=== PATIENT | female | born 1965 | race Caucasian/White ===

== ENCOUNTER 2019-09-18 17:10 | Emergency (ER) | payer MEDICAID, SELFPAY ==
[2019-09-18 17:17] VITALS: BP 155/93; PULSE 94; RESP 18; TEMP 36.6; O2SAT 95; BMI 48.8
== END 2019-09-18 19:14 | disposition left against medical advice (07) ==
PROVIDERS: Emergency Provider Emergency Medicine
DX: Z53.21 Procedure and treatment not carried out due to patient leaving prior to being seen by health care provider (principal)
CPT/HCPCS: 99281

== ENCOUNTER 2019-09-19 15:19 | Emergency (ER) | payer MEDICAID, SELFPAY ==
[2019-09-19 15:40] VITALS: BP 142/92; PULSE 107; RESP 18; TEMP 36.7; O2SAT 97; BMI 48.8
[2019-09-19 16:46] VITALS: BP 146/106; PULSE 101; RESP 20; O2SAT 97
[2019-09-19 16:55] LABS: Add Urine Microscopic? NO
[2019-09-19 16:58] LABS: Bilirubin Urine Neg (NEGATIVE); Blood Urine Neg (Negative); Glucose Urine UA Norm (Normal); Ketones Urine Negative (Negative); Leukocyte Esterase Urine Negative (Negative); Nitrate Urine Negative (Negative); Protein Urine Neg (Negative); Specific Gravity, Urine 1.015 (1.005-1.030); Urine Appearance Clear (CLEAR); Urine Color Yellow (Yellow); Urobilinogen Urine Neg (Negative); pH Urine 7 (5-7)
--- NOTE | 2019-09-19 16:59 | CTR_ITS ---
PROCEDURE INFORMATION: Exam: CT Lumbar Spine Without Contrast Exam date and time: 09/19/2019 5:08 PM Age: 53 years old Clinical indication: Low back pain; Additional info: Back pain, radiates to right leg TECHNIQUE: Imaging protocol: Computed tomography images of the lumbar spine without contrast. Radiation optimization: All CT scans at this facility use at least one of these dose optimization techniques: automated exposure control; mA and/or kV adjustment per patient size (includes targeted exams where dose is matched to clinical indication); or iterative reconstruction. COMPARISON: CR Lumbar Spine 2-3 views* [id number] 06/02/2017 8:20 PM RADIATION DOSE METRICS: Total DLP (mGy-cm): 2918.69 FINDINGS: Vertebrae: No fracture is identified. L1-L2: No significant disc protrusion. No severe spinal canal stenosis. No significant neural foraminal narrowing. L2-L3: there is mild decreased height of the disc space and there are anterior osteophytes. There is no focal disc herniation or stenosis. L3-L4: There is moderate narrowing of the L3-L4 disc space with small anterior osteophytes. There is mild posterior bulging of the disc without focal herniation or stenosis. L4-L5: There is mild decreased height of the disc and vacuum disc phenomenon with diffuse posterior bulging of the disc without significant sagittal or foraminal stenosis. L5-S1: There is decreased height of the disc space with vacuum disc phenomenon and mild diffuse posterior bulging of the disc without focal herniation or significant stenosis. There are some degenerative changes in the facet joints bilaterally. Soft tissues: Paraspinous soft tissues are unremarkable. CT/CT lumbar spine wo con* [id number] IMPRESSION: Degenerative changes as described. Radiation Dose CTDIVOL = (mGy): DLP = 2918.69 (mGy-cm)
[2019-09-19 17:00] LABS: Basophils # 0.1 10^3/uL (0.0-0.1); Basophils % 0.5 %; Eosinophils # 0.4 10^3/uL (0.0-0.8); Eosinophils % 2.6 %; Hematocrit 44.3 % (37.0-47.0); Hemoglobin 13.8 g/dL (11.5-15.3); Lymphocytes # 4.5 10^3/uL (0.8-4.8); Lymphocytes % 29.4 %; Mean Corpuscular HGB Conc 31.2 g/dL (30.0-36.0); Mean Corpuscular Hemoglobin 28.9 pg (28.0-34.0); Mean Corpuscular Volume 92.7 fL (81-99); Mean Platelet Volume 10.2 fL (7.4-10.4); Monocytes # 1.3 10^3/uL (0.2-0.9); Monocytes % 8.3 %; Neutrophils # 9.03 10^3/uL (1.8-7.7); Neutrophils % 58.8 %; Nucleated Red Blood Cells % 0 %; Platelet Count 239 10^3/cmm (130-400); Red Blood Count 4.78 10^6/uL (4.1-5.3); Red Cell Distribution Width 13.6 % (12.1-15.1); White Blood Count 15.4 10^3/uL (4.0-10.0)
[2019-09-19 17:31] LABS: Alanine Aminotransferase 23 U/L (0-33); Albumin Level 3.9 g/dL (3.5-5.2); Alkaline Phosphatase 69 IU/L (35-105); Anion Gap 14.1 (5-19); Aspartate Amino Transferase 47 U/L (0-32); Blood Urea Nitrogen 10 mg/dL (6-20); C Reactive Protein 8.1 mg/L (0.0-4.9); Calcium 9.2 mg/dL (8.5-10.5); Carbon Dioxide 28 mmol/L (22-29); Chloride 102 mmol/L (98-107); Globulin 3.6 g/dL (1.3-4.6); Glomerular Filtration Rate 166.3 mL/min (90-130); Glucose 108 mg/dL (65-115); Osmolality Calculated 287 mOsm/kg (285-295); Potassium 4.1 mmol/L (3.5-5.1); Sodium 140 mmol/L (136-145); Total Bilirubin 0.2 mg/dL (0.15-1.2); Total Protein 7.5 g/dL (6.6-8.7)
[2019-09-19 18:20] VITALS: BP 144/82; PULSE 101; RESP 16; O2SAT 99
[2019-09-19 19:02] VITALS: RESP 18
[2019-09-19] MEDS: oxyCODONE-APAP 5-325 mg Tablet 2 TAB PO (19:02)
[2019-09-19 19:38] VITALS: BP 146/90; PULSE 94; RESP 18; O2SAT 97
[2019-09-19] MEDS: promethazine 25 mg Tablet PO (19:41)
--- NOTE | 2019-09-20 10:26 | DCPLANNER ---
channel sales manager had message to speak with patient about getting established with a primary care physician. channel sales manager spoke with patient, and she stated that she did want help in getting established with a primary care physician. channel sales manager called the [facility], spoke with Shara, gave clinic patients information. A follow up appointment was scheduled for Tuesday, September 26, 2019 at 2:[address] Garcia. channel sales manager called patient and informed patient of the scheduled appointment. Patient stated that she would attend the appointment.
--- NOTE | 2019-09-20 15:04 | W.ED.FEMALGU ---
HPI - Female Genitourinary General: Chief complaint: Urogenital-Female Stated complaint: BACK PAIN Time Seen by Provider: 09/19/19 16:38 History of Present Illness: HPI Narrative: This patient is a 53-year-old female presenting with back pain. She has a history of chronic back pain but it is been much worse recently since she has been moving. She denies any specific injury. The pain does go down her right leg at times. She has previously taken Percocet for her back pain but does not have any as she does not have a primary care physician here yet. No neurologic symptoms. No bladder or bowel incontinence. MD elicited complaint: back pain Pertinent past history: other (Morbid obesity) Onset (ago): day(s) (Several) Quality of pain: sharp Consistency: constant Associated symptoms: Deny abdominal pain Review of Systems GI: Denies: abdominal pain, diarrhea or constipation : Denies: difficulty voiding or dysuria Musc: Reports: back pain; Denies: extremity pain, extremity swelling or joint pain Neuro: Denies: numbness in extremities, weakness in extremities or difficulty walking [facility] PFSH: Social History (Updated 09/18/19 @ 17:24 by Radha Hernandez RN) Smoking and tobacco status: current every day smoker Alcohol intake: never Physical Exam Const: COMMON NORMALS: no acute distress, patient oriented x3, no limitations and alert GENERAL APPEARANCE: cooperative and comfortable HENMT: HEAD & SCALP: normal to inspection FACE & SINUS: normal facial exam Eye: GENERAL EYE: appearance normal, both eyes and all related structures Neck/C-Spine: COMMON NORMALS: supple, no meningeal signs and no JVD Chest: COMMONS NORMALS: normal inspection of the chest Resp: COMMON NORMALS: normal respiratory effort, No use of accessory muscles and clear to auscultation bilaterally AUSCULTATION: clear to auscultation bilaterally Cardio: COMMON NORMALS: no JVD, regular rate, regular rhythm and No murmurs present (Cardio) RATE: regular rate RHYTHM: regular rhythm GI: COMMON NORMALS: Normal to inspection, nondistended, normoactive bowel sounds present, Soft to palpation and non-tender INSPECTION: Yes normal to inspection AUSCULTATION: Yes normoactive bowel sounds PALPATION: Yes Soft to palpation Back/Pelvis: LUMBAR SPINE/LOWER BACK: Yes pain with ROM and Yes lumbar spinal tenderness Extremity: COMMON NORMALS: normal to inspection Neuro: COMMON NORMALS: patient oriented x3, moves all extremities, no focal motor deficits and no sensory deficits noted SENSORIUM/ORIENTATION: Yes alert MENINGEAL SIGNS: Yes no meningeal signs Psych: COMMON NORMALS: mental status grossly normal, cooperative and normal affect Skin: COMMON NORMALS: no rashes or lesions noted and turgor normal GENERAL SKIN EXAM: no rashes or lesions noted and turgor normal Course ED course: Did not show any acute findings but plenty of chronic reasons for pain. She was clearly uncomfortable and I did give her a very small prescription for Percocet and a case management referral to help her find a primary care physician. Disc problems in the past. Because the pain was radiating down her leg and showed no prior studies are to get a CT scan. Vital Signs: Vital signs: Vital Signs Temperature 98.0 F 09/19/19 15:40 Pulse Rate 94 09/19/19 19:38 Respiratory Rate 18 09/19/19 19:38 Blood Pressure 146/90 09/19/19 19:38 Pulse Oximetry 97 09/19/19 19:38 MDM - Female Lab Data: Labs: Lab Results 09/19/19 09/19/19 09/19/19 Range/Units 16:50 16:51 16:51 WBC 15.4 H (4.0-10.0) 10^3/ uL RBC 4.78 (4.1-5.3) 10^6/u L Hgb 13.8 (11.5-15.3) g/dL Hct 44.3 (37.0-47.0) % MCV 92.7 (81-99) fL MCH 28.9 (28.0-34.0) pg MCHC 31.2 (30.0-36.0) g/dL RDW 13.6 (12.1-15.1) % Plt Count 239 (130-400) 10^3/c mm MPV 10.2 (7.4-10.4) fL Neut % (Auto) 58.8 % Lymph % (Auto) 29.4 % Dolores % (Auto) 8.3 % Eos % (Auto) 2.6 % Baso % (Auto) 0.5 % Neut # (Auto) 9.03 H (1.8-7.7) 10^3/u L Lymph # (Auto) 4.5 (0.8-4.8) 10^3/u L Dolores # (Auto) 1.3 H (0.2-0.9) 10^3/u L Eos # (Auto) 0.4 (0.0-0.8) 10^3/u L Baso # (Auto) 0.1 (0.0-0.1) 10^3/u L Nucleated RBC % (a uto) 0 % Nucleated RBCs # 0.0 /100WBC Sodium 140 (136-145) mmol/L Potassium 4.1 (3.5-5.1) mmol/L Chloride 102 (98-107) mmol/L Carbon Dioxide 28 (22-29) mmol/L Anion Gap 14.1 (5-19) BUN 10 (6-20) mg/dL Creatinine 0.4 L (0.5-0.9) mg/dL GFR Calculation 166.3 H (90-130) mL/min Glucose 108 (65-115) mg/dL Calculated Osmolal ity 287 (285-295) mOsm/k g Calcium 9.2 (8.5-10.5) mg/dL Total Bilirubin 0.2 (0.15-1.2) mg/dL AST 47 H (0-32) U/L ALT 23 (0-33) U/L Alkaline Phosphata se 69 (35-105) IU/L C-Reactive Protein (0.0-4.9) mg/L Total Protein 7.5 (6.6-8.7) g/dL Albumin 3.9 (3.5-5.2) g/dL Globulin 3.6 (1.3-4.6) g/dL Urine Color Yellow (Yellow) Urine Appearance Clear (CLEAR) Urine pH 7 (5-7) Ur Specific Gravit y 1.015 (1.005-1.030) Urine Protein Neg (Negative) Urine Glucose (UA) Norm (Normal) Urine Ketones Negative (Negative) Urine Blood Neg (Negative) Urine Nitrate Negative (Negative) Urine Bilirubin Neg (NEGATIVE) Urine Urobilinogen Neg (Negative) mg/dL Ur Leukocyte Karly ase Negative (Negative) 09/19/19 Range/Units 16:51 WBC (4.0-10.0) 10^3/ uL RBC (4.1-5.3) 10^6/u L Hgb (11.5-15.3) g/dL Hct (37.0-47.0) % MCV (81-99) fL MCH (28.0-34.0) pg MCHC (30.0-36.0) g/dL RDW (12.1-15.1) % Plt Count (130-400) 10^3/c mm MPV (7.4-10.4) fL Neut % (Auto) % Lymph % (Auto) % Dolores % (Auto) % Eos % (Auto) % Baso % (Auto) % Neut # (Auto) (1.8-7.7) 10^3/u L Lymph # (Auto) (0.8-4.8) 10^3/u L Dolores # (Auto) (0.2-0.9) 10^3/u L Eos # (Auto) (0.0-0.8) 10^3/u L Baso # (Auto) (0.0-0.1) 10^3/u L Nucleated RBC % (a uto) % Nucleated RBCs # /100WBC Sodium (136-145) mmol/L Potassium (3.5-5.1) mmol/L Chloride (98-107) mmol/L Carbon Dioxide (22-29) mmol/L Anion Gap (5-19) BUN (6-20) mg/dL Creatinine (0.5-0.9) mg/dL GFR Calculation (90-130) mL/min Glucose (65-115) mg/dL Calculated Osmolal ity (285-295) mOsm/k g Calcium (8.5-10.5) mg/dL Total Bilirubin (0.15-1.2) mg/dL AST (0-32) U/L ALT (0-33) U/L Alkaline Phosphata se (35-105) IU/L C-Reactive Protein 8.1 H (0.0-4.9) mg/L Total Protein (6.6-8.7) g/dL Albumin (3.5-5.2) g/dL Globulin (1.3-4.6) g/dL Urine Color (Yellow) Urine Appearance (CLEAR) Urine pH (5-7) Ur Specific Gravit y (1.005-1.030) Urine Protein (Negative) Urine Glucose (UA) (Normal) Urine Ketones (Negative) Urine Blood (Negative) Urine Nitrate (Negative) Urine Bilirubin (NEGATIVE) Urine Urobilinogen (Negative) mg/dL Ur Leukocyte Karly ase (Negative) Discharge Plan Discharge Patient Disposition: Home Clinical Impression: Acute lumbar back pain Qualifiers: Back pain laterality: unspecified Sciatica presence: without sciatica Qualified Code(s): M54.5 - Low back pain Condition: Stable Prescriptions: New oxycodone-acetaminophen 10-325 mg tablet 1 tab PO Q6H PRN (Reason: pain) Qty: 10 RF: 0 No Action gabapentin 600 mg tablet 600 mg PO BID RF: 0 lamotrigine 200 mg tablet 200 mg PO DAILY RF: 0 tizanidine 4 mg tablet 4 mg PO TID PRN (Reason: Muscle Pain) RF: 0 ibuprofen 200 mg Capsule 400 mg PO DAILY PRN (Reason: Pain) RF: 0 clonidine HCl 0.2 mg tablet 0.2 mg PO TID RF: 0 oxycodone-acetaminophen 10-325 mg tablet 1 tab PO Q4H PRN (Reason: Pain) RF: 0 aspirin 81 mg Tablet,Chewable 81 mg PO DAILY RF: 0 quetiapine 150 mg tablet extended release 24 hr 150 mg PO DAILY RF: 0 Discharge Orders: Discharge Order (Routine); Ordered 09/19/19 Ordered By: Rhonda Drew Discharge Diet: Advance as tolerated Discharge Activity: Resume usual activity Patient Instructions: Back Pain (ED) Activity Restrictions/Additional Instructions: Continue light activity and stretching exercises. Use the oxycodone sparingly and only when absolutely needed. Otherwise he can use ibuprofen, regular Tylenol, topical Voltaren. I have asked her family service caseworker to help you find a new primary care physician. Discharge Date/Time: 09/19/19 19:44 Coding Level of Care Code ED Substation Operator Automatic for Abdirahman Hill
--- NOTE | 2019-11-13 08:24 | DCPLANNER ---
Patient had a follow up appointment scheduled for 10.03.19 at [facility] (formerly [facility]3] - patient did attend the appointment.
== END 2019-09-19 19:44 | disposition home or self-care (01) ==
PROVIDERS: Physician Assistant; Emergency Provider Emergency Medicine
DX: M54.5 Low back pain (principal); Z79.82 Long term (current) use of aspirin; F17.210 Nicotine dependence, cigarettes, uncomplicated
CPT/HCPCS: 12345; 36415; 72131; 80053; 81003; 85025; 86140; 99283; Q0169

== ENCOUNTER 2019-11-22 18:14 | Emergency (ER) | payer MEDICAID, SELFPAY ==
[2019-11-22 18:45] VITALS: BP 127/88; PULSE 105; RESP 22; TEMP 36.6; O2SAT 95; BMI 48.8
--- NOTE | 2019-11-22 20:16 | XR_ITS ---
WS: [id number] Portable AP upright chest, 11/22/2019 Clinical Data: Cough Comparison: Portable chest, 08/10/2015. Findings: No nodules, masses or effusions are seen. The heart is normal. The pulmonary vascularity is not increased. No pneumonia or pneumothorax is seen. XR/XR chest 1V portable [id number] Impression: Negative chest.
--- NOTE | 2019-11-22 20:38 | ECG_ITS ---
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 Measurements Intervals [place] Rate: 98 P: 55 NM: 160 QRS: -3 QRSD: 76 T: 53 QT: 364 QTc: 466 Interpretive Statements SINUS RHYTHM SEPTAL MYOCARDIAL INFARCTION [40+ ms Q WAVE IN V1/V2], PROBABLY OLD Compared to ECG 08/10/2015 15:52:45 Myocardial infarct finding now present Sinus tachycardia no longer present Electronically Signed On 11-23-2019 18:52:51 CDT by Jesse Linda M.D. [id number]
--- NOTE | 2019-11-22 22:06 | W.ED.SOB ---
HPI - SOB/Dyspnea General: Chief Complaint: Shortness of Breath/Dyspnea Stated Complaint: COUGH X 3 WEEKS Time Seen by Provider: 11/22/19 20:37 History of Present Illness: HPI Narrative: Patient is a 54-year-old female comes to the ED with fever, cough shortness of breath that started approximately 2 weeks ago. PMH of hypertension. She describes the cough is been productive with yellow phlegm. She also endorses having a sore throat and body aches. She says in the last 3 days she has had nausea and vomiting. She has had trouble keeping any food or fluids down. She also started having diarrhea today. Patient says approximately 4 weeks ago she was tested for COVID-19 at [facility] and it was negative. Patient is a tobacco smoker and says she smokes a half a pack a day for the past 30 years (36-nllu-uyam history). Associated symptoms: Reports fever(s), nausea and vomiting; Deny abdominal pain, chest pain, orthopnea or palpitations Review of Systems Const: Reports: fever(s) and body aches; Denies: chills or fatigue Eyes: Denies: change in vision or eye discomfort ENMT: Denies: throat pain, odynophagia, nasal discharge or nasal congestion Card: Denies: chest pain, palpitations, edema, swelling of feet/ankles, dyspnea on exertion or orthopnea Resp: Reports: dyspnea and productive cough; Denies: non-productive cough GI: Reports: nausea, vomiting and diarrhea; Denies: abdominal pain, constipation or hematochezia : Denies: flank pain, dysuria or hematuria Musc: Denies: neck pain, back pain or extremity swelling Skin/Breast: Denies: rash or new lesions Neuro: Denies: headache(s), numbness in extremities or weakness in extremities PFSH ED PFSH: Medical History History of bipolar disorder History of hypertension Surgical History History of cholecystectomy History of hysterectomy History of knee surgery History of tonsillectomy Family History Other Cancer Hypertension Social History Smoking and tobacco status: current every day smoker Alcohol intake: never History of recent travel: No Physical Exam Const: COMMON NORMALS: patient oriented x3 and alert GENERAL APPEARANCE: cooperative, comfortable and diaphoretic NUTRITIONAL APPEARANCE: obese morbidly obese HENMT: COMMON NORMALS: normocephalic HEAD & SCALP: normocephalic MOUTH: moist mucous membranes abnormal (mild dehydration) THROAT: posterior oropharynx normal and uvula midline Eye: COMMON NORMALS: Equal, round and reactive pupils present PUPIL: Yes Equal, round and reactive pupils present Neck/C-Spine: COMMON NORMALS: supple GENERAL: Yes normal visual inspection Resp: COMMON NORMALS: normal respiratory effort, No retractions and No use of accessory muscles EFFORT & INSPECTION: Yes able to speak in complete sentences AUSCULTATION: wheezes expiratory wheezes and upper bilaterally OTHER: Patient has some coarse lung sounds at the bases bilaterally. Cardio: COMMON NORMALS: regular rate, regular rhythm, S1 normal heart sound present, S2 normal heart sound present, No gallops present (Cardio), No clicks present (Cardio), No murmurs present (Cardio) and Peripheral pulses 2+ throughout RATE: regular rate RHYTHM: regular rhythm HEART SOUNDS: S1 normal heart sound present and S2 normal heart sound present PERIPHERAL PULSES: Peripheral pulses 2+ throughout GI: COMMON NORMALS: Normal to inspection, nondistended, normoactive bowel sounds present, Soft to palpation, non-tender and no masses PALPATION: Yes Soft to palpation : COMMON NORMALS: Yes no CVA tenderness BLADDER/KIDNEY EXAM: Yes no CVA tenderness Back/Pelvis: COMMON NORMALS: no CVA tenderness Extremity: COMMON NORMALS: normal to inspection Neuro: COMMON NORMALS: patient oriented x3 and moves all extremities SENSORIUM/ORIENTATION: Yes alert Skin: COMMON NORMALS: no rashes or lesions noted GENERAL SKIN EXAM: no rashes or lesions noted and dry skin Course Reevaluation(s): Reevaluation #1: I went in to reevaluate patient after she received albuterol breathing treatment. Wheezing improved upon auscultation of the lungs bilaterally. Time: 23:42 Vital Signs: Vital signs: Vital Signs Temperature 98.4 F 11/23/19 00:44 Pulse Rate 78 11/23/19 00:44 Respiratory Rate 20 H 11/23/19 00:44 Blood Pressure 148/90 10/09/20 00:44 Pulse Oximetry 94 10/09/20 00:44 MDM - SOB/Dyspnea MDM Narrative: Medical decision making narrative: Patient is a 54-year-old female who comes to the ED with cough, fever, body aches and shortness of breath. Patient says symptoms started approximately 2 weeks ago. Patient was tested for COVID-19 and was negative approximately 4 weeks ago. Patient has been smoking half a pack a day for the past 30 years. Vitals 148/90, pulse 78, respirations 20, temp 98.4, O2 sat 94% on room air. Physical exam was remarkable for some bilateral upper lung wheezing and some coarse lung sounds at the bases bilaterally. Patient was given an albuterol breathing treatment and wheezing and lungs improved. EKG showed normal sinus rhythm with no ST segment elevation or depression seen. Chest x-ray showed no acute findings. CBC, CMP were unremarkable. Lactic acid was 1.4, ferritin was 249 and fibrinogen was 347. COVID-19 testing was performed and sent out to [facility] and is pending. Patient was also given IV fluids and Solu-Medrol while here in the ED. Due to patient's presentation and labs she did not meet admission criteria. She was diagnosed with a viral syndrome and sent home with a prescription for an albuterol inhaler, prednisone, tessalon perles and zofran. She was told to self quarantine for the next 3 to 14 days pending COVID-19 results. She was told to call up to [facility] in the next 2 to 3 days to get COVID-19 results or [facility] would contact her with results. She was told to return to ED if she has any worsening symptoms or increased shortness of breath. Follow-up with PCP in 7 to 10 days for reevaluation. Drink plenty of fluids and stay hydrated. Take ibuprofen or Tylenol for any fevers. Patient understood and agreed with plan. Lab Data: Attestation: I reviewed the patient's lab results. Labs: Lab Results 11/22/19 11/22/19 11/22/19 Range/Units 22:30 22:30 22:30 WBC 8.5 (4.0-10.0) 10^3/ uL RBC 4.78 (4.1-5.3) 10^6/u L Hgb 13.6 (11.5-15.3) g/dL Hct 43.5 (37.0-47.0) % MCV 91.0 (81-99) fL MCH 28.5 (28.0-34.0) pg MCHC 31.3 (30.0-36.0) g/dL RDW 13.9 (12.1-15.1) % Plt Count 218 (130-400) 10^3/c mm MPV 9.9 (7.4-10.4) fL Neut % (Auto) 22.3 % Lymph % (Auto) 63.9 % Bennett % (Auto) 12.5 % Eos % (Auto) 0.4 % Baso % (Auto) 0.5 % Neut # (Auto) 1.90 (1.8-7.7) 10^3/u L Lymph # (Auto) 5.4 H (0.8-4.8) 10^3/u L Bennett # (Auto) 1.1 H (0.2-0.9) 10^3/u L Eos # (Auto) 0.0 (0.0-0.8) 10^3/u L Baso # (Auto) 0.0 (0.0-0.1) 10^3/u L Nucleated RBC % (a uto) 0 % Nucleated RBCs # 0.0 /100WBC Fibrinogen 347 (174-498) mg/dL Sodium 140 (136-145) mmol/L Potassium 3.7 (3.5-5.1) mmol/L Chloride 103 (98-107) mmol/L Carbon Dioxide 25 (22-29) mmol/L Anion Gap 15.7 (5-19) BUN 11 (6-20) mg/dL Creatinine 0.5 (0.5-0.9) mg/dL GFR Calculation 128.1 (90-130) mL/min Glucose 96 (65-115) mg/dL Calculated Osmolal ity 289 (285-295) mOsm/k g Lactic Acid (0.5-2.2) mmol/L Calcium 9.7 (8.5-10.5) mg/dL Ferritin 249 H (15-150) ng/mL Total Bilirubin 0.3 (0.15-1.2) mg/dL AST 70 H (0-32) U/L ALT 24 (0-33) U/L Alkaline Phosphata se 87 (35-105) IU/L C-Reactive Protein 2.6 (0.0-4.9) mg/L NT-Pro-B Natriuret Pep 88 (0-125) pg/mL Total Protein 8.2 (6.6-8.7) g/dL Albumin 3.9 (3.5-5.2) g/dL Globulin 4.3 (1.3-4.6) g/dL 11/22/19 Range/Units 22:30 WBC (4.0-10.0) 10^3/ uL RBC (4.1-5.3) 10^6/u L Hgb (11.5-15.3) g/dL Hct (37.0-47.0) % MCV (81-99) fL MCH (28.0-34.0) pg MCHC (30.0-36.0) g/dL RDW (12.1-15.1) % Plt Count (130-400) 10^3/c mm MPV (7.4-10.4) fL Neut % (Auto) % Lymph % (Auto) % Bennett % (Auto) % Eos % (Auto) % Baso % (Auto) % Neut # (Auto) (1.8-7.7) 10^3/u L Lymph # (Auto) (0.8-4.8) 10^3/u L Bennett # (Auto) (0.2-0.9) 10^3/u L Eos # (Auto) (0.0-0.8) 10^3/u L Baso # (Auto) (0.0-0.1) 10^3/u L Nucleated RBC % (a uto) % Nucleated RBCs # /100WBC Fibrinogen (174-498) mg/dL Sodium (136-145) mmol/L Potassium (3.5-5.1) mmol/L Chloride (98-107) mmol/L Carbon Dioxide (22-29) mmol/L Anion Gap (5-19) BUN (6-20) mg/dL Creatinine (0.5-0.9) mg/dL GFR Calculation (90-130) mL/min Glucose (65-115) mg/dL Calculated Osmolal ity (285-295) mOsm/k g Lactic Acid 1.4 (0.5-2.2) mmol/L Calcium (8.5-10.5) mg/dL Ferritin (15-150) ng/mL Total Bilirubin (0.15-1.2) mg/dL AST (0-32) U/L ALT (0-33) U/L Alkaline Phosphata se (35-105) IU/L C-Reactive Protein (0.0-4.9) mg/L NT-Pro-B Natriuret Pep (0-125) pg/mL Total Protein (6.6-8.7) g/dL Albumin (3.5-5.2) g/dL Globulin (1.3-4.6) g/dL Imaging Data^: CXR: Attestation: I personally reviewed and interpreted this imaging study as follows: My impression: No acute findings or infiltrates. EKG Data^: EKG 1: Attestation: I personally reviewed and interpreted this EKG as follows: EKG Interpretation Date: 11/22/19 Interpretation: Normal sinus rhythm, 98 bpm, no ST segment elevation or depression seen. Patient does have a Q wave and leads V1 and V2. Discharge Plan Discharge Patient Disposition: Home Clinical Impression: Viral syndrome Condition: Stable Prescriptions: New prednisone 20 mg tablet 20 mg PO TID 5 Days Qty: 15 RF: 0 albuterol sulfate 90 mcg/actuation aerosol powdr breath activated 2 inh INHALATION Q6H PRN (Reason: shortness of breath or wheezing) Qty: 1 RF: 0 Zofran 4 mg tablet 4 mg PO Q8H Qty: 20 RF: 0 Tessalon Perles 100 mg capsule 100 mg PO BID PRN (Reason: cough) Qty: 30 RF: 0 No Action gabapentin 800 mg tablet 800 mg PO TID Qty: 90 RF: 3 quetiapine 150 mg tablet extended release 24 hr 150 mg PO DAILY Qty: 30 RF: 2 clonidine HCl 0.2 mg tablet 0.2 mg PO TID Qty: 90 RF: 3 (DME) manual wheelchair See Rx Instructions .Route .MEDSUPPLY Qty: 1 RF: 0 ondansetron HCl [Zofran] 8 mg tablet 8 mg PO Q8H PRN (Reason: nausea and vomiting) Qty: 20 RF: 0 ibuprofen 800 mg tablet 800 mg PO TID PRN (Reason: pain) Qty: 90 RF: 1 tizanidine 4 mg tablet 4 mg PO TID PRN (Reason: Muscle Pain) Qty: 90 RF: 1 lamotrigine 200 mg tablet 200 mg PO DAILY RF: 0 oxycodone-acetaminophen 10-325 mg tablet 1 tab PO Q4H PRN (Reason: Pain) RF: 0 aspirin 81 mg Tablet,Chewable 81 mg PO DAILY RF: 0 oxycodone-acetaminophen 10-325 mg tablet 1 tab PO Q6H PRN (Reason: pain) Qty: 10 RF: 0 Discharge Orders: Discharge Order (Routine); Ordered 11/22/19 Ordered By: Sabino Gibbs Discharge Diet: Advance as tolerated Discharge Activity: Increase activity as tolerated Patient Instructions: Viral Syndrome (ED) Activity Restrictions/Additional Instructions: Follow-up with medical provider as directed in 3-5 days. COVID testing was performed and sent to lab and results will be back in 2 to 3 days. Self quarantine for the next 3 days or up to 12 days pending on COVID testing results. Contact [facility] in 2 to 3 days to get results or [facility] will contact you with results. Take prescribed Zofran for nausea, prednisone and albuterol inhaler for shortness of breath or wheezing. Take ibuprofen or Tylenol for fevers. Drink plenty of fluids and stay hydrated. Symptom management with [id number] cough and nasal decongestant meds. Return to the ER or your medical provider if condition worsens. Please read and understand discharge instructions. If any questions, please ask. Discharge Date/Time: 11/23/19 00:40 Coding Level of Care Code ED Core Filer for Abdirahman Fwdiana Exam Comprehensive
[2019-11-22 22:22] VITALS: BP 130/74; PULSE 88; RESP 20; O2SAT 95
[2019-11-22 22:40] LABS: Basophils % 0.5 %; Eosinophils % 0.4 %; Hematocrit 43.5 % (37.0-47.0); Hemoglobin 13.6 g/dL (11.5-15.3); Lymphocytes # 5.4 10^3/uL (0.8-4.8); Lymphocytes % 63.9 %; Mean Corpuscular HGB Conc 31.3 g/dL (30.0-36.0); Mean Corpuscular Hemoglobin 28.5 pg (28.0-34.0); Mean Platelet Volume 9.9 fL (7.4-10.4); Monocytes # 1.1 10^3/uL (0.2-0.9); Monocytes % 12.5 %; Neutrophils % 22.3 %; Nucleated Red Blood Cells % 0 %; Platelet Count 218 10^3/cmm (130-400); Red Blood Count 4.78 10^6/uL (4.1-5.3); Red Cell Distribution Width 13.9 % (12.1-15.1); White Blood Count 8.5 10^3/uL (4.0-10.0)
[2019-11-22 22:49] LABS: Fibrinogen 347 mg/dL (174-498)
[2019-11-22 22:53] LABS: Lactic Sepsis W/Reflex 1.4 mmol/L (0.5-2.2)
[2019-11-22 23:03] LABS: Alanine Aminotransferase 24 U/L (0-33); Albumin Level 3.9 g/dL (3.5-5.2); Alkaline Phosphatase 87 IU/L (35-105); Anion Gap 15.7 (5-19); Aspartate Amino Transferase 70 U/L (0-32); Blood Urea Nitrogen 11 mg/dL (6-20); C Reactive Protein 2.6 mg/L (0.0-4.9); Calcium 9.7 mg/dL (8.5-10.5); Carbon Dioxide 25 mmol/L (22-29); Chloride 103 mmol/L (98-107); Ferritin 249 ng/mL (15-150); Globulin 4.3 g/dL (1.3-4.6); Glomerular Filtration Rate 128.1 mL/min (90-130); Glucose 96 mg/dL (65-115); NT Pro B Type Natriuretic Pept 88 pg/mL (0-125); Osmolality Calculated 289 mOsm/kg (285-295); Potassium 3.7 mmol/L (3.5-5.1); Sodium 140 mmol/L (136-145); Total Bilirubin 0.3 mg/dL (0.15-1.2); Total Protein 8.2 g/dL (6.6-8.7)
[2019-11-22] MEDS: sodium chloride 0.9% 1,000 ML 999 ML IV (23:08)
[2019-11-22] MEDS: ondansetron 2 mg/ML SDV 2 mL 4 MG IVP (23:08)
[2019-11-22 23:13] VITALS: PULSE 98; RESP 18; O2SAT 94
[2019-11-22 23:14] VITALS: BP 153/75; PULSE 95; RESP 18; O2SAT 93
[2019-11-22 23:22] VITALS: PULSE 101
[2019-11-23] MEDS: HYDROcodone-acetaminophen 7.5-325 mg Tablet 1 TAB PO (00:03)
[2019-11-23 00:44] VITALS: BP 148/90; PULSE 78; RESP 20; TEMP 36.9; O2SAT 94
[2019-11-24 22:32] LABS: Quest SARS-CoV-2 RNA NOT DETECTED (NOT DETECTED)
--- NOTE | 2019-11-25 08:37 | PC.NURSE ---
Pt called and notified of negative COVID result.
== END 2019-11-23 00:40 | disposition home or self-care (01) ==
PROVIDERS: Emergency Medicine; Emergency Provider Physician Assistant
DX: B34.9 Viral infection, unspecified (principal); Z79.82 Long term (current) use of aspirin; I10 Essential (primary) hypertension; F17.210 Nicotine dependence, cigarettes, uncomplicated
CPT/HCPCS: 12345; 71045; 80053; 82728; 83605; 83880; 85025; 85384; 86140; 87635; 93005; 94640; 96361; 96374; 96375; 99283; 99284; J2405; J2930; J3535; J7030

== ENCOUNTER 2020-11-27 20:44 | Emergency (ER) | payer MEDICAID, SELFPAY ==
[2020-11-27 20:48] VITALS: BP 170/129; PULSE 111; RESP 18; TEMP 36.9; O2SAT 95; BMI 34.8
--- NOTE | 2020-11-27 20:49 | XRR_ITS ---
PROCEDURE INFORMATION: Exam: XR Right Knee Exam date and time: 11/27/2020 8:49 PM Age: 55 years old Clinical indication: Injury or trauma; Fall; Blunt trauma; Right; Prior surgery; Patient HX: Patient fell down stairs. C/O knee pain. TECHNIQUE: Imaging protocol: XR Right knee. Views: 3 views. Total images: 3 COMPARISON: CR Knee 3 views, RIGHT* [id number] 12/22/2014 6:06 PM FINDINGS: Bones/joints: No visible evidence of active or acute osseous pathology. Moderate primary osteoarthritis with medial joint space height loss and hypertrophic spurring with eburnation. Osteopenia/osteoporosis. Synovial osteochondromatosis. No radiographically visible joint effusion. Soft tissues: Soft tissue phleboliths. XR/XR knee RT 3V* [id number] IMPRESSION: Nonacute. Radiation Dose CTDIVOL = (mGy): DLP = (mGy-cm)
--- NOTE | 2020-11-27 20:49 | XRR_ITS ---
PROCEDURE INFORMATION: Exam: XR Right Shoulder Exam date and time: 11/27/2020 8:49 PM Age: 55 years old Clinical indication: Injury or trauma; Fall; Blunt trauma (contusions or hematomas); Right; Patient HX: Patient fell down stairs. C/O shoulder pain. ; Additional info: Fall injury TECHNIQUE: Imaging protocol: XR Right shoulder. Views: 2 or more views. Total images: 3 COMPARISON: CR Shoulder 2+ views RIGHT* [id number] 01/06/2016 1:38 PM FINDINGS: Bones/joints: No visible evidence of active or acute osseous pathology. Soft tissues: Unremarkable. XR/XR shoulder RT min 2V* [id number] IMPRESSION: Nonacute. Radiation Dose CTDIVOL = (mGy): DLP = (mGy-cm)
--- NOTE | 2020-11-27 20:49 | XRR_ITS ---
PROCEDURE INFORMATION: Exam: XR Right Ankle Exam date and time: 11/27/2020 8:49 PM Age: 55 years old Clinical indication: Injury or trauma; Fall; Blunt trauma; Ankle; Right TECHNIQUE: Imaging protocol: XR Right ankle. Views: 3 or more views. Total images: 3 COMPARISON: No relevant prior studies available. FINDINGS: Bones/joints: No visible evidence of active or acute osseous pathology. Soft tissues: Unremarkable. XR/XR ankle RT min 3V* [id number] IMPRESSION: Nonacute. Radiation Dose CTDIVOL = (mGy): DLP = (mGy-cm)
--- NOTE | 2020-11-27 20:55 | XRR_ITS ---
PROCEDURE INFORMATION: Exam: XR Lumbosacral Spine Exam date and time: 11/27/2020 8:55 PM Age: 55 years old Clinical indication: Injury or trauma; Blunt trauma (contusions or hematomas); Injury details: Fall down stairs; Prior surgery; Surgery type: Gb TECHNIQUE: Imaging protocol: XR of the lumbosacral spine. Views: 2 or 3 views. Total images: 3 COMPARISON: CT lumbar spine wo con* [id number] 09/19/2019 5:21 PM FINDINGS: Bones/joints: No visible acute osseous abnormality. Pedicles intact. Lumbariation of S1. No visible spondylolysis or spondylolisthesis. Degenerative disease with spondylosis deformans primarily L3 and L4. Degenerative disc disease of moderate severity L3/L4, L4/L5, and L5/S1. Facet arthrosis L5/S1. Mild scoliotic curvature. Soft tissues: Unremarkable. Intraperitoneal space: Status post cholecystectomy. XR/XR lumbar spine 2-3V* [id number] IMPRESSION: Nonacute. Radiation Dose CTDIVOL = (mGy): DLP = (mGy-cm)
--- NOTE | 2020-11-27 21:00 | PC.NURSE ---
Applied ice to right shoulder/ankle and knee
--- NOTE | 2020-11-27 22:06 | ED_ITS ---
HPI - Fall General: Chief Complaint: Fall Stated Complaint: R shoulder / R knee pain post fall Time Seen by Provider: 11/27/20 22:06 History of Present Illness: HPI Narrative: Patient comes in this evening as she was walking down the stairs slipped causing her to fall down onto her buttocks and then fall sideways breaking her wall. Patient reports pain in her right ankle and right shoulder. Patient has a history of shoulder injury. Patient appears well. Patient appears no acute distress. Review of Systems General: Reports: 10 or more systems reviewed and unremarkable except in HPI and below Musc: Reports: other (Fall injury, low back pain, right shoulder pain, right knee pain, right ank) PFS ED PFSH: Medical History (Updated 11/27/20 @ 22:18 by ANGELA Salmon) History of bipolar disorder History of hypertension Surgical History History of cholecystectomy History of hysterectomy History of knee surgery History of tonsillectomy Family History Other Cancer Hypertension Social History Smoking and tobacco status: current every day smoker Alcohol intake: never History of recent travel: No Physical Exam Const: COMMON NORMALS: no acute distress and patient oriented x3 GENERAL APPEARANCE: cooperative HENMT: COMMON NORMALS: normocephalic and Normal external nose present HEAD & SCALP: normal to inspection and normocephalic NOSE: Normal external nose present Eye: GENERAL EYE: appearance normal, both eyes and all related structures Neck/C-Spine: COMMON NORMALS: full ROM Lymph: LYMPHATIC: no lymphadenopathy noted Chest: COMMONS NORMALS: normal inspection of the chest Resp: COMMON NORMALS: normal respiratory effort EFFORT & INSPECTION: Yes able to speak in complete sentences Cardio: COMMON NORMALS: regular rate and regular rhythm RATE: regular rate RHYTHM: regular rhythm GI: COMMON NORMALS: non-tender Back/Pelvis: COMMON NORMALS: thoracic and lumbar spine normal to inspection Extremity: NARRATIVE EXTREMITY EXAM: Joint tenderness to the right ankle on the lateral side, no obvious swelling. No significant abnormality is noted to the right knee with mild tenderness to the lateral joint line. Tenderness is noted to the lateral right shoulder with guarded movement. Neuro: COMMON NORMALS: patient oriented x3 and moves all extremities Psych: COMMON NORMALS: mental status grossly normal and cooperative Skin: COMMON NORMALS: no rashes or lesions noted GENERAL SKIN EXAM: no rashes or lesions noted Course Vital Signs: Vital signs: Vital Signs Temperature 98.4 F 11/27/20 20:48 Pulse Rate 111 H 11/27/20 20:48 Respiratory Rate 18 11/27/20 20:48 Blood Pressure 170/129 11/27/20 20:48 Pulse Oximetry 95 11/27/20 20:48 MDM - Fall MDM Narrative: Medical decision making narrative: Patient came in for evaluation after a fall while walking down the stairs. The false happened when patient lost her footing on the third step from the bottom. Patient slipped and fell landing on her buttocks. Exam notes some tenderness to the right ankle on the lateral aspect. Patient also complained of some other tenderness to her right shoulder and right knee. Exam did not note any dislocation or significant deformity. Vital signs are normal. Differential diagnosis includes contusion, sprain, fracture. X-rays of the right ankle, right knee,, and right shoulder indicated no fractures but some obvious degenerative changes. Patient was given 1 hydrocodone in the ER along with Zofran for nausea. Patient was recommended to follow-up with primary care tomorrow for further prescriptions. Patient reported understanding and agreed to plan. Discharge Plan Discharge Patient Disposition: Home Clinical Impression: Fall (on) (from) other stairs and steps, initial encounter Ankle sprain Qualifiers: Encounter type: initial encounter Involved ligament of ankle: unspecified ligament Laterality: right Qualified Code(s): S93.401A - Sprain of unspecified ligament of right ankle, initial encounter Contusion of right shoulder Qualifiers: Encounter type: initial encounter Qualified Code(s): S40.011A - Contusion of right shoulder, initial encounter Condition: Stable Prescriptions: No Action gabapentin 800 mg tablet 800 mg PO TID Qty: 90 RF: 3 clonidine HCl 0.2 mg tablet 0.2 mg PO TID Qty: 90 RF: 3 (DME) manual wheelchair See Rx Instructions .Route .MEDSUPPLY Qty: 1 RF: 0 ondansetron HCl [Zofran] 8 mg tablet 8 mg PO Q8H PRN (Reason: nausea and vomiting) Qty: 20 RF: 0 ibuprofen 800 mg tablet 800 mg PO TID PRN (Reason: pain) Qty: 90 RF: 1 tizanidine 4 mg tablet 4 mg PO TID PRN (Reason: Muscle Pain) Qty: 90 RF: 1 quetiapine 150 mg tablet extended release 24 hr 150 mg PO DAILY Qty: 30 RF: 2 lamotrigine 200 mg tablet 200 mg PO DAILY RF: 0 oxycodone-acetaminophen 10-325 mg tablet 1 tab PO Q4H PRN (Reason: Pain) RF: 0 aspirin 81 mg Tablet,Chewable 81 mg PO DAILY RF: 0 oxycodone-acetaminophen 10-325 mg tablet 1 tab PO Q6H PRN (Reason: pain) Qty: 10 RF: 0 albuterol sulfate 90 mcg/actuation aerosol powdr breath activated 2 inh INHALATION Q6H PRN (Reason: shortness of breath or wheezing) Qty: 1 RF: 0 Zofran 4 mg tablet 4 mg PO Q8H Qty: 20 RF: 0 Tessalon Perles 100 mg capsule 100 mg PO BID PRN (Reason: cough) Qty: 30 RF: 0 Discharge Orders: Discharge ED (Routine); Ordered 11/27/20 Ordered By: Vinicio Foster Discharge Diet: Usual diet Discharge Activity: Increase activity as tolerated Patient Instructions: Ankle Sprain (ED), Opioid Safety Activity Restrictions/Additional Instructions: Use acetaminophen and ibuprofen to help control pain. Use oxycodone as prescribed for breakthrough pain. Follow-up with primary care/pain specialist for further medication for pain control. Use walker to assist with ambulation. Return to the ER for new concerns. Coding Level of Care Code ED Shuttle Hand for Abdirahman Fwd Exam Comprehensive
[2020-11-27] MEDS: ondansetron 4 MG Tablet PO (22:34)
[2020-11-27] MEDS: HYDROcodone-acetaminophen 5-325 mg Tablet 1 TAB PO (22:34)
== END 2020-11-27 22:51 | disposition home or self-care (01) ==
PROVIDERS: Emergency Provider Nurse Practitioner Family
DX: S93.401A Sprain of unspecified ligament of right ankle, initial encounter (principal); S40.011A Contusion of right shoulder, initial encounter; W10.8XXA Fall (on) (from) other stairs and steps, initial encounter; Z79.82 Long term (current) use of aspirin; I10 Essential (primary) hypertension; F17.210 Nicotine dependence, cigarettes, uncomplicated
CPT/HCPCS: 72100; 73030; 73562; 73610; 99283; Q0162

== ENCOUNTER 2021-06-11 09:01 | Emergency (ER) | payer MEDICAID, SELFPAY ==
[2021-06-11] VITALS (7 sets, daily range): BP systolic 146–167; BP diastolic 95–105; PULSE 86–90; RESP 16–18; TEMP 36.8; O2SAT 94–98; BMI 48.8
--- NOTE | 2021-06-11 11:08 | XRR_ITS ---
PROCEDURE INFORMATION: Exam: XR Right Elbow Exam date and time: 06/11/2021 11:35 AM Age: 55 years old Clinical indication: Injury or trauma; Fall; Blunt trauma (contusions or hematomas); Elbow; Right; Injury details: History--history--pt fell and now has pain in her RT shoulder, RT hip and lt knee. Pain is intense and all over the mentioned areas; Additional info: Eval for bleeding TECHNIQUE: Imaging protocol: XR Right elbow. Views: 1 or 2 views. COMPARISON: CR XR shoulder RT min 2V* [id number] 11/27/2020 9:04 PM FINDINGS: Bones/joints: Normal. Soft tissues: Normal. XR/XR elbow RT 2V [id number] IMPRESSION: No acute findings.
--- NOTE | 2021-06-11 11:08 | XRR_ITS ---
PROCEDURE INFORMATION: Exam: XR Left Knee Exam date and time: 06/11/2021 11:35 AM Age: 55 years old Clinical indication: Injury or trauma; Fall; Blunt trauma; Left; Injury details: History--history--pt fell and now has pain in her RT shoulder, RT hip and lt knee. Pain is intense and all over the mentioned areas; Additional info: Eval for pain TECHNIQUE: Imaging protocol: XR Left knee. Views: 1 or 2 views. COMPARISON: CR Knee 3 views, LEFT* [id number] 10/22/2014 5:21 PM FINDINGS: Bones/joints: No fracture or dislocation. There is mild tricompartmental degenerative changes, manifested by joint space narrowing and periarticular osteophytes, involving mainly the medial compartment. Trace joint effusion noted. Soft tissues: Normal. XR/XR knee LT 1-2V [id number] IMPRESSION: No acute injury.
--- NOTE | 2021-06-11 11:08 | XRR_ITS ---
PROCEDURE INFORMATION: Exam: XR Right Hip Exam date and time: 06/11/2021 11:35 AM Age: 55 years old Clinical indication: Injury or trauma; Fall; Blunt trauma (contusions or hematomas); Right; Injury details: History--history--pt fell and now has pain in her RT shoulder, RT hip and lt knee. Pain is intense and all over the mentioned areas; Additional info: Eval for pain TECHNIQUE: Imaging protocol: XR Right hip. Views: 1 view hip with pelvis when performed. COMPARISON: CR Hip 2-3v RIGHT wwo Pelv* [id number] 06/02/2017 8:20 PM FINDINGS: Bones/joints: No fracture or dislocation. There is mild degenerative changes of the right hip joint, manifested mainly by small periarticular osteophytes. Soft tissues: Unremarkable. XR/XR hip RT 2-3V wo/w pel* [id number] IMPRESSION: No acute injury.
--- NOTE | 2021-06-11 11:08 | XRR_ITS ---
PROCEDURE INFORMATION: Exam: XR Lumbosacral Spine Exam date and time: 06/11/2021 11:35 AM Age: 55 years old Clinical indication: Injury or trauma; Fall; Blunt trauma (contusions or hematomas); Injury details: History--history--pt fell and now has pain in her RT shoulder, RT hip and lt knee. Pain is intense and all over the mentioned areas; Additional info: Eval pain TECHNIQUE: Imaging protocol: XR of the lumbosacral spine. Views: 2 or 3 views. COMPARISON: CR XR lumbar spine 2-3V* [id number] 11/27/2020 9:04 PM FINDINGS: Bones/joints: Mild dextrocurvature of the lumbar spine is present. The normal lumbar lordosis is maintained, without listhesis. No fracture identified. Vertebral body heights are well preserved. There is multilevel degenerative changes, manifested by intervertebral disc space narrowing, endplate osteophytes and facet joint arthrosis. Soft tissues: Surgical clips project over the right hemiabdomen and pelvis bilaterally. XR/XR lumbar spine 2-3V* [id number] IMPRESSION: No acute injury.
[2021-06-11 11:23] LABS: Basophils # 0.1 10^3/uL (0.0-0.1); Basophils % 0.5 %; Eosinophils # 0.2 10^3/uL (0.0-0.8); Eosinophils % 1.1 %; Hematocrit 45.2 % (37.0-47.0); Hemoglobin 14.2 g/dL (11.5-15.3); Lymphocytes # 4.4 10^3/uL (0.8-4.8); Lymphocytes % 32.9 %; Mean Corpuscular HGB Conc 31.4 g/dL (30.0-36.0); Mean Corpuscular Hemoglobin 29.6 pg (28.0-34.0); Mean Corpuscular Volume 94.2 fl (81-99); Mean Platelet Volume 10.6 fL (7.4-10.4); Monocytes % 7.4 %; Neutrophils # 7.76 10^3/uL (1.8-7.7); Neutrophils % 57.7 %; Nucleated Red Blood Cells % 0 %; Platelet Count 240 10^3/cmm (130-400); White Blood Count 13.5 10^3/uL (4.0-10.0)
[2021-06-11] MEDS: acetaminophen 500 mg Tablet PO (11:28)
--- NOTE | 2021-06-11 11:41 | US_ITS ---
WS: [id number] TRANSVAGINAL PELVIC ULTRASOUND HISTORY: vaginal bleeding after fall COMPARISON: None available. Status post complete hysterectomy. The uterus and neither ovary identified. Consistent with a history of hysterectomy. No soft tissue masses or fluid. US/US transvaginal [id number] IMPRESSION: Negative pelvic ultrasound. Status post complete hysterectomy.
--- NOTE | 2021-06-11 11:43 | ED_ITS ---
HPI - General Adult General: Chief complaint: General Medical Stated complaint: Vaginal Bleeding, Fell and her hip and elbows Time Seen by Provider: 06/11/21 11:03 History of Present Illness: Patient is a 55-year-old female who presents the emergency room for evaluation of multiple areas of pain after 2 episodes of fall. Patient tells me that on Tuesday while walking down a flight of stairs, she fell. Patient complains of right hip elbow and lower back pain as well as and left knee pain. In addition, patient had another episode of fall on Tuesday while visiting her daughter. Patient denies any head injury. Patient denies any anticoagulation use, socially chest pain, shortness of palpitation or lightheadedness prior to the episode of fall. Patient tells me that since Tue, patient has had multiple vaginal bleeding as result of a fall. Patient denies any bruises or cuts or injury to the groin area. Patient is unclear what is the cause of this laceration. Patient denies any new vaginal discharge, or urinary complaints. Since her fall, patient has a difficulty ambulating due to significant pain. Patient does not take any medicine [id number] to relieve her pain. Onset: Tuesday/Tuesday Duration:twice Location:home Severity:moderate Associated symptoms: Deny chest pain, dyspnea, nausea, rash, palpitations or vomiting Review of Systems Const: Denies: fever(s) or chills Eyes: Denies: change in vision ENMT: Denies: mouth pain Card: Denies: chest pain or palpitations Resp: Denies: dyspnea or non-productive cough GI: Denies: abdominal pain, nausea, vomiting or diarrhea : Reports: other (+two episodes of vaginal bleeding after fall); Denies: dysuria Musc: Reports: extremity pain (+R hip/R elbow/R lower back, L knee) Skin/Breast: Denies: rash or new lesions Neuro: Denies: weakness in extremities Psych: Reports: other (Normal mood) Anish/Lymph: Denies: easy bruising PFS ED PFSH: Medical History (Updated 06/11/21 @ 13:25 by Caden Lin MD) History of bipolar disorder History of hypertension Surgical History History of cholecystectomy History of hysterectomy History of knee surgery History of tonsillectomy Family History Other Cancer Hypertension Social History Smoking and tobacco status: current every day smoker Alcohol intake: never History of recent travel: No Physical Exam Const: COMMON NORMALS: alert HENMT: COMMON NORMALS: atraumatic HEAD & SCALP: atraumatic MOUTH: moist mucous membranes not abnormal Eye: COMMON NORMALS: EOMs intact bilaterally and conjunctivae normal CONJUNCTIVA: Yes conjunctivae normal Neck/C-Spine: COMMON NORMALS: full ROM and supple Resp: COMMON NORMALS: normal respiratory effort and clear to auscultation bilaterally AUSCULTATION: clear to auscultation bilaterally Cardio: COMMON NORMALS: regular rate RATE: regular rate GI: COMMON NORMALS: Soft to palpation and non-tender PALPATION: Yes Soft to palpation Back/Pelvis: OTHER: +lumbar paraspinal tenderness to palpation Extremity: OTHER: + Decreased range of motion of the right hip due to pain. Intact range of motion of left knee right elbow. Neuro: SENSORIUM/ORIENTATION: Yes alert MOTOR EXAM: No Abnormal motor strength present and Other motor observations present (no focal motor deficits) Psych: COMMON NORMALS: speech normal SPEECH: Yes normal speech MOOD & AFFECT: Yes euthymic mood Course Vital Signs: Vital signs: Vital Signs Temperature 98.2 F 06/11/21 09:16 Pulse Rate 88 06/11/21 14:42 Respiratory Rate 16 06/11/21 13:16 Blood Pressure 167/99 06/11/21 14:42 Pulse Oximetry 94 06/11/21 14:42 MDM - General Adult Medical Decision Making 55-year-old female presented to the emergency room with complaints of right hip, right back, right elbow, left knee pain. Vision has decreased from range of motion of the right hip due to pain, and intact range of motion of the left knee and right elbow. There is mild paraspinal lumbar tenderness palpation. X-ray imaging negative today's negative for any acute findings. Patient received prednisone morphine and Dilaudid with moderate improvement in pain. Patient also complains of multivessel is a vaginal bleeding. Patient needs denies any vaginal bleeding. I have offered pelvic exam, however patient declined the exam today. However I explained to patient given her age, it is concerning to have vaginal bleeding. We did perform a transvaginal ultrasound today which showed focal findings at this time. I have given patient follow up with our welfare case worker to be seen by our outpatient primary care provider for ongoing pain. Patient aware of a call from our welfare case worker to schedule for appointment(s) and verbalizes understanding of the importance of following up. Rx percocet, menthol, prednisone PRN pain, maalox/pepcid for upset stomach Disposition: Discharge. Patient counseled regarding diagnostic impression, treatment plan. Patient given ED strict return precautions to return for continu ation, worsening, or development of new symptoms. Instructed to f/u w/ PCP regarding symptoms today. Patient verbalized understanding. Lab Data : 06/11/21 11:09 06/11/21 11:09 Radiology Impressions Elbow X-Ray 06/11/21 11:08 IMPRESSION: No acute findings. Hip/Pelvis X-Ray 06/11/21 11:08 IMPRESSION: No acute injury. Knee X-Ray 06/11/21 11:08 IMPRESSION: No acute injury. Lumbar Spine X-Ray 06/11/21 11:08 IMPRESSION: No acute injury. Transvaginal US 06/11/21 11:41 IMPRESSION: Negative pelvic ultrasound. Status post complete hysterectomy. Shoulder X-Ray 06/11/21 11:54 IMPRESSION: No acute findings. Laboratory Results WBC 13.5 10^3/uL (4.0-10.0) H 06/11/21 11:09 RBC 4.80 10^6/uL (4.1-5.3) 06/11/21 11:09 Hgb 14.2 g/dL (11.5-15.3) 06/11/21 11:09 Hct 45.2 % (37.0-47.0) 06/11/21 11:09 MCV 94.2 fl (81-99) 06/11/21 11:09 MCH 29.6 pg (28.0-34.0) 06/11/21 11:09 MCHC 31.4 g/dL (30.0-36.0) 06/11/21 11:09 RDW 13.0 % (12.1-15.1) 06/11/21 11:09 Plt Count 240 10^3/cmm (130-400) 06/11/21 11:09 MPV 10.6 fL (7.4-10.4) H 06/11/21 11:09 Neut % (Auto) 57.7 % 06/11/21 11:09 Lymph % (Auto) 32.9 % 06/11/21 11:09 [place] % (Auto) 7.4 % 06/11/21 11:09 Eos % (Auto) 1.1 % 06/11/21 11:09 Baso % (Auto) 0.5 % 06/11/21 11:09 Neut # (Auto) 7.76 10^3/uL (1.8-7.7) H 06/11/21 11:09 Lymph # (Auto) 4.4 10^3/uL (0.8-4.8) 06/11/21 11:09 [place] # (Auto) 1.0 10^3/uL (0.2-0.9) H 06/11/21 11:09 Eos # (Auto) 0.2 10^3/uL (0.0-0.8) 06/11/21 11:09 Baso # (Auto) 0.1 10^3/uL (0.0-0.1) 06/11/21 11:09 Nucleated RBC % (auto) 0 % 06/11/21 11:09 Nucleated RBCs # 0.0 /100WBC 06/11/21 11:09 Sodium 140 mmol/L (136-145) 06/11/21 11:09 Potassium 4.5 mmol/L (3.5-5.1) 06/11/21 11:09 Chloride 104 mmol/L (98-107) 06/11/21 11:09 Carbon Dioxide 25 mmol/L (22-29) 06/11/21 11:09 Anion Gap 15.5 (5-19) 06/11/21 11:09 BUN 8 mg/dL (6-20) 06/11/21 11:09 Creatinine 0.5 mg/dL (0.5-0.9) 06/11/21 11:09 GFR Calculation 127.6 mL/min (90-130) 06/11/21 11:09 Glucose 108 mg/dL (65-115) 06/11/21 11:09 Calculated Osmolality 289 mOsm/kg (285-295) 06/11/21 11:09 Calcium 8.8 mg/dL (8.5-10.5) 06/11/21 11:09 Imaging Data Other Imaging: Radiologist's impression: Phone [address] [address] XRay Report Signed Patient: Cyndi Baca Unit #: [id number] : 1965 Age/Sex: 55 / F ADM Date: 06/11/21 Loc: ER Room/Bed: Attending Dr: Ordering Provider/Ordering MD: Caden Lin MD Date of Service: 06/11/21 Procedure(s): XR shoulder RT min 2V* [id number] Accession Number(s): [id number] Report Number: [id number] PROCEDURE INFORMATION: Exam: XR Right Shoulder Exam date and time: 06/11/2021 11:59 AM Age: 55 years old Clinical indication: Injury or trauma; Fall; Blunt trauma (contusions or hematomas); Right; Injury details: History--history--pt fell and now has pain in her RT shoulder, RT hip and lt knee. Pain is intense and all over the mentioned areas TECHNIQUE: Imaging protocol: XR Right shoulder. Views: 2 or more views. COMPARISON: CR XR shoulder RT min 2V* [id number] 11/27/2020 9:04 PM FINDINGS: Bones/joints: Normal. Soft tissues: Normal. XR/XR shoulder RT min 2V* [id number] IMPRESSION: No acute findings. ? Dictated By: Kahlil Richards Signed By: Kahlil Richards Signed Date/Time: 06/11/21 1251 DD/ [address] [address] XRay Report Signed Patient: Cyndi Baca Unit #: [id number] : 1965 Age/Sex: 55 / F ADM Date: 06/11/21 Loc: ER Room/Bed: Attending Dr: Ordering Provider/Ordering MD: Caden Lin MD Date of Service: 06/11/21 Procedure(s): XR lumbar spine 2-3V* [id number] Accession Number(s): [id number] Report Number: [id number] PROCEDURE INFORMATION: Exam: XR Lumbosacral Spine Exam date and time: 06/11/2021 11:35 AM Age: 55 years old Clinical indication: Injury or trauma; Fall; Blunt trauma (contusions or hematomas); Injury details: History--history--pt fell and now has pain in her RT shoulder, RT hip and lt knee. Pain is intense and all over the mentioned areas; Additional info: Eval pain TECHNIQUE: Imaging protocol: XR of the lumbosacral spine. Views: 2 or 3 views. COMPARISON: CR XR lumbar spine 2-3V* [id number] 11/27/2020 9:04 PM FINDINGS: Bones/joints: Mild dextrocurvature of the lumbar spine is present. The normal lumbar lordosis is maintained, without listhesis. No fracture identified. Vertebral body heights are well preserved. There is multilevel degenerative changes, manifested by intervertebral disc space narrowing, endplate osteophytes and facet joint arthrosis. Soft tissues: Surgical clips project over the right hemiabdomen and pelvis bilaterally. XR/XR lumbar spine 2-3V* [id number] IMPRESSION: No acute injury. ? Dictated By: Kahlil Richards Signed By: Kahlil Richards Signed Date/Time: 06/11/21 1253 DD/ [address] [address] XRay Report Signed Patient: Cyndi Baca Unit #: [id number] : 1965 Age/Sex: 55 / F ADM Date: 06/11/21 Loc: ER Room/Bed: Attending Dr: Ordering Provider/Ordering MD: Caden Lin MD Date of Service: 06/11/21 Procedure(s): XR knee LT 1-2V 21337 Accession Number(s): [id number] Report Number: [id number] PROCEDURE INFORMATION: Exam: XR Left Knee Exam date and time: 06/11/2021 11:35 AM Age: 55 years old Clinical indication: Injury or trauma; Fall; Blunt trauma; Left; Injury details: History--history--pt fell and now has pain in her RT shoulder, RT hip and lt knee. Pain is intense and all over the mentioned areas; Additional info: Eval for pain TECHNIQUE: Imaging protocol: XR Left knee. Views: 1 or 2 views. COMPARISON: CR Knee 3 views, LEFT* [id number] 10/22/2014 5:21 PM FINDINGS: Bones/joints: No fracture or dislocation. There is mild tricompartmental degenerative changes, manifested by joint space narrowing and periarticular osteophytes, involving mainly the medial compartment. Trace joint effusion noted. Soft tissues: Normal. XR/XR knee LT 1-2V 64292 IMPRESSION: No acute injury. ? Dictated By: Kahlil Richards Signed By: Kahlil Richards Signed Date/Time: 06/11/211251 DD/ 1135 Launch[facility] [address] [place] [address] XRay Report Signed Patient: Cyndi Baca Unit #: [id number] : 1965 Age/Sex: 55 / F ADM Date: 06/11/21 Loc: ER Room/Bed: Attending Dr: Ordering Provider/Ordering MD: Caden Lin MD Date of Service: 06/11/21 Procedure(s): XR hip RT 2-3V wo/w pel* [id number] Accession Number(s): [id number] Report Number: [id number] PROCEDURE INFORMATION: Exam: XR Right Hip Exam date and time: 06/11/2021 11:35 AM Age: 55 years old Clinical indication: Injury or trauma; Fall; Blunt trauma (contusions or hematomas); Right; Injury details: History--history--pt fell and now has pain in her RT shoulder, RT hip and lt knee. Pain is intense and all over the mentioned areas; Additional info: Eval for pain TECHNIQUE: Imaging protocol: XR Right hip. Views: 1 view hip with pelvis when performed. COMPARISON: CR Hip 2-3v RIGHT wwo Pelv* [id number] 06/02/2017 8:20 PM FINDINGS: Bones/joints: No fracture or dislocation. There is mild degenerative changes of the right hip joint, manifested mainly by small periarticular osteophytes. Soft tissues: Unremarkable. XR/XR hip RT 2-3V wo/w pel* [id number] IMPRESSION: No acute injury. ? Dictated By: Kahlil Richards Signed By: Kahlil Richards Signed Date/Time: 06/11/21 1255 DD/ 1135 Cyndi Baca??55??F??1965 ? Allergy/Adv: ketorolac, lidocaine, Penicillins, Sulfa (Sulfonamide Antibiotics), tetracycline, tramadol (More??) Close Shoulder X-Ray (Signed) Kahlil Richards - 06/11/21 Lumbar Spine X-Ray (Signed) Kahlil Richards - 06/11/21 Knee X-Ray (Signed) Kahlil Richards - 06/11/21 Hip and Pelvis X-Ray (Signed) Kahlil Richards - 06/11/21 Elbow X-Ray (Signed) Kahlil Richards - 06/11/21 Lumbar Spine X-Ray (Signed) Tate Solorio - 11/27/20 Shoulder X-Ray (Signed) Tate Solorio - 11/27/20 Knee X-Ray (Signed) Tate Solorio - 11/27/20 Ankle X-Ray (Signed) Tate Solorio - 11/27/20 Chest X-Ray (Signed) Luana Godoy - 11/22/[address] (Signed) Cam Modi - 09/19/19 Launch?[facility] [address] [address] XRay Report Signed Patient: Cyndi Baca Unit #: [id number] : 1965 Age/Sex: 55 / F ADM Date: 06/11/21 Loc: ER Room/Bed: Attending Dr: Ordering Provider/Ordering MD: Caden Lin MD Date of Service: 06/11/21 Procedure(s): XR elbow RT 2V 39200 Accession Number(s): [id number] Report Number: [id number] PROCEDURE INFORMATION: Exam: XR Right Elbow Exam date and time: 06/11/2021 11:35 AM Age: 55 years old Clinical indication: Injury or trauma; Fall; Blunt trauma (contusions or hematomas); Elbow; Right; Injury details: History--history--pt fell and now has pain in her RT shoulder, RT hip and lt knee. Pain is intense and all over the mentioned areas; Additional info: Eval for bleeding TECHNIQUE: Imaging protocol: XR Right elbow. Views: 1 or 2 views. COMPARISON: CR XR shoulder RT min 2V* [id number] 11/27/2020 9:04 PM FINDINGS: Bones/joints: Normal. Soft tissues: Normal. XR/XR elbow RT 2V 19639 IMPRESSION: No acute findings. ? Dictated By: Kahlil Richards Signed By: Kahlil Richards Signed Date/Time: 06/11/21 1253 DD/ 1135 Discharge Plan Discharge Patient Disposition: Home Clinical Impression: Fall, Back pain, Hip pain, Knee pain Condition: Stable Prescriptions: New Percocet 5-325 mg tablet 1 tab PO Q8H PRN (Reason: pain) Qty: 9 0RF Pepcid 20 mg tablet 20 mg PO BID PRN (Reason: abdominal pain) 10 Days Qty: 20 0RF Maalox Advanced 1,000-60 mg tablet,chewable 1 tab PO TID PRN (Reason: abdominal pain) 7 Days Qty: 21 0RF Biofreeze (menthol) 5 % gel 1 ea topical BID PRN (Reason: pain) 10 Days Qty: 1 0RF prednisone 50 mg tablet 50 mg PO DAILY PRN (Reason: chronic pain) 5 Days Qty: 5 0RF No Action (DME) manual wheelchair See Rx Instructions .Route .MEDSUPPLY Qty: 1 0RF Rx Instructions: As directed aspirin 81 mg Tablet,Chewable 81 mg PO DAILY 0RF albuterol sulfate 90 mcg/actuation aerosol powdr breath activated 2 inh INHALATION Q6H PRN (Reason: shortness of breath or wheezing) Qty: 1 0RF Discharge Orders: Discharge ED (Routine); Ordered 06/11/21 Ordered By: Caden Lin Discharge Diet: Advance as tolerated Discharge Activity: Increase activity as tolerated Patient Instructions: Opioid Safety Activity Restrictions/Additional Instructions: Our welfare case worker will have you follow-up with a primary care provider in the next few days. You would be expected to have a phone call with our welfare case worker who will put you on the schedule. You can expect a call from us in the next 2-3 days. If you don't hear from us, call us back in the emergency room at [phone]. Take your pain medicine as instructed. Consider having repeat x-ray in 1 week if you are still having persistent pain as this can be occult fracture. Coding Level of Care Code ED Materials Branch Chief for [facility] Exam Comprehensive
[2021-06-11 11:49] LABS: Anion Gap 15.5 (5-19); Blood Urea Nitrogen 8 mg/dL (6-20); Calcium 8.8 mg/dL (8.5-10.5); Carbon Dioxide 25 mmol/L (22-29); Chloride 104 mmol/L (98-107); Glomerular Filtration Rate 127.6 mL/min (90-130); Glucose 108 mg/dL (65-115); Osmolality Calculated 289 mOsm/kg (285-295); Potassium 4.5 mmol/L (3.5-5.1); Sodium 140 mmol/L (136-145)
--- NOTE | 2021-06-11 11:53 | PC.NURSE ---
PT states she is allergic to lidocaine patch. PT states it makes her breakout everywhere.
--- NOTE | 2021-06-11 11:54 | XRR_ITS ---
PROCEDURE INFORMATION: Exam: XR Right Shoulder Exam date and time: 06/11/2021 11:59 AM Age: 55 years old Clinical indication: Injury or trauma; Fall; Blunt trauma (contusions or hematomas); Right; Injury details: History--history--pt fell and now has pain in her RT shoulder, RT hip and lt knee. Pain is intense and all over the mentioned areas TECHNIQUE: Imaging protocol: XR Right shoulder. Views: 2 or more views. COMPARISON: CR XR shoulder RT min 2V* [id number] 11/27/2020 9:04 PM FINDINGS: Bones/joints: Normal. Soft tissues: Normal. XR/XR shoulder RT min 2V* [id number] IMPRESSION: No acute findings.
[2021-06-11] MEDS: morphine 4 mg/mL SDV 1 mL IVP (12:18)
[2021-06-11] MEDS: predniSONE 20 mg Tablet 60 MG PO (12:18)
[2021-06-11] MEDS: HYDROmorphone 1 mg/mL INJ 1 mL 0.5 MG IVP (13:16)
[2021-06-11] MEDS: alum-mag-hydroxide-sime 30 mL UDC PO (13:33)
--- NOTE | 2021-06-22 15:17 | DCPLANNER ---
Addendum entered by Roselyn Allen 07/10/21 18:24: Patient had a follow up appointment scheduled with [facility] - patient did attend appointment. Original Note: Patient called case management assistant asking about a referral to be referred to a primary care physician. manager chinese spoke with patient, she stated that she did not care who she seen for a physician, that she did not have a preference. manager chinese called [facility], spoke with Radha, gave clinic patients information. A follow up appointment was scheduled for June at 11:[address] Casas at [facility]. manager chinese called patient and gave patient the appointment information.
== END 2021-06-11 14:44 | disposition home or self-care (01) ==
PROVIDERS: Family Medicine; Emergency Provider Emergency Medicine
DX: M25.551 Pain in right hip (principal); M25.521 Pain in right elbow; M25.562 Pain in left knee; M54.50 Low back pain, unspecified; N93.9 Abnormal uterine and vaginal bleeding, unspecified; F17.200 Nicotine dependence, unspecified, uncomplicated; Z90.710 Acquired absence of both cervix and uterus
CPT/HCPCS: 72100; 73030; 73070; 73502; 73560; 76830; 80048; 85025; 96374; 96375; 99284; J1170; J2270; J7512

== ENCOUNTER 2021-08-18 12:31 | Emergency (ER) | payer MEDICAID, SELFPAY ==
[2021-08-18 12:44] VITALS: PULSE 85; RESP 18; TEMP 36.9; O2SAT 95; BMI 41.8
--- NOTE | 2021-08-18 13:13 | XRR_ITS ---
PROCEDURE INFORMATION: Exam: XR Chest Exam date and time: 08/18/2021 1:20 PM Age: 55 years old Clinical indication: Cough with hemorrhage TECHNIQUE: Imaging protocol: Radiologic exam of the chest. Views: 1 view. COMPARISON: CR XR chest 1V portable [id number] 11/22/2019 10:12 PM FINDINGS: Lungs: Streaky opacities at the lung bases, likely secondary to atelectasis and/or scarring. No consolidation. Pleural spaces: Unremarkable. No pleural effusion. No pneumothorax. Heart/Mediastinum: Unremarkable. No cardiomegaly. Bones/joints: No acute osseous abnormality. Degenerative changes. XR/XR chest 1V portable [id number] IMPRESSION: No acute radiographic findings.
--- NOTE | 2021-08-18 13:14 | W.ED.URI ---
HPI - URI/Sore Throat General: Chief Complaint: Shortness of Breath/Dyspnea Stated Complaint: Coughing blood, trouble walking, abd bloated Time Seen by Provider: 08/18/21 12:55 Source: patient Mode of arrival: ambulatory Limitations: no limitations History of Present Illness: Patient is a 55-year-old female who presents to ED today with a complaint of a productive cough for the past 3 weeks. Patient states she initially thought it was secondary to allergies so was treating with [id number] allergy relief without much improvement. She states she has been trying Robitussin as well. Patient states over the past few days she has noticed a small amount of hemoptysis and hoarseness. She states she does have a history of COPD and states she uses an albuterol inhaler as needed. No difficulty swallowing/speaking. She has not been running fevers. She states she is having some pain to her right lower anterior ribs that is worse with coughing and deep inhalation. She is not having any chest pain. No lower extremity swellling/redness/calf pain. MD elicited complaint: cough and other (hoarseness, R rib pain) Onset (ago): week(s) Consistency: constant Exacerbating factors: other (coughing, deep inhalation) Associated symptoms: Reports chest pain (R rib pain); Deny abdominal pain, chills, diarrhea, ear or mastoid pain, fever(s), headache(s), nasal congestion, nausea, sinus pain or vomiting Treatments prior to arrival: cold medicine and other (allergy medication) Review of Systems Const: Denies: fever(s), chills, body aches, fatigue or malaise Eyes: Denies: change in vision ENMT: Reports: hoarseness; Denies: throat pain, odynophagia, ear or mastoid pain, nasal discharge, nasal congestion, post nasal drip or sinus pain Card: Reports: chest pain (R rib pain); Denies: palpitations, irregular heart rhythm, edema, swelling of feet/ankles, lightheadedness, syncope, pre-syncope, dyspnea on exertion or orthopnea Resp: Reports: productive cough, pain on inspiration, hemoptysis and chest congestion; Denies: dyspnea, wheezing or stridor GI: Denies: abdominal pain, nausea, vomiting or diarrhea : Denies: flank pain, dysuria or hematuria Musc: Denies: neck pain, back pain, extremity pain or joint pain Skin/Breast: Denies: rash Neuro: Denies: headache(s), numbness in extremities, weakness in extremities or sensory changes PFSH ED PFSH: Medical History (Updated 08/18/21 @ 15:31 by RHONDA Lange) History of bipolar disorder History of hypertension Surgical History History of cholecystectomy History of hysterectomy History of knee surgery History of tonsillectomy Family History Other Cancer Hypertension Social History Smoking and tobacco status: current every day smoker Alcohol intake: never History of recent travel: No Physical Exam Const: COMMON NORMALS: no acute distress, patient oriented x3, no limitations and alert GENERAL APPEARANCE: cooperative NUTRITIONAL APPEARANCE: obese morbidly obese ORIENTATION/CONSCIOUSNESS: Yes awake, Yes oriented to person, Yes oriented to place and Yes oriented to time HENMT: COMMON NORMALS: normocephalic and atraumatic HEAD & SCALP: normal to inspection, normocephalic and atraumatic FACE & SINUS: normal facial exam MOUTH: Normal oral and palatal mucosa present, lip normal and tongue normal THROAT: posterior oropharynx normal, tonsils normal and uvula midline Eye: GENERAL EYE: appearance normal, both eyes and all related structures Neck/C-Spine: COMMON NORMALS: full ROM, no lymphadenopathy and no meningeal signs GENERAL: No anterior neck swelling and No submandibular swelling Chest: COMMONS NORMALS: normal inspection of the chest OTHER: TTP R lower anterior ribs; no crepitus Resp: COMMON NORMALS: normal respiratory effort EFFORT & INSPECTION: No respiratory distress, No grunting, No stridor, Yes Actively coughing, No retractions and No uses accessory muscles AUSCULTATION: rhonchi and wheezes Cardio: COMMON NORMALS: regular rate and regular rhythm RATE: regular rate RHYTHM: regular rhythm GI: COMMON NORMALS: Normal to inspection, nondistended, normoactive bowel sounds present, Soft to palpation and non-tender PALPATION: Yes Soft to palpation OTHER: morbid obesity status limits exam : COMMON NORMALS: Yes no CVA tenderness BLADDER/KIDNEY EXAM: Yes no CVA tenderness Back/Pelvis: COMMON NORMALS: no CVA tenderness, thoracic and lumbar spine normal to inspection, no thoracic nor lumbar tenderness and thoraco-lumbar ROM normal Extremity: COMMON NORMALS: normal to inspection, no clubbing, cyanosis or edema and no calf tenderness GENERAL: Yes normal exam except as noted Neuro: DAVID COMA SCALE: document GCS findings [place] coma scale eye opening: Spontaneous [place] coma scale verbal response: Orientated [place] coma scale motor response: [place]bey commands David coma scale total score: 15 COMMON NORMALS: patient oriented x3, moves all extremities, no focal motor deficits and no sensory deficits noted SENSORIUM/ORIENTATION: Yes alert, Yes oriented to person, Yes oriented to place and Yes oriented to time MENINGEAL SIGNS: Yes no meningeal signs Skin: COMMON NORMALS: no rashes or lesions noted GENERAL SKIN EXAM: no rashes or lesions noted Course Vital Signs: Vital signs: Vital Signs Temperature 98.4 F 08/18/21 12:44 Pulse Rate 85 08/18/21 12:44 Respiratory Rate 18 08/18/21 12:44 Pulse Oximetry 95 08/18/21 12:44 MDM - URI/Sore Throat Medical Decision Making Patient states she does feel better after breathing treatment given here. CXR showing no acute abnormality. Blood work is overall unremarkable. Her vital signs are stable. I have no suspicion for PE as the cause of her hemoptysis. Her Wells score would be low probability. Most likely this is an exacerbation of her COPD. Will place her on abx/steroids and have her continue her inhaler. Recommend close follow-up with her primary care provider this week. Strict return to ED precautions verbally discussed with patient who voiced understanding. Lab Data : 08/18/21 14:25 08/18/21 14:25 Radiology Impressions Chest X-Ray 08/18/21 13:13 IMPRESSION: No acute radiographic findings. Laboratory Results WBC 12.2 10^3/uL (4.0-10.0) H 08/18/21 14:25 RBC 4.94 10^6/uL (4.1-5.3) 08/18/21 14:25 Hgb 14.3 g/dL (11.5-15.3) 08/18/21 14:25 Hct 44.1 % (37.0-47.0) 08/18/21 14:25 MCV 89.3 fl (81-99) 08/18/21 14:25 MCH 28.9 pg (28.0-34.0) 08/18/21 14:25 MCHC 32.4 g/dL (30.0-36.0) 08/18/21 14:25 RDW 13.1 % (12.1-15.1) 08/18/21 14:25 Plt Count 233 10^3/cmm (130-400) 08/18/21 14:25 MPV 10.6 fL (7.4-10.4) H 08/18/21 14:25 Neut % (Auto) 53.8 % 08/18/21 14:25 Lymph % (Auto) 36.2 % 08/18/21 14:25 [place] % (Auto) 7.5 % 08/18/21 14:25 Eos % (Auto) 1.6 % 08/18/21 14:25 Baso % (Auto) 0.5 % 08/18/21 14:25 Neut # (Auto) 6.56 10^3/uL (1.8-7.7) 08/18/21 14:25 Lymph # (Auto) 4.4 10^3/uL (0.8-4.8) 08/18/21 14:25 [place] # (Auto) 0.9 10^3/uL (0.2-0.9) 08/18/21 14:25 Eos # (Auto) 0.2 10^3/uL (0.0-0.8) 08/18/21 14:25 Baso # (Auto) 0.1 10^3/uL (0.0-0.1) 08/18/21 14:25 Nucleated RBC % (auto) 0 % 08/18/21 14:25 Nucleated RBCs # 0.0 /100WBC 08/18/21 14:25 Sodium 136 mmol/L (136-145) 08/18/21 14:25 Potassium 4.2 mmol/L (3.5-5.1) 08/18/21 14:25 Chloride 100 mmol/L (98-107) 08/18/21 14:25 Carbon Dioxide 25 mmol/L (22-29) 08/18/21 14:25 Anion Gap 15.2 (5-19) 08/18/21 14:25 BUN 8 mg/dL (6-20) 08/18/21 14:25 Creatinine 0.4 mg/dL (0.5-0.9) L 08/18/21 14:25 GFR Calculation 165.1 mL/min (90-130) H 08/18/21 14:25 Glucose 94 mg/dL (65-115) 08/18/21 14:25 Calculated Osmolality 280 mOsm/kg (285-295) L 08/18/21 14:25 Calcium 9.4 mg/dL (8.5-10.5) 08/18/21 14:25 Total Bilirubin 0.3 mg/dL (0.15-1.2) 08/18/21 14:25 AST 25 U/L (0-32) 08/18/21 14:25 ALT 13 U/L (0-33) 08/18/21 14:25 Alkaline Phosphatase 88 IU/L (35-105) 08/18/21 14:25 Total Protein 7.9 g/dL (6.6-8.7) 08/18/21 14:25 Albumin 4.3 g/dL (3.5-5.2) 08/18/21 14:25 Globulin 3.6 g/dL (1.3-4.6) 08/18/21 14:25 Procalcitonin 0.04 ng/mL (0-0.5) 08/18/21 14:25 Discharge Plan Discharge Patient Disposition: Home Clinical Impression: Acute exacerbation of chronic obstructive pulmonary disease Condition: Stable Prescriptions: New levofloxacin 750 mg tablet 750 mg PO DAILY 7 Days Qty: 7 0RF prednisone 10 mg tablet 60 mg PO DAILY 5 Days Qty: 30 0RF No Action (DME) manual wheelchair See Rx Instructions .Route .MEDSUPPLY Qty: 1 0RF Rx Instructions: As directed gabapentin 600 mg tablet 300 mg PO BID Qty: 15 2RF famotidine 20 mg tablet 20 mg PO BID Qty: 60 2RF aspirin 81 mg Tablet,Chewable 81 mg PO DAILY 0RF albuterol sulfate 90 mcg/actuation aerosol powdr breath activated 2 inh INHALATION Q6H PRN (Reason: shortness of breath or wheezing) Qty: 1 0RF Percocet 5-325 mg tablet 1 tab PO Q8H PRN (Reason: pain) Qty: 9 0RF Discharge Orders: Discharge ED (Routine); Ordered 08/18/21 Ordered By: Sophia Valdez Coding Level of Care Code ED Stockfeed Miller for Chg Fwd Exam Comprehensive
[2021-08-18 14:01] VITALS: PULSE 73; RESP 18; O2SAT 98
[2021-08-18] MEDS: ipratropium-albuterol 3 mL Neb INHALATION (14:01)
[2021-08-18 14:09] VITALS: PULSE 78
[2021-08-18 14:31] LABS: Basophils # 0.1 10^3/uL (0.0-0.1); Basophils % 0.5 %; Eosinophils # 0.2 10^3/uL (0.0-0.8); Eosinophils % 1.6 %; Hematocrit 44.1 % (37.0-47.0); Hemoglobin 14.3 g/dL (11.5-15.3); Lymphocytes # 4.4 10^3/uL (0.8-4.8); Lymphocytes % 36.2 %; Mean Corpuscular HGB Conc 32.4 g/dL (30.0-36.0); Mean Corpuscular Hemoglobin 28.9 pg (28.0-34.0); Mean Corpuscular Volume 89.3 fl (81-99); Mean Platelet Volume 10.6 fL (7.4-10.4); Monocytes # 0.9 10^3/uL (0.2-0.9); Monocytes % 7.5 %; Neutrophils # 6.56 10^3/uL (1.8-7.7); Neutrophils % 53.8 %; Nucleated Red Blood Cells % 0 %; Platelet Count 233 10^3/cmm (130-400); Red Blood Count 4.94 10^6/uL (4.1-5.3); Red Cell Distribution Width 13.1 % (12.1-15.1); White Blood Count 12.2 10^3/uL (4.0-10.0)
[2021-08-18 14:53] LABS: Alanine Aminotransferase 13 U/L (0-33); Albumin Level 4.3 g/dL (3.5-5.2); Alkaline Phosphatase 88 IU/L (35-105); Anion Gap 15.2 (5-19); Aspartate Amino Transferase 25 U/L (0-32); Blood Urea Nitrogen 8 mg/dL (6-20); Calcium 9.4 mg/dL (8.5-10.5); Carbon Dioxide 25 mmol/L (22-29); Chloride 100 mmol/L (98-107); Globulin 3.6 g/dL (1.3-4.6); Glomerular Filtration Rate 165.1 mL/min (90-130); Glucose 94 mg/dL (65-115); Osmolality Calculated 280 mOsm/kg (285-295); Potassium 4.2 mmol/L (3.5-5.1); Sodium 136 mmol/L (136-145); Total Bilirubin 0.3 mg/dL (0.15-1.2); Total Protein 7.9 g/dL (6.6-8.7)
[2021-08-18 15:00] LABS: Procalcitonin 0.04 ng/mL (0-0.5)
[2021-08-18] MEDS: acetaminophen 500 mg Tablet 1000 MG PO (15:29)
== END 2021-08-18 16:27 | disposition home or self-care (01) ==
PROVIDERS: Emergency Provider Physician Assistant
DX: J44.1 Chronic obstructive pulmonary disease with (acute) exacerbation (principal); F17.200 Nicotine dependence, unspecified, uncomplicated; R04.2 Hemoptysis; I10 Essential (primary) hypertension
CPT/HCPCS: 71045; 80053; 84145; 85025; 94640; 99283

== ENCOUNTER 2021-09-16 18:03 | Emergency (ER) | payer MEDICAID, SELFPAY ==
[2021-09-16 18:35] VITALS: PULSE 87; RESP 15; TEMP 36.6; O2SAT 96; BMI 27.8
[2021-09-16 19:44] LABS: Basophils # 0.1 10^3/uL (0.0-0.1); Basophils % 0.5 %; Eosinophils # 0.2 10^3/uL (0.0-0.8); Eosinophils % 1.5 %; Hematocrit 43.5 % (37.0-47.0); Hemoglobin 14.4 g/dL (11.5-15.3); Lymphocytes # 4.9 10^3/uL (0.8-4.8); Mean Corpuscular HGB Conc 33.1 g/dL (30.0-36.0); Mean Corpuscular Hemoglobin 29.4 pg (28.0-34.0); Mean Platelet Volume 10.9 fL (7.4-10.4); Monocytes # 1.3 10^3/uL (0.2-0.9); Monocytes % 8.9 %; Neutrophils # 8.33 10^3/uL (1.8-7.7); Neutrophils % 55.8 %; Nucleated Red Blood Cells % 0 %; Platelet Count 229 10^3/cmm (130-400); Red Blood Count 4.89 10^6/uL (4.1-5.3); Red Cell Distribution Width 13.2 % (12.1-15.1); White Blood Count 14.9 10^3/uL (4.0-10.0)
[2021-09-16 20:02] LABS: Alanine Aminotransferase 12 U/L (0-33); Albumin Level 4.1 g/dL (3.5-5.2); Alkaline Phosphatase 77 IU/L (35-105); Anion Gap 13.2 (5-19); Aspartate Amino Transferase 22 U/L (0-32); Blood Urea Nitrogen 11 mg/dL (6-20); Calcium 9.5 mg/dL (8.5-10.5); Carbon Dioxide 26 mmol/L (22-29); Chloride 102 mmol/L (98-107); Globulin 3.3 g/dL (1.3-4.6); Glomerular Filtration Rate 127.6 mL/min (90-130); Glucose 111 mg/dL (65-115); Lipase 30 U/L (13-60); Osmolality Calculated 284 mOsm/kg (285-295); Potassium 4.2 mmol/L (3.5-5.1); Sodium 137 mmol/L (136-145); Total Bilirubin 0.2 mg/dL (0.15-1.2); Total Protein 7.4 g/dL (6.6-8.7)
== END 2021-09-16 22:40 | disposition left against medical advice (07) ==
PROVIDERS: Emergency Medicine; Emergency Provider Family Medicine
DX: Z53.21 Procedure and treatment not carried out due to patient leaving prior to being seen by health care provider (principal)
CPT/HCPCS: 36415; 80053; 83690; 85025

== ENCOUNTER 2021-10-09 09:17 | Emergency (ER) | payer MEDICAID, SELFPAY ==
[2021-10-09 09:57] VITALS: BP 137/86; PULSE 97; RESP 18; TEMP 36.7; O2SAT 97; BMI 44.6
--- NOTE | 2021-10-09 10:02 | CT_ITS ---
WS: [id number] CT ABDOMEN PELVIS TECHNIQUE: Noncontrast CT of the abdomen and pelvis with coronal and sagittal reformatted images. CLINICAL INFORMATION: passing stone COMPARISON: CT 7 29,014 DLP: 1624.[address] scans at [facility] use at least one of these dose optimization techniques: automated e xposure control; mA and/or kV adjustment per patient size (includes targeted exams where dose is matc hed to clinical indication); or iterative reconstruction. FINDINGS: Bilateral adrenal adenomas largest on the RIGHT measuring 2.1 cm. Small LEFT adrenal adenom a measuring 1.0 cm. No hydronephrosis in RIGHT kidney. Suggestion of a tiny faint 2 mm calculus in th e distal RIGHT ureter just proximal to the UVJ. No ureterectasis. No hydronephrosis LEFT kidney. Normal LEFT ureter. No obstructing LEFT renal or ureteral calculi. Hepatomegaly. Noncontrast liver is otherwise normal. Prior cholecystectomy. Normal GE junction. Nonca lcified nodule RIGHT lower lobe measuring 6.3 mm increase in size compared to 2014. Recommend 12 sunitha h follow-up. Normal GE junction. Noncontrast spleen is normal. Normal noncontrast pancreas. Normal sigmoid colon. No evidence of high-grade small or large bowel obstruction.Fat-containing umbil ical hernia. Fat-containing LEFT periumbilical hernia. No herniated bowel. Prior postoperative changes hysterectomy. Cholecystectomy. CT/CT kidney stone [id number] IMPRESSION: 1. No hydronephrosis in RIGHT kidney. Suggestion of a tiny faint 2 mm calculus in the distal RIGHT ureter just proximal to the UVJ. No ureterectasis. 2. No obstructing LEFT renal or ureteral calculi. Tiny calcified nodule RIGHT lower lobe measuring 6.3 mm is slightly increased since 2014. Recommend 12 sunitha h follow-up. 3. Prior cholecystectomy and hysterectomy. 4. Fat-containing umbilical and periumbilical hernias. No herniated bowel.
--- NOTE | 2021-10-09 10:03 | ED_ITS ---
Documented by User: Leyla Mcdermott PA-C 10/09/21 12:52 HPI - Female Genitourinary General: Chief complaint: Urogenital-Female Stated complaint: Kidney pain Time Seen by Provider: 10/09/21 10:02 Source: patient Mode of arrival: ambulatory Limitations: no limitations History of Present Illness: 55-year-old female presents to the ER today for possible kidney stone. Patient reports she is currently being treated for walking pneumonia with Levaquin and steroids. Patient reports when they did the CT they also noted she had some kidney stones that seem to be passing. Patient reports 4 days ago she passed 2 stones however over the last 2 days she has been trying to pass a stone and the pain is continually worsening. She reports pain with urination. Reports blood in her urine. Patient reports constant pain however it does get worse at times. She reports nausea and vomiting. Patient reports still some difficulty breathing. Patient denies any history of kidney stones prior to this. She has not taken anything at home for pain at this time. Review of Systems General: Reports: 10 or more systems reviewed and unremarkable except in HPI and below PFSH ED PFSH: Medical History Community acquired pneumonia History of bipolar disorder History of hypertension Surgical History History of cholecystectomy History of hysterectomy History of knee surgery History of tonsillectomy Family History Other Cancer Hypertension Social History Smoking and tobacco status: never smoked Alcohol intake: never History of recent travel: No Female Reproductive History: Spontaneous abortions: No Physical Exam Const: COMMON NORMALS: patient oriented x3, no limitations and alert; apparent distress (moderate distress) and negative for average body habitus (obese) HENMT: COMMON NORMALS: normocephalic and atraumatic HEAD & SCALP: normocephalic and atraumatic Neck/C-Spine: COMMON NORMALS: full ROM and no lymphadenopathy Resp: COMMON NORMALS: normal respiratory effort EFFORT & INSPECTION: Yes able to speak in complete sentences AUSCULTATION: rhonchi right lower and wheezes right lower Cardio: COMMON NORMALS: regular rate, regular rhythm and No murmurs present (Cardio) RATE: regular rate RHYTHM: regular rhythm GI: COMMON NORMALS: Normal to inspection, nondistended, normoactive bowel sounds present and Soft to palpation; negative for non-tender (R flank tenderness) PALPATION: Yes Soft to palpation : COMMON NORMALS: Yes no CVA tenderness BLADDER/KIDNEY EXAM: Yes no CVA tenderness Back/Pelvis: COMMON NORMALS: no CVA tenderness Extremity: COMMON NORMALS: normal to inspection and full ROM Neuro: COMMON NORMALS: patient oriented x3 SENSORIUM/ORIENTATION: Yes alert Psych: COMMON NORMALS: mental status grossly normal, Normal thought process present and cooperative THOUGHT PROCESS: Normal thought process present Skin: COMMON NORMALS: no rashes or lesions noted and no wounds GENERAL SKIN EXAM: no rashes or lesions noted Course ED course: 55-year-old female presents to the ER today for possible kidney stone. Patient reports 4 days ago she passed 2 stones and then for the last 2 days she has had increasingly worse pain trying to pass another. She reports she is currently being treated for walking pneumonia with Levaquin and steroids. She still has some shortness of breath from that. Patient reports the flank pain on the right side is severe and radiating into her back. Patient reports nausea and vomiting associated. She has not been taking anything at home for symptoms. No history of kidney stones prior to this. We will get a CT scan to make sure there is not a stone too large to pass in addition to labs. We will treat patient with fluids and medication for pain and nausea. Reevaluation(s): Reevaluation #1: During evaluation I asked patient if she was allergic to ibuprofen or NSAIDs and she said no. Upon trying to give Toradol patient now claims allergy. Time: 11:10 Vital Signs: Vital signs: Vital Signs Temperature 98.0 F 10/09/21 09:57 Pulse Rate 80 10/09/21 12:56 Respiratory Rate 20 H 10/09/21 11:56 Blood Pressure 130/96 10/09/21 12:56 Pulse Oximetry 97 10/09/21 12:56 Oxygen Delivery Me thod 10/09/21 09:57 MDM - Female Medical Decision Making 55-year-old female presents to the ER today for possible kidney stone. Patient reports 4 days ago she passed 2 stones and then for the last 2 days she has had increasingly worse pain trying to pass another. She reports she is currently being treated for walking pneumonia with Levaquin and steroids. She still has some shortness of breath from that. Patient reports the flank pain on the right side is severe and radiating into her back. Patient reports nausea and vomiting associated. She has not been taking anything at home for symptoms. No history of kidney stones prior to this. We will get a CT scan to make sure there is not a stone too large to pass in addition to labs. We will treat patient with fluids and medication for pain and nausea. CT indicates a very small, faint calculus in the right distal ureter just proximal to the junction. This could possibly be causing patient's pain however her pain appears out of proportion to exam. Patient was very tearful. We did go ahead and give her 4 mg of morphine to help with the pain. The nausea did improve with Zofran. I discussed findings with patient. I would recommend she strain her urine for the next couple of days. I will send patient home with hydrocodone for couple of days for pain. She is already on tamsulosin. I am not convinced that the stone is causing all of her pain. Patient may have some low back pain also. Patient does have diagnosed pneumonia and is on antibiotics for that. Likely the white count is reflective of that. Patient is to follow-up with her PCP in 3 to 5 days. Return to the ER with any new or worsening symptoms. Patient verbalized understanding and was in agreement with the treatment plan. Lab Data : 10/09/21 10:22 10/09/21 10:22 Radiology Impressions Abdomen/Pelvis CT 10/09/21 10:02 IMPRESSION: 1. No hydronephrosis in RIGHT kidney. Suggestion of a tiny faint 2 mm calculus in the distal RIGHT ureter just proximal to the UVJ. No ureterectasis. 2. No obstructing LEFT renal or ureteral calculi. Tiny calcified nodule RIGHT lower lobe measuring 6.3 mm is slightly increased since 2013. Recommend 12 month follow-up. 3. Prior cholecystectomy and hysterectomy. 4. Fat-containing umbilical and periumbilical hernias. No herniated bowel. Laboratory Results WBC 12.6 10^3/uL (4.0-10.0) H 10/09/21 10:22 RBC 4.87 10^6/uL (4.1-5.3) 10/09/21 10:22 Hgb 14.4 g/dL (11.5-15.3) 10/09/21 10:22 Hct 45.7 % (37.0-47.0) 10/09/21 10:22 MCV 93.8 fl (81-99) 10/09/21 10:22 MCH 29.6 pg (28.0-34.0) 10/09/21 10:22 MCHC 31.5 g/dL (30.0-36.0) 10/09/21 10:22 RDW 13.5 % (12.1-15.1) 10/09/21 10:22 Plt Count 201 10^3/cmm (130-400) 10/09/21 10:22 MPV 10.4 fL (7.4-10.4) 10/09/21 10:22 Neut % (Auto) 57.1 % 10/09/21 10:22 Lymph % (Auto) 33.4 % 10/09/21 10:22 Toombs % (Auto) 7.3 % 10/09/21 10:22 Eos % (Auto) 1.4 % 10/09/21 10:22 Baso % (Auto) 0.6 % 10/09/21 10:22 Neut # (Auto) 7.17 10^3/uL (1.8-7.7) 10/09/21 10: Lymph # (Auto) 4.2 10^3/uL (0.8-4.8) 10/09/21 10:22 [place]bs # (Auto) 0.9 10^3/uL (0.2-0.9) 10/09/21 10:22 Eos # (Auto) 0.2 10^3/uL (0.0-0.8) 10/09/21 10:22 Baso # (Auto) 0.1 10^3/uL (0.0-0.1) 10/09/21 10:22 Nucleated RBC % (auto) 0 % 10/09/21 10:22 Nucleated RBCs # 0.0 /100WBC 10/09/21 10:22 Sodium 141 mmol/L (136-145) 10/09/21 10:22 Potassium 4.6 mmol/L (3.5-5.1) 10/09/21 10:22 Chloride 103 mmol/L (98-107) 10/09/21 10:22 Carbon Dioxide 27 mmol/L (22-29) 10/09/21 10:22 Anion Gap 15.6 (5-19) 10/09/21 10:22 BUN 8 mg/dL (6-20) 10/09/21 10:22 Creatinine 0.5 mg/dL (0.5-0.9) 10/09/21 10:22 GFR Calculation 127.6 mL/min (90-130) 10/09/21 10:22 Glucose 97 mg/dL (65-115) 10/09/21 10:22 Calculated Osmolality 290 mOsm/kg (285-295) 10/09/21 10:22 Calcium 9.7 mg/dL (8.5-10.5) 10/09/21 10:22 Total Bilirubin 0.3 mg/dL (0.15-1.2) 10/09/21 10:22 AST 15 U/L (0-32) 10/09/21 10: ALT 9 U/L (0-33) 10/09/21 10:22 Alkaline Phosphatase 79 U/L (35-105) 10/09/21 10:22 Total Protein 7.2 g/dL (6.6-8.7) 10/09/21 10:22 Albumin 3.9 g/dL (3.5-5.2) 10/09/21 10:22 Globulin 3.3 g/dL (1.3-4.6) 10/09/21 10:22 Urine Color Yellow (Yellow) 10/09/21 12:20 Urine Appearance Clear (CLEAR) 10/09/21 12:20 Urine pH 5 (5-7) 10/09/21 12:20 Ur Specific [place] 1.025 (1.005-1.030) 10/09/21 12:20 Urine Protein Neg (Negative) 10/09/21 12:20 Urine Glucose (UA) Norm (Normal) 10/09/21 12:20 Urine Ketones Negative (Negative) 10/09/21 12:20 Urine Blood Neg (Negative) 10/09/21 12:20 Urine Nitrate Negative (Negative) 10/09/21 12:20 Urine Bilirubin Neg (Negative) 10/09/21 12:20 Urine Urobilinogen Norm mg/dL (Negative) 10/09/21 12:20 Ur Leukocyte Esterase Negative (Negative) 10/09/21 12:20 Critical Care Time Critical Care Time: Critical Care Time: No Discharge Plan Discharge Patient Disposition: Home Clinical Impression: Urolithiasis Qualifiers: Urinary calculus location: ureter Qualified Code(s): N20.1 - Calculus of ureter Condition: Stable Prescriptions: New hydrocodone-acetaminophen 5-325 mg tablet 1 tab PO Q8H PRN (Reason: pain) Qty: 6 0RF No Action (DME) manual wheelchair See Rx Instructions .Route .MEDSUPPLY Qty: 1 0RF Rx Instructions: As directed gabapentin 600 mg tablet 300 mg PO BID Qty: 15 2RF famotidine 20 mg tablet 20 mg PO BID Qty: 60 2RF levofloxacin 750 mg tablet 750 mg PO DAILY Qty: 7 0RF ondansetron HCl 4 mg tablet 4 mg PO Q6H Qty: 30 0RF tamsulosin 0.4 mg capsule 0.4 mg PO DAILY Qty: 30 0RF aspirin 81 mg Tablet,Chewable 81 mg PO DAILY albuterol sulfate 90 mcg/actuation aerosol powdr breath activated 2 inh INHALATION Q6H PRN (Reason: shortness of breath or wheezing) Qty: 1 0RF Tylenol 325 mg Capsule 325 mg PO QID PRN (Reason: Pain) Discharge Orders: Discharge ED (Routine); Ordered 10/09/21 Ordered By: Leyla Mcdermott Referrals: Benson Deleon DO [Primary Care Provider] - Discharge Diet: Usual diet Discharge Activity: Increase activity as tolerated Patient Instructions: Opioid Safety Activity Restrictions/Additional Instructions: Continue to push fluids. Strain urine. Take hydrocodone as prescribed. If able to take ibuprofen, okay to do that for couple of days. Follow-up with PCP in 3 to 5 days. Return to the ER with new or worsening symptoms. Coding Level of Care Code ED General Dentist/Owner for Chg Fwd Exam Comprehensive Documented by User: Dheeraj Suarez DO 10/10/21 06:45 HPI - Female Genitourinary General: Chief complaint: Urogenital-Female Stated complaint: Kidney pain Time Seen by Provider: 10/09/21 10:02 PFSH ED PFSH: Medical History Community acquired pneumonia History of bipolar disorder History of hypertension Surgical History History of cholecystectomy History of hysterectomy History of knee surgery History of tonsillectomy Family History Other Cancer Hypertension Social History Smoking and tobacco status: never smoked Alcohol intake: never History of recent travel: No Course Vital Signs: Vital signs: Vital Signs Temperature 98.0 F 10/09/21 09:57 Pulse Rate 80 10/09/21 12:56 Respiratory Rate 20 H 10/09/21 11:56 Blood Pressure 130/96 10/09/21 12:56 Pulse Oximetry 97 10/09/21 12:56 Oxygen Delivery Me thod 10/09/21 09:57 MDM - Female Medical Decision Making 55-year-old female presents to the ER today for possible kidney stone. Patient reports 4 days ago she passed 2 stones and then for the last 2 days she has had increasingly worse pain trying to pass another. She reports she is currently being treated for walking pneumonia with Levaquin and steroids. She still has some shortness of breath from that. Patient reports the flank pain on the right side is severe and radiating into her back. Patient reports nausea and vomiting associated. She has not been taking anything at home for symptoms. No history of kidney stones prior to this. We will get a CT scan to make sure there is not a stone too large to pass in addition to labs. We will treat patient with fluids and medication for pain and nausea. CT indicates a very small, faint calculus in the right distal ureter just proximal to the junction. This could possibly be causing patient's pain however her pain appears out of proportion to exam. Patient was very tearful. We did go ahead and give her 4 mg of morphine to help with the pain. The nausea did improve with Zofran. I discussed [place] with patient. I would recommend she strain her urine for the next couple of days. I will send patient home with hydrocodone for couple of days for pain. She is already on tamsulosin. I am not convinced that the stone is causing all of her pain. Patient may have some low back pain also. Patient does have diagnosed pneumonia and is on antibiotics for that. Likely the white count is reflective of that. Patient is to follow-up with her PCP in 3 to 5 days. Return to the ER with any new or worsening symptoms. Patient verbalized understanding and was in agreement with the treatment plan. Chart reviewed and patient discussed with midlevel. Agree with assessment and plan. Medical Records I reviewed the patient's medical records. Lab Data : 10/09/21 10:22 10/09/21 10:22 Radiology Impressions Abdomen/Pelvis CT 10/09/21 10:02 IMPRESSION: 1. No hydronephrosis in RIGHT kidney. Suggestion of a tiny faint 2 mm calculus in the distal RIGHT ureter just proximal to the UVJ. No ureterectasis. 2. No obstructing LEFT renal or ureteral calculi. Tiny calcified nodule RIGHT lower lobe measuring 6.3 mm is slightly increased since 2013. Recommend 12 month follow-up. 3. Prior cholecystectomy and hysterectomy. 4. Fat-containing umbilical and periumbilical hernias. No herniated bowel. Laboratory Results WBC 12.6 10^3/uL (4.0-10.0) H 10/09/21 10:22 RBC 4.87 10^6/uL (4.1-5.3) 10/09/21 10:22 Hgb 14.4 g/dL (11.5-15.3) 10/09/21 10:22 Hct 45.7 % (37.0-47.0) 10/09/21 10:22 MCV 93.8 fl (81-99) 10/09/21 10:22 MCH 29.6 pg (28.0-34.0) 10/09/21 10:22 MCHC 31.5 g/dL (30.0-36.0) 10/09/21 10:22 RDW 13.5 % (12.1-15.1) 10/09/21 10:22 Plt Count 201 10^3/cmm (130-400) 10/09/21 10:22 MPV 10.4 fL (7.4-10.4) 10/09/21 10:22 Neut % (Auto) 57.1 % 10/09/21 10:22 Lymph % (Auto) 33.4 % 10/09/21 10:22 Toombs % (Auto) 7.3 % 10/09/21 10:22 Eos % (Auto) 1.4 % 10/09/21 10:22 Baso % (Auto) 0.6 % 10/09/21 10:22 Neut # (Auto) 7.17 10^3/uL (1.8-7.7) 10/09/21 10:22 Lymph # (Auto) 4.2 10^3/uL (0.8-4.8) 10/09/21 10:22 [place] # (Auto) 0.9 10^3/uL (0.2-0.9) 10/09/21 10:22 Eos # (Auto) 0.2 10^3/uL (0.0-0.8) 10/09/21 10:22 Baso # (Auto) 0.1 10^3/uL (0.0-0.1) 10/09/21 10:22 Nucleated RBC % (auto) 0 % 10/09/21 10:22 Nucleated RBCs # 0.0 /100WBC 10/09/21 10:22 Sodium 141 mmol/L (136-145) 10/09/21 10:22 Potassium 4.6 mmol/L (3.5-5.1) 10/09/21 10:22 Chloride 103 mmol/L (98-107) 10/09/21 10:22 Carbon Dioxide 27 mmol/L (22-29) 10/09/21 10:22 Anion Gap 15.6 (5-19) 10/09/21 10:22 BUN 8 mg/dL (6-20) 10/09/21 10:22 Creatinine 0.5 mg/dL (0.5-0.9) 10/09/21 10:22 GFR Calculation 127.6 mL/min (90-130) 10/09/21 10:22 Glucose 97 mg/dL (65-115) 10/09/21 10:22 Calculated Osmolality 290 mOsm/kg (285-295) 10/09/21 10:22 Calcium 9.7 mg/dL (8.5-10.5) 10/09/21 10:22 Total Bilirubin 0.3 mg/dL (0.15-1.2) 10/09/21 10:22 AST 15 U/L (0-32) 10/09/21 10:22 ALT 9 U/L (0-33) 10/09/21 10:22 Alkaline Phosphatase 79 U/L (35-105) 10/09/21 10:22 Total Protein 7.2 g/dL (6.6-8.7) 10/09/21 10:22 Albumin 3.9 g/dL (3.5-5.2) 10/09/21 10:22 Globulin 3.3 g/dL (1.3-4.6) 10/09/21 10:22 Urine Color Yellow (Yellow) 10/09/21 12:20 Urine Appearance Clear (CLEAR) 10/09/21 12:20 Urine pH 5 (5-7) 10/09/21 12:20 Ur Specific [place] 1.025 (1.005-1.030) 10/09/21 12:20 Urine Protein Neg (Negative) 10/09/21 12:20 Urine Glucose (UA) Norm (Normal) 10/09/21 12:20 Urine Ketones Negative (Negative) 10/09/21 12:20 Urine Blood Neg (Negative) 10/09/21 12:20 Urine Nitrate Negative (Negative) 10/09/21 12:20 Urine Bilirubin Neg (Negative) 10/09/21 12:20 Urine Urobilinogen Norm mg/dL (Negative) 10/09/21 12:20 Ur Leukocyte Esterase Negative (Negative) 10/09/21 12:20 Discharge Plan Discharge Patient Disposition: Home Clinical Impression: Urolithiasis Qualifiers: Urinary calculus location: ureter Qualified Code(s): N20.1 - Calculus of ureter Condition: Stable Prescriptions: New hydrocodone-acetaminophen 5-325 mg tablet 1 tab PO Q8H PRN (Reason: pain) Qty: 6 0RF No Action (DME) manual wheelchair See Rx Instructions .Route .MEDSUPPLY Qty: 1 0RF Rx Instructions: As directed gabapentin 600 mg tablet 300 mg PO BID Qty: 15 2RF famotidine 20 mg tablet 20 mg PO BID Qty: 60 2RF levofloxacin 750 mg tablet 750 mg PO DAILY Qty: 7 0RF ondansetron HCl 4 mg tablet 4 mg PO Q6H Qty: 30 0RF tamsulosin 0.4 mg capsule 0.4 mg PO DAILY Qty: 30 0RF aspirin 81 mg Tablet,Chewable 81 mg PO DAILY albuterol sulfate 90 mcg/actuation aerosol powdr breath activated 2 inh INHALATION Q6H PRN (Reason: shortness of breath or wheezing) Qty: 1 0RF Tylenol 325 mg Capsule 325 mg PO QID PRN (Reason: Pain) Discharge Orders: Discharge ED (Routine); Ordered 10/09/21 Ordered By: Leyla Mcdermott Referrals: Benson Deleon DO [Primary Care Provider] - Discharge Diet: Usual diet Discharge Activity: Increase activity as tolerated Patient Instructions: Opioid Safety Activity Restrictions/Additional Instructions: Continue to push fluids. Strain urine. Take hydrocodone as prescribed. If able to take ibuprofen, okay to do that for couple of days. Follow-up with PCP in 3 to 5 days. Return to the ER with new or worsening symptoms. Coding Level of Care Code ED General Dentist/Owner for [facility]dir[facility] Fwd Exam Comprehensive
[2021-10-09 10:28] LABS: Basophils # 0.1 10^3/uL (0.0-0.1); Basophils % 0.6 %; Eosinophils # 0.2 10^3/uL (0.0-0.8); Eosinophils % 1.4 %; Hematocrit 45.7 % (37.0-47.0); Hemoglobin 14.4 g/dL (11.5-15.3); Lymphocytes # 4.2 10^3/uL (0.8-4.8); Lymphocytes % 33.4 %; Mean Corpuscular HGB Conc 31.5 g/dL (30.0-36.0); Mean Corpuscular Hemoglobin 29.6 pg (28.0-34.0); Mean Corpuscular Volume 93.8 fl (81-99); Mean Platelet Volume 10.4 fL (7.4-10.4); Monocytes # 0.9 10^3/uL (0.2-0.9); Monocytes % 7.3 %; Neutrophils # 7.17 10^3/uL (1.8-7.7); Neutrophils % 57.1 %; Nucleated Red Blood Cells % 0 %; Platelet Count 201 10^3/cmm (130-400); Red Blood Count 4.87 10^6/uL (4.1-5.3); Red Cell Distribution Width 13.5 % (12.1-15.1); White Blood Count 12.6 10^3/uL (4.0-10.0)
[2021-10-09] MEDS: sodium chloride 0.9% 1,000 ML 999 ML IV (11:06)
[2021-10-09] MEDS: ondansetron 2 mg/ML SDV 2 mL 4 MG IVP (11:06)
[2021-10-09 11:31] LABS: Alanine Aminotransferase 9 U/L (0-33); Albumin Level 3.9 g/dL (3.5-5.2); Alkaline Phosphatase 79 U/L (35-105); Anion Gap 15.6 (5-19); Aspartate Amino Transferase 15 U/L (0-32); Blood Urea Nitrogen 8 mg/dL (6-20); Calcium 9.7 mg/dL (8.5-10.5); Carbon Dioxide 27 mmol/L (22-29); Chloride 103 mmol/L (98-107); Globulin 3.3 g/dL (1.3-4.6); Glomerular Filtration Rate 127.6 mL/min (90-130); Glucose 97 mg/dL (65-115); Osmolality Calculated 290 mOsm/kg (285-295); Potassium 4.6 mmol/L (3.5-5.1); Sodium 141 mmol/L (136-145); Total Bilirubin 0.3 mg/dL (0.15-1.2); Total Protein 7.2 g/dL (6.6-8.7)
[2021-10-09 11:56] VITALS: RESP 20; O2SAT 94
[2021-10-09] MEDS: morphine 4 mg/mL SDV 1 mL IVP (11:56)
[2021-10-09 12:32] LABS: Add Urine Microscopic? NO; Charge for UA Resulting for Rev
[2021-10-09 12:34] LABS: Protein Urine Neg (Negative); Specific Gravity, Urine 1.025 (1.005-1.030); Urine Appearance Clear (CLEAR); Urine Color Yellow (Yellow); pH Urine 5 (5-7)
[2021-10-09 12:35] LABS: Bilirubin Urine Neg (Negative); Blood Urine Neg (Negative); Glucose Urine UA Norm (Normal); Ketones Urine Negative (Negative); Leukocyte Esterase Urine Negative (Negative); Nitrate Urine Negative (Negative); Urobilinogen Urine Norm (Negative)
[2021-10-09 12:56] VITALS: BP 130/96; PULSE 80; O2SAT 97
--- NOTE | 2021-10-09 13:03 | PC.NURSE ---
PT GIVEN URINE STRAINER
== END 2021-10-09 13:03 | disposition home or self-care (01) ==
PROVIDERS: Emergency Provider Physician Assistant; PCP Family Medicine
DX: N20.1 Calculus of ureter (principal); Z79.82 Long term (current) use of aspirin; I10 Essential (primary) hypertension
CPT/HCPCS: 36415; 74176; 80053; 81003; 85025; 96374; 96375; 99285; J2270; J2405; J7030

== ENCOUNTER 2021-10-24 12:54 | Emergency (ER) | payer MEDICAID, SELFPAY ==
[2021-10-24 12:58] VITALS: BP 146/90; PULSE 87; RESP 20; TEMP 36.8; O2SAT 95; BMI 45.1
--- NOTE | 2021-10-24 13:18 | XRR_ITS ---
PROCEDURE INFORMATION: Exam: XR Chest Exam date and time: 10/24/2021 1:33 PM Age: 55 years old Clinical indication: Shortness of breath; Additional info: Dyspnea/cough TECHNIQUE: Imaging protocol: Radiologic exam of the chest. Views: 1 view. COMPARISON: CR XR chest 1V portable [id number] 08/18/2021 1:20 PM FINDINGS: Lungs: COPD and interstitial prominence. Pleural spaces: No pleural effusion. Heart/Mediastinum: Epicardial fat, without cardiomegaly. Bones/joints: Degenerative change. XR/XR chest 1V portable [id number] IMPRESSION: COPD and interstitial prominence.
[2021-10-24 13:23] VITALS: BP 125/82; PULSE 84; RESP 18; O2SAT 94
--- NOTE | 2021-10-24 13:33 | ED_ITS ---
HPI - Abdominal Pain General: Chief Complaint: Abdominal Pain Stated Complaint: SOB; pneumonia; kidney stone Time Seen by Provider: 10/24/21 13:17 Source: patient Mode of arrival: ambulatory History of Present Illness: 55-year-old female who presents to the emergency room complaining of shortness of breath she states she was seen for pneumonia last month still feels she has a pneumonia additionally states she is passing a kidney stone. Localizes pain to the right side of the abdomen MD elicited complaint: abdominal pain Onset (ago): day(s) Location: Other (Right side of the abdomen) Severity: moderate Quality: cramping Radiation: none Migration to: no migration Exacerbating factors: nothing Relieving factors: nothing Associated Symptoms: Reports bloating, GI cramping, nausea and poor appetite; Denies anorexia, belching, change in bowel habits, change in stool character, chills, coffee ground emesis, constipation, diarrhea, dyspepsia, dysuria, excessive flatus, fever(s), heartburn, hematochezia, hematuria, hematemesis, fecal incontinence, loose stools, melena, syncope and vomiting Review of Systems Const: Denies: fever(s), chills, fatigue or malaise ENMT: Denies: throat pain, ear or mastoid pain, nasal discharge or nasal congestion Card: Denies: syncope Resp: Denies: dyspnea, productive cough or non-productive cough GI: Reports: nausea, bloating and GI cramping; Denies: vomiting, hematemesis, coffee ground emesis, heartburn, diarrhea, constipation, belching, excessive flatus, fecal incontinence, change in bowel habits, change in stool character, hematochezia or melena : Denies: dysuria or hematuria Musc: Denies: neck pain or back pain Skin/Breast: Denies: rash or pruritus PFSH ED PFSH: Medical History Community acquired pneumonia History of bipolar disorder History of hypertension Surgical History History of cholecystectomy History of hysterectomy History of knee surgery History of tonsillectomy Family History Other Cancer Hypertension Social History Smoking and tobacco status: never smoked Alcohol intake: never History of recent travel: No Female Reproductive History: Spontaneous abortions: No Physical Exam Const: COMMON NORMALS: no acute distress GENERAL APPEARANCE: cooperative and comfortable ORIENTATION/CONSCIOUSNESS: Yes awake, Yes oriented to person, Yes oriented to place and Yes oriented to time HENMT: COMMON NORMALS: normocephalic and atraumatic HEAD & SCALP: normocephalic and atraumatic Resp: AUSCULTATION: rhonchi and wheezes Cardio: COMMON NORMALS: regular rate, regular rhythm and No murmurs present (Cardio) RATE: regular rate RHYTHM: regular rhythm GI: COMMON NORMALS: Soft to palpation and No hepatosplenomegaly present AUSCULTATION: Yes normoactive bowel sounds PALPATION: Yes Soft to palpation, No Tenderness to palpation present (GI), No Guarding due to palpation present (GI) and Yes No hepatosplenomegaly present : COMMON NORMALS: Yes no CVA tenderness BLADDER/KIDNEY EXAM: Yes no CVA tenderness Back/Pelvis: COMMON NORMALS: no CVA tenderness Extremity: COMMON NORMALS: normal to inspection, capillary refill normal, no clubbing, cyanosis or edema, no calf tenderness and no pedal edema Neuro: SENSORIUM/ORIENTATION: Yes oriented to person, Yes oriented to place and Yes oriented to time Skin: COMMON NORMALS: no rashes or lesions noted GENERAL SKIN EXAM: no rashes or lesions noted Course Vital Signs: Vital signs: Vital Signs Temperature 98.2 F 10/24/21 12:58 Pulse Rate 84 10/24/21 13:23 Respiratory Rate 18 10/24/21 14:06 Blood Pressure 125/82 10/24/21 13:23 Pulse Oximetry 94 10/24/21 13:23 Oxygen Delivery Me thod 10/24/21 13:23 MDM - Abdominal Pain Medical Decision Making On exam abdomen is relatively benign although she refers pain in the right side she is previous had a cholecystectomy CT is negative there is nothing in the urine is clear there is no sign of blood no sign of nephrolithiasis. No infiltrates or masses etc. on the chest x-ray there is some evidence of COPD. May be these the abdominal pain is from the abdominal wall from coughing working to breathe she is maintaining good sats now we will start her on a prednisone taper also started on Advair and albuterol. She is already been on a course of antibiotics. Follow-up with primary care doctor within the next week. If symptoms persist she may need EGD. Did ask her to start taking. Prilosec 40 mg daily Medical Records I reviewed the patient's medical records. Lab Data I reviewed the patient's lab results. : 10/24/21 13:56 10/24/21 13:56 Labs/Radiology: Radiology Impressions Chest X-Ray 10/24/21 13:18 IMPRESSION: COPD and interstitial prominence. Abdomen/Pelvis CT 10/24/21 13:36 IMPRESSION: 1. 4.9 cm left renal cyst, without urolithiasis or hydronephrosis. 2. Additional findings as described above. COMMENTS: 1. Consistent with the [employer]'s Incidental Findings Committee white paper (J Am Mary Radiol 2017): For any incidental adrenal lesion greater than or equal to 1 cm but less than or equal to 4 cm classified in this report as benign, likely benign, or containing fat (including classification as an adenoma or myelolipoma), no follow-up imaging is recommended per consensus recommendations based on imaging criteria. Further lab evaluation could be pursued if warranted based on clinical findings. 2. Consistent with the [employer]'s Incidental Findings Committee white paper (J Am Mary Radiol 2018): Any incidental renal lesion less than 1 cm or classified as too small to characterize, or any incidental cystic renal lesion characterized as simple-appearing, is likely benign. No follow-up imaging is recommended for these lesions per consensus recommendations based on imaging criteria. Laboratory Results WBC 12.1 10^3/uL (4.0-10.0) H 10/24/21 13:56 RBC 4.97 10^6/uL (4.1-5.3) 10/24/21 13:56 Hgb 14.9 g/dL (11.5-15.3) 10/24/21 13:56 Hct 46.2 % (37.0-47.0) 10/24/21 13:56 MCV 93.0 fl (81-99) 10/24/21 13:56 MCH 30.0 pg (28.0-34.0) 10/24/21 13:56 MCHC 32.3 g/dL (30.0-36.0) 10/24/21 13:56 RDW 13.3 % (12.1-15.1) 10/24/21 13:56 Plt Count 223 10^3/cmm (130-400) 10/24/21 13:56 MPV 10.9 fL (7.4-10.4) H 10/24/21 13:56 Neut % (Auto) 51.6 % 10/24/21 13:56 Lymph % (Auto) 37.5 % 10/24/21 13:56 [place] % (Auto) 9.0 % 10/24/21 13:56 Eos % (Auto) 1.1 % 10/24/21 13:56 Baso % (Auto) 0.5 % 10/24/21 13:56 Neut # (Auto) 6.25 10^3/uL (1.8-7.7) 10/24/21 13:56 Lymph # (Auto) 4.6 10^3/uL (0.8-4.8) 10/24/21 13:56 [place] # (Auto) 1.1 10^3/uL (0.2-0.9) H 10/24/21 13:56 Eos # (Auto) 0.1 10^3/uL (0.0-0.8) 10/24/21 13:56 Baso # (Auto) 0.1 10^3/uL (0.0-0.1) 10/24/21 13:56 Nucleated RBC % (auto) 0 % 10/24/21 13:56 Nucleated RBCs # 0.0 /100WBC 10/24/21 13:56 Sodium 140 mmol/L (136-145) 10/24/21 13:56 Potassium 4.3 mmol/L (3.5-5.1) 10/24/21 13:56 Chloride 104 mmol/L (98-107) 10/24/21 13:56 Carbon Dioxide 27 mmol/L (22-29) 10/24/21 13:56 Anion Gap 13.3 (5-19) 10/24/21 13:56 BUN 9 mg/dL (6-20) 10/24/21 13:56 Creatinine 0.5 mg/dL (0.5-0.9) 10/24/21 13:56 GFR Calculation 127.6 mL/min (90-130) 10/24/21 13:56 Glucose 87 mg/dL (65-115) 10/24/21 13:56 Calculated Osmolality 288 mOsm/kg (285-295) 10/24/21 13:56 Calcium 9.7 mg/dL (8.5-10.5) 10/24/21 13:56 Total Bilirubin 0.2 mg/dL (0.15-1.2) 10/24/21 13:56 AST 27 U/L (0-32) 10/24/21 13:56 ALT 12 U/L (0-33) 10/24/21 13:56 Alkaline Phosphatase 80 U/L (35-105) 10/24/21 13:56 Total Protein 7.7 g/dL (6.6-8.7) 10/24/21 13:56 Albumin 4.0 g/dL (3.5-5.2) 10/24/21 13:56 Globulin 3.7 g/dL (1.3-4.6) 10/24/21 13:56 Lipase 26 U/L (13-60) 10/24/21 13:56 Urine Color Yellow (Yellow) 10/24/21 13:56 Urine Appearance Clear (CLEAR) 10/24/21 13:56 Urine pH 5 (5-7) 10/24/21 13:56 Ur Specific [place] 1.025 (1.005-1.030) 10/24/21 13:56 Urine Protein Trace (Negative) 10/24/21 13:56 Urine Glucose (UA) Norm (Normal) 10/24/21 13:56 Urine Ketones Negative (Negative) 10/24/21 13:56 Urine Blood Neg (Negative) 10/24/21 13:56 Urine Nitrate Negative (Negative) 10/24/21 13:56 Urine Bilirubin 1+ (Negative) H 10/24/21 13:56 Urine Urobilinogen Norm mg/dL (Negative) 10/24/21 13:56 Ur Leukocyte Esterase Negative (Negative) 10/24/21 13:56 Urine RBC None /hpf (0-2) 10/24/21 13:56 Urine WBC None /hpf (0-5) 10/24/21 13:56 Ur Squamous Epith Cells 5-10 /hpf (0-5) H 10/24/21 13:56 Other Crystals 0-4 /hpf 10/24/21 13:56 Amorphous Sediment Not Reportable 10/24/21 13:56 Urine Bacteria 1+ /hpf (NONE) H 10/24/21 13:56 Urine Mucus 1+ /hpf 10/24/21 13:56 Discharge Plan Discharge Patient Disposition: Home Clinical Impression: Acute exacerbation of chronic obstructive pulmonary disease Condition: Stable Prescriptions: New prednisone 20 mg tablet 20 mg PO TID Qty: 15 0RF Rx Instructions: 1 p.o. 3 times daily x3 days, 1 p.o. twice daily x2 days, 1 p.o. daily x2 days albuterol sulfate 90 mcg/actuation HFA aerosol inhaler 2 inh INHALATION Q4H PRN (Reason: shortness of breath or wheezing) Qty: 18 0RF Advair Diskus 250-50 mcg/dose blister with device 1 inh inhalation BID Qty: 60 1RF No Action (DME) manual wheelchair See Rx Instructions .Route .MEDSUPPLY Qty: 1 0RF Rx Instructions: As directed promethazine 25 mg tablet 25 mg PO TID PRN (Reason: nausea and vomiting) Qty: 30 1RF hydrocodone-acetaminophen 5-325 mg tablet 1 tab PO Q8H PRN (Reason: pain) 7 Days Qty: 20 0RF gabapentin 600 mg tablet 300 mg PO BID Qty: 15 2RF famotidine 20 mg tablet 20 mg PO BID Qty: 60 2RF levofloxacin 750 mg tablet 750 mg PO DAILY Qty: 7 0RF ondansetron HCl 4 mg tablet 4 mg PO Q6H Qty: 30 0RF tamsulosin 0.4 mg capsule 0.4 mg PO DAILY Qty: 30 0RF aspirin 81 mg Tablet,Chewable 81 mg PO DAILY albuterol sulfate 90 mcg/actuation aerosol powdr breath activated 2 inh INHALATION Q6H PRN (Reason: shortness of breath or wheezing) Qty: 1 0RF Tylenol 325 mg Capsule 325 mg PO QID PRN (Reason: Pain) Discharge Orders: Discharge ED (Routine); Ordered 10/24/21 Ordered By: Dheeraj Suarez Referrals: Benson Deleon DO [Primary Care Provider] - Discharge Diet: Advance as tolerated Discharge Activity: Increase activity as tolerated Patient Instructions: Opioid Safety Activity Restrictions/Additional Instructions: Recheck with your primary care doctor within the next week. Coding Level of Care Code ED Electronics Instructor for Chg Fwd
--- NOTE | 2021-10-24 13:36 | CTR_ITS ---
PROCEDURE INFORMATION: Exam: CT Abdomen And Pelvis Without Contrast Exam date and time: 10/24/2021 1:52 PM Age: 55 years old Clinical indication: Abdominal pain; Flank; Right; Additional info: Flank pain TECHNIQUE: Imaging protocol: Computed tomography of the abdomen and pelvis without contrast. Radiation optimization: All CT scans at this facility use at least one of these dose optimization techniques: automated exposure control; mA and/or kV adjustment per patient size (includes targeted exams where dose is matched to clinical indication); or iterative reconstruction. COMPARISON: None RADIATION DOSE METRICS: Total DLP (mGy-cm): 1662.25 FINDINGS: Detailed evaluation of the abdominal and pelvic viscera is somewhat limited in the absence of intravenous contrast. Lungs: 5 mm right lower lobe nodule.For patients at low risk (minimal or absent history of smoking and of other known risk factors), no routine follow-up is indicated. For patients at high risk (history of smoking or of other known risk factors), consider optional CT Chest at 12 months. (Reference: [place]). Liver: Fatty infiltration of the liver. Gallbladder and bile ducts: Status post cholecystectomy. Pancreas: No pancreatic mass or ductal dilatation. Spleen: No splenomegaly. Adrenal glands: Bilateral adrenal nodularity including a dominant 2.5 cm nodular hypodense right adrenal lesion suggestive of an adenoma. Kidneys and ureters: 4.9 cm left renal cyst. No urolithiasis or hydronephrosis. Stomach and bowel: Mild small bowel dilatation without a transition zone. Appendix: No acute appendicitis. Intraperitoneal space: No significant free fluid. Vasculature: Normal caliber of the abdominal aorta. Vascular calcification. Lymph nodes: Subcentimeter lymph nodes. Urinary bladder: Nondistended bladder. Reproductive: Status post hysterectomy. Bones/joints: Schmorl's nodes and vertebral endplate irregularity. Degenerative change, disc bulging, and vacuum discs. Soft tissues: Large fat containing umbilical hernia. Injection granuloma. CT/CT kidney stone [id number] IMPRESSION: 1. 4.9 cm left renal cyst, without urolithiasis or hydronephrosis. 2. Additional findings as described above. COMMENTS: 1. Consistent with the [employer]'s Incidental Findings Committee white paper (J Am Mary Radiol 2017): For any incidental adrenal lesion greater than or equal to 1 cm but less than or equal to 4 cm classified in this report as benign, likely benign, or containing fat (including classification as an adenoma or myelolipoma), no follow-up imaging is recommended per consensus recommendations based on imaging criteria. Further lab evaluation could be pursued if warranted based on clinical findings. 2. Consistent with the [employer]'s Incidental Findings Committee white paper (J Am Mary Radiol 2018): Any incidental renal lesion less than 1 cm or classified as too small to characterize, or any incidental cystic renal lesion characterized as simple-appearing, is likely benign. No follow-up imaging is recommended for these lesions per consensus recommendations based on imaging criteria.
[2021-10-24 14:02] LABS: Basophils # 0.1 10^3/uL (0.0-0.1); Basophils % 0.5 %; Eosinophils # 0.1 10^3/uL (0.0-0.8); Eosinophils % 1.1 %; Hematocrit 46.2 % (37.0-47.0); Hemoglobin 14.9 g/dL (11.5-15.3); Lymphocytes # 4.6 10^3/uL (0.8-4.8); Lymphocytes % 37.5 %; Mean Corpuscular HGB Conc 32.3 g/dL (30.0-36.0); Mean Platelet Volume 10.9 fL (7.4-10.4); Monocytes # 1.1 10^3/uL (0.2-0.9); Neutrophils # 6.25 10^3/uL (1.8-7.7); Neutrophils % 51.6 %; Nucleated Red Blood Cells % 0 %; Platelet Count 223 10^3/cmm (130-400); Red Blood Count 4.97 10^6/uL (4.1-5.3); Red Cell Distribution Width 13.3 % (12.1-15.1); White Blood Count 12.1 10^3/uL (4.0-10.0)
[2021-10-24 14:06] VITALS: RESP 18
[2021-10-24] MEDS: promethazine 25 mg/mL SDV 1 mL IM (14:06)
[2021-10-24] MEDS: sodium chloride 0.9% 1,000 ML 999 ML IV (14:06)
[2021-10-24] MEDS: morphine 4 mg/mL SDV 1 mL IVP (14:06)
[2021-10-24 14:10] LABS: Bilirubin Urine 1+ (Negative); Blood Urine Neg (Negative); Glucose Urine UA Norm (Normal); Ketones Urine Negative (Negative); Leukocyte Esterase Urine Negative (Negative); Nitrate Urine Negative (Negative); Protein Urine Trace (Negative); Specific Gravity, Urine 1.025 (1.005-1.030); Urine Appearance Clear (CLEAR); Urine Color Yellow (Yellow); Urobilinogen Urine Norm (Negative); pH Urine 5 (5-7)
[2021-10-24 14:11] LABS: Add Urine Microscopic? YES
[2021-10-24 14:14] LABS: Alanine Aminotransferase 12 U/L (0-33); Alkaline Phosphatase 80 U/L (35-105); Aspartate Amino Transferase 27 U/L (0-32); Bacteria Urine 1+ /hpf; Blood Urea Nitrogen 9 mg/dL (6-20); Calcium 9.7 mg/dL (8.5-10.5); Carbon Dioxide 27 mmol/L (22-29); Chloride 104 mmol/L (98-107); Globulin 3.7 g/dL (1.3-4.6); Glomerular Filtration Rate 127.6 mL/min (90-130); Glucose 87 mg/dL (65-115); Lipase 26 U/L (13-60); Mucus Urine 1+ /hpf; Osmolality Calculated 288 mOsm/kg (285-295); Sodium 140 mmol/L (136-145); Total Bilirubin 0.2 mg/dL (0.15-1.2); Total Protein 7.7 g/dL (6.6-8.7)
[2021-10-24 14:15] LABS: Add Urine Culture? No; Other Crystals Urine 0-4 /hpf
[2021-10-24 14:59] LABS: Anion Gap 13.3 (5-19); Potassium 4.3 mmol/L (3.5-5.1)
[2021-10-24 15:14] VITALS: BP 138/93; PULSE 92; RESP 18; O2SAT 97
== END 2021-10-24 15:15 | disposition home or self-care (01) ==
PROVIDERS: Emergency Provider Family Medicine; PCP Family Medicine
DX: J44.1 Chronic obstructive pulmonary disease with (acute) exacerbation (principal); Z79.82 Long term (current) use of aspirin; I10 Essential (primary) hypertension
CPT/HCPCS: 71045; 74176; 80053; 81001; 83690; 85025; 96372; 96374; 99285; J2270; J2550; J7030

== ENCOUNTER 2021-11-22 10:01 | Emergency (ER) | payer MEDICAID, SELFPAY ==
[2021-11-22 10:13] VITALS: BP 155/93; PULSE 99; RESP 22; TEMP 36.9; O2SAT 96; BMI 41.8
--- NOTE | 2021-11-22 10:22 | CTR_ITS ---
PROCEDURE INFORMATION: Exam: CT Abdomen And Pelvis With Contrast Exam date and time: 11/22/2021 10:41 AM Age: 56 years old Clinical indication: Right lower quadrant abdominal pain with blood in stool. TECHNIQUE: Imaging protocol: Computed tomography of the abdomen and pelvis with contrast. Radiation optimization: All CT scans at this facility use at least one of these dose optimization techniques: automated exposure control; mA and/or kV adjustment per patient size (includes targeted exams where dose is matched to clinical indication); or iterative reconstruction. Contrast material: OMNI 350; Contrast volume: 100 ml; Contrast route: INTRAVENOUS (IV); COMPARISON: CT kidney stone [id number] 10/24/2021 1:52 PM RADIATION DOSE METRICS: Total DLP (mGy-cm): 1413.03 FINDINGS: Lungs: Solid pulmonary nodule in the right lower lobe that measures 5.4 mm. No pericardial effusion. No hiatal hernia. Liver: The liver is enlarged measuring 22.6 cm. Gallbladder and bile ducts: The gallbladder has been removed. Pancreas: The pancreas is unremarkable. Spleen: The spleen is unremarkable. Adrenal glands: Benign adrenal adenomas are identified bilaterally. The largest is situated on the right and measures 2.5 cm. Kidneys and ureters: A simple left renal cyst measures 5.1 cm. No hydronephrosis. Stomach and bowel: The stomach and small bowel are unremarkable. The colon is unremarkable. Appendix: The appendix is unremarkable. Intraperitoneal space: No free intraperitoneal air is seen. Vasculature: No abdominal aortic aneurysm. Lymph nodes: No retroperitoneal lymphadenopathy. Urinary bladder: The bladder wall is mildly thickened. Correlate with urinalysis to assess for cystitis. Reproductive: Status post hysterectomy. 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 No acute fracture is identified. Soft tissues: Small to moderate fat containing incisional hernias are noted in the infraumbilical region. Small fat containing umbilical hernia. CT/CT abdomen pelvis w con* [id number] IMPRESSION: 1. The bladder wall is mildly thickened. Correlate with urinalysis to assess for cystitis. 2. Small to moderate fat containing incisional hernias are noted in the infraumbilical region. 3. Solid pulmonary nodule measuring 5.4 mm. As per [employer]ischner Society 2017 guidelines for follow-up and management of pulmonary nodules: For patients at low risk (minimal or absent history of smoking and of other known risk factors), no routine follow-up. For patient at high risk (history of smoking or of other known risk factors), recommend optional CT at 12 months. 4. Hepatomegaly. COMMENTS: Consistent with the [employer]'s Incidental Findings Committee white paper (J Am Mary Radiol 2018): Any incidental renal lesion less than 1 cm or classified as too small to characterize, or any incidental cystic renal lesion characterized as simple-appearing, is likely benign. No follow-up imaging is recommended for these lesions per consensus recommendations based on imaging criteria.
--- NOTE | 2021-11-22 10:27 | W.ED.GENADLT ---
HPI - General Adult General: Chief complaint: General Medical Stated complaint: urinary pain Time Seen by Provider: 11/22/21 10:21 History of Present Illness: Patient is a 56-year-old female with a history of morbid obesity, renal colic, COPD, bipolar disorder, hypertension who presents emergency room for concerns of right-sided flank pain for the last 3 to 4 days. Patient tells me that she has had a history of renal colic and this feels like a. For the last 3 to 4 days, patient has had right-sided flank and back pain. Patient is chronically on tamsulosin hydrocortisone for her kidney stones. Patient has noted new onset of pain since 2 to 4 days ago. Patient denies any dysuria, hematuria or polyuria. Patient also reports hematochezia intermittently in the last 3 to 4 days. Patient has not or noted any hematochezia with stool output earlier today. Patient tells me that the stool appears greenish. Patient denies melena or anticoagulation use. Patient denies any excessive NSAIDs or aspirin use recently. Patient denies any tenesmus or dialrrhia Onset:3-4 days ago Duration:3-4 days Location:home Severity:moderate Associated symptoms: Deny chest pain, dyspnea, nausea, rash, palpitations or vomiting Review of Systems Const: Denies: fever(s) or chills Eyes: Denies: change in vision ENMT: Denies: mouth pain Card: Denies: chest pain or palpitations Resp: Denies: dyspnea or non-productive cough GI: Reports: abdominal pain (+R sided abd pain) and other (+hematochezia/intermittent bright blood per stool); Denies: nausea, vomiting or diarrhea : Denies: dysuria Musc: Denies: extremity pain Skin/Breast: Denies: rash or new lesions Neuro: Denies: weakness in extremities Psych: Reports: other (Normal mood) Anish/Lymph: Denies: easy bruising PFSH ED PFSH: Medical History Community acquired pneumonia History of bipolar disorder History of hypertension Surgical History History of cholecystectomy History of hysterectomy History of knee surgery History of tonsillectomy Family History Other Cancer Hypertension Social History Smoking and tobacco status: current every day smoker Alcohol intake: never History of recent travel: No Female Reproductive History: Spontaneous abortions: No Physical Exam Const: COMMON NORMALS: alert HENMT: COMMON NORMALS: atraumatic HEAD & SCALP: atraumatic MOUTH: moist mucous membranes not abnormal Eye: COMMON NORMALS: EOMs intact bilaterally and conjunctivae normal CONJUNCTIVA: Yes conjunctivae normal Neck/C-Spine: COMMON NORMALS: full ROM and supple Resp: COMMON NORMALS: normal respiratory effort and clear to auscultation bilaterally AUSCULTATION: clear to auscultation bilaterally Cardio: COMMON NORMALS: regular rate RATE: regular rate GI: COMMON NORMALS: Soft to palpation PALPATION: Yes Soft to palpation OTHER: +Moderate R flank ttp. NO guarding rebound, guarding, rigidity. +Moderate R CVA tenderness to percussion. Neg Diaz/Neg McBurney's point tenderness, no suprabupic tenderness to palpation. RECTAL: hemoocult positive stool, no gross melena, skin tags visualized on external exam, no hemorrhoid or fissure Extremity: COMMON NORMALS: full ROM Neuro: SENSORIUM/ORIENTATION: Yes alert MOTOR EXAM: No Abnormal motor strength present and Other motor observations present (no focal motor deficits) Psych: COMMON NORMALS: speech normal SPEECH: Yes normal speech MOOD & AFFECT: Yes euthymic mood Course Vital Signs: Vital signs: Vital Signs Temperature 98.5 F 11/22/21 10:13 Pulse Rate 89 11/22/21 15:15 Respiratory Rate 15 11/22/21 15:15 Blood Pressure 142/89 11/22/21 15:15 Pulse Oximetry 95 11/22/21 15:15 Oxygen Delivery Me thod 11/22/21 15:15 MDM - General Adult Medical Decision Making Patient is a 56-year-old female with a history of morbid obesity, renal colic, COPD, bipolar disorder, hypertension who presents emergency room for concerns of right-sided flank pain for the last 3 to 4 days. On exam, patient has mild right flank tenderness palpation. Patient has no signs of kidney stone. There is no signs of pyelonephritis on CT scan. Given findings of cystitis and right-sided flank pain, we will cover empirically with antibiotics today. Incidental findings of lung nodule discussed extensively with patient. Patient received a copy of the CT report with the documented findings. Patient is instructed to follow up urgently with specialists. Rx tylenol PRN abd pain, maalox/pepcid PRN dyspepsia, and zofran PRN nausea/vomiting, ciprofloxcin BID for UTI and early pyelonephritis Disposition: Discharge. Patient counseled regarding diagnostic impression, treatment plan. Patient given ED strict return precautions to return for continuation, worsening, or development of new symptoms. Instructed to f/u w/ PCP regarding symptoms today. Patient verbalized understanding. Lab Data : 11/22/21 11:05 11/22/21 11:05 Radiology Impressions Abdomen/Pelvis CT 11/22/21 10:22 IMPRESSION: 1. The bladder wall is mildly thickened. Correlate with urinalysis to assess for cystitis. 2. Small to moderate fat containing incisional hernias are noted in the infraumbilical region. 3. Solid pulmonary nodule measuring 5.4 mm. As per Fleischner Society 2017 guidelines for follow-up and management of pulmonary nodules: For patients at low risk (minimal or absent history of smoking and of other known risk factors), no routine follow-up. For patient at high risk (history of smoking or of other known risk factors), recommend optional CT at 12 months. 4. Hepatomegaly. COMMENTS: Consistent with the [employer]'s Incidental Findings Committee white paper (J Am Mary Radiol 2018): Any incidental renal lesion less than 1 cm or classified as too small to characterize, or any incidental cystic renal lesion characterized as simple-appearing, is likely benign. No follow-up imaging is recommended for these lesions per consensus recommendations based on imaging criteria. Laboratory Results WBC 10.6 10^3/uL (4.0-10.0) H 11/22/21 11:05 RBC 4.59 10^6/uL (4.1-5.3) 11/22/21 11:05 Hgb 13.6 g/dL (11.5-15.3) 11/22/21 11:05 Hct 44.7 % (37.0-47.0) 11/22/21 11:05 MCV 97.4 fl (81-99) 11/22/21 11:05 MCH 29.6 pg (28.0-34.0) 11/22/21 11:05 MCHC 30.4 g/dL (30.0-36.0) 11/22/21 11:05 RDW 13.1 % (12.1-15.1) 11/22/21 11:05 Plt Count 213 10^3/cmm (130-400) 11/22/21 11:05 MPV 10.2 fL (7.4-10.4) 11/22/21 11:05 Neut % (Auto) 49.8 % 11/22/21 11:05 Lymph % (Auto) 37.3 % 11/22/21 11:05 [place] % (Auto) 10.0 % 11/22/21 11:05 Eos % (Auto) 2.0 % 11/22/21 11:05 Baso % (Auto) 0.5 % 11/22/21 11:05 Neut # (Auto) 5.31 10^3/uL (1.8-7.7) 11/22/21 11:05 Lymph # (Auto) 4.0 10^3/uL (0.8-4.8) 11/22/21 11:05 [place] # (Auto) 1.1 10^3/uL (0.2-0.9) H 11/22/21 11:05 Eos # (Auto) 0.2 10^3/uL (0.0-0.8) 11/22/21 11:05 Baso # (Auto) 0.1 10^3/uL (0.0-0.1) 11/22/21 11:05 Nucleated RBC % (auto) 0 % 11/22/21 11:05 Nucleated RBCs # 0.0 /100WBC 11/22/21 11:05 Sodium 141 mmol/L (136-145) 11/22/21 11:05 Potassium 4.6 mmol/L (3.5-5.1) 11/22/21 11:05 Chloride 103 mmol/L (98-107) 11/22/21 11:05 Carbon Dioxide 31 mmol/L (22-29) H 11/22/21 11:05 Anion Gap 11.6 (5-19) 11/22/21 11:05 BUN 8 mg/dL (6-20) 11/22/21 11:05 Creatinine 0.4 mg/dL (0.5-0.9) L 11/22/21 11:05 GFR Calculation 164.5 mL/min (90-130) H 11/22/21 11:05 Glucose 100 mg/dL (65-115) 11/22/21 11:05 Calculated Osmolality 290 mOsm/kg (285-295) 11/22/21 11:05 Calcium 9.4 mg/dL (8.5-10.5) 11/22/21 11:05 Total Bilirubin 0.2 mg/dL (0.15-1.2) 11/22/21 11:05 AST 19 U/L (0-32) 11/22/21 11:05 ALT 11 U/L (0-33) 11/22/21 11:05 Alkaline Phosphatase 74 U/L (35-105) 11/22/21 11:05 Total Protein 7.1 g/dL (6.6-8.7) 11/22/21 11:05 Albumin 3.7 g/dL (3.5-5.2) 11/22/21 11:05 Globulin 3.4 g/dL (1.3-4.6) 11/22/21 11:05 Lipase 30 U/L (13-60) 11/22/21 11:05 Urine Color Yellow (Yellow) 11/22/21 11:05 Urine Appearance Clear (CLEAR) 11/22/21 11:05 Urine pH 5 (5-7) 11/22/21 11:05 Ur Specific [place] 1.010 (1.005-1.030) 11/22/21 11:05 Urine Protein Trace (Negative) 11/22/21 11:05 Urine Glucose (UA) Norm (Normal) 11/22/21 11:05 Urine Ketones 1+ (Negative) H 11/22/21 11:05 Urine Blood Neg (Negative) 11/22/21 11:05 Urine Nitrate Negative (Negative) 11/22/21 11:05 Urine Bilirubin Neg (Negative) 11/22/21 11:05 Urine Urobilinogen Norm mg/dL (Negative) 11/22/21 11:05 Ur Leukocyte Esterase Trace (Negative) H 11/22/21 11:05 Urine RBC None /hpf (0-2) 11/22/21 11:05 Urine WBC 0-4 /hpf (0-5) H 11/22/21 11:05 Ur Squamous Epith Cells 10-15 /hpf (0-5) H 11/22/21 11:05 Amorphous Sediment Not Reportable 11/22/21 11:05 Urine Bacteria 1+ /hpf (NONE) H 11/22/21 11:05 Imaging Data Other Imaging: [facility] [address] [place] [address] CT Scan Report Signed Patient: Cyndi Baca Unit #: [id number] : 1965 Age/Sex: 56 / F ADM Date: 11/22/21 Loc: ER Room/Bed: Attending Dr: Ordering Provider/Ordering MD: Caden Lin MD Date of Service: 11/22/21 Procedure(s): CT abdomen pelvis w con* [id number] Accession Number(s): [id number] Report Number: [id number] PROCEDURE INFORMATION: Exam: CT Abdomen And Pelvis With Contrast Exam date and time: 11/22/2021 10:41 AM Age: 56 years old Clinical indication: Right lower quadrant abdominal pain with blood in stool. TECHNIQUE: Imaging protocol: Computed tomography of the abdomen and pelvis with contrast. Radiation optimization: All CT scans at this facility use at least one of these dose optimization techniques: automated exposure control; mA and/or kV adjustment per patient size (includes targeted exams where dose is matched to clinical indication); or iterative reconstruction. Contrast material: OMNI 350; Contrast volume: 100 ml; Contrast route: INTRAVENOUS (IV);? COMPARISON: CT kidney stone [id number] 10/24/2021 1:52 PM RADIATION DOSE METRICS: Total DLP (mGy-cm): 1413.03 FINDINGS: Lungs: Solid pulmonary nodule in the right lower lobe that measures 5.4 mm. No pericardial effusion. No hiatal hernia. Liver: The liver is enlarged measuring 22.6 cm. Gallbladder and bile ducts: The gallbladder has been removed. Pancreas: The pancreas is unremarkable. Spleen: The spleen is unremarkable. Adrenal glands: Benign adrenal adenomas are identified bilaterally. The largest is situated on the right and measures 2.5 cm. Kidneys and ureters: A simple left renal cyst measures 5.1 cm. No hydronephrosis. Stomach and bowel: The stomach and small bowel are unremarkable. The colon is unremarkable. Appendix: The appendix is unremarkable. Intraperitoneal space: No free intraperitoneal air is seen. Vasculature: No abdominal aortic aneurysm. Lymph nodes: No retroperitoneal lymphadenopathy. Urinary bladder: The bladder wall is mildly thickened. Correlate with urinalysis to assess for cystitis. Reproductive: Status post hysterectomy. 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 No acute fracture is identified. Soft tissues: Small to moderate fat containing incisional hernias are noted in the infraumbilical region. Small fat containing umbilical hernia. CT/CT abdomen pelvis w con* [id number] IMPRESSION: 1. The bladder wall is mildly thickened. Correlate with urinalysis to assess for cystitis. 2. Small to moderate fat containing incisional hernias are noted in the infraumbilical region. 3. Solid pulmonary nodule measuring 5.4 mm. As per Fleischner Society 2017 guidelines for follow-up and management of pulmonary nodules: For patients at low risk (minimal or absent history of smoking and of other known risk factors), no routine follow-up. For patient at high risk (history of smoking or of other known risk factors), recommend optional CT at 12 months. 4. Hepatomegaly. ? COMMENTS: Consistent with the [employer]'s Incidental Findings Committee white paper (J Am Mary Radiol 2018): Any incidental renal lesion less than 1 cm or classified as too small to characterize, or any incidental cystic renal lesion characterized as simple-appearing, is likely benign. No follow-up imaging is recommended for these lesions per consensus recommendations based on imaging criteria. ? Dictated By: Vinicio Toledo Signed By: Vinicio Toledo Signed Date/Time: 11/22/21 1124 DD/ 1041 Discharge Plan Discharge Patient Disposition: Home Clinical Impression: UTI (urinary tract infection), Flank pain Condition: Stable Prescriptions: New famotidine [Pepcid] 20 mg tablet 20 mg PO BID PRN (Reason: abdominal pain) 10 Days Qty: 20 0RF Maalox Advanced 1,000-60 mg tablet,chewable 1 tab PO TID PRN (Reason: abdominal pain) 7 Days Qty: 21 0RF ciprofloxacin HCl 500 mg tablet 500 mg PO BID 7 Days Qty: 14 0RF No Action (DME) manual wheelchair See Rx Instructions .Route .MEDSUPPLY Qty: 1 0RF Rx Instructions: As directed gabapentin 600 mg tablet 300 mg PO BID Qty: 30 2RF hydrocodone-acetaminophen 5-325 mg tablet 1 tab PO Q8H PRN (Reason: pain) 7 Days Qty: 20 0RF aspirin 81 mg Tablet,Chewable 81 mg PO DAILY albuterol sulfate 90 mcg/actuation HFA aerosol inhaler 2 inh INHALATION Q4H PRN (Reason: shortness of breath or wheezing) Qty: 18 0RF fluticasone propion-salmeterol [Advair Diskus] 250-50 mcg/dose blister with device 1 inh inhalation BID Qty: 60 1RF ondansetron HCl 4 mg tablet 4 mg PO Q6H PRN (Reason: Nausea And Vomiting) amitriptyline 25 mg tablet 25 mg PO BEDTIME tamsulosin 0.4 mg capsule 0.4 mg PO DAILY Zithromax Z-Bao 250 mg tablet See Rx Instructions .ROUTE .COMPLEX Qty: 6 0RF Rx Instructions: For 250 mg dose pack: take 500 mg today (day 1), then 250 mg for 4 days (days 2-5) prednisone 50 mg tablet 50 mg PO DAILY 7 Days Qty: 7 0RF acetaminophen [Tylenol] 325 mg Capsule 325 mg PO QID PRN (Reason: Pain) Discharge Orders: Discharge ED (Routine); Ordered 11/22/21 Ordered By: Caden Lin Referrals: Benson Deleon DO [Primary Care Provider] - Discharge Diet: Advance as tolerated Discharge Activity: Increase activity as tolerated Patient Instructions: Dysuria (ED) Activity Restrictions/Additional Instructions: Come back if you have any new or concerning issues. Please come back if you have any worsening abdominal pain, fever or chills, nausea or vomiting, diarrhea, blood in the stool, inability hold down liquid or solids, or any new concerning complaints. Please take your antibiotics as instructed. Watch out for signs of skin changes/redness, mouth redeness or swelling, nausea/vomiting, diarrhea, blood in the urine or any new or concering complaints. Coding Level of Care Code ED Plastic Surgery Nurse for Abdirahman Fwdiana Exam Comprehensive
[2021-11-22] MEDS: iohexol 350 mg/mL 100 mL Btl IV (10:55)
[2021-11-22] MEDS: sodium chloride 0.9% 1,000 ML 999 ML IV (11:15)
[2021-11-22 11:19] LABS: Basophils # 0.1 10^3/uL (0.0-0.1); Basophils % 0.5 %; Eosinophils # 0.2 10^3/uL (0.0-0.8); Hematocrit 44.7 % (37.0-47.0); Hemoglobin 13.6 g/dL (11.5-15.3); Lymphocytes % 37.3 %; Mean Corpuscular HGB Conc 30.4 g/dL (30.0-36.0); Mean Corpuscular Hemoglobin 29.6 pg (28.0-34.0); Mean Corpuscular Volume 97.4 fl (81-99); Mean Platelet Volume 10.2 fL (7.4-10.4); Monocytes # 1.1 10^3/uL (0.2-0.9); Neutrophils # 5.31 10^3/uL (1.8-7.7); Neutrophils % 49.8 %; Nucleated Red Blood Cells % 0 %; Platelet Count 213 10^3/cmm (130-400); Red Blood Count 4.59 10^6/uL (4.1-5.3); Red Cell Distribution Width 13.1 % (12.1-15.1); White Blood Count 10.6 10^3/uL (4.0-10.0)
[2021-11-22 11:25] LABS: Add Urine Microscopic? YES; Bilirubin Urine Neg (Negative); Blood Urine Neg (Negative); Glucose Urine UA Norm (Normal); Ketones Urine 1+ (Negative); Leukocyte Esterase Urine Trace (Negative); Nitrate Urine Negative (Negative); Protein Urine Trace (Negative); Urine Appearance Clear (CLEAR); Urine Color Yellow (Yellow); Urobilinogen Urine Norm (Negative); pH Urine 5 (5-7)
[2021-11-22 11:33] VITALS: RESP 17; O2SAT 95
[2021-11-22] MEDS: morphine 4 mg/mL SDV 1 mL IVP (11:33)
[2021-11-22 11:34] LABS: Add Urine Culture? No; Bacteria Urine 1+ /hpf; WBC Urine 0-4 /hpf (0-5)
[2021-11-22 11:41] LABS: Alanine Aminotransferase 11 U/L (0-33); Albumin Level 3.7 g/dL (3.5-5.2); Alkaline Phosphatase 74 U/L (35-105); Anion Gap 11.6 (5-19); Aspartate Amino Transferase 19 U/L (0-32); Blood Urea Nitrogen 8 mg/dL (6-20); Calcium 9.4 mg/dL (8.5-10.5); Carbon Dioxide 31 mmol/L (22-29); Chloride 103 mmol/L (98-107); Globulin 3.4 g/dL (1.3-4.6); Glomerular Filtration Rate 164.5 mL/min (90-130); Glucose 100 mg/dL (65-115); Lipase 30 U/L (13-60); Osmolality Calculated 290 mOsm/kg (285-295); Potassium 4.6 mmol/L (3.5-5.1); Sodium 141 mmol/L (136-145); Total Bilirubin 0.2 mg/dL (0.15-1.2); Total Protein 7.1 g/dL (6.6-8.7)
[2021-11-22] MEDS: ondansetron 2 mg/ML SDV 2 mL 4 MG IVP (11:48)
[2021-11-22 13:11] VITALS: RESP 16; O2SAT 95
[2021-11-22] MEDS: HYDROmorphone 1 mg/mL INJ 1 mL 0.5 MG IVP (13:11)
[2021-11-22] MEDS: ciprofloxacin 500 mg Tablet PO (13:11)
[2021-11-22 15:15] VITALS: BP 142/89; PULSE 89; RESP 15; O2SAT 95
[2021-11-22] MEDS: metoclopramide 5 mg/mL SDV 2 mL IVP (15:15)
== END 2021-11-22 15:17 | disposition home or self-care (01) ==
PROVIDERS: Emergency Provider Emergency Medicine; PCP Family Medicine
DX: N39.0 Urinary tract infection, site not specified (principal); Z79.82 Long term (current) use of aspirin; F17.210 Nicotine dependence, cigarettes, uncomplicated; I10 Essential (primary) hypertension
CPT/HCPCS: 74177; 80053; 81001; 83690; 85025; 96361; 96374; 96375; 99285; J1170; J2270; J2405; J2765; J7030; Q9967

== ENCOUNTER 2021-11-27 09:58 | Emergency (ER) | payer MEDICAID, SELFPAY ==
[2021-11-27 10:06] VITALS: BP 135/73; PULSE 106; RESP 18; TEMP 36.9; O2SAT 98; BMI 44.6
[2021-11-27 10:22] VITALS: BP 133/57; PULSE 103; O2SAT 93
[2021-11-27 10:39] LABS: Basophils # 0.1 10^3/uL (0.0-0.1); Basophils % 0.6 %; Eosinophils # 0.2 10^3/uL (0.0-0.8); Eosinophils % 1.8 %; Hematocrit 47.5 % (37.0-47.0); Hemoglobin 15.3 g/dL (11.5-15.3); Lymphocytes # 4.2 10^3/uL (0.8-4.8); Lymphocytes % 34.6 %; Mean Corpuscular HGB Conc 32.2 g/dL (30.0-36.0); Mean Corpuscular Hemoglobin 30.1 pg (28.0-34.0); Mean Corpuscular Volume 93.3 fl (81-99); Mean Platelet Volume 10.5 fL (7.4-10.4); Monocytes # 1.1 10^3/uL (0.2-0.9); Monocytes % 8.8 %; Neutrophils # 6.53 10^3/uL (1.8-7.7); Neutrophils % 53.5 %; Nucleated Red Blood Cells % 0 %; Platelet Count 225 10^3/cmm (130-400); Red Blood Count 5.09 10^6/uL (4.1-5.3); Red Cell Distribution Width 13.1 % (12.1-15.1); White Blood Count 12.2 10^3/uL (4.0-10.0)
--- NOTE | 2021-11-27 10:41 | CT_ITS ---
WS: [id number] CT ABDOMEN AND PELVIS WITH CONTRAST HISTORY: Abdominal Pain, Diffuse TECHNIQUE: Imaging performed of the abdomen and pelvis with IV contrast. Single phase imaging of the abdomen. Coronal and sagittal reformats are submitted. All CT scans at [facility] use at [address] one of these dose optimization techniques: automated exposure control; mA and/or kV adjustment per patient size (includes targeted exams where dose is matched to clinical indication); or iterative re construction. IV CONTRAST: Omnipaque 350; 100 mL IV. Oral contrast: No DLP: 1380.23 mGy.cm COMPARISON: 11/22/2021 Lower thorax: Noncalcified 5 mm nodule at the RIGHT lung base. Heart is normal size. No hiatal hernia . Liver/biliary system: Normal size with no intrahepatic dilatation. Gallbladder: Status post cholecystectomy. Pancreas: Normal size pancreas and pancreatic duct. No adjacent inflammation. Spleen: Normal size spleen. No mass or infarct. Adrenal glands: Bilateral adrenal nodules. The largest on the RIGHT measures 2.2 x 1.4 cm. Noted to b e adenoma on a prior noncontrast study from 2013. Very tiny nodule in the LEFT adrenal gland measures 1.3 x 0.8 cm. Right kidney: Normal. Left kidney: Normal size kidney. Cyst in the upper pole renal pelvis. Cyst measures 5.2 x 4.9 cm. Sli ght mass effect upon the calyces of the upper pole with no high-grade obstruction. Aorta: Normal. Lymphadenopathy: None. Free fluid: None. GI tract: Nondistended stomach. No small bowel obstruction. There is mild distention of the terminal ileum which was not present on the prior examination. No adjacent inflammation. The appendix is jaime l. Abdominal wall: Several ventral abdominal wall hernias containing fat only. Beginning at the level o f the umbilicus and inferior to the umbilical region there are fat-containing hernias. Pelvis: Prior hysterectomy. Minimally distended urinary bladder. No free fluid or adenopathy. Bones: Mild narrowing of the hip joints and subchondral cysts. CT/CT abdomen pelvis w con* [id number] IMPRESSION: 1. No acute abdominal or pelvic abnormalities. 2. There is new very mild soft tissue distention of the terminal ileum. Will p robably resolve with peristalsis. No adjacent inflammation. No evidence for red endicitis. 3. Umbilical and infraumbilical abdominal wall fat-containing hernias. 4. Stable bilateral adrenal nodules. 5. Prior cholecystectomy and hysterectomy. 6. LEFT parapelvic cyst.
--- NOTE | 2021-11-27 10:43 | W.ED.ABDPA2 ---
HPI - Abdominal Pain General: Chief Complaint: Abdominal Pain Stated Complaint: ABD Pain Time Seen by Provider: 11/27/21 10:01 History of Present Illness: 56-year-old female presenting today with abdominal pain. Patient notes acute on chronic abdominal pain. Patient notes she has diffuse abdominal pain today. Notes abdominal swelling. Was seen in this ED recently for the same. And was started on ciprofloxacin for suspected UTI. Notes that she has a history of known kidney stones for which she sees her primary care doctor. Patient is currently on hydrocodone for pain control. She notes this appears to not be improving her pain symptoms. Review of Systems General: Reports: 10 or more systems reviewed and unremarkable except in HPI and below PFSH ED PFSH: Medical History Community acquired pneumonia History of bipolar disorder History of hypertension Surgical History History of cholecystectomy History of hysterectomy History of knee surgery History of tonsillectomy Family History Other Cancer Hypertension Social History Smoking and tobacco status: current every day smoker Alcohol intake: never History of recent travel: No Female Reproductive History: Spontaneous abortions: No Physical Exam Const: COMMON NORMALS: no acute distress, patient oriented x3 and alert GENERAL APPEARANCE: cooperative ORIENTATION/CONSCIOUSNESS: Yes awake, Yes oriented to person, Yes oriented to place and Yes oriented to time HENMT: COMMON NORMALS: normocephalic, atraumatic, external ears normal, Normal external nose present and moist oral mucous membranes HEAD & SCALP: normal to inspection, normocephalic and atraumatic NOSE: Normal external nose present GENERAL EAR: hearing grossly impaired EXTERNAL EAR: Yes external ears normal Eye: COMMON NORMALS: Equal, round and reactive pupils present, EOMs intact bilaterally, conjunctivae normal and no scleral icterus GENERAL EYE: appearance normal, both eyes and all related structures EYELID: eyelids normal CONJUNCTIVA: Yes conjunctivae normal SCLERA: sclerae normal PUPIL: Yes Equal, round and reactive pupils present Neck/C-Spine: COMMON NORMALS: full ROM, supple and no JVD GENERAL: Yes normal visual inspection Lymph: LYMPHATIC: no lymphadenopathy noted and no lymphedema noted Chest: COMMONS NORMALS: normal inspection of the chest Resp: COMMON NORMALS: normal respiratory effort, No retractions and No use of accessory muscles Cardio: COMMON NORMALS: no JVD, regular rate and regular rhythm RATE: regular rate RHYTHM: regular rhythm GI: COMMON NORMALS: Normal to inspection, nondistended, normoactive bowel sounds present : COMMON NORMALS: Yes no CVA tenderness BLADDER/KIDNEY EXAM: Yes no CVA tenderness Back/Pelvis: COMMON NORMALS: no CVA tenderness and thoracic and lumbar spine normal to inspection Extremity: COMMON NORMALS: normal to inspection, full ROM and capillary refill normal GENERAL: Yes normal exam except as noted Neuro: COMMON NORMALS: patient oriented x3, CN's II-XII intact bilaterally, moves all extremities, no focal motor deficits, no sensory deficits noted and gait normal SENSORIUM/ORIENTATION: Yes alert, Yes oriented to person, Yes oriented to place and Yes oriented to time Psych: COMMON NORMALS: mental status grossly normal, Normal thought process present, cooperative and normal affect THOUGHT PROCESS: Normal thought process present Skin: COMMON NORMALS: no rashes or lesions noted and no wounds GENERAL SKIN EXAM: no rashes or lesions noted Course Vital Signs: Vital signs: Vital Signs Temperature 98.5 F 11/27/21 10:06 Pulse Rate 103 H 11/27/21 10:22 Respiratory Rate 18 11/27/21 10:56 Blood Pressure 133/57 11/27/21 10:22 Pulse Oximetry 93 11/27/21 10:56 Oxygen Delivery Me thod 11/27/21 10:22 Oxygen Flow Rate 2 11/27/21 10:22 MDM - Abdominal Pain Medical Decision Making 56-year-old female presenting today with acute on chronic lower abdominal pain. CBC with slight leukocytosis. CMP is unremarkable. CT abdomen pelvis without acute abnormality. Patient on ciprofloxacin for prior UTI. No evidence of nephrolithiasis at this time. Recommended routine follow-up with her softball umpire, general surgeon, and urologist for which she is already referred. Patient was given strict return precautions and recommended routine outpatient follow-up. Lab Data : 11/27/21 10:26 11/27/21 10:26 Labs/Radiology: Radiology Impressions Abdomen/Pelvis CT 11/27/21 10:41 IMPRESSION: 1. No acute abdominal or pelvic abnormalities. 2. There is new very mild soft tissue distention of the terminal ileum. Will probably resolve with peristalsis. No adjacent inflammation. No evidence for appendicitis. 3. Umbilical and infraumbilical abdominal wall fat-containing hernias. 4. Stable bilateral adrenal nodules. 5. Prior cholecystectomy and hysterectomy. 6. LEFT parapelvic cyst. Laboratory Results WBC 12.2 10^3/uL (4.0-10.0) H 11/27/21 10: RBC 5.09 10^6/uL (4.1-5.3) 11/27/21 10: Hgb 15.3 g/dL (11.5-15.3) 11/27/21 10: Hct 47.5 % (37.0-47.0) H 11/27/21 10: MCV 93.3 fl (81-99) 11/27/21 10: MCH 30.1 pg (28.0-34.0) 11/27/21 10: MCHC 32.2 g/dL (30.0-36.0) 11/27/21 10: RDW 13.1 % (12.1-15.1) 11/27/21 10: Plt Count 225 10^3/cmm (130-400) 11/27/21 10: MPV 10.5 fL (7.4-10.4) H 11/27/21 10: Neut % (Auto) 53.5 % 11/27/21 10: Lymph % (Auto) 34.6 % 11/27/21 10: [place] % (Auto) 8.8 % 11/27/21 10: Eos % (Auto) 1.8 % 11/27/21 10:26 Baso % (Auto) 0.6 % 11/27/21 10: Neut # (Auto) 6.53 10^3/uL (1.8-7.7) 11/27/21 10: Lymph # (Auto) 4.2 10^3/uL (0.8-4.8) 11/27/21 10: [place] # (Auto) 1.1 10^3/uL (0.2-0.9) H 11/27/21 10: Eos # (Auto) 0.2 10^3/uL (0.0-0.8) 11/27/21 10:26 Baso # (Auto) 0.1 10^3/uL (0.0-0.1) 11/27/21 10: Nucleated RBC % (auto) 0 % 11/27/21 10: Nucleated RBCs # 0.0 /100WBC 11/27/21 10:26 Sodium 137 mmol/L (136-145) 11/27/21 10:26 Potassium 4.8 mmol/L (3.5-5.1) 11/27/21 10:26 Chloride 98 mmol/L (98-107) 11/27/21 10:26 Carbon Dioxide 26 mmol/L (22-29) 11/27/21 10:26 Anion Gap 17.8 (5-19) 11/27/21 10: BUN 11 mg/dL (6-20) 11/27/21 10:26 Creatinine 0.5 mg/dL (0.5-0.9) 11/27/21 10: GFR Calculation 127.2 mL/min (90-130) 11/27/21 10:26 Glucose 122 mg/dL (65-115) H 11/27/21 10:26 Calculated Osmolality 285 mOsm/kg (285-295) 11/27/21 10: Lactate 2.1 mmol/L (0.5-2.2) 11/27/21 10: Calcium 10.0 mg/dL (8.5-10.5) 11/27/21 10: Total Bilirubin 0.2 mg/dL (0.15-1.2) 11/27/21 10:26 AST 23 U/L (0-32) 11/27/21 10:26 ALT 14 U/L (0-33) 11/27/21 10:26 Alkaline Phosphatase 83 U/L (35-105) 11/27/21 10: Total Protein 7.8 g/dL (6.6-8.7) 11/27/21 10: Albumin 4.1 g/dL (3.5-5.2) 11/27/21 10: Globulin 3.7 g/dL (1.3-4.6) 11/27/21 10:26 Lipase 27 U/L (13-60) 11/27/21 10:26 Discharge Plan Discharge Patient Disposition: Home Clinical Impression: Abdominal pain Condition: Stable Prescriptions: No Action (DME) manual wheelchair See Rx Instructions .Route .MEDSUPPLY Qty: 1 0RF Rx Instructions: As directed gabapentin 600 mg tablet 300 mg PO BID Qty: 30 2RF hydrocodone-acetaminophen 5-325 mg tablet 1 tab PO Q8H PRN (Reason: pain) 7 Days Qty: 20 0RF aspirin 81 mg Tablet,Chewable 81 mg PO DAILY albuterol sulfate 90 mcg/actuation HFA aerosol inhaler 2 inh INHALATION Q4H PRN (Reason: shortness of breath or wheezing) Qty: 18 0RF fluticasone propion-salmeterol [Advair Diskus] 250-50 mcg/dose blister with device 1 inh inhalation BID Qty: 60 1RF famotidine [Pepcid] 20 mg tablet 20 mg PO BID PRN (Reason: abdominal pain) 10 Days Qty: 20 0RF Maalox Advanced 1,000-60 mg tablet,chewable 1 tab PO TID PRN (Reason: abdominal pain) 7 Days Qty: 21 0RF ciprofloxacin HCl 500 mg tablet 500 mg PO BID 7 Days Qty: 14 0RF ondansetron HCl 4 mg tablet 4 mg PO Q6H PRN (Reason: Nausea And Vomiting) amitriptyline 25 mg tablet 25 mg PO BEDTIME tamsulosin 0.4 mg capsule 0.4 mg PO DAILY acetaminophen [Tylenol] 325 mg Capsule 325 mg PO QID PRN (Reason: Pain) Discharge Orders: Discharge ED (Routine); Ordered 11/27/21 Ordered By: Saurav Malave Referrals: Benson Deleon DO [Primary Care Provider] - Patient Instructions: Abdominal Pain (ED), Opioid Safety, Pain Management Coding Level of Care Code ED Collections Manager for Chg Fwd Exam Comprehensive
[2021-11-27 10:54] LABS: Chloride 98 mmol/L (98-107); Potassium 4.8 mmol/L (3.5-5.1); Sodium 137 mmol/L (136-145)
[2021-11-27] MEDS: haloperidol inj 5 mg/mL INJ 1 mL 2 MG IVP (10:54)
[2021-11-27 10:56] VITALS: RESP 18; O2SAT 93
[2021-11-27] MEDS: oxyCODONE 5 mg IR Tab/Cap PO (10:56)
[2021-11-27 10:59] LABS: Lactate (Lactic Acid level) 2.1 mmol/L (0.5-2.2)
[2021-11-27 11:12] LABS: Alanine Aminotransferase 14 U/L (0-33); Albumin Level 4.1 g/dL (3.5-5.2); Alkaline Phosphatase 83 U/L (35-105); Anion Gap 17.8 (5-19); Aspartate Amino Transferase 23 U/L (0-32); Blood Urea Nitrogen 11 mg/dL (6-20); Carbon Dioxide 26 mmol/L (22-29); Globulin 3.7 g/dL (1.3-4.6); Glomerular Filtration Rate 127.2 mL/min (90-130); Glucose 122 mg/dL (65-115); Lipase 27 U/L (13-60); Osmolality Calculated 285 mOsm/kg (285-295); Total Bilirubin 0.2 mg/dL (0.15-1.2); Total Protein 7.8 g/dL (6.6-8.7)
[2021-11-27] MEDS: iohexol 350 mg/mL 100 mL Btl IV (11:12)
[2021-11-27] MEDS: acetaminophen 325 mg Tablet 975 MG PO (11:52)
[2021-11-27] MEDS: alum-mag-hydroxide-sime 30 mL UDC PO (12:06)
--- NOTE | 2021-11-27 12:48 | XR_ITS ---
WS: [id number] Portable AP upright chest, 11/27/2021 Clinical Data: SOB Comparison: Portable chest, 10/24/2021. Findings: No nodules, masses or effusions are seen. The heart is normal. The pulmonary vascularity is not increased. No pneumonia or pneumothorax is seen. The aortic arch and descending thoracic aorta s how mild tortuosity. The diaphragms are flattened. XR/XR chest 1V portable [id number] Impression: Atherosclerosis and hyperinflation.
[2021-11-27 13:00] VITALS: O2SAT 87
[2021-11-27] MEDS: predniSONE 20 mg Tablet 60 MG PO (14:12)
[2021-11-27 14:13] VITALS: BP 147/91; O2SAT 98
--- NOTE | 2021-12-11 10:44 | PC.SOCIAL ---
[employer] completed for Oxygen. Pre-Cert number assigned: [id number] Faxed to HOME.
== END 2021-11-27 16:38 | disposition home or self-care (01) ==
PROVIDERS: Emergency Provider Emergency Medicine; PCP Family Medicine
DX: R10.9 Unspecified abdominal pain (principal); Z79.82 Long term (current) use of aspirin; I10 Essential (primary) hypertension; F17.210 Nicotine dependence, cigarettes, uncomplicated
CPT/HCPCS: 71045; 74177; 80053; 83605; 83690; 85025; 99285; J1630; J7512; Q9967

== ENCOUNTER → 2021-12-01 10:23 | Outpatient (BNVA) | payer MEDICAID, SELFPAY | PROVIDERS: PCP Family Medicine; Visit Provider Surgery | DX: K92.1 Melena (principal); K62.89 Other specified diseases of anus and rectum; Z80.0 Family history of malignant neoplasm of digestive organs; K59.00 Constipation, unspecified | CPT/HCPCS: 99203 ==

== ENCOUNTER 2021-12-07 07:40 | Outpatient (CLI) | payer MEDICAID, SELFPAY | END 2021-12-07 07:41 | disposition home or self-care (01) | LOC: RAD 07:41 | PROVIDERS: PCP Family Medicine; Visit Provider Nurse Practitioner Family | DX: N20.0 Calculus of kidney (principal); N30.90 Cystitis, unspecified without hematuria | CPT/HCPCS: 81003; 87086; 99203 ==

== ENCOUNTER 2021-12-09 05:55 | Day surgery (SDC) | payer MEDICAID, SELFPAY ==
[2021-12-07 08:10] VITALS: BMI 31.4
[2021-12-09 06:14] VITALS: BP 160/84; PULSE 85; RESP 18; TEMP 36.1; O2SAT 98
[2021-12-09] MEDS: sodium chloride 0.9% 1,000 ML 30 ML IV (06:27)
--- NOTE | 2021-12-09 07:28 | W.PM.OPSUD ---
Surgery/Procedure H&P Update DATE OF PROCEDURE: December 09, 2021 DATE H&P PERFORMED: 12/01/21 PLANNED PROCEDURE: Operation Date: 12/09/21 07:30 Proposed Procedures p Colonoscopy 06620,K92.1,K62.89,Z80.0,K59(Not Applicable) - Harry Roa DO
--- NOTE | 2021-12-09 07:38 | ANES.PREANE2 ---
Pre-Anesthetic Assessment Height/Weight: Height 1.8 m Weight 102.058 kg Temp Pulse Resp BP Pulse Ox O2 Del Method O2 Flow Rate 97.0 F L 85 18 160/84 98 3 12/09/21 06:14 12/09/21 06:14 12/09/21 06:14 12/09/21 06:14 12/09/21 06:14 12/09/21 06:14 12/09/21 06:14 Operation Date: 12/09/21 07:30 Proposed Procedures p Colonoscopy [id number],K92.1,K62.89,Z80.0,K59(Not Applicable) - Harry Roa DO Familial anesthetic complications: NONE Was Beta Bo taken within 24 hours: N/A Was Clonidine taken within 24 hours: N/A Last intake: Intake Last Liquid Date 12/08/21 Last Liquid Time 23:00 Last Solid Date 12/07/21 Social Tobacco and No alcohol VAPE Exam alert, oriented x 3, clear to auscultation bilaterally and regular rate & rhythm Airway Submandibular: within normal limits Cervical ROM: within normal limits Mallampati: Class III Dentition: false History/ROS No significant history except as noted and No significant complaints Pulmonary Chronic Obstructive Pulmonary Disease SOB W/ ACTIVITY CV/HEM Hypertension None reported Hepatic None reported GI Gastroesophageal Reflux Disease Metabolic None reported Musc/skel None reported Neuropsych None reported Anesthetic Plan ASA status: 3 Anesthesia: Anesthesia Evaluation Risk of > 500 ml blood loss (7ml/kg in children): No Medications/Allergies Home Medications Medication Instructions Recorded Confirmed Last Taken Type aspirin 81 mg chewable tablet 81 mg PO DAILY 09/19/19 12/09/21 12/07/21 History manual wheelchair #1 ea 10/03/19 12/07/21 Unknown Rx albuterol sulfate 90 mcg/actuation 2 inh inhalation Q4H PRN shortness 10/24/21 12/09/21 12/07/21 Rx aerosol inhaler of breath or wheezing #18 grams fluticasone 250 mcg-salmeterol 50 1 inh inhalation BID #60 ea 10/24/21 12/09/21 12/08/21 Rx mcg/dose blistr powdr for inhalation (Advair Diskus) gabapentin 600 mg tablet 300 mg PO BID #30 tabs 10/29/21 12/09/21 12/08/21 Rx hydrocodone 5 mg-acetaminophen 325 1 tab PO Q8H PRN pain 7 days #20 11/26/21 12/09/21 12/06/21 Rx mg tablet tabs azithromycin 250 mg tablet See Rx Instructions PO .COMPLEX #6 11/27/21 12/09/21 12/07/21 Rx (Zithromax Z-Bao) tabs ondansetron HCl 4 mg tablet 4 mg PO Q6H PRN Nausea And Vomiting 11/27/21 12/09/21 12/08/21 History tamsulosin 0.4 mg capsule 0.4 mg PO DAILY 11/27/21 12/09/21 12/07/21 History hydrocortisone 2.5 % topical cream 1 applic PA QID itching 20 days 12/01/21 12/09/21 Unknown Rx with perineal applicator #30 grams (Anusol-HC) ciprofloxacin HCl 500 mg tablet 500 mg PO BID #28 tabs 12/07/21 12/09/21 12/07/21 Rx amitriptyline 25 mg tablet 25 mg PO BEDTIME #90 tabs 12/09/21 12/08/21 Rx Allergies Allergy/AdvReac Type Severity Reaction Status Date / Time ketorolac [From Toradol] Allergy ALGY-Anaphy Verified 12/07/21 08:39 laxis lidocaine Allergy ALGY-Hives Verified 12/07/21 08:39 Penicillins Allergy ALGY-Anaphy Verified 12/07/21 08:39 laxis Sulfa (Sulfonamide Allergy ALGY-Anaphy Verified 12/07/21 08:39 Antibiotics) laxis tetracycline Allergy ALGY-Anaphy Verified 12/07/21 08:39 laxis tramadol [From Ultram] Allergy ALGY-Difficulty Verified 12/07/21 08:39 Breathing Current Medications Generic Name Dose Route Start Last Admin Trade Name Freq PRN Reason Stop Dose Admin Sodium Chloride 1,000 mls @ 30 mls/hr 12/09/21 06:15 12/09/21 06:27 Sodium Chloride 0.9% IV 12/10/21 06:14 30 mls/hr .Q24H CINTHYA Administration PFSH Anesthesia Medical History Community acquired pneumonia Family history of rectal cancer History of bipolar disorder History of hypertension Surgical History History of cholecystectomy History of hysterectomy History of knee surgery History of tonsillectomy Family History Mother , at age 78 COVID-19 Brother , at age 58 Cancer Colon Father , at age 45 Car occupant injured in traffic accident Other Hypertension Social History Smoking and tobacco status: current every day smoker e-cigarettes E-Cigarette Details: vaporizer device Alcohol intake: never Adopted: No Lives independently: Yes Household members: spouse Marital status: Number of grandchildren: 2 Current occupational status: disabled History of recent travel: No Female Reproductive History Spontaneous abortions: No Data Anesthesia Cardiac Studies: No Data to Display
[2021-12-09 08:04] VITALS: BP 148/120; PULSE 114; RESP 20; TEMP 36.8; O2SAT 93
[2021-12-09 08:20] VITALS: BP 149/80; PULSE 97; RESP 18; O2SAT 95
--- NOTE | 2021-12-09 17:48 | ANE.PACU2 ---
Inpatient post-anesthesia follow up: Airway intact: Yes Vital signs: Temperature 98.2 F Pulse Rate 97 Respiratory Rate 18 Blood Pressure 149/80 Pulse Oximetry 95 Oxygen Delivery Me thod Nasal Cannula Oxygen Flow Rate 3 Fraction of Inspir ed Oxygen Hydration adequate: Yes Nausea and vomiting: No Pain level: 1 Mental status: Baseline
== END 2021-12-09 08:30 | disposition home or self-care (01) ==
PROVIDERS: PCP Family Medicine; Visit Provider Surgery
PROC: 0DJD8ZZ Inspection of Lower Intestinal Tract, Via Natural or Artificial Opening Endoscopic (ICD-10-PCS; CPT 45378; principal; 2021-12-09 07:30)
DX: K92.1 Melena (principal); K62.89 Other specified diseases of anus and rectum; Z80.0 Family history of malignant neoplasm of digestive organs; K59.00 Constipation, unspecified; K64.8 Other hemorrhoids; K64.4 Residual hemorrhoidal skin tags; J44.9 Chronic obstructive pulmonary disease, unspecified; K21.9 Gastro-esophageal reflux disease without esophagitis; Z79.82 Long term (current) use of aspirin; I10 Essential (primary) hypertension; Z99.81 Dependence on supplemental oxygen
CPT/HCPCS: 45378; J2704; J7030

== ENCOUNTER 2021-12-10 17:59 | Emergency (ER) | payer MEDICAID, SELFPAY ==
[2021-12-10 18:17] VITALS: BP 150/123; PULSE 128; RESP 20; TEMP 37.1; O2SAT 96; BMI 44.6
--- NOTE | 2021-12-10 18:27 | CTR_ITS ---
PROCEDURE INFORMATION: Exam: CT Abdomen And Pelvis Without Contrast Exam date and time: 12/10/2021 7:19 PM Age: 56 years old Clinical indication: Pain; Other: Flank; Prior surgery; Surgery date: 6+ months; Surgery type: Hyst, c section, gall bladder; Additional info: Flank/abd pain TECHNIQUE: Imaging protocol: Computed tomography of the abdomen and pelvis without contrast. Radiation optimization: All CT scans at this facility use at least one of these dose optimization techniques: automated exposure control; mA and/or kV adjustment per patient size (includes targeted exams where dose is matched to clinical indication); or iterative reconstruction. COMPARISON: 1. CT abdomen pelvis w con* [id number] 11/27/2021 11:[address] kidney stone [id number] 10/09/2021 10:[address] Abdomen/Pelvis wo I 12/29/2012 6:59 PM RADIATION DOSE METRICS: Total DLP (mGy-cm): 2099.23 FINDINGS: Limitations: The absence of intravenous contrast lessens the sensitivity of this study for solid organ abnormalities. Lungs: There is a 7 mm sized noncalcified pulmonary nodule at the right lung base not significantly changed from 10/09/2021. This was present on CT scan 12/29/2012 also and allowing for technical differences is not significantly changed. No further follow-up is necessary. Liver: There is no focal abnormality within the liver. There is mild enlargement of the liver. Liver is 23 cm in height. Gallbladder and bile ducts: There has been a cholecystectomy. Pancreas: The pancreas is normal. Spleen: The spleen is normal. Adrenal glands: There is a 17 x 26 mm right adrenal nodule with density measurements below 10 consistent with benign adrenal adenoma not significantly changed from 10/09/2021. Smaller left adrenal adenoma also unchanged. Kidneys and ureters: 5 cm peripelvic cyst left kidney not significantly changed. The right kidney is normal. There is no evidence of hydronephrosis. There is no evidence of renal or ureteral calcifications. Stomach and bowel: There is no evidence of colitis/diverticulitis. There is no evidence of intestinal obstruction. Appendix: A normal appendix is identified. Intraperitoneal space: There is hypogastric ventral hernia containing only fat. There is no evidence of free intraperitoneal fluid. Vasculature: The aorta is normal. Lymph nodes: There is no evidence of lymphadenopathy. Urinary bladder: Unremarkable as visualized. Reproductive: There has been a hysterectomy. Bones/joints: The lumbar spine demonstrates moderate degenerative changes at multiple levels. Soft tissues: Unremarkable. CT/CT abdomen pelvis wo con [id number] IMPRESSION: 1. No acute findings in the abdomen or pelvis. 2. Chronic findings not significantly changed from previous.
[2021-12-10 18:40] LABS: Basophils # 0.1 10^3/uL (0.0-0.1); Basophils % 0.4 %; Eosinophils % 0.1 %; Hematocrit 47.1 % (37.0-47.0); Lymphocytes # 2.2 10^3/uL (0.8-4.8); Lymphocytes % 15.7 %; Mean Corpuscular HGB Conc 31.8 g/dL (30.0-36.0); Mean Corpuscular Hemoglobin 29.8 pg (28.0-34.0); Mean Corpuscular Volume 93.6 fl (81-99); Mean Platelet Volume 11.2 fL (7.4-10.4); Monocytes # 0.5 10^3/uL (0.2-0.9); Monocytes % 3.6 %; Neutrophils # 10.92 10^3/uL (1.8-7.7); Nucleated Red Blood Cells % 0 %; Platelet Count 290 10^3/cmm (130-400); Red Blood Count 5.03 10^6/uL (4.1-5.3); Red Cell Distribution Width 12.9 % (12.1-15.1); White Blood Count 14.2 10^3/uL (4.0-10.0)
--- NOTE | 2021-12-10 18:42 | ED_ITS ---
HPI - Back Pain/Injury General: Chief Complaint: Back Pain/Injury Stated Complaint: back pain Time Seen by Provider: 12/10/21 18:26 Source: patient and EMS Mode of arrival: EMS Limitations: no limitations History of Present Illness: 56-year-old female states she had a colonoscopy yesterday. States she has had some nausea and abdominal pain states she stood up today and had severe back pain. States in her right lower back states her pain is an 8 out of 10 she states its much worse with movement improved with rest she denies any diarrhea she denies any fevers. Associated symptoms: Reports abdominal pain, nausea and vomiting; Deny chills, dysuria or fever(s) Review of Systems Const: Denies: fever(s), chills, body aches or change in appetite Eyes: Denies: blurry vision or eye discomfort ENMT: Denies: throat pain or dental pain Card: Denies: chest pain Resp: Denies: dyspnea GI: Reports: abdominal pain, nausea and vomiting : Denies: dysuria Musc: Reports: back pain Skin/Breast: Denies: rash Neuro: Denies: headache(s) Psych: Denies: depression Anish/Lymph: Denies: easy bruising All/Imm: Denies: urticaria PFSH ED PFSH: Medical History Community acquired pneumonia Family history of rectal cancer History of bipolar disorder History of hypertension Surgical History History of cholecystectomy History of hysterectomy History of knee surgery History of tonsillectomy Family History Mother , at age 78 COVID-19 Brother , at age 58 Cancer Colon Father , at age 45 Car occupant injured in traffic accident Other Hypertension Social History Smoking and tobacco status: current every day smoker e-cigarettes E-Cigarette Details: vaporizer device Alcohol intake: never Adopted: No Lives independently: Yes Household members: spouse Marital status: Number of grandchildren: 2 Current occupational status: disabled History of recent travel: No Female Reproductive History: Spontaneous abortions: No Physical Exam Const: COMMON NORMALS: no acute distress, patient oriented x3 and healthy appearing HENMT: COMMON NORMALS: normocephalic and atraumatic HEAD & SCALP: normocephalic and atraumatic Eye: COMMON NORMALS: Equal, round and reactive pupils present and EOMs intact bilaterally PUPIL: Yes Equal, round and reactive pupils present Neck/C-Spine: COMMON NORMALS: full ROM and supple Chest: COMMONS NORMALS: normal inspection of the chest and normal palpation of entire chest wall Resp: COMMON NORMALS: normal respiratory effort, No retractions, No use of accessory muscles and clear to auscultation bilaterally AUSCULTATION: clear to auscultation bilaterally Cardio: COMMON NORMALS: regular rate, regular rhythm and No murmurs present (Cardio) RATE: regular rate RHYTHM: regular rhythm GI: COMMON NORMALS: Normal to inspection, nondistended, normoactive bowel sounds present, Soft to palpation, non-tender and no masses PALPATION: Yes Soft to palpation Back/Pelvis: OTHER: Tenderness along right lower back no saddle anesthesia Extremity: COMMON NORMALS: normal to inspection and full ROM Neuro: COMMON NORMALS: patient oriented x3, moves all extremities and no focal motor deficits Psych: COMMON NORMALS: mental status grossly normal, Normal thought process present and cooperative THOUGHT PROCESS: Normal thought process present Skin: COMMON NORMALS: no rashes or lesions noted and no wounds GENERAL SKIN EXAM: no rashes or lesions noted Course Vital Signs: Vital signs: Vital Signs Temperature 98.7 F 12/10/21 18:17 Pulse Rate 106 H 12/10/21 20:30 Respiratory Rate 18 12/10/21 20:30 Blood Pressure 136/62 12/10/21 20:30 Pulse Oximetry 93 12/10/21 20:30 Oxygen Delivery Me thod 12/10/21 20:30 Oxygen Flow Rate 3 12/10/21 20:30 MDM - Back Pain/Injury Medical Decision Making Patient presents here with back pain is likely muscular in origin CT scan blood work here is all normal she feels improved we will place her on pain meds and muscle relaxants she is to follow-up with PCP and return if worsening. She has no signs of cord compression. Labs : 12/10/21 17:49 12/10/21 17:49 Radiology Impressions Abdomen/Pelvis CT 12/10/21 18:27 IMPRESSION: 1. No acute findings in the abdomen or pelvis. 2. Chronic findings not significantly changed from previous. Laboratory Results WBC 14.2 10^3/uL (4.0-10.0) H 12/10/21 17:49 RBC 5.03 10^6/uL (4.1-5.3) 12/10/21 17:49 Hgb 15.0 g/dL (11.5-15.3) 12/10/21 17:49 Hct 47.1 % (37.0-47.0) H 12/10/21 17:49 MCV 93.6 fl (81-99) 12/10/21 17:49 MCH 29.8 pg (28.0-34.0) 12/10/21 17:49 MCHC 31.8 g/dL (30.0-36.0) 12/10/21 17:49 RDW 12.9 % (12.1-15.1) 12/10/21 17:49 Plt Count 290 10^3/cmm (130-400) 12/10/21 17:49 MPV 11.2 fL (7.4-10.4) H 12/10/21 17:49 Neut % (Auto) 77.0 % 12/10/21 17:49 Lymph % (Auto) 15.7 % 12/10/21 17:49 [place] % (Auto) 3.6 % 12/10/21 17:49 Eos % (Auto) 0.1 % 12/10/21 17:49 Baso % (Auto) 0.4 % 12/10/21 17:49 Neut # (Auto) 10.92 10^3/uL (1.8-7.7) H 12/10/21 17:49 Lymph # (Auto) 2.2 10^3/uL (0.8-4.8) 12/10/21 17:49 [place] # (Auto) 0.5 10^3/uL (0.2-0.9) 12/10/21 17:49 Eos # (Auto) 0.0 10^3/uL (0.0-0.8) 12/10/21 17:49 Baso # (Auto) 0.1 10^3/uL (0.0-0.1) 12/10/21 17:49 Nucleated RBC % (auto) 0 % 12/10/21 17:49 Nucleated RBCs # 0.0 /100WBC 12/10/21 17:49 Sodium 139 mmol/L (136-145) 12/10/21 17:49 Potassium 4.4 mmol/L (3.5-5.1) 12/10/21 17:49 Chloride 100 mmol/L (98-107) 12/10/21 17:49 Carbon Dioxide 25 mmol/L (22-29) 12/10/21 17:49 Anion Gap 18.4 (5-19) 12/10/21 17:49 BUN 14 mg/dL (6-20) 12/10/21 17:49 Creatinine 0.5 mg/dL (0.5-0.9) 12/10/21 17:49 GFR Calculation 127.2 mL/min (90-130) 12/10/21 17:49 Glucose 267 mg/dL (65-115) H 12/10/21 17:49 Calculated Osmolality 298 mOsm/kg (285-295) H 12/10/21 17:49 Calcium 10.6 mg/dL (8.5-10.5) H 12/10/21 17:49 Total Bilirubin 0.2 mg/dL (0.15-1.2) 12/10/21 17:49 AST 21 U/L (0-32) 12/10/21 17:49 ALT 14 U/L (0-33) 12/10/21 17:49 Alkaline Phosphatase 87 U/L (35-105) 12/10/21 17:49 Total Protein 8.4 g/dL (6.6-8.7) 12/10/21 17:49 Albumin 4.3 g/dL (3.5-5.2) 12/10/21 17:49 Globulin 4.1 g/dL (1.3-4.6) 12/10/21 17:49 Lipase 37 U/L (13-60) 12/10/21 17:49 Urine Color Yellow (Yellow) 12/10/21 19:38 Urine Appearance Clear (CLEAR) 12/10/21 19:38 Urine pH 5 (5-7) 12/10/21 19:38 Ur Specific [place] 1.030 (1.005-1.030) 12/10/21 19:38 Urine Protein 1+ (Negative) H 12/10/21 19:38 Urine Glucose (UA) 2+ (Normal) H 12/10/21 19:38 Urine Ketones 1+ (Negative) H 12/10/21 19:38 Urine Blood Trace (Negative) H 12/10/21 19:38 Urine Nitrate Negative (Negative) 12/10/21 19:38 Urine Bilirubin Neg (Negative) 12/10/21 19:38 Urine Urobilinogen Norm mg/dL (Negative) 12/10/21 19:38 Ur Leukocyte Esterase Negative (Negative) 12/10/21 19:38 Urine RBC 0-4 /hpf (0-2) H 12/10/21 19:38 Urine WBC None /hpf (0-5) 12/10/21 19:38 Ur Squamous Epith Cells 0-4 /hpf (0-5) H 12/10/21 19:38 Amorphous Sediment Not Reportable 12/10/21 19:38 Urine Bacteria None /hpf (NONE) 12/10/21 19:38 Urine Mucus 1+ /hpf 12/10/21 19:38 Discharge Plan Discharge Patient Disposition: Home Clinical Impression: Low back pain Condition: Stable Prescriptions: New hydrocodone-acetaminophen 5-325 mg tablet 1 tab PO Q6H PRN (Reason: pain) Qty: 14 0RF methocarbamol 750 mg tablet 750 mg PO Q6H PRN (Reason: spasms) Qty: 20 0RF No Action (DME) manual wheelchair See Rx Instructions .Route .MEDSUPPLY Qty: 1 0RF Rx Instructions: As directed hydrocortisone [Anusol-HC] 2.5 % cream with perineal applicator 1 applic GA QID 20 Days Qty: 30 1RF gabapentin 600 mg tablet 300 mg PO BID Qty: 30 2RF amitriptyline 25 mg tablet 25 mg PO BEDTIME Qty: 90 1RF ondansetron HCl 4 mg tablet 4 mg PO Q6H PRN (Reason: Nausea And Vomiting) Qty: 10 0RF aspirin 81 mg Tablet,Chewable 81 mg PO DAILY albuterol sulfate 90 mcg/actuation HFA aerosol inhaler 2 inh INHALATION Q4H PRN (Reason: shortness of breath or wheezing) Qty: 18 0RF fluticasone propion-salmeterol [Advair Diskus] 250-50 mcg/dose blister with device 1 inh inhalation BID Qty: 60 1RF hydrocortisone [Anusol-HC] 2.5 % cream with perineal applicator 1 applic GA QID 10 Days Qty: 30 0RF Rx Instructions: May repeat for second 10 days if no resolution Discharge Orders: Discharge ED (Routine); Ordered 12/10/21 Ordered By: Karen Oviedo Referrals: Benson Deleon, [Primary Care Provider] - 1-3 days Discharge Diet: Advance as tolerated Discharge Activity: Resume usual activity Patient Instructions: Acute Low Back Pain (ED), Opioid Safety Coding Level of Care Code ED Manager Recruitment for Chg Fwd Exam Comprehensive
[2021-12-10] MEDS: diphenhydrAMINE 50 mg/mL SDV 1mL IVP (18:50)
[2021-12-10] MEDS: HYDROmorphone 1 mg/mL INJ 1 mL IVP (18:50)
[2021-12-10] MEDS: metoclopramide 5 mg/mL SDV 2 mL 10 MG IVP (18:50)
[2021-12-10 18:51] LABS: Alanine Aminotransferase 14 U/L (0-33); Albumin Level 4.3 g/dL (3.5-5.2); Alkaline Phosphatase 87 U/L (35-105); Anion Gap 18.4 (5-19); Aspartate Amino Transferase 21 U/L (0-32); Blood Urea Nitrogen 14 mg/dL (6-20); Calcium 10.6 mg/dL (8.5-10.5); Carbon Dioxide 25 mmol/L (22-29); Chloride 100 mmol/L (98-107); Globulin 4.1 g/dL (1.3-4.6); Glomerular Filtration Rate 127.2 mL/min (90-130); Glucose 267 mg/dL (65-115); Lipase 37 U/L (13-60); Osmolality Calculated 298 mOsm/kg (285-295); Potassium 4.4 mmol/L (3.5-5.1); Sodium 139 mmol/L (136-145); Total Bilirubin 0.2 mg/dL (0.15-1.2); Total Protein 8.4 g/dL (6.6-8.7)
[2021-12-10 19:50] VITALS: BP 171/131; PULSE 106; RESP 20; O2SAT 98
[2021-12-10 20:00] VITALS: BP 177/127; PULSE 72; RESP 18; O2SAT 97
[2021-12-10 20:30] VITALS: BP 136/62; PULSE 106; RESP 18; O2SAT 93
[2021-12-10] MEDS: haloperidol inj 5 mg/mL INJ 1 mL IVP (20:31)
[2021-12-10 20:49] LABS: Glucose Urine UA 2+ (Normal); Ketones Urine 1+ (Negative); Protein Urine 1+ (Negative); Urine Appearance Clear (CLEAR); Urine Color Yellow (Yellow); pH Urine 5 (5-7)
[2021-12-10 20:50] LABS: Add Urine Microscopic? YES; Bilirubin Urine Neg (Negative); Blood Urine Trace (Negative); Leukocyte Esterase Urine Negative (Negative); Nitrate Urine Negative (Negative); Urobilinogen Urine Norm (Negative)
[2021-12-10 20:51] LABS: RBC Urine 0-4 /hpf (0-2); Squamous Epithelial Cell Urine 0-4 /hpf (0-5)
[2021-12-10 20:52] LABS: Add Urine Culture? No; Mucus Urine 1+ /hpf
[2021-12-10] MEDS: dexamethasone 10 mg/mL INJ IVP (20:59)
[2021-12-10 21:15] VITALS: BP 116/67; PULSE 95; RESP 20; O2SAT 96
== END 2021-12-10 21:17 | disposition home or self-care (01) ==
PROVIDERS: Emergency Provider Emergency Medicine; PCP Family Medicine
DX: M54.50 Low back pain, unspecified (principal); Z79.82 Long term (current) use of aspirin; F17.290 Nicotine dependence, other tobacco product, uncomplicated; I10 Essential (primary) hypertension
CPT/HCPCS: 74176; 80053; 81001; 83690; 85025; 96374; 96375; 99285; J1100; J1170; J1200; J1630; J2765

== ENCOUNTER 2021-12-23 09:13 | Emergency (ER) | payer MEDICAID, SELFPAY ==
[2021-12-23] VITALS (8 sets, daily range): BP systolic 115–188; BP diastolic 79–119; PULSE 81–94; RESP 20–22; TEMP 36.7; O2SAT 96–99; BMI 48.8
[2021-12-23 09:50] LABS: Basophils # 0.1 10^3/uL (0.0-0.1); Basophils % 0.4 %; Eosinophils # 0.2 10^3/uL (0.0-0.8); Eosinophils % 1.6 %; Hematocrit 43.1 % (37.0-47.0); Hemoglobin 13.7 g/dL (11.5-15.3); Lymphocytes # 3.3 10^3/uL (0.8-4.8); Lymphocytes % 27.5 %; Mean Corpuscular HGB Conc 31.8 g/dL (30.0-36.0); Mean Corpuscular Hemoglobin 29.8 pg (28.0-34.0); Mean Corpuscular Volume 93.7 fl (81-99); Mean Platelet Volume 10.4 fL (7.4-10.4); Neutrophils # 7.44 10^3/uL (1.8-7.7); Neutrophils % 61.9 %; Nucleated Red Blood Cells % 0 %; Platelet Count 191 10^3/cmm (130-400); Red Cell Distribution Width 12.9 % (12.1-15.1)
[2021-12-23 10:07] LABS: Alanine Aminotransferase 11 U/L (0-33); Albumin Level 3.6 g/dL (3.5-5.2); Alkaline Phosphatase 70 U/L (35-105); Anion Gap 15.3 (5-19); Aspartate Amino Transferase 21 U/L (0-32); Blood Urea Nitrogen 12 mg/dL (6-20); Calcium 9.1 mg/dL (8.5-10.5); Carbon Dioxide 24 mmol/L (22-29); Chloride 103 mmol/L (98-107); Globulin 3.1 g/dL (1.3-4.6); Glomerular Filtration Rate 164.5 mL/min (90-130); Glucose 178 mg/dL (65-115); Lipase 30 U/L (13-60); Osmolality Calculated 290 mOsm/kg (285-295); Potassium 4.3 mmol/L (3.5-5.1); Sodium 138 mmol/L (136-145); Total Bilirubin 0.2 mg/dL (0.15-1.2); Total Protein 6.7 g/dL (6.6-8.7)
--- NOTE | 2021-12-23 11:35 | CT_ITS ---
WS: [id number] CT ABDOMEN AND PELVIS WITH CONTRAST HISTORY: RLQ abdominal pain, n/v TECHNIQUE: Imaging performed of the abdomen and pelvis with IV contrast. Single phase imaging of the abdomen. Coronal and sagittal reformats are submitted. All CT scans at [facility] use at [address] one of these dose optimization techniques: automated exposure control; mA and/or kV adjustment per patient size (includes targeted exams where dose is matched to clinical indication); or iterative re construction. IV CONTRAST: Omnipaque 350; on 100 mL IV. Oral contrast: No DLP: 1996.83 mGy.cm COMPARISON: 12/10/2021 Lower thorax: Lung bases are clear. Heart is normal size. Small hiatal hernia. Liver/biliary system: Mild hepatomegaly. No bile duct dilatation. Gallbladder: Prior cholecystectomy. Pancreas: Normal size pancreas and pancreatic duct. No adjacent inflammation. Spleen: Normal size spleen. No mass or infarct. Adrenal glands: RIGHT adrenal well-circumscribed mass measures 2.2 cm. Noted to be an adenoma on prio r noncontrast examinations. Right kidney: Normal. Left kidney: 5.0 x 5.1 cm cyst LEFT kidney is parapelvic. Similar to prior studies with no obstructio n. Aorta: Mild atherosclerosis with no aneurysm. Lymphadenopathy: None. Free fluid: None. GI tract: Normal appearance of the nondistended stomach. No small bowel obstruction. Normal appendix. No diverticulosis. Abdominal wall: Umbilical hernias at the level of the umbilicus contains fat. Pelvis: Well-distended urinary bladder. Prior hysterectomy. Bones: Degenerative disc disease. No osteoblastic or osteolytic bone disease. Subchondral cysts in th e RIGHT femoral head. CT/CT abdomen pelvis w con* [id number] IMPRESSION: 1. Normal appendix. 2. No acute abdominal or pelvic abnormalities. 3. Fat-containing umbilical hernias. 4. Stable LEFT parapelvic cyst and RIGHT adrenal adenoma. 5. Prior cholecystectomy and hysterectomy.
--- NOTE | 2021-12-23 11:40 | ED_ITS ---
Documented by User: RHONDA Walker 12/24/21 06:09 HPI - Abdominal Pain General: Chief Complaint: Abdominal Pain Stated Complaint: N/V abd pain Time Seen by Provider: 12/23/21 11:08 History of Present Illness: SymptomPatient is a 56-year-old female comes to the ED with abdominal pain nausea and vomiting. Past surgical history of cholecystectomy, hysterectomy and . Patient is currently on 3 L of oxygen at home. Symptoms started yesterday. She states that the abdominal pain is located in right lower quadrant of her abdomen. Pain radiates to right lower back as well. She rates the pain currently a 9 out of 10 and says it gets worse after she eats. She endorses having nausea and vomiting as well. She has chronic diarrhea and states that that has not changed at all since onset of symptoms. She had a fever of 101 last night and took some Tylenol. Endorses having difficulty urinating. Associated Symptoms: Reports nausea and vomiting; Denies chills, constipation, diarrhea, dysuria, fever(s), hematochezia and hematuria Review of Systems Const: Denies: fever(s), chills or fatigue Eyes: Denies: change in vision or eye discomfort ENMT: Denies: throat pain, odynophagia, nasal discharge or nasal congestion Card: Denies: chest pain, palpitations, edema, swelling of feet/ankles, dyspnea on exertion or orthopnea Resp: Denies: dyspnea, productive cough or non-productive cough GI: Reports: abdominal pain, nausea and vomiting; Denies: diarrhea, constipation or hematochezia : Reports: difficulty voiding; Denies: flank pain, dysuria or hematuria Musc: Denies: neck pain, back pain or extremity swelling Skin/Breast: Denies: rash or new lesions Neuro: Denies: headache(s), numbness in extremities or weakness in extremities PFSH ED PFSH: Medical History Community acquired pneumonia Family history of rectal cancer History of bipolar disorder History of hypertension Surgical History History of cholecystectomy History of hysterectomy History of knee surgery History of tonsillectomy Family History Mother , at age 78 COVID-19 Brother , at age 58 Cancer Colon Father , at age 45 Car occupant injured in traffic accident Other Hypertension Social History Smoking and tobacco status: current every day smoker cigarettes Packs smoked per day: 3 Years cigarettes smoked: 30 [ Other cigarette details: Currently smoking 0.5 ppd and vaping.] and e-cigarettes E-Cigarette Details: vaporizer device Quit status (tobacco): considering quitting Alcohol intake: never Adopted: No Lives independently: Yes Household members: spouse Marital status: Number of grandchildren: 2 Current occupational status: disabled History of recent travel: No Female Reproductive History: Spontaneous abortions: No Physical Exam Const: COMMON NORMALS: patient oriented x3 and alert GENERAL APPEARANCE: cooperative NUTRITIONAL APPEARANCE: obese HENMT: COMMON NORMALS: normocephalic HEAD & SCALP: normocephalic MOUTH: Normal oral and palatal mucosa present THROAT: posterior oropharynx normal and uvula midline Neck/C-Spine: COMMON NORMALS: supple GENERAL: Yes normal visual inspection Resp: COMMON NORMALS: normal respiratory effort, No retractions, No use of accessory muscles and clear to auscultation bilaterally AUSCULTATION: clear to auscultation bilaterally Cardio: COMMON NORMALS: regular rate, regular rhythm, S1 normal heart sound present, S2 normal heart sound present, No gallops present (Cardio), No clicks present (Cardio), No murmurs present (Cardio) and Peripheral pulses 2+ throughout RATE: regular rate RHYTHM: regular rhythm HEART SOUNDS: S1 normal heart sound present and S2 normal heart sound present PERIPHERAL PULSES: Peripheral pulses 2+ throughout GI: COMMON NORMALS: Normal to inspection, nondistended, normoactive bowel sounds present, Soft to palpation and no masses INSPECTION: Yes central obesity PALPATION: Yes Soft to palpation and Yes Tenderness to palpation present (GI) Details: RLQ : COMMON NORMALS: Yes no CVA tenderness BLADDER/KIDNEY EXAM: Yes no CVA tenderness Back/Pelvis: COMMON NORMALS: no CVA tenderness Extremity: COMMON NORMALS: normal to inspection Neuro: COMMON NORMALS: patient oriented x3 SENSORIUM/ORIENTATION: Yes alert GAIT: Yes Normal gait present Skin: GENERAL SKIN EXAM: dry skin Course Vital Signs: Vital signs: Vital Signs Temperature 98.1 F 12/23/21 10:35 Pulse Rate 81 12/23/21 17:01 Respiratory Rate 22 H 12/23/21 12:48 Blood Pressure 115/89 12/23/21 17:01 Pulse Oximetry 98 12/23/21 17:01 Oxygen Delivery Me thod 12/23/21 16:00 Oxygen Flow Rate 3 12/23/21 16:00 MDM - Abdominal Pain Medical Decision Making Patient is a 56-year-old female comes to the ED with abdominal pain. She has pain in the right lower quadrant of her abdomen. Vitals are stable patient is on 3 L of oxygen at home and on 3 L of oxygen here in the ED. She has some right lower quadrant abdominal tenderness but rest of exam is benign. White blood cell count of 12 and the rest of CBC, CMP, lipase and UA were unremarkable. CT of abdomen pelvis showed no acute findings but did note fat containing umbilical hernias. I placed an order with case management for patient referred to general surgery for evaluation of umbilical hernias. Patient's symptoms were controlled with IV fluids, pain meds and Zofran. Patient was diagnosed with abdominal brain and umbilical hernias and was discharged home with a prescription for something for nausea and a couple hydrocodone for pain. Told to follow-up with her PCP within the next week for reevaluation. Return to ED precautions given. Patient understood and agreed with plan. Lab Data I reviewed the patient's lab results. : 12/23/21 09:43 12/23/21 09:43 Labs/Radiology: Radiology Impressions Abdomen/Pelvis CT 12/23/21 11:35 IMPRESSION: 1. Normal appendix. 2. No acute abdominal or pelvic abnormalities. 3. Fat-containing umbilical hernias. 4. Stable LEFT parapelvic cyst and RIGHT adrenal adenoma. 5. Prior cholecystectomy and hysterectomy. Laboratory Results WBC 12.0 10^3/uL (4.0-10.0) H 12/23/21 09:43 RBC 4.60 10^6/uL (4.1-5.3) 12/23/21 09:43 Hgb 13.7 g/dL (11.5-15.3) 12/23/21 09:43 Hct 43.1 % (37.0-47.0) 12/23/21 09:43 MCV 93.7 fl (81-99) 12/23/21 09:43 MCH 29.8 pg (28.0-34.0) 12/23/21 09:43 MCHC 31.8 g/dL (30.0-36.0) 12/23/21 09:43 RDW 12.9 % (12.1-15.1) 12/23/21 09:43 Plt Count 191 10^3/cmm (130-400) 12/23/21 09:43 MPV 10.4 fL (7.4-10.4) 12/23/21 09:43 Neut % (Auto) 61.9 % 12/23/21 09:43 Lymph % (Auto) 27.5 % 12/23/21 09:43 [place] % (Auto) 8.0 % 12/23/21 09:43 Eos % (Auto) 1.6 % 12/23/21 09:43 Baso % (Auto) 0.4 % 12/23/21 09:43 Neut # (Auto) 7.44 10^3/uL (1.8-7.7) 12/23/21 09:43 Lymph # (Auto) 3.3 10^3/uL (0.8-4.8) 12/23/21 09:43 [place] # (Auto) 1.0 10^3/uL (0.2-0.9) H 12/23/21 09:43 Eos # (Auto) 0.2 10^3/uL (0.0-0.8) 12/23/21 09:43 Baso # (Auto) 0.1 10^3/uL (0.0-0.1) 12/23/21 09:43 Nucleated RBC % (auto) 0 % 12/23/21 09:43 Nucleated RBCs # 0.0 /100WBC 12/23/21 09:43 Sodium 138 mmol/L (136-145) 12/23/21 09:43 Potassium 4.3 mmol/L (3.5-5.1) 12/23/21 09:43 Chloride 103 mmol/L (98-107) 12/23/21 09:43 Carbon Dioxide 24 mmol/L (22-29) 12/23/21 09:43 Anion Gap 15.3 (5-19) 12/23/21 09:43 BUN 12 mg/dL (6-20) 12/23/21 09:43 Creatinine 0.4 mg/dL (0.5-0.9) L 12/23/21 09:43 GFR Calculation 164.5 mL/min (90-130) H 12/23/21 09:43 Glucose 178 mg/dL (65-115) H 12/23/21 09:43 Calculated Osmolality 290 mOsm/kg (285-295) 12/23/21 09:43 Calcium 9.1 mg/dL (8.5-10.5) 12/23/21 09:43 Total Bilirubin 0.2 mg/dL (0.15-1.2) 12/23/21 09:43 AST 21 U/L (0-32) 12/23/21 09:43 ALT 11 U/L (0-33) 12/23/21 09:43 Alkaline Phosphatase 70 U/L (35-105) 12/23/21 09:43 Total Protein 6.7 g/dL (6.6-8.7) 12/23/21 09:43 Albumin 3.6 g/dL (3.5-5.2) 12/23/21 09:43 Globulin 3.1 g/dL (1.3-4.6) 12/23/21 09:43 Lipase 30 U/L (13-60) 12/23/21 09:43 Urine Color Yellow (Yellow) 12/23/21 16:04 Urine Appearance Clear (CLEAR) 12/23/21 16:04 Urine pH 5 (5-7) 12/23/21 16:04 Ur Specific [place] 1.015 (1.005-1.030) 12/23/21 16:04 Urine Protein Neg (Negative) 12/23/21 16:04 Urine Glucose (UA) Norm (Normal) 12/23/21 16:04 Urine Ketones Negative (Negative) 12/23/21 16:04 Urine Blood Neg (Negative) 12/23/21 16:04 Urine Nitrate Negative (Negative) 12/23/21 16:04 Urine Bilirubin Neg (Negative) 12/23/21 16:04 Urine Urobilinogen Norm mg/dL (Negative) 12/23/21 16:04 Ur Leukocyte Esterase Negative (Negative) 12/23/21 16:04 Discharge Plan Discharge Patient Disposition: Home Clinical Impression: Abdominal pain Qualifiers: Abdominal location: right lower quadrant Qualified Code(s): R10.31 - Right lower quadrant pain Hernia, umbilical Qualifiers: Obstruction and gangrene presence: without obstruction or gangrene Qualified Code(s): K42.9 - Umbilical hernia without obstruction or gangrene Condition: Stable Prescriptions: New ondansetron 4 mg tablet,disintegrating 4 mg PO Q8H PRN (Reason: nausea and vomiting) Qty: 15 0RF No Action (DME) manual wheelchair See Rx Instructions .Route .MEDSUPPLY Qty: 1 0RF Rx Instructions: As directed gabapentin 600 mg tablet 300 mg PO BID Qty: 30 2RF amitriptyline 25 mg tablet 25 mg PO BEDTIME Qty: 90 1RF aspirin 81 mg Tablet,Chewable 81 mg PO DAILY albuterol sulfate 90 mcg/actuation HFA aerosol inhaler 2 inh INHALATION Q4H PRN (Reason: shortness of breath or wheezing) Qty: 18 0RF fluticasone propion-salmeterol [Advair Diskus] 250-50 mcg/dose blister with device 1 inh inhalation BID Qty: 60 1RF Imodium A-D 2 mg Capsule 2 mg PO Q4H PRN (Reason: Diarrhea) ibuprofen 200 mg Tablet 400 mg PO Q6H PRN (Reason: Pain) methocarbamol 750 mg tablet 750 mg PO Q6H PRN (Reason: spasms) Qty: 20 0RF Discharge Orders: Discharge ED (Routine); Ordered 12/23/21 Ordered By: Sabino Gibbs Referrals: Benson Deleon DO [Primary Care Provider] - Discharge Diet: Advance as tolerated and Clear Liquid Discharge Activity: Increase activity as tolerated Patient Instructions: Abdominal Pain (ED) Activity Restrictions/Additional Instructions: Follow-up with medical provider as directed. Case management should be counting in the next several days to set up an appointment with general surgery for follow-up on umbilical hernias. Take medications as prescribed. Return to the ER or your medical provider if condition worsens. Please read and understand discharge instructions. Thank you for choosing [facility] for your healthcare needs today. Vinod hoffman realize this is an emergency room and that we are providing you with a medical screening exam and this may not be complete and all inclusive of all the testing and or work up that you may need to determine your ailment or severity of your illness. It is very important that you follow up as instructed or that you return to the Emergency Department should you have concerns or if your condition changes or worsens in any way. Coding Level of Care Code ED Industrial Manufacturing Technician for Chg Fwd Exam Comprehensive Documented by User: Dheeraj Suarez DO 12/25/21 15:22 HPI - Abdominal Pain General: Chief Complaint: Abdominal Pain Stated Complaint: N/V abd pain Time Seen by Provider: 12/23/21 11:08 [facility] ED PFSH: Medical History Community acquired pneumonia Family history of rectal cancer History of bipolar disorder History of hypertension Surgical History History of cholecystectomy History of hysterectomy History of knee surgery History of tonsillectomy Family History Mother , at age 78 COVID-19 Brother , at age 58 Cancer Colon Father , at age 45 Car occupant injured in traffic accident Other Hypertension Social History Smoking and tobacco status: current every day smoker cigarettes Packs smoked per day: 3 Years cigarettes smoked: 30 [ Other cigarette details: Currently smoking 0.5 ppd and vaping.] and e-cigarettes E-Cigarette Details: vaporizer device Quit status (tobacco): considering quitting Alcohol intake: never Adopted: No Lives independently: Yes Household members: spouse Marital status: Number of grandchildren: 2 Current occupational status: disabled History of recent travel: No Course Vital Signs: Vital signs: Vital Signs Temperature 98.1 F 12/23/21 10:35 Pulse Rate 81 12/23/21 17:01 Respiratory Rate 22 H 12/23/21 12:48 Blood Pressure 115/89 12/23/21 17:01 Pulse Oximetry 98 12/23/21 17:01 Oxygen Delivery Me thod 11/09/22 16:00 Oxygen Flow Rate 3 12/23/21 16:00 MDM - Abdominal Pain Medical Decision Making Patient is a 56-year-old female comes to the ED with abdominal pain. She has pain in the right lower quadrant of her abdomen. Vitals are stable patient is on 3 L of oxygen at home and on 3 L of oxygen here in the ED. She has some ri ght lower quadrant abdominal tenderness but rest of exam is benign. White blood cell count of 12 and the rest of CBC, CMP, lipase and UA were unremarkable. CT of abdomen pelvis showed no acute findings but did note fat containing umbilical hernias. I placed an order with case management for patient referred to general surgery for evaluation of umbilical hernias. Patient's symptoms were controlled with IV fluids, pain meds and Zofran. Patient was diagnosed with abdominal brain and umbilical hernias and was discharged home with a prescription for something for nausea and a couple hydrocodone for pain. Told to follow-up with her PCP within the next week for reevaluation. Return to ED precautions given. Patient understood and agreed with plan. Chart reviewed and patient discussed with midlevel. Agree with assessment and plan. Lab Data : 12/23/21 09:43 12/23/21 09:43 Labs/Radiology: Radiology Impressions Abdomen/Pelvis CT 12/23/21 11:35 IMPRESSION: 1. Normal appendix. 2. No acute abdominal or pelvic abnormalities. 3. Fat-containing umbilical hernias. 4. Stable LEFT parapelvic cyst and RIGHT adrenal adenoma. 5. Prior cholecystectomy and hysterectomy. Laboratory Results WBC 12.0 10^3/uL (4.0-10.0) H 12/23/21 09:43 RBC 4.60 10^6/uL (4.1-5.3) 12/23/21 09:43 Hgb 13.7 g/dL (11.5-15.3) 12/23/21 09:43 Hct 43.1 % (37.0-47.0) 12/23/21 09:43 MCV 93.7 fl (81-99) 12/23/21 09:43 MCH 29.8 pg (28.0-34.0) 12/23/21 09:43 MCHC 31.8 g/dL (30.0-36.0) 12/23/21 09:43 RDW 12.9 % (12.1-15.1) 12/23/21 09:43 Plt Count 191 10^3/cmm (130-400) 12/23/21 09:43 MPV 10.4 fL (7.4-10.4) 12/23/21 09:43 Neut % (Auto) 61.9 % 12/23/21 09:43 Lymph % (Auto) 27.5 % 12/23/21 09:43 [place] % (Auto) 8.0 % 12/23/21 09:43 Eos % (Auto) 1.6 % 12/23/21 09:43 Baso % (Auto) 0.4 % 12/23/21 09:43 Neut # (Auto) 7.44 10^3/uL (1.8-7.7) 12/23/21 09:43 Lymph # (Auto) 3.3 10^3/uL (0.8-4.8) 12/23/21 09:43 [place] # (Auto) 1.0 10^3/uL (0.2-0.9) H 12/23/21 09:43 Eos # (Auto) 0.2 10^3/uL (0.0-0.8) 12/23/21 09:43 Baso # (Auto) 0.1 10^3/uL (0.0-0.1) 12/23/21 09:43 Nucleated RBC % (auto) 0 % 12/23/21 09:43 Nucleated RBCs # 0.0 /100WBC 12/23/21 09:43 Sodium 138 mmol/L (136-145) 12/23/21 09:43 Potassium 4.3 mmol/L (3.5-5.1) 12/23/21 09:43 Chloride 103 mmol/L (98-107) 12/23/21 09:43 Carbon Dioxide 24 mmol/L (22-29) 12/23/21 09:43 Anion Gap 15.3 (5-19) 12/23/21 09:43 BUN 12 mg/dL (6-20) 12/23/21 09:43 Creatinine 0.4 mg/dL (0.5-0.9) L 12/23/21 09:43 GFR Calculation 164.5 mL/min (90-130) H 12/23/21 09:43 Glucose 178 mg/dL (65-115) H 12/23/21 09:43 Calculated Osmolality 290 mOsm/kg (285-295) 12/23/21 09:43 Calcium 9.1 mg/dL (8.5-10.5) 12/23/21 09:43 Total Bilirubin 0.2 mg/dL (0.15-1.2) 12/23/21 09:43 AST 21 U/L (0-32) 12/23/21 09:43 ALT 11 U/L (0-33) 12/23/21 09:43 Alkaline Phosphatase 70 U/L (35-105) 12/23/21 09:43 Total Protein 6.7 g/dL (6.6-8.7) 12/23/21 09:43 Albumin 3.6 g/dL (3.5-5.2) 12/23/21 09:43 Globulin 3.1 g/dL (1.3-4.6) 12/23/21 09:43 Lipase 30 U/L (13-60) 12/23/21 09:43 Urine Color Yellow (Yellow) 12/23/21 16:04 Urine Appearance Clear (CLEAR) 12/23/21 16:04 Urine pH 5 (5-7) 12/23/21 16:04 Ur Specific [place] 1.015 (1.005-1.030) 12/23/21 16:04 Urine Protein Neg (Negative) 12/23/21 16:04 Urine Glucose (UA) Norm (Normal) 12/23/21 16:04 Urine Ketones Negative (Negative) 12/23/21 16:04 Urine Blood Neg (Negative) 12/23/21 16:04 Urine Nitrate Negative (Negative) 12/23/21 16:04 Urine Bilirubin Neg (Negative) 12/23/21 16:04 Urine Urobilinogen Norm mg/dL (Negative) 12/23/21 16:04 Ur Leukocyte Esterase Negative (Negative) 12/23/21 16:04 Discharge Plan Discharge Patient Disposition: Home Clinical Impression: Abdominal pain Qualifiers: Abdominal location: right lower quadrant Qualified Code(s): R10.31 - Right lower quadrant pain Hernia, umbilical Qualifiers: Obstruction and gangrene presence: without obstruction or gangrene Qualified Code(s): K42.9 - Umbilical hernia without obstruction or gangrene Condition: Stable Prescriptions: New ondansetron 4 mg tablet,disintegrating 4 mg PO Q8H PRN (Reason: nausea and vomiting) Qty: 15 0RF No Action (DME) manual wheelchair See Rx Instructions .Route .MEDSUPPLY Qty: 1 0RF Rx Instructions: As directed gabapentin 600 mg tablet 300 mg PO BID Qty: 30 2RF amitriptyline 25 mg tablet 25 mg PO BEDTIME Qty: 90 1RF aspirin 81 mg Tablet,Chewable 81 mg PO DAILY albuterol sulfate 90 mcg/actuation HFA aerosol inhaler 2 inh INHALATION Q4H PRN (Reason: shortness of breath or wheezing) Qty: 18 0RF fluticasone propion-salmeterol [Advair Diskus] 250-50 mcg/dose blister with device 1 inh inhalation BID Qty: 60 1RF Imodium A-D 2 mg Capsule 2 mg PO Q4H PRN (Reason: Diarrhea) ibuprofen 200 mg Tablet 400 mg PO Q6H PRN (Reason: Pain) methocarbamol 750 mg tablet 750 mg PO Q6H PRN (Reason: spasms) Qty: 20 0RF Discharge Orders: Discharge ED (Routine); Ordered 12/23/21 Ordered By: Sabino Gibbs Referrals: Benson Deleon, [Primary Care Provider] - Discharge Diet: Advance as tolerated and Clear Liquid Discharge Activity: Increase activity as tolerated Patient Instructions: Abdominal Pain (ED) Activity Restrictions/Additional Instructions: Follow-up with medical provider as directed. Case management should be counting in the next several days to set up an appointment with general surgery for follow-up on umbilical hernias. Take medications as prescribed. Return to the ER or your medical provider if condition worsens. Please read and understand discharge instructions. Thank you for choosing [facility] for your healthcare needs today. Please realize this is an emergency room and that we are providing you with a medical screening exam and this may not be complete and all inclusive of all the testing and or work up that you may need to determine your ailment or severity of your illness. It is very important that you follow up as instructed or that you return to the Emergency Department should you have concerns or if your condition changes or worsens in any way. Coding Level of Care Code ED Industrial Manufacturing Technician for Abdirahman Hlil Exam Comprehensive
[2021-12-23] MEDS: morphine 4 mg/mL SDV 1 mL IVP ×2 (12:48→16:05)
[2021-12-23] MEDS: sodium chloride 0.9% 500 ML 999 ML IV (12:49)
[2021-12-23] MEDS: ondansetron 2 mg/ML SDV 2 mL 4 MG IVP (12:49)
[2021-12-23] MEDS: iohexol 350 mg/mL 500 mL Btl (per mL) IV (13:07)
[2021-12-23 16:20] LABS: Add Urine Microscopic? NO; Charge for UA Resulting for Rev
[2021-12-23 16:25] LABS: Specific Gravity, Urine 1.015 (1.005-1.030); Urine Appearance Clear (CLEAR); Urine Color Yellow (Yellow); pH Urine 5 (5-7)
[2021-12-23 16:26] LABS: Bilirubin Urine Neg (Negative); Blood Urine Neg (Negative); Glucose Urine UA Norm (Normal); Ketones Urine Negative (Negative); Leukocyte Esterase Urine Negative (Negative); Nitrate Urine Negative (Negative); Protein Urine Neg (Negative); Urobilinogen Urine Norm (Negative)
--- NOTE | 2021-12-24 11:13 | DCPLANNER ---
Addendum entered by Roselyn Allen 01/26/22 13:33: Patient had a follow up appointment scheduled with general surgery - patient did attend appointment Addendum entered by Roselyn Allen 01/05/22 13:48: Patient has a follow up appointment scheduled for Wednesday, January 12, 2022 at 2:[address] Roa at [facility]. Clinic will call patient with appointment information. Original Note: manager business continuity had message to schedule a follow up appointment for patient with general surgery. manager business continuity sent patients information to the front office staff at general surgery. Patients information will be printed and reviewed. Clinic will call patient with appointment information.
== END 2021-12-23 16:55 | disposition home or self-care (01) ==
PROVIDERS: Emergency Provider Physician Assistant; PCP Family Medicine
DX: K42.9 Umbilical hernia without obstruction or gangrene; F17.210 Nicotine dependence, cigarettes, uncomplicated; Z99.81 Dependence on supplemental oxygen
CPT/HCPCS: 36415; 74177; 80053; 81003; 83690; 85025; 96361; 96374; 96375; 96376; 99285; J2270; J2405; J7040; Q9967

== ENCOUNTER → 2021-12-24 09:31 | Outpatient (BNVA) | payer MEDICAID, SELFPAY | PROVIDERS: PCP Family Medicine; Visit Provider Internal Medicine Pulmonary Disease | DX: J44.9 Chronic obstructive pulmonary disease, unspecified (principal); G47.33 Obstructive sleep apnea (adult) (pediatric); G89.29 Other chronic pain; R91.1 Solitary pulmonary nodule; M54.50 Low back pain, unspecified; F17.210 Nicotine dependence, cigarettes, uncomplicated; F17.290 Nicotine dependence, other tobacco product, uncomplicated; Z99.81 Dependence on supplemental oxygen; E66.3 Overweight; Z68.42 Body mass index [BMI] 45.0-49.9, adult; R06.2 Wheezing | CPT/HCPCS: 99214 ==

== ENCOUNTER → 2022-01-12 14:18 | Outpatient (BNVA) | payer MEDICAID, SELFPAY | PROVIDERS: PCP Family Medicine; Visit Provider Surgery | DX: K42.9 Umbilical hernia without obstruction or gangrene (principal); K43.2 Incisional hernia without obstruction or gangrene | CPT/HCPCS: 99213 ==

== ENCOUNTER 2022-01-14 13:40 | Outpatient (CLI) | payer MEDICAID, SELFPAY ==
--- NOTE | 2022-01-14 16:00 | CT_ITS ---
WS: [id number] CT ABDOMEN PELVIS TECHNIQUE: Contrast-enhanced CT of the abdomen and pelvis with coronal and sagittal reformatted image s. CLINICAL INFORMATION: Adrenal nodules COMPARISON: None. DLP: 1714.[address] scans at [facility] use at least one of these dose optimization techniques: automated e xposure control; mA and/or kV adjustment per patient size (includes targeted exams where dose is matc hed to clinical indication); or iterative reconstruction. FINDINGS: Diffuse infiltration liver. Prior cholecystectomy. Prior hysterectomy. Normal portal vein and splenic vein. RIGHT adrenal adenoma. LEFT renal cyst measuring 4.5 x 5.2 CCM. Normal GE junction. Normal spl een. Lung bases are well aerated. Normal pancreas. Normal caliber abdominal aorta. Celiac and SMA are patent. LEFT adrenal gland is normal. No hydronephrosis in either kidney. Normal caliber abdominal aorta. Normal sigmoid colon. No evidence of high-grade small or subtle obst ruction. Tiny Fat-containing umbilical hernia. Additional periumbilical infraumbilical fat-containing hernia with abdominal wall defect measuring 3.5 cm. No herniated bowel. No abdominal or pelvic lymphadenopathy. No inguinal lymphadenopathy. Disc space narrowing L3-L5. CT/CT abdomen pelvis w con* [id number] IMPRESSION: 1. Diffuse fatty infiltration liver. 2. Prior cholecystectomy and hysterectomy. 3. Stable RIGHT adrenal adenoma measuring 2.5 CM. 4. LEFT renal cyst measuring 4.5 x 5.2CM. 5. No hydronephrosis in either kidney. 6. Tiny fat-containing umbilical hernia. 7. LEFT periumbilical and infraumbilical fat-containing hernia with a hernia m outh measuring 3.4 CM. No herniated bowel. 8. No other remarkable findings.
== END 2022-01-14 13:41 | disposition home or self-care (01) ==
LOC: RAD 13:41
PROVIDERS: PCP Family Medicine; Visit Provider Family Medicine
DX: E27.8 Other specified disorders of adrenal gland (principal); K76.0 Fatty (change of) liver, not elsewhere classified; Z90.49 Acquired absence of other specified parts of digestive tract; Z90.710 Acquired absence of both cervix and uterus; D35.01 Benign neoplasm of right adrenal gland; N28.1 Cyst of kidney, acquired; K42.9 Umbilical hernia without obstruction or gangrene
CPT/HCPCS: 74177; Q9967

== ENCOUNTER → 2022-01-18 10:05 | Outpatient (BNVA) | payer MEDICAID, SELFPAY | PROVIDERS: PCP Family Medicine; Visit Provider Urology | DX: N30.20 Other chronic cystitis without hematuria (principal); Z87.442 Personal history of urinary calculi | CPT/HCPCS: 51798; 99213 ==

== ENCOUNTER 2022-02-01 10:09 | Day surgery (SDC) | payer MEDICAID, SELFPAY ==
[2022-02-01] VITALS (16 sets, daily range): BP systolic 96–140; BP diastolic 57–94; PULSE 73–105; RESP 16–20; TEMP 36.3–36.8; O2SAT 92–100
[2022-02-01] MEDS: sodium chloride 0.9% 1,000 ML 30 ML IV (10:50)
[2022-02-01] MEDS: ipratropium-albuterol 3 mL Neb INHALATION (11:06)
--- NOTE | 2022-02-01 11:09 | ANES.PREANE2 ---
Pre-Anesthetic Assessment Height/Weight: Height 1.8 m Weight 136.078 kg Temp Pulse Resp BP Pulse Ox O2 Del Method 97.5 F L 101 H 18 122/83 97 02/01/22 10:25 02/01/22 10:25 02/01/22 10:25 02/01/22 10:25 02/01/22 10:25 02/01/22 10:33 Preop Diagnosis: Ventral hernias Operation Date: 02/01/22 12:40 Proposed Procedures p 51775 lap repair ventral hernia with mesh K43.2,K42.9(Not Applicable) - Harry Roa DO Familial anesthetic complications: none Was Beta Bo taken within 24 hours: N/A Was Clonidine taken within 24 hours: N/A Last intake: Intake Last Liquid Date 01/31/22 Last Liquid Time 23:00 Last Solid Date 01/31/22 Last Solid Time 23:00 Social Tobacco and No alcohol Exam alert, oriented x 3 and regular rate & rhythm Airway Submandibular: within normal limits Cervical ROM: within normal limits Mallampati: Class II Dentition: false Pulmonary Chronic Obstructive Pulmonary Disease (home O2 3L) and Sleep Apnea CV/HEM Hypertension GI Gastroesophageal Reflux Disease Metabolic Morbid Obesity Anesthetic Plan ASA status: 3 Anesthesia: General Medications/Allergies Home Medications Medication Instructions Recorded Confirmed Last Taken Type aspirin 81 mg chewable tablet 81 mg PO DAILY 09/19/19 01/29/22 01/29/22 History manual wheelchair #1 ea 10/03/19 01/18/22 Unknown Rx fluticasone 250 mcg-salmeterol 50 1 inh inhalation BID #60 ea 10/24/21 01/29/22 01/31/22 Rx mcg/dose blistr powdr for inhalation (Advair Diskus) amitriptyline 25 mg tablet 25 mg PO BEDTIME #90 tabs 12/09/21 01/29/22 01/31/22 Rx loperamide 2 mg capsule (Imodium 2 mg PO Q4H PRN Diarrhea 12/23/21 01/29/22 01/27/22 History A-D) ondansetron 4 mg disintegrating 4 mg PO Q8H PRN nausea and 12/23/21 01/29/22 01/26/22 Rx tablet vomiting #15 tabs ipratropium 0.5 mg-albuterol 3 mg 3 ml inhalation Q6H PRN shortness 11/14/22 12/16/22 12/15/22 Rx (2.5 mg base)/3 mL nebulization of breath or wheezing #180 mL soln albuterol sulfate 90 mcg/actuation 2 inh inhalation Q6H PRN shortness 12/29/21 01/29/22 01/31/22 Rx aerosol inhaler of breath or wheezing #18 grams gabapentin 600 mg tablet See Rx Instructions .Route 01/26/22 01/29/22 01/31/22 Rx .COMPLEX #30 tabs famotidine 20 mg tablet 20 mg PO BID 01/29/22 01/29/22 01/31/22 History Allergies Allergy/AdvReac Type Severity Reaction Status Date / Time ketorolac [From Toradol] Allergy Severe ALGY-Anaphy Verified 01/29/22 13:36 laxis Penicillins Allergy Severe ALGY-Anaphy Verified 01/29/22 13:36 laxis Sulfa (Sulfonamide Allergy Severe ALGY-Anaphy Verified 01/29/22 13:36 Antibiotics) laxis tetracycline Allergy Severe ALGY-Anaphy Verified 01/29/22 13:36 laxis lidocaine Allergy ALGY-Hives Verified 01/29/22 13:36 tramadol [From Ultram] Allergy ALGY-Difficulty Verified 01/29/22 13:36 Breathing Current Medications Generic Name Dose Route Start Last Admin Trade Name Freq PRN Reason Stop Dose Admin Sodium Chloride 1,000 mls @ 30 mls/hr 02/01/22 10:30 02/01/22 10:50 Sodium Chloride 0.9% IV 02/02/22 10:29 30 mls/hr .Q24H CINTHYA Administration PFSH Anesthesia Medical History (Updated 01/18/22 @ 10:53 by Hector Pearce MD) delivery delivered Chronic cystitis Community acquired pneumonia Family history of rectal cancer History of bipolar disorder History of hypertension Surgical History History of cholecystectomy History of hysterectomy History of knee surgery History of tonsillectomy Family History Mother , at age 78 COVID-19 Brother , at age 58 Cancer Colon Father , at age 45 Car occupant injured in traffic accident Other Hypertension Social History Smoking and tobacco status: current every day smoker cigarettes Packs smoked per day: 3 Years cigarettes smoked: 30 [ Other cigarette details: Currently smoking 0.5 ppd and vaping.] and e-cigarettes E-Cigarette Details: vaporizer device Quit status (tobacco): considering quitting Alcohol intake: never Adopted: No Lives independently: Yes Household members: spouse Marital status: Number of grandchildren: 2 Current occupational status: disabled History of recent travel: No Female Reproductive History Spontaneous abortions: No Data Anesthesia Cardiac Studies: No Data to Display
--- NOTE | 2022-02-01 14:39 | W.PM.OPSUD ---
Surgery/Procedure H&P Update DATE OF PROCEDURE: February 01, 2022 DATE H&P PERFORMED: 01/12/22 PREOP DIAGNOSIS: Ventral hernias PLANNED PROCEDURE: Operation Date: 02/01/22 12:40 Proposed Procedures p 40343 lap repair ventral hernia with mesh K43.2,K42.9(Not Applicable) - Harry Roa DO
--- NOTE | 2022-02-01 15:49 | PM.OP ---
Operative Report Date of procedure: February 01, 2022 Pre-op diagnosis: Preop Diagnosis incisional hernia Post-op diagnosis: same Procedure done: Laparoscopic repair of incisional hernia with mesh Implants: 6 inch round ventralight mesh Specimens removed/disposition: None Surgeon: Dr. Harry Roa DO Anesthesia: General Estimated blood loss (mL): 5 Complications: None apparent Brief History: This is a very pleasant 56-year-old female with an incisional hernia. Laparoscopic repair was indicated. The risks and benefits were explained and documented. Procedure: Patient was wheeled into the operative room and placed on the OR table in a supine position. Abdomen was inspected prepped and draped in usual sterile fashion. Time-out was performed and all present were in agreement. A 15 blade scalp was used to make a 5 millimeter incision left upper quadrant. A Veress needle was placed into the incision and intra-abdominal insufflation was brought to 15 millimeters of mercury. A 12 millimeter trocar was placed into the left lower quadrant. The energy but device was then used to cut out the hernia sac. A 6 inch ventralight mesh was placed into the abdomen and brought up through the umbilicus using an the Alexis-Shaniqua. The mesh was then tacked in place in a double crown fashion. The skeleton of the mesh was removed via the left lower quadrant. The hernia sac was then removed from the abdomen via the left lower quadrant and was not sent. The left lower quadrant port site was closed with an 0 Vicryl suture in a Alexis-Shaniqua in a [id number]-fttco fashion. Incisions were closed with 4 O Vicryl in a subcuticular interrupted fashion. Skin glue was applied. Patient tolerated the procedure well.
[2022-02-01] MEDS: HYDROmorphone 1 mg/mL INJ 1 mL 0.5 MG IVP (16:18)
[2022-02-01] MEDS: HYDROcodone-acetaminophen 7.5-325 mg Tablet 1 TAB PO (17:00)
--- NOTE | 2022-02-01 17:10 | ANE.PACU2 ---
Inpatient post-anesthesia follow up: Airway intact: Yes Vital signs: Temperature 98 F Pulse Rate 105 Respiratory Rate 16 Blood Pressure 129/57 Pulse Oximetry 95 Oxygen Delivery Me thod Nasal Cannula Oxygen Flow Rate 3 Fraction of Inspir ed Oxygen 3.0 Hydration adequate: Yes Nausea and vomiting: No Pain level: 5 Mental status: Baseline Additional Comments: Difficult pain control.
[2022-02-01] MEDS: ondansetron 2 mg/ML SDV 2 mL 4 MG IVP (17:31)
== END 2022-02-01 17:40 | disposition home or self-care (01) ==
PROVIDERS: PCP Family Medicine; Visit Provider Surgery
PROC: 0WQF4ZZ Repair Abdominal Wall, Percutaneous Endoscopic Approach (ICD-10-PCS; CPT 49654; principal; 2022-02-01 12:30)
DX: K43.2 Incisional hernia without obstruction or gangrene (principal); J44.9 Chronic obstructive pulmonary disease, unspecified; Z99.81 Dependence on supplemental oxygen; G47.30 Sleep apnea, unspecified; I10 Essential (primary) hypertension; K21.9 Gastro-esophageal reflux disease without esophagitis; E66.01 Morbid (severe) obesity due to excess calories; Z68.41 Body mass index [BMI] 40.0-44.9, adult; Z79.82 Long term (current) use of aspirin; F17.210 Nicotine dependence, cigarettes, uncomplicated
CPT/HCPCS: 49654; 94640; J0131; J0330; J1100; J1170; J2250; J2370; J2405; J2704; J2710; J3010; J3370; J3490; J7030; J7040

== ENCOUNTER 2022-02-12 11:22 | Emergency (ER) | payer MEDICAID, SELFPAY ==
[2022-02-12 11:35] VITALS: BP 103/82; PULSE 105; RESP 20; TEMP 36.7; O2SAT 97
--- NOTE | 2022-02-12 11:51 | ED_ITS ---
HPI - Abdominal Pain General: Chief Complaint: Abdominal Pain Stated Complaint: post op pain in abd, fever Time Seen by Provider: 02/12/22 11:38 Source: patient Mode of arrival: ambulatory History of Present Illness: 56-year-old female presents emergency room complaining of abdominal pain and fever. Patient underwent a laparoscopic incisional hernia repair on 1218 at [facility]. Patient states 2 days ago she was leaning over to pick something up felt a popping tearing sensation in her abdomen and started having significant discomfort. She also states that she has been having increasing abdominal pain her last bowel movement was yesterday morning. She has bloating and discomfort. She reports a temperature at home of up to 101. She has some moderate dysuria as well. She relates being chronically on oxygen however on arrival here on room air she is at 96%. She denies any recent upper respiratory symptoms, no recent worsening of her COPD. MD elicited complaint: abdominal pain Onset (ago): minute(s) Pain Consistency: constant Location: Periumbilical (Left incisional hernia) Severity: severe Quality: sharp Exacerbating factors: nothing Relieving factors: nothing Associated Symptoms: Reports bloating, GI cramping, nausea and poor appetite; Denies anorexia, belching, change in bowel habits, change in stool character, chills, coffee ground emesis, constipation, diarrhea, dyspepsia, dysuria, excessive flatus, fever(s), heartburn, hematochezia, hematuria, hematemesis, fecal incontinence, loose stools, melena and vomiting Review of Systems Const: Denies: fever(s) or chills ENMT: Denies: throat pain, ear or mastoid pain, nasal discharge or nasal congestion Card: Denies: chest pain, edema, dyspnea on exertion or orthopnea Resp: Denies: dyspnea, productive cough or non-productive cough GI: Reports: abdominal pain, nausea, bloating and GI cramping; Denies: vomiting, hematemesis, coffee ground emesis, heartburn, diarrhea, constipation, belching, excessive flatus, fecal incontinence, change in bowel habits, change in stool character, hematochezia or melena : Denies: dysuria or hematuria Skin/Breast: Denies: rash or pruritus PFS ED PFSH: Medical History delivery delivered Chronic cystitis Community acquired pneumonia Family history of rectal cancer History of bipolar disorder History of hypertension Surgical History History of cholecystectomy History of hysterectomy History of knee surgery History of tonsillectomy Family History Mother , at age 78 COVID-19 Brother , at age 58 Cancer Colon Father , at age 45 Car occupant injured in traffic accident Other Hypertension Social History Smoking and tobacco status: current every day smoker cigarettes Packs smoked per day: 3 Years cigarettes smoked: 30 [ Other cigarette details: Currently smoking 0.5 ppd and vaping.] and e-cigarettes E-Cigarette Details: vaporizer device Quit status (tobacco): considering quitting Alcohol intake: never Adopted: No Lives independently: Yes Household members: spouse Marital status: Number of grandchildren: 2 Current occupational status: disabled History of recent travel: No Female Reproductive History: Spontaneous abortions: No Physical Exam Const: GENERAL APPEARANCE: cooperative ORIENTATION/CONSCIOUSNESS: Yes awake, Yes oriented to person, Yes oriented to place and Yes oriented to time HENMT: COMMON NORMALS: normocephalic, atraumatic and hearing grossly normal bilaterally HEAD & SCALP: normocephalic and atraumatic Resp: COMMON NORMALS: normal respiratory effort, No retractions, No use of accessory muscles and clear to auscultation bilaterally AUSCULTATION: clear to auscultation bilaterally Cardio: COMMON NORMALS: regular rhythm and No murmurs present (Cardio) RATE: tachycardic RHYTHM: regular rhythm GI: COMMON NORMALS: No hepatosplenomegaly present AUSCULTATION: Yes normoactive bowel sounds PALPATION: Yes Tenderness to palpation present (GI) (In the left of the midline there is a palpably swollen area 6 to 8 inches r), No Guarding due to palpation present (GI) and Yes No hepatosplenomegaly present Extremity: COMMON NORMALS: normal to inspection, capillary refill normal, no clubbing, cyanosis or edema, no calf tenderness and no pedal edema Neuro: SENSORIUM/ORIENTATION: Yes oriented to person, Yes oriented to place and Yes oriented to time Skin: COMMON NORMALS: no rashes or lesions noted GENERAL SKIN EXAM: no rashes or lesions noted Course Vital Signs: Vital signs: Vital Signs Temperature 98.1 F 02/12/22 11:35 Pulse Rate 81 02/12/22 12:41 Respiratory Rate 18 02/12/22 12:41 Blood Pressure 112/66 02/12/22 12:41 Pulse Oximetry 93 02/12/22 12:41 Oxygen Delivery Me thod 02/12/22 12:41 MDM - Abdominal Pain Medical Decision Making CT abdomen shows a seroma possible hematoma but no recurrence of the hernia. Discussed Dr. Roa will follow up with patient in the office continues to improve his postop instructions and follow-up schedule. Medical Records I reviewed the patient's medical records. Lab Data I reviewed the patient's lab results. 02/12/22 11:40 02/12/22 11:40 Labs/Radiology: Radiology Impressions Abdomen/Pelvis CT 02/12/22 12:04 IMPRESSION: 1. Fluid collection measuring 5.9 x 3.5 cm in the area of recent hernia repair. No evidence of herniated bowel. 2. Fluid collection likely represents postoperative hematoma/seroma. Recommend correlation. 3. No other changes compared to previous. Laboratory Results WBC 12.9 10^3/uL (4.0-10.0) H 02/12/22 11:40 RBC 4.75 10^6/uL (4.1-5.3) 02/12/22 11:40 Hgb 13.9 g/dL (11.5-15.3) 02/12/22 11:40 Hct 43.8 % (37.0-47.0) 02/12/22 11:40 MCV 92.2 fl (81-99) 02/12/22 11:40 MCH 29.3 pg (28.0-34.0) 02/12/22 11:40 MCHC 31.7 g/dL (30.0-36.0) 02/12/22 11:40 RDW 12.7 % (12.1-15.1) 02/12/22 11:40 Plt Count 305 10^3/cmm (130-400) 02/12/22 11:40 MPV 10.0 fL (7.4-10.4) 02/12/22 11:40 Neut % (Auto) 60.6 % 02/12/22 11:40 Lymph % (Auto) 29.6 % 02/12/22 11:40 [place] % (Auto) 6.8 % 02/12/22 11:40 Eos % (Auto) 1.7 % 02/12/22 11:40 Baso % (Auto) 0.5 % 02/12/22 11:40 Neut # (Auto) 7.78 10^3/uL (1.8-7.7) H 02/12/22 11:40 Lymph # (Auto) 3.8 10^3/uL (0.8-4.8) 02/12/22 11:40 [place] # (Auto) 0.9 10^3/uL (0.2-0.9) 02/12/22 11:40 Eos # (Auto) 0.2 10^3/uL (0.0-0.8) 02/12/22 11:40 Baso # (Auto) 0.1 10^3/uL (0.0-0.1) 02/12/22 11:40 Nucleated RBC % (auto) 0 % 02/12/22 11:40 Nucleated RBCs # 0.0 /100WBC 02/12/22 11:40 Sodium 137 mmol/L (136-145) 02/12/22 11:40 Potassium 3.7 mmol/L (3.5-5.1) 02/12/22 11:40 Chloride 99 mmol/L (98-107) 02/12/22 11:40 Carbon Dioxide 27 mmol/L (22-29) 02/12/22 11:40 Anion Gap 14.7 (5-19) 02/12/22 11:40 BUN 12 mg/dL (6-20) 02/12/22 11:40 Creatinine 0.5 mg/dL (0.5-0.9) 02/12/22 11:40 GFR Calculation 127.2 mL/min (90-130) 02/12/22 11:40 Glucose 125 mg/dL (65-115) H 02/12/22 11:40 Calculated Osmolality 285 mOsm/kg (285-295) 02/12/22 11:40 Lactic Acid 1.7 mmol/L (0.5-2.2) 02/12/22 11:40 Calcium 9.4 mg/dL (8.5-10.5) 02/12/22 11:40 Total Bilirubin 0.3 mg/dL (0.15-1.2) 02/12/22 11:40 AST 24 U/L (0-32) 02/12/22 11:40 ALT 11 U/L (0-33) 02/12/22 11:40 Alkaline Phosphatase 78 U/L (35-105) 02/12/22 11:40 Total Protein 7.6 g/dL (6.6-8.7) 02/12/22 11:40 Albumin 4.0 g/dL (3.5-5.2) 02/12/22 11:40 Globulin 3.6 g/dL (1.3-4.6) 02/12/22 11:40 Discharge Plan Discharge Patient Disposition: Home Clinical Impression: Incisional hernia, Seroma after procedure Condition: Stable Prescriptions: New hydrocodone-acetaminophen 5-325 mg tablet 1 tab PO Q6H PRN (Reason: pain) Qty: 15 0RF No Action (DME) manual wheelchair See Rx Instructions .Route .MEDSUPPLY Qty: 1 0RF Rx Instructions: As directed amitriptyline 25 mg tablet 25 mg PO BEDTIME Qty: 90 1RF ipratropium-albuterol 0.5 mg-3 mg(2.5 mg base)/3 mL solution for nebulization 3 ml inhalation Q6H PRN (Reason: shortness of breath or wheezing) Qty: 180 3RF albuterol sulfate 90 mcg/actuation HFA aerosol inhaler 2 inh INHALATION Q6H PRN (Reason: shortness of breath or wheezing) Qty: 18 3RF ondansetron 4 mg tablet,disintegrating 4 mg PO Q8H PRN (Reason: nausea and vomiting) Qty: 15 0RF ciprofloxacin HCl 500 mg tablet 500 mg PO BID Qty: 60 6RF aspirin 81 mg Tablet,Chewable 81 mg PO DAILY fluticasone propion-salmeterol [Advair Diskus] 250-50 mcg/dose blister with device 1 inh inhalation BID Qty: 60 1RF loperamide [Imodium A-D] 2 mg Capsule 2 mg PO Q4H PRN (Reason: Diarrhea) famotidine 20 mg Tablet 20 mg PO BID hydrocodone-acetaminophen 7.5-325 mg tablet 1 tab PO Q6H PRN (Reason: pain) Qty: 20 0RF gabapentin 600 mg tablet 300 mg PO BID Discharge Orders: Discharge ED (Routine); Ordered 02/12/22 Ordered By: Dheeraj Suarez Referrals: Benson Deleon, [Primary Care Provider] - Discharge Diet: Usual diet Discharge Activity: Limit activity as instructed Patient Instructions: Opioid Safety, Pain Management Activity Restrictions/Additional Instructions: You were seen today for incisional pain. The CT shows a seroma which is not unusual after a procedure like this. Recommend follow Dr. Roa's postop instructions strictly especially the lifting restriction of 5 pounds. For reference a half a gallon of milk is approximately 5 pounds. You can use the prescribed pain medications as needed. Follow-up with Dr. Roa in his office as previously instructed. Coding Level of Care Code ED Apprentice Instrument Technician for [place] Fwd Exam Detailed
[2022-02-12] MEDS: sodium chloride 0.9% 1,000 ML 999 ML IV (11:56)
[2022-02-12] MEDS: ondansetron 2 mg/ML SDV 2 mL 4 MG IVP (11:57)
[2022-02-12 11:58] VITALS: RESP 18; O2SAT 92
[2022-02-12] MEDS: morphine 4 mg/mL SDV 1 mL IVP (11:58)
[2022-02-12 11:59] LABS: Basophils # 0.1 10^3/uL (0.0-0.1); Basophils % 0.5 %; Eosinophils # 0.2 10^3/uL (0.0-0.8); Eosinophils % 1.7 %; Hematocrit 43.8 % (37.0-47.0); Hemoglobin 13.9 g/dL (11.5-15.3); Lymphocytes # 3.8 10^3/uL (0.8-4.8); Lymphocytes % 29.6 %; Mean Corpuscular HGB Conc 31.7 g/dL (30.0-36.0); Mean Corpuscular Hemoglobin 29.3 pg (28.0-34.0); Mean Corpuscular Volume 92.2 fl (81-99); Monocytes # 0.9 10^3/uL (0.2-0.9); Monocytes % 6.8 %; Neutrophils # 7.78 10^3/uL (1.8-7.7); Neutrophils % 60.6 %; Nucleated Red Blood Cells % 0 %; Platelet Count 305 10^3/cmm (130-400); Red Blood Count 4.75 10^6/uL (4.1-5.3); Red Cell Distribution Width 12.7 % (12.1-15.1); White Blood Count 12.9 10^3/uL (4.0-10.0)
--- NOTE | 2022-02-12 12:04 | CT_ITS ---
WS: [id number] CT ABDOMEN PELVIS TECHNIQUE: Noncontrast CT of the abdomen and pelvis with coronal and sagittal reformatted images. CLINICAL INFORMATION: Abdominal pain COMPARISON: CT January 14, 2022 DLP: 1377.[address] scans at [facility] use at least one of these dose optimization techniques: automated e xposure control; mA and/or kV adjustment per patient size (includes targeted exams where dose is matc hed to clinical indication); or iterative reconstruction. FINDINGS:Recent postoperative changes umbilical hernia repair with fluid collection in the hernia bed . Fluid collection measures 5.9 x 3.5 CM. This could represent postoperative seroma, hematoma, or inf ection. Recommend correlation for cellulitis. Mild induration in the subcutaneous soft tissues anteri or abdominal wall from recent surgery. No evidence of herniated bowel Diffuse fatty infiltration liver. Hepatomegaly. Prior cholecystectomy and hysterectomy. Stable RIGHT adrenal adenoma measuring 2.5 cm. Stable LEFT renal cyst measuring 4.5 cm. Noncalcified nodule RIGHT lower lobe measuring 6 mm is stable compared to January 14, 2022. Normal GE junction. Normal noncont rast spleen. LEFT adrenal gland is normal. Noncontrast pancreas appears normal. Normal caliber abdom inal aorta. No evidence of high-grade small or large bowel obstruction. No free fluid in the abdomen or pelvis. N ormal lumbar spine. . CT/CT abdomen pelvis wo con [id number] IMPRESSION: 1. Fluid collection measuring 5.9 x 3.5 cm in the area of recent hernia repair . No evidence of herniated bowel. 2. Fluid collection likely represents postoperative hematoma/seroma. Recommend correlation. 3. No other changes compared to previous.
[2022-02-12 12:10] LABS: Lactic Sepsis W/Reflex 1.7 mmol/L (0.5-2.2)
[2022-02-12 12:11] LABS: Alanine Aminotransferase 11 U/L (0-33); Alkaline Phosphatase 78 U/L (35-105); Anion Gap 14.7 (5-19); Aspartate Amino Transferase 24 U/L (0-32); Blood Urea Nitrogen 12 mg/dL (6-20); Calcium 9.4 mg/dL (8.5-10.5); Carbon Dioxide 27 mmol/L (22-29); Chloride 99 mmol/L (98-107); Globulin 3.6 g/dL (1.3-4.6); Glomerular Filtration Rate 127.2 mL/min (90-130); Glucose 125 mg/dL (65-115); Osmolality Calculated 285 mOsm/kg (285-295); Potassium 3.7 mmol/L (3.5-5.1); Sodium 137 mmol/L (136-145); Total Bilirubin 0.3 mg/dL (0.15-1.2); Total Protein 7.6 g/dL (6.6-8.7)
[2022-02-12 12:41] VITALS: BP 112/66; PULSE 81; RESP 18; O2SAT 93
[2022-02-12] MEDS: HYDROcodone-acetaminophen 5-325 mg Tablet 2 TAB PO (13:47)
== END 2022-02-12 13:59 | disposition home or self-care (01) ==
PROVIDERS: Emergency Provider Family Medicine; PCP Family Medicine
DX: K43.2 Incisional hernia without obstruction or gangrene (principal); M96.842 Postprocedural seroma of a musculoskeletal structure following a musculoskeletal system procedure; Z79.82 Long term (current) use of aspirin; F17.210 Nicotine dependence, cigarettes, uncomplicated; I10 Essential (primary) hypertension
CPT/HCPCS: 74176; 80053; 83605; 85025; 96361; 96374; 96375; 99285; J2270; J2405; J7030

== ENCOUNTER → 2022-02-25 13:12 | Outpatient (BNVA) | payer MEDICAID, SELFPAY | PROVIDERS: PCP Family Medicine; Visit Provider Surgery | DX: Z98.890 Other specified postprocedural states (principal); Z87.19 Personal history of other diseases of the digestive system | CPT/HCPCS: 99024 ==

== ENCOUNTER 2022-05-15 15:28 | Emergency (ER) | payer MEDICAID, SELFPAY ==
[2022-05-15 15:40] VITALS: BP 134/84; PULSE 103; RESP 18; TEMP 36.5; O2SAT 96
--- NOTE | 2022-05-15 15:43 | W.ED.FALL ---
HPI - Fall General: Chief Complaint: Fall Stated Complaint: shoulder/back pain post fall two day ago Time Seen by Provider: 05/15/22 15:41 History of Present Illness: Ms. Baca is a 56-year-old lady with complex past medical history including chronic back pain, history of bilateral shoulder pain, frequent falls presenting to the emergency department for fall with shoulder and knee pain. She reports fall occurred 2 days ago. She thought her family member was going to fall so she stepped suddenly towards them and stumbled falling forward on her knees and then catching herself with her hands. She reports immediately having pain and since that time has had continued pain despite Advil at home. Moderate in intensity and worse with palpation and range of motion. No new numbness or tingling. No head strike or loss of consciousness. No other specific changes in health, exacerbating, or alleviating factors identified. Onset (ago): day(s) Fall from: standing Loss of consciousness: None Prolonged down time: no Context: tripped/slipped Severity: moderate Quality: sharp and aching Associated symptoms-after fall: Reports no associated symptoms Review of Systems General: Reports: 10 or more systems reviewed and unremarkable except in HPI and below PFSH ED PFSH: Medical History delivery delivered Chronic cystitis Community acquired pneumonia Family history of rectal cancer History of bipolar disorder History of hypertension Surgical History History of cholecystectomy History of hysterectomy History of incisional hernia repair History of knee surgery History of tonsillectomy Family History Mother , at age 78 COVID-19 Brother , at age 58 Cancer Colon Father , at age 45 Car occupant injured in traffic accident Other Hypertension Social History Smoking and tobacco status: current every day smoker cigarettes Packs smoked per day: 3 Years cigarettes smoked: 30 [ Other cigarette details: Currently smoking 0.5 ppd and vaping.] and e-cigarettes E-Cigarette Details: vaporizer device Quit status (tobacco): considering quitting Alcohol intake: never Adopted: No Lives independently: Yes Household members: spouse Marital status: Number of grandchildren: 2 Current occupational status: disabled Female Reproductive History: Spontaneous abortions: No Physical Exam Const: COMMON NORMALS: alert GENERAL APPEARANCE: cooperative and well developed HENMT: COMMON NORMALS: normocephalic and atraumatic HEAD & SCALP: normocephalic and atraumatic Eye: COMMON NORMALS: conjunctivae normal CONJUNCTIVA: Yes conjunctivae normal SCLERA: sclerae normal Neck/C-Spine: COMMON NORMALS: full ROM and supple GENERAL: Yes trachea midline CERVICAL SPINE: No pain with cervical ROM and No Cervical spine tenderness Resp: COMMON NORMALS: normal respiratory effort EFFORT & INSPECTION: Yes able to speak in complete sentences Cardio: COMMON NORMALS: regular rate and regular rhythm RATE: regular rate RHYTHM: regular rhythm GI: COMMON NORMALS: Soft to palpation PALPATION: Yes Soft to palpation and No Tenderness to palpation present (GI) PERCUSSION: normal to percussion Back/Pelvis: OTHER: Mid thoracic and lumbar region tenderness to palpation, reports this is chronic. Extremity: NARRATIVE EXTREMITY EXAM: Bilateral shoulder structures generally tender to palpation, no obvious deformity. Distal CMS intact. Left knee anterior and lateral tenderness to palpation without deformity. CMS intact extensor mechanism intact. GENERAL: Yes normal exam except as noted and No edema Neuro: COMMON NORMALS: moves all extremities SENSORIUM/ORIENTATION: Yes alert and No Orientation impaired Psych: COMMON NORMALS: mental status grossly normal and Normal thought process present THOUGHT PROCESS: Normal thought process present Course Vital Signs: Vital signs: Vital Signs Temperature 97.7 F 05/15/22 15:40 Pulse Rate 101 H 05/15/22 17:59 Respiratory Rate 17 05/15/22 17:59 Blood Pressure 142/72 05/15/22 17:59 Pulse Oximetry 93 05/15/22 17:59 Oxygen Delivery Me thod Room Air 05/15/22 17:59 MDM - Fall Medical Decision Making 56-year-old lady presenting with continued pain after a fall. Exam as above. Given reported clinical history and physical exam findings there is no indication for laboratory studies at this time. X-rays demonstrate osteoarthritis, no definitive acute fracture. On thoracic spine x-ray there is a questionable abnormality which warrants CT imaging. CT with no thoracic spine fracture identified. Thyroid abnormality and incidental findings discussed with patient. Patient treated with antiemetic, muscle laxer, analgesia and feels improved. Most likely etiology of patient's symptoms is musculoskeletal in nature. This can appropriately be followed up in outpatient setting. The results of ED evaluation were discussed with the patient including prescriptions and/or symptomatic cares (if applicable) including appropriate and responsible use, followup plan, and return precautions. The patient verbalized understanding and felt safe for discharge. Medical Records I reviewed the patient's medical records. Lab Data I reviewed the patient's lab results. Radiology Impressions Knee X-Ray 05/15/22 15:56 IMPRESSION: 1. No fracture is identified. 2. Osteoarthritis Shoulder X-Ray 05/15/22 15:56 IMPRESSION: No acute findings. Thoracic Spine X-Ray 05/15/22 15:56 IMPRESSION: 1. Question of left paraspinous bulge which could indicate occult fracture. Clinical correlation follow-up suggested. 2. Moderate degenerative changes throughout the thoracic spine. Thoracic Spine CT 05/15/22 17:02 IMPRESSION: 1. Degenerative changes in the thoracic spine. 2. No thoracic spine fracture is identified. 3. Enlarged right lobe of thyroid 4. Old granulomatous disease 5. Ectasia of the ascending thoracic aorta. Discharge Plan Discharge Patient Disposition: Home Clinical Impression: Fall, Acute pain of left knee, Acute pain of both shoulders, Multiple contusions, Degenerative disc disease Condition: Stable Prescriptions: New oxycodone 5 mg tablet 5 mg PO Q4H PRN (Reason: pain) Qty: 10 0RF methocarbamol 750 mg tablet 750 mg PO Q8H PRN (Reason: muscle pain) Qty: 10 0RF No Action (DME) manual wheelchair See Rx Instructions .Route .MEDSUPPLY Qty: 1 0RF Rx Instructions: As directed hydrocodone-acetaminophen 7.5-325 mg tablet 1 tab PO Q6H PRN (Reason: pain) 5 Days Qty: 20 0RF gabapentin 600 mg tablet 600 mg PO BID Qty: 60 5RF escitalopram oxalate [Lexapro] 10 mg tablet 10 mg PO DAILY Qty: 30 5RF albuterol sulfate 90 mcg/actuation HFA aerosol inhaler 2 inh INHALATION Q6H PRN (Reason: shortness of breath or wheezing) Qty: 18 3RF ondansetron 4 mg tablet,disintegrating 4 mg PO Q8H PRN (Reason: nausea and vomiting) Qty: 15 0RF ciprofloxacin HCl 500 mg tablet 500 mg PO BID Qty: 60 6RF ipratropium-albuterol 0.5 mg-3 mg(2.5 mg base)/3 mL solution for nebulization 3 ml inhalation Q6H PRN (Reason: shortness of breath or wheezing) Qty: 180 3RF famotidine 20 mg tablet See Rx Instructions .ROUTE .COMPLEX Qty: 60 1RF Dose Instruction: TAKE 1 TABLET BY MOUTH TWICE A DAY Rx Instructions: TAKE 1 TABLET BY MOUTH TWICE A DAY amitriptyline 50 mg tablet 50 mg PO BEDTIME Qty: 90 1RF aspirin 81 mg Tablet,Chewable 81 mg PO DAILY fluticasone propion-salmeterol [Advair Diskus] 250-50 mcg/dose blister with device 1 inh inhalation BID Qty: 60 1RF loperamide [Imodium A-D] 2 mg Capsule 2 mg PO Q4H PRN (Reason: Diarrhea) methocarbamol 750 mg tablet 750 mg PO TID PRN (Reason: muscle spasms and pain) Qty: 20 0RF ondansetron 4 mg tablet,disintegrating 4 mg PO Q8H PRN (Reason: nausea and vomiting) Qty: 20 0RF Discharge Orders: Discharge ED (Routine); Ordered 05/15/22 Ordered By: Daniel Gonzalez Referrals: Benson Deleon DO [Primary Care Provider] - Discharge Diet: Usual diet Discharge Activity: Increase activity as tolerated Patient Instructions: Knee Pain (ED), P.R.I.C.E. Treatment (ED), Degenerative Disc Disease (ED), Shoulder Pain (ED), Opioid Safety Activity Restrictions/Additional Instructions: Thank you for visiting the emergency department. You were seen and evaluated for fall with continued pain. No acute bony fracture was identified. As discussed you do have degenerative changes in your spine. I believe that the most likely cause of your symptoms is related to soft tissue injury/contusions and this should improve in the next few days. You may use [id number] medications such as acetaminophen and ibuprofen for pain however please do not exceed the daily recommended dosage as listed on the packaging and please keep in mind that many namebrand medications contain the same active ingredients. Please avoid these medications if previously instructed to do so by another physician due to other underlying medical condition. I will prescribe oxycodone for pain that is not controlled with other measures. Use this cautiously as it is an opioid. Do not combine it with other sedating medications or substances. Do not operate machinery or drive while taking this medication. Please have somebody watch you closely for signs of oversedation. Please follow-up with your primary care provider. Incidentally on imaging you were found to have an enlarged right lobe of the thyroid. Please follow-up with your primary care provider regarding this. You may require ultrasound in the outpatient setting for further evaluation. Return to the emergency department for anything that you are concerned about and feel needs emergency department evaluation. Coding Level of Care Code ED Management Scientist for [facility]
--- NOTE | 2022-05-15 15:56 | XRR_ITS ---
PROCEDURE INFORMATION: Exam: XR Right Shoulder Exam date and time: 05/15/2022 4:07 PM Age: 56 years old Clinical indication: Injury or trauma; Fall; Blunt trauma (contusions or hematomas); Shoulder; Bilateral; Additional info: Fall, shoulder pain TECHNIQUE: Imaging protocol: Radiologic exam of the right shoulder. Views: 2 or more views. COMPARISON: CR (CHEST, ) 10/24/2021 1:33 PM FINDINGS: Bones/joints: Normal. Soft tissues: Normal. XR/XR shoulder RT min 2V* [id number] IMPRESSION: No acute findings.
--- NOTE | 2022-05-15 15:56 | XRR_ITS ---
PROCEDURE INFORMATION: Exam: XR Left Shoulder Exam date and time: 05/15/2022 4:07 PM Age: 56 years old Clinical indication: Injury or trauma; Fall; Blunt trauma (contusions or hematomas); Shoulder; Bilateral; Additional info: Fall, shoulder pain TECHNIQUE: Imaging protocol: Radiologic exam of the left shoulder. Views: 2 or more views. COMPARISON: CR (CHEST, ) 10/24/2021 1:33 PM FINDINGS: Bones/joints: Normal. Soft tissues: Normal. XR/XR shoulder LT min 2V* [id number] IMPRESSION: No acute findings.
--- NOTE | 2022-05-15 15:56 | XRR_ITS ---
PROCEDURE INFORMATION: Exam: XR Left Knee Exam date and time: 05/15/2022 4:07 PM Age: 56 years old Clinical indication: Injury or trauma; Fall; Blunt trauma; Knee; Left; Additional info: Fall, anterior lateral knee pain TECHNIQUE: Imaging protocol: Radiologic exam of the left knee. Views: 3 views. COMPARISON: No relevant prior studies available. FINDINGS: Bones/joints: There are osteoarthritic changes of the left knee with joint space narrowing more medially than laterally and spurring from the joint margins. There is also spurring from the upper lower poles of the patella. No fracture is identified. Soft tissues: Normal. XR/XR knee LT 3V* [id number] IMPRESSION: 1. No fracture is identified. 2. Osteoarthritis
--- NOTE | 2022-05-15 15:56 | XRR_ITS ---
PROCEDURE INFORMATION: Exam: XR Thoracic Spine Exam date and time: 05/15/2022 4:07 PM Age: 56 years old Clinical indication: Injury or trauma; Fall; Blunt trauma (contusions or hematomas); Additional info: Fall, back pain TECHNIQUE: Imaging protocol: Radiologic exam of the thoracic spine. Views: 3 views. COMPARISON: CR (CHEST, ) 10/24/2021 1:33 PM FINDINGS: Bones/joints: There are moderate degenerative changes in the thoracic spine with bridging anterior osteophytes at multiple levels. No fracture is identified. There is however some bulging of the paraspinous stripe on the left near the T8 level in 1 could not exclude some paraspinous hemorrhage. Correlation with clinical findings suggested. If this corresponds with the site of pain further evaluation such as with CT scan recommended. Soft tissues: See Bones/joints finding. XR/XR thoracic spine 3V* [id number] IMPRESSION: 1. Question of left paraspinous bulge which could indicate occult fracture. Clinical correlation follow-up suggested. 2. Moderate degenerative changes throughout the thoracic spine.
[2022-05-15 16:01] VITALS: RESP 16
[2022-05-15] MEDS: oxyCODONE 5 mg IR Tab/Cap PO (16:01)
[2022-05-15] MEDS: acetaminophen 500 mg Tablet 1000 MG PO (16:01)
[2022-05-15] MEDS: ondansetron 4 MG Tablet PO (16:47)
--- NOTE | 2022-05-15 17:02 | CTR_ITS ---
PROCEDURE INFORMATION: Exam: CT Thoracic Spine Without Contrast Exam date and time: 05/15/2022 5:11 PM Age: 56 years old Clinical indication: Injury or trauma; Fall; Blunt trauma (contusions or hematomas); Additional info: Fall, back pain, abnormal xray TECHNIQUE: Imaging protocol: Computed tomography of the thoracic spine without contrast. Radiation optimization: All CT scans at this facility use at least one of these dose optimization techniques: automated exposure control; mA and/or kV adjustment per patient size (includes targeted exams where dose is matched to clinical indication); or iterative reconstruction. REPORTING DATA: Count of CT and Cardiac NM exams in prior 12 months: This patient has received 8 known CTs and 0 known cardiac nuclear medicine studies in the 12 months prior to the current study. COMPARISON: CR (CHEST, ) 05/15/2022 4:07 PM RADIATION DOSE METRICS: Total DLP (mGy-cm): 1661.21 FINDINGS: Bones/joints: There are degenerative changes throughout the thoracic spine with prominent bridging anterolateral osteophytes at multiple levels. No fracture is identified. There is no paraspinous hematoma. Soft tissues: The soft tissue bulge along the left side of the spine described on prior plain radiographs is likely due to a prominent jun azygous vein. Vasculature: Descending thoracic aorta is unremarkable. There may be some ectasia of the ascending thoracic aorta. Lymph nodes: Normal-sized mediastinal lymph nodes are noted. There are calcified right hilar and subcarinal lymph nodes in keeping with old granulomatous disease. Thyroid: Right lobe of the thyroid is enlarged with intrathoracic extension. There is no discrete thyroid mass identified. Consider further evaluation with non urgent thyroid ultrasound. CT/CT thoracic spin wo con* [id number] IMPRESSION: 1. Degenerative changes in the thoracic spine. 2. No thoracic spine fracture is identified. 3. Enlarged right lobe of thyroid 4. Old granulomatous disease 5. Ectasia of the ascending thoracic aorta.
[2022-05-15 17:30] VITALS: RESP 15
[2022-05-15] MEDS: morphine 4 mg/mL SDV 1 mL IM (17:30)
[2022-05-15 17:59] VITALS: BP 142/72; PULSE 101; RESP 17; O2SAT 93
[2022-05-15] MEDS: orphenadrine 30 mg/mL Inj 2 mL 60 MG IM (18:08)
== END 2022-05-15 18:21 | disposition home or self-care (01) ==
PROVIDERS: Emergency Provider Emergency Medicine; PCP Family Medicine
DX: M25.512 Pain in left shoulder (principal); M25.511 Pain in right shoulder; M25.562 Pain in left knee; Z79.82 Long term (current) use of aspirin; M51.34 Other intervertebral disc degeneration, thoracic region; T14.8XXA Other injury of unspecified body region, initial encounter; F17.210 Nicotine dependence, cigarettes, uncomplicated; I10 Essential (primary) hypertension; W19.XXXA Unspecified fall, initial encounter
CPT/HCPCS: 72072; 72128; 73030; 73562; 96372; 99285; J2270; J2360; Q0162

== ENCOUNTER 2022-05-26 16:20 | Emergency (ER) | payer MEDICAID, SELFPAY ==
[2022-05-26 16:47] VITALS: BP 141/52; PULSE 61; RESP 16; TEMP 36.8; O2SAT 96; BMI 48.8
--- NOTE | 2022-05-26 17:32 | XRR_ITS ---
PROCEDURE INFORMATION: Exam: XR Right Shoulder Exam date and time: 05/26/2022 5:38 PM Age: 56 years old Clinical indication: Injury or trauma; Fall; Additional info: Fall with shoulder pain TECHNIQUE: Imaging protocol: Radiologic exam of the right shoulder. Views: 2 or more views. COMPARISON: CR (CHEST, ) 05/15/2022 4:07 PM FINDINGS: Bones/joints: No fracture or dislocation is seen about the right shoulder. No abnormal widening or separation of the AC joint. Mild hypertrophic bony change about the greater tuberosity, unchanged from prior exam. No abnormal soft tissue calcification is seen about the shoulder joint. Soft tissues: See Bones/joints finding. XR/XR shoulder RT min 2V* [id number] IMPRESSION: No fracture or dislocation.
--- NOTE | 2022-05-26 17:32 | XRR_ITS ---
PROCEDURE INFORMATION: Exam: XR Left Knee Exam date and time: 05/26/2022 5:44 PM Age: 56 years old Clinical indication: Pain; Knee; Left; Additional info: Fall with knee pain TECHNIQUE: Imaging protocol: Radiologic exam of the left knee. Views: 3 views. COMPARISON: CR (LOW EXM, ) 05/15/2022 4:07 PM FINDINGS: Bones/joints: No fracture or dislocation is seen. Degenerative change noted, with moderate joint space narrowing of the medial femoral compartment and mild hypertrophic bony changes about the left knee. No significant suprapatellar fullness or effusion. Soft tissues: No abnormal soft tissue calcification is seen. Other findings: No significant change with prior exam. XR/XR knee LT 3V* [id number] IMPRESSION: 1. No fracture is seen. 2. Degenerative change or osteoarthritis, particularly medial femoral compartment.
--- NOTE | 2022-05-26 17:32 | XRR_ITS ---
PROCEDURE INFORMATION: Exam: XR Left Shoulder Exam date and time: 05/26/2022 5:42 PM Age: 56 years old Clinical indication: Injury or trauma; Fall; Additional info: Fall with shoulder pain TECHNIQUE: Imaging protocol: Radiologic exam of the left shoulder. Views: 2 or more views. COMPARISON: CR (CHEST, ) 05/15/2022 4:07 PM FINDINGS: Bones/joints: No fracture or dislocation is seen about the left shoulder. No abnormal widening or separation of the AC joint. Osseous structures show no acute abnormality. No abnormal soft tissue calcification is seen about the shoulder joint. Soft tissues: See Bones/joints finding. Other findings: No significant change with prior exam. XR/XR shoulder LT min 2V* [id number] IMPRESSION: No fracture or dislocation.
--- NOTE | 2022-05-26 17:50 | ED_ITS ---
HPI - Fall General: Chief Complaint: Fall Stated Complaint: fall, bilateral shoulder and left knee pain Time Seen by Provider: 05/26/22 17:16 History of Present Illness: Patient is a 56-year-old female who comes to the ED with left knee and bilateral shoulder pain. Patient had fall 3 days ago. Denies any head trauma or loss of consciousness. Patient says she tripped and fell forward and caught herself with her arms extended out. Her left knee did hit the ground as well. She is having 10 out of 10 bilateral shoulder pain and left knee pain. Any weightbearing on left leg causes worsening pain and any movement of bilateral arms causes worsening shoulder pain. Denies any other injuries. Associated symptoms-after fall: Denies abdominal pain, chest pain, headache(s), hematuria or neck pain Review of Systems Const: Denies: fever(s), chills or fatigue Eyes: Denies: change in vision or eye discomfort ENMT: Denies: throat pain, odynophagia, nasal discharge or nasal congestion Card: Denies: chest pain, palpitations, edema, swelling of feet/ankles, dyspnea on exertion or orthopnea Resp: Denies: dyspnea, productive cough or non-productive cough GI: Denies: abdominal pain, nausea, vomiting, diarrhea, constipation or hematochezia : Denies: flank pain, dysuria or hematuria Musc: Reports: extremity pain (Bilateral shoulder pain and left knee pain) and limited range of motion (Bilateral shoulders and left knee); Denies: neck pain, back pain or extremity swelling Skin/Breast: Denies: rash or new lesions Neuro: Denies: headache(s), numbness in extremities or weakness in extremities [facility] ED PFSH: Medical History delivery delivered Chronic cystitis Community acquired pneumonia Family history of rectal cancer History of bipolar disorder History of hypertension Surgical History History of cholecystectomy History of hysterectomy History of incisional hernia repair History of knee surgery History of tonsillectomy Family History Mother , at age 78 COVID-19 Brother , at age 58 Cancer Colon Father , at age 45 Car occupant injured in traffic accident Other Hypertension Social History Smoking and tobacco status: current every day smoker cigarettes Packs smoked per day: 3 Years cigarettes smoked: 30 [ Other cigarette details: Currently smoking 0.5 ppd and vaping.] and e-cigarettes E-Cigarette Details: vaporizer device Quit status (tobacco): considering quitting Alcohol intake: never Adopted: No Lives independently: Yes Household members: spouse Marital status: Number of grandchildren: 2 Current occupational status: disabled Female Reproductive History: Spontaneous abortions: No Physical Exam Const: COMMON NORMALS: patient oriented x3 HENMT: COMMON NORMALS: normocephalic HEAD & SCALP: normocephalic MOUTH: Normal oral and palatal mucosa present THROAT: posterior oropharynx normal and uvula midline Neck/C-Spine: COMMON NORMALS: supple GENERAL: Yes normal visual inspection Resp: COMMON NORMALS: normal respiratory effort, No retractions, No use of accessory muscles and clear to auscultation bilaterally AUSCULTATION: clear to auscultation bilaterally Cardio: COMMON NORMALS: regular rate, regular rhythm, S1 normal heart sound present, S2 normal heart sound present, No gallops present (Cardio), No clicks present (Cardio), No murmurs present (Cardio) and Peripheral pulses 2+ throughout RATE: regular rate RHYTHM: regular rhythm HEART SOUNDS: S1 normal heart sound present and S2 normal heart sound present PERIPHERAL PULSES: Peripheral pulses 2+ throughout GI: COMMON NORMALS: Normal to inspection, nondistended, normoactive bowel sounds present, Soft to palpation, non-tender and no masses PALPATION: Yes Soft to palpation : COMMON NORMALS: Yes no CVA tenderness BLADDER/KIDNEY EXAM: Yes no CVA tenderness Back/Pelvis: COMMON NORMALS: no CVA tenderness Extremity: COMMON NORMALS: normal to inspection and full ROM Neuro: COMMON NORMALS: patient oriented x3 GAIT: Yes Normal gait present Skin: GENERAL SKIN EXAM: dry skin Course Vital Signs: Vital signs: Vital Signs Temperature 98.2 F 05/26/22 16:47 Pulse Rate 61 05/26/22 16:47 Respiratory Rate 16 05/26/22 16:47 Blood Pressure 141/52 05/26/22 16:47 Pulse Oximetry 96 05/26/22 16:47 Oxygen Delivery Me thod Room Air 05/26/22 16:47 MDM - Fall Medical Decision Making Patient is a 56-year-old female who comes to the ED with left knee and bilateral shoulder pain. Patient had fall 3 days ago. Denies any head trauma or loss of consciousness. Patient says she tripped and fell forward and caught herself with her arms extended out. Her left knee did hit the ground as well. She is having 10 out of 10 bilateral shoulder pain and left knee pain. Any weightbearing on left leg causes worsening pain and any movement of bilateral arms causes worsening shoulder pain. Denies any other injuries. Vital stable. Exam of patient is benign. X-ray of right and left shoulder show no acute fractures or findings. Left knee x-ray showed no acute fractures. Patient was diagnosed with fall with no significant injury and was stable for discharge home. Sent home with a prescription for a muscle relaxer and nausea med. Told to follow-up with PCP in the next week for reevaluation. Return to ED precautions given. Patient understood and agreed with plan. Lab Data Radiology Impressions Knee X-Ray 05/26/22 17:32 IMPRESSION: 1. No fracture is seen. 2. Degenerative change or osteoarthritis, particularly medial femoral compartment. Shoulder X-Ray 05/26/22 17:32 IMPRESSION: No fracture or dislocation. Discharge Plan Discharge Patient Disposition: Home Clinical Impression: Fall with no significant injury Qualifiers: Encounter type: initial encounter Qualified Code(s): W19.XXXA - Unspecified fall, initial encounter Condition: Stable Prescriptions: New methocarbamol 750 mg tablet 750 mg PO TID PRN (Reason: muscle spasms and pain) Qty: 20 0RF ondansetron 4 mg tablet,disintegrating 4 mg PO Q8H PRN (Reason: nausea and vomiting) Qty: 20 0RF No Action (DME) manual wheelchair See Rx Instructions .Route .MEDSUPPLY Qty: 1 0RF Rx Instructions: As directed hydrocodone-acetaminophen 7.5-325 mg tablet 1 tab PO Q6H PRN (Reason: pain) 5 Days Qty: 20 0RF gabapentin 600 mg tablet 600 mg PO BID Qty: 60 5RF escitalopram oxalate [Lexapro] 10 mg tablet 10 mg PO DAILY Qty: 30 5RF albuterol sulfate 90 mcg/actuation HFA aerosol inhaler 2 inh INHALATION Q6H PRN (Reason: shortness of breath or wheezing) Qty: 18 3RF ondansetron 4 mg tablet,disintegrating 4 mg PO Q8H PRN (Reason: nausea and vomiting) Qty: 15 0RF ciprofloxacin HCl 500 mg tablet 500 mg PO BID Qty: 60 6RF ipratropium-albuterol 0.5 mg-3 mg(2.5 mg base)/3 mL solution for nebulization 3 ml inhalation Q6H PRN (Reason: shortness of breath or wheezing) Qty: 180 3RF famotidine 20 mg tablet See Rx Instructions .ROUTE .COMPLEX Qty: 60 1RF Dose Instruction: TAKE 1 TABLET BY MOUTH TWICE A DAY Rx Instructions: TAKE 1 TABLET BY MOUTH TWICE A DAY amitriptyline 50 mg tablet 50 mg PO BEDTIME Qty: 90 1RF aspirin 81 mg Tablet,Chewable 81 mg PO DAILY fluticasone propion-salmeterol [Advair Diskus] 250-50 mcg/dose blister with device 1 inh inhalation BID Qty: 60 1RF loperamide [Imodium A-D] 2 mg Capsule 2 mg PO Q4H PRN (Reason: Diarrhea) oxycodone 5 mg tablet 5 mg PO Q4H PRN (Reason: pain) Qty: 10 0RF methocarbamol 750 mg tablet 750 mg PO Q8H PRN (Reason: muscle pain) Qty: 10 0RF Discharge Orders: Discharge ED (Routine); Ordered 05/26/22 Ordered By: Sabino Gibbs Referrals: Benson Deleon DO [Primary Care Provider] - Discharge Diet: Regular Discharge Activity: Increase activity as tolerated Activity Restrictions/Additional Instructions: Follow-up with medical provider as directed in the next 7 to 10 days for reevaluation. Continue taking all home medications as previously prescribed. return to the ER or your medical provider if condition worsens. Please read and understand discharge instructions. Thank you for choosing [facility] for your healthcare needs today. Please realize this is an emergency room and that we are providing you with a medical screening exam and this may not be complete and all inclusive of all the testing and or work up that you may need to determine your ailment or severity of your illness. It is very important that you follow up as instructed or that you return to the Emergency Department should you have concerns or if your condition changes or worsens in any way. Coding Level of Care Code ED Industrial Design Engineer for Abdirahman Hill
[2022-05-26] MEDS: HYDROcodone-acetaminophen 7.5-325 mg Tablet 1 TAB PO (17:54)
== END 2022-05-26 19:03 | disposition home or self-care (01) ==
PROVIDERS: Emergency Provider Physician Assistant; PCP Family Medicine
DX: M25.562 Pain in left knee (principal); M25.511 Pain in right shoulder; M25.512 Pain in left shoulder; Z79.82 Long term (current) use of aspirin; F17.210 Nicotine dependence, cigarettes, uncomplicated; F17.290 Nicotine dependence, other tobacco product, uncomplicated; I10 Essential (primary) hypertension
CPT/HCPCS: 73030; 73562; 99284

== ENCOUNTER 2022-06-13 15:59 | Emergency (ER) | payer MEDICAID, SELFPAY ==
--- NOTE | 2022-06-13 16:00 | W.ED.CHESTPA ---
HPI - Chest Pain General: Chief Complaint: Chest Pain Stated Complaint: chest pain/leftside pain Time Seen by Provider: 06/13/22 16:00 Source: patient Mode of arrival: ambulatory History of Present Illness: 56-year-old morbidly obese female presents emergency room for left shoulder and neck pain. Began a week ago when she fell she is exquisitely tender with palpation across the left shoulder and with movement. It is difficult to even do an EKG on her or examine her due to the discomfort. Patient states the pain has been progressively worsening she has not been evaluated since it happened she did not strike her head did not lose consciousness she has no known history of coronary artery disease or diabetes she is a smoker and has COPD. No diaphoresis or nausea or shortness of breath associated with the pain. MD complaint: chest pain Onset (ago): week(s) (1) Timing of current episode: constant Onset: other (After a fall 1 week ago) Pain location: left chest (Left shoulder) Pain radiation: neck Severity: severe Quality: sharp Relieving factors: rest Exacerbating factors: inspiration, palpation and movement (Of the arm or neck) Context: trauma/injury (Fall 1 week ago) Associated symptoms: Deny abdominal pain, diaphoresis, dyspnea, fever(s), leg edema, nausea, palpitations, sense of impending doom, syncope or vomiting Treatment prior to arrival: none Review of Systems Const: Denies: fever(s), chills, fatigue, malaise or diaphoresis ENMT: Denies: throat pain, ear or mastoid pain, nasal discharge or nasal congestion Card: Denies: chest pain, palpitations, irregular heart rhythm, edema or syncope Resp: Denies: dyspnea GI: Denies: abdominal pain, nausea or vomiting : Denies: flank pain, difficulty voiding, dysuria, urinary frequency or urinary urgency Musc: Reports: neck pain and extremity pain (Left shoulder) Skin/Breast: Denies: rash or pruritus PFSH ED PFSH: Medical History delivery delivered Chronic cystitis Community acquired pneumonia Family history of rectal cancer History of bipolar disorder History of hypertension Surgical History History of cholecystectomy History of hysterectomy History of incisional hernia repair History of knee surgery History of tonsillectomy Family History Mother , at age 78 COVID-19 Brother , at age 58 Cancer Colon Father , at age 45 Car occupant injured in traffic accident Other Hypertension Social History Smoking and tobacco status: current every day smoker cigarettes Packs smoked per day: 3 Years cigarettes smoked: 30 [ Other cigarette details: Currently smoking 0.5 ppd and vaping.] and e-cigarettes E-Cigarette Details: vaporizer device Quit status (tobacco): considering quitting Alcohol intake: never Substance/Drug Use: current Substance/Drug use frequency: few times a week Adopted: No Lives independently: Yes Household members: spouse Marital status: Number of grandchildren: 2 Current occupational status: disabled Female Reproductive History: Spontaneous abortions: No Physical Exam Const: GENERAL APPEARANCE: cooperative and comfortable ORIENTATION/CONSCIOUSNESS: Yes awake, Yes oriented to person, Yes oriented to place and Yes oriented to time HENMT: COMMON NORMALS: normocephalic, atraumatic and hearing grossly normal bilaterally HEAD & SCALP: normocephalic and atraumatic Resp: COMMON NORMALS: normal respiratory effort, No retractions, No use of accessory muscles and clear to auscultation bilaterally AUSCULTATION: clear to auscultation bilaterally Cardio: COMMON NORMALS: regular rhythm and No murmurs present (Cardio) RATE: tachycardic RHYTHM: regular rhythm GI: COMMON NORMALS: Soft to palpation and No hepatosplenomegaly present AUSCULTATION: Yes normoactive bowel sounds PALPATION: Yes Soft to palpation, No Tenderness to palpation present (GI), No Guarding due to palpation present (GI) and Yes No hepatosplenomegaly present Extremity: COMMON NORMALS: normal to inspection, capillary refill normal, no clubbing, cyanosis or edema, no calf tenderness and no pedal edema OTHER: Pain reproducible with palpation of the left shoulder and upper left upper chest. No crepitus no deformity Neuro: SENSORIUM/ORIENTATION: Yes oriented to person, Yes oriented to place and Yes oriented to time Skin: COMMON NORMALS: no rashes or lesions noted GENERAL SKIN EXAM: no rashes or lesions noted Course Vital Signs: Vital signs: Vital Signs Temperature 98.4 F 06/13/22 16:02 Pulse Rate 114 H 06/13/22 17:00 Respiratory Rate 18 06/13/22 17:00 Blood Pressure 141/107 06/13/22 17:25 Pulse Oximetry 95 06/13/22 17:00 Oxygen Delivery Me thod Room Air 06/13/22 16:02 MDM - Chest Pain Medical Decision Making EKG troponin negative. Pain very reproducible with palpation and movement in the shoulder. X-ray negative chest x-ray negative. No fractures history not suggestive of acute coronary syndrome. She has been having this for 1 week EKG and labs are normal. Suspect this is from soft tissue injury possible traumatic rotator cuff tear. We will set her up for an MRI and referral to orthopedics Medical Records I reviewed the patient's medical records. Lab Data I reviewed the patient's lab results. 06/13/22 16:27 06/13/22 16:27 Radiology Impressions Chest X-Ray 06/13/22 16:02 IMPRESSION: Minimal linear atelectasis the left lung base. Shoulder X-Ray 06/13/22 16:06 IMPRESSION: No acute radiographic abnormality of the shoulder. Laboratory Results WBC 11.1 10^3/uL (4.0-10.0) H 06/13/22 16:27 RBC 4.91 10^6/uL (4.1-5.3) 06/13/22 16:27 Hgb 14.2 g/dL (11.5-15.3) 06/13/22 16:27 Hct 45.2 % (37.0-47.0) 06/13/22 16:27 MCV 92.1 fl (81-99) 06/13/22 16:27 MCH 28.9 pg (28.0-34.0) 06/13/22 16:27 MCHC 31.4 g/dL (30.0-36.0) 06/13/22 16:27 RDW 13.2 % (12.1-15.1) 06/13/22 16:27 Plt Count 222 10^3/cmm (130-400) 06/13/22 16:27 MPV 10.4 fL (7.4-10.4) 06/13/22 16:27 Neut % (Auto) 53.6 % 06/13/22 16:27 Lymph % (Auto) 35.4 % 06/13/22 16:27 Miller % (Auto) 8.5 % 06/13/22 16:27 Eos % (Auto) 1.7 % 06/13/22 16:27 Baso % (Auto) 0.4 % 06/13/22 16:27 Neut # (Auto) 5.97 10^3/uL (1.8-7.7) 06/13/22 16:27 Lymph # (Auto) 3.9 10^3/uL (0.8-4.8) 06/13/22 16:27 Miller # (Auto) 1.0 10^3/uL (0.2-0.9) H 06/13/22 16:27 Eos # (Auto) 0.2 10^3/uL (0.0-0.8) 06/13/22 16:27 Baso # (Auto) 0.1 10^3/uL (0.0-0.1) 06/13/22 16:27 Nucleated RBC % (auto) 0 % 06/13/22 16:27 Nucleated RBCs # 0.0 /100WBC 06/13/22 16:27 Sodium 138 mmol/L (136-145) 06/13/22 16:27 Potassium 4.7 mmol/L (3.5-5.1) 06/13/22 16:27 Chloride 101 mmol/L (98-107) 06/13/22 16:27 Carbon Dioxide 26 mmol/L (22-29) 06/13/22 16:27 Anion Gap 15.7 (5-19) 06/13/22 16:27 BUN 12 mg/dL (6-20) 06/13/22 16:27 Creatinine 0.5 mg/dL (0.5-0.9) 06/13/22 16:27 GFR Calculation 127.2 mL/min (90-130) 06/13/22 16:27 Glucose 252 mg/dL (65-115) H 06/13/22 16:27 Calculated Osmolality 294 mOsm/kg (285-295) 06/13/22 16:27 Calcium 9.0 mg/dL (8.5-10.5) 06/13/22 16:27 Total Bilirubin 0.2 mg/dL (0.15-1.2) 06/13/22 16:27 AST 43 U/L (0-32) H 06/13/22 16:27 ALT 17 U/L (0-33) 06/13/22 16:27 Alkaline Phosphatase 80 U/L (35-105) 06/13/22 16:27 Troponin T Baseline 10 ng/L (0-10) 06/13/22 16:27 Total Protein 7.1 g/dL (6.6-8.7) 06/13/22 16:27 Albumin 4.1 g/dL (3.5-5.2) 06/13/22 16:27 Globulin 3.0 g/dL (1.3-4.6) 06/13/22 16:27 Discharge Plan Discharge Patient Disposition: Home Clinical Impression: Acute shoulder pain Condition: Stable Prescriptions: New diclofenac sodium 75 mg tablet,delayed release (DR/EC) 75 mg PO Q12H PRN (Reason: pain) Qty: 20 0RF No Action (DME) manual wheelchair See Rx Instructions .Route .MEDSUPPLY Qty: 1 0RF Rx Instructions: As directed hydrocodone-acetaminophen 7.5-325 mg tablet 1 tab PO Q6H PRN (Reason: pain) 5 Days Qty: 20 0RF gabapentin 600 mg tablet 600 mg PO BID Qty: 60 5RF escitalopram oxalate [Lexapro] 10 mg tablet 10 mg PO DAILY Qty: 30 5RF albuterol sulfate 90 mcg/actuation HFA aerosol inhaler 2 inh INHALATION Q6H PRN (Reason: shortness of breath or wheezing) Qty: 18 3RF ondansetron 4 mg tablet,disintegrating 4 mg PO Q8H PRN (Reason: nausea and vomiting) Qty: 15 0RF ciprofloxacin HCl 500 mg tablet 500 mg PO BID Qty: 60 6RF ipratropium-albuterol 0.5 mg-3 mg(2.5 mg base)/3 mL solution for nebulization 3 ml inhalation Q6H PRN (Reason: shortness of breath or wheezing) Qty: 180 3RF famotidine 20 mg tablet See Rx Instructions .ROUTE .COMPLEX Qty: 60 1RF Dose Instruction: TAKE 1 TABLET BY MOUTH TWICE A DAY Rx Instructions: TAKE 1 TABLET BY MOUTH TWICE A DAY amitriptyline 50 mg tablet 50 mg PO BEDTIME Qty: 90 1RF aspirin 81 mg Tablet,Chewable 81 mg PO DAILY fluticasone propion-salmeterol [Advair Diskus] 250-50 mcg/dose blister with device 1 inh inhalation BID Qty: 60 1RF loperamide [Imodium A-D] 2 mg Capsule 2 mg PO Q4H PRN (Reason: Diarrhea) methocarbamol 750 mg tablet 750 mg PO TID PRN (Reason: muscle spasms and pain) Qty: 20 0RF ondansetron 4 mg tablet,disintegrating 4 mg PO Q8H PRN (Reason: nausea and vomiting) Qty: 20 0RF oxycodone 5 mg tablet 5 mg PO Q4H PRN (Reason: pain) Qty: 10 0RF methocarbamol 750 mg tablet 750 mg PO Q8H PRN (Reason: muscle pain) Qty: 10 0RF Discharge Orders: Discharge ED (Routine); Ordered 06/13/22 Ordered By: Dheeraj Suarez Referrals: eBnson Deleon DO [Primary Care Provider] - Discharge Diet: Usual diet Discharge Activity: Increase activity as tolerated Patient Instructions: Opioid Safety, Pain Management Activity Restrictions/Additional Instructions: You are seen today for left shoulder pain x-rays EKG and laboratory tests were unremarkable suspect you may have a soft tissue injury to your shoulder recommend using the sling we will set you up for an outpatient MRI and referral to orthopedics Coding Level of Care Code ED Stem Processing Machine Operator for Abdirahman Hill
[2022-06-13 16:02] VITALS: BP 160/123; PULSE 112; RESP 17; TEMP 36.9; O2SAT 98; BMI 48.8
--- NOTE | 2022-06-13 16:02 | XRR_ITS ---
PROCEDURE INFORMATION: Exam: XR Chest Exam date and time: 06/13/2022 4:09 PM Age: 56 years old Clinical indication: Pain; Chest pressure; Prior surgery; Surgery type: Gb; Additional info: Dyspnea/cough TECHNIQUE: Imaging protocol: Radiologic exam of the chest. Views: 1 view. COMPARISON: CR (CHEST, ) 10/24/2021 1:33 PM FINDINGS: Lungs: There is minimal linear atelectasis at the left lung base. The lungs are otherwise clear. Pleural spaces: No pleural effusion. No pneumothorax detected. Heart/Mediastinum: No cardiomegaly. Bones/joints: Unremarkable. XR/XR chest 1V portable [id number] IMPRESSION: Minimal linear atelectasis the left lung base.
--- NOTE | 2022-06-13 16:06 | ECG_ITS ---
[facility] Test Date: 2022-06-13 Pat Name: Cyndi Baca Department: Room: Gender: Female Leasing Associate: : 1965 Requested By: Dheeraj Ortiz Order Number: [id number] Ramila MD: Мария Encinas M.D. Measurements Intervals Mcleod Rate: 108 P: 58 AK: 160 QRS: -2 QRSD: 93 T: 80 QT: 326 QTc: 437 Interpretive Statements SINUS TACHYCARDIA POSSIBLE RIGHT VENTRICULAR CONDUCTION DELAY [RSR (QR) IN V1/V2] NONSPECIFIC T-WAVE ABNORMALITY ABNORMAL RHYTHM ECG INTERPRETATION BASED ON A DEFAULT AGE OF 40 YEARS Compared to ECG 11/22/2019 22:39:46 T-wave abnormality now present Sinus rhythm no longer present Myocardial infarct finding no longer present Electronically Signed On 06-13-2022 22:32:42 CDT by Мария Encinas M.D. [id number] f
--- NOTE | 2022-06-13 16:06 | XRR_ITS ---
PROCEDURE INFORMATION: Exam: XR Left Shoulder Exam date and time: 06/13/2022 4:10 PM Age: 56 years old Clinical indication: Injury or trauma; Fall; Blunt trauma (contusions or hematomas); Shoulder; Left; Additional info: Pain TECHNIQUE: Imaging protocol: Radiologic exam of the left shoulder. Views: 2 or more views. COMPARISON: CR (CHEST, ) 05/26/2022 5:42 PM FINDINGS: Bones/joints: No dislocation is seen. The acromioclavicular and glenohumeral joints are normally aligned. There are mild degenerative changes at the acromioclavicular joint. No fracture is visualized. No destructive osseous lesions are seen. There are no findings of calcific tendinitis. Soft tissues: Normal. XR/XR shoulder LT min 2V* [id number] IMPRESSION: No acute radiographic abnormality of the shoulder.
[2022-06-13 16:23] VITALS: RESP 18; O2SAT 98
[2022-06-13] MEDS: morphine 4 mg/mL SDV 1 mL IVP (16:23)
[2022-06-13] MEDS: aspirin 81 mg Chew Tablet 324 MG PO (16:23)
[2022-06-13 16:26] VITALS: O2SAT 97
[2022-06-13 16:30] VITALS: PULSE 120; RESP 20; O2SAT 97
[2022-06-13 16:35] LABS: Basophils # 0.1 10^3/uL (0.0-0.1); Basophils % 0.4 %; Eosinophils # 0.2 10^3/uL (0.0-0.8); Eosinophils % 1.7 %; Hematocrit 45.2 % (37.0-47.0); Hemoglobin 14.2 g/dL (11.5-15.3); Lymphocytes # 3.9 10^3/uL (0.8-4.8); Lymphocytes % 35.4 %; Mean Corpuscular HGB Conc 31.4 g/dL (30.0-36.0); Mean Corpuscular Hemoglobin 28.9 pg (28.0-34.0); Mean Corpuscular Volume 92.1 fl (81-99); Mean Platelet Volume 10.4 fL (7.4-10.4); Monocytes % 8.5 %; Neutrophils # 5.97 10^3/uL (1.8-7.7); Neutrophils % 53.6 %; Nucleated Red Blood Cells % 0 %; Platelet Count 222 10^3/cmm (130-400); Red Blood Count 4.91 10^6/uL (4.1-5.3); Red Cell Distribution Width 13.2 % (12.1-15.1); White Blood Count 11.1 10^3/uL (4.0-10.0)
--- NOTE | 2022-06-13 16:42 | PC.NURSE ---
Pt hooked up to continuous bedside cardiac monitoring.
[2022-06-13 16:56] LABS: Troponin(5th) Baseline 10 ng/L (0-10)
[2022-06-13 16:57] LABS: Alanine Aminotransferase 17 U/L (0-33); Albumin Level 4.1 g/dL (3.5-5.2); Alkaline Phosphatase 80 U/L (35-105); Aspartate Amino Transferase 43 U/L (0-32); Blood Urea Nitrogen 12 mg/dL (6-20); Carbon Dioxide 26 mmol/L (22-29); Chloride 101 mmol/L (98-107); Glomerular Filtration Rate 127.2 mL/min (90-130); Glucose 252 mg/dL (65-115); Osmolality Calculated 294 mOsm/kg (285-295); Sodium 138 mmol/L (136-145); Total Bilirubin 0.2 mg/dL (0.15-1.2); Total Protein 7.1 g/dL (6.6-8.7)
[2022-06-13 17:00] VITALS: BP 180/111; PULSE 114; RESP 18; O2SAT 95
[2022-06-13 17:02] LABS: Anion Gap 15.7 (5-19); Potassium 4.7 mmol/L (3.5-5.1)
[2022-06-13] MEDS: promethazine 25 mg/mL SDV 1 mL IM (17:19)
[2022-06-13 17:25] VITALS: BP 141/107
--- NOTE | 2022-06-15 10:14 | DCPLANNER ---
Addendum entered by Roselyn Allen 07/04/22 08:14: This appointment was rescheduled to a later date. Addendum entered by Roselyn Allen 06/16/22 10:04: Patient has an outpatient MRI scheduled for Saturday, July 02, 2022 at 3:15. Original Note: manager discovery had message to schedule an outpatient MRI for patient. manager discovery faxed signed order to centralized scheduling, who will call patient with appointment information.
== END 2022-06-13 17:37 | disposition home or self-care (01) ==
PROVIDERS: Emergency Provider Family Medicine; PCP Family Medicine
DX: M25.512 Pain in left shoulder (principal); F17.210 Nicotine dependence, cigarettes, uncomplicated; F17.290 Nicotine dependence, other tobacco product, uncomplicated; I10 Essential (primary) hypertension; Z79.82 Long term (current) use of aspirin
CPT/HCPCS: 71045; 73030; 80053; 84484; 85025; 93005; 96372; 96374; 99285; J2270; J2550

== ENCOUNTER 2022-06-29 13:19 | Emergency (ER) | payer MEDICAID, SELFPAY ==
[2022-06-29 13:42] VITALS: BP 138/93; PULSE 99; RESP 18; TEMP 36.7; O2SAT 97
--- NOTE | 2022-06-29 13:42 | ECG_ITS ---
[facility] Test Date: 2022-06-29 Pat Name: Cyndi Baca Department: Room: Gender: Female Origination Specialist: : 1965 Requested By: Dheeraj Ortiz Order Number: [id number] Ramila MD: Jesse Linda M.D. Measurements Intervals Martin Rate: 102 P: 152 DE: 144 QRS: -19 QRSD: 85 T: 150 QT: 324 QTc: 422 Interpretive Statements ECTOPIC ATRIAL TACHYCARDIA WITH OCCASIONAL VENTRICULAR PREMATURE COMPLEXES LOW QRS VOLTAGE IN PRECORDIAL LEADS [QRS DEFLECTION < 1.0 mV IN CHEST LEADS] SEPTAL MYOCARDIAL INFARCTION , PROBABLY OLD [40+ ms Q WAVE IN V1/V2] PROBABLE LATERAL MYOCARDIAL INFARCTION , OF INDETERMINATE AGE [35 ms Q WAVE IN I/aVL/V5/V6] Compared to ECG 06/13/2022 16:06:57 Ventricular premature complex(es) now present Low QRS voltage now present Myocardial infarct finding now present Sinus tachycardia no longer present T-wave abnormality no longer present Electronically Signed On 06-29-2022 16:53:04 CDT by Jesse Linda M.D. [id number]
[2022-06-29 14:15] VITALS: BP 141/82; PULSE 108; RESP 20; O2SAT 96
--- NOTE | 2022-06-29 14:19 | ED_ITS ---
HPI - Chest Pain General: Chief Complaint: Chest Pain Stated Complaint: Chest Pain, Left side pain Time Seen by Provider: 06/29/22 14:14 History of Present Illness: Patient presents to the ER with left-sided shoulder pain that radiates into her chest down her arm and up into her neck. Patient has been seen in this ER several times for this within the past couple weeks. Patient has had x-rays of her chest and bilateral shoulders done. Patient reports no new trauma. During the last ER visit patient had an appointment set up for an MRI and appointment to follow-up with the orthopedic surgeon. Per patient they are both next week. MD complaint: other (Left shoulder pain) Pertinent past history: other Onset (ago): week(s) (Started approximately 2 weeks ago worse today) Timing of current episode: constant Prior episodes: Yes Pain location: other (Left shoulder) Pain radiation: other (Down arm into chest and up into her neck) Severity: moderate Quality: aching Relieving factors: nothing Exacerbating factors: movement Associated symptoms: Reports no associated symptoms; Deny abdominal pain, dyspnea, fever(s), nausea, palpitations or vomiting Treatment prior to arrival: none Review of Systems General: Reports: 10 or more systems reviewed and unremarkable except in HPI and below Const: Denies: fever(s) or chills Eyes: Denies: change in vision or photophobia ENMT: Denies: throat pain or odynophagia Card: Denies: chest pain, palpitations or irregular heart rhythm Resp: Denies: dyspnea, productive cough or non-productive cough GI: Denies: abdominal pain, nausea or vomiting : Denies: flank pain, difficulty voiding or dysuria Musc: Reports: joint pain; Denies: neck pain or back pain Skin/Breast: Denies: rash or pruritus Neuro: Denies: headache(s), numbness in extremities or weakness in extremities PFSH ED PFSH: Medical History delivery delivered Chronic cystitis Community acquired pneumonia Family history of rectal cancer History of bipolar disorder History of hypertension Surgical History History of cholecystectomy History of hysterectomy History of incisional hernia repair History of knee surgery History of tonsillectomy Family History Mother , at age 78 COVID-19 Brother , at age 58 Cancer Colon Father , at age 45 Car occupant injured in traffic accident Other Hypertension Social History Smoking and tobacco status: current every day smoker cigarettes Packs smoked per day: 3 Years cigarettes smoked: 30 [ Other cigarette details: Currently smoking 0.5 ppd and vaping.] and e-cigarettes E-Cigarette Details: vaporizer device Quit status (tobacco): considering quitting Alcohol intake: never Substance/Drug Use: current Substance/Drug use frequency: few times a week Adopted: No Lives independently: Yes Household members: spouse Marital status: Number of grandchildren: 2 Current occupational status: disabled Female Reproductive History: Spontaneous abortions: No Physical Exam Const: COMMON NORMALS: no acute distress, average body habitus, patient oriented x3, no limitations, healthy appearing, alert and well nourished HENMT: COMMON NORMALS: normocephalic, atraumatic, hearing grossly normal bilaterally, external ears normal, Normal external nose present and moist oral mucous membranes HEAD & SCALP: normocephalic and atraumatic NOSE: Normal external nose present EXTERNAL EAR: Yes external ears normal Eye: COMMON NORMALS: Equal, round and reactive pupils present, EOMs intact bilaterally, conjunctivae normal and no scleral icterus CONJUNCTIVA: Yes conjunctivae normal PUPIL: Yes Equal, round and reactive pupils present Neck/C-Spine: COMMON NORMALS: full ROM, no lymphadenopathy, supple, no meningeal signs, no JVD and Thyroid normal THYROID: Thyroid normal Chest: COMMONS NORMALS: normal inspection of the chest and normal palpation of entire chest wall Resp: COMMON NORMALS: normal respiratory effort, No retractions, No use of accessory muscles and clear to auscultation bilaterally AUSCULTATION: clear to auscultation bilaterally Cardio: COMMON NORMALS: no JVD, regular rate, regular rhythm, S1 normal heart sound present, S2 normal heart sound present, No gallops present (Cardio), No clicks present (Cardio) and No murmurs present (Cardio) RATE: regular rate RHYTHM: regular rhythm HEART SOUNDS: S1 normal heart sound present and S2 normal heart sound present GI: COMMON NORMALS: Normal to inspection, nondistended, normoactive bowel sounds present, Soft to palpation, non-tender, No hepatosplenomegaly present and no masses PALPATION: Yes Soft to palpation and Yes No hepatosplenomegaly present Extremity: NARRATIVE EXTREMITY EXAM: Pain with any movement and palpation over the left shoulder joint region. Neuro: COMMON NORMALS: patient oriented x3 SENSORIUM/ORIENTATION: Yes alert MENINGEAL SIGNS: Yes no meningeal signs Course Vital Signs: Vital signs: Vital Signs Temperature 98.0 F 06/29/22 13:42 Pulse Rate 108 H 06/29/22 15:37 Respiratory Rate 18 06/29/22 15:35 Blood Pressure 153/104 06/29/22 15:37 Pulse Oximetry 95 06/29/22 15:37 Oxygen Delivery Me thod Room Air 06/29/22 15:37 MDM - Chest Pain Medical Decision Making Patient presents ER with complaints of left shoulder pain. Records from several previous ER visits were reviewed including x-rays. Patient already has an MRI next week as well as a orthopedic consult arranged. Patient was given multiple doses of IV pain medicine which helped her pain. Patient be discharged home to continue her current regimen of pain control. Patient should keep her MRI and orthopedic appointments already scheduled. Differential Diagnosis Unlikely acute massive pulmonary embolism, acute respiratory failure, acute myocardial infarction, cardiac arrest or sudden cardiac Medical Records I reviewed the patient's medical records. Lab Data I reviewed the patient's lab results. Discharge Plan Discharge Patient Disposition: Home Clinical Impression: Bilateral shoulder pain Qualifiers: Chronicity: acute Qualified Code(s): M25.511 - Pain in right shoulder Condition: Stable Prescriptions: New hydrocodone-acetaminophen 5-325 mg tablet 1 tab PO Q8H PRN (Reason: pain) Qty: 10 0RF No Action (DME) manual wheelchair See Rx Instructions .Route .MEDSUPPLY Qty: 1 0RF Rx Instructions: As directed gabapentin 600 mg tablet 600 mg PO BID Qty: 60 5RF albuterol sulfate 90 mcg/actuation HFA aerosol inhaler 2 inh INHALATION Q6H PRN (Reason: shortness of breath or wheezing) Qty: 18 3RF ipratropium-albuterol 0.5 mg-3 mg(2.5 mg base)/3 mL solution for nebulization 3 ml inhalation Q6H PRN (Reason: shortness of breath or wheezing) Qty: 180 3RF amitriptyline 50 mg tablet 50 mg PO BEDTIME Qty: 90 1RF aspirin 81 mg Tablet,Chewable 81 mg PO QAM fluticasone propion-salmeterol [Advair Diskus] 250-50 mcg/dose blister with device 1 inh inhalation BID Qty: 60 1RF loperamide [Imodium A-D] 2 mg Capsule 2 mg PO Q4H PRN (Reason: Diarrhea) famotidine 20 mg tablet 20 mg PO BID Lexapro 10 mg tablet 10 mg PO BEDTIME Discharge Orders: Discharge ED (Routine); Ordered 06/29/22 Ordered By: Stephen Mcgowan Referrals: Benson Deleon DO [Primary Care Provider] - 1 week Patient Instructions: Shoulder Pain (ED), Opioid Safety, Pain Management Activity Restrictions/Additional Instructions: Please keep your appointments for the MRI and orthopedic surgeon that are already scheduled. Coding Level of Care Code ED International Trade Compliance Manager for Abdirahman Hill
[2022-06-29] MEDS: promethazine 25 mg/mL SDV 1 mL IM (14:28)
[2022-06-29] MEDS: morphine 4 mg/mL SDV 1 mL IM ×2 (14:28→15:35)
[2022-06-29 15:35] VITALS: RESP 18
[2022-06-29 15:37] VITALS: BP 153/104; PULSE 108; O2SAT 95
== END 2022-06-29 16:49 | disposition home or self-care (01) ==
PROVIDERS: Emergency Provider Emergency Medicine; PCP Family Medicine
DX: M25.511 Pain in right shoulder (principal); Z79.82 Long term (current) use of aspirin; I10 Essential (primary) hypertension; F17.210 Nicotine dependence, cigarettes, uncomplicated; F17.290 Nicotine dependence, other tobacco product, uncomplicated
CPT/HCPCS: 93005; 96372; 99284; J2270; J2550

== ENCOUNTER 2022-07-24 17:23 | Emergency (ER) | payer MEDICAID, SELFPAY ==
[2022-07-24] VITALS (8 sets, daily range): BP systolic 105–188; BP diastolic 72–125; PULSE 94–104; RESP 16–22; TEMP 36.6–36.7; O2SAT 90–99
[2022-07-24] MEDS: cyclobenzaprine 10 mg Tablet 5 MG PO (17:57)
[2022-07-24] MEDS: ondansetron 2 mg/ML SDV 2 mL 4 MG IM (17:57)
[2022-07-24] MEDS: morphine 4 mg/mL SDV 1 mL IM (17:58)
--- NOTE | 2022-07-24 18:12 | ED_ITS ---
HPI - Dizziness General: Chief Complaint: Dizziness Stated Complaint: Lower back pain, shouler pain Time Seen by Provider: 07/24/22 17:40 History of Present Illness: HPI Narrative: Patient presents to the ER status post fall. Patient slipped and tried to catch herself and jerking her left shoulder very badly and hurting her back. Patient had pain in these areas previously but not to this extent. Patient gets dizzy and nauseous when she gets up secondary to the pain. Exacerbating factors: movement/ambulation Relieving factors: nothing Associated symptoms: Reports no associated symptoms and nausea Associated neuro symptoms: Reports no associated symptoms Review of Systems General: Reports: 10 or more systems reviewed and unremarkable except in HPI and below GI: Reports: nausea PFSH ED PFSH: Medical History delivery delivered Chronic cystitis Community acquired pneumonia Family history of rectal cancer History of bipolar disorder History of hypertension Surgical History History of cholecystectomy History of hysterectomy History of incisional hernia repair History of knee surgery History of tonsillectomy Family History Mother , at age 78 COVID-19 Brother , at age 58 Cancer Colon Father , at age 45 Car occupant injured in traffic accident Other Hypertension Social History Smoking and tobacco status: current every day smoker cigarettes Packs smoked per day: 3 Years cigarettes smoked: 30 [ Other cigarette details: Currently smoking 0.5 ppd and vaping.] and e-cigarettes E-Cigarette Details: vaporizer device Quit status (tobacco): considering quitting Alcohol intake: never Substance/Drug Use: current Substance/Drug use frequency: few times a week Adopted: No Lives independently: Yes Household members: spouse Marital status: Number of grandchildren: 2 Current occupational status: disabled Female Reproductive History: Spontaneous abortions: No Physical Exam Const: COMMON NORMALS: no acute distress, average body habitus, patient oriented x3, no limitations, healthy appearing, alert and well nourished HENMT: COMMON NORMALS: normocephalic, atraumatic, hearing grossly normal bilaterally, external ears normal, Normal external nose present and moist oral mucous membranes HEAD & SCALP: normocephalic and atraumatic NOSE: Normal external nose present EXTERNAL EAR: Yes external ears normal Eye: COMMON NORMALS: Equal, round and reactive pupils present, EOMs intact bilaterally, conjunctivae normal and no scleral icterus CONJUNCTIVA: Yes conjunctivae normal PUPIL: Yes Equal, round and reactive pupils present Neck/C-Spine: COMMON NORMALS: full ROM, no lymphadenopathy, supple, no meningeal signs, no JVD and Thyroid normal THYROID: Thyroid normal Lymph: LYMPHATIC: no lymphadenopathy noted and no lymphedema noted Chest: COMMONS NORMALS: normal inspection of the chest and normal palpation of entire chest wall Resp: COMMON NORMALS: normal respiratory effort, No retractions, No use of accessory muscles and clear to auscultation bilaterally AUSCULTATION: clear to auscultation bilaterally Cardio: COMMON NORMALS: no JVD, regular rhythm, S1 normal heart sound present, S2 normal heart sound present, No gallops present (Cardio), No clicks present (Cardio), No murmurs present (Cardio) and No rub (Cardio) RHYTHM: regular rhythm HEART SOUNDS: S1 normal heart sound present and S2 normal heart sound present GI: COMMON NORMALS: Normal to inspection, nondistended, normoactive bowel sounds present, Soft to palpation, non-tender, No hepatosplenomegaly present and no masses PALPATION: Yes Soft to palpation and Yes No hepatosplenomegaly present Neuro: COMMON NORMALS: patient oriented x3 SENSORIUM/ORIENTATION: Yes alert MENINGEAL SIGNS: Yes no meningeal signs Course Vital Signs: Vital signs: Vital Signs Temperature 98 F 07/24/22 18:04 Pulse Rate 95 07/24/22 21:05 Respiratory Rate 16 07/24/22 21:05 Blood Pressure 107/85 07/24/22 21:05 Pulse Oximetry 99 07/24/22 21:05 Oxygen Delivery Me thod Nasal Cannula 07/24/22 20:04 MDM - Dizziness Medical Decision Making Patient fell and tried to catch herself and injured her left shoulder and her low back. These areas were x-rayed with no acute findings. Patient was given IM IV and p.o. pain medicine and was found sleeping in her bed. Patient be discharged on p.o. pain medicine and told to follow-up with her primary care practitioner within the next week for further evaluation and treatment. Differential Diagnosis Unlikely adverse reaction to drug, benign paroxysmal positional vertigo, orthostatic hypotension, vertebral basilar insufficiency, cerebrovascular accident, acute vestibular neuronitis or transient cerebral ischemia Medical Records I reviewed the patient's medical records. Lab Data I reviewed the patient's lab results. Radiology Impressions Lumbar Spine X-Ray 07/24/22 19:06 IMPRESSION: No acute findings. Shoulder X-Ray 07/24/22 19:06 IMPRESSION: No acute findings. Discharge Plan Discharge Patient Disposition: Home Clinical Impression: Acute pain of left shoulder Fall Qualifiers: Encounter type: initial encounter Qualified Code(s): W19.XXXA - Unspecified fall, initial encounter Low back pain Qualifiers: Chronicity: acute Back pain laterality: bilateral Sciatica presence: without sciatica Qualified Code(s): M54.50 - Low back pain, unspecified Condition: Stable Prescriptions: New oxycodone 5 mg tablet 5 mg PO Q8H PRN (Reason: pain) Qty: 10 0RF ondansetron HCl 4 mg tablet 4 mg PO Q8H PRN (Reason: nausea and vomiting) Qty: 10 0RF No Action (DME) manual wheelchair See Rx Instructions .Route .MEDSUPPLY Qty: 1 0RF Rx Instructions: As directed clindamycin HCl 300 mg capsule 600 mg PO Q8H 7 Days Qty: 42 0RF prednisone 20 mg tablet 60 mg PO DAILY 5 Days Qty: 15 0RF mupirocin 2 % ointment 1 applic topical BID Qty: 22 0RF gabapentin 600 mg tablet 600 mg PO BID Qty: 60 5RF albuterol sulfate 90 mcg/actuation HFA aerosol inhaler 2 inh INHALATION Q6H PRN (Reason: shortness of breath or wheezing) Qty: 18 3RF ipratropium-albuterol 0.5 mg-3 mg(2.5 mg base)/3 mL solution for nebulization 3 ml inhalation Q6H PRN (Reason: shortness of breath or wheezing) Qty: 180 3RF amitriptyline 50 mg tablet 50 mg PO BEDTIME Qty: 90 1RF aspirin 81 mg Tablet,Chewable 81 mg PO QAM fluticasone propion-salmeterol [Advair Diskus] 250-50 mcg/dose blister with device 1 inh inhalation BID Qty: 60 1RF loperamide [Imodium A-D] 2 mg Capsule 2 mg PO Q4H PRN (Reason: Diarrhea) famotidine 20 mg tablet 20 mg PO BID Lexapro 10 mg tablet 10 mg PO BEDTIME hydrocodone-acetaminophen 5-325 mg tablet 1 tab PO Q8H PRN (Reason: pain) Qty: 10 0RF Discharge Orders: Discharge ED (Routine); Ordered 07/24/22 Ordered By: Stephen Mcgowan Referrals: Benson Deleon DO [Primary Care Provider] - 1 week Patient Instructions: Opioid Safety, Pain Management Activity Restrictions/Additional Instructions: Please follow-up with your family practice doc within the next 1 week for further evaluation and treatment. Coding Level of Care Code ED Math Instructor for Abdirahman Hill
[2022-07-24] MEDS: metoclopramide 5 mg/mL SDV 2 mL 10 MG IVP (18:39)
[2022-07-24] MEDS: morphine 4 mg/mL SDV 1 mL IVP (18:39)
--- NOTE | 2022-07-24 19:06 | XRR_ITS ---
PROCEDURE INFORMATION: Exam: XR Left Shoulder Exam date and time: 07/24/2022 7:21 PM Age: 56 years old Clinical indication: Injury or trauma; Fall; Blunt trauma (contusions or hematomas); Shoulder; Left; Additional info: Fall pain TECHNIQUE: Imaging protocol: Radiologic exam of the left shoulder. Views: 2 or more views. COMPARISON: CR (CHEST, ) 06/13/2022 4:10 PM FINDINGS: Bones/joints: Normal. Soft tissues: Normal. XR/XR shoulder LT min 2V* [id number] IMPRESSION: No acute findings.
--- NOTE | 2022-07-24 19:06 | XRR_ITS ---
PROCEDURE INFORMATION: Exam: XR Lumbosacral Spine Exam date and time: 07/24/2022 7:21 PM Age: 56 years old Clinical indication: Injury or trauma; Fall; Other: Lower back pain; Patient HX: PT body habitus made for a difficult ap, best images obtained with equipment kvp limitations; Additional info: Fall pain TECHNIQUE: Imaging protocol: Radiologic exam of the lumbosacral spine. Views: 2 or 3 views. COMPARISON: CT lumbar spine wo con* [id number] 09/19/2019 5:21 PM FINDINGS: Bones/joints: Multilevel degenerative disc change. No acute bony findings. Bony detail partially obscured on frontal projection . Soft tissues: Unremarkable. XR/XR lumbar spine 2-3V* [id number] IMPRESSION: No acute findings.
[2022-07-24] MEDS: oxyCODONE-APAP 5-325 mg Tablet 1 TAB PO (20:04)
== END 2022-07-24 21:15 | disposition home or self-care (01) ==
PROVIDERS: Emergency Provider Emergency Medicine; PCP Family Medicine
DX: M54.50 Low back pain, unspecified (principal); M25.512 Pain in left shoulder; Z79.82 Long term (current) use of aspirin; F17.210 Nicotine dependence, cigarettes, uncomplicated; I10 Essential (primary) hypertension; W01.0XXA Fall on same level from slipping, tripping and stumbling without subsequent striking against object, initial encounter
CPT/HCPCS: 72100; 73030; 96372; 96374; 96375; 99284; J2270; J2405; J2765

== ENCOUNTER 2022-07-29 08:37 | Emergency (ER) | payer MEDICAID, SELFPAY ==
[2022-07-29] VITALS (10 sets, daily range): BP systolic 126–156; BP diastolic 61–99; PULSE 80–90; RESP 18; TEMP 37.1; O2SAT 90–100; BMI 47.5
--- NOTE | 2022-07-29 09:04 | W.ED.BACK ---
HPI - Back Pain/Injury General: Chief Complaint: Back Pain/Injury Stated Complaint: low back pain Time Seen by Provider: 07/29/22 08:38 Source: patient Mode of arrival: ambulatory History of Present Illness: 56-year-old female presents to the emergency room complaining of back pain she was here several days ago similar complaint was discharged home with oxycodone. She states that approximately 4 to 5 days ago she slipped and caught herself on a car and twisted and began having left-sided mid back pain she did not strike her head she did not actually fall to the ground there is no other injuries she is not having difficulty with bowel or bladder no dysuria urgency or frequency. She has a chronic baseline cough which remains unchanged nonproductive. No hematuria she has not had any urinary retention or fecal incontinence MD elicited complaint: back pain Pertinent past history: prior back pain Severity: moderate Similar Symptoms Previously: Yes Location: lumbar spine Radiation: none Exacerbating factors: movement and walking Relieving factors: supine Context: turning/twisting Associated symptoms: Deny abdominal pain, arthralgias, chills, change in bowel habits, difficulty walking, dysuria, fatigue, fecal incontinence, fever(s), hematuria, myalgias, nausea, numbness, syncope, tingling/numbness/burning, urinary frequency, urinary urgency, vomiting or weakness Work related injury: No Review of Systems Const: Denies: fever(s), chills or fatigue Card: Denies: syncope GI: Denies: abdominal pain, nausea, vomiting, fecal incontinence or change in bowel habits : Denies: dysuria, urinary urgency or hematuria Neuro: Denies: difficulty walking PFSH ED PFSH: Medical History delivery delivered Chronic cystitis Community acquired pneumonia Family history of rectal cancer History of bipolar disorder History of hypertension Surgical History History of cholecystectomy History of hysterectomy History of incisional hernia repair History of knee surgery History of tonsillectomy Family History Mother , at age 78 COVID-19 Brother , at age 58 Cancer Colon Father , at age 45 Car occupant injured in traffic accident Other Hypertension Social History Smoking and tobacco status: current every day smoker cigarettes Packs smoked per day: 3 Years cigarettes smoked: 30 [ Other cigarette details: Currently smoking 0.5 ppd and vaping.] and e-cigarettes E-Cigarette Details: vaporizer device Quit status (tobacco): considering quitting Alcohol intake: never Substance/Drug Use: current Substance/Drug use frequency: few times a week Adopted: No Lives independently: Yes Household members: spouse Marital status: Number of grandchildren: 2 Current occupational status: disabled Female Reproductive History: Spontaneous abortions: No Physical Exam Const: GENERAL APPEARANCE: cooperative ORIENTATION/CONSCIOUSNESS: Yes awake, Yes oriented to person, Yes oriented to place and Yes oriented to time HENMT: COMMON NORMALS: normocephalic, atraumatic and hearing grossly normal bilaterally HEAD & SCALP: normocephalic and atraumatic Resp: COMMON NORMALS: normal respiratory effort, No retractions, No use of accessory muscles and clear to auscultation bilaterally AUSCULTATION: clear to auscultation bilaterally Cardio: COMMON NORMALS: regular rate, regular rhythm and No murmurs present (Cardio) RATE: regular rate RHYTHM: regular rhythm GI: COMMON NORMALS: Soft to palpation and No hepatosplenomegaly present AUSCULTATION: Yes normoactive bowel sounds PALPATION: Yes Soft to palpation, No Tenderness to palpation present (GI), No Guarding due to palpation present (GI) and Yes No hepatosplenomegaly present Extremity: COMMON NORMALS: normal to inspection, capillary refill normal, no clubbing, cyanosis or edema, no calf tenderness and no pedal edema Neuro: SENSORIUM/ORIENTATION: Yes oriented to person, Yes oriented to place and Yes oriented to time Skin: COMMON NORMALS: no rashes or lesions noted GENERAL SKIN EXAM: no rashes or lesions noted Course Vital Signs: Vital signs: Vital Signs Temperature 98.8 F 07/29/22 08:44 Pulse Rate 80 07/29/22 15:17 Respiratory Rate 18 07/29/22 15:17 Blood Pressure 142/70 07/29/22 15:17 Pulse Oximetry 94 07/29/22 15:17 Oxygen Delivery Me thod Room Air 07/29/22 09:00 MDM - Back Pain/Injury Medical Decision Making Initially patient complaining of pain after she had a twisting like injury she had problems with her back past the previously been seen at the pain clinic. She did not show any improvement complaining more abdominal discomfort despite medications she was concerned she may have something intra-abdominal. We did do more expanded work-up including a CBC CMP and UA all of which was relatively unremarkable CT of the abdomen pelvis is negative. She is now able to walk although she still has some pain. We will discharge her home with tizanidine prednisone taper diclofenac hydrocodone. We discussed possible admission she was concerned about how she will care for herself. Discussed that she may need to go to intermediate for a while to rehab if she is having that much difficulty also discussed possibility of pain clinic she does not want to do either of these things. We will discharge her home with medication as above and have her follow-up with her primary care doctor. Medical Records I reviewed the patient's medical records. Labs I reviewed the patient's lab results. 07/29/22 12:41 07/29/22 12:41 Radiology Impressions Abdomen/Pelvis CT 07/29/22 12:25 IMPRESSION: 1. No acute abdominal or pelvic abnormalities are identified. 2. Prior cholecystectomy and hysterectomy. 3. Severe hepatic steatosis. 4. Stable LEFT renal cyst. 5. No lumbar spine fracture. Laboratory Results WBC 10.1 10^3/uL (4.0-10.0) H 07/29/22 12:41 RBC 4.87 10^6/uL (4.1-5.3) 07/29/22 12:41 Hgb 14.1 g/dL (11.5-15.3) 07/29/22 12:41 Hct 45.3 % (37.0-47.0) 07/29/22 12:41 MCV 93.0 fl (81-99) 07/29/22 12:41 MCH 29.0 pg (28.0-34.0) 07/29/22 12:41 MCHC 31.1 g/dL (30.0-36.0) 07/29/22 12:41 RDW 13.2 % (12.1-15.1) 07/29/22 12:41 Plt Count 202 10^3/cmm (130-400) 07/29/22 12:41 MPV 10.4 fL (7.4-10.4) 07/29/22 12:41 Neut % (Auto) 83.6 % 07/29/22 12:41 Lymph % (Auto) 13.4 % 07/29/22 12:41 [place] % (Auto) 1.7 % 07/29/22 12:41 Eos % (Auto) 0.3 % 07/29/22 12:41 Baso % (Auto) 0.4 % 07/29/22 12:41 Neut # (Auto) 8.44 10^3/uL (1.8-7.7) H 07/29/22 12:41 Lymph # (Auto) 1.4 10^3/uL (0.8-4.8) 07/29/22 12:41 [place] # (Auto) 0.2 10^3/uL (0.2-0.9) 07/29/22 12:41 Eos # (Auto) 0.0 10^3/uL (0.0-0.8) 07/29/22 12:41 Baso # (Auto) 0.0 10^3/uL (0.0-0.1) 07/29/22 12:41 Nucleated RBC % (auto) 0 % 07/29/22 12:41 Nucleated RBCs # 0.0 /100WBC 07/29/22 12:41 Sodium 134 mmol/L (136-145) L 07/29/22 12:41 Potassium 4.9 mmol/L (3.5-5.1) 07/29/22 12:41 Chloride 98 mmol/L (98-107) 07/29/22 12:41 Carbon Dioxide 28 mmol/L (22-29) 07/29/22 12:41 Anion Gap 12.9 (5-19) 07/29/22 12:41 BUN 9 mg/dL (6-20) 07/29/22 12:41 Creatinine 0.4 mg/dL (0.5-0.9) L 07/29/22 12:41 GFR Calculation 164.5 mL/min (90-130) H 07/29/22 12:41 Glucose 173 mg/dL (65-115) H 07/29/22 12:41 Calculated Osmolality 281 mOsm/kg (285-295) L 07/29/22 12:41 Calcium 9.5 mg/dL (8.5-10.5) 07/29/22 12:41 Total Bilirubin 0.3 mg/dL (0.15-1.2) 07/29/22 12:41 AST 31 U/L (0-32) 07/29/22 12:41 ALT 14 U/L (0-33) 07/29/22 12:41 Alkaline Phosphatase 86 U/L (35-105) 07/29/22 12:41 Total Protein 7.7 g/dL (6.6-8.7) 07/29/22 12:41 Albumin 4.0 g/dL (3.5-5.2) 07/29/22 12:41 Globulin 3.7 g/dL (1.3-4.6) 07/29/22 12:41 Urine Color Yellow (Yellow) 07/29/22 13:45 Urine Appearance Clear (CLEAR) 07/29/22 13:45 Urine pH 6 (5-7) 07/29/22 13:45 Ur Specific [place] 1.015 (1.005-1.030) 07/29/22 13:45 Urine Protein Neg (Negative) 07/29/22 13:45 Urine Glucose (UA) Norm (Normal) 07/29/22 13:45 Urine Ketones Negative (Negative) 07/29/22 13:45 Urine Blood Neg (Negative) 07/29/22 13:45 Urine Nitrate Negative (Negative) 07/29/22 13:45 Urine Bilirubin Neg (Negative) 07/29/22 13:45 Urine Urobilinogen Norm mg/dL (Negative) 07/29/22 13:45 Ur Leukocyte Esterase Negative (Negative) 07/29/22 13:45 Discharge Plan Discharge Patient Disposition: Home Clinical Impression: Musculoskeletal back pain Condition: Stable Prescriptions: New tizanidine 4 mg tablet 4 mg PO Q6H PRN (Reason: muscle spasticity) Qty: 20 0RF Rx Instructions: do not exceed 3 doses per 24 hrs hydrocodone-acetaminophen 5-325 mg tablet 1 tab PO Q6H PRN (Reason: pain) Qty: 15 0RF prednisone 20 mg tablet 20 mg PO TID Qty: 15 0RF Rx Instructions: 1 p.o. 3 times daily x3 days, 1 p.o. twice daily x2 days, 1 p.o. daily x2 days diclofenac sodium 75 mg tablet,delayed release (DR/EC) 75 mg PO Q12H PRN (Reason: pain) Qty: 20 0RF No Action (DME) manual wheelchair See Rx Instructions .Route .MEDSUPPLY Qty: 1 0RF Rx Instructions: As directed albuterol sulfate 90 mcg/actuation HFA aerosol inhaler 2 inh INHALATION Q6H PRN (Reason: shortness of breath or wheezing) Qty: 18 3RF ipratropium-albuterol 0.5 mg-3 mg(2.5 mg base)/3 mL solution for nebulization 3 ml inhalation Q6H PRN (Reason: shortness of breath or wheezing) Qty: 180 3RF amitriptyline 50 mg tablet 50 mg PO BEDTIME Qty: 90 1RF aspirin 81 mg Tablet,Chewable 81 mg PO QAM fluticasone propion-salmeterol [Advair Diskus] 250-50 mcg/dose blister with device 1 inh inhalation BID Qty: 60 1RF famotidine 20 mg tablet 20 mg PO BID escitalopram oxalate [Lexapro] 10 mg tablet 10 mg PO BEDTIME ondansetron HCl 4 mg tablet 4 mg PO Q8H PRN (Reason: nausea and vomiting) Qty: 10 0RF gabapentin 600 mg tablet 600 mg PO TID Discharge Orders: Discharge ED (Routine); Ordered 07/29/22 Ordered By: Dheeraj Suarez Referrals: Benson Deleon DO [Primary Care Provider] - Patient Instructions: Opioid Safety, Pain Management Coding Level of Care Code ED High Speed Operator for Abdirahman Hill
[2022-07-29] MEDS: morphine 4 mg/mL SDV 1 mL IVP ×3 (09:30→12:12)
[2022-07-29] MEDS: dexamethasone 10 mg/mL INJ IVP (09:30)
[2022-07-29] MEDS: promethazine 25 mg/mL SDV 1 mL IM (09:31)
[2022-07-29] MEDS: tizanidine 4 mg Tablet PO (12:12)
--- NOTE | 2022-07-29 12:25 | CT_ITS ---
WS: [id number] CT ABDOMEN AND PELVIS NONCONTRAST HISTORY: back pain/abd pain TECHNIQUE: Imaging performed through the abdomen and pelvis. Coronal and sagittal reformats are submi tted. All CT scans at [facility] use at least one of these dose optimization techniques: auto mated exposure control; mA and/or kV adjustment per patient size (includes targeted exams where dose is matched to clinical indication); or iterative reconstruction. DLP: 1377.33 mGy.cm COMPARISON: 02/12/2022 Lower thorax: Noncalcified 3 mm nodular the RIGHT lung base is stable over multiple prior exams. Hear t size is normal. Very small hiatal hernia. Liver: Mildly enlarged liver with severe hepatic steatosis. Gallbladder: Prior cholecystectomy. Pancreas: Normal size and attenuation. Normal pancreatic duct. No pancreatitis or mass. Spleen: Normal. Adrenal glands: Stable RIGHT adrenal adenoma measures 2.2 cm. Normal LEFT adrenal gland. Right kidney: Normal size kidney with no mass or hydronephrosis. Left kidney: Normal size kidney. There is a large parapelvic cyst which is reidentified. No obstructi on of the kidney. Aorta: Normal abdominal aorta, no aneurysm or atherosclerosis. No free fluid, intraperitoneal air or significant lymphadenopathy. GI tract: Normal noncontrast imaging of the stomach, small bowel and colon. No obstruction or wall th ickening. Normal appendix. Abdominal wall: Negative. No hernia. Pelvis: Prior hysterectomy. No free fluid or adenopathy. No fluid or hernia. Osseous structures: Mild degenerative disc disease. No lumbar spine fracture identified. CT/CT abdomen pelvis wo con [id number] IMPRESSION: 1. No acute abdominal or pelvic abnormalities are identified. 2. Prior cholecystectomy and hysterectomy. 3. Severe hepatic steatosis. 4. Stable LEFT renal cyst. 5. No lumbar spine fracture.
[2022-07-29 13:04] LABS: Basophils % 0.4 %; Eosinophils % 0.3 %; Hematocrit 45.3 % (37.0-47.0); Hemoglobin 14.1 g/dL (11.5-15.3); Lymphocytes # 1.4 10^3/uL (0.8-4.8); Lymphocytes % 13.4 %; Mean Corpuscular HGB Conc 31.1 g/dL (30.0-36.0); Mean Platelet Volume 10.4 fL (7.4-10.4); Monocytes # 0.2 10^3/uL (0.2-0.9); Monocytes % 1.7 %; Neutrophils # 8.44 10^3/uL (1.8-7.7); Neutrophils % 83.6 %; Nucleated Red Blood Cells % 0 %; Platelet Count 202 10^3/cmm (130-400); Red Blood Count 4.87 10^6/uL (4.1-5.3); Red Cell Distribution Width 13.2 % (12.1-15.1); White Blood Count 10.1 10^3/uL (4.0-10.0)
[2022-07-29 13:23] LABS: Alanine Aminotransferase 14 U/L (0-33); Alkaline Phosphatase 86 U/L (35-105); Anion Gap 12.9 (5-19); Aspartate Amino Transferase 31 U/L (0-32); Blood Urea Nitrogen 9 mg/dL (6-20); Calcium 9.5 mg/dL (8.5-10.5); Carbon Dioxide 28 mmol/L (22-29); Chloride 98 mmol/L (98-107); Globulin 3.7 g/dL (1.3-4.6); Glomerular Filtration Rate 164.5 mL/min (90-130); Glucose 173 mg/dL (65-115); Osmolality Calculated 281 mOsm/kg (285-295); Potassium 4.9 mmol/L (3.5-5.1); Sodium 134 mmol/L (136-145); Total Bilirubin 0.3 mg/dL (0.15-1.2); Total Protein 7.7 g/dL (6.6-8.7)
[2022-07-29 14:24] LABS: Add Urine Microscopic? NO; Charge for UA Resulting for Rev
[2022-07-29 14:26] LABS: Bilirubin Urine Neg (Negative); Blood Urine Neg (Negative); Glucose Urine UA Norm (Normal); Ketones Urine Negative (Negative); Leukocyte Esterase Urine Negative (Negative); Nitrate Urine Negative (Negative); Protein Urine Neg (Negative); Specific Gravity, Urine 1.015 (1.005-1.030); Urine Appearance Clear (CLEAR); Urine Color Yellow (Yellow); Urobilinogen Urine Norm (Negative); pH Urine 6 (5-7)
== END 2022-07-29 15:18 | disposition home or self-care (01) ==
PROVIDERS: Emergency Provider Family Medicine; PCP Family Medicine
DX: M54.50 Low back pain, unspecified (principal)
CPT/HCPCS: 36415; 74176; 80053; 81003; 85025; 96372; 96374; 96375; 96376; 99285; J1100; J2270; J2550

== ENCOUNTER → 2022-10-01 08:22 | Outpatient (BNVA) | payer MEDICAID, SELFPAY | PROVIDERS: Visit Provider Family Medicine | DX: G47.33 Obstructive sleep apnea (adult) (pediatric); J44.9 Chronic obstructive pulmonary disease, unspecified; F32.1 Major depressive disorder, single episode, moderate; G47.00 Insomnia, unspecified; R73.09 Other abnormal glucose; G89.29 Other chronic pain; R91.1 Solitary pulmonary nodule; F17.200 Nicotine dependence, unspecified, uncomplicated; K21.9 Gastro-esophageal reflux disease without esophagitis; Z86.59 Personal history of other mental and behavioral disorders; Z71.6 Tobacco abuse counseling; M19.90 Unspecified osteoarthritis, unspecified site | CPT/HCPCS: 80053; 80061; 83036; 84439; 84443 ==

== ENCOUNTER 2022-11-09 09:00 | Outpatient (CLI) | payer MEDICAID, SELFPAY | END 2022-11-09 09:01 | disposition home or self-care (01) | LOC: SLEEP 11-11 09:18 | PROVIDERS: Visit Provider Family Medicine | DX: G47.33 Obstructive sleep apnea (adult) (pediatric) (principal) | CPT/HCPCS: G0399 ==

== ENCOUNTER 2022-11-17 08:26 | Outpatient (CLI) | payer MEDICAID, SELFPAY ==
--- NOTE | 2022-11-17 08:49 | CT_ITS ---
WS: [id number] LDCT LUNG CANCER SCREENING TECHNIQUE: Noncontrast CT of the chest with coronal and sagittal reformatted images. CLINICAL INFORMATION: pulmonary nodule, lung CA screening COMPARISON: None. DLP: 311.59 mGy.cm DIvol: Mean CTDIvol: 9.20 (mGy) All CT scans at [facility] use at least one of these dose optimization techniques: automat ed exposure control; mA and/or kV adjustment per patient size (includes targeted exams where dose is matched to clinical indication); or iterative reconstruction. FINDINGS: 6 x 8 mm noncalcified nodule RIGHT lower lobe laterally. Subsegmental atelectasis in the li ngula and LEFT lower lobe. Subpleural opacity or fibrosis RIGHT upper lobe anterior medially measurin g 10 mm. 2.2 cm RIGHT adrenal adenoma. LEFT adrenal gland is normal. Enlarged RIGHT thyroid lobe. Normal GE ju nction. Trace pericardial fluid. Normal caliber thoracic aorta. Aortic calcification. No mediastinal or hilar lymphadenopathy. No axillary lymphadenopathy. Mild thoracic kyphosis. Hypertrophic changes t horacic spine. IMPRESSION: Enlarged RIGHT thyroid lobe. This can be further evaluated with ultrasound. 6 x 8 mm noncalcified nodule RIGHT lower lobe. Recommend 6-month follow-up LDCT. CT/CT lung screening [id number] LUNG-RADS: 3S-Probably Benign with Significant Findings FOLLOW UP: 6 Month LDCT
== END 2022-11-17 08:27 | disposition home or self-care (01) ==
PROVIDERS: PCP Family Medicine; Visit Provider Family Medicine
DX: Z12.2 Encounter for screening for malignant neoplasm of respiratory organs (principal); F17.219 Nicotine dependence, cigarettes, with unspecified nicotine-induced disorders; J44.9 Chronic obstructive pulmonary disease, unspecified; R91.1 Solitary pulmonary nodule
CPT/HCPCS: 71271; 80053; 80061; 83036; 84439; 84443

== ENCOUNTER → 2022-12-06 11:49 | Outpatient (BNVA) | payer MEDICAID, SELFPAY | PROVIDERS: PCP Family Medicine; Visit Provider Family Medicine | DX: G89.29 Other chronic pain (principal); R11.0 Nausea; R52 Pain, unspecified | CPT/HCPCS: 73110 ==

== ENCOUNTER 2022-12-16 16:23 | Emergency (ER) | payer MEDICAID, SELFPAY ==
[2022-12-16 16:31] VITALS: BP 150/113; PULSE 92; O2SAT 93; BMI 34.8
--- NOTE | 2022-12-16 16:46 | XRR_ITS ---
PROCEDURE INFORMATION: Exam: XR Bilateral Hips Exam date and time: 12/16/2022 5:33 PM Age: 57 years old Clinical indication: Injury or trauma; Fall; Additional info: Fall, pain TECHNIQUE: Imaging protocol: Radiologic exam of the bilateral hips. Views: 2 views of hips with pelvis when performed. COMPARISON: CT abdomen pelvis wo con [id number] 07/29/2022 1:20 PM FINDINGS: Bones/joints: Unremarkable. No acute fracture. Soft tissues: Unremarkable. XR/XR hip BI 3-4V wo/w pel [id number] IMPRESSION: No acute findings.
--- NOTE | 2022-12-16 16:46 | W.ED.EXTPRO ---
HPI - Extremity Problem General: Chief complaint: Extremity Injury, Upper Stated complaint: fall wrist pain Time Seen by Provider: 12/16/22 16:28 History of Present Illness: 57-year-old female presents to the emergency department with complaints of right hip pain, upper back pain and bilateral shoulder pain. She states she was sitting in a metal and cannabis folding chair when the chair broke and she fell onto the ground. She states she also fell backwards hitting her back and shoulder on a tree that was behind her. States that she had a previous left wrist injury and has a splint in place from that presentation. She does not complain of any additional pain to the left wrist. She does appear to be very upset and is currently crying. She denies loss of consciousness. She states her pain is a 10 out of 10 and describes it as all over pain. Review of Systems General: Reports: 10 or more systems reviewed and unremarkable except in HPI and below Musc: Reports: back pain, extremity pain and joint pain PFS ED PFSH: Medical History delivery delivered Chronic cystitis Community acquired pneumonia Constipation Hematochezia History of bipolar disorder History of hypertension History of stroke Insomnia Pulmonary nodules Rheumatoid arthritis Surgical History History of cholecystectomy History of hysterectomy History of incisional hernia repair History of knee surgery History of tonsillectomy Family History Mother , at age 78 COVID-19 Brother , at age 58 Cancer Colon Father , at age 45 Car occupant injured in traffic accident Cancer Colon Family/Other Cancer Paternal-lung Other Chronic kidney disease (CKD) Dementia Diabetes Hyperlipidemia Hypertension Lung disease Stroke Denies family history of CAD (coronary artery disease) Clotting disorder Psychiatric illness Anesthesia complication Bleeding disorder Social History Smoking and tobacco/nicotine status: current every day tobacco/nicotine user cigarettes Packs smoked per day: 1 Years cigarettes smoked: 30 [ Other cigarette details: Currently smoking 0.5 ppd and vaping.] Quit status (tobacco/nicotine): considering quitting Alcohol intake: never Substance/Drug Use: former Adopted: No Lives independently: Yes Household members: spouse Marital status: Number of grandchildren: 2 Current occupational status: disabled Special sherine needs: No Agree to transfusion: Yes Female Reproductive History: Spontaneous abortions: No Physical Exam Const: COMMON NORMALS: no acute distress, patient oriented x3 and alert HENMT: COMMON NORMALS: normocephalic, atraumatic, Normal external nose present and moist oral mucous membranes HEAD & SCALP: normocephalic and atraumatic NOSE: Normal external nose present Eye: COMMON NORMALS: Equal, round and reactive pupils present and EOMs intact bilaterally PUPIL: Yes Equal, round and reactive pupils present Neck/C-Spine: COMMON NORMALS: full ROM, supple and no meningeal signs Chest: COMMONS NORMALS: normal inspection of the chest and normal palpation of entire chest wall Resp: COMMON NORMALS: normal respiratory effort and clear to auscultation bilaterally AUSCULTATION: clear to auscultation bilaterally Cardio: COMMON NORMALS: regular rate, regular rhythm, S1 normal heart sound present, S2 normal heart sound present and Peripheral pulses 2+ throughout RATE: regular rate RHYTHM: regular rhythm HEART SOUNDS: S1 normal heart sound present and S2 normal heart sound present PERIPHERAL PULSES: Peripheral pulses 2+ throughout GI: COMMON NORMALS: Normal to inspection, nondistended, normoactive bowel sounds present, Soft to palpation and non-tender PALPATION: Yes Soft to palpation : COMMON NORMALS: Yes no CVA tenderness BLADDER/KIDNEY EXAM: Yes no CVA tenderness Back/Pelvis: COMMON NORMALS: no CVA tenderness, thoracic and lumbar spine normal to inspection, no thoracic nor lumbar tenderness and thoraco-lumbar ROM normal Extremity: COMMON NORMALS: normal to inspection, full ROM and capillary refill normal RIGHT UPPER EXTREMITY: Yes shoulder joint Right shoulder: Yes Right shoulder joint inspection exam (Normal inspection,), Yes palpation, Yes Right shoulder joint ROM exam (Full range of motion without limitations), Yes Right shoulder joint neurovascular exam (Neurovascular intact) and Yes Right shoulder joint other findings (Musculoskeletal tenderness noted) LEFT UPPER EXTREMITY: Yes upper arm Left upper arm: Yes inspection (Normal findings), Yes palpation (Musculoskeletal tenderness noted.) and Yes neurovascular exam (Intact) Neuro: GLADYS COMA SCALE: document GCS findings [place] coma scale eye opening: Spontaneous Gladys coma scale verbal response: Orientated Gladys coma scale motor response: Obey commands Gladys coma scale total score: 15 COMMON NORMALS: patient oriented x3, moves all extremities and no focal motor deficits SENSORIUM/ORIENTATION: Yes alert MENINGEAL SIGNS: Yes no meningeal signs Psych: COMMON NORMALS: mental status grossly normal, Normal thought process present and cooperative THOUGHT PROCESS: Normal thought process present Skin: COMMON NORMALS: no rashes or lesions noted and turgor normal GENERAL SKIN EXAM: no rashes or lesions noted and turgor normal Course Vital Signs: Vital signs: Vital Signs Pulse Rate 92 12/16/22 16:31 Blood Pressure 150/113 12/16/22 16:31 Pulse Oximetry 93 12/16/22 16:31 Oxygen Delivery Me thod Nasal Cannula 12/16/22 16:31 Oxygen Flow Rate 3 12/16/22 16:31 MDM - Extremity (Nontraumatic) Medical Decision Making Physical exam completed and documented, patient's generalized stated complaints appear to be significantly out of proportion to physical exam findings. Lab Data Radiology Impressions Hip/Pelvis X-Ray 12/16/22 16:46 IMPRESSION: No acute findings. Lumbar Spine X-Ray 12/16/22 16:47 IMPRESSION: 1. No acute fracture or listhesis. 2. Multilevel moderate degenerative disc disease throughout the lumbar spine. Thoracic Spine X-Ray 12/16/22 16:47 IMPRESSION: No acute fracture or listhesis of the thoracic or upper lumbar spine. All radiology interpretation(s) finalized by discharge Discharge Plan Discharge Patient Disposition: Home Clinical Impression: Fall, Back pain Condition: Stable Prescriptions: No Action (DME) manual wheelchair See Rx Instructions .Route .MEDSUPPLY Qty: 1 0RF Rx Instructions: As directed (DME) TENS unit and equipment See Rx Instructions .Route .MEDSUPPLY Qty: 1 0RF Rx Instructions: As directed (DME) electric motorized wheelchair See Rx Instructions .Route .MEDSUPPLY Qty: 1 0RF Rx Instructions: As directed atorvastatin [Lipitor] 40 mg tablet 40 mg PO DAILY Qty: 90 1RF metformin 500 mg tablet 500 mg PO BID Qty: 60 3RF quetiapine 100 mg tablet 100 mg PO .qhs Qty: 90 1RF escitalopram oxalate [Lexapro] 20 mg tablet 20 mg PO DAILY Qty: 90 2RF promethazine 25 mg tablet 25 mg PO TID PRN (Reason: nausea and vomiting) Qty: 30 1RF hydrocodone-acetaminophen 7.5-325 mg tablet 1 tab PO BID PRN (Reason: pain) 30 Days Qty: 60 0RF (DME) Left wrist brace See Rx Instructions .Route .MEDSUPPLY Qty: 1 0RF Rx Instructions: As directed meloxicam 15 mg tablet 15 mg PO DAILY Qty: 30 2RF ipratropium-albuterol 0.5 mg-3 mg(2.5 mg base)/3 mL solution for nebulization 3 ml inhalation Q6H PRN (Reason: shortness of breath or wheezing) Qty: 180 5RF (DME) wheelchair See Rx Instructions .Route .MEDSUPPLY Qty: 1 0RF Rx Instructions: As directed (DME) CPAP 6-16cm setting See Rx Instructions .ROUTE .MEDSUPPLY Qty: 1 0RF Rx Instructions: As directed (DME) CPAP mask, tubing, supplies See Rx Instructions .ROUTE .MEDSUPPLY Qty: 1 1RF Rx Instructions: As directed gabapentin 600 mg tablet 600 mg PO TID Qty: 180 1RF famotidine 20 mg tablet See Rx Instructions .ROUTE .COMPLEX Qty: 60 1RF Dose Instruction: TAKE 1 TABLET BY MOUTH TWICE A DAY Rx Instructions: TAKE 1 TABLET BY MOUTH TWICE A DAY tizanidine 4 mg tablet See Rx Instructions .ROUTE .COMPLEX Qty: 60 0RF Dose Instruction: TAKE 1 TABLET BY MOUTH EVERY 8 HOURS NEEDED FOR MUSCLE SPASTICITY Rx Instructions: TAKE 1 TABLET BY MOUTH EVERY 8 HOURS NEEDED FOR MUSCLE SPASTICITY aspirin 81 mg Tablet,Chewable 81 mg PO QAM fluticasone propion-salmeterol [Advair Diskus] 250-50 mcg/dose blister with device 1 inh inhalation BID Qty: 60 3RF Discharge Orders: Discharge ED (Routine); Ordered 12/16/22 Ordered By: Sav Acuna Referrals: Robbie Burrell MD [Primary Care Provider] - Discharge Diet: Advance as tolerated Discharge Activity: Resume usual activity Patient Instructions: Opioid Safety, Pain Management Coding Level of Care Code ED Green Lumber Grader for Abdirahman Hill
--- NOTE | 2022-12-16 16:47 | XRR_ITS ---
PROCEDURE INFORMATION: Exam: XR Thoracic Spine Exam date and time: 12/16/2022 5:33 PM Age: 57 years old Clinical indication: Injury or trauma; Fall TECHNIQUE: Imaging protocol: Radiologic exam of the thoracic spine. Views: 3 views. COMPARISON: CT lung screening [id number] 11/17/2022 8:55 AM FINDINGS: Bones/joints: No acute fracture or listhesis of the thoracic or upper lumbar spine. Multilevel degenerative disc disease throughout the thoracic and upper lumbar spine. Soft tissues: Unremarkable. XR/XR thoracic spine 3V* [id number] IMPRESSION: No acute fracture or listhesis of the thoracic or upper lumbar spine.
--- NOTE | 2022-12-16 16:47 | XRR_ITS ---
PROCEDURE INFORMATION: Exam: XR Lumbosacral Spine Exam date and time: 12/16/2022 5:33 PM Age: 57 years old Clinical indication: Injury or trauma; Fall TECHNIQUE: Imaging protocol: Radiologic exam of the lumbosacral spine. Views: 2 or 3 views. COMPARISON: CT lumbar spine wo con* [id number] 09/19/2019 5:21 PM FINDINGS: Bones/joints: Moderate degenerative disc T12-L1, L2-L3, L3-L4, L4-L5 and L5-S1. No acute fracture or listhesis. Soft tissues: Unremarkable. XR/XR lumbar spine 2-3V* [id number] IMPRESSION: 1. No acute fracture or listhesis. 2. Multilevel moderate degenerative disc disease throughout the lumbar spine.
[2022-12-16] MEDS: cetirizine 10 mg Tablet PO (17:21)
== END 2022-12-16 20:40 | disposition home or self-care (01) ==
PROVIDERS: Emergency Provider Internal Medicine; PCP Family Medicine
DX: M54.6 Pain in thoracic spine (principal); M51.36 Other intervertebral disc degeneration, lumbar region; Z79.82 Long term (current) use of aspirin; Z79.84 Long term (current) use of oral hypoglycemic drugs; F17.210 Nicotine dependence, cigarettes, uncomplicated; I10 Essential (primary) hypertension; Z86.73 Personal history of transient ischemic attack (TIA), and cerebral infarction without residual deficits
CPT/HCPCS: 72072; 72100; 73522; 99284

== ENCOUNTER 2023-01-01 13:14 | Inpatient (IN) | payer MEDICAID, SELFPAY ==
[2023-01-01] VITALS (13 sets, daily range): BP systolic 114–168; BP diastolic 68–103; PULSE 67–92; RESP 17–25; TEMP 36.5–36.9; O2SAT 91–96; BMI 46.1
--- NOTE | 2023-01-01 13:15 | ECG_ITS ---
[facility] Test Date: 2023-01-01 Pat Name: Cyndi Baca Department: Room: Gender: Female Silhouette Artist: : 1965 Requested By: Dheeraj Ortiz Order Number: [id number] Ramila MD: Мария Encinas M.D. Measurements Intervals [place] Rate: 90 P: 28 SC: 162 QRS: -16 QRSD: 89 T: 60 QT: 368 QTc: 451 Interpretive Statements SINUS RHYTHM WITH OCCASIONAL VENTRICULAR PREMATURE COMPLEXES POSSIBLE LEFT VENTRICULAR HYPERTROPHY [VOLTAGE CRITERIA PLUS LAE OR QRS WIDENING] POSSIBLE SEPTAL MYOCARDIAL INFARCTION , PROBABLY OLD [30 ms Q WAVE IN V1/V2] Compared to ECG 06/29/2022 13:48:21 No significant changes Electronically Signed On 01-01-2023 15:40:59 MAGNETIC RESONANCE TECHNOLOGIST by Маиря Encinas M.D. [email or web address]
--- NOTE | 2023-01-01 13:15 | XRR_ITS ---
PROCEDURE INFORMATION: Exam: XR Chest Exam date and time: 01/01/2023 1:26 PM Age: 57 years old Clinical indication: Cough and dyspnea; Additional info: Dyspnea/cough TECHNIQUE: Imaging protocol: Radiologic exam of the chest. Views: 1 view. COMPARISON: CT lung screening [id number] 11/17/2022 8:55 AM FINDINGS: Lungs: Bibasilar atelectasis. No focal consolidation. Pleural spaces: No pleural effusion. No pneumothorax. Heart/Mediastinum: No cardiomegaly. Bones/joints: No acute findings. XR/XR chest 1V portable [id number] IMPRESSION: No acute findings.
[2023-01-01] MEDS: ipratropium-albuterol 3 mL Neb INHALATION ×2 (13:35→21:07)
[2023-01-01 13:43] LABS: ABG PCO2 55.8 mmHg (35-45); ABG PH Result 7.36 (7.35-7.45); Alveolar-Arterial Oxygen Gradi 4.6 mmHg (5-10); Arterial Blood Gas Hematocrit 40.7 % (37-47); Base Excess ABG 4.9 mmol/L (-2.0-2.0); Blood Gas Allen Test Pos; Blood Gas Operator Identificat CAK; Blood Gas Sample Site Radial, left; Blood Gas Sample Type Arterial; Carboxyhemoglobin 6.6 %THgb (0.4-20.1); HCO3 ABG 31.8 mmol/L (22-26); HGB O2 Sat 78.8 % (95-100); Ionized Calcium Level - ABG 1.2 mmol/L (1.1-1.4); Methemoglobin 0.4 % (0.4-1.5); Oxygen Device ROOM AIR; Oxygen Saturation ABG 84.7; PO2 ABG 47.5 mmHg (80.0-100.0); PO2 FiO2 Ratio Arterial Blood 0; Total Hemoglobin 13.3 g/dL (12-16)
[2023-01-01] MEDS: dexamethasone 10 mg/mL INJ IM (14:05)
[2023-01-01 14:25] LABS: Influenza A by IFA negative (Negative); Influenza B by IFA negative (Negative)
[2023-01-01] MEDS: acetaminophen 500 mg Tablet 1000 MG PO (14:51)
--- NOTE | 2023-01-01 15:07 | ED_ITS ---
HPI - SOB/Dyspnea General: Chief Complaint: Shortness of Breath/Dyspnea Stated Complaint: RESP DISTRESS Time Seen by Provider: 01/01/23 13:15 Source: patient Mode of arrival: ambulatory History of Present Illness: HPI Narrative: 49-year-old female who presents to the emergency room complaining of increasing shortness of breath headache nausea and vomiting that started about 3 days ago. She also complaining of abdominal discomfort and shortness of breath normally she does not wear oxygen during the day only at night for the last couple days she has been wearing it during the day as well. She is satting in the low 90s on 3 L by nasal cannula. She last used a nebulizer this morning about 8 AM. D enies diarrhea. She does have some rib pain from chronic coughing. MD elicited complaint: shortness of breath and cough Pertinent past history: COPD Onset (ago): day(s) (3) Timing: constant Exacerbating factors: exertion and coughing Relieving factors: oxygen, rest and bronchodilators Known history of: COPD Associated symptoms: Reports abdominal pain, chest congestion and cough; Deny chest pain, diaphoresis, dizziness, extremity pain, fever(s), hemoptysis, lightheadedness, myalgias, nausea, orthopnea, palpitations, paresthesias, polydipsia, polyuria, rash, sense of impending doom, syncope or vomiting Treatment prior to arrival: oxygen and bronchodilator Review of Systems Const: Reports: fatigue and malaise; Denies: fever(s), chills or diaphoresis Card: Denies: chest pain, palpitations, lightheadedness, syncope or orthopnea Resp: Reports: dyspnea, non-productive cough, wheezing and chest congestion; Denies: hemoptysis GI: Reports: abdominal pain; Denies: nausea or vomiting : Denies: dysuria, urinary frequency or urinary urgency Musc: Denies: extremity pain Skin/Breast: Denies: rash Neuro: Denies: dizziness Endo: Denies: polyuria or polydipsia [facility] ED PFSH: Medical History delivery delivered Chronic cystitis Community acquired pneumonia Constipation Hematochezia History of bipolar disorder History of hypertension History of stroke Insomnia Pulmonary nodules Rheumatoid arthritis Surgical History History of cholecystectomy History of hysterectomy History of incisional hernia repair History of knee surgery History of tonsillectomy Family History Mother , at age 78 COVID-19 Brother , at age 58 Cancer Colon Father , at age 45 Car occupant injured in traffic accident Cancer Colon Family/Other Cancer Paternal-lung Other Chronic kidney disease (CKD) Dementia Diabetes Hyperlipidemia Hypertension Lung disease Stroke Denies family history of CAD (coronary artery disease) Clotting disorder Psychiatric illness Anesthesia complication Bleeding disorder Social History Smoking and tobacco/nicotine status: current every day tobacco/nicotine user cigarettes Packs smoked per day: 1 Years cigarettes smoked: 30 [ Other cigarette details: Currently smoking 0.5 ppd and vaping.] Quit status (tobacco/nicotine): considering quitting Alcohol intake: never Substance/Drug Use: former Adopted: No Lives independently: Yes Household members: spouse Marital status: Number of grandchildren: 2 Current occupational status: disabled Special sherine needs: No Agree to transfusion: Yes Female Reproductive History: Spontaneous abortions: No Physical Exam Const: GENERAL APPEARANCE: cooperative and comfortable ORIENTATION/CONSCIOUSNESS: Yes awake, Yes oriented to person, Yes oriented to place and Yes oriented to time HENMT: COMMON NORMALS: normocephalic, atraumatic and hearing grossly normal bilaterally HEAD & SCALP: normocephalic and atraumatic Resp: COMMON NORMALS: normal respiratory effort, No retractions and No use of accessory muscles AUSCULTATION: rhonchi and wheezes Cardio: COMMON NORMALS: regular rate, regular rhythm and No murmurs present (Cardio) RATE: regular rate RHYTHM: regular rhythm GI: COMMON NORMALS: Soft to palpation and No hepatosplenomegaly present AUSCULTATION: Yes normoactive bowel sounds PALPATION: Yes Soft to palpation, No Tenderness to palpation present (GI), No Guarding due to palpation present (GI) and Yes No hepatosplenomegaly present Extremity: COMMON NORMALS: normal to inspection, capillary refill normal, no clubbing, cyanosis or edema, no calf tenderness and no pedal edema Neuro: SENSORIUM/ORIENTATION: Yes oriented to person, Yes oriented to place and Yes oriented to time Skin: COMMON NORMALS: no rashes or lesions noted GENERAL SKIN EXAM: no rashes or lesions noted Course Vital Signs: Vital signs: Vital Signs Temperature 97.6 F 01/04/23 10:34 Pulse Rate 81 01/04/23 10:34 Respiratory Rate 18 01/04/23 10:34 Blood Pressure 161/96 01/04/23 10:34 Pulse Oximetry 98 01/04/23 10:34 Oxygen Delivery Me thod Nasal Cannula 01/04/23 08:19 Oxygen Flow Rate 3 01/04/23 08:19 MDM - SOB/Dyspnea Medical Decision Making Admit for acute on chronic respiratory failure secondary to COVID and exacerbation COPD. Discussed with hospitalist start steroids remdesivir orders written Medical Records I reviewed the patient's medical records. Lab Data I reviewed the patient's lab results. 01/04/23 06:21 01/04/23 06:21 Labs/Radiology: Radiology Impressions Chest X-Ray 01/01/23 13:15 IMPRESSION: No acute findings. Chest CTA 01/02/23 10:25 IMPRESSION: No evidence of central pulmonary embolism. Diffuse ground-glass opacities which may reflect any combination of perfusional variation, edema or infectious/inflammatory process depending on clinical correlation. No dense focal consolidation. Unchanged 8 mm right lower lobe pulmonary nodule. 4 cm diameter of the main pulmonary trunk suggestive of pulmonary hypertension. Laboratory Results WBC 8.99 10^3/uL (3.29-11.43) 01/01/23 13:01 RBC 4.52 10^6/uL (3.85-5.65) 01/01/23 13:01 Hgb 13.40 g/dL (11.27-16.99) 01/01/23 13:01 Hct 43.2 % (36-47) 01/01/23 13:01 MCV 95.6 fl (85-98) 01/01/23 13:01 MCH 29.6 pg (27-33) 01/01/23 13:01 MCHC 31.0 g/dL (30-55) 01/01/23 13:01 RDW 13.8 % (12.1-15.1) 01/01/23 13:01 Plt Count 174 10^3/cmm (157-399) 01/01/23 13:01 MPV 12.2 fL (7.4-10.4) H 01/01/23 13:01 Neut % (Auto) 49.0 % 01/01/23 13:01 Lymph % (Auto) 40.6 % 01/01/23 13:01 [place] % (Auto) 7.9 % 01/01/23 13:01 Eos % (Auto) 1.9 % 01/01/23 13:01 Baso % (Auto) 0.3 % 01/01/23 13:01 Neut # (Auto) 4.40 10^3/uL (1.8-7.7) 01/01/23 13:01 Lymph # (Auto) 3.7 10^3/uL (0.8-4.8) 01/01/23 13:01 [place] # (Auto) 0.7 10^3/uL (0.2-0.9) 01/01/23 13:01 Eos # (Auto) 0.2 10^3/uL (0.0-0.8) 01/01/23 13:01 Baso # (Auto) 0.0 10^3/uL (0.0-0.1) 01/01/23 13:01 Nucleated RBC % (auto) 0 % 01/01/23 13:01 Nucleated RBCs # 0.0 /100WBC 01/01/23 13:01 Specimen Type Arterial 01/01/23 13:32 Sample Site Radial, left 01/01/23 13:32 ABG pH 7.36 (7.35-7.45) 01/01/23 13:32 ABG pCO2 55.8 mmHg (35-45) H 01/01/23 13:32 ABG pO2 47.5 mmHg (80.0-100.0) L 01/01/23 13:32 ABG PO2/FiO2 Ratio 0 01/01/23 13:32 ABG HCO3 31.8 mmol/L (22-26) H 01/01/23 13:32 ABG O2 Saturation 84.7 01/01/23 13:32 ABG Base Excess 4.9 mmol/L (-2.0-2.0) H 01/01/23 13:32 Cameron Test Pos 01/01/23 13:32 A-a O2 Gradient 4.6 mmHg (5-10) L 01/01/23 13:32 Hematocrit 40.7 % (37-47) 01/01/23 13:32 Hgb O2 Saturation 78.8 % (95-100) L 01/01/23 13:32 Carboxyhemoglobin 6.6 %THgb (0.4-20.1) 01/01/23 13:32 Methemoglobin 0.4 % (0.4-1.5) 01/01/23 13:32 Total Hemoglobin 13.3 g/dL (12-16) 01/01/23 13:32 Sodium 141.0 mmol/L (131-143) 01/01/23 13:32 Potassium 4.0 mmol/L (3.5-5.0) 01/01/23 13:32 Glucose 241.0 mg/dL (70-115) H 01/01/23 13:32 Ionized Calcium 1.2 mmol/L (1.1-1.4) 01/01/23 13:32 O2 Delivery Device Room air 01/01/23 13:32 FiO2 21.0 % 01/01/23 13:32 Rougher Operator ID Cak 01/01/23 13:32 Sodium 141 mmol/L (136-145) 01/01/23 13:01 Potassium 4.3 mmol/L (3.5-5.1) 01/01/23 13:01 Chloride 101 mmol/L (98-107) 01/01/23 13:01 Carbon Dioxide 30 mmol/L (22-29) H 01/01/23 13:01 Anion Gap 14.3 (5-19) 01/01/23 13:01 BUN 9 mg/dL (6-20) 01/01/23 13:01 Creatinine 0.5 mg/dL (0.5-0.9) 01/01/23 13:01 GFR Calculation 126.7 mL/min (90-130) 01/01/23 13:01 Glucose 239 mg/dL (65-115) H 01/01/23 13:01 Calculated Osmolality 298 mOsm/kg (285-295) H 01/01/23 13:01 Calcium 9.5 mg/dL (8.5-10.5) 01/01/23 13:01 Total Bilirubin 0.3 mg/dL (0.15-1.2) 01/01/23 13:01 AST 36 U/L (0-32) H 01/01/23 13:01 ALT 21 U/L (0-33) 01/01/23 13:01 Alkaline Phosphatase 78 U/L (35-105) 01/01/23 13:01 NT-Pro-B Natriuret Pep 1000 pg/mL (0-125) H 01/01/23 13:01 Total Protein 7.3 g/dL (6.6-8.7) 01/01/23 13:01 Albumin 3.8 g/dL (3.5-5.2) 01/01/23 13:01 Globulin 3.5 g/dL (1.3-4.6) 01/01/23 13:01 Procalcitonin 0.03 ng/mL (0-0.5) 01/01/23 13:01 Coronavirus 229E (PCR) Not detected (NOT DETECT) 01/01/23 14:03 Influenza Type A Ag negative (Negative) 01/01/23 14:03 Influenza Type B Ag negative (Negative) 01/01/23 14:03 SARS-CoV-2 (PCR) Detected (NOT DETECT) A 01/01/23 14:03 All radiology interpretation(s) finalized by discharge Discharge Plan Discharge Patient Disposition: Admitted As Inpatient Admit Provider: Jaspreet Morris Clinical Impression: COVID-19, Acute exacerbation of chronic obstructive airways disease, Chronic respiratory failure with hypoxia Condition: Stable Discharge Diet: Cardiac Discharge Activity: Resume usual activity and Oxygen as instructed Coding Level of Care Code ED Material Handling Technician for Abdirahman Hill
[2023-01-01 15:20] LABS: Basophils % 0.3 %; Eosinophils # 0.2 10^3/uL (0.0-0.8); Eosinophils % 1.9 %; Hematocrit 43.2 % (36-47); Lymphocytes # 3.7 10^3/uL (0.8-4.8); Lymphocytes % 40.6 %; Mean Corpuscular Hemoglobin 29.6 pg (27-33); Mean Corpuscular Volume 95.6 fl (85-98); Mean Platelet Volume 12.2 fL (7.4-10.4); Monocytes # 0.7 10^3/uL (0.2-0.9); Monocytes % 7.9 %; Nucleated Red Blood Cells % 0 %; Platelet Count 174 10^3/cmm (157-399); Red Blood Count 4.52 10^6/uL (3.85-5.65); Red Cell Distribution Width 13.8 % (12.1-15.1); White Blood Count 8.99 10^3/uL (3.29-11.43)
[2023-01-01 15:31] LABS: Alanine Aminotransferase 21 U/L (0-33); Albumin Level 3.8 g/dL (3.5-5.2); Alkaline Phosphatase 78 U/L (35-105); Aspartate Amino Transferase 36 U/L (0-32); Blood Urea Nitrogen 9 mg/dL (6-20); Calcium 9.5 mg/dL (8.5-10.5); Carbon Dioxide 30 mmol/L (22-29); Chloride 101 mmol/L (98-107); Globulin 3.5 g/dL (1.3-4.6); Glomerular Filtration Rate 126.7 mL/min (90-130); Glucose 239 mg/dL (65-115); Osmolality Calculated 298 mOsm/kg (285-295); Sodium 141 mmol/L (136-145); Total Bilirubin 0.3 mg/dL (0.15-1.2); Total Protein 7.3 g/dL (6.6-8.7)
[2023-01-01 15:32] LABS: Anion Gap 14.3 (5-19); Potassium 4.3 mmol/L (3.5-5.1)
--- NOTE | 2023-01-01 15:39 | PC.PHAR ---
pt states she takes care of her own medications-pt states the amitriptyline 50mg hs was dced ext shows last filled 11/21/22 30d/s-pt states she is now on quetiapine 100mg hs ext shows last filled 12/16/22 5d/s ext also shows 50mg hs filled 12/07/22 30d/s pt states only takes 100mg hs-pt states she ran out of her promethazine 25mg tid prn 2 days ago pt states she would like a refill ext shows last filled 12/06/22 10d/s-
[2023-01-01 15:50] LABS: Adenovirus Not Detected (NOT DETECT); Chlamydia Pneumoniae Not Detected (NOT DETECT); Coronavirus 229E,HKU1,NL63,OC4 Not Detected (NOT DETECT); Human Metapneumovirus Not Detected (NOT DETECT); Human Rhinovirus/Enterovirus Not Detected (NOT DETECT); Influenza A Not Detected (NOT DETECT); Influenza A H1 Not Detected (NOT DETECT); Influenza A H1-2009 Not Detected (NOT DETECT); Influenza A H3 Not Detected (NOT DETECT); Influenza B Not Detected (NOT DETECT); Mycoplasma Pneumoniae Not Detected (NOT DETECT); Parainfluenza Virus Type 1 Not Detected (NOT DETECT); Parainfluenza Virus Type 2 Not Detected (NOT DETECT); Parainfluenza Virus Type 3 Not Detected (NOT DETECT); Parainfluenza Virus Type 4 Not Detected (NOT DETECT); Respiratory Syncytial Virus A Not Detected (NOT DETECT); Respiratory Syncytial Virus B Not Detected (NOT DETECT)
[2023-01-01 15:51] LABS: SARS-COV-2 Detected (NOT DETECT)
--- NOTE | 2023-01-01 16:19 | PM.HP ---
Providers/Chief Complaint Primary Care Provider: Robbie Burrell MD Chief Complaint: RESP DISTRESS History of Present Illness Cyndi Baca is a 57 year old female who came from home with shortness of breath, patient symptoms started 3 days ago, she has noticed fever, diarrhea, wheezing, she has not noticed any chest pain, she was diagnosed with COVID-19, requiring 3 to 4 L of oxygen Patient is stating that at baseline she requires 3 to 4 L at home as well, She is finishing wheezing and shortness of breath on minimal conversation Review of Systems Const: Denies: fever(s) Eyes: Denies: change in vision ENMT: Denies: throat pain Card: Reports: swelling of feet/ankles Resp: Reports: dyspnea GI: Denies: abdominal pain : Denies: flank pain Musc: Reports: back pain Skin/Breast: Denies: rash Psych: Reports: anxiety Medications/Allergies Home Medications Medication Instructions Recorded Confirmed Last Taken Type aspirin 81 mg chewable tablet 81 mg PO QAM 09/19/19 01/01/23 01/01/23 07:00 History manual wheelchair #1 ea 10/03/19 01/01/23 Unknown Rx TENS unit and equipment #1 ea 10/01/22 01/01/23 Unknown Rx electric motorized wheelchair #1 ea 10/01/22 01/01/23 Unknown Rx fluticasone 250 mcg-salmeterol 50 1 inh inhalation BID #60 ea 10/01/22 01/01/23 01/01/23 Rx mcg/dose blistr powdr for inhalation (Advair Diskus) metformin 500 mg tablet 500 mg PO BID #60 tabs 10/13/22 01/01/23 01/01/23 07:00 Rx wheelchair #1 ea 10/14/22 01/01/23 Unknown Rx CPAP 6-16cm setting #1 ea 11/23/22 01/01/23 Unknown Rx CPAP mask, tubing, supplies #1 ea 11/23/22 01/01/23 Unknown Rx Left wrist brace #1 ea 12/06/22 01/01/23 Unknown Rx hydrocodone 7.5 mg-acetaminophen 1 tab PO BID PRN pain 30 days #60 12/06/22 01/01/23 01/01/23 Rx 325 mg tablet tabs promethazine 25 mg tablet 25 mg PO TID PRN nausea and 12/06/22 01/01/23 2 Days Ago Rx vomiting #30 tabs ~12/30/22 pt wants refills gabapentin 600 mg tablet 600 mg PO TID #180 tabs 12/07/22 01/01/23 01/01/23 07:00 Rx ipratropium 0.5 mg-albuterol 3 mg 3 ml inhalation Q6H PRN shortness 12/17/22 01/01/23 Unknown Rx (2.5 mg base)/3 mL nebulization of breath or wheezing #180 mL soln atorvastatin 40 mg tablet (Lipitor) 40 mg PO BEDTIME 01/01/23 01/01/23 12/31/22 History escitalopram oxalate 20 mg tablet 20 mg PO QAM 01/01/23 01/01/23 01/01/23 History (Lexapro) famotidine 20 mg tablet 20 mg PO BID 01/01/23 01/01/23 01/01/23 07:00 History meloxicam 15 mg tablet 15 mg PO QAM 01/01/23 01/01/23 01/01/23 History quetiapine 100 mg tablet 100 mg PO BEDTIME 01/01/23 01/01/23 12/31/22 History tizanidine 4 mg tablet 4 mg PO Q8H PRN Muscle Spasticity 01/01/23 01/01/23 Unknown History Allergies Allergy/AdvReac Type Severity Reaction Status Date / Time ketorolac [From Toradol] Allergy Severe ALGY-Anaphy Verified 01/01/23 15:33 laxis Penicillins Allergy Severe ALGY-Anaphy Verified 01/01/23 15:33 laxis Sulfa (Sulfonamide Allergy Severe ALGY-Anaphy Verified 01/01/23 15:33 Antibiotics) laxis tetracycline Allergy Severe ALGY-Anaphy Verified 01/01/23 15:33 laxis lidocaine Allergy ALGY-Hives Verified 01/01/23 15:33 tramadol [From Ultram] Allergy ALGY-Difficulty Verified 01/01/23 15:33 Breathing PFSH Acute PFSH: Medical History delivery delivered Chronic cystitis Community acquired pneumonia Constipation Hematochezia History of bipolar disorder History of hypertension History of stroke Insomnia Pulmonary nodules Rheumatoid arthritis Surgical History History of cholecystectomy History of hysterectomy History of incisional hernia repair History of knee surgery History of tonsillectomy Family History Mother , at age 78 COVID-19 Brother , at age 58 Cancer Colon Father , at age 45 Car occupant injured in traffic accident Cancer Colon Family/Other Cancer Paternal-lung Other Chronic kidney disease (CKD) Dementia Diabetes Hyperlipidemia Hypertension Lung disease Stroke Denies family history of CAD (coronary artery disease) Clotting disorder Psychiatric illness Anesthesia complication Bleeding disorder Social History Smoking and tobacco/nicotine status: current every day tobacco/nicotine user cigarettes Packs smoked per day: 1 Years cigarettes smoked: 30 [ Other cigarette details: Currently smoking 0.5 ppd and vaping.] Quit status (tobacco/nicotine): considering quitting Alcohol intake: never Substance/Drug Use: former Adopted: No Lives independently: Yes Household members: spouse Marital status: Number of grandchildren: 2 Current occupational status: disabled Special sherine needs: No Agree to transfusion: Yes Female Reproductive History: Spontaneous abortions: No Vitals/I&O/Wt Last Vital Signs Temp 97.7 F 01/01/23 13:18 Pulse 76 01/01/23 15:48 Resp 18 01/01/23 14:48 BP 143/86 01/01/23 15:48 Pulse Ox 95 01/01/23 15:48 O2 Del Method Nasal Cannula 01/01/23 15:48 O2 Flow Rate 3 01/01/23 15:48 Weight last 48 hrs Weight 158.757 kg Physical Exam Narrative: Morbidly obese Currently on 4 L GCS 15 Anxious. S1, S2 No active chest pain Pleasant and cooperative Nonfocal neuro exam Data 01/02/23 03:26 01/02/23 03:26 A&P Assessment and plan (1) Nausea: (2) COVID-19: (3) Chronic respiratory failure with hypoxia: (4) Muscle spasm: (5) Tobacco use disorder, severe, dependence: (6) Type 2 diabetes mellitus: (7) Neuropathic pain, leg, bilateral: (8) Tobacco abuse counseling: (9) GERD without esophagitis: (10) COPD (chronic obstructive pulmonary disease): (11) IVELISSE (obstructive sleep apnea): Plan COVID-19 pneumonia Acute on chronic hypoxia Currently on 4 L At baseline uses 3 L Check D-dimer Patient is requiring gabapentin and anxiolytics No active chest pain Admit to MedSurg Start remdesivir and Decadron Goals of care discussed patient is DNR/DNI Lives with her family Osteoarthritis with neuropathy Type II diabetic Attestations Medical Necessity Statement*: anticipating more than 2 midnight Coding Level of Care Code Acute Code for Chg Fwd Diagnoses Nausea R11.0 COVID-19 U07.1 Chronic respiratory failure with hypoxia J96.11 Muscle spasm M62.838 Tobacco use disorder, severe, dependence F17.200 Type 2 diabetes mellitus E11.9 Neuropathic pain, leg, bilateral G57.93 Tobacco abuse counseling Z71.6 GERD without esophagitis K21.9 COPD (chronic obstructive pulmonary disease) J44.9 IVELISSE (obstructive sleep apnea) G47.33
[2023-01-01 16:35] LABS: NT Pro B Type Natriuretic Pept 1000 pg/mL (0-125); Procalcitonin 0.03 ng/mL (0-0.5)
[2023-01-01 18:54] LABS: D Dimer 0.66 ug/mLFEU (0-0.59)
[2023-01-01] MEDS: ascorbic acid 500 mg Tablet 1000 MG PO (19:19)
[2023-01-01] MEDS: heparin 5,000 unit/mL INJ 1 mL 5000 UNIT SUBCUT (19:19)
[2023-01-01] MEDS: dexamethasone 4 mg/mL INJ 6 MG IVP (19:25)
[2023-01-01] MEDS: remdesivir 200 MG in sodium chloride 0.9% (100 ml) 100 ML 100 MG IV (19:25)
[2023-01-01] MEDS: sodium chloride 0.9% 1,000 ML 100 ML IV (19:26)
[2023-01-01] MEDS: benzonatate 100 mg Capsule 200 MG PO (21:02)
[2023-01-01] MEDS: HYDROcodone-acetaminophen 7.5-325 mg Tablet 1 TAB PO (21:03)
[2023-01-01] MEDS: budesonide 0.5 mg/2 mL Neb INHALATION (21:07)
[2023-01-01 23:34] LABS: Urine Appearance Clear (CLEAR); Urine Color Colorless (Yellow); pH Urine 8 (5-7)
[2023-01-01 23:35] LABS: Add Urine Culture? No; Add Urine Microscopic? YES; Bilirubin Urine Neg (Negative); Blood Urine Neg (Negative); Glucose Urine UA 4+ (Normal); Ketones Urine 1+ (Negative); Leukocyte Esterase Urine Negative (Negative); Nitrate Urine Negative (Negative); Protein Urine Trace (Negative); RBC Urine RARE /hpf (0-2); Squamous Epithelial Cell Urine 0-4 /hpf (0-5); Urobilinogen Urine Neg (Negative)
[2023-01-02] VITALS (14 sets, daily range): BP systolic 131–183; BP diastolic 60–108; PULSE 76–108; RESP 18–22; TEMP 36.6–36.9; O2SAT 93–98
[2023-01-02 04:13] LABS: Basophils % 0.3 %; Hematocrit 42.5 % (36-47); Lymphocytes # 1.5 10^3/uL (0.8-4.8); Lymphocytes % 16.5 %; Mean Corpuscular HGB Conc 30.1 g/dL (30-55); Mean Corpuscular Hemoglobin 28.8 pg (27-33); Mean Corpuscular Volume 95.7 fl (85-98); Mean Platelet Volume 11.7 fL (7.4-10.4); Monocytes # 0.2 10^3/uL (0.2-0.9); Monocytes % 2.5 %; Neutrophils # 6.96 10^3/uL (1.8-7.7); Neutrophils % 79.2 %; Nucleated Red Blood Cells % 0 %; Platelet Count 170 10^3/cmm (157-399); Red Blood Count 4.44 10^6/uL (3.85-5.65); Red Cell Distribution Width 13.4 % (12.1-15.1); White Blood Count 8.79 10^3/uL (3.29-11.43)
[2023-01-02 04:30] LABS: Creatine Phosphokinase 78 U/L (26-192)
[2023-01-02] MEDS: HYDROcodone-acetaminophen 7.5-325 mg Tablet 1 TAB PO ×3 (04:34→23:00)
[2023-01-02] MEDS: benzonatate 100 mg Capsule 200 MG PO ×3 (04:35→20:51)
[2023-01-02] MEDS: heparin 5,000 unit/mL INJ 1 mL 5000 UNIT SUBCUT ×2 (04:36→16:53)
[2023-01-02 04:37] LABS: Alanine Aminotransferase 19 U/L (0-33); Albumin Level 3.7 g/dL (3.5-5.2); Alkaline Phosphatase 74 U/L (35-105); Anion Gap 18.6 (5-19); Aspartate Amino Transferase 28 U/L (0-32); Blood Urea Nitrogen 10 mg/dL (6-20); Carbon Dioxide 23 mmol/L (22-29); Chloride 99 mmol/L (98-107); Globulin 3.1 g/dL (1.3-4.6); Glomerular Filtration Rate 126.7 mL/min (90-130); Glucose 408 mg/dL (65-115); Magnesium 1.7 mg/dL (1.7-2.3); Osmolality Calculated 298 mOsm/kg (285-295); Potassium 4.6 mmol/L (3.5-5.1); Sodium 136 mmol/L (136-145); Total Bilirubin 0.2 mg/dL (0.15-1.2); Total Protein 6.8 g/dL (6.6-8.7)
[2023-01-02] MEDS: sodium chloride 0.9% 1,000 ML 100 ML IV (04:38)
[2023-01-02] MEDS: ipratropium-albuterol 3 mL Neb INHALATION ×4 (07:53→21:43)
[2023-01-02] MEDS: budesonide 0.5 mg/2 mL Neb INHALATION ×2 (07:53→21:43)
[2023-01-02] MEDS: pantoprazole DR 40 mg Tablet PO (08:30)
[2023-01-02] MEDS: ascorbic acid 500 mg Tablet 1000 MG PO ×2 (08:31→18:05)
--- NOTE | 2023-01-02 10:22 | P.PN_ITS ---
Subjective Subjective: We will request CT chest Wheezing has not improved significantly We will resume gabapentin and Seroquel Patient did really endorse her DNR/DNI status again Vitals/I&O/Wt Last Vital Signs Temp 98.5 F 01/02/23 07:31 Pulse 76 01/02/23 07:54 Resp 18 01/02/23 07:54 BP 148/60 01/02/23 07:31 Pulse Ox 95 01/02/23 07:54 O2 Del Method Nasal Cannula 01/02/23 07:54 O2 Flow Rate 4 01/02/23 07:54 01/01/23 01/02/23 01/02/23 22:59 06:59 14:59 Intake Total 340 / 340 1400 / 1740 360 / 360 Output Total 1000 / 1000 1550 / 2550 600 / 600 Balance -660 / -660 -150 / -810 -240 / -240 Weight last 48 hrs Weight 158.757 kg Weight 158.757 kg Physical Exam Narrative: Active wheezing Currently on 4 L Nonproductive cough Distended abdomen Morbid obesity Anxious. GCS 15 Nonfocal neuro exam Sinus rhythm Data 01/02/23 03:26 01/02/23 03:26 A&P Assessment and plan (1) Chronic respiratory failure with hypoxia: (2) COVID-19: (3) Tobacco use disorder, severe, dependence: (4) Dyslipidemia: (5) Type 2 diabetes mellitus: (6) Neuropathic pain, leg, bilateral: (7) Osteoarthritis: (8) Tobacco abuse counseling: (9) Moderate major depression: (10) Pulmonary nodule: (11) COPD (chronic obstructive pulmonary disease): Plan COVID-19 related hypoxia Currently requiring 4 L Requested CTA chest to rule out PE Continue gabapentin and Seroquel for her neuropathic pain related to diabetes Continue remdesivir and Decadron Added insulin sliding scale Change diet to consistent carb DNR/DNI Attestations Medical Necessity Statement*: Continue medical management Coding Level of Care Code 84050 Moderate MDM includes number and complexity of problems actively addressed during encounter, amount and/or complexity of data reviewed/ordered and described risk of complication, morbidity or mortality of management as doc umented Diagnoses Chronic respiratory failure with hypoxia J96.11 COVID-19 U07.1 Tobacco use disorder, severe, dependence F17.200 Dyslipidemia E78.5 Type 2 diabetes mellitus E11.9 Neuropathic pain, leg, bilateral G57.93 Osteoarthritis M19.90 Tobacco abuse counseling Z71.6 Moderate major depression F32.1 Pulmonary nodule R91.1 COPD (chronic obstructive pulmonary disease) J44.9
--- NOTE | 2023-01-02 10:25 | CTR_ITS ---
PROCEDURE INFORMATION: Exam: CTA Chest With Contrast Exam date and time: 01/02/2023 1:50 PM Age: 57 years old Clinical indication: Hyperventilation; Additional info: Hypoxia TECHNIQUE: Imaging protocol: Computed tomographic angiography of the chest with contrast. Exam focused on the arteries. 3D rendering (Not supervised by radiologist): MIP and/or 3D reconstructed images were created by the technologist. Radiation optimization: All CT scans at this facility use at least one of these dose optimization techniques: automated exposure control; mA and/or kV adjustment per patient size (includes targeted exams where dose is matched to clinical indication); or iterative reconstruction. Contrast material: OMNI 350; Contrast volume: 100 ml; Contrast route: INTRAVENOUS (IV); REPORTING DATA: Count of CT and Cardiac NM exams in prior 12 months: This patient has received 5 known CTs and 0 known cardiac nuclear medicine studies in the 12 months prior to the current study. COMPARISON: CT lung screening [id number] 11/17/2022 8:55 AM RADIATION DOSE METRICS: Total DLP (mGy-cm): 556.75 FINDINGS: Pulmonary arteries: Suboptimal contrast opacification of the pulmonary arteries, no central or proximal segmental filling defect. 4 cm diameter main pulmonary artery. Aorta: No aortic aneurysm or dissection. Lungs: Unchanged 8 mm right lower lobe nodule on series 7 image 306. Background ground-glass opacities throughout the lungs. Pleural spaces: No pneumothorax. No pleural effusion. Heart: Coronary calcifications. No pericardial effusion. Lymph nodes: No enlarged lymph nodes. Bones/joints: No acute findings. Soft tissues: Unchanged right adrenal adenoma. CT/CT angio chest PE protcl [id number] IMPRESSION: No evidence of central pulmonary embolism. Diffuse ground-glass opacities which may reflect any combination of perfusional variation, edema or infectious/inflammatory process depending on clinical correlation. No dense focal consolidation. Unchanged 8 mm right lower lobe pulmonary nodule. 4 cm diameter of the main pulmonary trunk suggestive of pulmonary hypertension.
[2023-01-02 11:43] LABS: Glucose Point of Care 380 mg/dL (70-110)
[2023-01-02] MEDS: insulin lispro 100 unit/1 mL SUBCUT ×2 (12:03→18:05)
--- NOTE | 2023-01-02 14:09 | ECG_ITS ---
[facility] Test Date: 2023-01-02 Pat Name: Cyndi Baca Department: Room: 261 Gender: Female Forestry Biology Specialist: : 1965 Requested By: Jaspreet Morris Order Number: [id number] Ramial MD: Мария Encinas M.D. Measurements Intervals [place] Rate: 84 P: 41 [place]: 171 QRS: -13 QRSD: 94 T: 18 QT: 354 QTc: 421 Interpretive Statements SINUS RHYTHM WITH FREQUENT VENTRICULAR PREMATURE COMPLEXES ABNORMAL RHYTHM ECG Compared to ECG 01/01/2023 13:42:16 Myocardial infarct finding no longer present Electronically Signed On 01-02-2023 22:08:16 MOTOR INSTALLER by Мария Encinas M.D. [email or web address]
[2023-01-02] MEDS: gabapentin 300 mg Capsule 600 MG PO ×2 (16:53→20:51)
[2023-01-02] MEDS: dexamethasone 4 mg/mL INJ 6 MG IVP (16:54)
[2023-01-02 17:49] LABS: Glucose Point of Care 222 mg/dL (70-110)
[2023-01-02] MEDS: remdesivir 100 MG in sodium chloride 0.9% (100 ml) 100 ML IV (18:05)
[2023-01-02] MEDS: quetiapine 100 mg Tablet PO (20:51)
[2023-01-02 21:19] LABS: Glucose Point of Care 322 mg/dL (70-110)
[2023-01-03] VITALS (16 sets, daily range): BP systolic 113–174; BP diastolic 62–91; PULSE 67–89; RESP 15–22; TEMP 36.4–36.9; O2SAT 92–97
[2023-01-03] MEDS: ipratropium-albuterol 3 mL Neb INHALATION ×5 (02:59→20:58)
[2023-01-03] MEDS: heparin 5,000 unit/mL INJ 1 mL 5000 UNIT SUBCUT ×2 (04:08→15:07)
[2023-01-03] MEDS: benzonatate 100 mg Capsule 200 MG PO ×3 (04:08→20:27)
[2023-01-03] MEDS: aspirin 81 mg Chew Tablet PO (06:07)
[2023-01-03] MEDS: escitalopram 10 mg Tablet 20 MG PO (06:07)
[2023-01-03 06:49] LABS: Glucose Point of Care 276 mg/dL (70-110)
[2023-01-03] MEDS: insulin lispro 100 unit/1 mL SUBCUT ×3 (07:28→17:09)
[2023-01-03 08:12] LABS: Basophils % 0.1 %; Hematocrit 42.1 % (36-47); Lymphocytes # 2.7 10^3/uL (0.8-4.8); Lymphocytes % 19.4 %; Mean Corpuscular HGB Conc 30.6 g/dL (30-55); Mean Corpuscular Hemoglobin 29.2 pg (27-33); Mean Corpuscular Volume 95.2 fl (85-98); Mean Platelet Volume 11.4 fL (7.4-10.4); Monocytes # 0.8 10^3/uL (0.2-0.9); Monocytes % 5.7 %; Neutrophils # 10.15 10^3/uL (1.8-7.7); Neutrophils % 74.1 %; Nucleated Red Blood Cells % 0 %; Platelet Count 172 10^3/cmm (157-399); Red Blood Count 4.42 10^6/uL (3.85-5.65); Red Cell Distribution Width 13.5 % (12.1-15.1); White Blood Count 13.69 10^3/uL (3.29-11.43)
[2023-01-03] MEDS: ascorbic acid 500 mg Tablet 1000 MG PO ×2 (08:14→16:55)
[2023-01-03] MEDS: gabapentin 300 mg Capsule 600 MG PO ×3 (08:14→20:27)
[2023-01-03] MEDS: pantoprazole DR 40 mg Tablet PO (08:14)
[2023-01-03 08:32] LABS: Anion Gap 15.5 (5-19); Blood Urea Nitrogen 12 mg/dL (6-20); Calcium 9.3 mg/dL (8.5-10.5); Carbon Dioxide 27 mmol/L (22-29); Chloride 100 mmol/L (98-107); Glomerular Filtration Rate 126.7 mL/min (90-130); Glucose 277 mg/dL (65-115); Osmolality Calculated 296 mOsm/kg (285-295); Potassium 4.5 mmol/L (3.5-5.1); Sodium 138 mmol/L (136-145)
[2023-01-03] MEDS: HYDROcodone-acetaminophen 7.5-325 mg Tablet 1 TAB PO ×2 (10:29→22:14)
[2023-01-03 11:36] LABS: Glucose Point of Care 226 mg/dL (70-110)
--- NOTE | 2023-01-03 15:39 | P.PN_ITS ---
Subjective Subjective: Seen this morning. Patient lying in bed on baseline oxygen. She states she feels bad and has low back pain which she also says is chronic. She says she has been coughing so much that her ribs are hurting at this point. She has chest pain every time she takes a deep breath on her left side. She is requesting her pain medication to be reinstated as per her home regimen and says she takes hydrocodone 7.5 every 4 hours. Vitals/I&O/Wt Last Vital Signs Temp 97.6 F 01/03/23 11:35 Pulse 79 01/03/23 13:56 Resp 20 H 01/03/23 11:39 BP 136/82 01/03/23 11:35 Pulse Ox 96 01/03/23 11:39 O2 Del Method Nasal Cannula 01/03/23 11:39 O2 Flow Rate 3 01/03/23 11:39 01/03/23 01/03/23 01/03/23 06:59 14:59 22:59 Intake Total 720 / 3260 600 / 600 Output Total 2300 / 4950 500 / 500 Balance -1580 / -1690 100 / 100 Weight last 48 hrs Weight 158.757 kg Physical Exam Narrative: Bilateral rhonchi present, on 3 L nasal cannula Nonproductive cough Distended abdomen Morbid obesity Anxious. GCS 15 Nonfocal neuro exam Sinus rhythm Data 01/03/23 07:39 01/03/23 07:39 Micro: Microbiology 01/01/23 23:00 Bacterial Antigens - Final Urine,Clean Catch A&P Assessment and plan (1) Chronic respiratory failure with hypoxia: (2) COVID-19: (3) Tobacco use disorder, severe, dependence: (4) Dyslipidemia: (5) Type 2 diabetes mellitus: (6) Neuropathic pain, leg, bilateral: (7) Osteoarthritis: (8) Tobacco abuse counseling: (9) Moderate major depression: (10) Pulmonary nodule: (11) COPD (chronic obstructive pulmonary disease): Plan COVID-19 related hypoxia Currently requiring 3 L which is her baseline oxygen requirement. CTA chest ruled out PE Continue gabapentin and Seroquel for her neuropathic pain related to diabetes DuoNeb every 6 hours as needed Tessalon Perles for cough Chronic back pain Hydrocodone 7.5 every 8 hours as needed. Continue remdesivir and Decadron Added insulin sliding scale Change diet to consistent carb DNR/DNI Plan to discharge patient home tomorrow. Discussed this with her and she is on board with the plan. Attestations Medical Necessity Statement*: DC in a.m. Patient will require IV steroids in the hospital today. Diagnoses Chronic respiratory failure with hypoxia J96.11 COVID-19 U07.1 Tobacco use disorder, severe, dependence F17.200 Dyslipidemia E78.5 Type 2 diabetes mellitus E11.9 Neuropathic pain, leg, bilateral G57.93 Osteoarthritis M19.90 Tobacco abuse counseling Z71.6 Moderate major depression F32.1 Pulmonary nodule R91.1 COPD (chronic obstructive pulmonary disease) J44.9
[2023-01-03] MEDS: remdesivir 100 MG in sodium chloride 0.9% (100 ml) 100 ML IV (16:55)
[2023-01-03] MEDS: dexamethasone 4 mg/mL INJ 6 MG IVP (16:55)
[2023-01-03 17:37] LABS: Glucose Point of Care 258 mg/dL (70-110)
[2023-01-03] MEDS: quetiapine 100 mg Tablet PO (20:27)
[2023-01-03] MEDS: budesonide 0.5 mg/2 mL Neb INHALATION (20:58)
[2023-01-03 21:26] LABS: Glucose Point of Care 347 mg/dL (70-110)
[2023-01-04] MEDS: benzonatate 100 mg Capsule 200 MG PO (03:54)
[2023-01-04] MEDS: heparin 5,000 unit/mL INJ 1 mL 5000 UNIT SUBCUT (03:54)
[2023-01-04 04:00] VITALS: BP 142/77; PULSE 61; RESP 18; TEMP 36.6; O2SAT 93
[2023-01-04] MEDS: ondansetron 2 mg/ML SDV 2 mL 4 MG IVP (04:03)
[2023-01-04] MEDS: acetaminophen 325 mg Tablet 650 MG PO (04:03)
[2023-01-04 06:00] VITALS: PULSE 70
[2023-01-04] MEDS: escitalopram 10 mg Tablet 20 MG PO (06:23)
[2023-01-04] MEDS: aspirin 81 mg Chew Tablet PO (06:23)
[2023-01-04] MEDS: HYDROcodone-acetaminophen 7.5-325 mg Tablet 1 TAB PO (06:28)
[2023-01-04 06:37] LABS: Basophils % 0.1 %; Lymphocytes # 2.1 10^3/uL (0.8-4.8); Lymphocytes % 15.8 %; Mean Corpuscular HGB Conc 31.4 g/dL (30-55); Mean Corpuscular Hemoglobin 29.5 pg (27-33); Mean Corpuscular Volume 93.9 fl (85-98); Mean Platelet Volume 10.8 fL (7.4-10.4); Monocytes # 0.9 10^3/uL (0.2-0.9); Monocytes % 6.3 %; Neutrophils # 10.33 10^3/uL (1.8-7.7); Neutrophils % 76.8 %; Nucleated Red Blood Cells % 0 %; Platelet Count 192 10^3/cmm (157-399); Red Blood Count 4.58 10^6/uL (3.85-5.65); Red Cell Distribution Width 13.6 % (12.1-15.1); White Blood Count 13.45 10^3/uL (3.29-11.43)
[2023-01-04 06:57] LABS: Anion Gap 14.3 (5-19); Blood Urea Nitrogen 19 mg/dL (6-20); Calcium 8.8 mg/dL (8.5-10.5); Carbon Dioxide 28 mmol/L (22-29); Chloride 97 mmol/L (98-107); Glomerular Filtration Rate 126.7 mL/min (90-130); Glucose 354 mg/dL (65-115); Magnesium 1.9 mg/dL (1.7-2.3); Osmolality Calculated 296 mOsm/kg (285-295); Potassium 4.3 mmol/L (3.5-5.1); Sodium 135 mmol/L (136-145)
[2023-01-04 07:03] LABS: Glucose Point of Care 318 mg/dL (70-110)
[2023-01-04] MEDS: insulin lispro 100 unit/1 mL SUBCUT (07:26)
[2023-01-04] MEDS: pantoprazole DR 40 mg Tablet PO (07:27)
[2023-01-04] MEDS: ascorbic acid 500 mg Tablet 1000 MG PO (07:27)
[2023-01-04] MEDS: gabapentin 300 mg Capsule 600 MG PO (07:27)
[2023-01-04 07:52] VITALS: BP 161/96; PULSE 94; RESP 17; TEMP 36.4; O2SAT 92
[2023-01-04] MEDS: budesonide 0.5 mg/2 mL Neb INHALATION (08:10)
[2023-01-04] MEDS: ipratropium-albuterol 3 mL Neb INHALATION (08:10)
[2023-01-04 08:11] VITALS: PULSE 83; RESP 18; O2SAT 98
[2023-01-04 08:19] VITALS: PULSE 81; RESP 18; O2SAT 98
--- NOTE | 2023-01-04 09:04 | P.DS_ITS ---
Discharge Providers Date of Admission: 01/01/23 16:09 Date of Discharge: January 04, 2023 Attending Provider at Admission: Jaspreet Morris MD Attending Provider at Discharge: Susanne Zhang MD Primary Care Provider: Robbie Burrell MD Diagnoses at Discharge Discharge Diagnosis (1) Chronic respiratory failure with hypoxia: Status: Acute (2) COVID-19: Status: Acute (3) Tobacco use disorder, severe, dependence: Status: Acute (4) Dyslipidemia: Status: Acute (5) Type 2 diabetes mellitus: Status: Acute (6) Neuropathic pain, leg, bilateral: Status: Acute (7) Osteoarthritis: Status: Acute (8) Tobacco abuse counseling: Status: Acute (9) Moderate major depression: Status: Acute (10) Pulmonary nodule: Status: Acute (11) COPD (chronic obstructive pulmonary disease): Status: Acute Reason for Visit Reason for Visit: RESP DISTRESS Hospital Course Hospital Course 57-year-old admitted for shortness of breath secondary to COVID-19. She is at her baseline oxygen 3 to 4 L. Patient placed on remdesivir and Decadron. She was discharged home in stable condition once she started feeling better. She remained on baseline oxygen throughout hospital stay. CTA to rule out PE. Sent home on levofloxacin, Tessalon Perles. Physical Exam Narrative: Bilateral rhonchi present, on 3 L nasal cannula Nonproductive cough Abdomen soft Morbid obesity Nonfocal neuro exam Sinus rhythm Discharge Data Studies Completed and Pending Completed Studies During Hospitalization Category Date Time Status CTA PE [CT angio chest PE protcl [id number]] Routine Cat Scan 01/02/23 10:25 Completed XR chest 1V portable [id number] Stat Exams 01/01/23 13:15 Completed Pending at discharge Category Date Time Status Sputum Culture Routine Lab 01/03/23 17:15 Received Radiology Impressions Chest X-Ray 01/01/23 13:15 IMPRESSION: No acute findings. Chest CTA 01/02/23 10:25 IMPRESSION: No evidence of central pulmonary embolism. Diffuse ground-glass opacities which may reflect any combination of perfusional variation, edema or infectious/inflammatory process depending on clinical correlation. No dense focal consolidation. Unchanged 8 mm right lower lobe pulmonary nodule. 4 cm diameter of the main pulmonary trunk suggestive of pulmonary hypertension. Laboratory Results WBC 13.45 10^3/uL (3.29-11.43) H 01/04/23 06:21 RBC 4.58 10^6/uL (3.85-5.65) 01/04/23 06:21 Hgb 13.50 g/dL (11.27-16.99) 01/04/23 06:21 Hct 43.0 % (36-47) 01/04/23 06:21 MCV 93.9 fl (85-98) 01/04/23 06:21 MCH 29.5 pg (27-33) 01/04/23 06: MCHC 31.4 g/dL (30-55) 01/04/23 06:21 RDW 13.6 % (12.1-15.1) 01/04/23 06:21 Plt Count 192 10^3/cmm (157-399) 01/04/23 06:21 MPV 10.8 fL (7.4-10.4) H 01/04/23 06:21 Neut % (Auto) 76.8 % 01/04/23 06:21 Lymph % (Auto) 15.8 % 01/04/23 06:21 [place] % (Auto) 6.3 % 01/04/23 06:21 Eos % (Auto) 0.0 % 01/04/23 06:21 Baso % (Auto) 0.1 % 01/04/23 06: Neut # (Auto) 10.33 10^3/uL (1.8-7.7) H 01/04/23 06:21 Lymph # (Auto) 2.1 10^3/uL (0.8-4.8) 01/04/23 06:21 [place] # (Auto) 0.9 10^3/uL (0.2-0.9) 01/04/23 06:21 Eos # (Auto) 0.0 10^3/uL (0.0-0.8) 01/04/23 06:21 Baso # (Auto) 0.0 10^3/uL (0.0-0.1) 01/04/23 06:21 Nucleated RBC % (auto) 0 % 01/04/23 06:21 Nucleated RBCs # 0.0 /100WBC 01/04/23 06:21 D-Dimer 0.66 ug/mLFEU (0-0.59) H 01/01/23 18:28 Specimen Type Arterial 01/01/23 13:32 Sample Site Radial, left 01/01/23 13:32 ABG pH 7.36 (7.35-7.45) 01/01/23 13:32 ABG pCO2 55.8 mmHg (35-45) H 01/01/23 13:32 ABG pO2 47.5 mmHg (80.0-100.0) L 01/01/23 13:32 ABG PO2/FiO2 Ratio 0 01/01/23 13:32 ABG HCO3 31.8 mmol/L (22-26) H 01/01/23 13:32 ABG O2 Saturation 84.7 01/01/23 13:32 ABG Base Excess 4.9 mmol/L (-2.0-2.0) H 01/01/23 13:32 [place] Test Pos 01/01/23 13:32 A-a O2 Gradient 4.6 mmHg (5-10) L 01/01/23 13:32 Hematocrit 40.7 % (37-47) 01/01/23 13:32 Hgb O2 Saturation 78.8 % (95-100) L 01/01/23 13:32 Carboxyhemoglobin 6.6 %THgb (0.4-20.1) 01/01/23 13:32 Methemoglobin 0.4 % (0.4-1.5) 01/01/23 13:32 Total Hemoglobin 13.3 g/dL (12-16) 01/01/23 13:32 Sodium 141.0 mmol/L (131-143) 01/01/23 13:32 Potassium 4.0 mmol/L (3.5-5.0) 01/01/23 13:32 Glucose 241.0 mg/dL (70-115) H 01/01/23 13:32 Ionized Calcium 1.2 mmol/L (1.1-1.4) 01/01/23 13:32 O2 Delivery Device Room air 01/01/23 13:32 FiO2 21.0 % 01/01/23 13:32 Travel Registered Nurse Oncology ID Cak 01/01/23 13:32 Sodium 135 mmol/L (136-145) L 01/04/23 06:21 Potassium 4.3 mmol/L (3.5-5.1) 01/04/23 06:21 Chloride 97 mmol/L (98-107) L 01/04/23 06:21 Carbon Dioxide 28 mmol/L (22-29) 01/04/23 06:21 Anion Gap 14.3 (5-19) 01/04/23 06:21 BUN 19 mg/dL (6-20) 01/04/23 06:21 Creatinine 0.5 mg/dL (0.5-0.9) 01/04/23 06:21 GFR Calculation 126.7 mL/min (90-130) 01/04/23 06:21 Glucose 354 mg/dL (65-115) H 01/04/23 06:21 POC Glucose 318 mg/dL (70-110) H 01/04/23 06:40 Calculated Osmolality 296 mOsm/kg (285-295) H 01/04/23 06:21 Calcium 8.8 mg/dL (8.5-10.5) 01/04/23 06:21 Magnesium 1.9 mg/dL (1.7-2.3) 01/04/23 06:21 Total Bilirubin 0.2 mg/dL (0.15-1.2) 01/02/23 03:26 AST 28 U/L (0-32) 01/02/23 03:26 ALT 19 U/L (0-33) 01/02/23 03:26 Alkaline Phosphatase 74 U/L (35-105) 01/02/23 03:26 Creatine Kinase 78 U/L (26-192) 01/02/23 03:26 NT-Pro-B Natriuret Pep 1000 pg/mL (0-125) H 01/01/23 13:01 Total Protein 6.8 g/dL (6.6-8.7) 01/02/23 03:26 Albumin 3.7 g/dL (3.5-5.2) 01/02/23 03:26 Globulin 3.1 g/dL (1.3-4.6) 01/02/23 03:26 Procalcitonin 0.03 ng/mL (0-0.5) 01/01/23 13:01 Urine Color Colorless (Yellow) 01/01/23 23:00 Urine Appearance Clear (CLEAR) 01/01/23 23:00 Urine pH 8 (5-7) H 01/01/23 23:00 Ur Specific [place] 1.010 (1.005-1.030) 01/01/23 23:00 Urine Protein Trace (Negative) 01/01/23 23:00 Urine Glucose (UA) 4+ (Normal) H 01/01/23 23:00 Urine Ketones 1+ (Negative) H 01/01/23 23:00 Urine Blood Neg (Negative) 01/01/23 23:00 Urine Nitrate Negative (Negative) 01/01/23 23:00 Urine Bilirubin Neg (Negative) 01/01/23 23:00 Urine Urobilinogen Neg mg/dL (Negative) 01/01/23 23:00 Ur Leukocyte Esterase Negative (Negative) 01/01/23 23:00 Urine RBC Rare /hpf (0-2) 01/01/23 23:00 Urine WBC None /hpf (0-5) 01/01/23 23:00 Ur Squamous Epith Cells 0-4 /hpf (0-5) H 01/01/23 23:00 Amorphous Sediment Not Reportable 01/01/23 23:00 Urine Bacteria None /hpf (NONE) 01/01/23 23:00 Coronavirus 229E (PCR) Not detected (NOT DETECT) 01/01/23 14:03 Influenza Type A Ag negative (Negative) 01/01/23 14:03 Influenza Type B Ag negative (Negative) 01/01/23 14:03 SARS-CoV-2 (PCR) Detected (NOT DETECT) A 01/01/23 14:03 Vitals Last Vital Signs Temp 97.6 F 01/04/23 07:52 Pulse 81 01/04/23 08:19 Resp 18 01/04/23 08:19 BP 161/96 01/04/23 07:52 Pulse Ox 98 01/04/23 08:19 O2 Del Method Nasal Cannula 01/04/23 08:19 O2 Flow Rate 3 01/04/23 08:19 Discharge Plan Discharge Patient Disposition: Home Condition: Stable Prescriptions: New benzonatate 100 mg Capsule 200 mg PO Q8H 5 Days Qty: 14 0RF levofloxacin 750 mg tablet 750 mg PO DAILY 5 Days Qty: 5 0RF (DME) Blood Glucose Monitoring Kit See Rx Instructions .Route Qty: 1 0RF Rx Instructions: As directed (DME) lancets Misc See Rx Instructions .Route Qty: 100 0RF Rx Instructions: As directed (DME) Blood Glucose Test Strip See Rx Instructions .Route Qty: 50 0RF Rx Instructions: As directed Continued (DME) manual wheelchair See Rx Instructions .Route .MEDSUPPLY Qty: 1 0RF Rx Instructions: As directed (DME) TENS unit and equipment See Rx Instructions .Route .MEDSUPPLY Qty: 1 0RF Rx Instructions: As directed (DME) electric motorized wheelchair See Rx Instructions .Route .MEDSUPPLY Qty: 1 0RF Rx Instructions: As directed promethazine 25 mg tablet 25 mg PO TID PRN (Reason: nausea and vomiting) Qty: 30 1RF hydrocodone-acetaminophen 7.5-325 mg tablet 1 tab PO BID PRN (Reason: pain) 30 Days Qty: 60 0RF (DME) Left wrist brace See Rx Instructions .Route .MEDSUPPLY Qty: 1 0RF Rx Instructions: As directed (DME) wheelchair See Rx Instructions .Route .MEDSUPPLY Qty: 1 0RF Rx Instructions: As directed (DME) CPAP 6-16cm setting See Rx Instructions .ROUTE .MEDSUPPLY Qty: 1 0RF Rx Instructions: As directed (DME) CPAP mask, tubing, supplies See Rx Instructions .ROUTE .MEDSUPPLY Qty: 1 1RF Rx Instructions: As directed gabapentin 600 mg tablet 600 mg PO TID Qty: 180 1RF ipratropium-albuterol 0.5 mg-3 mg(2.5 mg base)/3 mL solution for nebulization 3 ml inhalation Q6H PRN (Reason: shortness of breath or wheezing) Qty: 180 5RF aspirin 81 mg Tablet,Chewable 81 mg PO QAM fluticasone propion-salmeterol [Advair Diskus] 250-50 mcg/dose blister with device 1 inh inhalation BID Qty: 60 3RF Lipitor 40 mg tablet 40 mg PO BEDTIME tizanidine 4 mg tablet 4 mg PO Q8H PRN (Reason: Muscle Spasticity) meloxicam 15 mg tablet 15 mg PO QAM quetiapine 100 mg tablet 100 mg PO BEDTIME famotidine 20 mg tablet 20 mg PO BID Lexapro 20 mg tablet 20 mg PO QAM Changed metformin 500 mg tablet 1,000 mg PO BID Qty: 60 3RF Discharge Orders: Discharge Order (Routine); Ordered 01/04/23 Ordered By: Susanne Zhang Referrals: Robbie Burrell MD [Primary Care Provider] - 01/10/23 2:00 pm Discharge Diet: Cardiac Discharge Activity: Resume usual activity and Oxygen as instructed Patient Instructions: COPD, Benzonatate (By mouth), Prednisone (By mouth), Levofloxacin (By mouth), COVID-19 (Coronavirus Disease 2019) (GEN), COPD Stoplight, Opioid Safety Discharge Attestations Time Spent in Discharge Care*: greater than 30 min Quality Metrics Clinical Quality Measures [ No reported AMI, CVA or VTE this stay] Coding Level of Care Code Acute Code for Chg Fwd Diagnoses Chronic respiratory failure with hypoxia J96.11 COVID-19 U07.1 Tobacco use disorder, severe, dependence F17.200 Dyslipidemia E78.5 Type 2 diabetes mellitus E11.9 Neuropathic pain, leg, bilateral G57.93 Osteoarthritis M19.90 Tobacco abuse counseling Z71.6 Moderate major depression F32.1 Pulmonary nodule R91.1 COPD (chronic obstructive pulmonary disease) J44.9
[2023-01-04 10:34] VITALS: BP 161/96; PULSE 81; RESP 18; TEMP 36.4; O2SAT 98
--- NOTE | 2023-01-04 10:36 | PC.NURSE ---
Discharge instructions provided to patient. Dr. Zhang also at bedside. Pt. states that she does not have a glucometer at home. Dr. Zhang states that she will call RX in to [facility] for glucometer and related supplies. Pt daughter bringing O2 tank for transport home. Pt has no questions or concerns at this time regarding discharge.
== END 2023-01-04 11:07 | disposition home or self-care (01) | DRG 177 ==
LOC: ER 15:36 → MEDSURG 17:05
PROVIDERS: Admitting Provider Internal Medicine; Emergency Provider Family Medicine; PCP Family Medicine; Visit Provider Internal Medicine
DX: U07.1 COVID-19 (principal); J12.82 Pneumonia due to coronavirus disease 2019; J96.21 Acute and chronic respiratory failure with hypoxia; F33.1 Major depressive disorder, recurrent, moderate; Z68.42 Body mass index [BMI] 45.0-49.9, adult; J44.1 Chronic obstructive pulmonary disease with (acute) exacerbation; F17.210 Nicotine dependence, cigarettes, uncomplicated; R05.3 Chronic cough; I10 Essential (primary) hypertension; Z86.73 Personal history of transient ischemic attack (TIA), and cerebral infarction without residual deficits; G47.00 Insomnia, unspecified; M06.9 Rheumatoid arthritis, unspecified; M62.838 Other muscle spasm; E11.40 Type 2 diabetes mellitus with diabetic neuropathy, unspecified; K21.9 Gastro-esophageal reflux disease without esophagitis; G47.33 Obstructive sleep apnea (adult) (pediatric); M19.90 Unspecified osteoarthritis, unspecified site; Z66 Do not resuscitate; R91.1 Solitary pulmonary nodule; G89.29 Other chronic pain; E66.01 Morbid (severe) obesity due to excess calories; M54.50 Low back pain, unspecified; Z87.01 Personal history of pneumonia (recurrent)
CPT/HCPCS: 36415; 36416; 36600; 71045; 71275; 80048; 80051; 80053; 81001; 82330; 82550; 82805; 82962; 83735; 83880; 84145; 85025; 85378; 86403; 87070; 87635; 87804; 93005; 94640; 94664; 94762; 96372; 99285; J0248; J1100; J1644; J1815; J2405; J7030; J7626

== ENCOUNTER 2023-01-09 18:07 | Emergency (ER) | payer MEDICAID, SELFPAY ==
[2023-01-09 18:10] VITALS: BP 131/91; PULSE 71; RESP 18; TEMP 37.1; O2SAT 99; BMI 47.5
[2023-01-09 18:17] LABS: Glucose Point of Care 334 mg/dL (70-110)
--- NOTE | 2023-01-09 18:17 | XRR_ITS ---
PROCEDURE INFORMATION: Exam: XR Chest Exam date and time: 01/09/2023 6:22 PM Age: 57 years old Clinical indication: Shortness of breath; Patient HX: SOB; Copd; Recent covid; Hyperglycemia; Smoker TECHNIQUE: Imaging protocol: Radiologic exam of the chest. Views: 1 view. COMPARISON: CT angio chest PE protcl [id number] 01/02/2023 1:50 PM FINDINGS: Lungs: Suggestion of hazy opacities in the peripheral right lung, however evaluation is somewhat limited due to patient habitus. No focal consolidation. Pleural spaces: No large pleural effusion. No pneumothorax. Heart/Mediastinum: Unremarkable cardiomediastinal silhouette. Bones/joints: No acute abnormality. XR/XR chest 1V portable [id number] IMPRESSION: Suggestion of hazy opacities in the peripheral right lung, however evaluation is somewhat limited due to patient habitus.
--- NOTE | 2023-01-09 18:19 | ED_ITS ---
HPI - COVID General: Chief Complaint: COVID symptoms Stated Complaint: HYPERGLYCEMIA Time Seen by Provider: 01/09/23 18:12 Source: patient and EMS Mode of arrival: EMS Limitations: no limitations History of Present Illness: 57-year-old female with history of diabetes she was diagnosed with COVID last w the [place] [place] been admitted for COVID she is on 4 to 5 L oxygen at home she been on steroids states her blood sugars been running high here is 330 she is on metformin. States she also has allover pain from her COVID she is in no respiratory distress she has had a cough. COVID 19 common symptoms: positive non-productive cough and body aches; negative fever(s), chills, dyspnea, headache(s), throat pain, nausea, vomiting or diarrhea COVID 19 other sytmptoms: negative chest pain COVID Results: SARS-CoV-2 RNA (RT-PCR) Not detected (NOT DETECTED) 11/23/19 0 0:15 SARS-CoV-2 (PCR) Detected (NOT DETECT) A 01/01/23 14:03 Coronavirus Type 229E (PCR) Not detected (NOT DETECT) 01/01/23 14:03 Review of Systems Const: Reports: body aches; Denies: fever(s), chills or change in appetite ENMT: Denies: throat pain or dental pain Card: Denies: chest pain Resp: Reports: non-productive cough; Denies: dyspnea GI: Denies: abdominal pain, nausea, vomiting or diarrhea : Denies: dysuria Musc: Denies: neck pain or back pain Skin/Breast: Denies: rash Neuro: Denies: headache(s) PFSH ED PFSH: Medical History delivery delivered Chronic cystitis Community acquired pneumonia Constipation Hematochezia History of bipolar disorder History of hypertension History of stroke Insomnia Pulmonary nodules Rheumatoid arthritis Surgical History History of cholecystectomy History of hysterectomy History of incisional hernia repair History of knee surgery History of tonsillectomy Family History Mother , at age 78 COVID-19 Brother , at age 58 Cancer Colon Father , at age 45 Car occupant injured in traffic accident Cancer Colon Family/Other Cancer Paternal-lung Other Chronic kidney disease (CKD) Dementia Diabetes Hyperlipidemia Hypertension Lung disease Stroke Denies family history of CAD (coronary artery disease) Clotting disorder Psychiatric illness Anesthesia complication Bleeding disorder Social History Smoking and tobacco/nicotine status: current every day tobacco/nicotine user cigarettes Packs smoked per day: 1 Years cigarettes smoked: 30 [ Other cigarette details: Currently smoking 0.5 ppd and vaping.] Quit status (tobacco/nicotine): considering quitting Alcohol intake: never Substance/Drug Use: former Adopted: No Lives independently: Yes Household members: spouse Marital status: Number of grandchildren: 2 Current occupational status: disabled Special sherine needs: No Agree to transfusion: Yes Female Reproductive History: Spontaneous abortions: No Physical Exam Const: COMMON NORMALS: no acute distress, patient oriented x3 and healthy appearing HENMT: COMMON NORMALS: normocephalic and atraumatic HEAD & SCALP: nor mocephalic and atraumatic Eye: COMMON NORMALS: Equal, round and reactive pupils present and EOMs intact bilaterally PUPIL: Yes Equal, round and reactive pupils present Neck/C-Spine: COMMON NORMALS: full ROM and supple Chest: COMMONS NORMALS: normal inspection of the chest and normal palpation of entire chest wall Resp: COMMON NORMALS: normal respiratory effort, No retractions, No use of accessory muscles and clear to auscultation bilaterally AUSCULTATION: clear to auscultation bilaterally Cardio: COMMON NORMALS: regular rate, regular rhythm and No murmurs present (Cardio) RATE: regular rate RHYTHM: regular rhythm GI: COMMON NORMALS: Normal to inspection, nondistended, normoactive bowel sounds present, Soft to palpation, non-tender and no masses PALPATION: Yes Soft to palpation Extremity: COMMON NORMALS: normal to inspection and full ROM Neuro: COMMON NORMALS: patient oriented x3, moves all extremities and no focal motor deficits Psych: COMMON NORMALS: mental status grossly normal, Normal thought process present and cooperative THOUGHT PROCESS: Normal thought process present Skin: COMMON NORMALS: no rashes or lesions noted and no wounds GENERAL SKIN EXAM: no rashes or lesions noted Course Vital Signs: Vital signs: Vital Signs Temperature 98.7 F 01/09/23 18:10 Pulse Rate 71 01/09/23 18:10 Respiratory Rate 18 01/09/23 18:36 Blood Pressure 131/91 01/09/23 18:10 Pulse Oximetry 97 01/09/23 18:36 Oxygen Delivery Me thod Nasal Cannula 01/09/23 18:22 Oxygen Flow Rate 4 01/09/23 18:22 MDM - COVID Medical Decision Making Patient presents here with hyperglycemia likely from her steroids sugar here is improved she is at her baseline oxygen and well-appearing here she stable for discharge follow-up with PCP return if worsening. Medical Records I reviewed the patient's medical records. Lab Data I reviewed the patient's lab results. 01/09/23 17:54 01/09/23 17:54 Radiology Impressions Chest X-Ray 01/09/23 18:17 IMPRESSION: Suggestion of hazy opacities in the peripheral right lung, however evaluation is somewhat limited due to patient habitus. Laboratory Results WBC 12.97 10^3/uL (3.29-11.43) H 01/09/23 17:54 RBC 4.94 10^6/uL (3.85-5.65) 01/09/23 17:54 Hgb 14.40 g/dL (11.27-16.99) 01/09/23 17:54 Hct 45.7 % (36-47) 01/09/23 17:54 MCV 92.5 fl (85-98) 01/09/23 17:54 MCH 29.1 pg (27-33) 01/09/23 17:54 MCHC 31.5 g/dL (30-55) 01/09/23 17:54 RDW 13.4 % (12.1-15.1) 01/09/23 17:54 Plt Count 243 10^3/cmm (157-399) 01/09/23 17:54 MPV 10.8 fL (7.4-10.4) H 01/09/23 17:54 Neut % (Auto) 74.6 % 01/09/23 17:54 Lymph % (Auto) 17.3 % 01/09/23 17:54 [place] % (Auto) 6.8 % 01/09/23 17:54 Eos % (Auto) 0.2 % 01/09/23 17:54 Baso % (Auto) 0.3 % 01/09/23 17:54 Neut # (Auto) 9.69 10^3/uL (1.8-7.7) H 01/09/23 17:54 Lymph # (Auto) 2.2 10^3/uL (0.8-4.8) 01/09/23 17:54 [place] # (Auto) 0.9 10^3/uL (0.2-0.9) 01/09/23 17:54 Eos # (Auto) 0.0 10^3/uL (0.0-0.8) 01/09/23 17:54 Baso # (Auto) 0.0 10^3/uL (0.0-0.1) 01/09/23 17:54 Nucleated RBC % (auto) 0 % 01/09/23 17:54 Nucleated RBCs # 0.0 /100WBC 01/09/23 17:54 Sodium 133 mmol/L (136-145) L 01/09/23 17:54 Potassium 4.7 mmol/L (3.5-5.1) 01/09/23 17:54 Chloride 93 mmol/L (98-107) L 01/09/23 17:54 Carbon Dioxide 28 mmol/L (22-29) 01/09/23 17:54 Anion Gap 16.7 (5-19) 01/09/23 17:54 BUN 15 mg/dL (6-20) 01/09/23 17:54 Creatinine 0.6 mg/dL (0.5-0.9) 01/09/23 17:54 GFR Calculation 102.7 mL/min (90-130) 01/09/23 17:54 Glucose 379 mg/dL (65-115) H 01/09/23 17:54 POC Glucose 291 mg/dL (70-110) H 01/09/23 19:05 Calculated Osmolality 292 mOsm/kg (285-295) 01/09/23 17:54 Calcium 9.7 mg/dL (8.5-10.5) 01/09/23 17:54 Total Bilirubin 0.5 mg/dL (0.15-1.2) 01/09/23 17:54 AST 52 U/L (0-32) H 01/09/23 17:54 ALT 22 U/L (0-33) 01/09/23 17:54 Alkaline Phosphatase 79 U/L (35-105) 01/09/23 17:54 Total Protein 7.8 g/dL (6.6-8.7) 01/09/23 17:54 Albumin 4.0 g/dL (3.5-5.2) 01/09/23 17:54 Globulin 3.8 g/dL (1.3-4.6) 01/09/23 17:54 SARS-CoV-2 RNA (RT-PCR) Not detected (NOT DETECTED) 11/23/19 0 0:15 SARS-CoV-2 (PCR) Detected (NOT DETECT) A 01/01/23 14:03 Coronavirus Type 229E (PCR) Not detected (NOT DETECT) 01/01/23 14:03 All radiology interpretation(s) finalized by discharge Discharge Plan Discharge Patient Disposition: Home Clinical Impression: COVID-19, Hyperglycemia Condition: Stable Prescriptions: New hydrocodone-acetaminophen 5-325 mg tablet 1 tab PO Q6H PRN (Reason: pain) Qty: 8 0RF Continued promethazine 25 mg tablet 25 mg PO TID PRN (Reason: nausea and vomiting) Qty: 30 1RF No Action (DME) manual wheelchair See Rx Instructions .Route .MEDSUPPLY Qty: 1 0RF Rx Instructions: As directed (DME) TENS unit and equipment See Rx Instructions .Route .MEDSUPPLY Qty: 1 0RF Rx Instructions: As directed (DME) electric motorized wheelchair See Rx Instructions .Route .MEDSUPPLY Qty: 1 0RF Rx Instructions: As directed hydrocodone-acetaminophen 7.5-325 mg tablet 1 tab PO BID PRN (Reason: pain) 30 Days Qty: 60 0RF (DME) Left wrist brace See Rx Instructions .Route .MEDSUPPLY Qty: 1 0RF Rx Instructions: As directed (DME) wheelchair See Rx Instructions .Route .MEDSUPPLY Qty: 1 0RF Rx Instructions: As directed (DME) CPAP 6-16cm setting See Rx Instructions .ROUTE .MEDSUPPLY Qty: 1 0RF Rx Instructions: As directed (DME) CPAP mask, tubing, supplies See Rx Instructions .ROUTE .MEDSUPPLY Qty: 1 1RF Rx Instructions: As directed gabapentin 600 mg tablet 600 mg PO TID Qty: 180 1RF ipratropium-albuterol 0.5 mg-3 mg(2.5 mg base)/3 mL solution for nebulization 3 ml inhalation Q6H PRN (Reason: shortness of breath or wheezing) Qty: 180 5RF aspirin 81 mg Tablet,Chewable 81 mg PO QAM fluticasone propion-salmeterol [Advair Diskus] 250-50 mcg/dose blister with device 1 inh inhalation BID Qty: 60 3RF Lipitor 40 mg tablet 40 mg PO BEDTIME tizanidine 4 mg tablet 4 mg PO Q8H PRN (Reason: Muscle Spasticity) meloxicam 15 mg tablet 15 mg PO QAM quetiapine 100 mg tablet 100 mg PO BEDTIME famotidine 20 mg tablet 20 mg PO BID Lexapro 20 mg tablet 20 mg PO QAM (DME) Blood Glucose Monitoring Kit See Rx Instructions .Route Qty: 1 0RF Rx Instructions: As directed (DME) lancets Misc See Rx Instructions .Route Qty: 100 0RF Rx Instructions: As directed (DME) Blood Glucose Test Strip See Rx Instructions .Route Qty: 50 0RF Rx Instructions: As directed metformin 500 mg tablet 1,000 mg PO BID Qty: 60 3RF Discharge Orders: Discharge ED (Routine); Ordered 01/09/23 Ordered By: Karen Oviedo Referrals: Robbie Burrell MD [Primary Care Provider] - 1-3 days Discharge Diet: Advance as tolerated Discharge Activity: Resume usual activity Patient Instructions: Diabetic Hyperglycemia (ED) Coding Level of Care Code ED [facility] [employer] for [facility] [place]
[2023-01-09 18:22] VITALS: O2SAT 98
[2023-01-09] MEDS: insulin regular-human 100 units/1 mL 5 UNIT IVP (18:31)
[2023-01-09 18:32] LABS: Basophils % 0.3 %; Eosinophils % 0.2 %; Hematocrit 45.7 % (36-47); Lymphocytes # 2.2 10^3/uL (0.8-4.8); Lymphocytes % 17.3 %; Mean Corpuscular HGB Conc 31.5 g/dL (30-55); Mean Corpuscular Hemoglobin 29.1 pg (27-33); Mean Corpuscular Volume 92.5 fl (85-98); Mean Platelet Volume 10.8 fL (7.4-10.4); Monocytes # 0.9 10^3/uL (0.2-0.9); Monocytes % 6.8 %; Neutrophils # 9.69 10^3/uL (1.8-7.7); Neutrophils % 74.6 %; Nucleated Red Blood Cells % 0 %; Platelet Count 243 10^3/cmm (157-399); Red Blood Count 4.94 10^6/uL (3.85-5.65); Red Cell Distribution Width 13.4 % (12.1-15.1); White Blood Count 12.97 10^3/uL (3.29-11.43)
[2023-01-09 18:36] VITALS: RESP 18; O2SAT 97
[2023-01-09] MEDS: morphine 4 mg/mL SDV 1 mL IVP (18:36)
[2023-01-09] MEDS: ondansetron 2 mg/ML SDV 2 mL 4 MG IVP (18:37)
[2023-01-09 18:41] LABS: Alanine Aminotransferase 22 U/L (0-33); Alkaline Phosphatase 79 U/L (35-105); Anion Gap 16.7 (5-19); Aspartate Amino Transferase 52 U/L (0-32); Blood Urea Nitrogen 15 mg/dL (6-20); Calcium 9.7 mg/dL (8.5-10.5); Carbon Dioxide 28 mmol/L (22-29); Chloride 93 mmol/L (98-107); Globulin 3.8 g/dL (1.3-4.6); Glomerular Filtration Rate 102.7 mL/min (90-130); Glucose 379 mg/dL (65-115); Osmolality Calculated 292 mOsm/kg (285-295); Potassium 4.7 mmol/L (3.5-5.1); Sodium 133 mmol/L (136-145); Total Bilirubin 0.5 mg/dL (0.15-1.2); Total Protein 7.8 g/dL (6.6-8.7)
[2023-01-09 19:09] LABS: Glucose Point of Care 291 mg/dL (70-110)
[2023-01-09] MEDS: HYDROcodone-acetaminophen 10-325 mg Tablet 1 TAB PO (19:32)
[2023-01-09 19:44] VITALS: BP 121/83; PULSE 80; RESP 22; O2SAT 95
== END 2023-01-09 19:46 | disposition home or self-care (01) ==
PROVIDERS: Emergency Provider Emergency Medicine; PCP Family Medicine
DX: R73.9 Hyperglycemia, unspecified (principal); U07.1 COVID-19; Z79.82 Long term (current) use of aspirin; Z79.84 Long term (current) use of oral hypoglycemic drugs; F17.210 Nicotine dependence, cigarettes, uncomplicated; I10 Essential (primary) hypertension; Z86.73 Personal history of transient ischemic attack (TIA), and cerebral infarction without residual deficits
CPT/HCPCS: 36416; 71045; 80053; 82962; 85025; 96374; 96375; 99284; J1815; J2270; J2405

== ENCOUNTER → 2023-01-12 08:34 | Outpatient (BNVA) | payer MEDICAID, SELFPAY | PROVIDERS: PCP Family Medicine; Visit Provider Internal Medicine Pulmonary Disease | DX: Z09 Encounter for follow-up examination after completed treatment for conditions other than malignant neoplasm (principal); R91.1 Solitary pulmonary nodule; J43.2 Centrilobular emphysema; J96.12 Chronic respiratory failure with hypercapnia; G89.29 Other chronic pain; G47.33 Obstructive sleep apnea (adult) (pediatric); F17.210 Nicotine dependence, cigarettes, uncomplicated; Z99.81 Dependence on supplemental oxygen; Z99.89 Dependence on other enabling machines and devices; Z86.16 Personal history of COVID-19; M54.50 Low back pain, unspecified | CPT/HCPCS: 99214 ==

== ENCOUNTER → 2023-01-24 15:48 | Outpatient (BNVA) | payer MEDICAID, SELFPAY | PROVIDERS: PCP Family Medicine; Visit Provider Family Medicine | DX: G89.29 Other chronic pain (principal); E11.69 Type 2 diabetes mellitus with other specified complication | CPT/HCPCS: 83036 ==

== ENCOUNTER 2023-02-03 10:21 | Outpatient (CLI) | payer MEDICAID, SELFPAY ==
[2023-02-03 10:44] VITALS: PULSE 82; RESP 18; O2SAT 94
[2023-02-03 10:49] VITALS: PULSE 75
[2023-02-03] MEDS: albuterol 2.5 mg/3 mL Neb INHALATION (11:15)
== END 2023-02-03 10:22 | disposition home or self-care (01) ==
LOC: RT 10:23
PROVIDERS: PCP Family Medicine; Visit Provider Internal Medicine Pulmonary Disease
DX: J44.9 Chronic obstructive pulmonary disease, unspecified (principal)
CPT/HCPCS: 94060; 94726; 94729; J7613

== ENCOUNTER 2023-02-05 15:29 | Emergency (ER) | payer MEDICAID, SELFPAY ==
[2023-02-05 15:39] VITALS: BP 156/92; PULSE 76; RESP 18; TEMP 36.7; O2SAT 97
--- NOTE | 2023-02-05 15:42 | XRR_ITS ---
PROCEDURE INFORMATION: Exam: XR Left Hip Exam date and time: 02/05/2023 5:19 PM Age: 57 years old Clinical indication: Hip pain; Left hip TECHNIQUE: Imaging protocol: Radiologic exam of the left hip. Views: 2 or 3 views hip with pelvis when performed. COMPARISON: CR XR hip BI 3-4V wo/w pel [id number] 12/16/2022 5:33 PM FINDINGS: Bones/joints: There are small marginal osteophytes across the left hip joint. Soft tissues: Unremarkable. XR/XR hip LT 2-3V wo/w pel* [id number] IMPRESSION: Small marginal osteophytes are present across the left hip joint consistent with primary osteoarthritic change.
--- NOTE | 2023-02-05 15:49 | W.ED.EXTPRO ---
HPI - Extremity Problem General: Chief complaint: Extremity Injury, Lower Stated complaint: HIP PAIN Time Seen by Provider: 02/05/23 15:37 History of Present Illness: Patient presents to the ER with complaints of left hip/leg pain. Patient states she stepped off a curb the wrong way about a week ago and had left hip pain she was taking Tylenol ibuprofen and somewhat managing it up until last several days it just kept getting worse. Patient said the pain is now radiating down into her groin and down to her thigh. Patient is able to stand on it as she rotated to get onto the stretcher. Review of Systems General: Reports: 10 or more systems reviewed and unremarkable except in HPI and below PFSH ED PFSH: Medical History Pulmonary nodules Rheumatoid arthritis History of stroke Chronic cystitis delivery delivered Constipation Hematochezia Insomnia Community acquired pneumonia History of bipolar disorder History of hypertension Surgical History History of incisional hernia repair History of hysterectomy History of cholecystectomy History of tonsillectomy History of knee surgery Family History Mother , at age 78 COVID-19 Brother , at age 58 Cancer Colon Father , at age 45 Car occupant injured in traffic accident Cancer Colon Family/Other Cancer Paternal-lung Other Chronic kidney disease (CKD) Dementia Diabetes Hyperlipidemia Hypertension Lung disease Stroke Denies family history of CAD (coronary artery disease) Clotting disorder Psychiatric illness Anesthesia complication Bleeding disorder Social History Smoking and tobacco/nicotine status: current every day tobacco/nicotine user cigarettes Packs smoked per day: 1 Years cigarettes smoked: 30 [ Other cigarette details: Currently smoking 6-7/day] Quit status (tobacco/nicotine): considering quitting Alcohol intake: never Substance/Drug Use: former Adopted: No Lives independently: Yes Household members: spouse Marital status: Number of grandchildren: 2 Current occupational status: disabled Special sherine needs: No Agree to transfusion: Yes Female Reproductive History: Spontaneous abortions: No Physical Exam Const: COMMON NORMALS: no acute distress, average body habitus, patient oriented x3, no limitations, healthy appearing, alert and well nourished HENMT: COMMON NORMALS: normocephalic, atraumatic, hearing grossly normal bilaterally, external ears normal, Normal external nose present, moist oral mucous membranes and oropharynx normal HEAD & SCALP: normocephalic and atraumatic NOSE: Normal external nose present EXTERNAL EAR: Yes external ears normal Eye: COMMON NORMALS: Equal, round and reactive pupils present, EOMs intact bilaterally, conjunctivae normal and no scleral icterus CONJUNCTIVA: Yes conjunctivae normal PUPIL: Yes Equal, round and reactive pupils present Neck/C-Spine: COMMON NORMALS: no JVD Chest: COMMONS NORMALS: normal inspection of the chest and normal palpation of entire chest wall Resp: COMMON NORMALS: normal respiratory effort, No retractions, No use of accessory muscles and clear to auscultation bilaterally AUSCULTATION: clear to auscultation bilaterally Cardio: COMMON NORMALS: no JVD, regular rate, regular rhythm, S1 normal heart sound present, S2 normal heart sound present, No gallops present (Cardio), No clicks present (Cardio), No murmurs present (Cardio) and No rub (Cardio) RATE: regular rate RHYTHM: regular rhythm HEART SOUNDS: S1 normal heart sound present and S2 normal heart sound present GI: COMMON NORMALS: Normal to inspection, nondistended, normoactive bowel sounds present, Soft to palpation, non-tender, No hepatosplenomegaly present and no masses PALPATION: Yes Soft to palpation and Yes No hepatosplenomegaly present Extremity: NARRATIVE EXTREMITY EXAM: Painful to palpate over left hip region. No obvious crepitus or deformity noted. Neuro: COMMON NORMALS: patient oriented x3 SENSORIUM/ORIENTATION: Yes alert Course Vital Signs: Vital signs: Vital Signs Temperature 98.1 F 02/05/23 15:39 Pulse Rate 78 02/05/23 18:00 Respiratory Rate 18 02/05/23 18:00 Blood Pressure 148/75 02/05/23 18:00 Pulse Oximetry 94 02/05/23 18:00 Oxygen Delivery Me thod Nasal Cannula 02/05/23 18:00 Oxygen Flow Rate 4 02/05/23 18:00 MDM - Extremity (Nontraumatic) Medical Decision Making Patient had a hip x-ray that was read off as negative for acute changes but did show osteoarthritic changes. Patient was given total of 8 mg morphine, 4 mg Zofran, 60 mg of Norflex, patient's pain did improve. Patient will be discharged on prednisone and Norflex. Patient to follow-up with her PCP within the next 7 days for further evaluation and treatment. Patient can continue to take any hydrocodone that she has at home. Differential Diagnosis Unlikely herpes zoster, gout, cellulitis, superficial thrombophlebitis, deep venous thrombosis of upper extremity, lower extremity edema or deep vein thrombosis of lower extremity Medical Records I reviewed the patient's medical records. Lab Data I reviewed the patient's lab results. Radiology Impressions Hip/Pelvis X-Ray 02/05/23 15:42 IMPRESSION: Small marginal osteophytes are present across the left hip joint consistent with primary osteoarthritic change. All radiology interpretation(s) finalized by discharge Discharge Plan Discharge Patient Disposition: Home Clinical Impression: Acute pain of left hip, Arthritis of left hip Condition: Stable Prescriptions: No Action (DME) manual wheelchair See Rx Instructions .Route .MEDSUPPLY Qty: 1 0RF Rx Instructions: As directed (DME) TENS unit and equipment See Rx Instructions .Route .MEDSUPPLY Qty: 1 0RF Rx Instructions: As directed (DME) electric motorized wheelchair See Rx Instructions .Route .MEDSUPPLY Qty: 1 0RF Rx Instructions: As directed albuterol sulfate 90 mcg/actuation HFA aerosol inhaler 2 puff inhalation Q6H PRN nicotine (polacrilex) 4 mg gum 4 mg buccal Q2H Qty: 110 6RF nicotine 21-14-7 mg/24 hr patch, TD daily, sequential See Rx Instructions transdermal .COMPLEX Qty: 56 0RF Rx Instructions: apply 1-21 mg NICOTINE PATCH daily for 28 days; follow with 1-14 mg PATCH daily for 14 days, then 1-7mg PATCH daily for 14 days transdermal tiotropium bromide [Spiriva with HandiHaler] 18 mcg capsule, w/inhalation device 1 cap inhalation DAILY Qty: 60 6RF Rx Instructions: puncture 1 cap using device; one dose = 2 inhalations (DME) Left wrist brace See Rx Instructions .Route .MEDSUPPLY Qty: 1 0RF Rx Instructions: As directed glipizide 10 mg tablet 10 mg PO DAILY Qty: 30 0RF (DME) lancets Misc See Rx Instructions .Route Qty: 100 0RF Rx Instructions: As directed (DME) Blood Glucose Test Strip See Rx Instructions .Route Qty: 50 5RF Rx Instructions: As directed (DME) wheelchair See Rx Instructions .Route .MEDSUPPLY Qty: 1 0RF Rx Instructions: As directed (DME) CPAP 6-16cm setting See Rx Instructions .ROUTE .MEDSUPPLY Qty: 1 0RF Rx Instructions: As directed (DME) CPAP mask, tubing, supplies See Rx Instructions .ROUTE .MEDSUPPLY Qty: 1 1RF Rx Instructions: As directed gabapentin 600 mg tablet 600 mg PO TID Qty: 180 1RF ipratropium-albuterol 0.5 mg-3 mg(2.5 mg base)/3 mL solution for nebulization 3 ml inhalation Q6H PRN (Reason: shortness of breath or wheezing) Qty: 180 5RF tizanidine 4 mg tablet See Rx Instructions .ROUTE .COMPLEX Qty: 60 0RF Dose Instruction: TAKE 1 TABLET BY MOUTH EVERY 8 HOURS NEEDED FOR MUSCLE SPASTICITY Rx Instructions: TAKE 1 TABLET BY MOUTH EVERY 8 HOURS NEEDED FOR MUSCLE SPASTICITY fluticasone propion-salmeterol [Advair Diskus] 250-50 mcg/dose blister with device See Rx Instructions .ROUTE .COMPLEX Qty: 60 3RF Dose Instruction: TAKE 1 PUFF BY MOUTH TWICE A DAY Rx Instructions: TAKE 1 PUFF BY MOUTH TWICE A DAY hydrocodone-acetaminophen 5-325 mg tablet 2 tab PO Q8H PRN (Reason: pain) 30 Days Qty: 180 0RF promethazine 25 mg tablet 25 mg PO TID PRN (Reason: nausea and vomiting) Qty: 30 1RF aspirin 81 mg Tablet,Chewable 81 mg PO QAM Lipitor 40 mg tablet 40 mg PO BEDTIME meloxicam 15 mg tablet 15 mg PO QAM quetiapine 100 mg tablet 100 mg PO BEDTIME famotidine 20 mg tablet 20 mg PO BID Lexapro 20 mg tablet 20 mg PO QAM (DME) Blood Glucose Monitoring Kit See Rx Instructions .Route Qty: 1 0RF Rx Instructions: As directed metformin 500 mg tablet 1,000 mg PO BID Qty: 60 3RF Discharge Orders: Discharge ED (Routine); Ordered 02/05/23 Ordered By: Stephen Mcgowan Referrals: Robbie Burrell MD [Primary Care Provider] - 1 week Patient Instructions: Arthralgia (ED), Hip Pain (ED) Activity Restrictions/Additional Instructions: Please take all your medicine as directed. Please follow-up with your family practice physician within next 7 days for further evaluation and treatment. Coding Level of Care Code ED Enamel Buffer for Abdirahman Hill
[2023-02-05] MEDS: ondansetron 2 mg/ML SDV 2 mL 4 MG IVP (16:05)
[2023-02-05] MEDS: morphine 4 mg/mL SDV 1 mL IVP ×2 (16:07→17:59)
[2023-02-05] MEDS: orphenadrine 30 mg/mL Inj 2 mL 60 MG IVP (16:44)
[2023-02-05 16:52] VITALS: BP 157/99; PULSE 89; O2SAT 94
[2023-02-05 17:59] VITALS: RESP 18; O2SAT 94
[2023-02-05 18:00] VITALS: BP 148/75; PULSE 78; RESP 18; O2SAT 94
== END 2023-02-05 19:31 | disposition home or self-care (01) ==
PROVIDERS: Emergency Provider Emergency Medicine; PCP Family Medicine
DX: M13.852 Other specified arthritis, left hip (principal); Z79.82 Long term (current) use of aspirin; Z79.84 Long term (current) use of oral hypoglycemic drugs; F17.210 Nicotine dependence, cigarettes, uncomplicated; Z86.73 Personal history of transient ischemic attack (TIA), and cerebral infarction without residual deficits; I10 Essential (primary) hypertension
CPT/HCPCS: 73502; 96374; 96375; 96376; 99284; J2270; J2360; J2405

== ENCOUNTER 2023-04-05 09:35 | Outpatient (CLI) | payer MEDICAID, SELFPAY ==
--- NOTE | 2023-04-05 10:00 | CT_ITS ---
WS: [id number] CT chest wo con [id number] HISTORY: follow up on lung nodule TECHNIQUE: Axial imaging performed through the thorax. Coronal and sagittal reformats are submitted. All CT scans at [facility] use at least one of these dose optimization techniques: automated exposure control; mA and/or kV adjustment per patient size (includes targeted exams where dose is mat ched to clinical indication); or iterative reconstruction. CONTRAST: Omnipaque 350; 100 mL IV. DLP: 768.20 mGy.cm COMPARISON: 01/02/2023, 11/17/2022, 11/22/2021 Lungs and central airway: Mild hazy attenuation of both lungs is probably due to poor inspiration. Re identified is the 4 x 5 mm noncalcified nodule in the RIGHT lower lobe stable since 11/17/2022 and 11/22/2021. No new mass or nodule. Pleura: Normal. No pleural effusion. Heart and pericardium: Normal size heart with no pericardial effusion. Mediastinum and fausto: No mediastinal or hilar adenopathy. There are small mediastinal and hilar lymph nodes but not enlarged. Vessels: Pulmonary artery is enlarged to 4.0 cm. Minimal atherosclerosis aorta. Chest wall and lower neck: Enlarged RIGHT thyroid extends substernal. Probably representing a goiter. Similar to prior studies. Upper abdomen: Hepatic steatosis. Prior cholecystectomy. Reidentified is the 2.2 cm RIGHT adrenal mas s. This nodule is most consistent with an adenoma. There is a smaller 1.3 cm LEFT adrenal adenoma. Th kristy adenomas have been previously described on prior studies. Reidentified is a central LEFT parapelv ic cyst which was also seen on 07/29/2022. Osseous structures: No destructive process. IMPRESSION: 1. Stable RIGHT lower lobe pulmonary nodule measuring 4 x 5 mm. This nodule is stable since 2. Nodule was also identified on a prior study from 07/14/2013 but has slightly increased in size sinc e then. No new mass or nodule. Return to annual lung screening CT evaluation. 2. RIGHT thyroid goiter. 3. Stable bilateral adrenal masses. 4. Pulmonary hypertension. 5. Prior cholecystectomy.
== END 2023-04-05 09:36 | disposition home or self-care (01) ==
LOC: RAD 09:35
PROVIDERS: PCP Family Medicine; Visit Provider Internal Medicine Pulmonary Disease
DX: R91.1 Solitary pulmonary nodule (principal)
CPT/HCPCS: 71250

== ENCOUNTER → 2023-04-21 09:59 | Outpatient (BNVA) | payer MEDICAID, SELFPAY | PROVIDERS: PCP Family Medicine; Visit Provider Family Medicine | DX: E04.9 Nontoxic goiter, unspecified | CPT/HCPCS: 80053; 83036; 84439; 84443 ==

== ENCOUNTER 2023-05-27 14:45 | Outpatient (CLI) | payer MEDICAID, SELFPAY ==
--- NOTE | 2023-05-27 15:15 | MR_ITS ---
WS: [id number] MRI OF THE PELVIS WITHOUT GADOLINIUM ENHANCEMENT. INDICATION: Pain low back and LEFT hip TECHNIQUE: Coronal T1, coronal STIR, axial T1, axial T2, and sagittal T2. FINDINGS: Normal bone marrow signal in the bony pelvis and sacrum. No sacral insufficiency fractures. Edema within the LEFT femoral head with associated edema in the adjacent LEFT acetabulum. Suggestion of serpiginous susceptibility artifact in the LEFT femoral head suspicious for avascular necrosis. S mall impaction fracture cannot be excluded due to limited visualization. Small LEFT joint effusion. Moderate to advanced joint arthritis RIGHT hip with a small amount of edema in the RIGHT femoral head . This may be due to avascular necrosis or degenerative change. No other acute findings. IMPRESSION: Exam is somewhat limited due to body habitus and large [id number] for bony pelvis. 1. T2 signal abnormality in the LEFT femoral head suspicious for avascular necrosis. Small impactio n fracture or contusion not excluded. Infection is less likely. Associated edema in the adjacent acet abulum. Recommend further evaluation with either dedicated LEFT hip MRI or LEFT hip CT for better res olution. 2. Small amount of edema in the RIGHT femoral head either due to a small amount of avascular necrosi s or degenerative change. 3. Normal bone marrow signal in the sacrum. No insufficiency fractures. 4. No other acute findings.
--- NOTE | 2023-05-27 16:00 | MR_ITS ---
WS: [id number] MRI LUMBAR SPINE NONCONTRAST TECHNIQUE: Sagittal T1, T2 and STIR imaging. Axial T1 and T2 imaging. CLINICAL INFORMATION: lower back pain COMPARISON: None. FINDINGS: Mild lumbar curve. No acute compression. No high-grade central canal stenosis. L1-L2: Normal. L2-L3: Mild disc bulging with slight narrowing of the LEFT subarticular recess. Mild facet arthropath y. Foramen are patent. L3-L4: Mild disc bulging with narrowing of the LEFT subarticular recess and impingement of traversing LEFT L4 nerve root. Mild central canal stenosis. Moderate facet arthropathy. Moderate LEFT foraminal narrowing with slight impingement on the exiting LEFT L3 nerve root. RIGHT foramen is patent. L4-L5: Mild annular bulging with narrowing of the subarticular recess bilaterally RIGHT greater than LEFT. Mild RIGHT foraminal narrowing. LEFT foramen is patent. Moderate facet arthropathy. L5-S1: Mild annular bulging with slight impingement on the S1 nerve roots bilaterally. Mild RIGHT for aminal narrowing. LEFT foramen is patent. Mild facet arthropathy. Visualized pelvic bony structures: Normal. Paravertebral soft tissues: Normal. Partially visualized LEFT renal cyst measuring 4.6 cm IMPRESSION: 1. Mild lumbar curve. No acute compression. No high-grade central canal stenosis. 2. Annular bulging L3-4 with slight impingement on the traversing LEFT L4 nerve root with mild centr al canal stenosis. Moderate LEFT foraminal narrowing with impingement on the exiting L3 nerve root. 3. Mild narrowing of the LEFT L2-3 subarticular recess. 4. Mild annular bulging L4-5 with impingement on the RIGHT subarticular recess and traversing RIGHT L5 nerve root. Mild RIGHT L4-5 foraminal narrowing. 5. Shallow central protrusion C5-C6 in the cervical spine gate cutter imaging. This could further evaluate d with cervical spine MRI.
== END 2023-05-27 14:46 | disposition home or self-care (01) ==
LOC: RAD 14:46
PROVIDERS: PCP Family Medicine; Visit Provider Family Medicine
DX: M54.50 Low back pain, unspecified (principal); M25.552 Pain in left hip; G57.93 Unspecified mononeuropathy of bilateral lower limbs; M51.36 Other intervertebral disc degeneration, lumbar region; M48.061 Spinal stenosis, lumbar region without neurogenic claudication; M50.222 Other cervical disc displacement at C5-C6 level
CPT/HCPCS: 72148; 72195

== ENCOUNTER 2023-06-05 17:35 | Emergency (ER) | payer MEDICAID, SELFPAY ==
[2023-06-05 17:43] VITALS: BP 133/85; PULSE 110; TEMP 36.8; O2SAT 95; BMI 48.8
--- NOTE | 2023-06-05 17:45 | XRR_ITS ---
PROCEDURE INFORMATION: Exam: XR Left Hip Exam date and time: 06/05/2023 6:15 PM Age: 57 years old Clinical indication: Left hip; Patient HX: Chronic lt hip pain; PT states she felt a pop while going from sitting to standing position this am; Recent MR for comparison TECHNIQUE: Imaging protocol: Radiologic exam of the left hip. Views: 2 or 3 views hip with pelvis when performed. COMPARISON: MR pelvis wo con* [id number] 05/27/2023 3:51 PM FINDINGS: Bones/joints: Moderate-severe osteoarthritis of the left hip. Signal abnormality within the anterior column of the left acetabulum/superior pubic ramus compatible with a nondisplaced insufficiency fracture. No displaced fracture. Moderate-severe osteoarthritis of the right hip as well. Soft tissues: No gross soft tissue abnormality. XR/XR hip LT 2-3V wo/w pel* [id number] IMPRESSION: 1. Moderate-severe osteoarthritis of the left hip. No evidence of displaced fracture. 2. Suspected nondisplaced insufficiency fracture of the anterior column of the acetabulum/superior pubic ramus. Consider dedicated MRI of the left hip.
--- NOTE | 2023-06-05 17:54 | ED_ITS ---
HPI - Extremity Problem General: Chief complaint: Extremity Injury, Lower Stated complaint: LEFT HIP PAIN Time Seen by Provider: 06/05/23 17:40 History of Present Illness: 57-year-old female with history of diabe hao, obesity, chronic pain syndrome on Cuthbert's, bipolar disorder and hypertension who presents the emergency room by ambulance with left hip pain. She says she had a fall few weeks back and just recently had a CT scan that showed a hip fracture . However she is not sc heduled to see a surgeon for some time now. Says today she was standing up and had a sudden worsening of pain in her hip. She took several hydrocodone at home and this has not helped. Review of Systems Narrative: Constitutional symptoms: Negative except as documented in HPI. Skin symptoms: Negative except as documented in HPI. Eye symptoms: Negative except as documented in HPI. ENMT symptoms: Negative except as documented in HPI. Respiratory symptoms: Negative except as documented in HPI. Cardiovascular symptoms: Negative except as documented in HPI. Gastrointestinal symptoms: Negative except as documented in HPI. Genitourinary symptoms: Negative except as documented in HPI. Musculoskeletal symptoms: Negative except as documented in HPI. Neurologic symptoms: Negative except as documented in HPI. Psychiatric symptoms: Negative except as documented in HPI. Endocrine symptoms: Negative except as documented in HPI. [facility] ED PFSH: Medical History Pulmonary nodules Rheumatoid arthritis History of stroke Chronic cystitis delivery delivered Constipation Hematochezia Insomnia Community acquired pneumonia History of bipolar disorder History of hypertension Surgical History History of incisional hernia repair History of hysterectomy History of cholecystectomy History of tonsillectomy History of knee surgery Family History Mother , at age 78 COVID-19 Brother , at age 58 Cancer Colon Father , at age 45 Car occupant injured in traffic accident Cancer Colon Family/Other Cancer Paternal-lung Other Chronic kidney disease (CKD) Dementia Diabetes Hyperlipidemia Hypertension Lung disease Stroke Denies family history of CAD (coronary artery disease) Clotting disorder Psychiatric illness Anesthesia complication Bleeding disorder Social History (Updated 04/21/23 @ 09:08 by Corie Aguirre MA) Smoking and tobacco/nicotine status: current every day tobacco/nicotine user cigarettes Packs smoked per day: 0.5 Years cigarettes smoked: 30 [ Other cigarette details: Currently smoking 6-7/day] Quit status (tobacco/nicotine): considering quitting Alcohol intake: never Substance/Drug Use: former Adopted: No Lives independently: Yes Household members: spouse Marital status: Number of grandchildren: 2 Current occupational status: disabled Special sherine needs: No Agree to transfusion: Yes Female Reproductive History: Spontaneous abortions: No Physical Exam Narrative: EXAM NARRATIVE: General: Alert, patient is screaming out in pain with movement. Skin: Warm, dry. Head: Normocephalic, atraumatic. Neck: Supple, trachea midline. Eye: Extraocular movements are intact. Ears, nose, mouth and throat: mucosa moist. Cardiovascular: Regular, Normal peripheral perfusion. Respiratory: Lungs are clear to auscultation, respirations are non-labored, breath sounds are equal, Symmetrical chest wall expansion. Gastrointestinal: Soft, Nontender, Non distended, Normal bowel sounds. Musculoskeletal: N no obvious shortening or rotation of the left leg. She does have considerable pain with any movement. Neurovascularly intact. Neurological: Alert and oriented, No focal neurological deficit observed. Psychiatric: Cooperative, appropriate mood & affect. Course Vital Signs: Vital signs: Vital Signs Temperature 98.3 F 06/05/23 17:43 Pulse Rate 110 H 06/05/23 17:43 Respiratory Rate 18 06/05/23 18:02 Blood Pressure 133/85 06/05/23 17:43 Pulse Oximetry 98 06/05/23 18:02 Oxygen Delivery Me thod Nasal Cannula 06/05/23 17:43 Oxygen Flow Rate 5 06/05/23 17:43 MDM - Extremity (Nontraumatic) Medical Decision Making Medical decision making: Differential diagnosis including but not limited to and based on the above HPI, review of systems and physical exam: MRI was a bit inconclusive. There was some concern for avascular necrosis. Starting workup with just a basic x-ray. Orders placed to evaluate differential diagnosis based on the above differential, HPI and physical exam X-ray of the left hip and pelvis: Did not see any changes from previous x-ray of the hip. There are some degenerative changes. No new fractures. I reviewed the patient's medical record. Reviewed previous films. Reexamination: Lab Data Laboratory Results POC Glucose 147 mg/dL (70-110) H 06/05/23 17:54 XR interpretation done by ED provider, pending radiology final review Other Data Assessment and plan: Hip pain Chronic pain syndrome -Patient received a total of 3 mg of Dilaudid and 60 mg of Norflex. We discussed that with the amount of pain medication she is on at home achieving pain-free situation with acute pain may be nearly impossible. Patient was recently started on extended release morphine and takes 10 mg of hydrocodone several times a day. She is also on gabapentin Flexeril lorazepam and meloxicam at home - Discharged home - Discussed plan with patient. Answered any questions. - Evaluation and treatment of this problem were appropriate in the emergency setting. Discharge Plan Discharge Patient Disposition: Home Clinical Impression: Avascular necrosis, Hip pain, Chronic pain syndrome Condition: Stable Prescriptions: No Action (DME) manual wheelchair See Rx Instructions .Route .MEDSUPPLY Qty: 1 0RF Rx Instructions: As directed (DME) TENS unit and equipment See Rx Instructions .Route .MEDSUPPLY Qty: 1 0RF Rx Instructions: As directed tiotropium bromide [Spiriva with HandiHaler] 18 mcg capsule, w/inhalation device 1 cap inhalation DAILY Qty: 60 6RF Rx Instructions: puncture 1 cap using device; one dose = 2 inhalations (DME) Left wrist brace See Rx Instructions .Route .MEDSUPPLY Qty: 1 0RF Rx Instructions: As directed (DME) lancets Misc See Rx Instructions .Route Qty: 100 0RF Rx Instructions: As directed (DME) lancets Misc See Rx Instructions .MEDSUPPLY Qty: 200 12RF Rx Instructions: Use as directed to prick skin for blood sugar checks alcohol swabs Pads, Medicated 1 pad topical DIRECTED Qty: 200 12RF Rx Instructions: Use as directed to clean skin prior to finger stick or medication injection (DME) motorized electric scooter See Rx Instructions .Route .MEDSUPPLY Qty: 1 0RF Rx Instructions: As directed (DME) Blood Glucose Test Strip See Rx Instructions .MEDSUPPLY Qty: 200 12RF Rx Instructions: Use as directed with glucometer to check blood sugar (DME) lancets Misc See Rx Instructions .MEDSUPPLY Qty: 200 12RF Rx Instructions: Use as directed to prick skin for blood sugar checks alcohol swabs Pads, Medicated 1 pad topical DIRECTED Qty: 200 12RF Rx Instructions: Use as directed to clean skin prior to finger stick or medication injection naloxone [Narcan] 4 mg/actuation spray,non-aerosol 4 mg intranasal Q2M PRN (Reason: opioid overdose) Qty: 2 0RF Rx Instructions: spray 1 dose into ONE nostril; alternate nostrils w each dose glipizide 10 mg tablet See Rx Instructions .ROUTE .COMPLEX Qty: 90 0RF Dose Instruction: TAKE 1 TABLET BY MOUTH EVERY DAY Rx Instructions: TAKE 1 TABLET BY MOUTH EVERY DAY tizanidine 4 mg tablet 4 mg PO BID PRN (Reason: muscle spasticity) Qty: 60 1RF albuterol sulfate 90 mcg/actuation HFA aerosol inhaler 2 puff inhalation Q6H PRN (Reason: shortness of breath or wheezing) Qty: 8.5 3RF Lipitor 40 mg tablet 40 mg PO BEDTIME Qty: 90 1RF Lexapro 20 mg tablet 20 mg PO QAM Qty: 90 1RF (DME) Dexcom G6 Sensor Device See Rx Instructions .Route Qty: 3 2RF Rx Instructions: As directed (DME) Dexcom G6 Shearing Machine Tender Misc See Rx Instructions .Route Qty: 1 0RF Rx Instructions: As directed quetiapine 150 mg tablet 150 mg PO BEDTIME Qty: 30 1RF Rx Instructions: BRAND ONLY (DME) Dexcom G7 Sensor Device See Rx Instructions .Route Qty: 2 3RF Rx Instructions: As directed (DME) Dexcom G7 Shearing Machine Tender Misc See Rx Instructions .Route Qty: 1 3RF Rx Instructions: As directed (DME) wheelchair See Rx Instructions .Route .MEDSUPPLY Qty: 1 0RF Rx Instructions: As directed (DME) CPAP 6-16cm setting See Rx Instructions .ROUTE .MEDSUPPLY Qty: 1 0RF Rx Instructions: As directed (DME) CPAP mask, tubing, supplies See Rx Instructions .ROUTE .MEDSUPPLY Qty: 1 1RF Rx Instructions: As directed ipratropium-albuterol 0.5 mg-3 mg(2.5 mg base)/3 mL solution for nebulization 3 ml inhalation Q6H PRN (Reason: shortness of breath or wheezing) Qty: 180 5RF fluticasone propion-salmeterol [Advair Diskus] 250-50 mcg/dose blister with device See Rx Instructions .ROUTE .COMPLEX Qty: 60 3RF Dose Instruction: TAKE 1 PUFF BY MOUTH TWICE A DAY Rx Instructions: TAKE 1 PUFF BY MOUTH TWICE A DAY (DME) Blood Glucose Test Strip See Rx Instructions .MEDSUPPLY Qty: 200 12RF Rx Instructions: Use as directed with glucometer to check blood sugar (DME) pen needle, diabetic [Pen Needle] 30 gauge x 5/16 needle See Rx Instructions .MEDSUPPLY Qty: 100 12RF Rx Instructions: Use as directed for insulin administration insulin glargine [Lantus Solostar U-100 Insulin] 100 unit/mL (3 mL) insulin pen 20 unit SUBCUT QAM Qty: 15 2RF famotidine 20 mg tablet See Rx Instructions .ROUTE .COMPLEX Qty: 60 1RF Dose Instruction: TAKE 1 TABLET BY MOUTH TWICE A DAY Rx Instructions: TAKE 1 TABLET BY MOUTH TWICE A DAY lorazepam [Ativan] 0.5 mg tablet 0.5 mg PO ONCE Qty: 1 0RF Rx Instructions: take [address] scan gabapentin 600 mg tablet See Rx Instructions .ROUTE .COMPLEX Qty: 90 0RF Dose Instruction: TAKE 1 TABLET BY MOUTH THREE TIMES DAILY Rx Instructions: TAKE 1 TABLET BY MOUTH THREE TIMES DAILY duloxetine 30 mg capsule,delayed release(DR/EC) 30 mg PO DAILY Qty: 30 0RF promethazine 25 mg tablet See Rx Instructions .ROUTE .COMPLEX Qty: 30 0RF Dose Instruction: TAKE 1 TABLET BY MOUTH THREE TIMES DAILY NEEDED FOR NAUSEA AND VOMITING Rx Instructions: TAKE 1 TABLET BY MOUTH THREE TIMES DAILY NEEDED FOR NAUSEA AND VOMITING (DME) Dexcom G6 Transmitter Device See Rx Instructions .Route Qty: 1 0RF Rx Instructions: As directed hydrocodone-acetaminophen 5-325 mg tablet 2 tab PO BID PRN (Reason: pain) 30 Days Qty: 120 0RF Rx Instructions: do not refill until refill date morphine [MS Contin] 30 mg tablet extended release 30 mg PO Q12H 30 Days Qty: 60 0RF Rx Instructions: do not fill before fill date metformin 500 mg tablet 1,000 mg PO BID Qty: 120 3RF cyclobenzaprine 5 mg tablet 10 mg PO BID PRN (Reason: muscle spasm) Qty: 60 0RF aspirin 81 mg Tablet,Chewable 81 mg PO QAM meloxicam 15 mg tablet 15 mg PO QAM Discharge Orders: Discharge ED (Routine); Ordered 04/21/24 Ordered By: Milagros Medley Referrals: Robbie Burrell MD [Primary Care Provider] - (You have been screened and evaluated and felt safe for discharge. Health conditions do change or evolve sometimes and as such it is important that you follow up with your Primary Doctor to be re checked, 3-5 days is a general good time frame for follow up. You are always welcome to return to the ED for re assessment if your symptoms are worsening or you have new concerns) Discharge Diet: Usual diet Discharge Activity: Wheelchair as instructed Patient Instructions: Hip Pain (ED), Opioid Safety, Pain Management Coding Level of Care Code ED Window Covering Sales Consultant for Abdirahman Hill
[2023-06-05 17:57] LABS: Glucose Point of Care 147 mg/dL (70-110)
[2023-06-05] MEDS: ondansetron 2 mg/ML SDV 2 mL 4 MG IVP (18:01)
[2023-06-05 18:02] VITALS: RESP 18; O2SAT 98
[2023-06-05] MEDS: HYDROmorphone 1 mg/mL INJ 1 mL IVP (18:02)
[2023-06-05] MEDS: HYDROmorphone 1 mg/mL INJ 1 mL 2 MG IVP (18:51)
[2023-06-05] MEDS: orphenadrine 30 mg/mL Inj 2 mL 60 MG IVP (18:53)
[2023-06-05 18:54] VITALS: BP 113/73; PULSE 102; RESP 16; O2SAT 97
--- NOTE | 2023-06-05 19:20 | CTR_ITS ---
PROCEDURE INFORMATION: Exam: CT Pelvis Without Contrast; Skeletal Exam date and time: 06/05/2023 7:32 PM Age: 57 years old Clinical indication: Prior surgery; Surgery date: 6+ months; Surgery type: Hernia repair. Hysterectomy; Patient HX: Severe left hip pain. Concern for left acetabular/superior ramus fracrure on plain films. Mri of pelvis performed on 05/27/2023. ; Additional info: Hip pain, concern for fracture of the left hip and also acet TECHNIQUE: Imaging protocol: Computed tomography of the pelvis without contrast. Exam focused on the skeleton. Radiation optimization: All CT scans at this facility use at least one of these dose optimization techniques: automated exposure control; mA and/or kV adjustment per patient size (includes targeted exams where dose is matched to clinical indication); or iterative reconstruction. COMPARISON: MR pelvis wo con* [id number] 05/27/2023 3:51 PM RADIATION DOSE METRICS: Total DLP (mGy-cm): 1921.54 FINDINGS: Bones/joints: Severe osteoarthritis of the left hip with subchondral cystic changes and marginal osteophytes. There is a 9 mm intra-articular body in the medial joint recess. Small joint effusion. There is linear signal abnormality noted on prior MRI of the pelvis from 05/27/2023 raising the question of a nondisplaced insufficiency fracture (images 20-21 of series 601 and 501). Consider dedicated MRI of the left hip for further detail. Severe osteoarthritis of the right hip as well with subchondral cystic change and marginal osteophytes. Sacrum and coccyx are intact. Moderate-severe spondylosis of the lower lumbar spine. Soft tissues: Pelvic musculature is grossly intact. No fluid collection or hematoma. Status post hysterectomy. CT/CT pelvis wo con [id number] IMPRESSION: 1. Severe osteoarthritis of the left hip without CT evidence of fracture or subluxation. There is an intra-articular body and small joint effusion. 2. MRI findings suspicious for nondisplaced insufficiency fracture of the anterior column of the acetabulum/superior pubic ramus on the left. Consider dedicated MRI of the left hip.
[2023-06-05] MEDS: sodium chloride 0.9% 1,000 ML 999 ML IV (20:16)
[2023-06-05] MEDS: diphenhydrAMINE 50 mg/mL SDV 1mL 25 MG IVP (20:36)
[2023-06-05 20:39] VITALS: BP 109/79; PULSE 112; RESP 16; O2SAT 90
[2023-06-05 20:49] VITALS: BP 109/79; PULSE 112; RESP 16; TEMP 36.8; O2SAT 90
== END 2023-06-05 20:50 | disposition home or self-care (01) ==
PROVIDERS: Emergency Provider Emergency Medicine; PCP Family Medicine
DX: M87.852 Other osteonecrosis, left femur (principal); G89.4 Chronic pain syndrome; Z79.82 Long term (current) use of aspirin; Z79.4 Long term (current) use of insulin; Z79.84 Long term (current) use of oral hypoglycemic drugs; F17.210 Nicotine dependence, cigarettes, uncomplicated; Z86.73 Personal history of transient ischemic attack (TIA), and cerebral infarction without residual deficits; I10 Essential (primary) hypertension
CPT/HCPCS: 36416; 72192; 73502; 82962; 96361; 96374; 96375; 96376; 99285; J1171; J1200; J2360; J2405; J7030

== ENCOUNTER → 2023-07-21 13:46 | Outpatient (BNVA) | payer MEDICAID, SELFPAY | PROVIDERS: PCP Family Medicine; Referring Provider Family Medicine; Visit Provider Student in an Organized Health Care Education/Training Program | DX: M16.12 Unilateral primary osteoarthritis, left hip | CPT/HCPCS: 99204 ==

== ENCOUNTER → 2023-07-29 11:09 | Outpatient (BNVA) | payer MEDICAID, SELFPAY | PROVIDERS: PCP Family Medicine; Visit Provider Family Medicine | DX: G57.93 Unspecified mononeuropathy of bilateral lower limbs (principal); E11.69 Type 2 diabetes mellitus with other specified complication; M25.559 Pain in unspecified hip; G89.29 Other chronic pain; J43.2 Centrilobular emphysema; Z86.59 Personal history of other mental and behavioral disorders; F51.01 Primary insomnia; F32.1 Major depressive disorder, single episode, moderate; G47.33 Obstructive sleep apnea (adult) (pediatric); F17.200 Nicotine dependence, unspecified, uncomplicated; Z68.42 Body mass index [BMI] 45.0-49.9, adult; R10.31 Right lower quadrant pain | CPT/HCPCS: 80053; 83036 ==

== ENCOUNTER → 2023-09-22 11:34 | Outpatient (BNVA) | payer MEDICAID, SELFPAY | PROVIDERS: PCP Family Medicine; Visit Provider Family Medicine | DX: R39.9 Unspecified symptoms and signs involving the genitourinary system (principal) | CPT/HCPCS: 81000 ==

== ENCOUNTER 2023-09-29 12:51 | Emergency (ER) | payer MEDICAID, SELFPAY ==
[2023-09-29 12:53] VITALS: BP 105/73; PULSE 91; TEMP 36.8; O2SAT 94
--- NOTE | 2023-09-29 13:12 | CT_ITS ---
WS: [id number] CT ABDOMEN PELVIS TECHNIQUE: Contrast-enhanced CT of the abdomen and pelvis with coronal and sagittal reformatted image s. CLINICAL INFORMATION: abd pain COMPARISON: CT 2022 DLP: 1388.[address] scans at [facility] use at least one of these dose optimization techniques: automated e xposure control; mA and/or kV adjustment per patient size (includes targeted exams where dose is matc hed to clinical indication); or iterative reconstruction. FINDINGS: Prior cholecystectomy. Prior hysterectomy. Diffuse fatty infiltration of the liver. Hepatomegaly. Sma ll esophageal hiatal hernia. Normal portal vein and splenic vein. Normal pancreatic parenchymal enhan cement. No hydronephrosis in either kidney. LEFT renal cyst measuring 5.4 cm. Tiny LEFT renal cortica l cyst. Stable RIGHT greater than LEFT adrenal adenomas. Normal caliber abdominal aorta. Celiac and S MA are patent. A few sigmoid diverticuli. No evidence of acute diverticulitis. Normal appendix. Tiny fat-containing umbilical hernia. Disc space narrowing lower lumbar spine. Moderate to advanced degenerative arthriti s both hips with subchondral cystic change. CT/CT abdomen pelvis w con* [id number] IMPRESSION: 1. No acute findings in the abdomen or pelvis. 2. Stable bilateral RIGHT greater than LEFT adrenal adenomas. 3. Hepatomegaly with diffuse fatty infiltration of the liver. 4. Prior cholecystectomy 5. Prior hysterectomy. 6. Stable 5.4 cm LEFT renal cyst
--- NOTE | 2023-09-29 13:13 | W.ED.ABDPA2 ---
HPI - Abdominal Pain General: Chief Complaint: Abdominal Pain Stated Complaint: kidney stone Time Seen by Provider: 09/29/23 12:59 Source: patient and EMS Mode of arrival: EMS Limitations: no limitations History of Present Illness: 57-year-old female states she has been having right flank pain she is also been having some left lower abdominal pain that has been going on for 2 days states pains been very sharp in nature she had a history of kidney stones states she also having pain in her hip that could be causing her pain she is post to have a hip replacement. She denies any fevers had some nausea denies any vomiting Associated Symptoms: Reports nausea; Denies chills, diarrhea, dysuria, fever(s) and vomiting Related Data Previous Rx's Medication Instructions Recorded manual wheelchair #1 ea 10/03/19 TENS unit and equipment #1 ea 10/01/22 wheelchair #1 ea 10/14/22 CPAP 6-16cm setting #1 ea 11/23/22 CPAP mask, tubing, supplies #1 ea 11/23/22 Left wrist brace #1 ea 12/06/22 lancets #100 ea 01/24/23 lancets #200 ea 02/21/23 motorized electric scooter #1 ea 02/21/23 blood sugar diagnostic (Blood #200 ea 03/04/23 Glucose Test strips) alcohol swabs 1 pad topical DIRECTED #200 ea 03/16/23 blood sugar diagnostic (Blood #200 ea 03/16/23 Glucose Test strips) lancets #200 ea 03/16/23 naloxone 4 mg/actuation nasal 4 mg intranasal Q2M PRN opioid 03/16/23 spray (Narcan) overdose #2 ea pen needle, diabetic 30 gauge x #100 ea 03/17/23 5/16 (Pen Needle) lorazepam 0.5 mg tablet (Ativan) 0.5 mg PO ONCE anxiety #1 tab 04/04/23 hydrocodone 5 mg-acetaminophen 325 2 tab PO BID PRN pain 30 days #120 05/30/23 mg tablet tabs morphine 30 mg tablet,extended 30 mg PO Q12H pain 30 days #60 tabs 06/01/23 release (MS Contin) blood-glucose meter,continuous #1 ea 07/29/23 (Dexcom G7 Hydraulic Oil Tool Operator) blood-glucose sensor (Dexcom G7 #2 ea 07/29/23 Sensor device) dexcom G7 transmitter #1 ea 07/29/23 albuterol sulfate 90 mcg/actuation 2 puff inhalation Q6H PRN 08/17/23 aerosol inhaler shortness of breath or wheezing #8.5 grams alcohol swabs 1 pad topical DIRECTED #200 ea 08/17/23 aspirin 81 mg chewable tablet 81 mg PO QAM #60 tabs 08/17/23 atorvastatin 40 mg tablet (Lipitor) 40 mg PO BEDTIME #90 tabs 08/17/23 duloxetine 30 mg capsule,delayed 30 mg PO DAILY #30 caps 08/17/23 release escitalopram oxalate 20 mg tablet 20 mg PO QAM #90 tabs 08/17/23 (Lexapro) famotidine 20 mg tablet See Rx Instructions .Route 08/17/23 .COMPLEX #60 tabs fluticasone 250 mcg-salmeterol 50 See Rx Instructions .Route 08/17/23 mcg/dose blistr powdr for .COMPLEX #60 ea inhalation (Advair Diskus) gabapentin 600 mg tablet See Rx Instructions .Route 08/17/23 .COMPLEX #90 tabs glipizide 10 mg tablet See Rx Instructions .Route 08/17/23 .COMPLEX #90 tabs insulin glargine 100 unit/mL (3 10 unit (0.1 mL) SUBCUT QAM #15 mL 08/17/23 mL) subcutaneous pen (Lantus Solostar U-100 Insulin) ipratropium 0.5 mg-albuterol 3 mg 3 ml inhalation Q6H PRN shortness 08/17/23 (2.5 mg base)/3 mL nebulization of breath or wheezing #180 mL soln meloxicam 15 mg tablet 15 mg PO QAM #60 tabs 08/17/23 metformin 500 mg tablet 1,000 mg (2 x 500 mg) PO BID #60 08/17/23 tabs quetiapine 150 mg tablet 150 mg PO BEDTIME #30 tabs 08/17/23 tiotropium bromide 18 mcg capsule 1 cap inhalation DAILY #60 08/17/23 with inhalation device (Spiriva inhalations with HandiHaler) hydrocodone 5 mg-acetaminophen 325 1 tab PO Q6H PRN pain 5 days #20 08/22/23 mg tablet tabs baclofen 15 mg tablet 15 mg PO BID #60 tabs 08/30/23 promethazine 25 mg tablet See Rx Instructions .Route 09/21/23 .COMPLEX #30 tabs hydrocodone 5 mg-acetaminophen 325 1 tab PO Q6H PRN pain #14 tabs 09/29/23 mg tablet Allergies Allergy/AdvReac Type Severity Reaction Status Date / Time ketorolac [From Toradol] Allergy Severe ALGY-Anaphy Verified 09/29/23 13:03 laxis Penicillins Allergy Severe ALGY-Anaphy Verified 09/29/23 13:03 laxis Sulfa (Sulfonamide Allergy Severe ALGY-Anaphy Verified 09/29/23 13:03 Antibiotics) laxis tetracycline Allergy Severe ALGY-Anaphy Verified 09/29/23 13:03 laxis lidocaine Allergy ALGY-Hives Verified 09/29/23 13:03 tramadol [From Ultram] Allergy ALGY-Difficulty Verified 09/29/23 13:03 Breathing Review of Systems Const: Denies: fever(s), chills, body aches or change in appetite ENMT: Denies: throat pain or dental pain Card: Denies: chest pain Resp: Denies: dyspnea GI: Reports: abdominal pain and nausea; Denies: vomiting or diarrhea : Denies: dysuria Musc: Denies: neck pain or back pain Skin/Breast: Denies: rash Neuro: Denies: headache(s) PFSH ED PFSH: Medical History Pulmonary nodules Rheumatoid arthritis History of stroke Chronic cystitis delivery delivered Constipation Hematochezia Insomnia Community acquired pneumonia History of bipolar disorder History of hypertension Surgical History History of incisional hernia repair History of hysterectomy History of cholecystectomy History of tonsillectomy History of knee surgery Family History Mother , at age 78 COVID-19 Brother , at age 58 Cancer Colon Father , at age 45 Car occupant injured in traffic accident Cancer Colon Family/Other Cancer Paternal-lung Other Chronic kidney disease (CKD) Dementia Diabetes Hyperlipidemia Hypertension Lung disease Stroke Denies family history of CAD (coronary artery disease) Clotting disorder Psychiatric illness Anesthesia complication Bleeding disorder Social History Smoking and tobacco/nicotine status: current every day tobacco/nicotine user cigarettes Packs smoked per day: 0.5 Years cigarettes smoked: 30 [ Other cigarette details: Currently smoking 6-7/day] Quit status (tobacco/nicotine): considering quitting Alcohol intake: never Substance/Drug Use: former Adopted: No Lives independently: Yes Household members: spouse Marital status: Number of grandchildren: 2 Current occupational status: disabled Special sherine needs: No Agree to transfusion: Yes Female Reproductive History: Spontaneous abortions: No Physical Exam Const: COMMON NORMALS: no acute distress, patient oriented x3 and healthy appearing HENMT: COMMON NORMALS: normocephalic and atraumatic HEAD & SCALP: normocephalic and atraumatic Neck/C-Spine: COMMON NORMALS: full ROM and supple Chest: COMMONS NORMALS: normal inspection of the chest Resp: COMMON NORMALS: normal respiratory effort Cardio: COMMON NORMALS: regular rate, regular rhythm and No murmurs present (Cardio) RATE: regular rate RHYTHM: regular rhythm GI: COMMON NORMALS: Normal to inspection, nondistended, normoactive bowel sounds present, Soft to palpation and no masses PALPATION: Yes Soft to palpation and Yes Tenderness to palpation present (GI) Details: LLQ Extremity: COMMON NORMALS: normal to inspection and full ROM Neuro: COMMON NORMALS: patient oriented x3, moves all extremities and no focal motor deficits Psych: COMMON NORMALS: mental status grossly normal, Normal thought process present and cooperative THOUGHT PROCESS: Normal thought process present Skin: COMMON NORMALS: no rashes or lesions noted and no wounds GENERAL SKIN EXAM: no rashes or lesions noted Course Vital Signs: Vital signs: Vital Signs Temperature 98.3 F 09/29/23 12:53 Pulse Rate 104 H 09/29/23 16:00 Respiratory Rate 19 H 09/29/23 15:31 Blood Pressure 114/74 09/29/23 16:00 Pulse Oximetry 91 09/29/23 16:00 Oxygen Delivery Me thod Room Air 09/29/23 15:30 MDM - Abdominal Pain Medical Decision Making Patient presents here with abdominal pain imaging blood work here is normal no signs of acute surgical abdomen her pain has improved here we will place her on pain meds we will get her follow-up she is to return if worsening she understands agrees to plan Medical Records I reviewed the patient's medical records. Lab Data I reviewed the patient's lab results. 09/29/23 13:14 09/29/23 13:14 Labs/Radiology: Radiology Impressions Abdomen/Pelvis CT 09/29/23 13:12 IMPRESSION: 1. No acute findings in the abdomen or pelvis. 2. Stable bilateral RIGHT greater than LEFT adrenal adenomas. 3. Hepatomegaly with diffuse fatty infiltration of the liver. 4. Prior cholecystectomy 5. Prior hysterectomy. 6. Stable 5.4 cm LEFT renal cyst Laboratory Results WBC 13.62 10^3/uL (3.29-11.43) H 09/29/23 13:14 RBC 4.49 10^6/uL (3.85-5.65) 09/29/23 13:14 Hgb 13.30 g/dL (11.27-16.99) 09/29/23 13:14 Hct 42.1 % (36-47) 09/29/23 13:14 MCV 93.8 fl (85-98) 09/29/23 13:14 MCH 29.6 pg (27-33) 09/29/23 13:14 MCHC 31.6 g/dL (30-55) 09/29/23 13:14 RDW 14.2 % (12.1-15.1) 09/29/23 13:14 Plt Count 202 10^3/cmm (157-399) 09/29/23 13:14 MPV 10.3 fL (7.4-10.4) 09/29/23 13:14 Neut % (Auto) 58.2 % 09/29/23 13:14 Lymph % (Auto) 32.3 % 09/29/23 13:14 [place] % (Auto) 7.3 % 09/29/23 13:14 Eos % (Auto) 1.4 % 09/29/23 13:14 Baso % (Auto) 0.4 % 09/29/23 13:14 Neut # (Auto) 7.92 10^3/uL (1.8-7.7) H 09/29/23 13:14 Lymph # (Auto) 4.4 10^3/uL (0.8-4.8) 09/29/23 13:14 [place] # (Auto) 1.0 10^3/uL (0.2-0.9) H 09/29/23 13:14 Eos # (Auto) 0.2 10^3/uL (0.0-0.8) 09/29/23 13:14 Baso # (Auto) 0.1 10^3/uL (0.0-0.1) 09/29/23 13:14 Nucleated RBC % (auto) 0 % 09/29/23 13:14 Nucleated RBCs # 0.0 /100WBC 09/29/23 13:14 Sodium 138 mmol/L (136-145) 09/29/23 13:14 Potassium 4.3 mmol/L (3.5-5.1) 09/29/23 13:14 Chloride 101 mmol/L (98-107) 09/29/23 13:14 Carbon Dioxide 23 mmol/L (22-29) 09/29/23 13:14 Anion Gap 18.3 (5-19) 09/29/23 13:14 BUN 12 mg/dL (6-20) 09/29/23 13:14 Creatinine 0.5 mg/dL (0.5-0.9) 09/29/23 13:14 GFR Calculation 126.7 mL/min (90-130) 09/29/23 13:14 Glucose 137 mg/dL (65-115) H 09/29/23 13:14 Calculated Osmolality 288 mOsm/kg (285-295) 09/29/23 13:14 Calcium 9.6 mg/dL (8.5-10.5) 09/29/23 13:14 Total Bilirubin 0.3 mg/dL (0.15-1.2) 09/29/23 13:14 AST 43 U/L (0-32) H 09/29/23 13:14 ALT 13 U/L (0-33) 09/29/23 13:14 Alkaline Phosphatase 75 U/L (35-105) 09/29/23 13:14 Total Protein 7.4 g/dL (6.6-8.7) 09/29/23 13:14 Albumin 4.0 g/dL (3.5-5.2) 09/29/23 13:14 Globulin 3.4 g/dL (1.3-4.6) 09/29/23 13:14 Lipase 26 U/L (13-60) 09/29/23 13:14 Urine Color Yellow (Yellow) 09/29/23 14:33 Urine Appearance Clear (CLEAR) 09/29/23 14:33 Urine pH 5.0 (5-7) 09/29/23 14:33 Ur Specific [place] 1.031 (1.005-1.030) H 09/29/23 14:33 Urine Protein Trace (Negative) A 09/29/23 14:33 Urine Glucose (UA) Negative (Normal) 09/29/23 14:33 Urine Ketones Negative (Negative) 09/29/23 14:33 Urine Blood Negative (Negative) 09/29/23 14:33 Urine Nitrate Negative (Negative) 09/29/23 14:33 Urine Bilirubin Negative (Negative) 09/29/23 14:33 Urine Urobilinogen 1.0 mg/dL (Negative) 09/29/23 14:33 Ur Leukocyte Esterase Negative (Negative) 09/29/23 14:33 Urine RBC 0-2 /hpf (0-2) 09/29/23 14:33 Urine WBC 0-5 /hpf (0-5) 09/29/23 14:33 Ur Squamous Epith Cells 0-5 /hpf (0-5) 09/29/23 14:33 Amorphous Sediment Not Reportable 09/29/23 14:33 Urine Bacteria None seen /hpf (NONE) 09/29/23 14:33 Hyaline Casts 0.40 /lpf 09/29/23 14:33 All radiology interpretation(s) finalized by discharge Discharge Plan Discharge Patient Disposition: Home Clinical Impression: Abdominal pain Condition: Stable Prescriptions: New hydrocodone-acetaminophen 5-325 mg tablet 1 tab PO Q6H PRN (Reason: pain) Qty: 14 0RF No Action (DME) manual wheelchair See Rx Instructions .Route .MEDSUPPLY Qty: 1 0RF Rx Instructions: As directed (DME) TENS unit and equipment See Rx Instructions .Route .MEDSUPPLY Qty: 1 0RF Rx Instructions: As directed (DME) Left wrist brace See Rx Instructions .Route .MEDSUPPLY Qty: 1 0RF Rx Instructions: As directed (DME) lancets Misc See Rx Instructions .Route Qty: 100 0RF Rx Instructions: As directed (DME) lancets Misc See Rx Instructions .MEDSUPPLY Qty: 200 12RF Rx Instructions: Use as directed to prick skin for blood sugar checks (DME) motorized electric scooter See Rx Instructions .Route .MEDSUPPLY Qty: 1 0RF Rx Instructions: As directed (DME) Blood Glucose Test Strip See Rx Instructions .MEDSUPPLY Qty: 200 12RF Rx Instructions: Use as directed with glucometer to check blood sugar (DME) lancets Misc See Rx Instructions .MEDSUPPLY Qty: 200 12RF Rx Instructions: Use as directed to prick skin for blood sugar checks alcohol swabs Pads, Medicated 1 pad topical DIRECTED Qty: 200 12RF Rx Instructions: Use as directed to clean skin prior to finger stick or medication injection naloxone [Narcan] 4 mg/actuation spray,non-aerosol 4 mg intranasal Q2M PRN (Reason: opioid overdose) Qty: 2 0RF Rx Instructions: spray 1 dose into ONE nostril; alternate nostrils w each dose (DME) Dexcom G7 Sensor Device See Rx Instructions .Route Qty: 2 3RF Rx Instructions: As directed (DME) Dexcom G7 Hydraulic Oil Tool Operator Misc See Rx Instructions .Route Qty: 1 3RF Rx Instructions: As directed (DME) dexcom G7 transmitter See Rx Instructions .Route .MEDSUPPLY Qty: 1 2RF Rx Instructions: As directed (DME) wheelchair See Rx Instructions .Route .MEDSUPPLY Qty: 1 0RF Rx Instructions: As directed (DME) CPAP 6-16cm setting See Rx Instructions .ROUTE .MEDSUPPLY Qty: 1 0RF Rx Instructions: As directed (DME) CPAP mask, tubing, supplies See Rx Instructions .ROUTE .MEDSUPPLY Qty: 1 1RF Rx Instructions: As directed (DME) Blood Glucose Test Strip See Rx Instructions .MEDSUPPLY Qty: 200 12RF Rx Instructions: Use as directed with glucometer to check blood sugar (DME) pen needle, diabetic [Pen Needle] 30 gauge x 5/16 needle See Rx Instructions .MEDSUPPLY Qty: 100 12RF Rx Instructions: Use as directed for insulin administration lorazepam [Ativan] 0.5 mg tablet 0.5 mg PO ONCE Qty: 1 0RF Rx Instructions: take [address] scan hydrocodone-acetaminophen 5-325 mg tablet 2 tab PO BID PRN (Reason: pain) 30 Days Qty: 120 0RF Rx Instructions: do not refill until refill date morphine [MS Contin] 30 mg tablet extended release 30 mg PO Q12H 30 Days Qty: 60 0RF Rx Instructions: do not fill before fill date albuterol sulfate 90 mcg/actuation HFA aerosol inhaler 2 puff inhalation Q6H PRN (Reason: shortness of breath or wheezing) Qty: 8.5 3RF alcohol swabs Pads, Medicated 1 pad topical DIRECTED Qty: 200 12RF Rx Instructions: Use as directed to clean skin prior to finger stick or medication injection aspirin 81 mg tablet,chewable 81 mg PO QAM Qty: 60 0RF Lipitor 40 mg tablet 40 mg PO BEDTIME Qty: 90 1RF duloxetine 30 mg capsule,delayed release(DR/EC) 30 mg PO DAILY Qty: 30 0RF escitalopram oxalate [Lexapro] 20 mg tablet 20 mg PO QAM Qty: 90 1RF famotidine 20 mg tablet See Rx Instructions .ROUTE .COMPLEX Qty: 60 1RF Dose Instruction: TAKE 1 TABLET BY MOUTH TWICE A DAY Rx Instructions: TAKE 1 TABLET BY MOUTH TWICE A DAY fluticasone propion-salmeterol [Advair Diskus] 250-50 mcg/dose blister with device See Rx Instructions .ROUTE .COMPLEX Qty: 60 3RF Dose Instruction: TAKE 1 PUFF BY MOUTH TWICE A DAY Rx Instructions: TAKE 1 PUFF BY MOUTH TWICE A DAY gabapentin 600 mg tablet See Rx Instructions .ROUTE .COMPLEX Qty: 90 0RF Dose Instruction: TAKE 1 TABLET BY MOUTH THREE TIMES DAILY Rx Instructions: TAKE 1 TABLET BY MOUTH THREE TIMES DAILY glipizide 10 mg tablet See Rx Instructions .ROUTE .COMPLEX Qty: 90 0RF Dose Instruction: TAKE 1 TABLET BY MOUTH EVERY DAY Rx Instructions: TAKE 1 TABLET BY MOUTH EVERY DAY insulin glargine [Lantus Solostar U-100 Insulin] 100 unit/mL (3 mL) insulin pen 10 unit SUBCUT QAM Qty: 15 2RF ipratropium-albuterol 0.5 mg-3 mg(2.5 mg base)/3 mL solution for nebulization 3 ml inhalation Q6H PRN (Reason: shortness of breath or wheezing) Qty: 180 5RF meloxicam 15 mg tablet 15 mg PO QAM Qty: 60 0RF metformin 500 mg tablet 1,000 mg PO BID Qty: 60 0RF quetiapine 150 mg tablet 150 mg PO BEDTIME Qty: 30 1RF Rx Instructions: BRAND ONLY tiotropium bromide [Spiriva with HandiHaler] 18 mcg capsule, w/inhalation device 1 cap inhalation DAILY Qty: 60 6RF Rx Instructions: puncture 1 cap using device; one dose = 2 inhalations hydrocodone-acetaminophen 5-325 mg tablet 1 tab PO Q6H PRN (Reason: pain) 5 Days Qty: 20 0RF baclofen 15 mg tablet 15 mg PO BID Qty: 60 2RF promethazine 25 mg tablet See Rx Instructions .ROUTE .COMPLEX Qty: 30 0RF Dose Instruction: TAKE 1 TABLET BY MOUTH THREE TIMES DAILY NEEDED FOR NAUSEA AND VOMITING Rx Instructions: TAKE 1 TABLET BY MOUTH THREE TIMES DAILY NEEDED FOR NAUSEA AND VOMITING Discharge Orders: Discharge ED (Routine); Ordered 09/29/23 Ordered By: Karen Oviedo Referrals: Robbie Burrell MD [Primary Care Provider] - 4-7 days Discharge Diet: Advance as tolerated Discharge Activity: Resume usual activity Patient Instructions: Abdominal Pain (ED), Opioid Safety Coding Level of Care Code ED [employer] for Abdirahman [facility]
[2023-09-29 13:18] LABS: Basophils # 0.1 10^3/uL (0.0-0.1); Basophils % 0.4 %; Eosinophils # 0.2 10^3/uL (0.0-0.8); Eosinophils % 1.4 %; Hematocrit 42.1 % (36-47); Lymphocytes # 4.4 10^3/uL (0.8-4.8); Lymphocytes % 32.3 %; Mean Corpuscular HGB Conc 31.6 g/dL (30-55); Mean Corpuscular Hemoglobin 29.6 pg (27-33); Mean Corpuscular Volume 93.8 fl (85-98); Mean Platelet Volume 10.3 fL (7.4-10.4); Monocytes % 7.3 %; Neutrophils # 7.92 10^3/uL (1.8-7.7); Neutrophils % 58.2 %; Nucleated Red Blood Cells % 0 %; Platelet Count 202 10^3/cmm (157-399); Red Blood Count 4.49 10^6/uL (3.85-5.65); Red Cell Distribution Width 14.2 % (12.1-15.1); White Blood Count 13.62 10^3/uL (3.29-11.43)
[2023-09-29] MEDS: sodium chloride 0.9% 1,000 ML 999 ML IV (13:34)
[2023-09-29 13:38] VITALS: RESP 22
[2023-09-29 13:38] LABS: Alanine Aminotransferase 13 U/L (0-33); Alkaline Phosphatase 75 U/L (35-105); Anion Gap 18.3 (5-19); Aspartate Amino Transferase 43 U/L (0-32); Blood Urea Nitrogen 12 mg/dL (6-20); Calcium 9.6 mg/dL (8.5-10.5); Carbon Dioxide 23 mmol/L (22-29); Chloride 101 mmol/L (98-107); Creatinine Clr Calc Pharmacy 209.9743; Globulin 3.4 g/dL (1.3-4.6); Glomerular Filtration Rate 126.7 mL/min (90-130); Glucose 137 mg/dL (65-115); Lipase 26 U/L (13-60); Osmolality Calculated 288 mOsm/kg (285-295); Potassium 4.3 mmol/L (3.5-5.1); Sodium 138 mmol/L (136-145); Total Bilirubin 0.3 mg/dL (0.15-1.2); Total Protein 7.4 g/dL (6.6-8.7)
[2023-09-29] MEDS: HYDROmorphone 1 mg/mL INJ 1 mL IVP (13:38)
[2023-09-29] MEDS: ondansetron 2 mg/ML SDV 2 mL 4 MG IVP (13:39)
[2023-09-29] MEDS: iohexol 350 mg/mL 500 mL Btl (per mL) IV (13:47)
[2023-09-29 14:38] LABS: Charge for UA Resulting for Rev
[2023-09-29 14:41] LABS: Bilirubin Urine Negative (Negative); Blood Urine Negative (Negative); Glucose Urine UA Negative (Normal); Ketones Urine Negative (Negative); Leukocyte Esterase Urine Negative (Negative); Nitrate Urine Negative (Negative); Protein Urine Trace (Negative); Urine Appearance Clear (CLEAR); Urine Color Yellow (Yellow)
[2023-09-29 14:44] LABS: Bacteria Urine None Seen /hpf; RBC Urine 0-2 /hpf (0-2); Squamous Epithelial Cell Urine 0-5 /hpf (0-5); WBC Urine 0-5 /hpf (0-5)
[2023-09-29] MEDS: HYDROcodone-acetaminophen 7.5-325 mg Tablet 1 TAB PO (14:46)
[2023-09-29 14:54] LABS: Specific Gravity, Urine 1.031 (1.005-1.030)
[2023-09-29 15:30] VITALS: BP 107/72; PULSE 89; O2SAT 93
[2023-09-29 15:31] VITALS: RESP 19
[2023-09-29] MEDS: promethazine 25 mg/mL SDV 1 mL IM (15:31)
[2023-09-29] MEDS: HYDROmorphone 1 mg/mL INJ 1 mL 0.5 MG IVP (15:31)
[2023-09-29 16:00] VITALS: BP 114/74; PULSE 104; O2SAT 91
== END 2023-09-29 16:11 | disposition home or self-care (01) ==
PROVIDERS: Emergency Provider Emergency Medicine; PCP Family Medicine
DX: R10.32 Left lower quadrant pain (principal); Z79.82 Long term (current) use of aspirin; Z79.4 Long term (current) use of insulin; Z79.84 Long term (current) use of oral hypoglycemic drugs; F17.210 Nicotine dependence, cigarettes, uncomplicated; Z86.73 Personal history of transient ischemic attack (TIA), and cerebral infarction without residual deficits; I10 Essential (primary) hypertension
CPT/HCPCS: 74177; 80053; 81003; 81015; 83690; 85025; 96372; 96374; 96375; 96376; 99285; J1170; J2405; J2550; J7030; Q9967

== ENCOUNTER 2023-09-30 11:00 | Outpatient (CLI) | payer MEDICAID, SELFPAY ==
--- NOTE | 2023-09-30 11:00 | MR_ITS ---
WS: [id number] MRI LEFT HIP WITHOUT CONTRAST. COMPARISON: 05/27/2023, CT 09/29/2023 Multiplanar, multisequence imaging is performed without contrast. Quality this examination is compromised by body habitus. Moderate narrowing of the LEFT hip joint. There is near bone upon bone. Loss of the normal cartilage covering the femoral head and the acetabulum. There is marrow edema in the femoral head and the aceta bulum. No obvious progression since the prior study from 05/27/2023. There is probably less edema in t he femoral head. No joint effusion. Subchondral cyst in the superior RIGHT femoral head extends to the articular surface. Cyst is slightl y increased in size since the prior study now measuring 10 x 11 mm. There is no joint effusion. No si gnificant marrow edema otherwise in the femoral head. No labral tears are identified but the labrum is poorly visualized. No joint effusions. No soft tissu e abnormalities. MR/MR hip LT wo con* [id number] IMPRESSION: 1. Quality of this examination is compromised by body habitus. 2. Advanced degenerative joint disease involving the LEFT hip with bone upon b one. There is marrow edema in the femoral head and the adjacent acetabulum. The extent of edema in the femoral head has improved since 05/27/2023. Osteonecrosi s is probably present also. With the edema on both sides of the joint space fav or the marrow edema is probably related to degenerative arthropathy. 3. Slight increase in size of the subchondral cyst RIGHT femoral head. 4. No joint effusions.
== END 2023-09-30 11:27 | disposition home or self-care (01) ==
PROVIDERS: PCP Family Medicine; Visit Provider Student in an Organized Health Care Education/Training Program
DX: M87.052 Idiopathic aseptic necrosis of left femur (principal); M16.12 Unilateral primary osteoarthritis, left hip; M85.651 Other cyst of bone, right thigh
CPT/HCPCS: 73721

== ENCOUNTER 2023-10-31 17:34 | Inpatient (IN) | payer MEDICAID, SELFPAY ==
[2023-10-31] VITALS (10 sets, daily range): BP systolic 112–128; BP diastolic 47–91; PULSE 68–97; RESP 16–20; TEMP 37.2; O2SAT 91–95; BMI 47.5; BMI 49.5
--- NOTE | 2023-10-31 17:40 | ECG_ITS ---
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 Measurements Intervals [place] Rate: 92 P: 64 ID: [id number] QRS: 36 QRSD: 94 T: 101 QT: 382 QTc: 473 Interpretive Statements SINUS RHYTHM WITH OCCASIONAL SUPRAVENTRICULAR PREMATURE COMPLEXES POSSIBLE RIGHT VENTRICULAR CONDUCTION DELAY [RSR (QR) IN V1/V2] SEPTAL MYOCARDIAL INFARCTION , PROBABLY OLD [40+ ms Q WAVE IN V1/V2] Compared to ECG 01/02/2023 14:09:26 Myocardial infarct finding now present Ventricular premature complex(es) no longer present Electronically Signed On 11-01-2023 7:59:12 CDT by Jesse Linda M.D. [email or web address]
--- NOTE | 2023-10-31 17:44 | XRR_ITS ---
PROCEDURE INFORMATION: Exam: XR Chest Exam date and time: 10/31/2023 5:51 PM Age: 57 years old Clinical indication: Shortness of breath; Additional info: Sob/diffuse wheezing on exam TECHNIQUE: Imaging protocol: Radiologic exam of the chest. Views: 1 view. COMPARISON: CT chest [facility] [id number] 04/05/2023 9:45 AM FINDINGS: Lungs: Both lungs demonstrate diffuse interstitial coarsening which is felt to be chronic. No lung mass or infiltrate. Pleural spaces: Unremarkable. No pleural effusion. No pneumothorax. Heart/Mediastinum: Unremarkable. No cardiomegaly. Bones/joints: Unremarkable. XR/XR chest 1V portable [id number] IMPRESSION: No acute findings.
--- NOTE | 2023-10-31 17:53 | ED_ITS ---
HPI - SOB/Dyspnea 2 General: Chief Complaint: Shortness of Breath/Dyspnea Stated Complaint: sob Time Seen by Provider: 10/31/23 17:39 Source: patient Mode of arrival: EMS Limitations: no limitations History of Present Illness: HPI Narrative: Patient is a 57-year-old female presenting to the emergency department by ambulance due to shortness of breath of the past week. Patient has history of COPD, uses 4 L of oxygen at home as needed, also has inhaler and uses nebulized breathing treatments. She has not gotten relief from any of these remedies at home, states that she was exposed to sick grandson who had viral flu a week ago. Also states she has had a cough this entire time, and initially it was productive and streaked with blood, however has been dry the past few days. She is noting some left rib pain from coughing, also notes she is not able to keep down meds from the coughing. She is denying any chest pain, abdominal pain, or any other symptoms. However she does note that she is set to have her left hip replaced, and this has also been aggravated. MD elicited complaint: shortness of breath Pertinent past history: COPD Onset (ago): week(s) Context: other (Sick contact exposure) Timing: constant and progressively worsening Severity: severe Relieving factors: nothing Known history of: COPD Associated symptoms: Deny abdominal pain, chest pain, fever(s), lightheadedness, nausea, palpitations or vomiting Treatment prior to arrival: oxygen and bronchodilator Related Data Previous Rx's Medication Instructions Recorded manual wheelchair #1 ea 10/03/19 TENS unit and equipment #1 ea 10/01/22 wheelchair #1 ea 10/14/22 CPAP 6-16cm setting #1 ea 11/23/22 CPAP mask, tubing, supplies #1 ea 11/23/22 Left wrist brace #1 ea 12/06/22 lancets #100 ea 01/24/23 lancets #200 ea 02/21/23 motorized electric scooter #1 ea 02/21/23 blood sugar diagnostic (Blood #200 ea 03/04/23 Glucose Test strips) alcohol swabs 1 pad topical DIRECTED #200 ea 03/16/23 blood sugar diagnostic (Blood #200 ea 03/16/23 Glucose Test strips) lancets #200 ea 03/16/23 naloxone 4 mg/actuation nasal 4 mg intranasal Q2M PRN opioid 03/16/23 spray (Narcan) overdose #2 ea pen needle, diabetic 30 gauge x #100 ea 03/17/23 5/16 (Pen Needle) lorazepam 0.5 mg tablet (Ativan) 0.5 mg PO ONCE anxiety #1 tab 04/04/23 hydrocodone 5 mg-acetaminophen 325 2 tab PO BID PRN pain 30 days #120 05/30/23 mg tablet tabs morphine 30 mg tablet,extended 30 mg PO Q12H pain 30 days #60 tabs 06/01/23 release (MS Contin) blood-glucose meter,continuous #1 ea 07/29/23 (Dexcom G7 Java Designer) dexcom G7 transmitter #1 ea 07/29/23 albuterol sulfate 90 mcg/actuation 2 puff inhalation Q6H PRN 08/17/23 aerosol inhaler shortness of breath or wheezing #8.5 grams alcohol swabs 1 pad topical DIRECTED #200 ea 08/17/23 aspirin 81 mg chewable tablet 81 mg PO QAM #60 tabs 08/17/23 atorvastatin 40 mg tablet (Lipitor) 40 mg PO BEDTIME #90 tabs 08/17/23 escitalopram oxalate 20 mg tablet 20 mg PO QAM #90 tabs 08/17/23 (Lexapro) famotidine 20 mg tablet See Rx Instructions .Route 08/17/23 .COMPLEX #60 tabs fluticasone 250 mcg-salmeterol 50 See Rx Instructions .Route 08/17/23 mcg/dose blistr powdr for .COMPLEX #60 ea inhalation (Advair Diskus) glipizide 10 mg tablet See Rx Instructions .Route 08/17/23 .COMPLEX #90 tabs insulin glargine 100 unit/mL (3 10 unit (0.1 mL) SUBCUT QAM #15 mL 08/17/23 mL) subcutaneous pen (Lantus Solostar U-100 Insulin) ipratropium 0.5 mg-albuterol 3 mg 3 ml inhalation Q6H PRN shortness 08/17/23 (2.5 mg base)/3 mL nebulization of breath or wheezing #180 mL soln tiotropium bromide 18 mcg capsule 1 cap inhalation DAILY #60 08/17/23 with inhalation device (Spiriva inhalations with HandiHaler) hydrocodone 5 mg-acetaminophen 325 1 tab PO Q6H PRN pain 5 days #20 08/22/23 mg tablet tabs baclofen 15 mg tablet 15 mg PO BID #60 tabs 08/30/23 hydrocodone 5 mg-acetaminophen 325 1 tab PO Q6H PRN pain #14 tabs 09/29/23 mg tablet gabapentin 600 mg tablet See Rx Instructions .Route 10/18/23 .COMPLEX #90 tabs promethazine 25 mg tablet See Rx Instructions .Route 10/18/23 .COMPLEX #30 tabs Seroquel XR 150 mg tablet,extended See Rx Instructions .Route 10/25/23 release (quetiapine) .COMPLEX #30 tabs duloxetine 30 mg capsule,delayed See Rx Instructions .Route 10/25/23 release .COMPLEX #30 ea meloxicam 15 mg tablet See Rx Instructions .Route 10/25/23 .COMPLEX #60 tabs metformin 500 mg tablet 1,000 mg (2 x 500 mg) PO BID #180 10/28/23 tabs blood-glucose sensor (Dexcom G7 #2 ea 10/31/23 Sensor device) Allergies Allergy/AdvReac Type Severity Reaction Status Date / Time ketorolac [From Toradol] Allergy Severe ALGY-Anaphy Verified 10/31/23 17:46 laxis Penicillins Allergy Severe ALGY-Anaphy Verified 10/31/23 17:46 laxis Sulfa (Sulfonamide Allergy Severe ALGY-Anaphy Verified 10/31/23 17:46 Antibiotics) laxis tetracycline Allergy Severe ALGY-Anaphy Verified 10/31/23 17:46 laxis lidocaine Allergy ALGY-Hives Verified 10/31/23 17:46 tramadol [From Ultram] Allergy ALGY-Difficulty Verified 10/31/23 17:46 Breathing Review of Systems 2 General: Reports: 10 or more systems reviewed and unremarkable except in HPI and below Const: Denies: fever(s), chills or fatigue Eyes: Denies: change in vision ENMT: Denies: throat pain, ear or mastoid pain or nasal discharge Card: Denies: chest pain, palpitations, swelling of feet/ankles or lightheadedness Resp: Reports: dyspnea, non-productive cough (Initially was productive), wheezing and pain on inspiration GI: Denies: abdominal pain, nausea, vomiting, diarrhea or constipation : Denies: flank pain, difficulty voiding, dysuria or urinary frequency Musc: Reports: other (Left rib pain); Denies: neck pain, back pain or joint pain Skin/Breast: Denies: rash Neuro: Denies: headache(s), numbness in extremities or weakness in extremities PFSH ED 2 PFSH: Medical History Pulmonary nodules Rheumatoid arthritis History of stroke Chronic cystitis delivery delivered Constipation Hematochezia Insomnia Community acquired pneumonia History of bipolar disorder History of hypertension Surgical History History of incisional hernia repair History of hysterectomy History of cholecystectomy History of tonsillectomy History of knee surgery Family History Mother , at age 78 COVID-19 Brother , at age 58 Cancer Colon Father , at age 45 Car occupant injured in traffic accident Cancer Colon Family/Other Cancer Paternal-lung Other Chronic kidney disease (CKD) Dementia Diabetes Hyperlipidemia Hypertension Lung disease Stroke Denies family history of CAD (coronary artery disease) Clotting disorder Psychiatric illness Anesthesia complication Bleeding disorder Social History Smoking and tobacco/nicotine status: current every day tobacco/nicotine user cigarettes Packs smoked per day: 0.5 Years cigarettes smoked: 30 [ Other cigarette details: Currently smoking 6-7/day] Quit status (tobacco/nicotine): considering quitting Alcohol intake: never Substance/Drug Use: former Adopted: No Lives independently: Yes Household members: spouse Marital status: Number of grandchildren: 2 Current occupational status: disabled Special sherine needs: No Agree to transfusion: Yes Female Reproductive History: Spontaneous abortions: No Physical Exam 2 Const: COMMON NORMALS: patient oriented x3 and alert GENERAL APPEARANCE: in distress and anxious NUTRITIONAL APPEARANCE: obese morbidly obese OTHER: Patient very tearful and anxious on examination, lying on her right side HENMT: COMMON NORMALS: normocephalic, atraumatic, moist oral mucous membranes and oropharynx normal HEAD & SCALP: normocephalic and atraumatic Eye: COMMON NORMALS: Equal, round and reactive pupils present, EOMs intact bilaterally and conjunctivae normal CONJUNCTIVA: Yes conjunctivae normal P UPIL: Yes Equal, round and reactive pupils present Neck/C-Spine: COMMON NORMALS: full ROM and no meningeal signs Chest: COMMONS NORMALS: normal inspection of the chest OTHER: Reproducible moderate to severe tenderness to palpation of the left lateral chest wall Resp: COMMON NORMALS: No retractions EFFORT & INSPECTION: Yes tachypneic (Mild) AUSCULTATION: wheezes (Diffuse expiratory wheezing) Cardio: COMMON NORMALS: regular rate and regular rhythm RATE: regular rate RHYTHM: regular rhythm OTHER: Cardiac auscultation somewhat limited due to patient's body habitus and body position GI: COMMON NORMALS: Soft to palpation and non-tender INSPECTION: Yes central obesity (Large abdomen) PALPATION: Yes Soft to palpation Extremity: COMMON NORMALS: normal to inspection, full ROM and capillary refill normal NARRATIVE EXTREMITY EXAM: No appreciable lower extremity edema Neuro: COMMON NORMALS: patient oriented x3, moves all extremities, no focal motor deficits and no sensory deficits noted SENSORIUM/ORIENTATION: Yes alert MENINGEAL SIGNS: Yes no meningeal signs Psych: COMMON NORMALS: mental status grossly normal Skin: COMMON NORMALS: no rashes or lesions noted GENERAL SKIN EXAM: no rashes or lesions noted Course 2 Vital Signs: Vital signs: Vital Signs Temperature 99.0 F 10/31/23 17:36 Pulse Rate 68 10/31/23 23:13 Respiratory Rate 16 10/31/23 23:47 Blood Pressure 128/91 10/31/23 23:13 Pulse Oximetry 94 10/31/23 23:48 Oxygen Delivery Me thod Nasal Cannula 10/31/23 23:48 Oxygen Flow Rate 3 10/31/23 23:48 MDM - SOB/Dyspnea Medical Decision Making Patient presented by ambulance for shortness of breath the past week, also associated with cough and some left rib pain from coughing. History of COPD, she uses 4 to 5 L of oxygen at home as needed, though has been requiring this 24/ since her shortness of breath is worsened. States she has been in quite a bit of pain as she is set for a left hip replacement, has been able to keep down her medications due to the frequent coughing. She was noted to be 90 to 92% initially on arrival to the emergency department, did have some diffuse wheezing throughout. She was given DuoNeb and IV Solu-Medrol, and although she does note her breathing felt more comfortable, she has not been noted to drop into the upper 80s on room air. All of her labs unremarkable including BMP, CBC, and CMP. Chest x-ray unremarkable. CT chest abdomen pelvis obtained that she then began complaining of abdominal pain, and this was negative. Urinalysis negative. Spoke with Dr. Nguyen who kindly agrees to admit the patient to [facility] for further pulse oximetry monitoring, as I do believe she is having a COPD exacerbation. Also discussed this case in the emergency department with Dr. Mcgowan who agrees with plan for admission. Patient was informed of this plan and agrees, all of the questions and concerns addressed. Lab Data 10/31/23 17:24 10/31/23 17:24 Labs/Radiology: Radiology Impressions Chest X-Ray 10/31/23 17:44 IMPRESSION: No acute findings. Chest/Abdomen/Pelvis CT 10/31/23 19:56 IMPRESSION: 1. No acute findings. 2. Chronic atelectasis of uncertain etiology 3. Stable right lung nodule 4. For patients at low risk (minimal or absent history of smoking and of other known risk factors), no routine follow-up is indicated. For patients at high risk (history of smoking or of other known risk factors), consider IMPRESSION: 1. No acute findings. 2. Stable right adrenal adenoma 3. A benign renal cyst or cysts have been detected. No further follow-up imaging is required. COMMENTS: Consistent with the [employer]'s Incidental Findings Committee white paper (J Am Mary Radiol 2018): Any incidental renal lesion less than 1 cm or classified as too small to characterize, or any incidental cystic renal lesion characterized as simple-appearing, is likely benign. No follow-up imaging is recommended for these lesions per consensus recommendations based on imaging criteria. Laboratory Results WBC 15.17 10^3/uL (3.29-11.43) H 10/31/23 17:24 RBC 4.70 10^6/uL (3.85-5.65) 10/31/23 17:24 Hgb 13.70 g/dL (11.27-16.99) 10/31/23 17:24 Hct 43.3 % (36-47) 10/31/23 17:24 MCV 92.1 fl (85-98) 10/31/23 17:24 MCH 29.1 pg (27-33) 10/31/23 17:24 MCHC 31.6 g/dL (30-55) 10/31/23 17:24 RDW 14.0 % (12.1-15.1) 10/31/23 17:24 Plt Count 278 10^3/cmm (157-399) 10/31/23 17:24 MPV 10.4 fL (7.4-10.4) 10/31/23 17:24 Neut % (Auto) 59.0 % 10/31/23 17:24 Lymph % (Auto) 31.3 % 10/31/23 17:24 [place] % (Auto) 6.6 % 10/31/23 17:24 Eos % (Auto) 1.8 % 10/31/23 17:24 Baso % (Auto) 0.5 % 10/31/23 17:24 Neut # (Auto) 8.96 10^3/uL (1.8-7.7) H 10/31/23 17:24 Lymph # (Auto) 4.8 10^3/uL (0.8-4.8) 10/31/23 17:24 [place] # (Auto) 1.0 10^3/uL (0.2-0.9) H 10/31/23 17:24 Eos # (Auto) 0.3 10^3/uL (0.0-0.8) 10/31/23 17:24 Baso # (Auto) 0.1 10^3/uL (0.0-0.1) 10/31/23 17:24 Nucleated RBC % (auto) 0 % 10/31/23 17:24 Nucleated RBCs # 0.0 /100WBC 10/31/23 17:24 Specimen Type Arterial 10/31/23 17:55 Sample Site Radial, left 10/31/23 17:55 ABG pH 7.41 (7.35-7.45) 10/31/23 17:55 ABG pCO2 42.2 mmHg (35-45) 10/31/23 17:55 ABG pO2 63.6 mmHg (80.0-100.0) L 10/31/23 17:55 ABG PO2/FiO2 Ratio 302 10/31/23 17:55 ABG HCO3 26.9 mmol/L (22-26) H 10/31/23 17:55 ABG O2 Saturation 93.7 10/31/23 17:55 ABG Base Excess 2.0 mmol/L (-2.0-2.0) 10/31/23 17:55 Cameron Test Pos 10/31/23 17:55 A-a O2 Gradient 4.4 mmHg (5-10) L 10/31/23 17:55 Hematocrit 41.1 % (37-47) 10/31/23 17:55 Hgb O2 Saturation 86.3 % (95-100) L 10/31/23 17:55 Carboxyhemoglobin 6.6 %THgb (0.4-20.1) 10/31/23 17:55 Methemoglobin 1.3 % (0.4-1.5) 10/31/23 17:55 Total Hemoglobin 13.4 g/dL (12-16) 10/31/23 17:55 Sodium 145.0 mmol/L (131-143) H 10/31/23 17:55 Potassium 3.6 mmol/L (3.5-5.0) 10/31/23 17:55 Glucose 118.0 mg/dL (70-115) H 10/31/23 17:55 Ionized Calcium 1.3 mmol/L (1.1-1.4) 10/31/23 17:55 O2 Delivery Device Room air 10/31/23 17:55 FiO2 21.0 % 10/31/23 17:55 Home Health Assistant ID Broma 10/31/23 17:55 Sodium 144 mmol/L (136-145) 10/31/23 17:24 Potassium 3.7 mmol/L (3.5-5.1) 10/31/23 17:24 Chloride 106 mmol/L (98-107) 10/31/23 17:24 Carbon Dioxide 25 mmol/L (22-29) 10/31/23 17:24 Anion Gap 16.7 (5-19) 10/31/23 17:24 BUN 13 mg/dL (6-20) 10/31/23 17:24 Creatinine 0.4 mg/dL (0.5-0.9) L 10/31/23 17:24 GFR Calculation 163.9 mL/min (90-130) H 10/31/23 17:24 Glucose 144 mg/dL (65-115) H 10/31/23 17:24 Calculated Osmolality 301 mOsm/kg (285-295) H 10/31/23 17:24 Lactic Acid 2.5 mmol/L (0.5-2.2) H 10/31/23 22:15 Calcium 9.5 mg/dL (8.5-10.5) 10/31/23 17:24 Total Bilirubin 0.3 mg/dL (0.15-1.2) 10/31/23 17:24 AST 64 U/L (0-32) H 10/31/23 17:24 ALT 17 U/L (0-33) 10/31/23 17:24 Alkaline Phosphatase 79 U/L (35-105) 10/31/23 17:24 Troponin T Baseline < 6 ng/L (0-10) 10/31/23 22:15 NT-Pro-B Natriuret Pep 330 pg/mL (0-125) H 10/31/23 17:24 Total Protein 7.8 g/dL (6.6-8.7) 10/31/23 17:24 Albumin 4.1 g/dL (3.5-5.2) 10/31/23 17:24 Globulin 3.7 g/dL (1.3-4.6) 10/31/23 17:24 Triglycerides 98 mg/dL (0-150) 10/31/23 22:15 Cholesterol 153 mg/dL (0-200) 10/31/23 22:15 LDL Cholesterol, Calc 95 mg/dL (50-129) 10/31/23 22:15 HDL Cholesterol 38 mg/dL (60-100) L 10/31/23 22:15 LDL/HDL Ratio 2.50 RATIO (0.00-3.22) 10/31/23 22:15 Cholesterol/HDL Ratio 4.03 mg/dL (0.0-4.40) 10/31/23 22:15 Procalcitonin 0.07 ng/mL (0-0.5) 10/31/23 22:15 TSH 0.31 uIU/mL (0.27-4.20) 10/31/23 22:15 Urine Color Yellow (Yellow) 10/31/23 20:49 Urine Appearance Clear (CLEAR) 10/31/23 20:49 Urine pH 5 (5-7) 10/31/23 20:49 Ur Specific [place] 1.020 (1.005-1.030) 10/31/23 20:49 Urine Protein 2+ (Negative) H 10/31/23 20:49 Urine Glucose (UA) Norm (Normal) 10/31/23 20:49 Urine Ketones Negative (Negative) 10/31/23 20:49 Urine Blood Neg (Negative) 10/31/23 20:49 Urine Nitrate Negative (Negative) 10/31/23 20:49 Urine Bilirubin Neg (Negative) 10/31/23 20:49 Urine Urobilinogen Neg mg/dL (Negative) 10/31/23 20:49 Ur Leukocyte Esterase Negative (Negative) 10/31/23 20:49 Urine RBC 0-4 /hpf (0-2) H 10/31/23 20:49 Urine WBC None /hpf (0-5) 10/31/23 20:49 Ur Squamous Epith Cells 5-10 /hpf (0-5) H 10/31/23 20:49 Amorphous Sediment Not Reportable 10/31/23 20:49 Urine Bacteria Trace /hpf (NONE) 10/31/23 20:49 Urine Mucus 1+ /hpf 10/31/23 20:49 Influenza Type A Ag negative (Negative) 10/31/23 17:59 Influenza Type B Ag negative (Negative) 10/31/23 17:59 SARS-CoV-2 Ag (Rapid) negative (Negative) 10/31/23 17:59 All radiology interpretation(s) finalized by discharge Discharge Plan Discharge Patient Disposition: Admitted As Inpatient Admit Provider: Bandar Nguyen Clinical Impression: COPD exacerbation Condition: Stable Coding Level of Care Code ED Art Sales Consultant for Abdirahman Hill
[2023-10-31] MEDS: ipratropium-albuterol 3 mL Neb INHALATION (17:55)
[2023-10-31] MEDS: methylPREDNISolone sod succ 125 mg/2 mL INJ IVP (17:58)
[2023-10-31 18:01] LABS: ABG PCO2 42.2 mmHg (35-45); ABG PH Result 7.41 (7.35-7.45); Alveolar-Arterial Oxygen Gradi 4.4 mmHg (5-10); Arterial Blood Gas Hematocrit 41.1 % (37-47); Blood Gas Allen Test Pos; Blood Gas Sample Site Radial, left; Blood Gas Sample Type Arterial; Carboxyhemoglobin 6.6 %THgb (0.4-20.1); HCO3 ABG 26.9 mmol/L (22-26); HGB O2 Sat 86.3 % (95-100); Ionized Calcium Level - ABG 1.3 mmol/L (1.1-1.4); Methemoglobin 1.3 % (0.4-1.5); Oxygen Saturation ABG 93.7; PO2 ABG 63.6 mmHg (80.0-100.0); Potassium Level - ABG 3.6 mmol/L (3.5-5.0); Total Hemoglobin 13.4 g/dL (12-16)
[2023-10-31 18:02] LABS: Blood Gas Operator Identificat BROMA; Oxygen Device ROOM AIR; PO2 FiO2 Ratio Arterial Blood 302
[2023-10-31 18:05] LABS: Basophils # 0.1 10^3/uL (0.0-0.1); Basophils % 0.5 %; Eosinophils # 0.3 10^3/uL (0.0-0.8); Eosinophils % 1.8 %; Hematocrit 43.3 % (36-47); Lymphocytes # 4.8 10^3/uL (0.8-4.8); Lymphocytes % 31.3 %; Mean Corpuscular HGB Conc 31.6 g/dL (30-55); Mean Corpuscular Hemoglobin 29.1 pg (27-33); Mean Corpuscular Volume 92.1 fl (85-98); Mean Platelet Volume 10.4 fL (7.4-10.4); Monocytes % 6.6 %; Neutrophils # 8.96 10^3/uL (1.8-7.7); Nucleated Red Blood Cells % 0 %; Platelet Count 278 10^3/cmm (157-399); White Blood Count 15.17 10^3/uL (3.29-11.43)
[2023-10-31 18:30] LABS: Alanine Aminotransferase 17 U/L (0-33); Albumin Level 4.1 g/dL (3.5-5.2); Alkaline Phosphatase 79 U/L (35-105); Anion Gap 16.7 (5-19); Aspartate Amino Transferase 64 U/L (0-32); Blood Urea Nitrogen 13 mg/dL (6-20); Calcium 9.5 mg/dL (8.5-10.5); Carbon Dioxide 25 mmol/L (22-29); Chloride 106 mmol/L (98-107); Creatinine Clr Calc Pharmacy 259.8329; Globulin 3.7 g/dL (1.3-4.6); Glomerular Filtration Rate 163.9 mL/min (90-130); Glucose 144 mg/dL (65-115); NT Pro B Type Natriuretic Pept 330 pg/mL (0-125); Osmolality Calculated 301 mOsm/kg (285-295); Potassium 3.7 mmol/L (3.5-5.1); Sodium 144 mmol/L (136-145); Total Bilirubin 0.3 mg/dL (0.15-1.2); Total Protein 7.8 g/dL (6.6-8.7)
[2023-10-31 18:36] LABS: Influenza A by IFA negative (Negative); Influenza B by IFA negative (Negative)
[2023-10-31 18:37] LABS: SARS Covid-2 Antigen negative (Negative)
[2023-10-31] MEDS: ondansetron 2 mg/ML SDV 2 mL 4 MG IVP ×2 (18:46→23:47)
[2023-10-31] MEDS: HYDROcodone-acetaminophen 5-325 mg Tablet 1 TAB PO (19:05)
--- NOTE | 2023-10-31 19:56 | CTR_ITS ---
PROCEDURE INFORMATION: Exam: CT Chest With Contrast; Diagnostic Exam date and time: 10/31/2023 8:11 PM Age: 57 years old Clinical indication: Abdominal pain; Acute; Chest pressure; Additional info: Sob/abd pain TECHNIQUE: Imaging protocol: Diagnostic computed tomography of the chest with contrast. Radiation optimization: All CT scans at this facility use at least one of these dose optimization techniques: automated exposure control; mA and/or kV adjustment per patient size (includes targeted exams where dose is matched to clinical indication); or iterative reconstruction. Contrast material: OMNI 350; Contrast volume: 100 ml; Contrast route: INTRAVENOUS (IV); COMPARISON: CT chest wo con [id number] 04/05/2023 9:45 AM RADIATION DOSE METRICS: Total DLP (mGy-cm): 1980 FINDINGS: Lungs: There is linear atelectasis involving the medial aspect of the right apical lung field. Focal atelectasis also involves the right middle lobe. 7 mm rounded nodule lies in the right lower lobe. I see no other nodule or infiltrate. Pleural spaces: Unremarkable. No pneumothorax. No pleural effusion. Heart: Unremarkable. No cardiomegaly. No pericardial effusion. Lymph nodes: Unremarkable. No enlarged lymph nodes. Vasculature: Unremarkable. No aortic aneurysm. Bones/joints: Unremarkable. No acute fracture. Soft tissues: Unremarkable. optional CT Chest at 12 months. (Reference: Tenzin) REFERENCES: Tenzin Quarles et al. Guidelines for Management of Incidental Pulmonary Nodules Detected on CT Images: From the Fleischner Society 2017. Radiology. 2017;284(1):228-243. PROCEDURE INFORMATION: Exam: CT Abdomen And Pelvis With Contrast Exam date and time: 10/31/2023 8:11 PM Age: 57 years old Clinical indication: Abdominal pain; Acute; Chest pressure; Additional info: Sob/abd pain TECHNIQUE: Imaging protocol: Computed tomography of the abdomen and pelvis with contrast. Radiation optimization: All CT scans at this facility use at least one of these dose optimization techniques: automated exposure control; mA and/or kV adjustment per patient size (includes targeted exams where dose is matched to clinical indication); or iterative reconstruction. Contrast material: OMNI 350; Contrast volume: 100 ml; Contrast route: INTRAVENOUS (IV); COMPARISON: CT abdomen pelvis w con* [id number] 09/29/2023 1:44 PM RADIATION DOSE METRICS: Total DLP (mGy-cm): 1979 FINDINGS: Lungs: Lung bases are clear. No pleural effusion. Liver: Normal. No mass. Gallbladder and biliary ducts: The gallbladder has been resected. Pancreas: Normal. No ductal dilation. Spleen: Normal. No splenomegaly. Adrenal glands: There is a 2.7 cm right adrenal adenoma. Kidneys and ureters: A 5.7 cm cyst involves the left kidney. Stomach and bowel: Unremarkable. No obstruction. No mucosal thickening. Appendix: No evidence of appendicitis. Intraperitoneal space: Unremarkable. No free air. No significant fluid collection. Vasculature: Unremarkable. No abdominal aortic aneurysm. Lymph nodes: Unremarkable. No enlarged lymph nodes. Urinary bladder: Unremarkable as visualized. Reproductive: Unremarkable as visualized. Bones/joints: Unremarkable. No acute fracture. Soft tissues: Unremarkable. CT/CT chest abdpel w/*[id number] IMPRESSION: 1. No acute findings. 2. Chronic atelectasis of uncertain etiology 3. Stable right lung nodule 4. For patients at low risk (minimal or absent history of smoking and of other known risk factors), no routine follow-up is indicated. For patients at high risk (history of smoking or of other known risk factors), consider IMPRESSION: 1. No acute findings. 2. Stable right adrenal adenoma 3. A benign renal cyst or cysts have been detected. No further follow-up imaging is required. COMMENTS: Consistent with the [employer]'s Incidental Findings Committee white paper (J Am Mary Radiol 2018): Any incidental renal lesion less than 1 cm or classified as too small to characterize, or any incidental cystic renal lesion characterized as simple-appearing, is likely benign. No follow-up imaging is recommended for these lesions per consensus recommendations based on imaging criteria.
[2023-10-31] MEDS: morphine 4 mg/mL SDV 1 mL IVP (20:08)
[2023-10-31] MEDS: promethazine 25 mg/mL SDV 1 mL IM (20:08)
[2023-10-31] MEDS: acetaminophen 500 mg Tablet 1000 MG PO (20:10)
[2023-10-31] MEDS: iohexol 350 mg/mL 500 mL Btl (per mL) IV (20:14)
[2023-10-31 21:17] LABS: Add Urine Microscopic? YES; Bacteria Urine TRACE /hpf; Bilirubin Urine Neg (Negative); Blood Urine Neg (Negative); Glucose Urine UA Norm (Normal); Ketones Urine Negative (Negative); Leukocyte Esterase Urine Negative (Negative); Nitrate Urine Negative (Negative); Protein Urine 2+ (Negative); Urine Appearance Clear (CLEAR); Urine Color Yellow (Yellow); Urobilinogen Urine Neg (Negative); pH Urine 5 (5-7)
[2023-10-31 21:18] LABS: Add Urine Culture? No; Mucus Urine 1+ /hpf; RBC Urine 0-4 /hpf (0-2)
[2023-10-31] MEDS: orphenadrine 30 mg/mL Inj 2 mL 60 MG IM (21:36)
--- NOTE | 2023-10-31 22:09 | P.HP_ITS ---
Providers/Chief Complaint 2 Primary Care Provider: Robbie Burrell MD Chief Complaint: sob History of Present Illness This is a 57-year-old male, with a past medical history of COPD, history of obstructive sleep apnea on CPAP, type 2 diabetes mellitus, hypertension, hyperlipidemia, chronic pain, who presents to [facility] for complaints of shortness of breath progressively worsening over the last 2 weeks, nonproductive cough, no fevers, chills, no cough. Patient reports progressive shortness of breath over the last 2 weeks, progressing to shortness of breath with rest, no chest pain, no palpitations, and has a nonproductive cough, no fevers, no chills, no lightheadedness, no dizzines Review of Systems 2 Const: Denies: fever(s) or chills Card: Denies: chest pain Resp: Reports: dyspnea and non-productive cough Medications/Allergies Home Medications Medication Instructions Recorded Confirmed Last Taken Type manual wheelchair #1 ea 10/03/19 09/22/23 Unknown Rx TENS unit and equipment #1 ea 10/01/22 09/22/23 Unknown Rx wheelchair #1 ea 10/14/22 09/22/23 Unknown Rx CPAP 6-16cm setting #1 ea 11/23/22 09/22/23 Unknown Rx CPAP mask, tubing, supplies #1 ea 11/23/22 09/22/23 Unknown Rx Left wrist brace #1 ea 12/06/22 09/22/23 Unknown Rx lancets #100 ea 01/24/23 09/22/23 Unknown Rx lancets #200 ea 02/21/23 09/22/23 Unknown Rx motorized electric scooter #1 ea 02/21/23 09/22/23 Unknown Rx blood sugar diagnostic (Blood #200 ea 03/04/23 09/22/23 Unknown Rx Glucose Test strips) alcohol swabs 1 pad topical DIRECTED #200 ea 03/16/23 09/22/23 Unknown Rx blood sugar diagnostic (Blood #200 ea 03/16/23 09/22/23 Unknown Rx Glucose Test strips) lancets #200 ea 03/16/23 09/22/23 Unknown Rx naloxone 4 mg/actuation nasal 4 mg intranasal Q2M PRN opioid 03/16/23 09/22/23 Unknown Rx spray (Narcan) overdose #2 ea pen needle, diabetic 30 gauge x #100 ea 03/17/23 09/22/23 Unknown Rx 5/16 (Pen Needle) lorazepam 0.5 mg tablet (Ativan) 0.5 mg PO ONCE anxiety #1 tab 04/04/23 09/22/23 Unknown Rx hydrocodone 5 mg-acetaminophen 325 2 tab PO BID PRN pain 30 days #120 05/30/23 09/22/23 Unknown Rx mg tablet tabs morphine 30 mg tablet,extended 30 mg PO Q12H pain 30 days #60 tabs 06/01/23 09/22/23 Unknown Rx release (MS Contin) blood-glucose meter,continuous #1 ea 07/29/23 09/22/23 Unknown Rx (Dexcom G7 Senior Nuclear Medicine Technologist) dexcom G7 transmitter #1 ea 07/29/23 09/22/23 Unknown Rx albuterol sulfate 90 mcg/actuation 2 puff inhalation Q6H PRN 08/17/23 09/22/23 Unknown Rx aerosol inhaler shortness of breath or wheezing #8.5 grams alcohol swabs 1 pad topical DIRECTED #200 ea 08/17/23 09/22/23 Unknown Rx aspirin 81 mg chewable tablet 81 mg PO QAM #60 tabs 08/17/23 09/22/23 Unknown Rx atorvastatin 40 mg tablet (Lipitor) 40 mg PO BEDTIME #90 tabs 08/17/23 09/22/23 Unknown Rx escitalopram oxalate 20 mg tablet 20 mg PO QAM #90 tabs 08/17/23 09/22/23 Unknown Rx (Lexapro) famotidine 20 mg tablet See Rx Instructions .Route 08/17/23 09/22/23 Unknown Rx .COMPLEX #60 tabs fluticasone 250 mcg-salmeterol 50 See Rx Instructions .Route 08/17/23 09/22/23 Unknown Rx mcg/dose blistr powdr for .COMPLEX #60 ea inhalation (Advair Diskus) glipizide 10 mg tablet See Rx Instructions .Route 08/17/23 09/22/23 Unknown Rx .COMPLEX #90 tabs insulin glargine 100 unit/mL (3 10 unit (0.1 mL) SUBCUT QAM #15 mL 08/17/23 09/22/23 Unknown Rx mL) subcutaneous pen (Lantus Solostar U-100 Insulin) ipratropium 0.5 mg-albuterol 3 mg 3 ml inhalation Q6H PRN shortness 08/17/23 09/22/23 Unknown Rx (2.5 mg base)/3 mL nebulization of breath or wheezing #180 mL soln tiotropium bromide 18 mcg capsule 1 cap inhalation DAILY #60 08/17/23 09/22/23 Unknown Rx with inhalation device (Spiriva inhalations with HandiHaler) hydrocodone 5 mg-acetaminophen 325 1 tab PO Q6H PRN pain 5 days #20 08/22/23 09/22/23 Unknown Rx mg tablet tabs baclofen 15 mg tablet 15 mg PO BID #60 tabs 08/30/23 09/22/23 Unknown Rx hydrocodone 5 mg-acetaminophen 325 1 tab PO Q6H PRN pain #14 tabs 09/29/23 Unknown Rx mg tablet gabapentin 600 mg tablet See Rx Instructions .Route 10/18/23 Unknown Rx .COMPLEX #90 tabs promethazine 25 mg tablet See Rx Instructions .Route 10/18/23 Unknown Rx .COMPLEX #30 tabs Seroquel XR 150 mg tablet,extended See Rx Instructions .Route 10/25/23 Unknown Rx release (quetiapine) .COMPLEX #30 tabs duloxetine 30 mg capsule,delayed See Rx Instructions .Route 10/25/23 Unknown Rx release .COMPLEX #30 ea meloxicam 15 mg tablet See Rx Instructions .Route 10/25/23 Unknown Rx .COMPLEX #60 tabs metformin 500 mg tablet 1,000 mg (2 x 500 mg) PO BID #180 10/28/23 Unknown Rx tabs blood-glucose sensor (Dexcom G7 #2 ea 10/31/23 Unknown Rx Sensor device) Allergies Allergy/AdvReac Type Severity Reaction Status Date / Time ketorolac [From Toradol] Allergy Severe ALGY-Anaphy Verified 10/31/23 17:46 laxis Penicillins Allergy Severe ALGY-Anaphy Verified 10/31/23 17:46 laxis Sulfa (Sulfonamide Allergy Severe ALGY-Anaphy Verified 10/31/23 17:46 Antibiotics) laxis tetracycline Allergy Severe ALGY-Anaphy Verified 10/31/23 17:46 laxis lidocaine Allergy ALGY-Hives Verified 10/31/23 17:46 tramadol [From Ultram] Allergy ALGY-Difficulty Verified 10/31/23 17:46 Breathing PFSH Acute 2 PFSH: Medical History Pulmonary nodules Rheumatoid arthritis History of stroke Chronic cystitis delivery delivered Constipation Hematochezia Insomnia Community acquired pneumonia History of bipolar disorder History of hypertension Surgical History History of incisional hernia repair History of hysterectomy History of cholecystectomy History of tonsillectomy History of knee surgery Family History Mother , at age 78 COVID-19 Brother , at age 58 Cancer Colon Father , at age 45 Car occupant injured in traffic accident Cancer Colon Family/Other Cancer Paternal-lung Other Chronic kidney disease (CKD) Dementia Diabetes Hyperlipidemia Hypertension Lung disease Stroke Denies family history of CAD (coronary artery disease) Clotting disorder Psychiatric illness Anesthesia complication Bleeding disorder Social History Smoking and tobacco/nicotine status: current every day tobacco/nicotine user cigarettes Packs smoked per day: 0.5 Years cigarettes smoked: 30 [ Other cigarette details: Currently smoking 6-7/day] Quit status (tobacco/nicotine): considering quitting Alcohol intake: never Substance/Drug Use: former Adopted: No Lives independently: Yes Household members: spouse Marital status: Number of grandchildren: 2 Current occupational status: disabled Special sherine needs: No Agree to transfusion: Yes Female Reproductive History: Spontaneous abortions: No Vitals/I&O/Wt Last Vital Signs Temp 99.0 F 10/31/23 17:36 Pulse 83 10/31/23 22:00 Resp 18 10/31/23 22:00 BP 112/47 10/31/23 17:36 Pulse Ox 95 10/31/23 22:00 O2 Del Method Nasal Cannula 10/31/23 22:00 O2 Flow Rate 2 10/31/23 22:00 Weight last 48 hrs Weight 158.757 kg Physical Exam 2 Const: COMMON NORMALS: no acute distress and patient oriented x3 HENMT: COMMON NORMALS: normocephalic HEAD & SCALP: normocephalic Eye: COMMON NORMALS: Equal, round and reactive pupils present Resp: COMMON NORMALS: normal respiratory effort, No retractions and No use of accessory muscles AUSCULTATION: wheezes Cardio: COMMON NORMALS: no JVD, regular rate, regular rhythm, S1 normal heart sound present and S2 normal heart sound present RATE: regular rate RHYTHM: regular rhythm HEART SOUNDS: S1 normal heart sound present and S2 normal heart sound present GI: COMMON NORMALS: Normal to inspection, nondistended, normoactive bowel sounds present, Soft to palpation and non-tender Extremity: COMMON NORMALS: no calf tenderness and no pedal edema Neuro: COMMON NORMALS: patient oriented x3, CN's II-XII intact bilaterally and moves all extremities Psych: COMMON NORMALS: mental status grossly normal Data 10/31/23 17:24 10/31/23 17:24 A&P Assessment and plan (1) COPD exacerbation: (2) Chronic respiratory failure with hypoxia: (3) Type 2 diabetes mellitus: Qualifiers: Diabetes mellitus ocean transportation intermediary insulin use: without ocean transportation intermediary use Diabetes mellitus complication status: with other specified complication Qualified Code(s): E11.69 - Type 2 diabetes mellitus with other specified complication (4) History of hypertension: (5) Dyslipidemia: (6) IVELISSE (obstructive sleep apnea): Plan Acute hypoxic respiratory failure -Secondary COPD exacerbation Plan ? DuoNeb ? Budesonide ? Solu-Medrol 40 mg IV push every 8 hours ? Reports multiple drug allergies, reports multiple drug allergies to antibiotics ? Monitor respiratory status closely continue home CPAP ? Monitor with insulin sliding scale ? CODE STATUS, discussed in detail patient does not want to be intubated, but is okay with resuscitative measures such as CPR, drugs per ACLS, defibrillation, -Lovenox for dvt prophylaxis Chronic pain, morphine 2 mg IV push every 4 hours as needed Will need to do a drug reconciliation in the morning Attestations 2 Medical Necessity Statement*: Patient requires hospitalization, inpatient, greater than 2 midnight, for COPD exacerbation Diagnoses COPD exacerbation J44.1 Chronic respiratory failure with hypoxia J96.11 Type 2 diabetes mellitus with other specified complication, without long-term current use of insulin E11.69 Diabetes mellitus ocean transportation intermediary insulin use: without correction use Diabetes mellitus complication status: with other specified complication History of hypertension Z86.79 Dyslipidemia E78.5 IVELISSE (obstructive sleep apnea) G47.33
[2023-10-31 22:44] LABS: Troponin(5th) Baseline < 6 ng/L (0-10)
[2023-10-31 22:45] LABS: Lactic Sepsis W/Reflex 2.5 mmol/L (0.5-2.2)
[2023-10-31 22:53] LABS: Procalcitonin 0.07 ng/mL (0-0.5)
[2023-10-31 23:40] LABS: Chol HDL Ratio 4.03 mg/dL (0.0-4.40); Cholesterol 153 mg/dL (0-200); HDL Cholesterol 38 mg/dL (60-100); LDL Cholesterol Calculated 95 mg/dL (50-129); Thyroid Stimulating Hormone 0.31 uIU/mL (0.27-4.20); Triglycerides 98 mg/dL (0-150)
--- NOTE | 2023-10-31 23:45 | ECG_ITS ---
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 Measurements Intervals [place] Rate: 92 P: 50 [place]: 178 QRS: -17 QRSD: 87 T: 75 QT: 363 QTc: 449 Interpretive Statements SINUS RHYTHM WITH OCCASIONAL ECTOPIC PREMATURE COMPLEXES LOW QRS VOLTAGE IN PRECORDIAL LEADS [QRS DEFLECTION < 1.0 mV IN CHEST LEADS] SEPTAL MYOCARDIAL INFARCTION , PROBABLY OLD [40+ ms Q WAVE IN V1/V2] Compared to ECG 10/31/2023 17:40:06 Low QRS voltage now present Myocardial infarct finding still present Electronically Signed On 11-01-2023 7:58:53 CDT by Jesse Linda M.D. [id number]
[2023-10-31] MEDS: pantoprazole 40 mg SDV IVP (23:47)
[2023-10-31] MEDS: morphine 4 mg/mL SDV 1 mL 2 MG IVP (23:47)
[2023-10-31] MEDS: quetiapine XR (24HR) 50 mg Tablet 150 MG PO (23:48)
[2023-10-31] MEDS: atorvastatin 40 mg Tablet PO (23:48)
[2023-10-31] MEDS: gabapentin 300 mg Capsule 600 MG PO (23:48)
[2023-11-01] VITALS (18 sets, daily range): BP systolic 102–166; BP diastolic 63–89; PULSE 86–105; RESP 16–21; TEMP 36.4–37.1; O2SAT 90–94
[2023-11-01 00:09] LABS: Reflex Lactate Order REFLEX LACTIC ORDERD
[2023-11-01 00:25] LABS: Estmated Average Glucose 143; Hemoglobin A1C 6.6 % (4.0-6.0)
[2023-11-01 00:44] LABS: Glucose Point of Care 267 mg/dL (70-110)
--- NOTE | 2023-11-01 00:46 | PC.NURSE ---
this nurse notified about the patients uncontrolled pain and nausea. this nurse received orders for Reglan as well as Dilaudid 1mg Q4H prn. upon ordering the medication the dilaudid came up as a allergy contraindication due to the patient having an allergy to Tramadol, this nurse asked the patient what happens when they take tramadol and the patient stated it give her hives and difficulty breathing. i asked the patient if she had ever taken hydromprohone/Dilaudid and she stated yes and that's what they usually give me in the ER and when asking if she had any complication with it she said no. this nurse notified the provider and reviced the ok to override the contraindication.
[2023-11-01] MEDS: metoclopramide 5 mg/mL SDV 2 mL IVP ×2 (01:04→09:50)
[2023-11-01] MEDS: HYDROmorphone 1 mg/mL INJ 1 mL IVP ×4 (01:04→14:18)
[2023-11-01] MEDS: insulin lispro 100 unit/1 mL SUBCUT ×5 (01:04→22:26)
[2023-11-01 01:17] LABS: Lactic Acid level (Lactate) 3.2 mmol/L (0.5-2.2)
[2023-11-01 01:19] LABS: Troponin 5 2HR Delta 0.00001 ABS# (0-10)
[2023-11-01] MEDS: budesonide 0.5 mg/2 mL Neb INHALATION ×3 (02:19→21:35)
[2023-11-01] MEDS: ipratropium-albuterol 3 mL Neb INHALATION ×3 (02:19→21:35)
--- NOTE | 2023-11-01 03:45 | ECG_ITS ---
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 Measurements Intervals [place] Rate: 94 P: 35 [place]: 171 QRS: -24 QRSD: 85 T: 83 QT: 351 QTc: 441 Interpretive Statements SINUS RHYTHM WITH FREQUENT VENTRICULAR PREMATURE COMPLEXES LOW QRS VOLTAGE IN PRECORDIAL LEADS [QRS DEFLECTION < 1.0 mV IN CHEST LEADS] POSSIBLE RIGHT VENTRICULAR CONDUCTION DELAY [RSR (QR) IN V1/V2] MINIMAL VOLTAGE CRITERIA FOR LVH, CONSIDER NORMAL VARIANT [MEETS CRITERIA IN ONE OF: R(aVL), S(V1), R(V5), R(V5/V6)+S(V1)] SEPTAL MYOCARDIAL INFARCTION , PROBABLY OLD [40+ ms Q WAVE IN V1/V2] Compared to ECG 10/31/2023 22:05:34 Ventricular premature complex(es) now present Myocardial infarct finding still present Electronically Signed On 11-01-2023 7:58:35 CDT by Jesse Linda M.D. [id number]
[2023-11-01 04:47] LABS: Basophils # 0.1 10^3/uL (0.0-0.1); Basophils % 0.3 %; Eosinophils % 0.1 %; Hematocrit 41.8 % (36-47); Lymphocytes # 1.4 10^3/uL (0.8-4.8); Lymphocytes % 9.4 %; Mean Corpuscular HGB Conc 30.9 g/dL (30-55); Mean Corpuscular Hemoglobin 29.2 pg (27-33); Mean Corpuscular Volume 94.6 fl (85-98); Mean Platelet Volume 10.2 fL (7.4-10.4); Monocytes # 0.3 10^3/uL (0.2-0.9); Monocytes % 2.1 %; Nucleated Red Blood Cells % 0 %; Platelet Count 245 10^3/cmm (157-399); Red Blood Count 4.42 10^6/uL (3.85-5.65); Red Cell Distribution Width 13.9 % (12.1-15.1); White Blood Count 15.28 10^3/uL (3.29-11.43)
[2023-11-01 05:05] LABS: Troponin 5 6HR Delta 0.00001 ng/L (0-12)
[2023-11-01 05:08] LABS: Anion Gap 15.6 (5-19); Carbon Dioxide 25 mmol/L (22-29); Chloride 102 mmol/L (98-107); Glucose 303 mg/dL (65-115); Potassium 4.6 mmol/L (3.5-5.1); Sodium 138 mmol/L (136-145)
[2023-11-01 05:27] LABS: Blood Urea Nitrogen 14 mg/dL (6-20); Calcium 8.9 mg/dL (8.5-10.5); Glomerular Filtration Rate 102.7 mL/min (90-130); Osmolality Calculated 298 mOsm/kg (285-295)
[2023-11-01 06:02] LABS: Glucose Point of Care 295 mg/dL (70-110)
[2023-11-01] MEDS: aspirin 81 mg Chew Tablet PO (09:49)
[2023-11-01] MEDS: methylPREDNISolone sod succ 40 mg/mL INJ IVP ×2 (09:49→17:23)
[2023-11-01] MEDS: gabapentin 300 mg Capsule 600 MG PO ×3 (09:49→20:49)
[2023-11-01] MEDS: enoxaparin 40 mg/0.4 mL Syringe SUBCUT (09:49)
--- NOTE | 2023-11-01 10:08 | PC.PHAR ---
Addendum entered by Danae Logan 11/01/23 10:14: DaughterMilo Amity [phone] wants a phone call when pt gets a diagnosis, please Original Note: Dchncghw-Wdxbckacg-lpsoehol pt medicatons. Pt is out of Metformin 500mg and has misplaced her nebulizer.
[2023-11-01 12:17] LABS: Glucose Point of Care 378 mg/dL (70-110)
[2023-11-01] MEDS: azithromycin 250 mg Tablet 500 MG PO (12:45)
[2023-11-01] MEDS: morphine ER (12 HR) 30 mg tablet PO (12:45)
[2023-11-01] MEDS: insulin glargine 100 units/1 mL 20 UNIT SUBCUT (12:46)
[2023-11-01] MEDS: ondansetron 2 mg/ML SDV 2 mL 4 MG IVP (12:49)
[2023-11-01 13:06] LABS: Iron 35 ug/dL (37-145); Percent Saturation 12.6 % (20-50); Total Iron Binding Capacity 277 mcg/dl; Unsaturated Iron Binding 242 ug/dL (112-347)
[2023-11-01 13:19] LABS: Procalcitonin 0.08 ng/mL (0-0.5); Vitamin B12 548 pg/mL (232-1245)
--- NOTE | 2023-11-01 14:10 | PM.PN ---
Subjective Subjective: Admitted overnight. H&P labs appreciated. On examination patient is on 3 L of oxygen supplementation. Complaining of abdominal pain, back pain, hip pain. States her pain is chronic and takes multiple pain medications including morphine 4 tablets 2 times a day, oxycodone. Complaining of sore throat. Complaining of abdominal pain on coughing. On examination patient is tearful. Vitals/I&O/Wt Last Vital Signs Temp 98.8 F 11/01/23 12:00 Pulse 90 11/01/23 12:00 Resp 16 11/01/23 12:45 BP 127/77 11/01/23 12:00 Pulse Ox 92 11/01/23 12:00 O2 Del Method Room Air 11/01/23 14:00 O2 Flow Rate 4 11/01/23 08:38 10/31/23 11/01/23 11/01/23 22:59 06:59 14:59 Intake Total 480 / 480 1200 / 1200 Output Total 450 / 450 Balance 480 / 480 750 / 750 Weight last 48 hrs Weight 165.561 kg Weight 165.561 kg Weight 158.757 kg Physical Exam Narrative: In distress because of pain, tearful, anxious on examination Const: COMMON NORMALS: patient oriented x3 HENMT: COMMON NORMALS: normocephalic HEAD & SCALP: normocephalic Eye: COMMON NORMALS: Equal, round and reactive pupils present PUPIL: Yes Equal, round and reactive pupils present Neck/C-Spine: COMMON NORMALS: no JVD Resp: COMMON NORMALS: normal respiratory effort, No retractions and No use of accessory muscles AUSCULTATION: wheezes Cardio: COMMON NORMALS: no JVD, regular rate, regular rhythm, S1 normal heart sound present and S2 normal heart sound present RATE: regular rate RHYTHM: regular rhythm HEART SOUNDS: S1 normal heart sound present and S2 normal heart sound present GI: COMMON NORMALS: Normal to inspection, nondistended, normoactive bowel sounds present, Soft to palpation and non-tender PALPATION: Yes Soft to palpation Extremity: COMMON NORMALS: no calf tenderness and no pedal edema Neuro: COMMON NORMALS: patient oriented x3, CN's II-XII intact bilaterally and moves all extremities Psych: COMMON NORMALS: mental status grossly normal Data 11/01/23 04:37 11/01/23 04:37 Micro: Microbiology 10/31/23 20:49 Bacterial Antigens - Final Urine Kidney 11/01/23 00:32 Blood Culture - Preliminary Blood SPECIMEN COLLECTED 11/01/23 00:36 Blood Culture - Preliminary Blood SPECIMEN COLLECTED A&P Assessment and plan (1) COPD exacerbation: (2) Chronic respiratory failure with hypoxia: (3) Type 2 diabetes mellitus: Qualifiers: Diabetes mellitus alf insulin use: without intermodal truck driver use Diabetes mellitus complication status: with other specified complication Qualified Code(s): E11.69 - Type 2 diabetes mellitus with other specified complication (4) History of hypertension: (5) Dyslipidemia: (6) IVELISSE (obstructive sleep apnea): (7) Chronic pain: Plan Acute on chronic hypoxic and hypercapnic respiratory failure: Most likely in setting of exacerbation of COPD from a possible viral infection along with obstructive sleep apnea. At baseline patient is on 3 L O2 supplementation. Oxygen supplementation keeping saturation over 88%. CPAP as needed. Continue with Pulmicort twice daily, DuoNeb every 6 hour. For now continue Solu-Medrol 40 mg IV every 8 hour. Check sputum culture, MRSA swab. Follow-up blood culture. Check respiratory viral panel. Low concerns for bacterial pneumonia for now. For now start on empiric Levaquin 750 mg oral daily. Start on Robitussin as needed. Chronic pain: Patient is complaining of pain in her back, abdomen, hip. Appreciate CT chest abdomen pelvis done on admission. Negative for any acute findings. Patient takes high dose of pain medications including baclofen 50 mg twice daily, gabapentin 600 mg 3 times daily, meloxicam, morphine 30 mg extended release, oxycodone. Unable to take oral medications for now. For now continue with IV Dilaudid. Will increase to 2 mg every 4 hours as needed. Will try to give oral medications decrease IV pain medication use. Monitor for oversedation. Type 2 diabetes mellitus: Appreciate A1c of 6.6. Blood sugars elevated for now given patient being on steroids. Start on Lantus 20 units 2 AM along with sliding scale. CODE STATUS: Limited resuscitation. Okay with CPR but no intubation. Carb consistent diet Protonix for PUD prophylaxis Lovenox for DVT prophylaxis. Attestations Medical Necessity Statement*: Requires further hospitalization for management of acute on chronic hypoxic and hypercapnic respiratory failure in setting of COPD exacerbation Diagnoses COPD exacerbation J44.1 Chronic respiratory failure with hypoxia J96.11 Type 2 diabetes mellitus with other specified complication, without long-term current use of insulin E11.69 Diabetes mellitus alf insulin use: without intermodal truck driver use Diabetes mellitus complication status: with other specified complication History of hypertension Z86.79 Dyslipidemia E78.5 IVELISSE (obstructive sleep apnea) G47.33 Chronic pain G89.29
[2023-11-01 15:02] LABS: Adenovirus Not Detected (NOT DETECT); Chlamydia Pneumoniae Not Detected (NOT DETECT); Coronavirus 229E,HKU1,NL63,OC4 Not Detected (NOT DETECT); Human Metapneumovirus Not Detected (NOT DETECT); Human Rhinovirus/Enterovirus Not Detected (NOT DETECT); Influenza A Not Detected (NOT DETECT); Influenza A H1 Not Detected (NOT DETECT); Influenza A H1-2009 Not Detected (NOT DETECT); Influenza A H3 Not Detected (NOT DETECT); Influenza B Not Detected (NOT DETECT); Mycoplasma Pneumoniae Not Detected (NOT DETECT); Parainfluenza Virus Type 1 Not Detected (NOT DETECT); Parainfluenza Virus Type 2 Not Detected (NOT DETECT); Parainfluenza Virus Type 3 Not Detected (NOT DETECT); Parainfluenza Virus Type 4 Not Detected (NOT DETECT); Respiratory Syncytial Virus A Not Detected (NOT DETECT); Respiratory Syncytial Virus B Not Detected (NOT DETECT); SARS-COV-2 Not Detected (NOT DETECT)
[2023-11-01] MEDS: promethazine 25 mg/mL SDV 1 mL IM (15:29)
[2023-11-01] MEDS: levoFLOXacin 750 mg Tablet PO (15:33)
[2023-11-01] MEDS: benzonatate 100 mg Capsule 200 MG PO ×2 (15:33→20:49)
[2023-11-01] MEDS: HYDROmorphone 1 mg/mL INJ 1 mL 2 MG IVP ×2 (15:38→20:48)
[2023-11-01 16:36] LABS: Glucose Point of Care 255 mg/dL (70-110)
[2023-11-01] MEDS: guaiFENesin 100 mg/5 mL UDC 10 mL 200 MG PO ×2 (17:24→20:49)
[2023-11-01] MEDS: baclofen 10 mg Tablet 15 MG PO (17:24)
[2023-11-01 18:50] LABS: MRSA PCR OZH (swab) NOT DETECTED ` (Not Detecte)
[2023-11-01 20:25] LABS: Glucose Point of Care 198 mg/dL (70-110)
[2023-11-01] MEDS: pantoprazole 40 mg SDV IVP (20:47)
[2023-11-01] MEDS: atorvastatin 40 mg Tablet PO (20:49)
[2023-11-01] MEDS: quetiapine XR (24HR) 50 mg Tablet 150 MG PO (20:49)
[2023-11-02] VITALS (16 sets, daily range): BP systolic 105–151; BP diastolic 59–92; PULSE 66–105; RESP 16–21; TEMP 36.4–36.9; O2SAT 92–98
[2023-11-02] MEDS: methylPREDNISolone sod succ 40 mg/mL INJ IVP ×2 (00:47→08:53)
[2023-11-02] MEDS: morphine ER (12 HR) 30 mg tablet PO ×2 (00:47→13:19)
[2023-11-02] MEDS: HYDROmorphone 1 mg/mL INJ 1 mL 2 MG IVP ×2 (01:48→06:12)
[2023-11-02] MEDS: ipratropium-albuterol 3 mL Neb INHALATION ×2 (02:09→13:53)
[2023-11-02 05:49] LABS: Basophils % 0.1 %; Lymphocytes # 1.7 10^3/uL (0.8-4.8); Lymphocytes % 8.1 %; Mean Corpuscular Hemoglobin 29.4 pg (27-33); Mean Corpuscular Volume 97.9 fl (85-98); Mean Platelet Volume 10.4 fL (7.4-10.4); Monocytes # 0.8 10^3/uL (0.2-0.9); Monocytes % 3.9 %; Neutrophils # 17.99 10^3/uL (1.8-7.7); Neutrophils % 85.3 %; Nucleated Red Blood Cells % 0 %; Platelet Count 272 10^3/cmm (157-399); Red Blood Count 4.29 10^6/uL (3.85-5.65); Red Cell Distribution Width 14.2 % (12.1-15.1); White Blood Count 21.13 10^3/uL (3.29-11.43)
[2023-11-02 06:10] LABS: Magnesium 2.2 mg/dL (1.7-2.3)
[2023-11-02 06:12] LABS: Alanine Aminotransferase 13 U/L (0-33); Albumin Level 4.1 g/dL (3.5-5.2); Alkaline Phosphatase 72 U/L (35-105); Anion Gap 16.2 (5-19); Aspartate Amino Transferase 27 U/L (0-32); Blood Urea Nitrogen 22 mg/dL (6-20); Calcium 9.4 mg/dL (8.5-10.5); Carbon Dioxide 26 mmol/L (22-29); Chloride 104 mmol/L (98-107); Creatinine Clr Calc Pharmacy 153.5696; Globulin 3.8 g/dL (1.3-4.6); Glomerular Filtration Rate 85.9 mL/min (90-130); Glucose 267 mg/dL (65-115); Osmolality Calculated 305 mOsm/kg (285-295); Potassium 5.2 mmol/L (3.5-5.1); Sodium 141 mmol/L (136-145); Total Bilirubin 0.2 mg/dL (0.15-1.2); Total Protein 7.9 g/dL (6.6-8.7)
[2023-11-02] MEDS: insulin glargine 100 units/1 mL 20 UNIT SUBCUT (06:13)
[2023-11-02] MEDS: levoFLOXacin 750 mg Tablet PO (06:13)
[2023-11-02 06:23] LABS: Folate Level 6.1 ng/mL (4.8-37.3)
[2023-11-02 06:48] LABS: Glucose Point of Care 280 mg/dL (70-110)
[2023-11-02] MEDS: baclofen 10 mg Tablet 15 MG PO ×2 (08:53→17:42)
[2023-11-02] MEDS: insulin lispro 100 unit/1 mL SUBCUT ×4 (08:54→20:41)
[2023-11-02] MEDS: gabapentin 300 mg Capsule 600 MG PO ×3 (08:54→20:43)
[2023-11-02] MEDS: aspirin 81 mg Chew Tablet PO (08:54)
[2023-11-02] MEDS: benzonatate 100 mg Capsule 200 MG PO ×3 (08:54→20:43)
[2023-11-02] MEDS: enoxaparin 40 mg/0.4 mL Syringe SUBCUT (08:55)
[2023-11-02] MEDS: nicotine 14 mg Patch 1 PATCH TRANSDERMA (08:55)
--- NOTE | 2023-11-02 09:23 | PC.CHAP ---
Pastoral Care Encounter/Spiritual Assessment Type of Contact [] Declined commercial insurance underwriter visit [] Patient/Family/Request visit [] Outpatient visit [] Follow-up visit [] Physician referral [] Code/Alert [] Routine visit [] Staff referral [] Actively dying [] Patient sleeping [] Family support [] [] Out of room [] Palliative care [] [x] Receiving care in room [] Pre-surgical visit [] Trauma [] Long length of stay [] ICU visit [] Other: Relational/Emotional Strength [] Patient feels connected with others/family/visitors/staff [] Distress [] Loneliness/isolation [] Abandonment Spirituality of Patient [] Person of [place] [] Attends Episcopal of their [place] [] Believes in Prayer [] Reads Bible or Oriental Orthodox materials [] There are Spiritual issues to be addressed Pyrometer Operator Interventions [] Prayer [] Active listening [] Non-anxious presence [] Spiritual/emotional support [] Crisis/trauma care [] Spiritual counseling [] Bereavement support [] Provided bereavement packet [] Provided Bible/devotional materials [] Provided toy/stuffed animal, coloring book to patient or family member [] Provided Communion [] Anointing/Kinder [] Salvation [] Completed spiritual assessment [] Other: Impact on Illness or Injury [] Angry [] Fearful [] Anxious [] Often cries [] Exhaustion [] Unable to work [] Unable to attend faith [] Unable to walk/stand [] Unable to read [] Unable to drive [] Unable to eat/drink [] Unable to sleep [] Unable to be with family [] Patient intubated [] Other: Summary Time spent with patient
[2023-11-02 11:33] LABS: Glucose Point of Care 189 mg/dL (70-110)
[2023-11-02] MEDS: duloxetine 30 mg Capsule PO (11:40)
[2023-11-02] MEDS: HYDROmorphone 1 mg/mL INJ 1 mL 0.5 MG IVP ×2 (11:40→20:42)
--- NOTE | 2023-11-02 14:52 | P.PN_ITS ---
Subjective 2 Subjective: No acute events overnight. Today morning patient states she is feeling a lot better. Denies any nausea, vomiting, headache. States pain is well-controlled. Able to tolerate orally. Continues to remain on 4 L of oxygen supplementation. Complaining of jitteriness and shaking of his hands occasionally. Vitals/I&O/Wt Last Vital Signs Temp 97.9 F 11/02/23 11:57 Pulse 104 H 11/02/23 13:53 Resp 20 H 11/02/23 13:53 BP 105/71 11/02/23 11:57 Pulse Ox 92 11/02/23 13:53 O2 Del Method Nasal Cannula 11/02/23 13:53 O2 Flow Rate 4 11/02/23 13:53 11/01/23 11/02/23 11/02/23 22:59 06:59 14:59 Intake Total 680 / 1880 250 / 2130 1080 / 1080 Output Total 500 / 950 500 / 500 Balance 180 / 930 250 / 1180 580 / 580 Weight last 48 hrs Weight 167.965 kg Weight 165.561 kg Weight 165.561 kg Weight 158.757 kg Physical Exam 2 Narrative: No acute distress. Const: COMMON NORMALS: patient oriented x3 HENMT: COMMON NORMALS: normocephalic HEAD & SCALP: normocephalic Eye: COMMON NORMALS: Equal, round and reactive pupils present PUPIL: Yes Equal, round and reactive pupils present Neck/C-Spine: COMMON NORMALS: no JVD Resp: COMMON NORMALS: normal respiratory effort, No retractions and No use of accessory muscles AUSCULTATION: wheezes Cardio: COMMON NORMALS: no JVD, regular rate, regular rhythm, S1 normal heart sound present and S2 normal heart sound present RATE: regular rate RHYTHM: regular rhythm HEART SOUNDS: S1 normal heart sound present and S2 normal heart sound present GI: COMMON NORMALS: Normal to inspection, nondistended, normoactive bowel sounds present, Soft to palpation and non-tender PALPATION: Yes Soft to palpation Extremity: COMMON NORMALS: no calf tenderness and no pedal edema Neuro: COMMON NORMALS: patient oriented x3, CN's II-XII intact bilaterally and moves all extremities Psych: COMMON NORMALS: mental status grossly normal Data 11/02/23 05:35 11/02/23 05:35 Micro: Microbiology 09/17/24 00:32 Blood Culture - Preliminary Blood NEGATIVE TO DATE 11/01/23 00:36 Blood Culture - Preliminary Blood NEGATIVE TO DATE 10/31/23 20:49 Bacterial Antigens - Final Urine Kidney A&P Assessment and plan (1) COPD exacerbation: (2) Chronic respiratory failure with hypoxia: (3) Type 2 diabetes mellitus: Qualifiers: Diabetes mellitus complication status: with other specified complication 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 At baseline patient is on 3 L O2 supplementation. Oxygen supplementation keeping saturation over 88%. CPAP as needed. Continue with Pulmicort twice daily, DuoNeb every 6 hour. For now continue Solu-Medrol 40 mg IV every 8 hour. Check sputum culture, MRSA swab. Follow-up blood culture. Check respiratory viral panel. Low concerns for bacterial pneumonia for now. For now start on empiric Levaquin 750 mg oral daily. Start on Robitussin as needed. Chronic pain: Patient is complaining of pain in her back, abdomen, hip. Appreciate CT chest abdomen pelvis done on admission. Negative for any acute findings. Patient takes high dose of pain medications including baclofen 50 mg twice daily, gabapentin 600 mg 3 times daily, meloxicam, morphine 30 mg extended release, oxycodone. Unable to take oral medications for now. For now continue with IV Dilaudid. Will increase to 2 mg every 4 hours as needed. Will try to give oral medications decrease IV pain medication use. Monitor for oversedation. Type 2 diabetes mellitus: Appreciate A1c of 6.6. Blood sugars elevated for now given patient being on steroids. Start on Lantus 20 units 2 AM along with sliding scale. CODE STATUS: Limited resuscitation. Okay with CPR but no intubation. Carb consistent diet Protonix for PUD prophylaxis Lovenox for DVT prophylaxis. Plan for the day: Patient continues to improve. Jitteriness and shakiness most likely in setting of excessive pain medications along with high-dose steroids. Weaning of both were to be done today. Oxygen supplementation keeping saturation over 90%. Baseline at 3 L. Wean Solu-Medrol to 40 mg daily. Follow-up blood cultures. Sputum culture not collected. Continue with empiric Levaquin. Continue with home pain medications. Decrease Dilaudid to 0.5 every 8 hourly as needed. Continue other chronic oral home medications. Change DuoNeb to ipratropium, Xopenex every 6 hourly. A1c of 6.6. Continue with 20 units Lantus and sliding scale. 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
[2023-11-02] MEDS: acetaminophen 325 mg Tablet 650 MG PO (15:25)
[2023-11-02] MEDS: guaiFENesin 100 mg/5 mL UDC 10 mL 200 MG PO ×2 (15:30→20:42)
[2023-11-02 16:37] LABS: Glucose Point of Care 269 mg/dL (70-110)
[2023-11-02] MEDS: budesonide 0.5 mg/2 mL Neb INHALATION (19:33)
[2023-11-02] MEDS: levalbuterol 0.63 mg/3 mL Neb INHALATION (19:33)
[2023-11-02] MEDS: ipratropium 0.5 mg/2.5 mL Neb INHALATION (19:33)
[2023-11-02 20:41] LABS: Glucose Point of Care 372 mg/dL (70-110)
[2023-11-02] MEDS: promethazine 25 mg/mL SDV 1 mL IM (20:41)
[2023-11-02] MEDS: pantoprazole 40 mg SDV IVP (20:42)
[2023-11-02] MEDS: atorvastatin 40 mg Tablet PO (20:43)
[2023-11-02] MEDS: quetiapine XR (24HR) 50 mg Tablet 150 MG PO (20:43)
[2023-11-03] VITALS (8 sets, daily range): BP systolic 126–144; BP diastolic 74–80; PULSE 73–94; RESP 16–20; TEMP 36.4–36.6; O2SAT 93–96
[2023-11-03 00:08] LABS: Glucose Point of Care 182 mg/dL (70-110)
[2023-11-03] MEDS: morphine ER (12 HR) 30 mg tablet PO (00:40)
[2023-11-03] MEDS: ipratropium 0.5 mg/2.5 mL Neb INHALATION ×2 (01:48→08:06)
[2023-11-03] MEDS: levalbuterol 0.63 mg/3 mL Neb INHALATION ×2 (01:48→08:06)
[2023-11-03 03:28] LABS: Basophils % 0.2 %; Hematocrit 39.4 % (36-47); Lymphocytes # 4.1 10^3/uL (0.8-4.8); Lymphocytes % 20.9 %; Mean Corpuscular HGB Conc 30.2 g/dL (30-55); Mean Corpuscular Hemoglobin 29.2 pg (27-33); Mean Corpuscular Volume 96.8 fl (85-98); Mean Platelet Volume 10.7 fL (7.4-10.4); Monocytes # 1.7 10^3/uL (0.2-0.9); Monocytes % 8.7 %; Neutrophils # 13.41 10^3/uL (1.8-7.7); Neutrophils % 68.4 %; Nucleated Red Blood Cells % 0 %; Platelet Count 251 10^3/cmm (157-399); Red Blood Count 4.07 10^6/uL (3.85-5.65); White Blood Count 19.61 10^3/uL (3.29-11.43)
[2023-11-03 03:50] LABS: Alanine Aminotransferase 10 U/L (0-33); Albumin Level 3.8 g/dL (3.5-5.2); Alkaline Phosphatase 66 U/L (35-105); Anion Gap 11.5 (5-19); Aspartate Amino Transferase 31 U/L (0-32); Blood Urea Nitrogen 19 mg/dL (6-20); Calcium 9.1 mg/dL (8.5-10.5); Carbon Dioxide 31 mmol/L (22-29); Chloride 105 mmol/L (98-107); Creatinine Clr Calc Pharmacy 214.9974; Globulin 3.4 g/dL (1.3-4.6); Glomerular Filtration Rate 126.7 mL/min (90-130); Glucose 133 mg/dL (65-115); Osmolality Calculated 300 mOsm/kg (285-295); Potassium 4.5 mmol/L (3.5-5.1); Sodium 143 mmol/L (136-145); Total Bilirubin 0.2 mg/dL (0.15-1.2); Total Protein 7.2 g/dL (6.6-8.7)
[2023-11-03 03:56] LABS: Magnesium 2.3 mg/dL (1.7-2.3)
[2023-11-03] MEDS: HYDROmorphone 1 mg/mL INJ 1 mL 0.5 MG IVP ×2 (03:57→12:18)
[2023-11-03] MEDS: levoFLOXacin 750 mg Tablet PO (05:10)
[2023-11-03] MEDS: insulin glargine 100 units/1 mL 20 UNIT SUBCUT (05:11)
[2023-11-03] MEDS: guaiFENesin 100 mg/5 mL UDC 10 mL 200 MG PO ×2 (05:11→12:18)
[2023-11-03 06:18] LABS: Glucose Point of Care 160 mg/dL (70-110)
[2023-11-03] MEDS: budesonide 0.5 mg/2 mL Neb INHALATION (08:06)
[2023-11-03] MEDS: duloxetine 30 mg Capsule PO (08:45)
[2023-11-03] MEDS: gabapentin 300 mg Capsule 600 MG PO (08:45)
[2023-11-03] MEDS: benzonatate 100 mg Capsule 200 MG PO (08:46)
[2023-11-03] MEDS: insulin lispro 100 unit/1 mL SUBCUT (08:46)
[2023-11-03] MEDS: baclofen 10 mg Tablet 15 MG PO (08:46)
[2023-11-03] MEDS: methylPREDNISolone sod succ 40 mg/mL INJ IVP (08:46)
[2023-11-03] MEDS: aspirin 81 mg Chew Tablet PO (08:46)
[2023-11-03] MEDS: nicotine 14 mg Patch 1 PATCH TRANSDERMA (08:47)
[2023-11-03] MEDS: enoxaparin 40 mg/0.4 mL Syringe SUBCUT (08:47)
--- NOTE | 2023-11-03 10:42 | PM.DCS ---
Discharge Providers Date of Admission: 10/31/23 22:41 Date of Discharge: November 03, 2023 Attending Provider at Admission: Bandar Nguyen MD Attending Provider at Discharge: Chance Oneal MD Primary Care Provider: Robbie Burrell MD Diagnoses at Discharge Discharge Diagnosis (1) COPD exacerbation: Status: Acute (2) Chronic respiratory failure with hypoxia: Status: Acute (3) Type 2 diabetes mellitus: Status: Acute Qualifiers: Diabetes mellitus complication status: with other specified complication Diabetes mellitus buttermaker continuous churn insulin use: without buttermaker continuous churn use Qualified Code(s): E11.69 - Type 2 diabetes mellitus with other specified complication (4) History of hypertension: Status: Acute (5) Dyslipidemia: Status: Acute (6) IVELISSE (obstructive sleep apnea): Status: Acute (7) Chronic pain: Status: Chronic Reason for Visit Reason for Visit: sob Brief History: History as per HPI: This is a 57-year-old male, with a past medical history of COPD, history of obstructive sleep apnea on CPAP, type 2 diabetes mellitus, hypertension, hyperlipidemia, chronic pain, who presents to [facility] for complaints of shortness of breath progressively worsening over the last 2 weeks, nonproductive cough, no fevers, chills, no cough. Patient reports progressive shortness of breath over the last 2 weeks, progressing to shortness of breath with rest, no chest pain, no palpitations, and has a nonproductive cough, no fevers, no chills, no lightheadedness, no dizzines. Hospital Course Hospital Course Patient was admitted to the hospital for further evaluation and management of acute on chronic hypoxic and hypercapnic respiratory failure in setting of COPD and obstructive sleep apnea. Viral panel during hospitalization remain negative. She started on treatment with IV steroids and nebulization treatment after which she has been on her baseline oxygen supplementation for last 24 hours. Steroid has been weaned down. During hospitalization she did require high pain medications which have been transitioned over to her home dose of oral pain medications. She has been discharged in hemodynamically stable condition on steroid taper, nebulization treatment, oral antibiotic with Levaquin for next 7 days, cough suppressant with advised to continue her home pain medications as before. Discharge plan discussed with the patient and her daughter over the phone and all the questions were answered. Physical Exam Narrative: No acute distress. Const: COMMON NORMALS: patient oriented x3 HENMT: COMMON NORMALS: normocephalic HEAD & SCALP: normocephalic Eye: COMMON NORMALS: Equal, round and reactive pupils present PUPIL: Yes Equal, round and reactive pupils present Neck/C-Spine: COMMON NORMALS: no JVD Resp: COMMON NORMALS: normal respiratory effort, No retractions and No use of accessory muscles AUSCULTATION: wheezes Cardio: COMMON NORMALS: no JVD, regular rate, regular rhythm, S1 normal heart sound present and S2 normal heart sound present RATE: regular rate RHYTHM: regular rhythm HEART SOUNDS: S1 normal heart sound present and S2 normal heart sound present GI: COMMON NORMALS: Normal to inspection, nondistended, normoactive bowel sounds present, Soft to palpation and non-tender PALPATION: Yes Soft to palpation Extremity: COMMON NORMALS: no calf tenderness and no pedal edema Neuro: COMMON NORMALS: patient oriented x3, CN's II-XII intact bilaterally and moves all extremities Psych: COMMON NORMALS: mental status grossly normal Discharge Data Studies Completed and Pending Completed Studies During Hospitalization Category Date Time Status CT chest abdomen pelvis [CT chest abdpel w/*[id number] Cat Scan 10/31/23 19:56 Completed ] Stat XR chest 1V portable [id number] Stat Exams 10/31/23 17:44 Completed Pending at discharge Category Date Time Status Blood Culture Routine Lab 10/31/23 23:07 Results MAG [Magnesium] AM LABS Lab 11/04/23 04:00 Ordered Sputum Culture and Gram Stain Stat Lab 11/01/23 12:24 Uncollected Radiology Impressions Chest X-Ray 10/31/23 17:44 IMPRESSION: No acute findings. Chest/Abdomen/Pelvis CT 10/31/23 19:56 IMPRESSION: 1. No acute findings. 2. Chronic atelectasis of uncertain etiology 3. Stable right lung nodule 4. For patients at low risk (minimal or absent history of smoking and of other known risk factors), no routine follow-up is indicated. For patients at high risk (history of smoking or of other known risk factors), consider IMPRESSION: 1. No acute findings. 2. Stable right adrenal adenoma 3. A benign renal cyst or cysts have been detected. No further follow-up imaging is required. COMMENTS: Consistent with the [employer]'s Incidental Findings Committee white paper (J Am Mary Radiol 2018): Any incidental renal lesion less than 1 cm or classified as too small to characterize, or any incidental cystic renal lesion characterized as simple-appearing, is likely benign. No follow-up imaging is recommended for these lesions per consensus recommendations based on imaging criteria. Microbiology 11/01/23 00:32 Blood Blood Culture - Preliminary NEGATIVE TO DATE 11/01/23 00:36 Blood Blood Culture - Preliminary NEGATIVE TO DATE 10/31/23 20:49 Urine Kidney Bacterial Antigens - Final Laboratory Results WBC 19.61 10^3/uL (3.29-11.43) H 11/03/23 02:36 RBC 4.07 10^6/uL (3.85-5.65) 11/03/23 02:36 Hgb 11.90 g/dL (11.27-16.99) 11/03/23 02:36 Hct 39.4 % (36-47) 11/03/23 02:36 MCV 96.8 fl (85-98) 11/03/23 02:36 MCH 29.2 pg (27-33) 11/03/23 02:36 MCHC 30.2 g/dL (30-55) 11/03/23 02:36 RDW 14.0 % (12.1-15.1) 11/03/23 02:36 Plt Count 251 10^3/cmm (157-399) 11/03/23 02:36 MPV 10.7 fL (7.4-10.4) H 11/03/23 02:36 Neut % (Auto) 68.4 % 11/03/23 02:36 Lymph % (Auto) 20.9 % 11/03/23 02:36 [place] % (Auto) 8.7 % 11/03/23 02:36 Eos % (Auto) 0.0 % 11/03/23 02:36 Baso % (Auto) 0.2 % 11/03/23 02:36 Neut # (Auto) 13.41 10^3/uL (1.8-7.7) H 11/03/23 02:36 Lymph # (Auto) 4.1 10^3/uL (0.8-4.8) 11/03/23 02:36 [place] # (Auto) 1.7 10^3/uL (0.2-0.9) H 11/03/23 02:36 Eos # (Auto) 0.0 10^3/uL (0.0-0.8) 11/03/23 02:36 Baso # (Auto) 0.0 10^3/uL (0.0-0.1) 11/03/23 02:36 Nucleated RBC % (auto) 0 % 11/03/23 02:36 Nucleated RBCs # 0.0 /100WBC 11/03/23 02:36 Specimen Type Arterial 10/31/23 17:55 Sample Site Radial, left 10/31/23 17:55 ABG pH 7.41 (7.35-7.45) 10/31/23 17:55 ABG pCO2 42.2 mmHg (35-45) 10/31/23 17:55 ABG pO2 63.6 mmHg (80.0-100.0) L 10/31/23 17:55 ABG PO2/FiO2 Ratio 302 10/31/23 17:55 ABG HCO3 26.9 mmol/L (22-26) H 10/31/23 17:55 ABG O2 Saturation 93.7 10/31/23 17:55 ABG Base Excess 2.0 mmol/L (-2.0-2.0) 10/31/23 17:55 Cameron Test Pos 10/31/23 17:55 A-a O2 Gradient 4.4 mmHg (5-10) L 10/31/23 17:55 Hematocrit 41.1 % (37-47) 10/31/23 17:55 Hgb O2 Saturation 86.3 % (95-100) L 10/31/23 17:55 Carboxyhemoglobin 6.6 %THgb (0.4-20.1) 10/31/23 17:55 Methemoglobin 1.3 % (0.4-1.5) 10/31/23 17:55 Total Hemoglobin 13.4 g/dL (12-16) 10/31/23 17:55 Sodium 145.0 mmol/L (131-143) H 10/31/23 17:55 Potassium 3.6 mmol/L (3.5-5.0) 10/31/23 17:55 Glucose 118.0 mg/dL (70-115) H 10/31/23 17:55 Ionized Calcium 1.3 mmol/L (1.1-1.4) 09/16/24 17:55 O2 Delivery Device Room air 10/31/23 17:55 FiO2 21.0 % 10/31/23 17:55 Roll Grinder Operator ID Avtar 10/31/23 17:55 Sodium 143 mmol/L (136-145) 11/03/23 02:36 Potassium 4.5 mmol/L (3.5-5.1) 11/03/23 02:36 Chloride 105 mmol/L (98-107) 11/03/23 02:36 Carbon Dioxide 31 mmol/L (22-29) H 11/03/23 02:36 Anion Gap 11.5 (5-19) 11/03/23 02:36 BUN 19 mg/dL (6-20) 11/03/23 02:36 Creatinine 0.5 mg/dL (0.5-0.9) 11/03/23 02:36 GFR Calculation 126.7 mL/min (90-130) 11/03/23 02:36 Glucose 133 mg/dL (65-115) H 11/03/23 02:36 POC Glucose 160 mg/dL (70-110) H 11/03/23 06:08 Estimat Average Glucose 143 10/31/23 17:24 Hemoglobin A1c 6.6 % (4.0-6.0) H 10/31/23 17:24 Calculated Osmolality 300 mOsm/kg (285-295) H 11/03/23 02:36 Lactic Acid 2.5 mmol/L (0.5-2.2) H 10/31/23 22:15 Lactic Acid (Sepsis) 3.2 mmol/L (0.5-2.2) H 11/01/23 00:32 Calcium 9.1 mg/dL (8.5-10.5) 11/03/23 02:36 Magnesium 2.3 mg/dL (1.7-2.3) 11/03/23 02:36 Iron 35 ug/dL (37-145) L 11/01/23 02:33 TIBC 277 mcg/dl 11/01/23 02:33 % Saturation 12.6 % (20-50) L 11/01/23 02:33 Unsat Iron Binding 242 ug/dL (112-347) 11/01/23 02:33 Total Bilirubin 0.2 mg/dL (0.15-1.2) 11/03/23 02:36 AST 31 U/L (0-32) 11/03/23 02:36 ALT 10 U/L (0-33) 11/03/23 02:36 Alkaline Phosphatase 66 U/L (35-105) 11/03/23 02:36 Troponin T Baseline < 6 ng/L (0-10) 10/31/23 22:15 Troponin T 120 Minute 6.00 ng/L (0-10) 11/01/23 00:32 Delta Troponin T 0.93185 ABS# (0-10) 11/01/23 00:32 Troponin T Hi Sens 6Hr 6.00 ng/L (0-10) 11/01/23 04:37 Troponin T Hi Sens 6Hr Delta 0.04222 ng/L (0-12) 11/01/23 04:37 NT-Pro-B Natriuret Pep 330 pg/mL (0-125) H 10/31/23 17:24 Total Protein 7.2 g/dL (6.6-8.7) 11/03/23 02:36 Albumin 3.8 g/dL (3.5-5.2) 11/03/23 02:36 Globulin 3.4 g/dL (1.3-4.6) 11/03/23 02:36 Triglycerides 98 mg/dL (0-150) 10/31/23 22:15 Cholesterol 153 mg/dL (0-200) 10/31/23 22:15 LDL Cholesterol, Calc 95 mg/dL (50-129) 10/31/23 22:15 HDL Cholesterol 38 mg/dL (60-100) L 10/31/23 22:15 LDL/HDL Ratio 2.50 RATIO (0.00-3.22) 10/31/23 22:15 Cholesterol/HDL Ratio 4.03 mg/dL (0.0-4.40) 10/31/23 22:15 Vitamin B12 548 pg/mL (232-1245) 11/01/23 02:33 Folate 6.1 ng/mL (4.8-37.3) 11/02/23 05:35 Procalcitonin 0.08 ng/mL (0-0.5) 11/01/23 02:33 TSH 0.31 uIU/mL (0.27-4.20) 10/31/23 22:15 Urine Color Yellow (Yellow) 10/31/23 20:49 Urine Appearance Clear (CLEAR) 10/31/23 20:49 Urine pH 5 (5-7) 10/31/23 20:49 Ur Specific [place] 1.020 (1.005-1.030) 10/31/23 20:49 Urine Protein 2+ (Negative) H 10/31/23 20:49 Urine Glucose (UA) Norm (Normal) 10/31/23 20:49 Urine Ketones Negative (Negative) 10/31/23 20:49 Urine Blood Neg (Negative) 10/31/23 20:49 Urine Nitrate Negative (Negative) 10/31/23 20:49 Urine Bilirubin Neg (Negative) 10/31/23 20:49 Urine Urobilinogen Neg mg/dL (Negative) 10/31/23 20:49 Ur Leukocyte Esterase Negative (Negative) 10/31/23 20:49 Urine RBC 0-4 /hpf (0-2) H 10/31/23 20:49 Urine WBC None /hpf (0-5) 10/31/23 20:49 Ur Squamous Epith Cells 5-10 /hpf (0-5) H 10/31/23 20:49 Amorphous Sediment Not Reportable 10/31/23 20:49 Urine Bacteria Trace /hpf (NONE) 10/31/23 20:49 Urine Mucus 1+ /hpf 10/31/23 20:49 Adenovirus (PCR) Not detected (NOT DETECT) 11/01/23 13:00 C. pneumoniae DNA (PCR) Not detected (NOT DETECT) 11/01/23 13:00 Coronavirus 229E (PCR) Not detected (NOT DETECT) 11/01/23 13:00 Human Metapneumovir PCR Not detected (NOT DETECT) 11/01/23 13:00 Influenza A (H1) PCR Not detected (NOT DETECT) 11/01/23 13:00 Influ A (H1/09) PCR Not detected (NOT DETECT) 11/01/23 13:00 Influenza A (H3) PCR Not detected (NOT DETECT) 11/01/23 13:00 Influenza Type A Ag negative (Negative) 10/31/23 17:59 Influenza Type A (PCR) Not detected (NOT DETECT) 11/01/23 13:00 Influenza Type B Ag negative (Negative) 10/31/23 17:59 Influenza Type B (PCR) Not detected (NOT DETECT) 11/01/23 13:00 M. pneumoniae (PCR) Not detected (NOT DETECT) 11/01/23 13:00 Parainfluenza 1 (PCR) Not detected (NOT DETECT) 11/01/23 13:00 Parainfluenza 2 (PCR) Not detected (NOT DETECT) 11/01/23 13:00 Parainfluenza 3 (PCR) Not detected (NOT DETECT) 11/01/23 13:00 Parainfluenza 4 (PCR) Not detected (NOT DETECT) 11/01/23 13:00 RSV Type A (PCR) Not detected (NOT DETECT) 11/01/23 13:00 RSV Type B (PCR) Not detected (NOT DETECT) 11/01/23 13:00 Entero/Rhino (PCR) Not detected (NOT DETECT) 11/01/23 13:00 SARS-CoV-2 (PCR) Not detected (NOT DETECT) 11/01/23 13:00 SARS-CoV-2 Ag (Rapid) negative (Negative) 10/31/23 17:59 MRSA Culture Not detected ` (Not Detecte) 11/01/23 17:19 Vitals Last Vital Signs Temp 97.7 F 11/03/23 08:12 Pulse 94 11/03/23 08:12 Resp 16 11/03/23 08:12 BP 126/80 11/03/23 08:12 Pulse Ox 95 11/03/23 08:12 O2 Del Method Nasal Cannula 11/03/23 08:12 O2 Flow Rate 5 11/03/23 08:12 Discharge Plan Discharge Patient Disposition: Home Condition: Stable Prescriptions: New prednisone 10 mg tablet See Taper PO DIRECTED Qty: 42 0RF Taper: predniSONE 60-10 60 mg Daily for 2 Days and 0 Hour 50 mg Daily for 2 Days and 0 Hour 40 mg Daily for 2 Days and 0 Hour 30 mg Daily for 2 Days and 0 Hour 20 mg Daily for 2 Days and 0 Hour 10 mg Daily for 2 Days and 0 Hour Rx Instructions: see taper instructions levofloxacin 750 mg tablet 750 mg PO Q24H 7 Days Qty: 7 0RF benzonatate 100 mg Capsule 200 mg PO TID 10 Days Qty: 60 0RF Robitussin Cough-Sore Throat 325-10 mg/10 mL liquid 20 ml PO Q4H PRN (Reason: cold symptoms) Qty: 237 0RF Continued (DME) manual wheelchair See Rx Instructions .Route .MEDSUPPLY Qty: 1 0RF Rx Instructions: As directed (DME) TENS unit and equipment See Rx Instructions .Route .MEDSUPPLY Qty: 1 0RF Rx Instructions: As directed (DME) Left wrist brace See Rx Instructions .Route .MEDSUPPLY Qty: 1 0RF Rx Instructions: As directed (DME) lancets Misc See Rx Instructions .Route Qty: 100 0RF Rx Instructions: As directed (DME) lancets Misc See Rx Instructions .MEDSUPPLY Qty: 200 12RF Rx Instructions: Use as directed to prick skin for blood sugar checks (DME) motorized electric scooter See Rx Instructions .Route .MEDSUPPLY Qty: 1 0RF Rx Instructions: As directed (DME) Blood Glucose Test Strip See Rx Instructions .MEDSUPPLY Qty: 200 12RF Rx Instructions: Use as directed with glucometer to check blood sugar (DME) lancets Misc See Rx Instructions .MEDSUPPLY Qty: 200 12RF Rx Instructions: Use as directed to prick skin for blood sugar checks naloxone [Narcan] 4 mg/actuation spray,non-aerosol 4 mg intranasal Q2M PRN (Reason: opioid overdose) Qty: 2 0RF Rx Instructions: spray 1 dose into ONE nostril; alternate nostrils w each dose (DME) Dexcom G7 [employer] Plant Operator Misc See Rx Instructions .Route Qty: 1 3RF Rx Instructions: As directed (DME) dexcom G7 transmitter See Rx Instructions .Route .MEDSUPPLY Qty: 1 2RF Rx Instructions: As directed (DME) wheelchair See Rx Instructions .Route .MEDSUPPLY Qty: 1 0RF Rx Instructions: As directed (DME) CPAP 6-16cm setting See Rx Instructions .ROUTE .MEDSUPPLY Qty: 1 0RF Rx Instructions: As directed (DME) CPAP mask, tubing, supplies See Rx Instructions .ROUTE .MEDSUPPLY Qty: 1 1RF Rx Instructions: As directed (DME) Blood Glucose Test Strip See Rx Instructions .MEDSUPPLY Qty: 200 12RF Rx Instructions: Use as directed with glucometer to check blood sugar (DME) pen needle, diabetic [Pen Needle] 30 gauge x 5/16 needle See Rx Instructions .MEDSUPPLY Qty: 100 12RF Rx Instructions: Use as directed for insulin administration morphine [MS Contin] 30 mg tablet extended release 30 mg PO Q12H 30 Days Qty: 60 0RF Rx Instructions: do not fill before fill date albuterol sulfate 90 mcg/actuation HFA aerosol inhaler 2 puff inhalation Q6H PRN (Reason: shortness of breath or wheezing) Qty: 8.5 3RF aspirin 81 mg tablet,chewable 81 mg PO QAM Qty: 60 0RF Lipitor 40 mg tablet 40 mg PO BEDTIME Qty: 90 1RF famotidine 20 mg tablet See Rx Instructions .ROUTE .COMPLEX Qty: 60 1RF Dose Instruction: TAKE 1 TABLET BY MOUTH TWICE A DAY Rx Instructions: TAKE 1 TABLET BY MOUTH TWICE A DAY fluticasone propion-salmeterol [Advair Diskus] 250-50 mcg/dose blister with device See Rx Instructions .ROUTE .COMPLEX Qty: 60 3RF Dose Instruction: TAKE 1 PUFF BY MOUTH TWICE A DAY Rx Instructions: TAKE 1 PUFF BY MOUTH TWICE A DAY glipizide 10 mg tablet See Rx Instructions .ROUTE .COMPLEX Qty: 90 0RF Dose Instruction: TAKE 1 TABLET BY MOUTH EVERY DAY Rx Instructions: TAKE 1 TABLET BY MOUTH EVERY DAY insulin glargine [Lantus Solostar U-100 Insulin] 100 unit/mL (3 mL) insulin pen 10 unit SUBCUT QAM Qty: 15 2RF tiotropium bromide [Spiriva with HandiHaler] 18 mcg capsule, w/inhalation device 1 cap inhalation DAILY Qty: 60 6RF Rx Instructions: puncture 1 cap using device; one dose = 2 inhalations baclofen 15 mg tablet 15 mg PO BID Qty: 60 2RF gabapentin 600 mg tablet See Rx Instructions .ROUTE .COMPLEX Qty: 90 0RF Dose Instruction: TAKE 1 TABLET BY MOUTH THREE TIMES DAILY Rx Instructions: TAKE 1 TABLET BY MOUTH THREE TIMES DAILY promethazine 25 mg tablet See Rx Instructions .ROUTE .COMPLEX Qty: 30 0RF Dose Instruction: TAKE 1 TABLET BY MOUTH THREE TIMES DAILY NEEDED FOR NAUSEA AND VOMITING Rx Instructions: TAKE 1 TABLET BY MOUTH THREE TIMES DAILY NEEDED FOR NAUSEA AND VOMITING duloxetine 30 mg capsule,delayed release(DR/EC) See Rx Instructions .ROUTE .COMPLEX Qty: 30 0RF Dose Instruction: Take 1 capsule by mouth once daily Rx Instructions: Take 1 capsule by mouth once daily meloxicam 15 mg tablet See Rx Instructions .ROUTE .COMPLEX Qty: 60 0RF Dose Instruction: TAKE 1 TABLET BY MOUTH IN THE MORNING Rx Instructions: TAKE 1 TABLET BY MOUTH IN THE MORNING quetiapine [Seroquel XR] 150 mg tablet extended release 24 hr See Rx Instructions .ROUTE .COMPLEX Qty: 30 0RF Dose Instruction: TAKE 1 TABLET BY MOUTH AT BEDTIME Rx Instructions: TAKE 1 TABLET BY MOUTH AT BEDTIME metformin 500 mg tablet 1,000 mg PO BID Qty: 180 1RF (DME) Dexcom G7 Sensor Device See Rx Instructions .Route Qty: 2 3RF Rx Instructions: As directed hydrocodone-acetaminophen 5-325 mg tablet 1 tab PO Q6H PRN (Reason: pain) Qty: 14 0RF Changed ipratropium-albuterol 0.5 mg-3 mg(2.5 mg base)/3 mL solution for nebulization 3 ml inhalation Q6H Qty: 180 5RF Discharge Orders: Discharge Order (Routine); Ordered 11/03/23 Ordered By: Chance Oneal Other Ambulatory Orders: DME: Nebulizer with Neb Kit (Order) Location: None Selected Ordered By: Chance Oneal DME: Walker (Order) Location: None Selected Ordered By: Chance Oneal Referrals: [facility] [place] Robbie Burrell MD [Primary Care Provider] - 11/24/23 3:30 pm (You have an appointment to see Dr. Burrell on November 23 at 1530.) Discharge Diet: Cardiac and Diabetic Discharge Activity: Resume usual activity and Increase activity as tolerated Patient Instructions: COPD, Prednisone (By mouth), Levofloxacin (By mouth) (Levaquin, Levaquin Leva-oralia), Urinary Tract Infection in Women (GEN), COPD Stoplight, Opioid Safety, Pain Management Activity Restrictions/Additional Instructions: Take prednisone taper as prescribed. Take Levaquin with antibiotic for next 7 days. Continue all your other medications as before. DuoNeb every 6 hours for now at least for next 2 weeks after that he can continue to use your inhaler as before. Discharge Attestations Time Spent in Discharge Care*: greater than 30 min Quality Metrics Clinical Quality Measures [ No reported AMI, CVA or VTE this stay] Coding Level of Care Code 25303 Total time (in minutes) for Discharge: 60 Diagnoses COPD exacerbation J44.1 Chronic respiratory failure with hypoxia J96.11 Type 2 diabetes mellitus with other specified complication, without long-term current use of insulin E11.69 Diabetes mellitus complication status: with other specified complication Diabetes mellitus prison insulin use: without prison use History of hypertension Z86.79 Dyslipidemia E78.5 IVELISSE (obstructive sleep apnea) G47.33 Chronic pain G89.29
== END 2023-11-03 12:29 | disposition home or self-care (01) | DRG 190 ==
LOC: ER 21:48 → MEDSURG 22:42
PROVIDERS: Admitting Provider Family Medicine; Emergency Provider Physician Assistant; PCP Family Medicine; Visit Provider Student in an Organized Health Care Education/Training Program
DX: J44.1 Chronic obstructive pulmonary disease with (acute) exacerbation (principal); J96.21 Acute and chronic respiratory failure with hypoxia; J96.22 Acute and chronic respiratory failure with hypercapnia; G47.33 Obstructive sleep apnea (adult) (pediatric); I10 Essential (primary) hypertension; E78.5 Hyperlipidemia, unspecified; G89.29 Other chronic pain; M06.9 Rheumatoid arthritis, unspecified; G47.00 Insomnia, unspecified; F17.210 Nicotine dependence, cigarettes, uncomplicated; E11.65 Type 2 diabetes mellitus with hyperglycemia; Z79.899 Other long term (current) drug therapy; Z79.4 Long term (current) use of insulin; Z79.82 Long term (current) use of aspirin; Z88.0 Allergy status to penicillin; Z88.6 Allergy status to analgesic agent; Z88.4 Allergy status to anesthetic agent; Z88.1 Allergy status to other antibiotic agents; Z88.8 Allergy status to other drugs, medicaments and biological substances; Z86.73 Personal history of transient ischemic attack (TIA), and cerebral infarction without residual deficits; Z90.710 Acquired absence of both cervix and uterus; Z90.49 Acquired absence of other specified parts of digestive tract; Z99.81 Dependence on supplemental oxygen
CPT/HCPCS: 36415; 36416; 36600; 71045; 71260; 74177; 80048; 80051; 80053; 80061; 81001; 82330; 82607; 82746; 82805; 82962; 83036; 83540; 83550; 83605; 83735; 83880; 84145; 84443; 84484; 85025; 86403; 87040; 87426; 87486; 87581; 87633; 87804; 93005; 94640; 94660; 94664; 96372; 96374; 96375; 99285; J1170; J1650; J1815; J2270; J2360; J2405; J2470; J2550; J2765; J2919; J7614; J7626; J7644; Q0144

== ENCOUNTER 2023-11-14 13:04 | Inpatient (IN) | payer MEDICAID, SELFPAY ==
[2023-11-14] VITALS (45 sets, daily range): BP systolic 80–156; BP diastolic 49–124; PULSE 1–102; RESP 13–32; TEMP 36.7–37; O2SAT 77–99; BMI 49.0
--- NOTE | 2023-11-14 13:09 | XR_ITS ---
WS: [id number] Exam: XR chest 1V portable [id number] Date/Time of Exam: 11/14/2023 1:09 PM Reason For Exam: dyspnea/cough Comparison 10/31/2023. Subsegmental atelectasis within the RIGHT lower lobe. No consolidating infiltrates. Heart size is top limits normal. No pleural effusions. The mediastinum is not widened. Bony structures are intact. XR/XR chest 1V portable [id number] IMPRESSION: 1. Subsegmental atelectasis RIGHT lower lobe. 2. No acute process identified otherwise.
--- NOTE | 2023-11-14 13:09 | ECG_ITS ---
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 Measurements Intervals Perry Rate: 119 P: 33 SD: 136 QRS: 7 QRSD: 86 T: 85 QT: 330 QTc: 465 Interpretive Statements SINUS TACHYCARDIA WITH FREQUENT VENTRICULAR PREMATURE COMPLEXES LOW QRS VOLTAGE IN PRECORDIAL LEADS [QRS DEFLECTION < 1.0 mV IN CHEST LEADS] SEPTAL MYOCARDIAL INFARCTION , PROBABLY OLD [40+ ms Q WAVE IN V1/V2] Compared to ECG 11/01/2023 03:48:25 Sinus rhythm no longer present Myocardial infarct finding still present Electronically Signed On 11-14-2023 18:42:35 CDT by Jesse Linda M.D. [email or web address]
[2023-11-14 13:30] LABS: Basophils # 0.1 10^3/uL (0.0-0.1); Basophils % 0.4 %; Eosinophils # 0.2 10^3/uL (0.0-0.8); Eosinophils % 1.3 %; Lymphocytes # 4.7 10^3/uL (0.8-4.8); Lymphocytes % 33.3 %; Mean Corpuscular HGB Conc 30.2 g/dL (30-55); Mean Corpuscular Hemoglobin 29.1 pg (27-33); Mean Corpuscular Volume 96.4 fl (85-98); Mean Platelet Volume 10.8 fL (7.4-10.4); Monocytes # 1.4 10^3/uL (0.2-0.9); Neutrophils # 7.66 10^3/uL (1.8-7.7); Neutrophils % 54.4 %; Nucleated Red Blood Cells % 0 %; Platelet Count 204 10^3/cmm (157-399); Red Blood Count 4.46 10^6/uL (3.85-5.65); Red Cell Distribution Width 14.4 % (12.1-15.1); White Blood Count 14.08 10^3/uL (3.29-11.43)
[2023-11-14] MEDS: ipratropium-albuterol 3 mL Neb INHALATION ×2 (13:37→20:40)
--- NOTE | 2023-11-14 13:37 | ED_ITS ---
HPI - SOB/Dyspnea 2 General: Chief Complaint: Shortness of Breath/Dyspnea Stated Complaint: HIP PAIN, SOB, POSS URI Time Seen by Provider: 11/14/23 13:08 History of Present Illness: HPI Narrative: 58-year-old female presents to the emerg ency room with complaints of generalized aches and pains as well as increasing shortness of breath she was recently hospitalized for exacerbation of COPD she was discharged home on Levaquin and steroid taper she is up about at the end of her steroid taper over the last couple days she has noticed increasing shortness of breath. Nonproductive cough she states she takes morphine at home she has not been able to take it and has severe myalgias. No fever at home cough minimally productive. Patient is chronically on 2 L/min by nasal cannula Pertinent past history: COPD Onset (ago): day(s) (3) Timing: constant Severity: moderate Exacerbating factors: exertion and coughing Known history of: COPD Associated symptoms: Reports chest congestion; Deny abdominal pain, chest pain or fever(s) Treatment prior to arrival: oxygen, bronchodilator and other (Steroids and antibiotics) Related Data Previous Rx's Medication Instructions Recorded manual wheelchair #1 ea 10/03/19 TENS unit and equipment #1 ea 10/01/22 wheelchair #1 ea 10/14/22 CPAP 6-16cm setting #1 ea 11/23/22 CPAP mask, tubing, supplies #1 ea 11/23/22 Left wrist brace #1 ea 12/06/22 lancets #100 ea 01/24/23 lancets #200 ea 02/21/23 motorized electric scooter #1 ea 02/21/23 blood sugar diagnostic (Blood #200 ea 03/04/23 Glucose Test strips) blood sugar diagnostic (Blood #200 ea 03/16/23 Glucose Test strips) lancets #200 ea 03/16/23 naloxone 4 mg/actuation nasal 4 mg intranasal Q2M PRN opioid 03/16/23 spray (Narcan) overdose #2 ea pen needle, diabetic 30 gauge x #100 ea 03/17/23 5/16 (Pen Needle) morphine 30 mg tablet,extended 30 mg PO Q12H pain 30 days #60 tabs 06/01/23 release (MS Contin) blood-glucose meter,continuous #1 ea 07/29/23 (Dexcom G7 Abseiling Instructor) dexcom G7 transmitter #1 ea 07/29/23 albuterol sulfate 90 mcg/actuation 2 puff inhalation Q6H PRN 08/17/23 aerosol inhaler shortness of breath or wheezing #8.5 grams aspirin 81 mg chewable tablet 81 mg PO QAM #60 tabs 08/17/23 atorvastatin 40 mg tablet (Lipitor) 40 mg PO BEDTIME #90 tabs 08/17/23 famotidine 20 mg tablet See Rx Instructions .Route 08/17/23 .COMPLEX #60 tabs fluticasone 250 mcg-salmeterol 50 See Rx Instructions .Route 08/17/23 mcg/dose blistr powdr for .COMPLEX #60 ea inhalation (Advair Diskus) glipizide 10 mg tablet See Rx Instructions .Route 08/17/23 .COMPLEX #90 tabs insulin glargine 100 unit/mL (3 10 unit (0.1 mL) SUBCUT QAM #15 mL 08/17/23 mL) subcutaneous pen (Lantus Solostar U-100 Insulin) tiotropium bromide 18 mcg capsule 1 cap inhalation DAILY #60 08/17/23 with inhalation device (Spiriva inhalations with HandiHaler) baclofen 15 mg tablet 15 mg PO BID #60 tabs 08/30/23 hydrocodone 5 mg-acetaminophen 325 1 tab PO Q6H PRN pain #14 tabs 09/29/23 mg tablet gabapentin 600 mg tablet See Rx Instructions .Route 10/18/23 .COMPLEX #90 tabs Seroquel XR 150 mg tablet,extended See Rx Instructions .Route 10/25/23 release (quetiapine) .COMPLEX #30 tabs duloxetine 30 mg capsule,delayed See Rx Instructions .Route 10/25/23 release .COMPLEX #30 ea meloxicam 15 mg tablet See Rx Instructions .Route 10/25/23 .COMPLEX #60 tabs metformin 500 mg tablet 1,000 mg (2 x 500 mg) PO BID #180 10/28/23 tabs blood-glucose sensor (Dexcom G7 #2 ea 10/31/23 Sensor device) acetaminophen 325 mg-DM 10 mg/10 20 ml PO Q4H PRN cold symptoms 11/03/23 mL oral liquid (Robitussin #237 mL Cough-Sore Throat) ipratropium 0.5 mg-albuterol 3 mg 3 ml inhalation Q6H shortness of 11/03/23 (2.5 mg base)/3 mL nebulization breath or wheezing #180 mL soln promethazine 25 mg tablet See Rx Instructions .Route 11/14/23 .COMPLEX #30 tabs Allergies Allergy/AdvReac Type Severity Reaction Status Date / Time ketorolac [From Toradol] Allergy Severe ALGY-Anaphy Verified 10/31/23 17:46 laxis Penicillins Allergy Severe ALGY-Anaphy Verified 10/31/23 17:46 laxis Sulfa (Sulfonamide Allergy Severe ALGY-Anaphy Verified 10/31/23 17:46 Antibiotics) laxis tetracycline Allergy Severe ALGY-Anaphy Verified 10/31/23 17:46 laxis lidocaine Allergy ALGY-Hives Verified 10/31/23 17:46 tramadol [From Ultram] Allergy ALGY-Difficulty Verified 10/31/23 17:46 Breathing Review of Systems 2 Const: Denies: fever(s) or chills Card: Denies: chest pain Resp: Reports: dyspnea, non-productive cough, wheezing and chest congestion GI: Denies: abdominal pain : Denies: dysuria, urinary frequency or urinary urgency Musc: Reports: back pain; Denies: neck pain Skin/Breast: Denies: rash PFSH ED 2 PFSH: Medical History Pulmonary nodules Rheumatoid arthritis History of stroke Chronic cystitis delivery delivered Constipation Hematochezia Insomnia Community acquired pneumonia History of bipolar disorder History of hypertension Surgical History History of incisional hernia repair History of hysterectomy History of cholecystectomy History of tonsillectomy History of knee surgery Family History Mother , at age 78 COVID-19 Brother , at age 58 Cancer Colon Father , at age 45 Car occupant injured in traffic accident Cancer Colon Family/Other Cancer Paternal-lung Other Chronic kidney disease (CKD) Dementia Diabetes Hyperlipidemia Hypertension Lung disease Stroke Denies family history of CAD (coronary artery disease) Clotting disorder Psychiatric illness Anesthesia complication Bleeding disorder Social History Smoking and tobacco/nicotine status: current every day tobacco/nicotine user cigarettes Packs smoked per day: 0.5 Years cigarettes smoked: 30 [ Other cigarette details: Currently smoking 6-7/day] Quit status (tobacco/nicotine): considering quitting Alcohol intake: never Substance/Drug Use: former Adopted: No Lives independently: Yes Household members: spouse Marital status: Number of grandchildren: 2 Current occupational status: disabled Special sherine needs: No Agree to transfusion: Yes Female Reproductive History: Spontaneous abortions: No Physical Exam 2 Const: GENERAL APPEARANCE: cooperative ORIENTATION/CONSCIOUSNESS: Yes awake, Yes oriented to person, Yes oriented to place and Yes oriented to time HENMT: COMMON NORMALS: normocephalic, atraumatic and hearing grossly normal bilaterally HEAD & SCALP: normocephalic and atraumatic Resp: COMMON NORMALS: normal respiratory effort, No retractions and No use of accessory muscles EFFORT & INSPECTION: Yes tachypneic AUSCULTATION: r honchi Cardio: COMMON NORMALS: regular rate, regular rhythm and No murmurs present (Cardio) RATE: regular rate RHYTHM: regular rhythm GI: COMMON NORMALS: Soft to palpation and No hepatosplenomegaly present A USCULTATION: Yes normoactive bowel sounds PALPATION: Yes Soft to palpation, No Tenderness to palpation present (GI), No Guarding due to palpation present (GI) and Yes No hepatosplenomegaly present Extremity: COMMON NORMALS: normal to inspection, capillary refill normal, no clubbing, cyanosis or edema, no calf tenderness and no pedal edema Neuro: SENSORIUM/ORIENTATION: Yes oriented to person, Yes oriented to place and Yes oriented to time Skin: COMMON NORMALS: no rashes or lesions noted GENERAL SKIN EXAM: no rashes or lesions noted Course 2 Vital Signs: Vital signs: Vital Signs Temperature 97.8 F 11/15/23 00:00 Pulse Rate 66 11/15/23 05:44 Respiratory Rate 20 H 11/15/23 02:25 Blood Pressure 120/66 11/15/23 00:05 Pulse Oximetry 92 11/15/23 02:25 Oxygen Delivery Me thod BiPAP 11/14/23 22:54 Oxygen Flow Rate 3 11/14/23 17:30 Fraction of Inspir ed Oxygen 45 11/15/23 04:00 MDM - SOB/Dyspnea Medical Decision Making Initially patient seemed to improve with albuterol treatment for his blood gas had a pH of 733 with a pCO2 is about where she is normally on her bicarb was slightly elevated. She was monitored for time seem to be improving and went to discuss discharge of the patient and evaluating her she appeared to decompensated a bit more. Her oxygen and been turned up to 3. Repeat blood gas shows respiratory acidosis with increased CO2 retention. Will admit the patient was started on BiPAP she already been given steroids. Discussed with hospitalist orders written Medical Records I reviewed the patient's medical records. Lab Data I reviewed the patient's lab results. 11/15/23 05:05 11/15/23 05:05 Labs/Radiology: Radiology Impressions Chest X-Ray 11/14/23 13:09 IMPRESSION: 1. Subsegmental atelectasis RIGHT lower lobe. 2. No acute process identified otherwise. Chest CTA 11/14/23 14:51 IMPRESSION: 1. No central pulmonary emboli. Evaluation for emboli within the more distal segmental and subsegmental pulmonary arteries is limited by timing of contrast. 2. Scattered hypoventilatory changes with areas of air trapping appears more pronounced than prior. Findings may be related to chronic small airways disease. 3. Similar markedly dilated main pulmonary artery which can be seen with pulmonary hypertension. 4. Hepatic steatosis. 5. Similar asymmetric enlargement of the right thyroid lobe. Laboratory Results WBC 14.08 10^3/uL (3.29-11.43) H 11/14/23 13:19 RBC 4.46 10^6/uL (3.85-5.65) 11/14/23 13:19 Hgb 13.00 g/dL (11.27-16.99) 11/14/23 13:19 Hct 43.0 % (36-47) 11/14/23 13:19 MCV 96.4 fl (85-98) 11/14/23 13:19 MCH 29.1 pg (27-33) 11/14/23 13:19 MCHC 30.2 g/dL (30-55) 11/14/23 13:19 RDW 14.4 % (12.1-15.1) 11/14/23 13:19 Plt Count 204 10^3/cmm (157-399) 11/14/23 13:19 MPV 10.8 fL (7.4-10.4) H 11/14/23 13:19 Neut % (Auto) 54.4 % 11/14/23 13:19 Lymph % (Auto) 33.3 % 11/14/23 13:19 Desha % (Auto) 10.0 % 11/14/23 13:19 Eos % (Auto) 1.3 % 11/14/23 13:19 Baso % (Auto) 0.4 % 11/14/23 13:19 Neut # (Auto) 7.66 10^3/uL (1.8-7.7) 11/14/23 13:19 Lymph # (Auto) 4.7 10^3/uL (0.8-4.8) 11/14/23 13:19 Desha # (Auto) 1.4 10^3/uL (0.2-0.9) H 11/14/23 13:19 Eos # (Auto) 0.2 10^3/uL (0.0-0.8) 11/14/23 13:19 Baso # (Auto) 0.1 10^3/uL (0.0-0.1) 11/14/23 13:19 Nucleated RBC % (auto) 0 % 11/14/23 13:19 Nucleated RBCs # 0.0 /100WBC 11/14/23 13:19 Specimen Type Arterial 11/14/23 17:50 Sample Site Radial, right 11/14/23 17:50 ABG pH 7.27 (7.35-7.45) L 11/14/23 17:50 ABG pCO2 60.1 mmHg (35-45) H* 11/14/23 17:50 ABG pO2 78.7 mmHg (80.0-100.0) L 11/14/23 17:50 ABG PO2/FiO2 Ratio 245 11/14/23 17:50 ABG HCO3 27.4 mmol/L (22-26) H 11/14/23 17:50 ABG O2 Saturation 95.3 11/14/23 17:50 ABG Base Excess -0.7 mmol/L (-2.0-2.0) 11/14/23 17:50 Cameron Test Pos 11/14/23 17:50 A-a O2 Gradient 9.8 mmHg (5-10) 11/14/23 17:50 Hematocrit 41.0 % (37-47) 11/14/23 17:50 Hgb O2 Saturation 90.1 % (95-100) L 11/14/23 17:50 Carboxyhemoglobin 4.4 %THgb (0.4-20.1) 11/14/23 17:50 Methemoglobin 1.0 % (0.4-1.5) 11/14/23 17:50 Total Hemoglobin 13.4 g/dL (12-16) 11/14/23 17:50 Sodium 140.0 mmol/L (131-143) 11/14/23 17:50 Potassium 4.8 mmol/L (3.5-5.0) 11/14/23 17:50 Glucose 215.0 mg/dL (70-115) H 11/14/23 17:50 Ionized Calcium 1.3 mmol/L (1.1-1.4) 11/14/23 17:50 O2 Delivery Device Nc 11/14/23 17:50 O2 Liters/Min 3.0 % 11/14/23 17:50 FiO2 32.0 % 11/14/23 17:50 Data Analytics Architect ID [id number] 11/14/23 17:50 Sodium 141 mmol/L (136-145) 11/14/23 13:19 Potassium 4.3 mmol/L (3.5-5.1) 11/14/23 13:19 Chloride 105 mmol/L (98-107) 11/14/23 13:19 Carbon Dioxide 25 mmol/L (22-29) 11/14/23 13:19 Anion Gap 15.3 (5-19) 11/14/23 13:19 BUN 18 mg/dL (6-20) 11/14/23 13:19 Creatinine 0.7 mg/dL (0.5-0.9) 11/14/23 13:19 GFR Calculation 85.6 mL/min (90-130) L 11/14/23 13:19 Glucose 180 mg/dL (65-115) H 11/14/23 13:19 Calculated Osmolality 298 mOsm/kg (285-295) H 11/14/23 13:19 Calcium 9.0 mg/dL (8.5-10.5) 11/14/23 13:19 Total Bilirubin 0.2 mg/dL (0.15-1.2) 11/14/23 13:19 AST 37 U/L (0-32) H 11/14/23 13:19 ALT 16 U/L (0-33) 11/14/23 13:19 Alkaline Phosphatase 67 U/L (35-105) 11/14/23 13:19 Troponin T Baseline 14 ng/L (0-10) H 11/14/23 13:19 Troponin T 120 Minute 12.65 ng/L (0-10) H 11/14/23 15:09 Delta Troponin T -1.35 ABS# (0-10) L 11/14/23 15:09 Total Protein 6.7 g/dL (6.6-8.7) 11/14/23 13:19 Albumin 3.7 g/dL (3.5-5.2) 11/14/23 13:19 Globulin 3.0 g/dL (1.3-4.6) 11/14/23 13:19 Coronavirus (PCR) Negative (Negative) 11/14/23 13:49 Influenza A (PCR) Negative (Negative) 11/14/23 13:49 Influenza Type B (PCR) Negative (Negative) 11/14/23 13:49 RSV (PCR) Negative (Negative) 11/14/23 13:49 All radiology interpretation(s) finalized by discharge Discharge Plan Discharge Patient Disposition: Admitted As Inpatient Admit Provider: Denise Walker Clinical Impression: Acute exacerbation of chronic obstructive pulmonary disease (COPD) Condition: Stable Discharge Diet: Usual diet Discharge Activity: Increase activity as tolerated Coding Level of Care Code ED Wire Taper for Abdirahman Hill
[2023-11-14 13:43] LABS: ABG PCO2 51.3 mmHg (35-45); ABG PH Result 7.33 (7.35-7.45); Alveolar-Arterial Oxygen Gradi 8.3 mmHg (5-10); Arterial Blood Gas Hematocrit 40.1 % (37-47); Blood Gas Allen Test Pos; Blood Gas Operator Identificat GD; Blood Gas Sample Site Radial, right; Blood Gas Sample Type Arterial; Carboxyhemoglobin 6.4 %THgb (0.4-20.1); HCO3 ABG 26.8 mmol/L (22-26); HGB O2 Sat 88.5 % (95-100); Ionized Calcium Level - ABG 1.3 mmol/L (1.1-1.4); Methemoglobin 0.8 % (0.4-1.5); Oxygen Device NC; Oxygen Saturation ABG 95.4; PO2 ABG 72.2 mmHg (80.0-100.0); PO2 FiO2 Ratio Arterial Blood 257; Potassium Level - ABG 3.9 mmol/L (3.5-5.0); Total Hemoglobin 13.1 g/dL (12-16)
[2023-11-14 13:48] LABS: Alanine Aminotransferase 16 U/L (0-33); Albumin Level 3.7 g/dL (3.5-5.2); Alkaline Phosphatase 67 U/L (35-105); Anion Gap 15.3 (5-19); Aspartate Amino Transferase 37 U/L (0-32); Blood Urea Nitrogen 18 mg/dL (6-20); Carbon Dioxide 25 mmol/L (22-29); Chloride 105 mmol/L (98-107); Glomerular Filtration Rate 85.6 mL/min (90-130); Glucose 180 mg/dL (65-115); Osmolality Calculated 298 mOsm/kg (285-295); Potassium 4.3 mmol/L (3.5-5.1); Sodium 141 mmol/L (136-145); Total Bilirubin 0.2 mg/dL (0.15-1.2); Total Protein 6.7 g/dL (6.6-8.7)
[2023-11-14] MEDS: dexamethasone 10 mg/mL INJ IM (13:50)
[2023-11-14] MEDS: ondansetron 2 mg/ML SDV 2 mL 4 MG IVP ×2 (14:32→18:16)
[2023-11-14] MEDS: acetaminophen 325 mg Tablet 650 MG PO (14:32)
--- NOTE | 2023-11-14 14:51 | CTR_ITS ---
PROCEDURE INFORMATION: Exam: CTA Chest With Contrast Exam date and time: 11/14/2023 3:41 PM Age: 58 years old Clinical indication: Dyspnea TECHNIQUE: Imaging protocol: Computed tomographic angiography of the chest with contrast. Exam focused on the arteries. 3D rendering (Not supervised by radiologist): MIP and/or 3D reconstructed images were created by the technologist. Radiation optimization: All CT scans at this facility use at least one of these dose optimization techniques: automated exposure control; mA and/or kV adjustment per patient size (includes targeted exams where dose is matched to clinical indication); or iterative reconstruction. Contrast material: OMNI 350; Contrast volume: 100 ml; Contrast route: INTRAVENOUS (IV); COMPARISON: CT angio chest PE protcl [id number] 01/02/2023 1:50 PM RADIATION DOSE METRICS: Total DLP (mGy-cm): 511 FINDINGS: Pulmonary arteries: Similar marked dilatation of the main pulmonary artery measuring 4.2 cm in caliber. No evidence of central pulmonary embolism. The more distal segmental and subsegmental pulmonary arteries are not well evaluated. Aorta: Mild scattered atherosclerotic aortic calcifications. Thyroid: Similar asymmetric enlargement of the right thyroid lobe with heterogeneity of the thyroid. Lungs: Images acquired during the expiratory phase. Scattered hypoventilatory changes throughout the lungs bilaterally with mosaic attenuation and areas of air trapping, the latter of which is most pronounced in the right upper lobe. Stable 7 mm right lower lobe nodule. Pleural spaces: Unremarkable. No pneumothorax. No pleural effusion. Heart: Stable heart size. Coronary arteries: Limited assessment of coronary artery calcifications is grossly unremarkable. Lymph nodes: Calcified mediastinal/hilar lymph nodes. No lymphadenopathy by size criteria. Liver: Hepatic steatosis. Gallbladder and biliary ducts: Status post cholecystectomy. Adrenal glands: Bilateral adrenal nodules are not significantly changed from prior. Bones/joints: Multilevel degenerative changes of the thoracic spine. No acute or aggressive osseous lesion. Soft tissues: Unremarkable. CT/CT angio chest PE protcl [id number] IMPRESSION: 1. No central pulmonary emboli. Evaluation for emboli within the more distal segmental and subsegmental pulmonary arteries is limited by timing of contrast. 2. Scattered hypoventilatory changes with areas of air trapping appears more pronounced than prior. Findings may be related to chronic small airways disease. 3. Similar markedly dilated main pulmonary artery which can be seen with pulmonary hypertension. 4. Hepatic steatosis. 5. Similar asymmetric enlargement of the right thyroid lobe.
[2023-11-14 15:07] LABS: Covid PCR NEGATIVE (Negative); Influenza A NEGATIVE (Negative); Influenza B NEGATIVE (Negative); Respiratory Syncytial Virus Ce NEGATIVE (Negative)
[2023-11-14 15:21] LABS: Troponin(5th) Baseline 14 ng/L (0-10)
[2023-11-14] MEDS: morphine 4 mg/mL SDV 1 mL 2 MG IVP ×3 (15:35→21:20)
[2023-11-14] MEDS: iohexol 350 mg/mL 500 mL Btl (per mL) IV (15:45)
[2023-11-14 15:56] LABS: Troponin 5 2HR 12.65 ng/L (0-10)
[2023-11-14 15:58] LABS: Troponin 5 2HR Delta -1.35 ABS# (0-10)
--- NOTE | 2023-11-14 16:51 | ECG_ITS ---
[facility] Test Date: 2023-11-14 Pat Name: Cyndi Baca Department: Room: Gender: Female Saw Tailer: : 1965 Requested By: Dheeraj Ortiz Order Number: [id number] Ramila MD: Jesse Linda M.D. Measurements Intervals [place] Rate: 95 P: 53 CA: 170 QRS: 8 QRSD: 93 T: 70 QT: 349 QTc: 439 Interpretive Statements SINUS RHYTHM WITH FREQUENT VENTRICULAR PREMATURE COMPLEXES LOW QRS VOLTAGE IN PRECORDIAL LEADS [QRS DEFLECTION < 1.0 mV IN CHEST LEADS] SEPTAL MYOCARDIAL INFARCTION , PROBABLY OLD [40+ ms Q WAVE IN V1/V2] Compared to ECG 11/14/2023 13:15:10 Sinus tachycardia no longer present Myocardial infarct finding still present Electronically Signed On 11-14-2023 18:53:02 CDT by Jesse Linda M.D. [email or web address]
[2023-11-14 18:09] LABS: ABG PH Result 7.27 (7.35-7.45); Alveolar-Arterial Oxygen Gradi 9.8 mmHg (5-10); Base Excess ABG -0.7 mmol/L (-2.0-2.0); Blood Gas Allen Test Pos; Blood Gas Operator Identificat GD; Blood Gas Sample Site Radial, right; Blood Gas Sample Type Arterial; Carboxyhemoglobin 4.4 %THgb (0.4-20.1); HCO3 ABG 27.4 mmol/L (22-26); HGB O2 Sat 90.1 % (95-100); Ionized Calcium Level - ABG 1.3 mmol/L (1.1-1.4); Oxygen Device NC; Oxygen Saturation ABG 95.3; PO2 ABG 78.7 mmHg (80.0-100.0); PO2 FiO2 Ratio Arterial Blood 245; Potassium Level - ABG 4.8 mmol/L (3.5-5.0); Total Hemoglobin 13.4 g/dL (12-16)
[2023-11-14 18:10] LABS: ABG PCO2 60.1 mmHg (35-45)
--- NOTE | 2023-11-14 18:36 | P.HP_ITS ---
Providers/Chief Complaint 2 Primary Care Provider: Robbie Burrell MD Chief Complaint: HIP PAIN, SOB, POSS UTI History of Present Illness Cyndi Baca is a 58 year old female with a past medical history of COPD, history of obstructive sleep apnea on CPAP, type 2 diabetes mellitus, hypertension, hyperlipidemia, chronic pain, who presents to [facility] for complaints of shortness of breath progressively worsening since yesterday, nonproductive cough and fever with Tmax of 101 ?F. She had recent hospitalization for pneumonia, acute on chronic hypoxic and hypercarbic respiratory failure and COPD exacerbation and was discharged on 11/02 with p.o. antibiotics Levaquin for 7 days and steroid taper. Denies any history of sick contact or recent travel. Denies complaint of chest pain, palpitations, dizziness, diarrhea or urinary complaints. Review of Systems 2 General: Reports: 10 or more systems reviewed and unremarkable except in HPI and below Medications/Allergies Home Medications Medication Instructions Recorded Confirmed Last Taken Type manual wheelchair #1 ea 10/03/19 11/14/23 Unknown Rx TENS unit and equipment #1 ea 10/01/22 11/14/23 Unknown Rx wheelchair #1 ea 10/14/22 11/14/23 Unknown Rx CPAP 6-16cm setting #1 ea 11/23/22 11/14/23 Unknown Rx CPAP mask, tubing, supplies #1 ea 11/23/22 11/14/23 Unknown Rx Left wrist brace #1 ea 12/06/22 11/14/23 Unknown Rx lancets #100 ea 01/24/23 11/14/23 Unknown Rx lancets #200 ea 02/21/23 11/14/23 Unknown Rx motorized electric scooter #1 ea 02/21/23 11/14/23 Unknown Rx blood sugar diagnostic (Blood #200 ea 03/04/23 11/14/23 Unknown Rx Glucose Test strips) blood sugar diagnostic (Blood #200 ea 03/16/23 11/14/23 Unknown Rx Glucose Test strips) lancets #200 ea 03/16/23 11/14/23 Unknown Rx naloxone 4 mg/actuation nasal 4 mg intranasal Q2M PRN opioid 03/16/23 11/14/23 Unknown Rx spray (Narcan) overdose #2 ea pen needle, diabetic 30 gauge x #100 ea 03/17/23 11/14/23 Unknown Rx 5/16 (Pen Needle) morphine 30 mg tablet,extended 30 mg PO Q12H pain 30 days #60 tabs 06/01/23 11/14/23 11/13/23 Rx release (MS Contin) blood-glucose meter,continuous #1 ea 07/29/23 11/14/23 Unknown Rx (Dexcom G7 Accounts Receivable Accountant) dexcom G7 transmitter #1 ea 07/29/23 11/14/23 Unknown Rx albuterol sulfate 90 mcg/actuation 2 puff inhalation Q6H PRN 08/17/23 11/14/23 Unknown Rx aerosol inhaler shortness of breath or wheezing #8.5 grams aspirin 81 mg chewable tablet 81 mg PO QAM #60 tabs 08/17/23 11/14/23 11/13/23 Rx atorvastatin 40 mg tablet (Lipitor) 40 mg PO BEDTIME #90 tabs 08/17/23 11/14/23 11/13/23 Rx famotidine 20 mg tablet See Rx Instructions .Route 08/17/23 11/14/23 11/14/23 Rx .COMPLEX #60 tabs fluticasone 250 mcg-salmeterol 50 See Rx Instructions .Route 08/17/23 11/14/23 11/14/23 Rx mcg/dose blistr powdr for .COMPLEX #60 ea inhalation (Advair Diskus) glipizide 10 mg tablet See Rx Instructions .Route 08/17/23 11/14/23 11/14/23 Rx .COMPLEX #90 tabs insulin glargine 100 unit/mL (3 10 unit (0.1 mL) SUBCUT QAM #15 mL 08/17/23 11/14/23 11/14/23 Rx mL) subcutaneous pen (Lantus Solostar U-100 Insulin) tiotropium bromide 18 mcg capsule 1 cap inhalation DAILY #60 08/17/23 11/14/23 11/13/23 Rx with inhalation device (Spiriva inhalations with HandiHaler) baclofen 15 mg tablet 15 mg PO BID #60 tabs 08/30/23 11/14/23 11/14/23 Rx hydrocodone 5 mg-acetaminophen 325 1 tab PO Q6H PRN pain #14 tabs 09/29/23 11/14/23 11/14/23 Rx mg tablet gabapentin 600 mg tablet See Rx Instructions .Route 0911/14/23 11/14/23 Rx .COMPLEX #90 tabs Seroquel XR 150 mg tablet,extended See Rx Instructions .Route 10/25/23 11/14/23 11/13/23 Rx release (quetiapine) .COMPLEX #30 tabs duloxetine 30 mg capsule,delayed See Rx Instructions .Route 10/25/23 11/14/23 11/14/23 Rx release .COMPLEX #30 ea meloxicam 15 mg tablet See Rx Instructions .Route 10/25/23 11/14/23 11/14/23 Rx .COMPLEX #60 tabs metformin 500 mg tablet 1,000 mg (2 x 500 mg) PO BID #180 10/28/23 11/14/23 11/14/23 Rx tabs blood-glucose sensor (Dexcom G7 #2 ea 10/31/23 11/14/23 Unknown Rx Sensor device) acetaminophen 325 mg-DM 10 mg/10 20 ml PO Q4H PRN cold symptoms 11/03/23 11/14/23 Unknown Rx mL oral liquid (Robitussin #237 mL Cough-Sore Throat) ipratropium 0.5 mg-albuterol 3 mg 3 ml inhalation Q6H shortness of 11/03/23 11/14/23 Unknown Rx (2.5 mg base)/3 mL nebulization breath or wheezing #180 mL soln cefdinir 300 mg capsule 300 mg PO BID 10 days #20 caps 11/14/23 Unknown Rx promethazine 25 mg tablet See Rx Instructions .Route 11/14/23 11/14/23 Unknown Rx .COMPLEX #30 tabs Allergies Allergy/AdvReac Type Severity Reaction Status Date / Time ketorolac [From Toradol] Allergy Severe ALGY-Anaphy Verified 10/31/23 17:46 laxis Penicillins Allergy Severe ALGY-Anaphy Verified 10/31/23 17:46 laxis Sulfa (Sulfonamide Allergy Severe ALGY-Anaphy Verified 10/31/23 17:46 Antibiotics) laxis tetracycline Allergy Severe ALGY-Anaphy Verified 10/31/23 17:46 laxis lidocaine Allergy ALGY-Hives Verified 10/31/23 17:46 tramadol [From Ultram] Allergy ALGY-Difficulty Verified 10/31/23 17:46 Breathing PFSH Acute 2 PFSH: Medical History Pulmonary nodules Rheumatoid arthritis History of stroke Chronic cystitis delivery delivered Constipation Hematochezia Insomnia Community acquired pneumonia History of bipolar disorder History of hypertension Surgical History History of incisional hernia repair History of hysterectomy History of cholecystectomy History of tonsillectomy History of knee surgery Family History Mother , at age 78 COVID-19 Brother , at age 58 Cancer Colon Father , at age 45 Car occupant injured in traffic accident Cancer Colon Family/Other Cancer Paternal-lung Other Chronic kidney disease (CKD) Dementia Diabetes Hyperlipidemia Hypertension Lung disease Stroke Denies family history of CAD (coronary artery disease) Clotting disorder Psychiatric illness Anesthesia complication Bleeding disorder Social History Smoking and tobacco/nicotine status: current every day tobacco/nicotine user cigarettes Packs smoked per day: 0.5 Years cigarettes smoked: 30 [ Other cigarette details: Currently smoking 6-7/day] Quit status (tobacco/nicotine): considering quitting Alcohol intake: never Substance/Drug Use: former Adopted: No Lives independently: Yes Household members: spouse Marital status: Number of grandchildren: 2 Current occupational status: disabled Special sherine needs: No Agree to transfusion: Yes Female Reproductive History: Spontaneous abortions: No Vitals/I&O/Wt Last Vital Signs Temp 98.6 F 11/14/23 14:36 Pulse 82 11/14/23 18:34 Resp 18 11/14/23 18:34 BP 144/77 11/14/23 18:34 Pulse Ox 99 11/14/23 18:34 O2 Del Method Nasal Cannula 11/14/23 17:30 O2 Flow Rate 3 11/14/23 17:30 FiO2 30 11/14/23 18:23 Weight last 48 hrs Weight 158.757 kg Physical Exam 2 Narrative: She is alert awake oriented x 3, morbidly obese, anxious, in moderate respiratory distress Chest air entry equal on both sides, diffuse wheezing present Cardiovascular normal heart sounds Abdomen soft nontender nondistended normal bowel sounds Extremities bilateral 2+ pitting edema present lower extremity Data 11/14/23 13:19 11/14/23 13:19 A&P Assessment and plan (1) Acute exacerbation of chronic obstructive pulmonary disease (COPD): (2) Acute on chronic hypoxic respiratory failure: (3) Chronic hypercapnic respiratory failure: (4) BMI 45.0-49.9, adult: (5) Chronic respiratory failure with hypoxia: (6) Type 2 diabetes mellitus: Qualifiers: Diabetes mellitus mcfp insulin use: without manager terminal use Diabetes mellitus complication status: with other specified complication Qualified Code(s): E11.69 - Type 2 diabetes mellitus with other specified complication (7) Neuropathic pain, leg, bilateral: (8) Osteoarthritis: (9) History of hypertension: (10) Chronic low back pain: Qualifiers: Back pain laterality: unspecified Sciatica presence: without sciatica Qualified Code(s): M54.5 - Low back pain; G89.29 - Other chronic pain (11) GERD without esophagitis: (12) IVELISSE (obstructive sleep apnea): (13) Dyslipidemia: Plan Cyndi Baca is a 58 year old female with a past medical history of COPD, history of obstructive sleep apnea on CPAP, type 2 diabetes mellitus, hypertension, hyperlipidemia, chronic pain, who presents to [facility] for complaints of shortness of breath progressively worsening since yesterday, nonproductive cough and fever with Tmax of 101 ?F likely secondary to COPD exacerbation with acute on chronic hypoxic and hypercarbic respiratory failure. #Acute hypoxic and hypercarbic respiratory failure-secondary to COPD exacerbation WBC count of 14.0, ABG pH 7.3 with pCO2 of 51, repeat ABG pH of 7.2 with pCO2 of 60, respiratory panel negative DuoNebs every 6 hours IV Solu-Medrol 40 mg every 8 hours IV azithromycin 500 mg daily for 3 days. Continue BiPAP for now Mucinex 600 mg twice daily Syrup Robitussin 10 mL every 6 hours as needed Resume home medications Diet-cardio diabetic diet GI prophylaxis with IV Pepcid 20 mg twice daily DVT prophylaxis with subcutaneous Lovenox Pain control with IV morphine 2 mg every 4 hours as needed. Attestations 2 Medical Necessity Statement*: She needs continued hospitalization anticipating crossing 2 midnights for management of acute on chronic hypoxic and hypercarbic respiratory failure secondary to COPD exacerbation with DuoNebs, steroids and BiPAP support Time Spent in Patient Care: 40 minutes Coding Level of Care Code Acute Code for Chg Fwd Diagnoses Acute exacerbation of chronic obstructive pulmonary disease (COPD) J44.1 Acute on chronic hypoxic respiratory failure J96.21 Chronic hypercapnic respiratory failure J96.12 BMI 45.0-49.9, adult Z68.42 Chronic respiratory failure with hypoxia J96.11 Type 2 diabetes mellitus with other specified complication, without long-term current use of insulin E11.69 Diabetes mellitus mcfp insulin use: without mcfp use Diabetes mellitus complication status: with other specified complication Neuropathic pain, leg, bilateral G57.93 Osteoarthritis M19.90 History of hypertension Z86.79 Chronic low back pain without sciatica, unspecified back pain laterality M54.5; G89.29 Back pain laterality: unspecified Sciatica presence: without sciatica GERD without esophagitis K21.9 IVELISSE (obstructive sleep apnea) G47.33 Dyslipidemia E78.5 Time Spent (min) 40
[2023-11-14] MEDS: guaiFENesin-dextromethorphan UDC 10 mL PO (19:12)
[2023-11-14] MEDS: enoxaparin 40 mg/0.4 mL Syringe SUBCUT (19:15)
[2023-11-14] MEDS: famotidine 20 mg/2 mL INJ IVP (19:16)
[2023-11-14] MEDS: methylPREDNISolone sod succ 40 mg/mL INJ IVP (19:19)
[2023-11-14] MEDS: azithromycin 500 MG in sodium chloride 0.9% 250 ML 250 MG IV (19:19)
[2023-11-14] MEDS: HYDROmorphone 1 mg/mL INJ 1 mL 0.5 MG IVP (19:26)
[2023-11-14 20:00] LABS: Troponin 5 6HR 8.33 ng/L (0-10); Troponin 5 6HR Delta -5.67 ng/L (0-12)
[2023-11-14] MEDS: atorvastatin 40 mg Tablet PO (21:21)
[2023-11-14] MEDS: gabapentin 300 mg Capsule 600 MG PO (21:21)
[2023-11-14 21:37] LABS: Glucose Point of Care 242 mg/dL (70-110)
[2023-11-14] MEDS: insulin lispro 100 unit/1 mL SUBCUT (21:39)
[2023-11-14] MEDS: quetiapine XR (24HR) 50 mg Tablet 150 MG PO (21:39)
[2023-11-14] MEDS: HYDROmorphone 1 mg/mL INJ 1 mL IVP (23:15)
--- NOTE | 2023-11-14 23:43 | ECG_ITS ---
[facility] Test Date: 2023-11-14 Pat Name: Cyndi Baca Department: Room: [facility] Gender: Female Treating Inspector: : [id number] Requested By: Dheeraj Ortiz Order Number: [id number] Ramila MD: Jesse Linda M.D. Measurements Intervals Robinson Rate: 91 P: 36 IL: 179 QRS: -11 QRSD: 88 T: 64 QT: 356 QTc: 440 Interpretive Statements SINUS RHYTHM WITH OCCASIONAL VENTRICULAR PREMATURE COMPLEXES LOW QRS VOLTAGE IN PRECORDIAL LEADS [QRS DEFLECTION < 1.0 mV IN CHEST LEADS] NONSPECIFIC T-WAVE ABNORMALITY Compared to ECG 11/14/2023 17:00:14 T-wave abnormality now present Myocardial infarct finding no longer present Electronically Signed On 11-15-2023 16:30:08 CDT by Jesse Linda M.D. [id number]
[2023-11-15] VITALS (83 sets, daily range): BP systolic 99–172; BP diastolic 36–108; PULSE 66–114; RESP 11–28; TEMP 36.6–36.8; O2SAT 82–98
[2023-11-15] MEDS: guaiFENesin-dextromethorphan UDC 10 mL PO ×3 (02:25→17:55)
[2023-11-15] MEDS: methylPREDNISolone sod succ 40 mg/mL INJ IVP ×3 (02:25→17:54)
[2023-11-15] MEDS: morphine 4 mg/mL SDV 1 mL 2 MG IVP ×5 (02:25→21:55)
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
[2023-11-15] MEDS: meloxicam 7.5 mg tablet 15 MG PO (05:34)
[2023-11-15] MEDS: aspirin 81 mg Chew Tablet PO (05:34)
[2023-11-15 05:38] LABS: Basophils % 0.1 %; Hematocrit 41.9 % (36-47); Lymphocytes # 1.7 10^3/uL (0.8-4.8); Lymphocytes % 11.4 %; Mean Corpuscular HGB Conc 30.1 g/dL (30-55); Mean Corpuscular Hemoglobin 29.1 pg (27-33); Mean Corpuscular Volume 96.8 fl (85-98); Mean Platelet Volume 11.2 fL (7.4-10.4); Monocytes # 0.2 10^3/uL (0.2-0.9); Monocytes % 1.5 %; Neutrophils # 12.47 10^3/uL (1.8-7.7); Nucleated Red Blood Cells % 0 %; Platelet Count 192 10^3/cmm (157-399); Red Blood Count 4.33 10^6/uL (3.85-5.65); Red Cell Distribution Width 14.3 % (12.1-15.1); White Blood Count 14.51 10^3/uL (3.29-11.43)
[2023-11-15 06:00] LABS: Anion Gap 15.3 (5-19); Blood Urea Nitrogen 20 mg/dL (6-20); Calcium 8.8 mg/dL (8.5-10.5); Carbon Dioxide 28 mmol/L (22-29); Chloride 100 mmol/L (98-107); Creatinine Clr Calc Pharmacy 209.4953; Glomerular Filtration Rate 126.3 mL/min (90-130); Glucose 287 mg/dL (65-115); Magnesium 1.8 mg/dL (1.7-2.3); Osmolality Calculated 299 mOsm/kg (285-295); Potassium 5.3 mmol/L (3.5-5.1); Sodium 138 mmol/L (136-145)
[2023-11-15] MEDS: famotidine 20 mg/2 mL INJ IVP ×2 (06:32→17:54)
[2023-11-15] MEDS: ipratropium-albuterol 3 mL Neb INHALATION ×4 (07:33→20:03)
[2023-11-15 07:46] LABS: Glucose Point of Care 261 mg/dL (70-110)
[2023-11-15] MEDS: baclofen 10 mg Tablet 15 MG PO ×2 (07:55→17:54)
[2023-11-15] MEDS: gabapentin 300 mg Capsule 600 MG PO ×3 (07:56→21:03)
[2023-11-15] MEDS: duloxetine 30 mg Capsule PO (07:56)
[2023-11-15] MEDS: insulin lispro 100 unit/1 mL SUBCUT ×4 (07:56→21:02)
[2023-11-15] MEDS: insulin glargine 100 units/1 mL 10 UNIT SUBCUT (07:57)
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
--- NOTE | 2023-11-15 10:46 | PC.NURSE ---
The following contacts have been given permission to receive information: Vmy-Dw-Vdn-Zafar [phone] Boyfriend-Willis UnderwoodTfvrogx-[phone]
[2023-11-15] MEDS: ondansetron 2 mg/ML SDV 2 mL 4 MG IVP ×2 (10:49→21:43)
[2023-11-15] MEDS: nystatin cream 30 gm 1 APPLIC TOPICAL ×2 (10:49→17:54)
--- NOTE | 2023-11-15 11:33 | PM.PN ---
Subjective Subjective: No acute overnight events noted. She seen at bedside this morning. She feels better as compared to admission and was hoping if she can go home. Improved shortness of breath and she was on CPAP overnight. Medications: Reviewed: Yes Vitals/I&O/Wt Last Vital Signs Temp 98.2 F 11/15/23 08:00 Pulse 88 11/15/23 10:00 Resp 16 11/15/23 07:33 BP 119/70 11/15/23 10:00 Pulse Ox 92 11/15/23 10:00 O2 Del Method Nasal Cannula 11/15/23 07:33 O2 Flow Rate 6 11/15/23 07:33 FiO2 45 11/15/23 04:00 11/14/23 11/15/23 11/15/23 22:59 06:59 14:59 Intake Total 730 / 730 240 / 970 120 / 120 Output Total 550 / 550 Balance 180 / 180 240 / 420 120 / 120 Weight last 48 hrs Weight 164.2 kg Weight 164 kg Weight 158.757 kg Physical Exam Narrative: She is alert awake oriented x 3, morbidly obese, anxious, in moderate respiratory distress Chest air entry equal on both sides, clear to auscultation this morning Cardiovascular normal heart sounds Abdomen soft nontender nondistended normal bowel sounds Extremities bilateral 2+ pitting edema present lower extremity Data 11/15/23 05:05 11/15/23 05:05 A&P Assessment and plan (1) Acute exacerbation of chronic obstructive pulmonary disease (COPD): (2) Acute on chronic hypoxic respiratory failure: (3) Chronic hypercapnic respiratory failure: (4) BMI 45.0-49.9, adult: (5) Chronic respiratory failure with hypoxia: (6) Type 2 diabetes mellitus: Qualifiers: Diabetes mellitus retirement insulin use: without retirement use Diabetes mellitus complication status: with other specified complication Qualified Code(s): E11.69 - Type 2 diabetes mellitus with other specified complication (7) Neuropathic pain, leg, bilateral: (8) Osteoarthritis: (9) History of hypertension: (10) Chronic low back pain: Qualifiers: Back pain laterality: unspecified Sciatica presence: without sciatica Qualified Code(s): M54.5 - Low back pain; G89.29 - Other chronic pain (11) GERD without esophagitis: (12) IVELISSE (obstructive sleep apnea): (13) Dyslipidemia: Plan Cyndi A Masters is a 58 year old female with a past medical history of COPD, history of obstructive sleep apnea on CPAP, type 2 diabetes mellitus, hypertension, hyperlipidemia, chronic pain, who presents to [facility] for complaints of shortness of breath progressively worsening since yesterday, nonproductive cough and fever with Tmax of 101 ?F likely secondary to COPD exacerbation with acute on chronic hypoxic and hypercarbic respiratory failure. #Acute hypoxic and hypercarbic respiratory failure-secondary to COPD exacerbation WBC count of 14.0, ABG pH 7.3 with pCO2 of 51, repeat ABG pH of 7.2 with pCO2 of 60, respiratory panel negative DuoNebs every 6 hours IV Solu-Medrol 40 mg every 8 hours IV azithromycin 500 mg daily for 3 days. Continue BiPAP for now Mucinex 600 mg twice daily Syrup Robitussin 10 mL every 6 hours as needed Resume home medications Diet-cardio diabetic diet GI prophylaxis with IV Pepcid 20 mg twice daily DVT prophylaxis with subcutaneous Lovenox Pain control with IV morphine 2 mg every 4 hours as needed. 11/14--labs reviewed and are acceptable. Respiratory status improving. Will continue current management. Anticipating discharge in a.m. Attestations Medical Necessity Statement*: Respiratory failure resolving, will monitor for next 24 hours and anticipating discharge in a.m. Time Spent in Patient Care: 15 minutes Coding Level of Care Code Acute Code for Chg Fwd Diagnoses Acute exacerbation of chronic obstructive pulmonary disease (COPD) J44.1 Acute on chronic hypoxic respiratory failure J96.21 Chronic hypercapnic respiratory failure J96.12 BMI 45.0-49.9, adult Z68.42 Chronic respiratory failure with hypoxia J96.11 Type 2 diabetes mellitus with other specified complication, without long-term current use of insulin E11.69 Diabetes mellitus retirement insulin use: without retirement use Diabetes mellitus complication status: with other specified complication Neuropathic pain, leg, bilateral G57.93 Osteoarthritis M19.90 History of hypertension Z86.79 Chronic low back pain without sciatica, unspecified back pain laterality M54.5; G89.29 Back pain laterality: unspecified Sciatica presence: without sciatica GERD without esophagitis K21.9 IVELISSE (obstructive sleep apnea) G47.33 Dyslipidemia E78.5 Time Spent (min) 15
[2023-11-15 12:14] LABS: Glucose Point of Care 315 mg/dL (70-110)
[2023-11-15 16:00] LABS: Add Urine Microscopic? NO
[2023-11-15 16:04] LABS: Bilirubin Urine Negative (Negative); Blood Urine Negative (Negative); Glucose Urine UA 3+ (Normal); Ketones Urine Negative (Negative); Leukocyte Esterase Urine Negative (Negative); Nitrate Urine Negative (Negative); Protein Urine Negative (Negative); Urine Appearance Clear (CLEAR); Urine Color Yellow (Yellow)
[2023-11-15 17:05] LABS: Add Urine Culture? No; Charge for UA Resulting for Rev; Specific Gravity, Urine 1.036 (1.005-1.030)
[2023-11-15] MEDS: enoxaparin 40 mg/0.4 mL Syringe SUBCUT (17:55)
[2023-11-15 18:11] LABS: Glucose Point of Care 493 mg/dL (70-110)
[2023-11-15] MEDS: azithromycin 500 MG in sodium chloride 0.9% 250 ML 250 MG IV (18:15)
--- NOTE | 2023-11-15 19:24 | PC.NURSE ---
Pt crying from left hip pain. Pt stated she fell last month and fx hip. Currently awaiting hip replacement but must lose 100 lbs. Has lost 60 lbs. States she takes Morphine 30 mg TID and Hydros 10's TID. Home med bottles indicate different frequencies. Dr Walker notified. One time order received.
--- NOTE | 2023-11-15 19:34 | PC.NURSE ---
Importance of following dr ordered diet and portions with pt, daughter, and son in law. Daughter praised for considering healthy choices of meal options for pt, however pt continues to choose to eat both hospital provided food as well as food that family brings in. Educated all regarding meal choices and reasoning. Operator And Truck Driver order obtained. Noted pt's BG more elevated than previous two results when empty [employer] trash noticed on floor. Educated pt on importance of testing blood glucose prior to all meals and bedtime. Reiterated eating only one meal per mealtime instead of both. Informed daughter that dr will restrict outside food if pattern continues. Indicated understanding and agreed with meal management. Daughter also voiced concerns that pt craving nicotine to her. Pt has not mentioned to this nurse. Pt asked if Nicotine patch desired. Agreed. Order received.
[2023-11-15] MEDS: oxyCODONE-APAP 10-325 mg Tablet 1 TAB PO (19:59)
[2023-11-15 20:59] LABS: Glucose Point of Care 426 mg/dL (70-110)
[2023-11-15] MEDS: atorvastatin 40 mg Tablet PO (21:03)
[2023-11-15] MEDS: quetiapine XR (24HR) 50 mg Tablet 150 MG PO (21:23)
[2023-11-16] VITALS (35 sets, daily range): BP systolic 109–160; BP diastolic 67–105; PULSE 67–102; RESP 12–26; TEMP 36.6–36.9; O2SAT 92–100
[2023-11-16 00:22] LABS: Glucose Point of Care 318 mg/dL (70-110)
[2023-11-16 01:35] LABS: Glucose Point of Care 273 mg/dL (70-110)
[2023-11-16] MEDS: oxyCODONE-APAP 10-325 mg Tablet 1 TAB PO ×2 (01:38→17:13)
[2023-11-16] MEDS: insulin lispro 100 unit/1 mL 10 UNIT SUBCUT (01:38)
--- NOTE | 2023-11-16 01:43 | PC.NURSE ---
Contacted Dr. Oakes in reference to patients pain and blood glucose. POC BG was 273 and has been high throughout the shift thus far. Received orders for one time dose insulin per patient's current sliding scale. Pain rated as 8/10 aprox. 2 hour after morphine dose received. Received orders for one time dose Percocet PO, the second dose the patient has received that previously relieved the pain according to patient.
[2023-11-16 04:03] LABS: Basophils % 0.1 %; Hematocrit 37.3 % (36-47); Lymphocytes # 2.5 10^3/uL (0.8-4.8); Lymphocytes % 10.6 %; Mean Corpuscular HGB Conc 30.6 g/dL (30-55); Mean Corpuscular Hemoglobin 29.7 pg (27-33); Mean Corpuscular Volume 97.1 fl (85-98); Mean Platelet Volume 11.2 fL (7.4-10.4); Monocytes # 1.7 10^3/uL (0.2-0.9); Monocytes % 7.1 %; Neutrophils # 18.83 10^3/uL (1.8-7.7); Neutrophils % 81.3 %; Nucleated Red Blood Cells % 0 %; Platelet Count 181 10^3/cmm (157-399); Red Blood Count 3.84 10^6/uL (3.85-5.65); Red Cell Distribution Width 14.6 % (12.1-15.1); White Blood Count 23.18 10^3/uL (3.29-11.43)
[2023-11-16] MEDS: morphine 4 mg/mL SDV 1 mL 2 MG IVP ×4 (04:10→16:16)
[2023-11-16] MEDS: methylPREDNISolone sod succ 40 mg/mL INJ IVP ×2 (04:10→10:17)
[2023-11-16] MEDS: guaiFENesin-dextromethorphan UDC 10 mL PO ×3 (04:10→17:29)
[2023-11-16 04:24] LABS: Anion Gap 9.8 (5-19); Blood Urea Nitrogen 19 mg/dL (6-20); Calcium 8.6 mg/dL (8.5-10.5); Carbon Dioxide 30 mmol/L (22-29); Chloride 106 mmol/L (98-107); Creatinine Clr Calc Pharmacy 209.4953; Glomerular Filtration Rate 126.3 mL/min (90-130); Glucose 229 mg/dL (65-115); Osmolality Calculated 302 mOsm/kg (285-295); Potassium 4.8 mmol/L (3.5-5.1); Sodium 141 mmol/L (136-145)
[2023-11-16 04:33] LABS: Glucose Point of Care 187 mg/dL (70-110)
[2023-11-16] MEDS: aspirin 81 mg Chew Tablet PO (06:04)
[2023-11-16] MEDS: meloxicam 7.5 mg tablet 15 MG PO (06:04)
[2023-11-16] MEDS: famotidine 20 mg/2 mL INJ IVP ×2 (06:05→17:30)
[2023-11-16] MEDS: insulin glargine 100 units/1 mL 10 UNIT SUBCUT (06:06)
[2023-11-16] MEDS: gabapentin 300 mg Capsule 600 MG PO ×3 (08:27→20:38)
[2023-11-16] MEDS: baclofen 10 mg Tablet 15 MG PO ×2 (08:28→17:13)
[2023-11-16] MEDS: duloxetine 30 mg Capsule PO (08:29)
[2023-11-16] MEDS: ondansetron 2 mg/ML SDV 2 mL 4 MG IVP ×2 (08:36→17:23)
[2023-11-16] MEDS: nicotine 21 mg Patch 1 PATCH TRANSDERMA (08:36)
[2023-11-16] MEDS: ipratropium-albuterol 3 mL Neb INHALATION ×4 (08:47→19:41)
[2023-11-16 08:51] LABS: Glucose Point of Care 214 mg/dL (70-110)
[2023-11-16] MEDS: insulin lispro 100 unit/1 mL SUBCUT ×4 (09:16→21:01)
[2023-11-16 12:16] LABS: Glucose Point of Care 259 mg/dL (70-110)
[2023-11-16] MEDS: benzonatate 100 mg Capsule 200 MG PO (12:16)
[2023-11-16] MEDS: nystatin cream 30 gm 1 APPLIC TOPICAL ×2 (13:55→17:29)
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
--- NOTE | 2023-11-16 16:39 | PM.PN ---
Subjective Subjective: No acute overnight events noted. Seen her at bedside this morning. Complained of severe dry cough and bilateral subcostal pain due to coughing. Her back pain and hip pain resolved with 1 dose of p.o. Percocet 10/325 mg last evening. Medications: Reviewed: Yes Vitals/I&O/Wt Last Vital Signs Temp 98.3 F 11/16/23 15:22 Pulse 85 11/16/23 15:22 Resp 16 11/16/23 16:16 BP 109/71 11/16/23 15:22 Pulse Ox 95 11/16/23 15:22 O2 Del Method BiPAP 11/16/23 15:22 O2 Flow Rate 6 11/16/23 11:20 FiO2 45 11/16/23 15:09 11/16/23 11/16/23 11/16/23 06:59 14:59 22:59 Intake Total 800 / 1710 400 / 400 Output Total 750 / 2750 400 / 400 Balance 50 / -1040 0 / 0 Weight last 48 hrs Weight 165.51 kg Weight 164.2 kg Weight 164 kg Physical Exam Narrative: She is alert awake oriented x 3, morbidly obese, anxious, in moderate respiratory distress Chest air entry equal on both sides, bilateral coarse wheezing present Cardiovascular normal heart sounds Abdomen soft nontender nondistended normal bowel sounds Extremities bilateral 2+ pitting edema present lower extremity Data 11/16/23 03:32 11/16/23 03:32 A&P Assessment and plan (1) Acute exacerbation of chronic obstructive pulmonary disease (COPD): (2) Acute on chronic hypoxic respiratory failure: (3) Chronic hypercapnic respiratory failure: (4) BMI 45.0-49.9, adult: (5) Chronic respiratory failure with hypoxia: (6) Type 2 diabetes mellitus: Qualifiers: Diabetes mellitus retirement insulin use: without mitigation supervisor use Diabetes mellitus complication status: with other specified complication Qualified Code(s): E11.69 - Type 2 diabetes mellitus with other specified complication (7) Neuropathic pain, leg, bilateral: (8) Osteoarthritis: (9) History of hypertension: (10) Chronic low back pain: Qualifiers: Back pain laterality: unspecified Sciatica presence: without sciatica Qualified Code(s): M54.5 - Low back pain; G89.29 - Other chronic pain (11) GERD without esophagitis: (12) IVELISSE (obstructive sleep apnea): (13) Dyslipidemia: Anna Baca is a 58 year old female with a past medical history of COPD, history of obstructive sleep apnea on CPAP, type 2 diabetes mellitus, hypertension, hyperlipidemia, chronic pain, who presents to [facility] for complaints of shortness of breath progressively worsening since yesterday, nonproductive cough and fever with Tmax of 101 ?F likely secondary to COPD exacerbation with acute on chronic hypoxic and hypercarbic respiratory failure. #Acute hypoxic and hypercarbic respiratory failure-secondary to COPD exacerbation WBC count of 14.0, ABG pH 7.3 with pCO2 of 51, repeat ABG pH of 7.2 with pCO2 of 60, respiratory panel negative DuoNebs every 6 hours IV Solu-Medrol 40 mg every 8 hours IV azithromycin 500 mg daily for 3 days. Continue BiPAP for now Mucinex 600 mg twice daily Syrup Robitussin 10 mL every 6 hours as needed Resume home medications Diet-cardio diabetic diet GI prophylaxis with IV Pepcid 20 mg twice daily DVT prophylaxis with subcutaneous Lovenox Pain control with IV morphine 2 mg every 4 hours as needed. 11/14--labs reviewed and are acceptable. Respiratory status improving. Will continue current management. Anticipating discharge in a.m. 11/15--leukocytosis worsening to 23.18. Chest examination showed bilateral wheezing. Will continue IV azithromycin and steroids. Add IV ceftriaxone 1 g daily. Will do p.o. Percocet 10/325 mg twice daily scheduled. Add Tessalon Perles 200 mg 3 times daily as needed. Continue to monitor Attestations Medical Necessity Statement*: Respiratory failure resolving, will monitor for now since worsening leukocytosis and chest examination and cough. Time Spent in Patient Care: 15 minutes Coding Level of Care Code Acute Code for Chg Fwd Diagnoses Acute exacerbation of chronic obstructive pulmonary disease (COPD) J44.1 Acute on chronic hypoxic respiratory failure J96.21 Chronic hypercapnic respiratory failure J96.12 BMI 45.0-49.9, adult Z68.42 Chronic respiratory failure with hypoxia J96.11 Type 2 diabetes mellitus with other specified complication, without long-term current use of insulin E11.69 Diabetes mellitus retirement insulin use: without mitigation supervisor use Diabetes mellitus complication status: with other specified complication Neuropathic pain, leg, bilateral G57.93 Osteoarthritis M19.90 History of hypertension Z86.79 Chronic low back pain without sciatica, unspecified back pain laterality M54.5; G89.29 Back pain laterality: unspecified Sciatica presence: without sciatica GERD without esophagitis K21.9 IVELISSE (obstructive sleep apnea) G47.33 Dyslipidemia E78.5 Time Spent (min) 15
[2023-11-16 17:03] LABS: Glucose Point of Care 343 mg/dL (70-110)
[2023-11-16] MEDS: metformin 500 mg Tablet 1000 MG PO (17:12)
[2023-11-16] MEDS: levofloxacin-dextrose 5 % 750 MG/150 ML PREMIX 100 MG IV (17:20)
[2023-11-16] MEDS: methylPREDNISolone sod succ 125 mg/2 mL INJ 80 MG IVP (17:23)
[2023-11-16] MEDS: enoxaparin 40 mg/0.4 mL Syringe SUBCUT (17:29)
[2023-11-16] MEDS: azithromycin 500 MG in sodium chloride 0.9% 250 ML 250 MG IV (17:29)
--- NOTE | 2023-11-16 18:07 | PC.NURSE ---
Patient crying out and stating she is in a 10/10 pain in her back and her ribs. She also complained of under her breast hurting. Notified the physician.
[2023-11-16] MEDS: quetiapine XR (24HR) 50 mg Tablet 150 MG PO (20:37)
[2023-11-16] MEDS: atorvastatin 40 mg Tablet PO (20:38)
[2023-11-16 20:44] LABS: Glucose Point of Care 320 mg/dL (70-110)
[2023-11-16] MEDS: morphine ER (12 HR) 30 mg tablet PO (21:01)
[2023-11-17 01:26] VITALS: RESP 16; O2SAT 92
[2023-11-17] MEDS: oxyCODONE-APAP 5-325 mg Tablet 1 TAB PO (01:26)
[2023-11-17] MEDS: methylPREDNISolone sod succ 125 mg/2 mL INJ 80 MG IVP ×2 (01:27→07:52)
[2023-11-17 01:32] LABS: Glucose Point of Care 271 mg/dL (70-110)
[2023-11-17] MEDS: guaiFENesin-dextromethorphan UDC 10 mL PO (02:47)
[2023-11-17 04:00] VITALS: BP 145/79; PULSE 64; RESP 17; TEMP 36.5; O2SAT 92
[2023-11-17] MEDS: ondansetron 2 mg/ML SDV 2 mL 4 MG IVP (04:18)
[2023-11-17] MEDS: benzonatate 100 mg Capsule 200 MG PO (05:13)
[2023-11-17 05:29] LABS: Basophils % 0.2 %; Hematocrit 41.4 % (36-47); Lymphocytes # 1.6 10^3/uL (0.8-4.8); Lymphocytes % 8.9 %; Mean Corpuscular HGB Conc 30.2 g/dL (30-55); Mean Corpuscular Hemoglobin 29.5 pg (27-33); Mean Corpuscular Volume 97.6 fl (85-98); Mean Platelet Volume 11.5 fL (7.4-10.4); Monocytes # 0.6 10^3/uL (0.2-0.9); Neutrophils # 15.76 10^3/uL (1.8-7.7); Neutrophils % 85.7 %; Nucleated Red Blood Cells % 0 %; Platelet Count 196 10^3/cmm (157-399); Red Blood Count 4.24 10^6/uL (3.85-5.65); Red Cell Distribution Width 14.6 % (12.1-15.1); White Blood Count 18.39 10^3/uL (3.29-11.43)
[2023-11-17] MEDS: meloxicam 7.5 mg tablet 15 MG PO (05:32)
[2023-11-17] MEDS: insulin glargine 100 units/1 mL 20 UNIT SUBCUT (05:32)
[2023-11-17] MEDS: aspirin 81 mg Chew Tablet PO (05:32)
[2023-11-17 05:58] LABS: Anion Gap 12.9 (5-19); Blood Urea Nitrogen 21 mg/dL (6-20); Calcium 9.2 mg/dL (8.5-10.5); Carbon Dioxide 31 mmol/L (22-29); Chloride 103 mmol/L (98-107); Creatinine Clr Calc Pharmacy 180.5075; Glomerular Filtration Rate 102.3 mL/min (90-130); Glucose 248 mg/dL (65-115); Magnesium 2.1 mg/dL (1.7-2.3); Osmolality Calculated 305 mOsm/kg (285-295); Potassium 4.9 mmol/L (3.5-5.1); Sodium 142 mmol/L (136-145)
[2023-11-17 06:00] VITALS: PULSE 78
[2023-11-17 06:20] LABS: Glucose Point of Care 260 mg/dL (70-110)
[2023-11-17] MEDS: famotidine 20 mg/2 mL INJ IVP (06:26)
--- NOTE | 2023-11-17 07:07 | XR_ITS ---
WS: [id number] Exam: XR chest 1V portable [id number] Date/Time of Exam: 11/17/2023 7:13 AM Reason For Exam: COPD Comparison 11/14/2023. Lungs are fully expanded and clear. Mild cardiac enlargement unchanged. No pleural effusions. Regiona l bony elements are intact. The mediastinum is normal in contour for technique. XR/XR chest 1V portable [id number] IMPRESSION: 1. Mild cardiac enlargement. No acute process.
[2023-11-17] MEDS: HYDROmorphone 1 mg/mL INJ 1 mL 0.5 MG IVP (07:39)
[2023-11-17] MEDS: duloxetine 30 mg Capsule PO (07:51)
[2023-11-17] MEDS: gabapentin 300 mg Capsule 600 MG PO (07:51)
[2023-11-17] MEDS: metformin 500 mg Tablet 1000 MG PO (07:51)
[2023-11-17] MEDS: baclofen 10 mg Tablet 15 MG PO (07:51)
[2023-11-17] MEDS: nicotine 21 mg Patch 1 PATCH TRANSDERMA (07:52)
[2023-11-17] MEDS: morphine ER (12 HR) 30 mg tablet PO (07:52)
[2023-11-17] MEDS: insulin lispro 100 unit/1 mL SUBCUT (07:53)
[2023-11-17 08:00] VITALS: BP 165/80; PULSE 74; PULSE 77; RESP 18; RESP 19; TEMP 36.3; O2SAT 98
[2023-11-17] MEDS: ipratropium-albuterol 3 mL Neb INHALATION (08:09)
[2023-11-17 08:10] VITALS: PULSE 67
--- NOTE | 2023-11-17 08:50 | PM.DCS ---
Discharge Providers Date of Admission: 11/14/23 18:48 Date of Discharge: November 17, 2023 Attending Provider at Admission: Denise Walker MD Attending Provider at Discharge: Denise Walker MD Primary Care Provider: Robbie Burrell MD Diagnoses at Discharge Discharge Diagnosis (1) Acute exacerbation of chronic obstructive pulmonary disease (COPD): Status: Acute (2) Acute on chronic hypoxic respiratory failure: Status: Acute (3) Chronic hypercapnic respiratory failure: Status: Acute (4) BMI 45.0-49.9, adult: Status: Acute (5) Chronic respiratory failure with hypoxia: Status: Acute (6) Type 2 diabetes mellitus: Status: Acute Qualifiers: Diabetes mellitus exterminator helper insulin use: without exterminator helper use Diabetes mellitus complication status: with other specified complication Qualified Code(s): E11.69 - Type 2 diabetes mellitus with other specified complication (7) Neuropathic pain, leg, bilateral: Status: Acute (8) Osteoarthritis: Status: Acute (9) History of hypertension: Status: Acute (10) Chronic low back pain: Status: Acute Qualifiers: Back pain laterality: unspecified Sciatica presence: without sciatica Qualified Code(s): M54.5 - Low back pain; G89.29 - Other chronic pain (11) GERD without esophagitis: Status: Acute (12) IVELISSE (obstructive sleep apnea): Status: Acute (13) Dyslipidemia: Status: Acute Reason for Visit Reason for Visit: HIP PAIN, SOB, POSS UTI Brief History: Cyndi Baca is a 58 year old female with a past medical history of COPD, history of obstructive sleep apnea on CPAP, type 2 diabetes mellitus, hypertension, hyperlipidemia, chronic pain, who presents to [facility] for complaints of shortness of breath progressively worsening since yesterday, nonproductive cough and fever with Tmax of 101 ?F. She had recent hospitalization for pneumonia, acute on chronic hypoxic and hypercarbic respiratory failure and COPD exacerbation and was discharged on 11/02 with p.o. antibiotics Levaquin for 7 days and steroid taper. Denies any history of sick contact or recent travel. Denies complaint of chest pain, palpitations, dizziness, diarrhea or urinary complaints. Hospital Course Hospital Course #Acute hypoxic and hypercarbic respiratory failure-secondary to COPD exacerbation WBC count of 14.0, ABG pH 7.3 with pCO2 of 51, repeat ABG pH of 7.2 with pCO2 of 60, respiratory panel negative DuoNebs every 6 hours IV Solu-Medrol 40 mg every 8 hours IV azithromycin 500 mg daily for 3 days. Continue BiPAP for now Mucinex 600 mg twice daily Syrup Robitussin 10 mL every 6 hours as needed Resume home medications 11/14--labs reviewed and are acceptable. Respiratory status improving. Will continue current management. Anticipating discharge in a.m. 11/15--leukocytosis worsening to 23.18. Chest examination showed bilateral wheezing. Will continue IV azithromycin and steroids. Add IV ceftriaxone 1 g daily. Will do p.o. Percocet 10/325 mg twice daily scheduled. Add Tessalon Perles 200 mg 3 times daily as needed. Continue to monitor 11/16--Leukocytosis improved to 18.3. Likely secondary to steroids. Had started levofloxacin IV yesterday. Chest examination clear at this morning. Chest x-ray today did not show any acute findings. She is doing well and feeling well. Will discharge her home to be followed up with PCP in 1 week. Physical Exam Narrative: She is alert awake oriented x 3, morbidly obese, anxious, in moderate respiratory distress Chest air entry equal on both sides, bilateral baseline wheezing present Cardiovascular normal heart sounds Abdomen soft nontender nondistended normal bowel sounds Extremities bilateral 2+ pitting edema present lower extremity Discharge Data Studies Completed and Pending Completed Studies During Hospitalization Category Date Time Status CT angio chest PE protcl [id number] Stat Cat Scan 11/14/23 14:51 Completed XR chest 1V portable [id number] Stat Exams 11/14/23 13:09 Completed XR chest 1V portable [id number] Stat Exams 11/17/23 07:07 Completed Radiology Impressions Chest CTA 11/14/23 14:51 IMPRESSION: 1. No central pulmonary emboli. Evaluation for emboli within the more distal segmental and subsegmental pulmonary arteries is limited by timing of contrast. 2. Scattered hypoventilatory changes with areas of air trapping appears more pronounced than prior. Findings may be related to chronic small airways disease. 3. Similar markedly dilated main pulmonary artery which can be seen with pulmonary hypertension. 4. Hepatic steatosis. 5. Similar asymmetric enlargement of the right thyroid lobe. Chest X-Ray 11/17/23 07:07 IMPRESSION: 1. Mild cardiac enlargement. No acute process. Laboratory Results WBC 18.39 10^3/uL (3.29-11.43) H 10/03/24 04:43 RBC 4.24 10^6/uL (3.85-5.65) 11/17/23 04:43 Hgb 12.50 g/dL (11.27-16.99) 11/17/23 04:43 Hct 41.4 % (36-47) 11/17/23 04:43 MCV 97.6 fl (85-98) 11/17/23 04:43 MCH 29.5 pg (27-33) 11/17/23 04:43 MCHC 30.2 g/dL (30-55) 11/17/23 04:43 RDW 14.6 % (12.1-15.1) 11/17/23 04:43 Plt Count 196 10^3/cmm (157-399) 11/17/23 04:43 MPV 11.5 fL (7.4-10.4) H 11/17/23 04:43 Neut % (Auto) 85.7 % 11/17/23 04:43 Lymph % (Auto) 8.9 % 11/17/23 04:43 Whitley % (Auto) 3.0 % 11/17/23 04:43 Eos % (Auto) 0.0 % 11/17/23 04:43 Baso % (Auto) 0.2 % 11/17/23 04:43 Neut # (Auto) 15.76 10^3/uL (1.8-7.7) H 11/17/23 04:43 Lymph # (Auto) 1.6 10^3/uL (0.8-4.8) 11/17/23 04:43 [place]ley # (Auto) 0.6 10^3/uL (0.2-0.9) 11/17/23 04:43 Eos # (Auto) 0.0 10^3/uL (0.0-0.8) 11/17/23 04:43 Baso # (Auto) 0.0 10^3/uL (0.0-0.1) 11/17/23 04:43 Nucleated RBC % (auto) 0 % 11/17/23 04:43 Nucleated RBCs # 0.0 /100WBC 11/17/23 04:43 Specimen Type Arterial 11/14/23 17:50 Sample Site Radial, right 11/14/23 17:50 ABG pH 7.27 (7.35-7.45) L 11/14/23 17:50 ABG pCO2 60.1 mmHg (35-45) H* 11/14/23 17:50 ABG pO2 78.7 mmHg (80.0-100.0) L 11/14/23 17:50 ABG PO2/FiO2 Ratio 245 11/14/23 17:50 ABG HCO3 27.4 mmol/L (22-26) H 11/14/23 17:50 ABG O2 Saturation 95.3 11/14/23 17:50 ABG Base Excess -0.7 mmol/L (-2.0-2.0) 11/14/23 17:50 Cameron Test Pos 11/14/23 17:50 A-a O2 Gradient 9.8 mmHg (5-10) 11/14/23 17:50 Hematocrit 41.0 % (37-47) 11/14/23 17:50 Hgb O2 Saturation 90.1 % (95-100) L 11/14/23 17:50 Carboxyhemoglobin 4.4 %THgb (0.4-20.1) 11/14/23 17:50 Methemoglobin 1.0 % (0.4-1.5) 11/14/23 17:50 Total Hemoglobin 13.4 g/dL (12-16) 11/14/23 17:50 Sodium 140.0 mmol/L (131-143) 11/14/23 17:50 Potassium 4.8 mmol/L (3.5-5.0) 11/14/23 17:50 Glucose 215.0 mg/dL (70-115) H 11/14/23 17:50 Ionized Calcium 1.3 mmol/L (1.1-1.4) 11/14/23 17:50 O2 Delivery Device Nc 11/14/23 17:50 O2 Liters/Min 3.0 % 11/14/23 17:50 FiO2 32.0 % 11/14/23 17:50 Station Superintendent ID Gd 11/14/23 17:50 Sodium 142 mmol/L (136-145) 11/17/23 04:43 Potassium 4.9 mmol/L (3.5-5.1) 11/17/23 04:43 Chloride 103 mmol/L (98-107) 11/17/23 04:43 Carbon Dioxide 31 mmol/L (22-29) H 11/17/23 04:43 Anion Gap 12.9 (5-19) 11/17/23 04:43 BUN 21 mg/dL (6-20) H 11/17/23 04:43 Creatinine 0.6 mg/dL (0.5-0.9) 11/17/23 04:43 GFR Calculation 102.3 mL/min (90-130) 11/17/23 04:43 Glucose 248 mg/dL (65-115) H 11/17/23 04:43 POC Glucose 260 mg/dL (70-110) H 11/17/23 06:11 Calculated Osmolality 305 mOsm/kg (285-295) H 11/17/23 04:43 Calcium 9.2 mg/dL (8.5-10.5) 11/17/23 04:43 Magnesium 2.1 mg/dL (1.7-2.3) 11/17/23 04:43 Total Bilirubin 0.2 mg/dL (0.15-1.2) 11/14/23 13:19 AST 37 U/L (0-32) H 11/14/23 13:19 ALT 16 U/L (0-33) 11/14/23 13:19 Alkaline Phosphatase 67 U/L (35-105) 11/14/23 13:19 Troponin T Baseline 14 ng/L (0-10) H 11/14/23 13:19 Troponin T 120 Minute 12.65 ng/L (0-10) H 11/14/23 15:09 Delta Troponin T -1.35 ABS# (0-10) L 11/14/23 15:09 Troponin T Hi Sens 6Hr 8.33 ng/L (0-10) 11/14/23 19:31 Troponin T Hi Sens 6Hr Delta -5.67 ng/L (0-12) L 11/14/23 19:31 Total Protein 6.7 g/dL (6.6-8.7) 11/14/23 13:19 Albumin 3.7 g/dL (3.5-5.2) 11/14/23 13:19 Globulin 3.0 g/dL (1.3-4.6) 11/14/23 13:19 Urine Color Yellow (Yellow) 11/15/23 15:50 Urine Appearance Clear (CLEAR) 11/15/23 15:50 Urine pH 5.0 (5-7) 11/15/23 15:50 Ur Specific [place] 1.036 (1.005-1.030) H 11/15/23 15:50 Urine Protein Negative (Negative) 11/15/23 15:50 Urine Glucose (UA) 3+ (Normal) H 11/15/23 15:50 Urine Ketones Negative (Negative) 11/15/23 15:50 Urine Blood Negative (Negative) 11/15/23 15:50 Urine Nitrate Negative (Negative) 11/15/23 15:50 Urine Bilirubin Negative (Negative) 11/15/23 15:50 Urine Urobilinogen 1.0 mg/dL (Negative) 11/15/23 15:50 Ur Leukocyte Esterase Negative (Negative) 11/15/23 15:50 Amorphous Sediment Not Reportable 11/15/23 15:50 Coronavirus (PCR) Negative (Negative) 11/14/23 13:49 Influenza A (PCR) Negative (Negative) 11/14/23 13:49 Influenza Type B (PCR) Negative (Negative) 11/14/23 13:49 RSV (PCR) Negative (Negative) 11/14/23 13:49 Vitals Last Vital Signs Temp 97.7 F 11/17/23 04:00 Pulse 67 11/17/23 08:10 Resp 18 11/17/23 08:00 BP 145/79 11/17/23 04:00 Pulse Ox 98 11/17/23 08:00 O2 Del Method Nasal Cannula 11/17/23 08:00 O2 Flow Rate 6 11/17/23 08:00 FiO2 45 11/16/23 15:09 Discharge Plan Discharge Patient Disposition: Home Condition: Stable Prescriptions: New oxycodone-acetaminophen 5-325 mg Tablet 1 tab PO Q6H PRN (Reason: Moderate Pain) 7 Days Qty: 20 0RF levofloxacin 500 mg tablet 500 mg PO DAILY 5 Days Qty: 5 0RF prednisone 10 mg tablet 10 mg PO DIRECTED Qty: 60 0RF Rx Instructions: see taper instructions 60mg for 2 days, 50mg for 2 days, 40mg for 2 days, 30mg for 2 days, 20mg for 2 days. 10mg for 2 days Continued naloxone [Narcan] 4 mg/actuation spray,non-aerosol 4 mg intranasal Q2M PRN (Reason: opioid overdose) Qty: 2 0RF Rx Instructions: spray 1 dose into ONE nostril; alternate nostrils w each dose morphine [MS Contin] 30 mg tablet extended release 30 mg PO Q12H 30 Days Qty: 60 0RF Rx Instructions: do not fill before fill date albuterol sulfate 90 mcg/actuation HFA aerosol inhaler 2 puff inhalation Q6H PRN (Reason: shortness of breath or wheezing) Qty: 8.5 3RF aspirin 81 mg tablet,chewable 81 mg PO QAM Qty: 60 0RF Lipitor 40 mg tablet 40 mg PO BEDTIME Qty: 90 1RF famotidine 20 mg tablet See Rx Instructions .ROUTE .COMPLEX Qty: 60 1RF Dose Instruction: TAKE 1 TABLET BY MOUTH TWICE A DAY Rx Instructions: TAKE 1 TABLET BY MOUTH TWICE A DAY fluticasone propion-salmeterol [Advair Diskus] 250-50 mcg/dose blister with device See Rx Instructions .ROUTE .COMPLEX Qty: 60 3RF Dose Instruction: TAKE 1 PUFF BY MOUTH TWICE A DAY Rx Instructions: TAKE 1 PUFF BY MOUTH TWICE A DAY glipizide 10 mg tablet See Rx Instructions .ROUTE .COMPLEX Qty: 90 0RF Dose Instruction: TAKE 1 TABLET BY MOUTH EVERY DAY Rx Instructions: TAKE 1 TABLET BY MOUTH EVERY DAY insulin glargine [Lantus Solostar U-100 Insulin] 100 unit/mL (3 mL) insulin pen 10 unit SUBCUT QAM Qty: 15 2RF tiotropium bromide [Spiriva with HandiHaler] 18 mcg capsule, w/inhalation device 1 cap inhalation DAILY Qty: 60 6RF Rx Instructions: puncture 1 cap using device; one dose = 2 inhalations baclofen 15 mg tablet 15 mg PO BID Qty: 60 2RF gabapentin 600 mg tablet See Rx Instructions .ROUTE .COMPLEX Qty: 90 0RF Dose Instruction: TAKE 1 TABLET BY MOUTH THREE TIMES DAILY Rx Instructions: TAKE 1 TABLET BY MOUTH THREE TIMES DAILY duloxetine 30 mg capsule,delayed release(DR/EC) See Rx Instructions .ROUTE .COMPLEX Qty: 30 0RF Dose Instruction: Take 1 capsule by mouth once daily Rx Instructions: Take 1 capsule by mouth once daily meloxicam 15 mg tablet See Rx Instructions .ROUTE .COMPLEX Qty: 60 0RF Dose Instruction: TAKE 1 TABLET BY MOUTH IN THE MORNING Rx Instructions: TAKE 1 TABLET BY MOUTH IN THE MORNING quetiapine [Seroquel XR] 150 mg tablet extended release 24 hr See Rx Instructions .ROUTE .COMPLEX Qty: 30 0RF Dose Instruction: TAKE 1 TABLET BY MOUTH AT BEDTIME Rx Instructions: TAKE 1 TABLET BY MOUTH AT BEDTIME metformin 500 mg tablet 1,000 mg PO BID Qty: 180 1RF promethazine 25 mg tablet See Rx Instructions .ROUTE .COMPLEX Qty: 30 0RF Dose Instruction: TAKE 1 TABLET BY MOUTH THREE TIMES DAILY NEEDED FOR NAUSEA AND VOMITING Rx Instructions: TAKE 1 TABLET BY MOUTH THREE TIMES DAILY NEEDED FOR NAUSEA AND VOMITING ipratropium-albuterol 0.5 mg-3 mg(2.5 mg base)/3 mL solution for nebulization 3 ml inhalation Q6H Qty: 180 5RF Robitussin Cough-Sore Throat 325-10 mg/10 mL liquid 20 ml PO Q4H PRN (Reason: cold symptoms) Qty: 237 0RF hydrocodone-acetaminophen 5-325 mg tablet 1 tab PO Q6H PRN (Reason: pain) Qty: 14 0RF Discontinued prednisone 10 mg tablet See Taper PO DIRECTED Qty: 42 0RF Taper: predniSONE 60-10 60 mg Daily for 2 Days and 0 Hour 50 mg Daily for 2 Days and 0 Hour 40 mg Daily for 2 Days and 0 Hour 30 mg Daily for 2 Days and 0 Hour 20 mg Daily for 2 Days and 0 Hour 10 mg Daily for 2 Days and 0 Hour Rx Instructions: see taper instructions No Action (DME) manual wheelchair See Rx Instructions .Route .MEDSUPPLY Qty: 1 0RF Rx Instructions: As directed (DME) TENS unit and equipment See Rx Instructions .Route .MEDSUPPLY Qty: 1 0RF Rx Instructions: As directed (DME) Left wrist brace See Rx Instructions .Route .MEDSUPPLY Qty: 1 0RF Rx Instructions: As directed (DME) lancets Misc See Rx Instructions .Route Qty: 100 0RF Rx Instructions: As directed (DME) lancets Misc See Rx Instructions .MEDSUPPLY Qty: 200 12RF Rx Instructions: Use as directed to prick skin for blood sugar checks (DME) motorized electric scooter See Rx Instructions .Route .MEDSUPPLY Qty: 1 0RF Rx Instructions: As directed (DME) Blood Glucose Test Strip See Rx Instructions .MEDSUPPLY Qty: 200 12RF Rx Instructions: Use as directed with glucometer to check blood sugar (DME) lancets Misc See Rx Instructions .MEDSUPPLY Qty: 200 12RF Rx Instructions: Use as directed to prick skin for blood sugar checks (DME) Dexcom G7 [place] Misc See Rx Instructions .Route Qty: 1 3RF Rx Instructions: As directed (DME) dexcom G7 transmitter See Rx Instructions .Route .MEDSUPPLY Qty: 1 2RF Rx Instructions: As directed (DME) wheelchair See Rx Instructions .Route .MEDSUPPLY Qty: 1 0RF Rx Instructions: As directed (DME) CPAP 6-16cm setting See Rx Instructions .ROUTE .MEDSUPPLY Qty: 1 0RF Rx Instructions: As directed (DME) CPAP mask, tubing, supplies See Rx Instructions .ROUTE .MEDSUPPLY Qty: 1 1RF Rx Instructions: As directed (DME) Blood Glucose Test Strip See Rx Instructions .MEDSUPPLY Qty: 200 12RF Rx Instructions: Use as directed with glucometer to check blood sugar (DME) pen needle, diabetic [Pen Needle] 30 gauge x 5/16 needle See Rx Instructions .MEDSUPPLY Qty: 100 12RF Rx Instructions: Use as directed for insulin administration (DME) Dexcom G7 Sensor Device See Rx Instructions .Route Qty: 2 3RF Rx Instructions: As directed Discharge Orders: Discharge Order (Routine); Ordered 11/17/23 Ordered By: Denise Walker Referrals: Robbie Burrell MD [Primary Care Provider] - Discharge Diet: Cardiac Discharge Activity: Increase activity as tolerated Patient Instructions: Opioid Safety, Pain Management Discharge Attestations Time Spent in Discharge Care*: less than 30 min Time Spent in Smoking Cessation: 3 to 10 minutes Advice to go cold turkey, recommended for nicotine patches, patient to discuss with her PCP. Quality Metrics Clinical Quality Measures [ No reported AMI, CVA or VTE this stay] Coding Level of Care Code Acute Code for Chg Fwd Diagnoses Acute exacerbation of chronic obstructive pulmonary disease (COPD) J44.1 Acute on chronic hypoxic respiratory failure J96.21 Chronic hypercapnic respiratory failure J96.12 BMI 45.0-49.9, adult Z68.42 Chronic respiratory failure with hypoxia J96.11 Type 2 diabetes mellitus with other specified complication, without long-term current use of insulin E11.69 Diabetes mellitus exterminator helper insulin use: without exterminator helper use Diabetes mellitus complication status: with other specified complication Neuropathic pain, leg, bilateral G57.93 Osteoarthritis M19.90 History of hypertension Z86.79 Chronic low back pain without sciatica, unspecified back pain laterality M54.5; G89.29 Back pain laterality: unspecified Sciatica presence: without sciatica GERD without esophagitis K21.9 IVELISSE (obstructive sleep apnea) G47.33 Dyslipidemia E78.5 Time Spent (min) 20
[2023-11-17] MEDS: nystatin cream 30 gm 1 APPLIC TOPICAL (09:44)
[2023-11-17 10:24] VITALS: PULSE 67
--- NOTE | 2023-11-17 10:42 | PC.NURSE ---
[facility] called patient when RT discovered mask and circuit for bi-pap missing. patient stated she did take the mask and circuit home. explained the danger of the mask and circuit and that it will not safely connect to a home bi-pap machine. patient and daughter confirmed understanding and stated they would throw mask and circuit away. Madyson CABRERA did a follow-up call with patient to reiterate dangers patient and daughter confirmed understanding and that they will throw away.
== END 2023-11-17 10:20 | disposition home or self-care (01) | DRG 190 ==
LOC: ER 18:57 → ICU 20:16 → MEDSURG 11-16 15:36
PROVIDERS: Admitting Provider Internal Medicine; Emergency Provider Family Medicine; PCP Family Medicine; Visit Provider Internal Medicine
DX: J44.1 Chronic obstructive pulmonary disease with (acute) exacerbation (principal); J96.21 Acute and chronic respiratory failure with hypoxia; J96.22 Acute and chronic respiratory failure with hypercapnia; Z99.81 Dependence on supplemental oxygen; Z79.82 Long term (current) use of aspirin; Z79.4 Long term (current) use of insulin; Z79.84 Long term (current) use of oral hypoglycemic drugs; M06.9 Rheumatoid arthritis, unspecified; Z86.73 Personal history of transient ischemic attack (TIA), and cerebral infarction without residual deficits; Z87.01 Personal history of pneumonia (recurrent); F31.9 Bipolar disorder, unspecified; I10 Essential (primary) hypertension; F17.210 Nicotine dependence, cigarettes, uncomplicated; G47.33 Obstructive sleep apnea (adult) (pediatric); E11.40 Type 2 diabetes mellitus with diabetic neuropathy, unspecified; E78.5 Hyperlipidemia, unspecified; G89.29 Other chronic pain; M54.50 Low back pain, unspecified
CPT/HCPCS: 0241U; 36415; 36416; 36600; 71045; 71275; 80048; 80051; 80053; 81003; 82330; 82805; 82962; 83735; 84484; 85025; 93005; 94640; 94660; 94664; 96372; 96374; 96375; 96376; 99285; J0456; J1100; J1170; J1650; J1815; J1956; J2270; J2405; J2919; J3490; J7050

== ENCOUNTER 2023-11-23 18:48 | Emergency (ER) | payer MEDICAID, SELFPAY ==
[2023-11-23] VITALS (8 sets, daily range): BP systolic 125–165; BP diastolic 82–106; PULSE 95–110; RESP 20–28; TEMP 36.9; O2SAT 95–98; BMI 56.5
--- NOTE | 2023-11-23 18:59 | ED_ITS ---
HPI - General Adult 2 General: Chief complaint: General Medical Stated complaint: High BS Time Seen by Provider: 11/23/23 18:51 History of Present Illness: Patient presents to the ER with complaints of high blood sugar. Patient's blood sugars approximately 403 at home. Patient is on steroids and antibiotics for walking pneumonia. Patient has a left hip fracture that she is trying to lose weight so they will replace her hip. She has lost approximately 60 pounds recently. She is currently on 25 units of long-acting insulin daily. Related Data Previous Rx's Medication Instructions Recorded manual wheelchair #1 ea 10/03/19 TENS unit and equipment #1 ea 10/01/22 wheelchair #1 ea 10/14/22 CPAP 6-16cm setting #1 ea 11/23/22 CPAP mask, tubing, supplies #1 ea 11/23/22 Left wrist brace #1 ea 12/06/22 lancets #100 ea 01/24/23 lancets #200 ea 02/21/23 motorized electric scooter #1 ea 02/21/23 blood sugar diagnostic (Blood #200 ea 03/04/23 Glucose Test strips) blood sugar diagnostic (Blood #200 ea 03/16/23 Glucose Test strips) lancets #200 ea 03/16/23 naloxone 4 mg/actuation nasal 4 mg intranasal Q2M PRN opioid 03/16/23 spray (Narcan) overdose #2 ea pen needle, diabetic 30 gauge x #100 ea 03/17/23 5/16 (Pen Needle) morphine 30 mg tablet,extended 30 mg PO Q12H pain 30 days #60 tabs 06/01/23 release (MS Contin) blood-glucose meter,continuous #1 ea 07/29/23 (Dexcom G7 [employer]) dexcom G7 transmitter #1 ea 07/29/23 albuterol sulfate 90 mcg/actuation 2 puff inhalation Q6H PRN 08/17/23 aerosol inhaler shortness of breath or wheezing #8.5 grams aspirin 81 mg chewable tablet 81 mg PO QAM #60 tabs 08/17/23 atorvastatin 40 mg tablet (Lipitor) 40 mg PO BEDTIME #90 tabs 08/17/23 fluticasone 250 mcg-salmeterol 50 See Rx Instructions .Route 08/17/23 mcg/dose blistr powdr for .COMPLEX #60 ea inhalation (Advair Diskus) glipizide 10 mg tablet See Rx Instructions .Route 08/17/23 .COMPLEX #90 tabs insulin glargine 100 unit/mL (3 10 unit (0.1 mL) SUBCUT QAM #15 mL 08/17/23 mL) subcutaneous pen (Lantus Solostar U-100 Insulin) tiotropium bromide 18 mcg capsule 1 cap inhalation DAILY #60 08/17/23 with inhalation device (Spiriva inhalations with HandiHaler) baclofen 15 mg tablet 15 mg PO BID #60 tabs 08/30/23 hydrocodone 5 mg-acetaminophen 325 1 tab PO Q6H PRN pain #14 tabs 09/29/23 mg tablet gabapentin 600 mg tablet See Rx Instructions .Route 10/18/23 .COMPLEX #90 tabs meloxicam 15 mg tablet See Rx Instructions .Route 10/25/23 .COMPLEX #60 tabs metformin 500 mg tablet 1,000 mg (2 x 500 mg) PO BID #180 10/28/23 tabs ipratropium 0.5 mg-albuterol 3 mg 3 ml inhalation Q6H shortness of 11/03/23 (2.5 mg base)/3 mL nebulization breath or wheezing #180 mL soln Seroquel XR 150 mg tablet,extended See Rx Instructions .Route 11/17/23 release (quetiapine) .COMPLEX #30 tabs famotidine 20 mg tablet See Rx Instructions .Route 11/17/23 .COMPLEX #60 tabs oxycodone-acetaminophen 5 mg-325 1 tab PO Q6H PRN Moderate Pain 7 11/17/23 mg tablet days #20 tabs prednisone 10 mg tablet 10 mg PO DIRECTED #60 tabs 11/17/23 promethazine 25 mg tablet See Rx Instructions .Route 11/17/23 .COMPLEX #30 tabs benzonatate 200 mg capsule 200 mg PO BID PRN cough #30 caps 11/22/23 blood-glucose sensor (Dexcom G7 #2 ea 11/22/23 Sensor device) duloxetine 30 mg capsule,delayed 30 mg PO BID #60 caps 11/22/23 release (Cymbalta) escitalopram oxalate 20 mg tablet 20 mg PO QAM #90 tabs 11/22/23 (Lexapro) nystatin 100,000 unit/gram topical 1 applic topical BID 2 weeks #30 11/22/23 ointment grams insulin aspart U-100 100 unit/mL See Rx Instructions .Route 11/23/23 (3 mL) subcutaneous pen (Novolog .COMPLEX #15 mL FlexPen U-100 Insulin aspart) insulin aspart U-100 100 unit/mL See Rx Instructions .Route 11/23/23 (3 mL) subcutaneous pen (Novolog .COMPLEX #15 mL FlexPen U-100 Insulin aspart) oxycodone-acetaminophen 5 mg-325 1 tab PO Q6H PRN pain #14 tabs 11/23/23 mg tablet (Percocet) Allergies Allergy/AdvReac Type Severity Reaction Status Date / Time ketorolac [From Toradol] Allergy Severe ALGY-Anaphy Verified 11/23/23 19:00 laxis Penicillins Allergy Severe ALGY-Anaphy Verified 11/23/23 19:00 laxis Sulfa (Sulfonamide Allergy Severe ALGY-Anaphy Verified 11/23/23 19:00 Antibiotics) laxis tetracycline Allergy Severe ALGY-Anaphy Verified 11/23/23 19:00 laxis lidocaine Allergy ALGY-Hives Verified 11/23/23 19:00 tramadol [From Ultram] Allergy ALGY-Difficulty Verified 11/23/23 19:00 Breathing Review of Systems 2 General: Reports: 10 or more systems reviewed and unremarkable except in HPI and below PFSH ED 2 PFSH: Medical History Hospital discharge follow-up Chronic hypercapnic respiratory failure Chronic respiratory failure with hypoxia Dyslipidemia Type 2 diabetes mellitus Neuropathic pain, leg, bilateral Osteoarthritis IVELISSE (obstructive sleep apnea) GERD without esophagitis Chronic low back pain Pulmonary nodules Rheumatoid arthritis History of stroke Chronic cystitis delivery delivered Constipation Hematochezia Insomnia Community acquired pneumonia History of bipolar disorder History of hypertension Surgical History History of incisional hernia repair History of hysterectomy History of cholecystectomy History of tonsillectomy History of knee surgery Family History Mother , at age 78 COVID-19 Brother , at age 58 Cancer Colon Father , at age 45 Car occupant injured in traffic accident Cancer Colon Family/Other Cancer Paternal-lung Other Chronic kidney disease (CKD) Dementia Diabetes Hyperlipidemia Hypertension Lung disease Stroke Denies family history of CAD (coronary artery disease) Clotting disorder Psychiatric illness Anesthesia complication Bleeding disorder Social History Smoking and tobacco/nicotine status: current every day tobacco/nicotine user cigarettes Packs smoked per day: 0.5 Years cigarettes smoked: 30 [ Other cigarette details: Currently smoking 6-7/day] Quit status (tobacco/nicotine): considering quitting Alcohol intake: never Substance/Drug Use: former Adopted: No Lives independently: Yes Household members: spouse Marital status: Number of grandchildren: 2 Current occupational status: disabled Special sherine needs: No Agree to transfusion: Yes Female Reproductive History: Spontaneous abortions: No Physical Exam 2 Const: COMMON NORMALS: no acute distress, average body habitus, patient oriented x3, no limitations, healthy appearing, alert and well nourished HENMT: COMMON NORMALS: normocephalic, atraumatic, hearing grossly normal bilaterally, external ears normal, Normal external nose present and moist oral mucous membranes HEAD & SCALP: normocephalic and atraumatic NOSE: Normal external nose present EXTERNAL EAR: Yes external ears normal Neck/C-Spine: COMMON NORMALS: no JVD Chest: COMMONS NORMALS: normal inspection of the chest and normal palpation of entire chest wall Resp: COMMON NORMALS: normal respiratory effort, No retractions, No use of accessory muscles and clear to auscultation bilaterally AUSCULTATION: clear to auscultation bilaterally Cardio: COMMON NORMALS: no JVD, regular rate, regular rhythm, S1 normal heart sound present, S2 normal heart sound present, No gallops present (Cardio), No clicks present (Cardio), No murmurs present (Cardio) and No rub (Cardio) R ATE: regular rate RHYTHM: regular rhythm HEART SOUNDS: S1 normal heart sound present and S2 normal heart sound present GI: COMMON NORMALS: Normal to inspection, nondistended, normoactive bowel sounds present, Soft to palpation, non-tender and no masses PALPATION: Yes Soft to palpation Neuro: COMMON NORMALS: patient oriented x3 SENSORIUM/ORIENTATION: Yes alert Course 2 Vital Signs: Vital signs: Vital Signs Temperature 98.5 F 11/23/23 18:50 Pulse Rate 95 11/23/23 21:58 Respiratory Rate 28 H 11/23/23 21:58 Blood Pressure 125/86 10/09/24 21:58 Pulse Oximetry 98 11/23/23 21:58 Oxygen Delivery Me thod Room Air 11/23/23 21:58 MDM - General Adult Medical Decision Making Patient sugar upon arrival was approximately 368. She is given 5 units of IV insulin and brought down to 158, patient was given 4 mg Zofran along with a total of 2 mg of Dilaudid for her stay here. Patient says she has no fast acting insulin so we will prescribe her a sliding scale and we will also increase her pain medicine from [place] fives to Percocet fives for a few days since we jostled her broken hip around here in ER. Medical Records I reviewed the patient's medical records. Lab Data I reviewed the patient's lab results. 11/23/23 19:02 11/23/23 19:02 Laboratory Results WBC 14.31 10^3/uL (3.29-11.43) H 11/23/23 19:02 RBC 4.83 10^6/uL (3.85-5.65) 11/23/23 19:02 Hgb 14.30 g/dL (11.27-16.99) 11/23/23 19:02 Hct 45.3 % (36-47) 11/23/23 19: MCV 93.8 fl (85-98) 11/23/23 19:02 MCH 29.6 pg (27-33) 11/23/23 19:02 MCHC 31.6 g/dL (30-55) 11/23/23 19: RDW 14.5 % (12.1-15.1) 11/23/23 19:02 Plt Count 206 10^3/cmm (157-399) 11/23/23 19:02 MPV 11.1 fL (7.4-10.4) H 11/23/23 19:02 Neut % (Auto) 84.2 % 11/23/23 19: Lymph % (Auto) 11.2 % 11/23/23 19:02 [place] % (Auto) 3.8 % 11/23/23 19:02 Eos % (Auto) 0.1 % 11/23/23 19:02 Baso % (Auto) 0.1 % 11/23/23 19:02 Neut # (Auto) 12.07 10^3/uL (1.8-7.7) H 11/23/23 19:02 Lymph # (Auto) 1.6 10^3/uL (0.8-4.8) 11/23/23 19:02 [place] # (Auto) 0.5 10^3/uL (0.2-0.9) 11/23/23 19:02 Eos # (Auto) 0.0 10^3/uL (0.0-0.8) 11/23/23 19:02 Baso # (Auto) 0.0 10^3/uL (0.0-0.1) 11/23/23 19:02 Nucleated RBC % (auto) 0 % 11/23/23 19:02 Nucleated RBCs # 0.0 /100WBC 11/23/23 19:02 Sodium 134 mmol/L (136-145) L 11/23/23 19:02 Potassium 4.8 mmol/L (3.5-5.1) 11/23/23 19:02 Chloride 100 mmol/L (98-107) 11/23/23 19:02 Carbon Dioxide 23 mmol/L (22-29) 11/23/23 19:02 Anion Gap 15.8 (5-19) 11/23/23 19:02 BUN 22 mg/dL (6-20) H 11/23/23 19:02 Creatinine 0.7 mg/dL (0.5-0.9) 11/23/23 19:02 GFR Calculation 85.6 mL/min (90-130) L 11/23/23 19:02 Glucose 368 mg/dL (65-115) H 11/23/23 19:02 POC Glucose 158 mg/dL (70-110) H 11/23/23 21:53 Calculated Osmolality 296 mOsm/kg (285-295) H 11/23/23 19:02 Calcium 9.3 mg/dL (8.5-10.5) 11/23/23 19:02 Total Bilirubin 0.3 mg/dL (0.15-1.2) 11/23/23 19:02 AST 27 U/L (0-32) 11/23/23 19:02 ALT 21 U/L (0-33) 11/23/23 19:02 Alkaline Phosphatase 70 U/L (35-105) 11/23/23 19:02 Total Protein 7.3 g/dL (6.6-8.7) 11/23/23 19:02 Albumin 4.1 g/dL (3.5-5.2) 11/23/23 19:02 Globulin 3.2 g/dL (1.3-4.6) 11/23/23 19:02 Serum Ketones Negative (Negative) 11/23/23 19:02 All radiology interpretation(s) finalized by discharge Discharge Plan Discharge Patient Disposition: Home Clinical Impression: Diabetes mellitus with hyperglycemia Qualifiers: Diabetes mellitus type: type 2 Diabetes mellitus prison insulin use: with prison use Qualified Code(s): E11.65 - Type 2 diabetes mellitus with hyperglycemia Hip pain Qualifiers: Laterality: left Qualified Code(s): M25.552 - Pain in left hip Condition: Stable Prescriptions: New insulin aspart U-100 [Novolog FlexPen U-100 Insulin] 100 unit/mL (3 mL) insulin pen See Rx Instructions .ROUTE .COMPLEX Qty: 15 0RF Rx Instructions: Please check blood sugar 3 times a day with meals, inject 2 units subcu for blood sugars between 101 and 200, 4 units for blood sugar between 201 and 300, 6 units for blood sugar above 300, oxycodone-acetaminophen [Percocet] 5-325 mg tablet 1 tab PO Q6H PRN (Reason: pain) Qty: 14 0RF insulin aspart U-100 [Novolog FlexPen U-100 Insulin] 100 unit/mL (3 mL) insulin pen See Rx Instructions .ROUTE .COMPLEX Qty: 15 0RF Rx Instructions: inject 2 units sq tid for glucose between 101 and 200, 4 units for blood sugar between 201 and 300, 6 units for blood sugar above 300, No Action (DME) manual wheelchair See Rx Instructions .Route .MEDSUPPLY Qty: 1 0RF Rx Instructions: As directed (DME) TENS unit and equipment See Rx Instructions .Route .MEDSUPPLY Qty: 1 0RF Rx Instructions: As directed (DME) Left wrist brace See Rx Instructions .Route .MEDSUPPLY Qty: 1 0RF Rx Instructions: As directed (DME) lancets Misc See Rx Instructions .Route Qty: 100 0RF Rx Instructions: As directed (DME) lancets Misc See Rx Instructions .MEDSUPPLY Qty: 200 12RF Rx Instructions: Use as directed to prick skin for blood sugar checks (DME) motorized electric scooter See Rx Instructions .Route .MEDSUPPLY Qty: 1 0RF Rx Instructions: As directed (DME) Blood Glucose Test Strip See Rx Instructions .MEDSUPPLY Qty: 200 12RF Rx Instructions: Use as directed with glucometer to check blood sugar (DME) lancets Misc See Rx Instructions .MEDSUPPLY Qty: 200 12RF Rx Instructions: Use as directed to prick skin for blood sugar checks naloxone [Narcan] 4 mg/actuation spray,non-aerosol 4 mg intranasal Q2M PRN (Reason: opioid overdose) Qty: 2 0RF Rx Instructions: spray 1 dose into ONE nostril; alternate nostrils w each dose (DME) Dexcom G7 [employer] Misc See Rx Instructions .Route Qty: 1 3RF Rx Instructions: As directed (DME) dexcom G7 transmitter See Rx Instructions .Route .MEDSUPPLY Qty: 1 2RF Rx Instructions: As directed benzonatate 200 mg capsule 200 mg PO BID PRN (Reason: cough) Qty: 30 0RF escitalopram oxalate [Lexapro] 20 mg tablet 20 mg PO QAM Qty: 90 1RF nystatin 100,000 unit/gram ointment 1 applic topical BID 14 Days Qty: 30 0RF duloxetine [Cymbalta] 30 mg capsule,delayed release(DR/EC) 30 mg PO BID Qty: 60 2RF (DME) Dexcom G7 Sensor Device See Rx Instructions .Route Qty: 2 3RF Rx Instructions: As directed (DME) wheelchair See Rx Instructions .Route .MEDSUPPLY Qty: 1 0RF Rx Instructions: As directed (DME) CPAP 6-16cm setting See Rx Instructions .ROUTE .MEDSUPPLY Qty: 1 0RF Rx Instructions: As directed (DME) CPAP mask, tubing, supplies See Rx Instructions .ROUTE .MEDSUPPLY Qty: 1 1RF Rx Instructions: As directed (DME) Blood Glucose Test Strip See Rx Instructions .MEDSUPPLY Qty: 200 12RF Rx Instructions: Use as directed with glucometer to check blood sugar (DME) pen needle, diabetic [Pen Needle] 30 gauge x 5/16 needle See Rx Instructions .MEDSUPPLY Qty: 100 12RF Rx Instructions: Use as directed for insulin administration morphine [MS Contin] 30 mg tablet extended release 30 mg PO Q12H 30 Days Qty: 60 0RF Rx Instructions: do not fill before fill date albuterol sulfate 90 mcg/actuation HFA aerosol inhaler 2 puff inhalation Q6H PRN (Reason: shortness of breath or wheezing) Qty: 8.5 3RF aspirin 81 mg tablet,chewable 81 mg PO QAM Qty: 60 0RF Lipitor 40 mg tablet 40 mg PO BEDTIME Qty: 90 1RF fluticasone propion-salmeterol [Advair Diskus] 250-50 mcg/dose blister with device See Rx Instructions .ROUTE .COMPLEX Qty: 60 3RF Dose Instruction: TAKE 1 PUFF BY MOUTH TWICE A DAY Rx Instructions: TAKE 1 PUFF BY MOUTH TWICE A DAY glipizide 10 mg tablet See Rx Instructions .ROUTE .COMPLEX Qty: 90 0RF Dose Instruction: TAKE 1 TABLET BY MOUTH EVERY DAY Rx Instructions: TAKE 1 TABLET BY MOUTH EVERY DAY insulin glargine [Lantus Solostar U-100 Insulin] 100 unit/mL (3 mL) insulin pen 10 unit SUBCUT QAM Qty: 15 2RF tiotropium bromide [Spiriva with HandiHaler] 18 mcg capsule, w/inhalation device 1 cap inhalation DAILY Qty: 60 6RF Rx Instructions: puncture 1 cap using device; one dose = 2 inhalations baclofen 15 mg tablet 15 mg PO BID Qty: 60 2RF gabapentin 600 mg tablet See Rx Instructions .ROUTE .COMPLEX Qty: 90 0RF Dose Instruction: TAKE 1 TABLET BY MOUTH THREE TIMES DAILY Rx Instructions: TAKE 1 TABLET BY MOUTH THREE TIMES DAILY meloxicam 15 mg tablet See Rx Instructions .ROUTE .COMPLEX Qty: 60 0RF Dose Instruction: TAKE 1 TABLET BY MOUTH IN THE MORNING Rx Instructions: TAKE 1 TABLET BY MOUTH IN THE MORNING metformin 500 mg tablet 1,000 mg PO BID Qty: 180 1RF famotidine 20 mg tablet See Rx Instructions .ROUTE .COMPLEX Qty: 60 1RF Dose Instruction: TAKE 1 TABLET BY MOUTH TWICE A DAY Rx Instructions: TAKE 1 TABLET BY MOUTH TWICE A DAY promethazine 25 mg tablet See Rx Instructions .ROUTE .COMPLEX Qty: 30 0RF Dose Instruction: TAKE 1 TABLET BY MOUTH THREE TIMES DAILY NEEDED FOR NAUSEA AND VOMITING Rx Instructions: TAKE 1 TABLET BY MOUTH THREE TIMES DAILY NEEDED FOR NAUSEA AND VOMITING quetiapine [Seroquel XR] 150 mg tablet extended release 24 hr See Rx Instructions .ROUTE .COMPLEX Qty: 30 0RF Dose Instruction: TAKE 1 TABLET BY MOUTH AT BEDTIME Rx Instructions: TAKE 1 TABLET BY MOUTH AT BEDTIME ipratropium-albuterol 0.5 mg-3 mg(2.5 mg base)/3 mL solution for nebulization 3 ml inhalation Q6H Qty: 180 5RF hydrocodone-acetaminophen 5-325 mg tablet 1 tab PO Q6H PRN (Reason: pain) Qty: 14 0RF oxycodone-acetaminophen 5-325 mg Tablet 1 tab PO Q6H PRN (Reason: Moderate Pain) 7 Days Qty: 20 0RF prednisone 10 mg tablet 10 mg PO DIRECTED Qty: 60 0RF Rx Instructions: see taper instructions 60mg for 2 days, 50mg for 2 days, 40mg for 2 days, 30mg for 2 days, 20mg for 2 days. 10mg for 2 days Discharge Orders: Discharge ED (Routine); Ordered 11/23/23 Ordered By: Stephen Mcgowan Referrals: Robbie Burrell MD [Primary Care Provider] - Patient Instructions: Opioid Safety, Pain Management Activity Restrictions/Additional Instructions: A new prescription for Percocet has been sent to the pharmacy for your increased pain, as well as a sliding scale insulin. Please get them filled and take them as directed. Please follow-up with your doctor within next 7 days for further evaluation and treatment. Coding Level of Care Code ED Model And Mold Maker for Abdirahman Hill
[2023-11-23 19:10] LABS: Basophils % 0.1 %; Eosinophils % 0.1 %; Hematocrit 45.3 % (36-47); Lymphocytes # 1.6 10^3/uL (0.8-4.8); Lymphocytes % 11.2 %; Mean Corpuscular HGB Conc 31.6 g/dL (30-55); Mean Corpuscular Hemoglobin 29.6 pg (27-33); Mean Corpuscular Volume 93.8 fl (85-98); Mean Platelet Volume 11.1 fL (7.4-10.4); Monocytes # 0.5 10^3/uL (0.2-0.9); Monocytes % 3.8 %; Neutrophils # 12.07 10^3/uL (1.8-7.7); Neutrophils % 84.2 %; Nucleated Red Blood Cells % 0 %; Platelet Count 206 10^3/cmm (157-399); Red Blood Count 4.83 10^6/uL (3.85-5.65); Red Cell Distribution Width 14.5 % (12.1-15.1); White Blood Count 14.31 10^3/uL (3.29-11.43)
[2023-11-23] MEDS: morphine 4 mg/mL SDV 1 mL IVP (19:14)
[2023-11-23 19:26] LABS: Ketone (Acetest) Serum Negative (Negative)
[2023-11-23 19:28] LABS: Albumin Level 4.1 g/dL (3.5-5.2); Alkaline Phosphatase 70 U/L (35-105); Anion Gap 15.8 (5-19); Aspartate Amino Transferase 27 U/L (0-32); Blood Urea Nitrogen 22 mg/dL (6-20); Calcium 9.3 mg/dL (8.5-10.5); Carbon Dioxide 23 mmol/L (22-29); Chloride 100 mmol/L (98-107); Creatinine Clr Calc Pharmacy 135.3542; Globulin 3.2 g/dL (1.3-4.6); Glomerular Filtration Rate 85.6 mL/min (90-130); Glucose 368 mg/dL (65-115); Osmolality Calculated 296 mOsm/kg (285-295); Potassium 4.8 mmol/L (3.5-5.1); Sodium 134 mmol/L (136-145); Total Bilirubin 0.3 mg/dL (0.15-1.2); Total Protein 7.3 g/dL (6.6-8.7)
[2023-11-23] MEDS: insulin regular-human 100 units/1 mL 5 UNIT IVP (19:39)
[2023-11-23] MEDS: ondansetron 2 mg/ML SDV 2 mL 4 MG IVP (19:39)
[2023-11-23 19:40] LABS: Alanine Aminotransferase 21 U/L (0-33)
[2023-11-23] MEDS: HYDROmorphone 1 mg/mL INJ 1 mL IVP ×2 (19:45→21:58)
[2023-11-23 21:57] LABS: Glucose Point of Care 158 mg/dL (70-110)
[2023-11-23] MEDS: HYDROmorphone 1 mg/mL INJ 1 mL 0.5 MG IVP (23:05)
== END 2023-11-23 22:49 | disposition home or self-care (01) ==
PROVIDERS: Emergency Provider Emergency Medicine; PCP Family Medicine
DX: E11.65 Type 2 diabetes mellitus with hyperglycemia (principal); M25.552 Pain in left hip; Z79.82 Long term (current) use of aspirin; Z79.84 Long term (current) use of oral hypoglycemic drugs; Z79.4 Long term (current) use of insulin; F17.210 Nicotine dependence, cigarettes, uncomplicated; I10 Essential (primary) hypertension
CPT/HCPCS: 36416; 80053; 82009; 82962; 85025; 96374; 96375; 96376; 99284; J1170; J1815; J2270; J2405

== ENCOUNTER → 2024-01-18 13:46 | Outpatient (BNVA) | payer MEDICAID, SELFPAY | PROVIDERS: PCP Family Medicine; Visit Provider Family Medicine | DX: E11.69 Type 2 diabetes mellitus with other specified complication (principal) | CPT/HCPCS: 83036 ==

== ENCOUNTER → 2024-01-24 14:19 | Outpatient (BNVA) | payer MEDICAID, SELFPAY | PROVIDERS: PCP Family Medicine; Visit Provider Student in an Organized Health Care Education/Training Program | DX: M16.12 Unilateral primary osteoarthritis, left hip (principal); M87.052 Idiopathic aseptic necrosis of left femur | CPT/HCPCS: 99213 ==

== ENCOUNTER 2024-02-18 15:23 | Emergency (ER) | payer MEDICAID, SELFPAY ==
[2024-02-18] VITALS (10 sets, daily range): BP systolic 125–171; BP diastolic 64–86; PULSE 88–109; RESP 18–24; TEMP 36.7; O2SAT 93–99
--- NOTE | 2024-02-18 15:35 | XRR_ITS ---
PROCEDURE INFORMATION: Exam: XR Chest Exam date and time: 02/18/2024 3:40 PM Age: 58 years old Clinical indication: Cough and wheezing; Additional info: Cough wheeze TECHNIQUE: Imaging protocol: Radiologic exam of the chest. Views: 1 view. COMPARISON: CR XR chest 1V portable [id number] 11/17/2023 7:22 AM FINDINGS: Lungs: Unremarkable. No consolidation. Pleural spaces: Unremarkable. No pleural effusion. No pneumothorax. Heart/Mediastinum: Unremarkable. No cardiomegaly. Bones/joints: Unremarkable. XR/XR chest 1V portable [id number] IMPRESSION: No acute findings.
[2024-02-18 15:40] LABS: Basophils # 0.1 10^3/uL (0.0-0.1); Basophils % 0.5 %; Eosinophils # 0.2 10^3/uL (0.0-0.8); Hematocrit 38.5 % (36-47); Lymphocytes # 3.4 10^3/uL (0.8-4.8); Lymphocytes % 34.9 %; Mean Corpuscular HGB Conc 30.6 g/dL (30-55); Mean Corpuscular Volume 94.6 fl (85-98); Mean Platelet Volume 10.6 fL (7.4-10.4); Monocytes # 0.7 10^3/uL (0.2-0.9); Monocytes % 7.2 %; Neutrophils # 5.35 10^3/uL (1.8-7.7); Neutrophils % 54.6 %; Nucleated Red Blood Cells % 0 %; Platelet Count 193 10^3/cmm (157-399); Red Blood Count 4.07 10^6/uL (3.85-5.65); Red Cell Distribution Width 13.3 % (12.1-15.1); White Blood Count 9.82 10^3/uL (3.29-11.43)
[2024-02-18 15:57] LABS: Alanine Aminotransferase 12 U/L (0-33); Albumin Level 3.8 g/dL (3.5-5.2); Alkaline Phosphatase 81 U/L (35-105); Anion Gap 15.3 (5-19); Aspartate Amino Transferase 39 U/L (0-32); Blood Urea Nitrogen 11 mg/dL (6-20); C Reactive Protein 9.4 mg/L (0.0-4.9); Calcium 9.1 mg/dL (8.5-10.5); Carbon Dioxide 27 mmol/L (22-29); Chloride 103 mmol/L (98-107); Creatinine Clr Calc Pharmacy 189.4959; Globulin 3.3 g/dL (1.3-4.6); Glomerular Filtration Rate 126.3 mL/min (90-130); Glucose 185 mg/dL (65-115); Osmolality Calculated 296 mOsm/kg (285-295); Potassium 4.3 mmol/L (3.5-5.1); Sodium 141 mmol/L (136-145); Total Bilirubin 0.2 mg/dL (0.15-1.2); Total Protein 7.1 g/dL (6.6-8.7)
--- NOTE | 2024-02-18 16:01 | W.ED.NAVMDI ---
HPI - Nausea/Vomiting/Diarrhea General: Chief complaint: Nausea/Vomiting/Diarrhea Stated complaint: N/V Time Seen by Provider: 02/18/24 15:24 History of Present Illness: Patient is a 58-year-old female that presents to the emergency department with complaints of abdominal pain, nausea vomiting and diarrhea. Onset of symptoms proximately 1 week ago. Patient reports onset of diarrhea then nausea vomiting. Patient is tearful. Reports that she has not been able to take her routine pain medications since she has been vomiting. Chronic low back pain, chronic left hip pain. She reports she needs a hip replacement but currently working on weight loss. Patient's medical history includes hyperlipidemia, hypertension, cardiovascular disease, diabetes, COPD, chronic pain, depression, GERD. Associated nausea: Yes Associated symtoms: Reports fatigue and nausea; Denies bloating, change in vision, chest pain, dizziness, dysuria, headache(s), malaise, palpitations or tinnitus Related Data Previous Rx's Medication Instructions Recorded manual wheelchair #1 ea 10/03/19 TENS unit and equipment #1 ea 10/01/22 wheelchair #1 ea 10/14/22 CPAP 6-16cm setting #1 ea 11/23/22 CPAP mask, tubing, supplies #1 ea 11/23/22 Left wrist brace #1 ea 12/06/22 lancets #100 ea 01/24/23 lancets #200 ea 02/21/23 motorized electric scooter #1 ea 02/21/23 blood sugar diagnostic (Blood #200 ea 03/04/23 Glucose Test strips) blood sugar diagnostic (Blood #200 ea 03/16/23 Glucose Test strips) lancets #200 ea 03/16/23 naloxone 4 mg/actuation nasal 4 mg intranasal Q2M PRN opioid 03/16/23 spray (Narcan) overdose #2 ea pen needle, diabetic 30 gauge x #100 ea 03/17/23 5/16 (Pen Needle) dexcom G7 transmitter #1 ea 07/29/23 albuterol sulfate 90 mcg/actuation 2 puff inhalation Q6H PRN 08/17/23 aerosol inhaler shortness of breath or wheezing #8.5 grams aspirin 81 mg chewable tablet 81 mg PO QAM #60 tabs 08/17/23 atorvastatin 40 mg tablet (Lipitor) 40 mg PO BEDTIME #90 tabs 08/17/23 fluticasone 250 mcg-salmeterol 50 See Rx Instructions .Route 08/17/23 mcg/dose blistr powdr for .COMPLEX #60 ea inhalation (Advair Diskus) tiotropium bromide 18 mcg capsule 1 cap inhalation DAILY #60 08/17/23 with inhalation device (Spiriva inhalations with HandiHaler) ipratropium 0.5 mg-albuterol 3 mg 3 ml inhalation Q6H shortness of 11/03/23 (2.5 mg base)/3 mL nebulization breath or wheezing #180 mL soln blood-glucose sensor (Dexcom G7 #2 ea 11/22/23 Sensor device) duloxetine 30 mg capsule,delayed 30 mg PO BID #60 caps 11/22/23 release (Cymbalta) escitalopram oxalate 20 mg tablet 20 mg PO QAM #90 tabs 11/22/23 (Lexapro) nystatin 100,000 unit/gram topical 1 applic topical BID 2 weeks #30 11/22/23 ointment grams blood-glucose meter,continuous #1 ea 11/25/23 (Dexcom G7 Control Tower Radio Operator) benzonatate 200 mg capsule 200 mg PO BID PRN cough #60 caps 12/08/23 Seroquel XR 150 mg tablet,extended See Rx Instructions .Route 12/27/23 release (quetiapine) .COMPLEX #90 tabs baclofen 15 mg tablet 15 mg PO BID #60 tabs 12/27/23 gabapentin 600 mg tablet See Rx Instructions .Route 12/27/23 .COMPLEX #270 tabs nicotine 14 mg/24 hr daily 1 patch transdermal DAILY #28 ea 12/27/23 transdermal patch glipizide 10 mg tablet See Rx Instructions .Route 01/04/24 .COMPLEX #90 tabs meloxicam 15 mg tablet See Rx Instructions .Route 01/04/24 .COMPLEX #90 tabs insulin glargine 100 unit/mL (3 25 unit (0.25 mL) SUBCUT QAM #15 mL 01/18/24 mL) subcutaneous pen (Lantus Solostar U-100 Insulin) loperamide 2 mg tablet (Imodium 2 mg PO QID PRN loose stool #30 01/18/24 A-D) tabs famotidine 20 mg tablet See Rx Instructions .Route 01/26/24 .COMPLEX #60 tabs metformin 500 mg tablet 1,000 mg (2 x 500 mg) PO BID #180 02/03/24 tabs promethazine 25 mg tablet See Rx Instructions .Route 02/03/24 .COMPLEX #60 tabs morphine 15 mg tablet,extended 15 mg PO Q12H pain 30 days #60 tabs 02/06/24 release insulin lispro 100 unit/mL 6 unit (0.06 mL) SUBCUT TID #15 mL 02/13/24 [facility] Insulin lispro) hydrocodone 5 mg-acetaminophen 325 1 tab PO Q6H PRN pain 30 days #120 02/14/24 mg tablet tabs azithromycin 500 mg tablet 500 mg PO DAILY 4 days #4 tabs 02/18/24 benzonatate 100 mg capsule 100 mg PO BID PRN cough #10 caps 02/18/24 cefuroxime axetil 500 mg tablet 500 mg PO BID #10 tabs 02/18/24 Allergies Allergy/AdvReac Type Severity Reaction Status Date / Time ketorolac [From Toradol] Allergy Severe ALGY-Anaphy Verified 01/24/24 14:35 laxis Penicillins Allergy Severe ALGY-Anaphy Verified 01/24/24 14:35 laxis Sulfa (Sulfonamide Allergy Severe ALGY-Anaphy Verified 01/24/24 14:35 Antibiotics) laxis tetracycline Allergy Severe ALGY-Anaphy Verified 01/24/24 14:35 laxis lidocaine Allergy ALGY-Hives Verified 01/24/24 14:35 tramadol [From Ultram] Allergy ALGY-Difficulty Verified 01/24/24 14:35 Breathing Review of Systems General: Reports: 10 or more systems reviewed and unremarkable except in HPI and below Const: Reports: chills and fatigue; Denies: fever(s), change in appetite, change in weight or malaise Eyes: Denies: change in vision, eye discomfort, eye discharge or eye redness ENMT: Reports: nasal discharge, nasal congestion and post nasal drip; Denies: throat pain, enlarged tonsils, odynophagia, hoarseness, ear or mastoid pain, ear discharge, change in hearing, tinnitus or sinus pain Card: Reports: dyspnea on exertion; Denies: chest pain, palpitations, irregular heart rhythm, edema, orthopnea or leg pain with exertion Resp: Reports: dyspnea, productive cough, wheezing and chest congestion; Denies: non-productive cough or stridor GI: Reports: abdominal pain, nausea, vomiting and diarrhea; Denies: dysphagia, constipation, bloating, GI cramping, hematochezia, melena or mucus in stool : Denies: flank pain, difficulty voiding, dysuria, urinary frequency, urinary urgency, urinary hesitancy, oliguria or hematuria Musc: Denies: neck pain, back pain, extremity pain, joint pain, joint swelling, joint redness, joint warmth or muscle weakness Skin/Breast: Denies: rash, pruritus, erythema, photosensitivity or new lesions Neuro: Denies: headache(s), numbness in extremities, weakness in extremities, sensory changes, lack of coordination, difficulty walking, frequent falls, dizziness, confusion, Slurred speech present, difficulty communicating thoughts, seizure-like activity or involuntary movements Endo: Denies: polyuria, polydipsia or tired all the time Anish/Lymph: Denies: easy bruising or easy bleeding PFSH ED PFSH: Medical History Type 2 diabetes mellitus Hospital discharge follow-up Chronic hypercapnic respiratory failure Chronic respiratory failure with hypoxia Dyslipidemia Neuropathic pain, leg, bilateral Osteoarthritis IVELISSE (obstructive sleep apnea) GERD without esophagitis Chronic low back pain Pulmonary nodules Rheumatoid arthritis History of stroke Chronic cystitis delivery delivered Constipation Hematochezia Insomnia Community acquired pneumonia History of bipolar disorder History of hypertension Surgical History History of incisional hernia repair History of hysterectomy History of cholecystectomy History of tonsillectomy History of knee surgery Family History Mother , at age 78 COVID-19 Brother , at age 58 Cancer Colon Father , at age 45 Car occupant injured in traffic accident Cancer Colon Family/Other Cancer Paternal-lung Other Chronic kidney disease (CKD) Dementia Diabetes Hyperlipidemia Hypertension Lung disease Stroke Denies family history of CAD (coronary artery disease) Clotting disorder Psychiatric illness Anesthesia complication Bleeding disorder Social History Smoking and tobacco/nicotine status: current every day tobacco/nicotine user cigarettes Packs smoked per day: 0.5 Years cigarettes smoked: 30 [ Other cigarette details: Currently smoking 6-7/day] Quit status (tobacco/nicotine): considering quitting Alcohol intake: never Substance/Drug Use: former Adopted: No Lives independently: Yes Household members: spouse Marital status: Number of grandchildren: 2 Current occupational status: disabled Special sherine needs: No Agree to transfusion: Yes Female Reproductive History: Spontaneous abortions: No Physical Exam Const: COMMON NORMALS: no acute distress, patient oriented x3 and alert GENERAL APPEARANCE: cooperative ORIENTATION/CONSCIOUSNESS: Yes awake, Yes oriented to person, Yes oriented to place and Yes oriented to time HENMT: COMMON NORMALS: normocephalic and atraumatic HEAD & SCALP: normocephalic and atraumatic FACE & SINUS: normal facial exam MOUTH: Normal oral and palatal mucosa present THROAT: posterior oropharynx normal Eye: COMMON NORMALS: Equal, round and reactive pupils present, EOMs intact bilaterally, conjunctivae normal and no scleral icterus GENERAL EYE: appearance normal, both eyes and all related structures ALIGNMENT: Yes alignment normal PERIORBITAL: periorbital findings normal CONJUNCTIVA: Yes conjunctivae normal PUPIL: Yes Equal, round and reactive pupils present Neck/C-Spine: COMMON NORMALS: full ROM GENERAL: Yes normal visual inspection Lymph: LYMPHATIC: no lymphadenopathy noted Chest: COMMONS NORMALS: normal inspection of the chest Breast/axilla inspection: Yes no chest deformity, asymmetry, normal contours, no nodules, masses, tenderness Resp: COMMON NORMALS: normal respiratory effort, No retractions, No use of accessory muscles and clear to auscultation bilaterally EFFORT & INSPECTION: Yes able to speak in complete sentences and Yes symmetric chest movement AUSCULTATION: clear to auscultation bilaterally Cardio: COMMON NORMALS: regular rate, regular rhythm and Peripheral pulses 2+ throughout RATE: regular rate RHYTHM: regular rhythm PERIPHERAL PULSES: Peripheral pulses 2+ throughout GI: COMMON NORMALS: Normal to inspection, nondistended, normoactive bowel sounds present, Soft to palpation, non-tender and No hepatosplenomegaly present INSPECTION: Yes normal to inspection AUSCULTATION: Yes normoactive bowel sounds PALPATION: Yes Soft to palpation and Yes No hepatosplenomegaly present RECTAL EXAM: deferred Extremity: COMMON NORMALS: normal to inspection GENERAL: Yes normal exam except as noted Neuro: COMMON NORMALS: patient oriented x3 SENSORIUM/ORIENTATION: Yes alert, Yes oriented to person, Yes oriented to place and Yes oriented to time CRANIAL NERVES: Yes CN normal except as noted Psych: COMMON NORMALS: mental status grossly normal, Normal thought process present, cooperative, activity/motor behavior normal, denies homicidal ideation and denies suicidal ideation THOUGHT PROCESS: Normal thought process present Skin: COMMON NORMALS: no rashes or lesions noted, no wounds and turgor normal GENERAL SKIN EXAM: no rashes or lesions noted and turgor normal Course Vital Signs: Vital signs: Vital Signs Temperature 98.1 F 02/18/24 15:25 Pulse Rate 100 02/18/24 17:02 Respiratory Rate 18 02/18/24 17:02 Blood Pressure 169/85 02/18/24 16:54 Pulse Oximetry 99 02/18/24 17:02 Oxygen Delivery Me thod Nasal Cannula 02/18/24 17:02 Oxygen Flow Rate 3 02/18/24 17:02 MDM - Nausea/Vomiting/Diarrhea Medical Decision Making Cyndi is in ER today for complaints of cough congestion back and left hip pain. Onset of N/V/D about 5 days ago. As a result she has not been able to take her pain medication and back and hip pain has worsened. In the emergency department today we underwent XR and CT imaging of the patient's chest due to her strong productive cough. She has clear to white sputum production. Chest x-ray reveals infiltrate versus atelectasis. We are going to treat her for community-acquired pneumonia with azithromycin and Cefuroxime. Treatment was initiated here in the emergency department. She was also treated with DuoNeb treatments and her respiratory function improved.. Her pain was treated with Dilaudid. Originally she is complaining of a 10 out of 10 pain in the left hip which is chronic in nature. Her goal was to be at 8. We got her to a 7/10. She is very appreciative the care she got here. She was also given Tessalon Perles for her cough. Due to some itchiness we treated her with Benadryl as well. She underwent a CT chest which revealed: IMPRESSION: 1. Right upper lobe minimal atelectasis versus infiltrate anteriorly. 2. Multilevel bridging degenerative calcifications throughout the spine. 3. Hepatic steatosis. 4. Right thyroid lobe somewhat enlarged, consider correlation with ultrasound. 5. Right adrenal 28 mm indeterminate nodule, dedicated adrenal imaging could further characterize this. 6. Cholecystectomy. 7. Perinephric edema bilaterally likely reflecting renal insufficiency, please correlate for pyelonephritis. 8. Scattered subcentimeter short axis nonspecific mediastinal lymph nodes. 9. Main pulmonary artery is prominent which can be a finding of pulmonary hypertension. Will have the patient follow-up with her primary care doctor regarding her adrenal and thyroid lobe findings. She has send perinephritic edema bilaterally likely reflecting renal insufficiency but creatinine is stable at 0.5 Urinalysis did not reveal any bacteria, leukoesterase, white blood cells or nitrates. Patient is going to discharge home. She needs to follow-up with her primary care doctor Tuesday. Call for an appointment Lab Data 02/18/24 15:11 02/18/24 15:11 Radiology Impressions Chest X-Ray 02/18/24 15:35 IMPRESSION: No acute findings. Chest CT 02/18/24 16:05 IMPRESSION: 1. Right upper lobe minimal atelectasis versus infiltrate anteriorly. 2. Multilevel bridging degenerative calcifications throughout the spine. 3. Hepatic steatosis. 4. Right thyroid lobe somewhat enlarged, consider correlation with ultrasound. 5. Right adrenal 28 mm indeterminate nodule, dedicated adrenal imaging could further characterize this. 6. Cholecystectomy. 7. Perinephric edema bilaterally likely reflecting renal insufficiency, please correlate for pyelonephritis. 8. Scattered subcentimeter short axis nonspecific mediastinal lymph nodes. 9. Main pulmonary artery is prominent which can be a finding of pulmonary hypertension. COMMENTS: Consistent with the [employer]'s Incidental Findings Committee white paper (J Am Mary Radiol 2017): For any incidental adrenal lesion greater than or equal to 1 cm but less than or equal to 4 cm classified in this report as benign, likely benign, or containing fat (including classification as an adenoma or myelolipoma), no follow-up imaging is recommended per consensus recommendations based on imaging criteria. Further lab evaluation could be pursued if warranted based on clinical findings. Laboratory Results WBC 9.82 10^3/uL (3.29-11.43) 02/18/24 15:11 RBC 4.07 10^6/uL (3.85-5.65) 02/18/24 15:11 Hgb 11.80 g/dL (11.27-16.99) 02/18/24 15:11 Hct 38.5 % (36-47) 02/18/24 15:11 MCV 94.6 fl (85-98) 02/18/24 15:11 MCH 29.0 pg (27-33) 02/18/24 15:11 MCHC 30.6 g/dL (30-55) 02/18/24 15:11 RDW 13.3 % (12.1-15.1) 02/18/24 15:11 Plt Count 193 10^3/cmm (157-399) 02/18/24 15:11 MPV 10.6 fL (7.4-10.4) H 02/18/24 15:11 Neut % (Auto) 54.6 % 02/18/24 15:11 Lymph % (Auto) 34.9 % 02/18/24 15:11 Moca % (Auto) 7.2 % 02/18/24 15:11 Eos % (Auto) 2.0 % 02/18/24 15:11 Baso % (Auto) 0.5 % 02/18/24 15:11 Neut # (Auto) 5.35 10^3/uL (1.8-7.7) 02/18/24 15:11 Lymph # (Auto) 3.4 10^3/uL (0.8-4.8) 02/18/24 15:11 Moca # (Auto) 0.7 10^3/uL (0.2-0.9) 02/18/24 15:11 Eos # (Auto) 0.2 10^3/uL (0.0-0.8) 02/18/24 15:11 Baso # (Auto) 0.1 10^3/uL (0.0-0.1) 02/18/24 15:11 Nucleated RBC % (auto) 0 % 02/18/24 15:11 Nucleated RBCs # 0.0 /100WBC 02/18/24 15:11 Sodium 141 mmol/L (136-145) 02/18/24 15:11 Potassium 4.3 mmol/L (3.5-5.1) 02/18/24 15:11 Chloride 103 mmol/L (98-107) 02/18/24 15:11 Carbon Dioxide 27 mmol/L (22-29) 02/18/24 15:11 Anion Gap 15.3 (5-19) 02/18/24 15:11 BUN 11 mg/dL (6-20) 02/18/24 15:11 Creatinine 0.5 mg/dL (0.5-0.9) 02/18/24 15:11 GFR Calculation 126.3 mL/min (90-130) 02/18/24 15:11 Glucose 185 mg/dL (65-115) H 02/18/24 15:11 Calculated Osmolality 296 mOsm/kg (285-295) H 02/18/24 15:11 Calcium 9.1 mg/dL (8.5-10.5) 02/18/24 15:11 Total Bilirubin 0.2 mg/dL (0.15-1.2) 02/18/24 15:11 AST 39 U/L (0-32) H 02/18/24 15:11 ALT 12 U/L (0-33) 02/18/24 15:11 Alkaline Phosphatase 81 U/L (35-105) 02/18/24 15:11 C-Reactive Protein 9.4 mg/L (0.0-4.9) H 02/18/24 15:11 Total Protein 7.1 g/dL (6.6-8.7) 02/18/24 15:11 Albumin 3.8 g/dL (3.5-5.2) 02/18/24 15:11 Globulin 3.3 g/dL (1.3-4.6) 02/18/24 15:11 Urine Color Yellow (Yellow) 02/18/24 18:09 Urine Appearance Clear (CLEAR) 02/18/24 18:09 Urine pH 5.5 (5-7) 02/18/24 18:09 Ur Specific Gay 1.030 (1.005-1.030) 02/18/24 18:09 Urine Protein Trace (Negative) A 02/18/24 18:09 Urine Glucose (UA) Negative (Normal) 02/18/24 18:09 Urine Ketones Trace (Negative) 02/18/24 18:09 Urine Blood Negative (Negative) 02/18/24 18:09 Urine Nitrate Negative (Negative) 02/18/24 18:09 Urine Bilirubin Negative (Negative) 02/18/24 18:09 Urine Urobilinogen 1.0 mg/dL (Negative) 02/18/24 18:09 Ur Leukocyte Esterase Negative (Negative) 02/18/24 18:09 Urine RBC 0-2 /hpf (0-2) 02/18/24 18:09 Urine WBC 0-5 /hpf (0-5) 02/18/24 18:09 Ur Squamous Epith Cells 0-5 /hpf (0-5) 02/18/24 18:09 Amorphous Sediment Not Reportable 02/18/24 18:09 Urine Bacteria 1+ /hpf (NONE) H 02/18/24 18:09 Hyaline Casts 0-4 /lpf H 02/18/24 18:09 Coronavirus (PCR) Negative (Negative) 02/18/24 15:35 Influenza A (PCR) Negative (Negative) 02/18/24 15:35 Influenza Type B (PCR) Negative (Negative) 02/18/24 15:35 RSV (PCR) Negative (Negative) 02/18/24 15:35 All radiology interpretation(s) finalized by discharge Discharge Plan Discharge Patient Disposition: Home Clinical Impression: Community acquired pneumonia, Avascular necrosis, Hip pain, COPD exacerbation, Chronic pain Condition: Stable Prescriptions: New cefuroxime axetil 500 mg tablet 500 mg PO BID Qty: 10 0RF azithromycin 500 mg tablet 500 mg PO DAILY 4 Days Qty: 4 0RF benzonatate 100 mg capsule 100 mg PO BID PRN (Reason: cough) Qty: 10 0RF No Action (DME) manual wheelchair See Rx Instructions .Route .MEDSUPPLY Qty: 1 0RF Rx Instructions: As directed (DME) TENS unit and equipment See Rx Instructions .Route .MEDSUPPLY Qty: 1 0RF Rx Instructions: As directed nicotine 14 mg/24 hr patch 24 hour 1 patch transdermal DAILY Qty: 28 0RF baclofen 15 mg tablet 15 mg PO BID Qty: 60 2RF (DME) Left wrist brace See Rx Instructions .Route .MEDSUPPLY Qty: 1 0RF Rx Instructions: As directed (DME) lancets Misc See Rx Instructions .Route Qty: 100 0RF Rx Instructions: As directed (DME) lancets Misc See Rx Instructions .MEDSUPPLY Qty: 200 12RF Rx Instructions: Use as directed to prick skin for blood sugar checks (DME) motorized electric scooter See Rx Instructions .Route .MEDSUPPLY Qty: 1 0RF Rx Instructions: As directed (DME) Blood Glucose Test Strip See Rx Instructions .MEDSUPPLY Qty: 200 12RF Rx Instructions: Use as directed with glucometer to check blood sugar (DME) lancets [facility] [place] See Rx Instructions .MEDSUPPLY Qty: 200 12RF Rx Instructions: Use as directed to prick skin for blood sugar checks naloxone [Narcan] 4 mg/actuation spray,non-aerosol 4 mg intranasal Q2M PRN (Reason: opioid overdose) Qty: 2 0RF Rx Instructions: spray 1 dose into ONE nostril; alternate nostrils w each dose (DME) dexcom G7 transmitter See Rx Instructions .Route .MEDSUPPLY Qty: 1 2RF Rx Instructions: As directed escitalopram oxalate [Lexapro] 20 mg tablet 20 mg PO QAM Qty: 90 1RF nystatin 100,000 unit/gram ointment 1 applic topical BID 14 Days Qty: 30 0RF duloxetine [Cymbalta] 30 mg capsule,delayed release(DR/EC) 30 mg PO BID Qty: 60 2RF (DME) Dexcom G7 Sensor Device See Rx Instructions .Route Qty: 2 3RF Rx Instructions: As directed insulin glargine [Lantus Solostar U-100 Insulin] 100 unit/mL (3 mL) insulin pen 25 unit SUBCUT QAM Qty: 15 2RF loperamide [Imodium A-D] 2 mg tablet 2 mg PO QID PRN (Reason: loose stool) Qty: 30 0RF (DME) wheelchair See Rx Instructions .Route .MEDSUPPLY Qty: 1 0RF Rx Instructions: As directed (DME) CPAP 6-16cm setting See Rx Instructions .ROUTE .MEDSUPPLY Qty: 1 0RF Rx Instructions: As directed (DME) CPAP mask, tubing, supplies See Rx Instructions .ROUTE .MEDSUPPLY Qty: 1 1RF Rx Instructions: As directed (DME) Blood Glucose Test Strip See Rx Instructions .MEDSUPPLY Qty: 200 12RF Rx Instructions: Use as directed with glucometer to check blood sugar (DME) pen needle, diabetic [Pen Needle] 30 gauge x 5/16 needle See Rx Instructions .MEDSUPPLY Qty: 100 12RF Rx Instructions: Use as directed for insulin administration albuterol sulfate 90 mcg/actuation HFA aerosol inhaler 2 puff inhalation Q6H PRN (Reason: shortness of breath or wheezing) Qty: 8.5 3RF aspirin 81 mg tablet,chewable 81 mg PO QAM Qty: 60 0RF Lipitor 40 mg tablet 40 mg PO BEDTIME Qty: 90 1RF fluticasone propion-salmeterol [Advair Diskus] 250-50 mcg/dose blister with device See Rx Instructions .ROUTE .COMPLEX Qty: 60 3RF Dose Instruction: TAKE 1 PUFF BY MOUTH TWICE A DAY Rx Instructions: TAKE 1 PUFF BY MOUTH TWICE A DAY tiotropium bromide [Spiriva with HandiHaler] 18 mcg capsule, w/inhalation device 1 cap inhalation DAILY Qty: 60 6RF Rx Instructions: puncture 1 cap using device; one dose = 2 inhalations (DME) Dexcom G7 Control Tower Radio Operator Misc See Rx Instructions .Route Qty: 1 3RF Rx Instructions: As directed benzonatate 200 mg capsule 200 mg PO BID PRN (Reason: cough) Qty: 60 0RF gabapentin 600 mg tablet See Rx Instructions .ROUTE .COMPLEX Qty: 270 0RF Dose Instruction: TAKE 1 TABLET BY MOUTH THREE TIMES DAILY Rx Instructions: TAKE 1 TABLET BY MOUTH THREE TIMES DAILY quetiapine [Seroquel XR] 150 mg tablet extended release 24 hr See Rx Instructions .ROUTE .COMPLEX Qty: 90 0RF Dose Instruction: TAKE 1 TABLET BY MOUTH AT BEDTIME Rx Instructions: TAKE 1 TABLET BY MOUTH AT BEDTIME glipizide 10 mg tablet See Rx Instructions .ROUTE .COMPLEX Qty: 90 0RF Dose Instruction: TAKE 1 TABLET BY MOUTH EVERY DAY Rx Instructions: TAKE 1 TABLET BY MOUTH EVERY DAY meloxicam 15 mg tablet See Rx Instructions .ROUTE .COMPLEX Qty: 90 0RF Dose Instruction: TAKE 1 TABLET BY MOUTH IN THE MORNING Rx Instructions: TAKE 1 TABLET BY MOUTH IN THE MORNING famotidine 20 mg tablet See Rx Instructions .ROUTE .COMPLEX Qty: 60 1RF Dose Instruction: TAKE 1 TABLET BY MOUTH TWICE A DAY Rx Instructions: TAKE 1 TABLET BY MOUTH TWICE A DAY metformin 500 mg tablet 1,000 mg PO BID Qty: 180 1RF promethazine 25 mg tablet See Rx Instructions .ROUTE .COMPLEX Qty: 60 0RF Dose Instruction: TAKE 1 TABLET BY MOUTH THREE TIMES DAILY NEEDED FOR NAUSEA AND VOMITING Rx Instructions: TAKE 1 TABLET BY MOUTH THREE TIMES DAILY NEEDED FOR NAUSEA AND VOMITING morphine 15 mg tablet extended release 15 mg PO Q12H 30 Days Qty: 60 0RF insulin lispro [Admelog SoloStar U-100 Insulin] 100 unit/mL insulin pen 6 unit SUBCUT TID Qty: 15 2RF Rx Instructions: Please check blood sugar 3 times a day with meals, inject 2 units subcu for blood sugars between 101 and 200, 4 units for blood sugar between 201 and 300, 6 units for blood sugar above 300, hydrocodone-acetaminophen 5-325 mg tablet 1 tab PO Q6H PRN (Reason: pain) 30 Days Qty: 120 0RF ipratropium-albuterol 0.5 mg-3 mg(2.5 mg base)/3 mL solution for nebulization 3 ml inhalation Q6H Qty: 180 5RF Discharge Orders: Discharge ED (Routine); Ordered 02/18/24 Ordered By: Rigoberto Rodriguez Referrals: Robbie Burrell MD [Primary Care Provider] - Discharge Diet: Advance as tolerated Discharge Activity: Resume usual activity Patient Instructions: Community Acquired Pneumonia (ED), Opioid Safety, Pain Management Activity Restrictions/Additional Instructions: Please use your respiratory treatments previously prescribed Please take your antibiotics as prescribed Please return to the emergency department for new concerning or worsening symptoms. Call to see your primary care doctor next week. You need to discuss the findings on CT and have a recheck of todays complaints. Coding Level of Care Code ED Check Inspector for Abdirahman Hill
--- NOTE | 2024-02-18 16:05 | CTR_ITS ---
PROCEDURE INFORMATION: Exam: CT Chest Without Contrast; Diagnostic Exam date and time: 02/18/2024 4:24 PM Age: 58 years old Clinical indication: Cough and wheezing; Additional info: Cough wheeze TECHNIQUE: Imaging protocol: Diagnostic computed tomography of the chest without contrast. Radiation optimization: All CT scans at this facility use at least one of these dose optimization techniques: automated exposure control; mA and/or kV adjustment per patient size (includes targeted exams where dose is matched to clinical indication); or iterative reconstruction. COMPARISON: CT angio chest PE protcl [id number] 11/14/2023 3:41 PM RADIATION DOSE METRICS: Total DLP (mGy-cm): 771.21 FINDINGS: Thyroid: Right thyroid lobe somewhat enlarged, consider correlation with ultrasound. Lungs: Right upper lobe minimal atelectasis versus infiltrate anteriorly. Pleural spaces: Unremarkable. No pneumothorax. No pleural effusion. Heart: Unremarkable. No cardiomegaly. No pericardial effusion. Negative for coronary artery atherosclerotic calcifications. Lymph nodes: Scattered subcentimeter short axis nonspecific mediastinal lymph nodes. Vasculature: Main pulmonary artery is prominent which can be a finding of pulmonary hypertension. Liver: Hepatic steatosis. Gallbladder and biliary ducts: Cholecystectomy. Adrenal glands: Right adrenal 28 mm indeterminate nodule, dedicated adrenal imaging could further characterize this. Kidneys: Perinephric edema bilaterally likely reflecting renal insufficiency, please correlate for pyelonephritis. Bones/joints: Multilevel bridging degenerative calcifications throughout the spine. Soft tissues: Unremarkable. CT/CT chest wo con [id number] IMPRESSION: 1. Right upper lobe minimal atelectasis versus infiltrate anteriorly. 2. Multilevel bridging degenerative calcifications throughout the spine. 3. Hepatic steatosis. 4. Right thyroid lobe somewhat enlarged, consider correlation with ultrasound. 5. Right adrenal 28 mm indeterminate nodule, dedicated adrenal imaging could further characterize this. 6. Cholecystectomy. 7. Perinephric edema bilaterally likely reflecting renal insufficiency, please correlate for pyelonephritis. 8. Scattered subcentimeter short axis nonspecific mediastinal lymph nodes. 9. Main pulmonary artery is prominent which can be a finding of pulmonary hypertension. COMMENTS: Consistent with the [employer]'s Incidental Findings Committee white paper (J Am Mary Radiol 2017): For any incidental adrenal lesion greater than or equal to 1 cm but less than or equal to 4 cm classified in this report as benign, likely benign, or containing fat (including classification as an adenoma or myelolipoma), no follow-up imaging is recommended per consensus recommendations based on imaging criteria. Further lab evaluation could be pursued if warranted based on clinical findings.
[2024-02-18] MEDS: ipratropium-albuterol 3 mL Neb INHALATION ×2 (16:06→17:04)
[2024-02-18] MEDS: ondansetron 2 mg/ML SDV 2 mL 4 MG IVP (16:07)
[2024-02-18] MEDS: morphine 4 mg/mL SDV 1 mL IVP (16:10)
[2024-02-18 16:28] LABS: Covid PCR NEGATIVE (Negative); Influenza A NEGATIVE (Negative); Influenza B NEGATIVE (Negative); Respiratory Syncytial Virus Ce NEGATIVE (Negative)
[2024-02-18] MEDS: HYDROmorphone 1 mg/mL INJ 1 mL IVP ×2 (16:51→18:50)
[2024-02-18] MEDS: benzonatate 100 mg Capsule PO (17:26)
[2024-02-18] MEDS: azithromycin 250 mg Tablet 500 MG PO (17:26)
[2024-02-18] MEDS: methylPREDNISolone sod succ 125 mg/2 mL INJ IVP (17:26)
[2024-02-18 18:21] LABS: Bilirubin Urine Negative (Negative); Blood Urine Negative (Negative); Glucose Urine UA Negative (Normal); Ketones Urine Trace (Negative); Leukocyte Esterase Urine Negative (Negative); Nitrate Urine Negative (Negative); Protein Urine Trace (Negative); Urine Appearance Clear (CLEAR); Urine Color Yellow (Yellow); pH Urine 5.5 (5-7)
[2024-02-18 18:26] LABS: Add Urine Microscopic? YES; Bacteria Urine 1+ /hpf; Hyaline Casts Urine 0-4 /lpf; RBC Urine 0-2 /hpf (0-2); Squamous Epithelial Cell Urine 0-5 /hpf (0-5); WBC Urine 0-5 /hpf (0-5)
--- NOTE | 2024-02-18 18:54 | PC.NURSE ---
Patient given 3rd dose of pain medication for 9/10 hip pain. Pt requesting soda and sandwich as well. Per provider, pt is okay to have whatever. Pt given sprite and sandwich per her request.
--- NOTE | 2024-02-18 19:04 | ED_ITS ---
HPI - Nausea/Vomiting/Diarrhea 2 General: Chief complaint: Nausea/Vomiting/Diarrhea Stated complaint: N/V Time Seen by Provider: 02/18/24 15:24 Related Data Previous Rx's Medication Instructions Recorded manual wheelchair #1 ea 10/03/19 TENS unit and equipment #1 ea 10/01/22 wheelchair #1 ea 10/14/22 CPAP 6-16cm setting #1 ea 11/23/22 CPAP mask, tubing, supplies #1 ea 11/23/22 Left wrist brace #1 ea 12/06/22 lancets #100 ea 01/24/23 lancets #200 ea 02/21/23 motorized electric scooter #1 ea 02/21/23 blood sugar diagnostic (Blood #200 ea 03/04/23 Glucose Test strips) blood sugar diagnostic (Blood #200 ea 03/16/23 Glucose Test strips) lancets #200 ea 03/16/23 naloxone 4 mg/actuation nasal 4 mg intranasal Q2M PRN opioid 03/16/23 spray (Narcan) overdose #2 ea pen needle, diabetic 30 gauge x #100 ea 03/17/23 5/16 (Pen Needle) dexcom G7 transmitter #1 ea 07/29/23 albuterol sulfate 90 mcg/actuation 2 puff inhalation Q6H PRN 08/17/23 aerosol inhaler shortness of breath or wheezing #8.5 grams aspirin 81 mg chewable tablet 81 mg PO QAM #60 tabs 08/17/23 atorvastatin 40 mg tablet (Lipitor) 40 mg PO BEDTIME #90 tabs 08/17/23 fluticasone 250 mcg-salmeterol 50 See Rx Instructions .Route 08/17/23 mcg/dose blistr powdr for .COMPLEX #60 ea inhalation (Advair Diskus) tiotropium bromide 18 mcg capsule 1 cap inhalation DAILY #60 08/17/23 with inhalation device (Spiriva inhalations with HandiHaler) ipratropium 0.5 mg-albuterol 3 mg 3 ml inhalation Q6H shortness of 11/03/23 (2.5 mg base)/3 mL nebulization breath or wheezing #180 mL soln blood-glucose sensor (Dexcom G7 #2 ea 11/22/23 Sensor device) duloxetine 30 mg capsule,delayed 30 mg PO BID #60 caps 11/22/23 release (Cymbalta) escitalopram oxalate 20 mg tablet 20 mg PO QAM #90 tabs 11/22/23 (Lexapro) nystatin 100,000 unit/gram topical 1 applic topical BID 2 weeks #30 11/22/23 ointment grams blood-glucose meter,continuous #1 ea 11/25/23 (Dexcom G7 Non Destructive Testing Scientist) benzonatate 200 mg capsule 200 mg PO BID PRN cough #60 caps 12/08/23 Seroquel XR 150 mg tablet,extended See Rx Instructions .Route 12/27/23 release (quetiapine) .COMPLEX #90 tabs baclofen 15 mg tablet 15 mg PO BID #60 tabs 12/27/23 gabapentin 600 mg tablet See Rx Instructions .Route 12/27/23 .COMPLEX #270 tabs nicotine 14 mg/24 hr daily 1 patch transdermal DAILY #28 ea 12/27/23 transdermal patch glipizide 10 mg tablet See Rx Instructions .Route 01/04/24 .COMPLEX #90 tabs meloxicam 15 mg tablet See Rx Instructions .Route 01/04/24 .COMPLEX #90 tabs insulin glargine 100 unit/mL (3 25 unit (0.25 mL) SUBCUT QAM #15 mL 01/18/24 mL) subcutaneous pen (Lantus Solostar U-100 Insulin) loperamide 2 mg tablet (Imodium 2 mg PO QID PRN loose stool #30 01/18/24 A-D) tabs famotidine 20 mg tablet See Rx Instructions .Route 01/26/24 .COMPLEX #60 tabs metformin 500 mg tablet 1,000 mg (2 x 500 mg) PO BID #180 02/03/24 tabs promethazine 25 mg tablet See Rx Instructions .Route 02/03/24 .COMPLEX #60 tabs morphine 15 mg tablet,extended 15 mg PO Q12H pain 30 days #60 tabs 02/06/24 release insulin lispro 100 unit/mL 6 unit (0.06 mL) SUBCUT TID #15 mL 02/13/24 subcutaneous pen (Admelog SoloStar U-100 Insulin lispro) hydrocodone 5 mg-acetaminophen 325 1 tab PO Q6H PRN pain 30 days #120 02/14/24 mg tablet tabs benzonatate 100 mg capsule 100 mg PO BID PRN cough #10 caps 02/18/24 levofloxacin 750 mg tablet 750 mg PO DAILY 5 days #5 tabs 02/18/24 Allergies Allergy/AdvReac Type Severity Reaction Status Date / Time ketorolac [From Toradol] Allergy Severe ALGY-Anaphy Verified 01/24/24 14:35 laxis Penicillins Allergy Severe ALGY-Anaphy Verified 01/24/24 14:35 laxis Sulfa (Sulfonamide Allergy Severe ALGY-Anaphy Verified 01/24/24 14:35 Antibiotics) laxis tetracycline Allergy Severe ALGY-Anaphy Verified 01/24/24 14:35 laxis lidocaine Allergy ALGY-Hives Verified 01/24/24 14:35 tramadol [From Ultram] Allergy ALGY-Difficulty Verified 01/24/24 14:35 Breathing PFSH ED 2 PFSH: Medical History Type 2 diabetes mellitus Hospital discharge follow-up Chronic hypercapnic respiratory failure Chronic respiratory failure with hypoxia Dyslipidemia Neuropathic pain, leg, bilateral Osteoarthritis IVELISSE (obstructive sleep apnea) GERD without esophagitis Chronic low back pain Pulmonary nodules Rheumatoid arthritis History of stroke Chronic cystitis delivery delivered Constipation Hematochezia Insomnia Community acquired pneumonia History of bipolar disorder History of hypertension Surgical History History of incisional hernia repair History of hysterectomy History of cholecystectomy History of tonsillectomy History of knee surgery Family History Mother , at age 78 COVID-19 Brother , at age 58 Cancer Colon Father , at age 45 Car occupant injured in traffic accident Cancer Colon Family/Other Cancer Paternal-lung Other Chronic kidney disease (CKD) Dementia Diabetes Hyperlipidemia Hypertension Lung disease Stroke Denies family history of CAD (coronary artery disease) Clotting disorder Psychiatric illness Anesthesia complication Bleeding disorder Social History Smoking and tobacco/nicotine status: current every day tobacco/nicotine user cigarettes Packs smoked per day: 0.5 Years cigarettes smoked: 30 [ Other cigarette details: Currently smoking 6-7/day] Quit status (tobacco/nicotine): considering quitting Alcohol intake: never Substance/Drug Use: former Adopted: No Lives independently: Yes Household members: spouse Marital status: Number of grandchildren: 2 Current occupational status: disabled Special sherine needs: No Agree to transfusion: Yes Female Reproductive History: Spontaneous abortions: No Course 2 Vital Signs: Vital signs: Vital Signs Temperature 98.1 F 02/18/24 15:25 Pulse Rate 92 02/18/24 18:53 Respiratory Rate 20 H 02/18/24 18:53 Blood Pressure 132/64 02/18/24 18:53 Pulse Oximetry 93 02/18/24 18:53 Oxygen Delivery Me thod Nasal Cannula 02/18/24 18:53 Oxygen Flow Rate 3 02/18/24 18:53 MDM - Nausea/Vomiting/Diarrhea Lab Data 02/18/24 15:11 02/18/24 15:11 Radiology Impressions Chest X-Ray 02/18/24 15:35 IMPRESSION: No acute findings. Chest CT 02/18/24 16:05 IMPRESSION: 1. Right upper lobe minimal atelectasis versus infiltrate anteriorly. 2. Multilevel bridging degenerative calcifications throughout the spine. 3. Hepatic steatosis. 4. Right thyroid lobe somewhat enlarged, consider correlation with ultrasound. 5. Right adrenal 28 mm indeterminate nodule, dedicated adrenal imaging could further characterize this. 6. Cholecystectomy. 7. Perinephric edema bilaterally likely reflecting renal insufficiency, please correlate for pyelonephritis. 8. Scattered subcentimeter short axis nonspecific mediastinal lymph nodes. 9. Main pulmonary artery is prominent which can be a finding of pulmonary hypertension. COMMENTS: Consistent with the [employer]'s Incidental Findings Committee white paper (J Am Mary Radiol 2017): For any incidental adrenal lesion greater than or equal to 1 cm but less than or equal to 4 cm classified in this report as benign, likely benign, or containing fat (including classification as an adenoma or myelolipoma), no follow-up imaging is recommended per consensus recommendations based on imaging criteria. Further lab evaluation could be pursued if warranted based on clinical findings. Laboratory Results WBC 9.82 10^3/uL (3.29-11.43) 02/18/24 15:11 RBC 4.07 10^6/uL (3.85-5.65) 02/18/24 15:11 Hgb 11.80 g/dL (11.27-16.99) 02/18/24 15:11 Hct 38.5 % (36-47) 02/18/24 15:11 MCV 94.6 fl (85-98) 02/18/24 15:11 MCH 29.0 pg (27-33) 02/18/24 15:11 MCHC 30.6 g/dL (30-55) 02/18/24 15:11 RDW 13.3 % (12.1-15.1) 02/18/24 15:11 Plt Count 193 10^3/cmm (157-399) 02/18/24 15:11 MPV 10.6 fL (7.4-10.4) H 02/18/24 15:11 Neut % (Auto) 54.6 % 02/18/24 15:11 Lymph % (Auto) 34.9 % 02/18/24 15:11 [place] % (Auto) 7.2 % 02/18/24 15:11 Eos % (Auto) 2.0 % 02/18/24 15:11 Baso % (Auto) 0.5 % 02/18/24 15:11 Neut # (Auto) 5.35 10^3/uL (1.8-7.7) 02/18/24 15:11 Lymph # (Auto) 3.4 10^3/uL (0.8-4.8) 02/18/24 15:11 [place] # (Auto) 0.7 10^3/uL (0.2-0.9) 02/18/24 15:11 Eos # (Auto) 0.2 10^3/uL (0.0-0.8) 02/18/24 15:11 Baso # (Auto) 0.1 10^3/uL (0.0-0.1) 02/18/24 15:11 Nucleated RBC % (auto) 0 % 02/18/24 15:11 Nucleated RBCs # 0.0 /100WBC 02/18/24 15:11 Sodium 141 mmol/L (136-145) 02/18/24 15:11 Potassium 4.3 mmol/L (3.5-5.1) 02/18/24 15:11 Chloride 103 mmol/L (98-107) 02/18/24 15:11 Carbon Dioxide 27 mmol/L (22-29) 02/18/24 15:11 Anion Gap 15.3 (5-19) 02/18/24 15:11 BUN 11 mg/dL (6-20) 02/18/24 15:11 Creatinine 0.5 mg/dL (0.5-0.9) 02/18/24 15:11 GFR Calculation 126.3 mL/min (90-130) 02/18/24 15:11 Glucose 185 mg/dL (65-115) H 02/18/24 15:11 Calculated Osmolality 296 mOsm/kg (285-295) H 02/18/24 15:11 Calcium 9.1 mg/dL (8.5-10.5) 02/18/24 15:11 Total Bilirubin 0.2 mg/dL (0.15-1.2) 02/18/24 15:11 AST 39 U/L (0-32) H 02/18/24 15:11 ALT 12 U/L (0-33) 02/18/24 15:11 Alkaline Phosphatase 81 U/L (35-105) 02/18/24 15:11 C-Reactive Protein 9.4 mg/L (0.0-4.9) H 02/18/24 15:11 Total Protein 7.1 g/dL (6.6-8.7) 02/18/24 15:11 Albumin 3.8 g/dL (3.5-5.2) 02/18/24 15:11 Globulin 3.3 g/dL (1.3-4.6) 02/18/24 15:11 Urine Color Yellow (Yellow) 02/18/24 18:09 Urine Appearance Clear (CLEAR) 02/18/24 18:09 Urine pH 5.5 (5-7) 02/18/24 18:09 Ur Specific Pope 1.030 (1.005-1.030) 02/18/24 18:09 Urine Protein Trace (Negative) A 02/18/24 18:09 Urine Glucose (UA) Negative (Normal) 02/18/24 18:09 Urine Ketones Trace (Negative) 02/18/24 18:09 Urine Blood Negative (Negative) 02/18/24 18:09 Urine Nitrate Negative (Negative) 02/18/24 18:09 Urine Bilirubin Negative (Negative) 02/18/24 18:09 Urine Urobilinogen 1.0 mg/dL (Negative) 02/18/24 18:09 Ur Leukocyte Esterase Negative (Negative) 02/18/24 18:09 Urine RBC 0-2 /hpf (0-2) 02/18/24 18:09 Urine WBC 0-5 /hpf (0-5) 02/18/24 18:09 Ur Squamous Epith Cells 0-5 /hpf (0-5) 02/18/24 18:09 Amorphous Sediment Not Reportable 02/18/24 18:09 Urine Bacteria 1+ /hpf (NONE) H 02/18/24 18:09 Hyaline Casts 0-4 /lpf H 02/18/24 18:09 Coronavirus (PCR) Negative (Negative) 02/18/24 15:35 Influenza A (PCR) Negative (Negative) 02/18/24 15:35 Influenza Type B (PCR) Negative (Negative) 02/18/24 15:35 RSV (PCR) Negative (Negative) 02/18/24 15:35 Discharge Plan Discharge Patient Disposition: Home Clinical Impression: Community acquired pneumonia, Avascular necrosis, COPD exacerbation, Chronic pain Hip pain Qualifiers: Laterality: left Qualified Code(s): M25.552 - Pain in left hip Condition: Stable Prescriptions: New benzonatate 100 mg capsule 100 mg PO BID PRN (Reason: cough) Qty: 10 0RF levofloxacin 750 mg tablet 750 mg PO DAILY 5 Days Qty: 5 0RF No Action (DME) manual wheelchair See Rx Instructions .Route .MEDSUPPLY Qty: 1 0RF Rx Instructions: As directed (DME) TENS unit and equipment See Rx Instructions .Route .MEDSUPPLY Qty: 1 0RF Rx Instructions: As directed nicotine 14 mg/24 hr patch 24 hour 1 patch transdermal DAILY Qty: 28 0RF baclofen 15 mg tablet 15 mg PO BID Qty: 60 2RF (DME) Left wrist brace See Rx Instructions .Route .MEDSUPPLY Qty: 1 0RF Rx Instructions: As directed (DME) lancets Misc See Rx Instructions .Route Qty: 100 0RF Rx Instructions: As directed (DME) lancets Misc See Rx Instructions .MEDSUPPLY Qty: 200 12RF Rx Instructions: Use as directed to prick skin for blood sugar checks (DME) motorized electric scooter See Rx Instructions .Route .MEDSUPPLY Qty: 1 0RF Rx Instructions: As directed (DME) Blood Glucose Test Strip See Rx Instructions .MEDSUPPLY Qty: 200 12RF Rx Instructions: Use as directed with glucometer to check blood sugar (DME) lancets Misc See Rx Instructions .MEDSUPPLY Qty: 200 12RF Rx Instructions: Use as directed to prick skin for blood sugar checks naloxone [Narcan] 4 mg/actuation spray,non-aerosol 4 mg intranasal Q2M PRN (Reason: opioid overdose) Qty: 2 0RF Rx Instructions: spray 1 dose into ONE nostril; alternate nostrils w each dose (DME) dexcom G7 transmitter See Rx Instructions .Route .MEDSUPPLY Qty: 1 2RF Rx Instructions: As directed escitalopram oxalate [Lexapro] 20 mg tablet 20 mg PO QAM Qty: 90 1RF nystatin 100,000 unit/gram ointment 1 applic topical BID 14 Days Qty: 30 0RF duloxetine [Cymbalta] 30 mg capsule,delayed release(DR/EC) 30 mg PO BID Qty: 60 2RF (DME) Dexcom G7 Sensor Device See Rx Instructions .Route Qty: 2 3RF Rx Instructions: As directed insulin glargine [Lantus Solostar U-100 Insulin] 100 unit/mL (3 mL) insulin pen 25 unit SUBCUT QAM Qty: 15 2RF loperamide [Imodium A-D] 2 mg tablet 2 mg PO QID PRN (Reason: loose stool) Qty: 30 0RF (DME) wheelchair See Rx Instructions .Route .MEDSUPPLY Qty: 1 0RF Rx Instructions: As directed (DME) CPAP 6-16cm setting See Rx Instructions .ROUTE .MEDSUPPLY Qty: 1 0RF Rx Instructions: As directed (DME) CPAP mask, tubing, supplies See Rx Instructions .ROUTE .MEDSUPPLY Qty: 1 1RF Rx Instructions: As directed (DME) Blood Glucose Test Strip See Rx Instructions .MEDSUPPLY Qty: 200 12RF Rx Instructions: Use as directed with glucometer to check blood sugar (DME) pen needle, diabetic [Pen Needle] 30 gauge x 5/16 needle See Rx Instructions .MEDSUPPLY Qty: 100 12RF Rx Instructions: Use as directed for insulin administration albuterol sulfate 90 mcg/actuation HFA aerosol inhaler 2 puff inhalation Q6H PRN (Reason: shortness of breath or wheezing) Qty: 8.5 3RF aspirin 81 mg tablet,chewable 81 mg PO QAM Qty: 60 0RF Lipitor 40 mg tablet 40 mg PO BEDTIME Qty: 90 1RF fluticasone propion-salmeterol [Advair Diskus] 250-50 mcg/dose blister with device See Rx Instructions .ROUTE .COMPLEX Qty: 60 3RF Dose Instruction: TAKE 1 PUFF BY MOUTH TWICE A DAY Rx Instructions: TAKE 1 PUFF BY MOUTH TWICE A DAY tiotropium bromide [Spiriva with HandiHaler] 18 mcg capsule, w/inhalation device 1 cap inhalation DAILY Qty: 60 6RF Rx Instructions: puncture 1 cap using device; one dose = 2 inhalations (DME) Dexcom G7 Non Destructive Testing Scientist Misc See Rx Instructions .Route Qty: 1 3RF Rx Instructions: As directed benzonatate 200 mg capsule 200 mg PO BID PRN (Reason: cough) Qty: 60 0RF gabapentin 600 mg tablet See Rx Instructions .ROUTE .COMPLEX Qty: 270 0RF Dose Instruction: TAKE 1 TABLET BY MOUTH THREE TIMES DAILY Rx Instructions: TAKE 1 TABLET BY MOUTH THREE TIMES DAILY quetiapine [Seroquel XR] 150 mg tablet extended release 24 hr See Rx Instructions .ROUTE .COMPLEX Qty: 90 0RF Dose Instruction: TAKE 1 TABLET BY MOUTH AT BEDTIME Rx Instructions: TAKE 1 TABLET BY MOUTH AT BEDTIME glipizide 10 mg tablet See Rx Instructions .ROUTE .COMPLEX Qty: 90 0RF Dose Instruction: TAKE 1 TABLET BY MOUTH EVERY DAY Rx Instructions: TAKE 1 TABLET BY MOUTH EVERY DAY meloxicam 15 mg tablet See Rx Instructions .ROUTE .COMPLEX Qty: 90 0RF Dose Instruction: TAKE 1 TABLET BY MOUTH IN THE MORNING Rx Instructions: TAKE 1 TABLET BY MOUTH IN THE MORNING famotidine 20 mg tablet See Rx Instructions .ROUTE .COMPLEX Qty: 60 1RF Dose Instruction: TAKE 1 TABLET BY MOUTH TWICE A DAY Rx Instructions: TAKE 1 TABLET BY MOUTH TWICE A DAY metformin 500 mg tablet 1,000 mg PO BID Qty: 180 1RF promethazine 25 mg tablet See Rx Instructions .ROUTE .COMPLEX Qty: 60 0RF Dose Instruction: TAKE 1 TABLET BY MOUTH THREE TIMES DAILY NEEDED FOR NAUSEA AND VOMITING Rx Instructions: TAKE 1 TABLET BY MOUTH THREE TIMES DAILY NEEDED FOR NAUSEA AND VOMITING morphine 15 mg tablet extended release 15 mg PO Q12H 30 Days Qty: 60 0RF insulin lispro [Admelog SoloStar U-100 Insulin] 100 unit/mL insulin pen 6 unit SUBCUT TID Qty: 15 2RF Rx Instructions: Please check blood sugar 3 times a day with meals, inject 2 units subcu for blood sugars between 101 and 200, 4 units for blood sugar between 201 and 300, 6 units for blood sugar above 300, hydrocodone-acetaminophen 5-325 mg tablet 1 tab PO Q6H PRN (Reason: pain) 30 Days Qty: 120 0RF ipratropium-albuterol 0.5 mg-3 mg(2.5 mg base)/3 mL solution for nebulization 3 ml inhalation Q6H Qty: 180 5RF Discharge Orders: Discharge ED (Routine); Ordered 02/18/24 Ordered By: Rigoberto Rodriguez Referrals: Robbie Burrell MD [Primary Care Provider] - Discharge Diet: Advance as tolerated Discharge Activity: Resume usual activity Patient Instructions: Community Acquired Pneumonia (ED), Opioid Safety, Pain Management Activity Restrictions/Additional Instructions: Please use your respiratory treatments previously prescribed Please take your antibiotics as prescribed Please return to the emergency department for new concerning or worsening symptoms. Call to see your primary care doctor next week. You need to discuss the findings on CT and have a recheck of todays complaints. Coding Level of Care Code ED Zig Zag Stitcher for Abdirahman Hill
[2024-02-18] MEDS: levoFLOXacin 750 mg Tablet PO (19:18)
== END 2024-02-18 20:08 | disposition home or self-care (01) ==
PROVIDERS: Emergency Provider Nurse Practitioner; PCP Family Medicine
DX: J18.9 Pneumonia, unspecified organism (principal); J44.1 Chronic obstructive pulmonary disease with (acute) exacerbation; G89.29 Other chronic pain; M87.00 Idiopathic aseptic necrosis of unspecified bone; M25.552 Pain in left hip
CPT/HCPCS: 36415; 71045; 71250; 80053; 81001; 85025; 86140; 87637; 94640; 96374; 96375; 96376; 99285; J1171; J2270; J2405; J2919; Q0144

== ENCOUNTER 2024-04-22 15:15 | Emergency (ER) | payer MEDICAID, SELFPAY ==
[2024-04-22 15:18] VITALS: BP 138/91; PULSE 101; RESP 18; TEMP 36.4; O2SAT 95; BMI 47.5
--- NOTE | 2024-04-22 15:29 | XRR_ITS ---
PROCEDURE INFORMATION: Exam: XR Left Wrist Exam date and time: 04/22/2024 4:00 PM Age: 58 years old Clinical indication: Wrist; Left; Lt shoulder pain post fall TECHNIQUE: Imaging protocol: Radiologic exam of the left wrist. Views: 3 or more views. COMPARISON: No relevant prior studies available. FINDINGS: Bones/joints: There is no evidence of acute fracture or subluxation involving the left wrist. There is a chronic appearing fracture of the ulnar styloid. The carpal bones are intact. Soft tissues: No significant soft tissue swelling seen. XR/XR wrist LT min 3V* [id number] IMPRESSION: No evidence of acute left wrist fracture.
--- NOTE | 2024-04-22 15:29 | XRR_ITS ---
PROCEDURE INFORMATION: Exam: XR Left Shoulder Exam date and time: 04/22/2024 4:05 PM Age: 58 years old Clinical indication: Injury or trauma; Lt shoulder pain post fall TECHNIQUE: Imaging protocol: Radiologic exam of the left shoulder. Views: 2 or more views. COMPARISON: CR XR shoulder LT min 2V* [id number] 07/24/2022 7:21 PM FINDINGS: Bones/joints: There is no evidence of acute fracture or subluxation involving the left shoulder. Acromioclavicular joint space demonstrates mild narrowing. There is mild osteophyte formation. Soft tissues: Normal. XR/XR shoulder LT min 2V* [id number] IMPRESSION: Mild left shoulder osteoarthritis.
--- NOTE | 2024-04-22 15:31 | W.ED.FALL ---
HPI - Fall General: Chief Complaint: Fall Stated Complaint: all over pain s/p fall Time Seen by Provider: 04/22/24 15:21 History of Present Illness: This patient is a 58 year old presenting with pain all over after she fell out of her wheelchair at about midnight last night. She was trying to scoot farther back in the chair and it slipped out from under her. She landed on her left hip and hit her left arm against the nearby wall, putting a hole in it. She has a history of avascular necrosis in the left hip and is going to have a replacement once she loses enough weight (she has lost 50 lbs and is now 350 lbs). She is on chronic pain control medications including Morphine 15 and [place] 7.5. She says that her last dose of morphine was 4 days ago because all the local pharmacies are having trouble sourcing the 15 mg tablets. She also says that she forgot to call her doctor on Tuesday to have him prescribe more. She does still have her hydro 7.5 - which she takes 1 q4 - 6 as needed. She last took one at 7 am. She says that she fell asleep after that and that is why she hasn't taken any more pain medicine. She called EMS to bring her in because she was not able to move when she woke up - due to her pain. Related Data Home Medications ?Medication ?Instructions ?Recorded ?Confirmed benzonatate 100 mg capsule 100 mg PO BID PRN Cough 04/22/24 04/22/24 famotidine 20 mg tablet 20 mg PO BID 04/22/24 04/22/24 gabapentin 600 mg tablet 600 mg PO TID 04/22/24 04/22/24 glipizide 10 mg tablet 10 mg PO DAILY 04/22/24 04/22/24 insulin lispro 100 unit/mL See Rx Instructions .Route .COMPLEX 04/22/24 04/22/24 subcutaneous pen (Admelog SoloStar U-100 Insulin lispro) meloxicam 15 mg tablet 15 mg PO QAM 04/22/24 04/22/24 promethazine 25 mg tablet 25 mg PO TID PRN Nausea And 04/22/24 04/22/24 Vomiting quetiapine 150 mg tablet,extended 150 mg PO BEDTIME 04/22/24 04/22/24 release 24 hr (Seroquel XR) Previous Rx's ?Medication ?Instructions ?Recorded manual wheelchair #1 ea 10/03/19 TENS unit and equipment #1 ea 10/01/22 wheelchair #1 ea 10/14/22 CPAP 6-16cm setting #1 ea 11/23/22 CPAP mask, tubing, supplies #1 ea 11/23/22 Left wrist brace #1 ea 12/06/22 lancets #100 ea 01/24/23 lancets #200 ea 02/21/23 motorized electric scooter #1 ea 02/21/23 blood sugar diagnostic (Blood #200 ea 03/04/23 Glucose Test strips) blood sugar diagnostic (Blood #200 ea 03/16/23 Glucose Test strips) lancets #200 ea 03/16/23 naloxone 4 mg/actuation nasal 4 mg intranasal Q2M PRN opioid 03/16/23 spray (Narcan) overdose #2 ea pen needle, diabetic 30 gauge x #100 ea 03/17/23 5/16 (Pen Needle) dexcom G7 transmitter #1 ea 07/29/23 albuterol sulfate 90 mcg/actuation 2 puff inhalation Q6H PRN 08/17/23 aerosol inhaler shortness of breath or wheezing #8.5 grams aspirin 81 mg chewable tablet 81 mg PO QAM #60 tabs 08/17/23 tiotropium bromide 18 mcg capsule 1 cap inhalation DAILY #60 08/17/23 with inhalation device (Spiriva inhalations with HandiHaler) escitalopram oxalate 20 mg tablet 20 mg PO QAM #90 tabs 11/22/23 (Lexapro) insulin glargine 100 unit/mL (3 25 unit (0.25 mL) SUBCUT QAM #15 mL 01/18/24 mL) subcutaneous pen (Lantus Solostar U-100 Insulin) loperamide 2 mg tablet (Imodium 2 mg PO QID PRN loose stool #30 01/18/24 A-D) tabs duloxetine 30 mg capsule,delayed 30 mg PO BID #180 caps 02/27/24 release (Cymbalta) blood-glucose meter,continuous #1 ea 03/06/24 (Dexcom G7 Corporate Health Consultant) nystatin 100,000 unit/gram topical 1 applic topical BID 2 weeks #30 03/16/24 ointment grams blood-glucose sensor (Dexcom G7 #2 ea 03/23/24 Sensor device) atorvastatin 40 mg tablet (Lipitor) 40 mg PO BEDTIME #90 tabs 04/05/24 metformin 500 mg tablet 1,000 mg (2 x 500 mg) PO BID #360 04/06/24 tabs hydrocodone 7.5 mg-acetaminophen 1 tab PO BID PRN pain 30 days #60 04/16/24 325 mg tablet tabs morphine 30 mg tablet,extended 30 mg PO .qdaily pain 29 days #29 04/25/24 release (MS Contin) tabs Allergies Allergy/AdvReac Type Severity Reaction Status Date / Time ketorolac (From Toradol) Allergy Severe ALGY-Anaphy Verified 03/16/24 09:48 laxis Penicillins Allergy Severe ALGY-Anaphy Verified 03/16/24 09:48 laxis Sulfa (Sulfonamide Allergy Severe ALGY-Anaphy Verified 03/16/24 09:48 Antibiotics) laxis tetracycline Allergy Severe ALGY-Anaphy Verified 03/16/24 09:48 laxis lidocaine Allergy ALGY-Hives Verified 03/16/24 09:48 tramadol (From Ultram) Allergy ALGY-Difficulty Verified 03/16/24 09:48 Breathing PFS ED PFSH: Medical History (Updated 04/22/24 @ 17:33 by Rhonda Drew MD) Adrenal mass Type 2 diabetes mellitus Hospital discharge follow-up Chronic hypercapnic respiratory failure Chronic respiratory failure with hypoxia Dyslipidemia Neuropathic pain, leg, bilateral Osteoarthritis IVELISSE (obstructive sleep apnea) GERD without esophagitis Chronic low back pain Pulmonary nodules Rheumatoid arthritis History of stroke Chronic cystitis delivery delivered Constipation Hematochezia Insomnia Community acquired pneumonia History of bipolar disorder History of hypertension Surgical History History of incisional hernia repair History of hysterectomy History of cholecystectomy History of tonsillectomy History of knee surgery Family History Mother , at age 78 COVID-19 Brother , at age 58 Cancer Colon Father , at age 45 Car occupant injured in traffic accident Cancer Colon Family/Other Cancer Paternal-lung Other Chronic kidney disease (CKD) Dementia Diabetes Hyperlipidemia Hypertension Lung disease Stroke Denies family history of CAD (coronary artery disease) Clotting disorder Psychiatric illness Anesthesia complication Bleeding disorder Social History Smoking and tobacco/nicotine status: current every day tobacco/nicotine user cigarettes Packs smoked per day: 0.5 Years cigarettes smoked: 30 [ Other cigarette details: Currently smoking 6-7/day] Quit status (tobacco/nicotine): considering quitting Alcohol intake: never Substance/Drug Use: former Adopted: No Lives independently: Yes Household members: spouse Marital status: Number of grandchildren: 2 Current occupational status: disabled Special sherine needs: No Agree to transfusion: Yes Female Reproductive History: Spontaneous abortions: No Physical Exam Const: GENERAL APPEARANCE: in distress and anxious NUTRITIONAL APPEARANCE: obese Eye: COMMON NORMALS: Equal, round and reactive pupils present and EOMs intact bilaterally PUPIL: Yes Equal, round and reactive pupils present Neck/C-Spine: COMMON NORMALS: full ROM and supple CERVICAL SPINE: No Cervical spine tenderness Resp: COMMON NORMALS: normal respiratory effort and No retractions EFFORT & INSPECTION: Yes able to speak in complete sentences Cardio: COMMON NORMALS: regular rate and regular rhythm RATE: regular rate RHYTHM: regular rhythm GI: COMMON NORMALS: non-tender Back/Pelvis: OTHER: tenderness in the entire region of the left hip and entire lumbar spine area Extremity: NARRATIVE EXTREMITY EXAM: left upper extremity - redness and tenderness on the dorsum of the left wrist including the distal third of the forearm. Pain with any ROM of the arm. Shoulder also diffusely tender to palpation and any attempts at ROM Neuro: COMMON NORMALS: no focal motor deficits and no sensory deficits noted Psych: OTHER: tearful Course Vital Signs: Vital signs: Vital Signs Temperature 97.6 F 04/22/24 15:18 Pulse Rate 87 04/22/24 18:40 Respiratory Rate 18 04/22/24 15:18 Blood Pressure 100/83 04/22/24 18:40 Pulse Oximetry 95 04/22/24 18:40 Oxygen Delivery Me thod Room Air 04/22/24 17:34 MDM - Fall Medical Decision Making CT of the lumbar spine and hips/pelvis done as xray was not feasible due to her size. These were negative for any acute findings. Xrays of the left arm - shoulder and wrist - were also negative for anything acute. She was given hydrocodone - 10 mg and said it didn't do anything for her pain. She was then given morphine 8 mg IM and will be discharged. She has good outpatient care and there is no indication for admission or further work up at this point. Lab Data Radiology Impressions Shoulder X-Ray 04/22/24 15:29 IMPRESSION: Mild left shoulder osteoarthritis. Wrist X-Ray 04/22/24 15:29 IMPRESSION: No evidence of acute left wrist fracture. Lumbar Spine CT 04/22/24 15:52 IMPRESSION: 1. Moderate multilevel spondylosis of the lumbar spine without evidence of acute compression deformity or subluxation. 2. Left renal cyst partially visualized. This was noted to be a simple cyst on a prior CT from 11/22/2021. COMMENTS: Consistent with the [employer]'s Incidental Findings Committee white paper (J Am Mary Radiol 2018): Any incidental renal lesion less than 1 cm or classified as too small to characterize, or any incidental cystic renal lesion characterized as simple-appearing, is likely benign. No follow-up imaging is recommended for these lesions per consensus recommendations based on imaging criteria. Pelvis CT 04/22/24 15:53 IMPRESSION: 1. No evidence of acute pelvic fracture. 2. Moderate bilateral hip osteoarthritis. 3. Prior hysterectomy. All radiology interpretation(s) finalized by discharge Discharge Plan Discharge Patient Disposition: Home Clinical Impression: Fall, Chronic pain, Contusion of left wrist, Arthritis of shoulder Condition: Stable Prescriptions: No Action (DME) manual wheelchair See Rx Instructions .Route .MEDSUPPLY Qty: 1 0RF Rx Instructions: As directed (DME) TENS unit and equipment See Rx Instructions .Route .MEDSUPPLY Qty: 1 0RF Rx Instructions: As directed (DME) Left wrist brace See Rx Instructions .Route .MEDSUPPLY Qty: 1 0RF Rx Instructions: As directed (DME) lancets Misc See Rx Instructions .Route Qty: 100 0RF Rx Instructions: As directed (DME) lancets Misc See Rx Instructions .MEDSUPPLY Qty: 200 12RF Rx Instructions: Use as directed to prick skin for blood sugar checks (DME) motorized electric scooter See Rx Instructions .Route .MEDSUPPLY Qty: 1 0RF Rx Instructions: As directed (DME) Blood Glucose Test Strip See Rx Instructions .MEDSUPPLY Qty: 200 12RF Rx Instructions: Use as directed with glucometer to check blood sugar (DME) lancets Misc See Rx Instructions .MEDSUPPLY Qty: 200 12RF Rx Instructions: Use as directed to prick skin for blood sugar checks naloxone [Narcan] 4 mg/actuation spray,non-aerosol 4 mg intranasal Q2M PRN (Reason: opioid overdose) Qty: 2 0RF (DME) dexcom G7 transmitter See Rx Instructions .Route .MEDSUPPLY Qty: 1 2RF Rx Instructions: As directed escitalopram oxalate [Lexapro] 20 mg tablet 20 mg PO QAM Qty: 90 1RF insulin glargine [Lantus Solostar U-100 Insulin] 100 unit/mL (3 mL) insulin pen 25 unit SUBCUT QAM Qty: 15 2RF loperamide [Imodium A-D] 2 mg tablet 2 mg PO QID PRN (Reason: loose stool) Qty: 30 0RF nystatin 100,000 unit/gram ointment 1 applic topical BID 14 Days Qty: 30 0RF (DME) wheelchair See Rx Instructions .Route .MEDSUPPLY Qty: 1 0RF Rx Instructions: As directed (DME) CPAP 6-16cm setting See Rx Instructions .ROUTE .MEDSUPPLY Qty: 1 0RF Rx Instructions: As directed (DME) CPAP mask, tubing, supplies See Rx Instructions .ROUTE .MEDSUPPLY Qty: 1 1RF Rx Instructions: As directed (DME) Blood Glucose Test Strip See Rx Instructions .MEDSUPPLY Qty: 200 12RF Rx Instructions: Use as directed with glucometer to check blood sugar (DME) pen needle, diabetic [Pen Needle] 30 gauge x 5/16 needle See Rx Instructions .MEDSUPPLY Qty: 100 12RF Rx Instructions: Use as directed for insulin administration albuterol sulfate 90 mcg/actuation HFA aerosol inhaler 2 puff inhalation Q6H PRN (Reason: shortness of breath or wheezing) Qty: 8.5 3RF aspirin 81 mg tablet,chewable 81 mg PO QAM Qty: 60 0RF tiotropium bromide [Spiriva with HandiHaler] 18 mcg capsule, w/inhalation device 1 cap inhalation DAILY Qty: 60 6RF Rx Instructions: puncture 1 cap using device; one dose = 2 inhalations duloxetine [Cymbalta] 30 mg capsule,delayed release(DR/EC) 30 mg PO BID Qty: 180 1RF (DME) Dexcom G7 Corporate Health Consultant Misc See Rx Instructions .Route Qty: 1 3RF Rx Instructions: As directed (DME) Dexcom G7 Sensor Device See Rx Instructions .Route Qty: 2 3RF Rx Instructions: As directed Lipitor 40 mg tablet 40 mg PO BEDTIME Qty: 90 1RF metformin 500 mg tablet 1,000 mg PO BID Qty: 360 0RF hydrocodone-acetaminophen 7.5-325 mg tablet 1 tab PO BID PRN (Reason: pain) 30 Days Qty: 60 0RF morphine [MS Contin] 30 mg tablet extended release 30 mg PO .qdaily 29 Days Qty: 29 0RF benzonatate 100 mg capsule 100 mg PO BID PRN (Reason: Cough) promethazine 25 mg tablet 25 mg PO TID PRN (Reason: Nausea And Vomiting) gabapentin 600 mg tablet 600 mg PO TID meloxicam 15 mg tablet 15 mg PO QAM glipizide 10 mg tablet 10 mg PO DAILY famotidine 20 mg tablet 20 mg PO BID insulin lispro [Admelog SoloStar U-100 Insulin] 100 unit/mL insulin pen See Rx Instructions .ROUTE .COMPLEX Rx Instructions: Please check blood sugar 3 times a day with meals, inject 2 units subcu for blood sugars between 101 and 200, 4 units for blood sugar between 201 and 300, 6 units for blood sugar above 300, quetiapine [Seroquel XR] 150 mg tablet extended release 24 hr 150 mg PO BEDTIME Discharge Orders: Discharge ED (Routine); Ordered 04/22/24 Ordered By: Rhonda Drew Referrals: Robbie Burrell MD [Primary Care Provider] - Discharge Diet: Usual diet Discharge Activity: Increase activity as tolerated Patient Instructions: Opioid Safety, Pain Management Activity Restrictions/Additional Instructions: Follow up with your outpatient providers for further management of your pain. Print Language: Upper Sorbian Coding Level of Care Code ED Cell Cleaner for Abdirahman Hill
[2024-04-22] MEDS: HYDROcodone-acetaminophen 5-325 mg Tablet 2 TAB PO (15:50)
[2024-04-22 15:52] VITALS: BP 138/89; PULSE 93; O2SAT 96
--- NOTE | 2024-04-22 15:52 | CTR_ITS ---
PROCEDURE INFORMATION: Exam: CT Lumbar Spine Without Contrast Exam date and time: 04/22/2024 3:29 PM Age: 58 years old Clinical indication: Injury or trauma; Fall; Blunt trauma (contusions or hematomas); Additional info: Lower back pain after fall TECHNIQUE: Imaging protocol: Computed tomography of the lumbar spine without contrast. Radiation optimization: All CT scans at this facility use at least one of these dose optimization techniques: automated exposure control; mA and/or kV adjustment per patient size (includes targeted exams where dose is matched to clinical indication); or iterative reconstruction. COMPARISON: MR lumbar spine wo con* [id number] 05/27/2023 3:19 PM RADIATION DOSE METRICS: Total DLP (mGy-cm): 1510.7 FINDINGS: Bones/joints: There is generalized osteopenia. There is no evidence of acute compression deformity or subluxation involving the lumbar spine. There are moderate multilevel degenerative changes with multilevel disc space narrowing and osteophyte formation. Findings are most prominently noted from L3 through L5 levels. Kidneys and ureters: A left renal parapelvic cyst is partially visualized. Soft tissues: Unremarkable. CT/CT lumbar spine wo con* [id number] IMPRESSION: 1. Moderate multilevel spondylosis of the lumbar spine without evidence of acute compression deformity or subluxation. 2. Left renal cyst partially visualized. This was noted to be a simple cyst on a prior CT from 11/22/2021. COMMENTS: Consistent with the [employer]'s Incidental Findings Committee white paper (J Am Mary Radiol 2018): Any incidental renal lesion less than 1 cm or classified as too small to characterize, or any incidental cystic renal lesion characterized as simple-appearing, is likely benign. No follow-up imaging is recommended for these lesions per consensus recommendations based on imaging criteria.
--- NOTE | 2024-04-22 15:53 | CTR_ITS ---
PROCEDURE INFORMATION: Exam: CT Pelvis Without Contrast, Skeleton Exam date and time: 04/22/2024 3:29 PM Age: 58 years old Clinical indication: Hip pain; Left hip; Additional info: Lt hip pain post fall TECHNIQUE: Imaging protocol: Computed tomography of the pelvis without contrast. Exam focused on the skeleton. Radiation optimization: All CT scans at this facility use at least one of these dose optimization techniques: automated exposure control; mA and/or kV adjustment per patient size (includes targeted exams where dose is matched to clinical indication); or iterative reconstruction. COMPARISON: CT chest abdpel w/*[id number] 10/31/2023 8:11 PM RADIATION DOSE METRICS: Total DLP (mGy-cm): 1541.3 FINDINGS: Reproductive: There has been prior hysterectomy. Bones/joints: The bony pelvis is intact without evidence of acute fracture there is moderate osteoarthritis of bilateral hip joints with joint space narrowing, osteophyte formation and bilateral femoral head subchondral lucencies. Soft tissues: There is no pelvic hematoma seen. CT/CT pelvis wo con [id number] IMPRESSION: 1. No evidence of acute pelvic fracture. 2. Moderate bilateral hip osteoarthritis. 3. Prior hysterectomy.
[2024-04-22 17:34] VITALS: BP 166/103; PULSE 89; O2SAT 93
[2024-04-22] MEDS: morphine 4 mg/mL SDV 1 mL 8 MG IM (17:40)
[2024-04-22 18:40] VITALS: BP 100/83; PULSE 87; O2SAT 95
== END 2024-04-22 18:35 | disposition home or self-care (01) ==
PROVIDERS: Emergency Provider Emergency Medicine; PCP Family Medicine
DX: S60.212A Contusion of left wrist, initial encounter (principal); M19.012 Primary osteoarthritis, left shoulder; M54.50 Low back pain, unspecified; G89.29 Other chronic pain; Z79.4 Long term (current) use of insulin; Z79.82 Long term (current) use of aspirin; Z79.84 Long term (current) use of oral hypoglycemic drugs; F17.210 Nicotine dependence, cigarettes, uncomplicated; E11.9 Type 2 diabetes mellitus without complications; E78.5 Hyperlipidemia, unspecified; W05.0XXA Fall from non-moving wheelchair, initial encounter
CPT/HCPCS: 72131; 72192; 73030; 73110; 96372; 99284; J2270

== ENCOUNTER 2024-06-05 18:11 | Emergency (ER) | payer MEDICAID, SELFPAY ==
--- NOTE | 2024-06-05 18:12 | XRR_ITS ---
PROCEDURE INFORMATION: Exam: XR Chest Exam date and time: 06/05/2024 6:17 PM Age: 58 years old Clinical indication: Chest wall pain; Additional info: Cp TECHNIQUE: Imaging protocol: Radiologic exam of the chest. Views: 1 view. COMPARISON: CT chest con [id number] 02/18/2024 4:24 PM FINDINGS: Lungs: Unremarkable. No consolidation. Pleural spaces: Unremarkable. No pleural effusion. No pneumothorax. Heart/Mediastinum: Unremarkable. No cardiomegaly. Bones/joints: Unremarkable. XR/XR chest 1V portable [id number] IMPRESSION: No acute findings.
[2024-06-05 18:15] VITALS: BP 166/108; PULSE 98; RESP 18; TEMP 36.7; O2SAT 93
--- NOTE | 2024-06-05 18:15 | ECG_ITS ---
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 Measurements Intervals [place] Rate: 97 P: 52 TN: 178 QRS: -20 QRSD: 118 T: 85 QT: 358 QTc: 455 Interpretive Statements SINUS RHYTHM WITH OCCASIONAL VENTRICULAR PREMATURE COMPLEXES LEFT VENTRICULAR HYPERTROPHY AND ST-T CHANGE [VOLTAGE CRITERIA PLUS ST/T ABNORMALITY] Compared to ECG 11/14/2023 23:43:20 Left ventricular hypertrophy now present ST (T wave) deviation now present T-wave abnormality no longer present Electronically Signed On 06-05-2024 21:17:54 CDT by Мария Encinas M.D. [email or web address]
--- NOTE | 2024-06-05 18:22 | W.ED.CHESTPA ---
HPI - Chest Pain General: Chief Complaint: Chest Pain Stated Complaint: Chest Pain Time Seen by Provider: 06/05/24 18:17 Source: patient Mode of arrival: ambulatory Limitations: no limitations History of Present Illness: 58-year-old female states she has been having sharp chest pain since yesterday. She states she had been lifting things and packing a bag then has been having sharp pain since then. States much worse with movement along with palpation she denies any shortness of breath denies any nausea denies any radiation of her pain. Associated symptoms: Deny abdominal pain, dyspnea, fever(s), nausea or vomiting Related Data Home Medications ?Medication ?Instructions ?Recorded ?Confirmed benzonatate 100 mg capsule 100 mg PO BID PRN Cough 04/22/24 04/22/24 gabapentin 600 mg tablet 600 mg PO TID 04/22/24 04/22/24 glipizide 10 mg tablet 10 mg PO DAILY 04/22/24 04/22/24 insulin lispro 100 unit/mL See Rx Instructions .Route .COMPLEX 04/22/24 04/22/24 subcutaneous pen (Admelog SoloStar U-100 Insulin lispro) meloxicam 15 mg tablet 15 mg PO QAM 04/22/24 04/22/24 quetiapine 150 mg tablet,extended 150 mg PO BEDTIME 04/22/24 04/22/24 release 24 hr (Seroquel XR) Previous Rx's ?Medication ?Instructions ?Recorded manual wheelchair #1 ea 10/03/19 TENS unit and equipment #1 ea 10/01/22 wheelchair #1 ea 10/14/22 CPAP 6-16cm setting #1 ea 11/23/22 CPAP mask, tubing, supplies #1 ea 11/23/22 Left wrist brace #1 ea 12/06/22 lancets #100 ea 01/24/23 lancets #200 ea 02/21/23 motorized electric scooter #1 ea 02/21/23 blood sugar diagnostic (Blood #200 ea 03/04/23 Glucose Test strips) blood sugar diagnostic (Blood #200 ea 03/16/23 Glucose Test strips) lancets #200 ea 03/16/23 naloxone 4 mg/actuation nasal 4 mg intranasal Q2M PRN opioid 03/16/23 spray (Narcan) overdose #2 ea pen needle, diabetic 30 gauge x #100 ea 03/17/23 5/16 (Pen Needle) dexcom G7 transmitter #1 ea 07/29/23 albuterol sulfate 90 mcg/actuation 2 puff inhalation Q6H PRN 08/17/23 aerosol inhaler shortness of breath or wheezing #8.5 grams aspirin 81 mg chewable tablet 81 mg PO QAM #60 tabs 08/17/23 tiotropium bromide 18 mcg capsule 1 cap inhalation DAILY #60 08/17/23 with inhalation device (Spiriva inhalations with HandiHaler) escitalopram oxalate 20 mg tablet 20 mg PO QAM #90 tabs 11/22/23 (Lexapro) insulin glargine 100 unit/mL (3 25 unit (0.25 mL) SUBCUT QAM #15 mL 01/18/24 mL) subcutaneous pen (Lantus Solostar U-100 Insulin) loperamide 2 mg tablet (Imodium 2 mg PO QID PRN loose stool #30 01/18/24 A-D) tabs duloxetine 30 mg capsule,delayed 30 mg PO BID #180 caps 02/27/24 release (Cymbalta) blood-glucose meter,continuous #1 ea 03/06/24 (Dexcom G7 Preprint Analyst) blood-glucose sensor (Dexcom G7 #2 ea 03/23/24 Sensor device) atorvastatin 40 mg tablet (Lipitor) 40 mg PO BEDTIME #90 tabs 04/05/24 metformin 500 mg tablet 1,000 mg (2 x 500 mg) PO BID #360 04/06/24 tabs nystatin 100,000 unit/gram topical 1 applic topical BID 2 weeks #30 05/01/24 ointment grams famotidine 20 mg tablet 20 mg PO BID #60 tabs 05/04/24 promethazine 25 mg tablet 25 mg PO TID PRN Nausea And 05/10/24 Vomiting #90 tabs hydrocodone 5 mg-acetaminophen 325 1 tab PO BID PRN pain 30 days #60 05/17/24 mg tablet tabs morphine 30 mg tablet,extended 30 mg PO .qdaily pain 30 days #30 05/28/24 release (MS Contin) tabs Allergies Allergy/AdvReac Type Severity Reaction Status Date / Time ketorolac (From Toradol) Allergy Severe ALGY-Anaphy Verified 03/16/24 09:48 laxis Penicillins Allergy Severe ALGY-Anaphy Verified 03/16/24 09:48 laxis Sulfa (Sulfonamide Allergy Severe ALGY-Anaphy Verified 03/16/24 09:48 Antibiotics) laxis tetracycline Allergy Severe ALGY-Anaphy Verified 03/16/24 09:48 laxis lidocaine Allergy ALGY-Hives Verified 03/16/24 09:48 tramadol (From Ultram) Allergy ALGY-Difficulty Verified 03/16/24 09:48 Breathing Review of Systems Const: Denies: fever(s), chills, body aches or change in appetite Eyes: Denies: blurry vision or eye discomfort ENMT: Denies: throat pain or dental pain Card: Reports: chest pain Resp: Denies: dyspnea GI: Denies: abdominal pain, nausea, vomiting or diarrhea Musc: Denies: neck pain or back pain Skin/Breast: Denies: rash Neuro: Denies: headache(s) PFSH ED PFSH: Medical History Adrenal mass Type 2 diabetes mellitus Hospital discharge follow-up Chronic hypercapnic respiratory failure Chronic respiratory failure with hypoxia Dyslipidemia Neuropathic pain, leg, bilateral Osteoarthritis IVELISSE (obstructive sleep apnea) GERD without esophagitis Chronic low back pain Pulmonary nodules Rheumatoid arthritis History of stroke Chronic cystitis delivery delivered Constipation Hematochezia Insomnia Community acquired pneumonia History of bipolar disorder History of hypertension Surgical History History of incisional hernia repair History of hysterectomy History of cholecystectomy History of tonsillectomy History of knee surgery Family History Mother , at age 78 COVID-19 Brother , at age 58 Cancer Colon Father , at age 45 Car occupant injured in traffic accident Cancer Colon Family/Other Cancer Paternal-lung Other Chronic kidney disease (CKD) Dementia Diabetes Hyperlipidemia Hypertension Lung disease Stroke Denies family history of CAD (coronary artery disease) Clotting disorder Psychiatric illness Anesthesia complication Bleeding disorder Social History Smoking and tobacco/nicotine status: current every day tobacco/nicotine user cigarettes Packs smoked per day: 0.5 Years cigarettes smoked: 30 [ Other cigarette details: Currently smoking 6-7/day] Quit status (tobacco/nicotine): considering quitting Alcohol intake: never Substance/Drug Use: former Adopted: No Lives independently: Yes Household members: spouse Marital status: Number of grandchildren: 2 Current occupational status: disabled Special sherine needs: No Agree to transfusion: Yes Female Reproductive History: Spontaneous abortions: No Physical Exam Const: COMMON NORMALS: no acute distress, patient oriented x3 and healthy appearing HENMT: COMMON NORMALS: normocephalic and atraumatic HEAD & SCALP: normocephalic and atraumatic Eye: COMMON NORMALS: conjunctivae normal CONJUNCTIVA: Yes conjunctivae normal Neck/C-Spine: COMMON NORMALS: full ROM and supple Chest: COMMONS NORMALS: normal inspection of the chest OTHER: point tender in center of chest Resp: COMMON NORMALS: normal respiratory effort, No retractions, No use of accessory muscles and clear to auscultation bilaterally AUSCULTATION: clear to auscultation bilaterally Cardio: COMMON NORMALS: regular rate, regular rhythm and No murmurs present (Cardio) RATE: regular rate RHYTHM: regular rhythm GI: COMMON NORMALS: Normal to inspection, nondistended, normoactive bowel sounds present, Soft to palpation, non-tender and no masses PALPATION: Yes Soft to palpation Extremity: COMMON NORMALS: normal to inspection and full ROM Neuro: COMMON NORMALS: patient oriented x3, moves all extremities and no focal motor deficits Psych: COMMON NORMALS: mental status grossly normal, Normal thought process present and cooperative THOUGHT PROCESS: Normal thought process present Skin: COMMON NORMALS: no rashes or lesions noted and no wounds GENERAL SKIN EXAM: no rashes or lesions noted Course Vital Signs: Vital signs: Vital Signs Temperature 98.0 F 06/05/24 18:15 Pulse Rate 96 06/05/24 18:26 Respiratory Rate 18 06/05/24 18:25 Blood Pressure 166/108 06/05/24 18:26 Pulse Oximetry 97 06/05/24 18:26 Oxygen Delivery Me thod Room Air 06/05/24 18:26 MDM - Chest Pain Medical Decision Making Patient presents for chest pain likely chest wall pain she is point tender in the center of her chest her troponin here is negative no signs of ACS she stable for discharge follow-up with PCP return if worsening. Medical Records I reviewed the patient's medical records. Lab Data I reviewed the patient's lab results. 06/05/24 18:36 06/05/24 18:36 Laboratory Results WBC 11.59 10^3/uL (3.29-11.43) H 06/05/24 18:36 RBC 4.35 10^6/uL (3.85-5.65) 06/05/24 18:36 Hgb 12.30 g/dL (11.27-16.99) 06/05/24 18:36 Hct 39.2 % (36-47) 06/05/24 18:36 MCV 90.1 fl (85-98) 06/05/24 18:36 MCH 28.3 pg (27-33) 06/05/24 18:36 MCHC 31.4 g/dL (30-55) 06/05/24 18:36 RDW 13.2 % (12.1-15.1) 06/05/24 18:36 Plt Count 202 10^3/cmm (157-399) 06/05/24 18:36 MPV 10.2 fL (7.4-10.4) 06/05/24 18:36 Neut % (Auto) 60.8 % 06/05/24 18:36 Lymph % (Auto) 30.5 % 06/05/24 18:36 [place] % (Auto) 6.7 % 06/05/24 18:36 Eos % (Auto) 1.4 % 06/05/24 18:36 Baso % (Auto) 0.3 % 06/05/24 18:36 Neut # (Auto) 7.03 10^3/uL (1.8-7.7) 06/05/24 18:36 Lymph # (Auto) 3.5 10^3/uL (0.8-4.8) 06/05/24 18:36 [place] # (Auto) 0.8 10^3/uL (0.2-0.9) 06/05/24 18:36 Eos # (Auto) 0.2 10^3/uL (0.0-0.8) 06/05/24 18:36 Baso # (Auto) 0.0 10^3/uL (0.0-0.1) 06/05/24 18:36 Nucleated RBC % (auto) 0 % 06/05/24 18:36 Nucleated RBCs # 0.0 /100WBC 06/05/24 18:36 PT 13.00 SECONDS (12.1-14.9) 06/05/24 18:36 INR 0.92 (0.8-1.2) 06/05/24 18:36 Sodium 139 mmol/L (136-145) 06/05/24 18:36 Potassium 4.0 mmol/L (3.5-5.1) 06/05/24 18:36 Chloride 101 mmol/L (98-107) 06/05/24 18:36 Carbon Dioxide 24 mmol/L (22-29) 06/05/24 18:36 Anion Gap 18.0 (5-19) 06/05/24 18:36 BUN 9 mg/dL (6-20) 06/05/24 18:36 Creatinine 0.5 mg/dL (0.5-0.9) 06/05/24 18:36 GFR Calculation 126.3 mL/min (90-130) 06/05/24 18:36 Glucose 203 mg/dL (65-115) H 06/05/24 18:36 Calculated Osmolality 292 mOsm/kg (285-295) 06/05/24 18:36 Calcium 9.5 mg/dL (8.5-10.5) 06/05/24 18:36 Total Bilirubin 0.2 mg/dL (0.15-1.2) 06/05/24 18:36 AST 34 U/L (0-32) H 06/05/24 18:36 ALT 13 U/L (0-33) 06/05/24 18:36 Alkaline Phosphatase 79 U/L (35-105) 06/05/24 18:36 Troponin T Baseline 10 ng/L (0-10) 06/05/24 18:36 Total Protein 7.0 g/dL (6.6-8.7) 06/05/24 18:36 Albumin 4.0 g/dL (3.5-5.2) 06/05/24 18:36 Globulin 3.0 g/dL (1.3-4.6) 06/05/24 18:36 Lipase 41 U/L (13-60) 06/05/24 18:36 All radiology interpretation(s) finalized by discharge EKG Data EKG 1: I personally reviewed and interpreted this EKG as follows: EKG interpretation date: 06/05/24 EKG interpretation time: 18:15 Interpretation: nsr hr [address] elevation qrs 118 qtc 412 Discharge Plan Discharge Patient Disposition: Home Clinical Impression: Chest wall pain Condition: Stable Prescriptions: No Action (DME) manual wheelchair See Rx Instructions .Route .MEDSUPPLY Qty: 1 0RF Rx Instructions: As directed (DME) TENS unit and equipment See Rx Instructions .Route .MEDSUPPLY Qty: 1 0RF Rx Instructions: As directed (DME) Left wrist brace See Rx Instructions .Route .MEDSUPPLY Qty: 1 0RF Rx Instructions: As directed (DME) lancets Misc See Rx Instructions .Route Qty: 100 0RF Rx Instructions: As directed (DME) lancets Misc See Rx Instructions .MEDSUPPLY Qty: 200 12RF Rx Instructions: Use as directed to prick skin for blood sugar checks (DME) motorized electric scooter See Rx Instructions .Route .MEDSUPPLY Qty: 1 0RF Rx Instructions: As directed (DME) Blood Glucose Test Strip See Rx Instructions .MEDSUPPLY Qty: 200 12RF Rx Instructions: Use as directed with glucometer to check blood sugar (DME) lancets Misc See Rx Instructions .MEDSUPPLY Qty: 200 12RF Rx Instructions: Use as directed to prick skin for blood sugar checks naloxone [Narcan] 4 mg/actuation spray,non-aerosol 4 mg intranasal Q2M PRN (Reason: opioid overdose) Qty: 2 0RF (DME) dexcom G7 transmitter See Rx Instructions .Route .MEDSUPPLY Qty: 1 2RF Rx Instructions: As directed escitalopram oxalate [Lexapro] 20 mg tablet 20 mg PO QAM Qty: 90 1RF insulin glargine [Lantus Solostar U-100 Insulin] 100 unit/mL (3 mL) insulin pen 25 unit SUBCUT QAM Qty: 15 2RF loperamide [Imodium A-D] 2 mg tablet 2 mg PO QID PRN (Reason: loose stool) Qty: 30 0RF (DME) wheelchair See Rx Instructions .Route .MEDSUPPLY Qty: 1 0RF Rx Instructions: As directed (DME) CPAP 6-16cm setting See Rx Instructions .ROUTE .MEDSUPPLY Qty: 1 0RF Rx Instructions: As directed (DME) CPAP mask, tubing, supplies See Rx Instructions .ROUTE .MEDSUPPLY Qty: 1 1RF Rx Instructions: As directed (DME) Blood Glucose Test Strip See Rx Instructions .MEDSUPPLY Qty: 200 12RF Rx Instructions: Use as directed with glucometer to check blood sugar (DME) pen needle, diabetic [Pen Needle] 30 gauge x 5/16 needle See Rx Instructions .MEDSUPPLY Qty: 100 12RF Rx Instructions: Use as directed for insulin administration albuterol sulfate 90 mcg/actuation HFA aerosol inhaler 2 puff inhalation Q6H PRN (Reason: shortness of breath or wheezing) Qty: 8.5 3RF aspirin 81 mg tablet,chewable 81 mg PO QAM Qty: 60 0RF tiotropium bromide [Spiriva with HandiHaler] 18 mcg capsule, w/inhalation device 1 cap inhalation DAILY Qty: 60 6RF Rx Instructions: puncture 1 cap using device; one dose = 2 inhalations duloxetine [Cymbalta] 30 mg capsule,delayed release(DR/EC) 30 mg PO BID Qty: 180 1RF (DME) Dexcom G7 Preprint Analyst Misc See Rx Instructions .Route Qty: 1 3RF Rx Instructions: As directed (DME) Dexcom G7 Sensor Device See Rx Instructions .Route Qty: 2 3RF Rx Instructions: As directed Lipitor 40 mg tablet 40 mg PO BEDTIME Qty: 90 1RF metformin 500 mg tablet 1,000 mg PO BID Qty: 360 0RF nystatin 100,000 unit/gram ointment 1 applic topical BID 14 Days Qty: 30 3RF famotidine 20 mg tablet 20 mg PO BID Qty: 60 0RF promethazine 25 mg tablet 25 mg PO TID PRN (Reason: Nausea And Vomiting) Qty: 90 0RF hydrocodone-acetaminophen 5-325 mg tablet 1 tab PO BID PRN (Reason: pain) 30 Days Qty: 60 0RF morphine [MS Contin] 30 mg tablet extended release 30 mg PO .qdaily 30 Days Qty: 30 0RF benzonatate 100 mg capsule 100 mg PO BID PRN (Reason: Cough) gabapentin 600 mg tablet 600 mg PO TID meloxicam 15 mg tablet 15 mg PO QAM glipizide 10 mg tablet 10 mg PO DAILY insulin lispro [Admelog SoloStar U-100 Insulin] 100 unit/mL insulin pen See Rx Instructions .ROUTE .COMPLEX Rx Instructions: Please check blood sugar 3 times a day with meals, inject 2 units subcu for blood sugars between 101 and 200, 4 units for blood sugar between 201 and 300, 6 units for blood sugar above 300, quetiapine [Seroquel XR] 150 mg tablet extended release 24 hr 150 mg PO BEDTIME Discharge Orders: Discharge ED (Routine); Ordered 06/05/24 Ordered By: Karen Oviedo Referrals: Robbie Burrell MD [Primary Care Provider] - 4-7 days Discharge Diet: Advance as tolerated Discharge Activity: Resume usual activity Patient Instructions: Chest Pain (ED) Print Language: Russian Coding Level of Care Code ED Arabic Teacher for Abdirahman Hill
[2024-06-05 18:25] VITALS: RESP 18; O2SAT 94
[2024-06-05] MEDS: morphine 4 mg/mL SDV 1 mL IM (18:25)
[2024-06-05 18:26] VITALS: BP 166/108; PULSE 96; O2SAT 97
[2024-06-05 18:49] LABS: Basophils % 0.3 %; Eosinophils # 0.2 10^3/uL (0.0-0.8); Eosinophils % 1.4 %; Hematocrit 39.2 % (36-47); Lymphocytes # 3.5 10^3/uL (0.8-4.8); Lymphocytes % 30.5 %; Mean Corpuscular HGB Conc 31.4 g/dL (30-55); Mean Corpuscular Hemoglobin 28.3 pg (27-33); Mean Corpuscular Volume 90.1 fl (85-98); Mean Platelet Volume 10.2 fL (7.4-10.4); Monocytes # 0.8 10^3/uL (0.2-0.9); Monocytes % 6.7 %; Neutrophils # 7.03 10^3/uL (1.8-7.7); Neutrophils % 60.8 %; Nucleated Red Blood Cells % 0 %; Platelet Count 202 10^3/cmm (157-399); Red Blood Count 4.35 10^6/uL (3.85-5.65); Red Cell Distribution Width 13.2 % (12.1-15.1); White Blood Count 11.59 10^3/uL (3.29-11.43)
[2024-06-05 18:59] LABS: INR 0.92 (0.8-1.2)
[2024-06-05 19:03] LABS: Troponin(5th) Baseline 10 ng/L (0-10)
[2024-06-05 19:04] LABS: Alanine Aminotransferase 13 U/L (0-33); Alkaline Phosphatase 79 U/L (35-105); Aspartate Amino Transferase 34 U/L (0-32); Blood Urea Nitrogen 9 mg/dL (6-20); Calcium 9.5 mg/dL (8.5-10.5); Carbon Dioxide 24 mmol/L (22-29); Chloride 101 mmol/L (98-107); Creatinine Clr Calc Pharmacy 205.3314; Glomerular Filtration Rate 126.3 mL/min (90-130); Glucose 203 mg/dL (65-115); Lipase 41 U/L (13-60); Osmolality Calculated 292 mOsm/kg (285-295); Sodium 139 mmol/L (136-145); Total Bilirubin 0.2 mg/dL (0.15-1.2)
[2024-06-05] MEDS: ondansetron hcl ODT 4 mg Tab PO (19:12)
[2024-06-05] MEDS: HYDROcodone-acetaminophen 5-325 mg Tablet 2 TAB PO (19:22)
[2024-06-05 19:23] VITALS: BP 157/101; PULSE 91; O2SAT 96
== END 2024-06-05 19:24 | disposition home or self-care (01) ==
PROVIDERS: Emergency Provider Emergency Medicine; PCP Family Medicine
DX: R07.89 Other chest pain (principal); Z79.4 Long term (current) use of insulin; F17.210 Nicotine dependence, cigarettes, uncomplicated; E11.9 Type 2 diabetes mellitus without complications; E78.5 Hyperlipidemia, unspecified
CPT/HCPCS: 36415; 71045; 80053; 83690; 84484; 85025; 85610; 93005; 96372; 99285; J2270; J9999; Q0162

== ENCOUNTER 2024-07-25 08:51 | Outpatient (CLI) | payer MEDICAID, SELFPAY ==
--- NOTE | 2024-07-25 08:57 | USR_ITS ---
PROCEDURE INFORMATION: Exam: US Soft Tissue Head and Neck, Thyroid Exam date and time: 07/25/2024 9:45 AM Age: 58 years old Clinical indication: Condition or disease; Other: Nodule; Additional info: Thyroid nodule TECHNIQUE: Imaging protocol: Real-time ultrasound scan of the neck with image documentation. Exam focused on the thyroid. COMPARISON: CT chest wo con [id number] 02/18/2024 4:24 PM FINDINGS: Right thyroid lobe: Right lobe: 6.2 x 2.8 x 2.9 cm. Heterogeneous echotexture. Left thyroid lobe: Left lobe: 4.4 x 2.3 x 2.1 cm. Heterogeneous echotexture. Slightly hypoechoic solid, well-circumscribed nodule with regular margins, wider than tall lower pole 1.2 x 1.1 x 0.9 cm.TIRADS 4. Isthmus: No nodules. US/US thyroid [id number] IMPRESSION: Thyroid nodule as described above. Heterogeneous thyroid glands bilaterally. Findings are suspicious for thyroiditis. Correlate. COMMENTS: 1. Recommendations for TI-RADS scores are listed below for reference. (See Reference: Tricia) 2. TI-RADS 1, Benign. 0 points: No fine needle aspiration (FNA) or follow-up ultrasound recommended. 3. TI-RADS 2, Not suspicious. 2 points: No FNA or follow-up ultrasound recommended. 4. TI-RADS 3, Mildly suspicious. 3 points: FNA if equal or greater than 2.5 cm. Follow-up ultrasound if 1.5 to 2.4 cm in 1, 3, and 5 years. 5. TI-RADS 4, Moderately Suspicious. 4-6 points: FNA if equal or greater than 1.5 cm. Follow-up ultrasound if 1 to 1.4 cm in 1, 2, 3, and 5 years. 6. TI-RADS 5, Highly Suspicious. 7 points or greater: FNA if equal or greater than 1 cm. Follow-up ultrasound if 0.5 to 0.9 cm every year for 5 years. REFERENCES: Tricia FN, Ethel CEE, Nicanor KEY et al. ACR Thyroid Imaging, Reporting and Data System (TI-RADS): White Paper of the ACR TI-RADS Committee. J Am Mary Radiol. 2017; 14: 587-595.
--- NOTE | 2024-07-25 08:57 | US_ITS ---
WS: [id number] RIGHT UPPER QUADRANT ULTRASOUND HISTORY: adrenal mass COMPARISON: 10/13/2011 Liver: 18.1 cm in length. Mildly enlarged liver. Coarse echotexture and hepatic steatosis. The entire liver is not well visualized due to body habitus. Portal Vein: Normal hepatopetal flow with monophasic waveform. Gallbladder: Prior cholecystectomy. CBD: 0.7 cm Pancreas: Obscured. Right kidney: 11.5 cm in length. Poorly visualized kidney due to body habitus. No hydronephrosis. Mass would be difficult to exclude. Aorta and IVC: Not visualized. No ascites. US/US abdomen limited [id number] IMPRESSION: 1. Extremely limited RIGHT upper quadrant ultrasound due to body habitus. 2. Prior cholecystectomy. 3. Incompletely visualized liver. Mild hepatomegaly with diffuse hepatic steat osis. 4. For evaluation of an adrenal gland mass CT or MRI with and without contrast should be obtained. Adrenal glands are not visualized by ultrasound.
== END 2024-07-25 08:52 | disposition home or self-care (01) ==
LOC: RAD 08:52
PROVIDERS: PCP Family Medicine; Visit Provider Family Medicine
DX: E04.1 Nontoxic single thyroid nodule (principal); E27.8 Other specified disorders of adrenal gland; M87.00 Idiopathic aseptic necrosis of unspecified bone; K76.0 Fatty (change of) liver, not elsewhere classified; Z90.49 Acquired absence of other specified parts of digestive tract
CPT/HCPCS: 76536; 76705

== ENCOUNTER 2024-08-24 19:00 | Emergency (ER) | payer MEDICAID, SELFPAY ==
--- OUTSIDE RECORDS SUMMARY | 2010-04-23 11:22 | XMS_ITS | Continuity of Care Document ---
Author Organization [facility] Address [address] [id number] [address] Phone Care Team Providers Care Service Worker Name Role Phone Unavailable Unavailable Unavailable Allergies, Adverse Reactions, Alerts Substance Reaction Status Criticality TRAMADOL HCL Active No Information KETOROLAC TROMETHAMINE Active No In formation SULFACETAMIDE SODIUM Active No Info rmation SULFUR Active No Information Penicillins Active No Information CITALOPRAM HYDROBROMIDE Rash Active No I nformation piroxicam Rash Active No Information Medications Medication Instructions Dosage Effective Dates (start - stop) Status Comments Topamax 200 mg Tab take 1 tablet (200MG ) by oral route 2 times every day 200 MG - Active Soma 350 mg Tab take 1 tablet (350MG ) by ORAL route every 8 hours 350 MG - Active promethazine 25 mg Tab take 1 - 2 Tablet (25MG) by ORAL route every 6 hours as needed for nausea 25 MG - Active Lomotil 2.5 mg-0.025 mg Tab take 2 tablet (5MG) by oral route 4 times every day as needed 5 MG - Active Premarin 1.25 mg Tab take 1 tablet (1.25MG) by oral route every day for 21 consecutive days, followed by 7 days off 1.25 MG - Active ProAir HFA 90 mcg/Actuation Aerosol Inhaler inhale 2 puff by inhalation route 4 - 6 hours as needed - Active Procedures Procedure Date OFFICE/OUTPATIENT VISIT, EST OFFICE/OUTPATIENT VISIT, EST DRUG SCREEN, SINGLE OFFICE/OUTPATIENT VISIT, EST URINALYSIS NONAUTO W/O SCOPE $5 (in-hous e) BASIC METABOLIC PANEL $10 ([id number]) EST-EXP PROB FOC/LOW COMPLEXITY 009 EST-EXP PROB FOC/LOW COMPLEXITY 009 EST-EXP PROB FOC/LOW COMPLEXITY 009 EST-EXP PROB FOC/LOW COMPLEXITY 009 EST-PROB FOC/STR FORWARD EST-EXP PROB FOC/LOW COMPLEXITY 009 EST-EXP PROB FOC/LOW COMPLEXITY 009 EST-EXP PROB FOC/LOW COMPLEXITY 008 EST-EXP PROB FOC/LOW COMPLEXITY 008 EST-DETAIL/MOD COMPLEXITY EST-EXP PROB FOC/LOW COMPLEXITY 008 EST-PROB FOC/STR FORWARD EST-EXP PROB FOC/LOW COMPLEXITY 008 URINALYSIS NONAUTO W/O SCOPE EST-EXP PROB FOC/LOW COMPLEXITY 008 EST-EXP PROB FOC/LOW COMPLEXITY 008 EST-PROB FOC/STR FORWARD EST-EXP PROB FOC/LOW COMPLEXITY 008 EST-EXP PROB FOC/LOW COMPLEXITY 008 URINALYSIS NONAUTO W/O SCOPE COMPLETE CBC W/AUTO DIFF WBC EST-PROB FOC/STR FORWARD EST-PROB FOC/STR FORWARD EST-EXP PROB FOC/LOW COMPLEXITY 007 INJ CEFTRIAXONE SODIUM PER 250 MG Advance Directives Directive Yes / No Effective Date File Name Resuscitation Not Answered N/A N/A Life Support Not Answered N/A N/A Intubation Not Answered N/A N/A Antibiotics Not Answered N/A N/A IV Fluid Support Not Answered N/A N/A Tube Feed Not Answered N/A N/A Other Directive N/A N/A WARNING:The information contained in this section is historical and is provided for information only and does not constitute a legal document or any assurance that the information is still accurate. Please verify the information with the diana of the legal document before using it for clinical purposes. Encounters Encounter Description Practice Location Reason(s) For Visit Diagnoses Date Provider Providers Copied on Encounter [facility], [id number] [facility] [place], [place], [address], [place] tel:[phone] Family Medicine F1 No Information 1 No Information OFFICE/OUTPA TIENT VISIT, [facility], [id number] [place], [address], [place] tel:[phone] Family Medicine F1 back pain (chief complaint) medication refills (chief complaint) hemorrhoid s (chief complaint) Bronchitis, AcuteOsteoarthros is, unspecified whether generalized or localized, involving unspecified siteBackacheHemor rhoids 1 No Information OFFICE/OUTPA TIENT VISIT, [facility], [id number] [place], [address], [place] tel:[phone] Family Medicine F1 back pain (chief complaint) medication requests (chief complaint) Osteoarthritis, GeneralizedObesit y, MorbidTherapeutic Drug Monitoring 1 No Information OFFICE/OUTPA TIENT VISIT, [facility], [id number] [place]BV[place], [address], [place] tel:[phone] Family Medicine F1 anxiety (chief complaint) Therapeutic Drug MonitoringOsteoar thritis, GeneralizedAnxiet y 1 No Information EST-EXP PROB FOC/LOW COMPLEXITY [facility], [id number] 32613[place], [address], [place] tel:[phone] Family Medicine F1 No Information 200 9 No Information EST-EXP PROB FOC/LOW COMPLEXITY [facility], [id number] [place]148[place], [address], [place] tel:[phone] Family Medicine F1 No Information Nov-0 6200 9 No Information EST-EXP PROB FOC/LOW COMPLEXITY [facility], [id number] 7216882KR- [facility], [place], [place], [address], [place] tel:[phone] Family Medicine F1 No Information Sep-0 1200 9 No Information EST-EXP PROB FOC/LOW COMPLEXITY [facility], [id number] [facility]20846[facility] [place], [place], [address], [place] tel:[phone] Family Medicine F1 No Information 2 9 No Information EST-PROB FOC/STR FORWARD [facility], [id number] 0015639GFLindsb[facility], [place], [place], [address], [place] tel:[phone] Family Medicine F1 No Information 9 No Information EST-EXP PROB FOC/LOW COMPLEXITY [facility], [address] 5702793GSM[place], [place], [address], [place] tel:[phone] Family Medicine F1 No Information 9 No Information EST-EXP PROB FOC/LOW COMPLEXITY [facility], [address] 2922771KGL[facility], [place], [place], [address], [place] tel:[phone] Family Medicine F1 No Information 9 No Information EST-EXP PROB FOC/LOW COMPLEXITY [facility], [address] 0987496KSMohawk, [place], [address], [place] tel:[phone] Family Medicine F1 No Information 8 No Information EST-EXP PROB FOC/LOW COMPLEXITY [facility], [id number] 0589603ZTLindsb[facility], [place], [place], [address], [place] tel:[phone] Family Medicine F1 No Information 8 No Information EST-DETAIL/M OD COMPLEXITY [facility], [id number] 2583509CY- [facility], [place], [place], [address], [place] tel:[phone] Family Medicine F1 No Information Nov-2 9200 8 No Information EST-EXP PROB FOC/LOW COMPLEXITY [facility], [address] [id number] 7121359EZ- [facility], [place], [place], [address], [place] tel:[phone] Family Medicine F1 No Information Nov-1 7200 8 No Information EST-PROB FOC/STR FORWARD [facility], [id number] 1833851NN- [place], [address], [place] tel:[phone] Family Medicine F1 No Information Sep-0 9200 8 No Information EST-EXP PROB FOC/LOW COMPLEXITY [facility], [id number] 2560209PW- [place], [address], [place] tel:[phone] Family Medicine F1 No Information Sep-2 6200 8 No Information EST-EXP PROB FOC/LOW COMPLEXITY [facility], [address]ksy[address]K9 4439482KR- [facility], [place], [place], [address], [place] tel:[phone] Family Medicine F1 No Information José Miguel-2 4200 8 No Information EST-EXP PROB FOC/LOW COMPLEXITY [facility], [address]ll[address] 1196305MQ- [facility], [place], [place], [address], [place] tel:[phone] Family Medicine F1 No Information José Miguel-0 2-200 8 No Information EST-PROB FOC/STR FORWARD [facility], [address]suok[address]X4 9962031ZH- [facility], [place], [place], [address], [place] tel:[phone] Family Medicine F1 No Information June-2 3-200 8 No Information EST-EXP PROB FOC/LOW COMPLEXITY [facility], [address] [id number] 5342285HP- [facility], [facility], [place], [address], [place] tel:[phone] Family Medicine F1 No Information 8 No Information EST-EXP PROB FOC/LOW COMPLEXITY [facility], [id number] 4884639TH- [facility], [place], [place], [address], [place] tel:[phone] Family Medicine F1 No Information 8 No Information EST-PROB FOC/STR FORWARD [facility], [address]jyip[address]U6 4424546JU- [facility], [place], [place], [address], [place] tel:[phone] Family Medicine F1 No Information 8 No Information EST-PROB FOC/STR FORWARD [facility], [id number] 1350882GM- [facility], [place], [place], [address], [place] tel:[phone] Family Medicine F1 No Information 8 No Information EST-EXP PROB FOC/LOW COMPLEXITY [facility], [id number] 3771338YM- [facility], [place], [place], [address], [place] tel:[phone] Family Medicine F1 No Information 7 No Information Family History Family Member Type Diagnosis Age At Onset No Information Payers Payer name Insurance type Covered democrat ID Ann-Marie bishop(jesus) M [place] Medicaid MC [id number] Social History Type Description Quantity Date Captured Comments Alcohol Use Details Unknown Caffeine Use Details Unknown Tobacco Use Status No Information Smoking Status No Information Sex Female Chief Complaint And Reason For Visit No Information Reason For Referral Reason For Referral No Information History Of Present Illness Encounter Date Complaint History Of Prese nt Illness No Information Functional Status Date Functional Assessmen t No Information Instructions Date Instruction Additional Infor mation No Information Assessments Type Assessment Date No Information Patient Care Teams Name Effective Dates (start - stop) Status Members No Information
--- OUTSIDE RECORDS SUMMARY | 2023-11-30 08:20 | XMS_ITS ---
Author Organization [facility] Address [address] [place] [address] Support Name Relationship Address , Radha Crow Emergency Contact Unknown Unavailable Cyndi Baca Guarantor Unknown [phone] Care Team Providers Care Export Coordinator Name Role Phone Adrienne CRAFT, Dr Knowles Primary Care Provider Unav Mary Kate Dickinson Unavailable [phone] Hector Pearce Unavailable Unavailable Robbie Crowder Unavailable [phone] REASON FOR VISIT 1 mo Encounters Encounter Location Date Provider Diagnosis [facility] [address] [id number] 11/30/2023 Robbie Crowder Plan Of Treatment No Information Progress Notes * Cyndi BACA ADOB: [birth year] (58 yo F)Acc No.[id number]:11/30/2023 Progress Notes Patient: Cyndi PAPPAS Provider: Trish Crowder D.O. :1965 A ge:58 Y S ex:Female Date:11/30/2023 Address:[address] [place], [place] [id number] Pcp:Dr Benson Deleon DO Subjective: * Chief Complaints: * 1 . 1 mo. * Medical History: Objective: * Vitals: Assessment: Plan: * Treatment: Forms: * Billing Information: * Visit Code: * Procedure Codes: Care Plan Details* * Electronic signature of Robbie Crowder DO on 08/24/2024 at 07:07 PM CDT Sign off status: Pending * Provider: Trish Crowder D.O. Date: Generated for Printi ng/Faxing/eTransmitting on: 0 08/24/2024 07:07 PM CDT
--- OUTSIDE RECORDS SUMMARY | 2023-12-10 04:00 | XMS_ITS ---
Author Organization [facility] Address [address] [place] [address] Support Name Relationship Address , Radha Crow Emergency Contact Unknown Unavailable Cyndi Baca Guarantor Unknown [phone] Care Team Providers Care Charging Board Operator Name Role Phone Adrienne CRAFT, Dr Knowles Primary Care Provider Mary Kate Malik Unavailable [phone] Hector Pearce Unavailable Unavailable Migration, Provider Unavailable Unavailable REASON FOR VISIT EMR-Ronn Encounters Encounter Location Date Provider Diagnosis Migrated_Facility 0 0 12/10/2023 Provider Migration Plan Of Treatment Medication Medication Name Sig Start Date Stop Date Notes HYDROcodone-Acetaminop hen 7.5-325 MG Oral Tablet 1 Tablet Every 6 Hours PRN not to exceed 4 tablets per day 08/10/2023 09/09/2023 *Reorder from [facility] an for eRx and Interaction Alerts* morphine 15 mg oral tablet extended release 1 Tablet three times a day 08/12/2023 09/11/2023 *Reorder from [facility] an for eRx and Interaction Alerts* Progress Notes * Cyndi BACA ADOB: [birth year] (58 yo F)Acc No.[id number]:12/10/2023 Patient: Elisha Cyndi DEL ROSARIO :1965 A ge:58 Y S ex:Female Address:[address] [place] [id number] * Refills Stop HYDROcodone-Acetaminophen 7.5-325 MG Oral Tablet, 1 Tablet Every 6 Hours PRN not to exceed 4 tablets per day Stop morphine 15 mg oral tablet extended release, 1 Tablet three times a day Subjective: * Chief Complaints: * E MR-Ronn * Medical History: * Surgical History: * Hospitalization/Major Diagno stic Procedure: * Medications: Objective: * Vitals: * Physical Examination: Assessment: Plan: * Treatment: * Procedure Codes: * * Date:
--- OUTSIDE RECORDS SUMMARY | 2023-12-11 04:00 | XMS_ITS ---
Author Organization [facility] Address [address] [place] [id number] Support Name Relationship Address , Radha Crow Emergency Contact Unknown Unavailable Cyndi Baca Guarantor Unknown [phone] Care Team Providers Care Process Tank Tender Name Role Phone Adrienne CRAFT, Dr Knowles Primary Care Provider Mary Kate Malik Unavailable [phone] Hector Pearce Unavailable Unavailable Migration, Provider Unavailable Unavailable REASON FOR VISIT [facility] Medications Medication SIG (Take, Route, Frequency, Duration) [...] stren gth-form from [employer] for eRX* Active Encounters Encounter Location Date Provider Diagnosis Migrated_Facility 0 0 12/11/2023 Provider Migration Plan Of Treatment No Information Progress Notes * Cyndi BACA ADOB: [birth year] (58 yo F)Acc No.[id number]:12/11/2023 Patient: Elisha Cyndi DEL ROSARIO :1965 A ge:58 Y S ex:Female Address:[address] [place] [id number] Subjective: * Chief Complaints: * E MR-Ronn * Medical History: * Surgical History: c esarean section cholecystectomy Hysterectomy * Hospitalization/Major Diagno stic Procedure: * Family History: M igrated Family History: [...] Pharmacist: *Pick strength-form from [employer] for eRX* Objective: * Vitals: * Physical Examination: Assessment: Plan: * Treatment: * Procedure Codes: * * Date:
--- OUTSIDE RECORDS SUMMARY | 2024-08-24 19:07 | XMS_ITS | Encounter Summary ---
Author Organization [facility] Address [address] [place] [address] Care Team Providers Care Bag Repairer Name Role Phone Zack Gandara MD Primary Care Provider [phone] Encounter Details Date Type Department Care Team (Late st Contact Info) Description 05/24/2014 Nurse Triage Report [id number] ABSTRACTION Leia Resendez, RN Social History Tobacco Use Types Packs/Day Years Used Date Smoking Tobacco: Every Day Cigarettes 0.5 29 Smokeless Tobacco: Never Comments:smoking since age [age] Alcohol Use Standard Drinks/Week Comments No 0 (1 standard drink = 0.6 oz pur e alcohol) Comments No Sex and Gender Information Value Date Recorded Sex Assigned at Not on file 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 ASSESSMENT TRIAGE NOTE Triage Note: Driver Operator Leia Resendez added this note on May 24 2014 7:42PM: Advised to see UC if fever or worsening symptoms. [place] [facility] address of the [facility] in [facility]. TRIAGE/OUTCOME Guideline Title: Information Only Call; No Symptom Triage (Adult) Recommended Disposition: Provide Information or Advice Only Original Inclination: Self Management Override Disposition: Intended Action: Self Management Physician Contacted: No Health information question; person denies any symptoms, no triage required. Information provided from approved references or clinical experience. ? YES Physician Instructions: Care Advice: documented in this encounter Plan of Treatment Not on file documented as of this encounter Visit Diagnoses Not on filedocumented in this encounter Care Teams Bag Repairer Relationship Specialty Start Date End Date Zack Gandara MD PCP - General Family Practice 01/23/19 03/19/19 documented as of this encounter
--- OUTSIDE RECORDS SUMMARY | 2024-08-24 19:07 | XMS_ITS | Encounter Summary ---
Author Organization [facility] Address [address] [place] [address] Care Team Providers Care Supervisor Nut Processing Name Role Phone Zack Gandara MD Primary Care Provider Encounter Details Date Type Department Care Team (Late st Contact Info) Description 02/19/2005 Outpatient Historical [facility] [address] 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
--- OUTSIDE RECORDS SUMMARY | 2024-08-24 19:08 | XMS_ITS | Encounter Summary ---
Author Organization [facility] Address [address] [place] [address] Care Team Providers Care Applications Project Manager Name Role Phone Zack Gandara MD Primary Care Provider Encounter Details Date Type Department Care Team (Late st Contact Info) Description 07/05/2005 Outpatient Historical [facility] Family Medicine [address] [place] [address] [place] [address] Paola Waters PA [address] [place] [id number] Routine Gynecological Examination (Primary Dx) Social History Tobacco Use Types Packs/Day Years Used Date Smoking Tobacco: Never Assessed Comments Unknown Sex and Gender Information Value Date Recorded Sex Assigned at Not on file 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
--- OUTSIDE RECORDS SUMMARY | 2024-08-24 19:08 | XMS_ITS | Encounter Summary ---
Author Organization [facility] Address [address] [place] [address] Care Team Providers Care Pigment Processor Name Role Phone Zack Gandara MD Primary Care Provider [phone] Encounter Details Date Type Department Care Team (Late st Contact Info) Description 04/30/2004 Outpatient Historical 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
--- OUTSIDE RECORDS SUMMARY | 2024-08-24 19:08 | XMS_ITS | Encounter Summary ---
Author Organization [facility] Address [address] [place] [address] Care Team Providers Care Gleason Gear Generator Name Role Phone Zack Gandara MD Primary Care Provider [phone]- [phone] Encounter Details Date Type Department Care Team (Latest Contact Info) Description 03/31/2005 Outpatient Historical [facility] Family Medicine [address] [address] Juancarlos Obrien MD NO ADDRESS ON FILE ACUTE SINUSITIS NOS (Primary Dx); OTITIS MEDIA NOS; BIPOLAR - MOST RECENTLY MANIC NOS ([facility]/HCC) Social History Tobacco Use Types Packs/Day Years Used Date Smoking Tobacco: Never Assessed Comments Unknown Sex and Gender Information Value Date Recorded Sex Assigned at Not on file Legal 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
--- OUTSIDE RECORDS SUMMARY | 2024-08-24 19:08 | XMS_ITS | Encounter Summary ---
Author Organization [facility] Address [address] [place] [address] Care Team Providers Care Filteration Operator Name Role Phone Zack Gandara MD Primary Care Provider Encounter Details Date Type Department Care Team (Latest Contact Info) Description 05/03/2005 Outpatient Historical [facility] Emergency Medicine [address] [place] [address] Juancarlos Obrien MD NO ADDRESS ON FILE Lumbago (Primary Dx); Bipolar Affective, Manic, Unspec (CMS/HCC) Social History Tobacco Use Types Packs/Day Years Used Date Smoking Tobacco: Never Assessed Comments Unknown Sex and Gender Information Value Date Recorded Sex Assigned at Not on file Legal Sex Female 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
--- OUTSIDE RECORDS SUMMARY | 2024-08-24 19:08 | XMS_ITS | Encounter Summary ---
Author Organization [facility] Address [address] [place] [address] Care Team Providers Care Thermal Cutter Helper Name Role Phone Zack Gandara MD Primary Care Provider [phone]- [phone] Encounter Details Date Type Department Care Team (Latest Contact Info) Description 01/02/2005 Outpatient Historical [facility] [address] 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
--- OUTSIDE RECORDS SUMMARY | 2024-08-24 19:08 | XMS_ITS | Encounter Summary ---
Author Organization [facility] Address [address] [place] [address] Care Team Providers Care Plastic Duplicator Name Role Phone Zack Gandara MD Primary Care Provider Encounter Details Date Type Department Care Team (Late st Contact Info) Description 10/07/2007 Emergency [facility] Emergency Department [address] [place] [phone] Ed, Physician NO ADDRESS ON FILE Sabino Lai Jr., DO NO ADDRESS ON FILE Panic Disorder without Agoraphobia; Unspecified Backache; Other Chronic Pain; Other Specified Cardiac Dysrhythmias; Tobacco Use Disorder; Acquired Absence of Organ, Genital Organs; Other Acquired Absence of Organ; Personal History of Allergy to Penicillin; Personal History of Allergy to Sulfonamides; Personal History of Allergy to Analgesic Agent Social History Tobacco Use Types Packs/Day Years Used Date Smoking Tobacco: Never Assessed Comments Unknown Sex and Gender Information Value Date Recorded Sex Assigned at Not on file 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 Gender Identity Not on file Sexual Orientation Not on file documented as of this encounter Plan of Treatment Not on file documented as of this encounter Procedures Procedure Name Priority Date/Time Associated Diagnosis Comments CARDIAC ENZYMES Stat 10/07/2007 2:00 PM CDT CBC WITH DIFFERENTIAL Stat 10/07/2007 2:00 PM CDT D-DIMER Stat 10/07/2007 2:00 PM CDT BASIC METABOLIC PANEL Stat 10/07/2007 2:00 PM CDT XR CHEST PA AND LATERAL 2 VW Routine 10/07/2007 1:46 PM CDT documented in this encounter Results * CARDIAC ENZYMES (10/07/2007 2:00 PM CDT) [facility] CKMB 0.3 0.0 - 5.0 ng/mL [facility] TROPONIN I <0.1 0.0 - 1.3 ng/mL [facility] Blood specimen (specimen) 10/07/2007 2:00 PM CDT 10/07/2007 2:06 PM CDT Sabino Lai Jr., DO CHEMISTRY ORDERABLES Chichi conley Result INTERFACE SYSTEM Refer to clinic/hospital department [facility] CLIA# [id number] [address] [place] [address] * (ABNORMAL) CBC WITH DIFFERENTIAL (10/07/2007 2:00 PM CDT) [facility] LYMPHOCYTE ABSOLUTE 3.9 1.2 - 4.0 K/ul [facility] MCV 93.3 84.0 - 103.0 Fl [facility] MPV 10.1 8.9 - 12.8 Fl [facility] BASOPHILS ABSOLUTE 0.0 0.0 - 0.2 K/ul [facility] BASOPHILS 0.3 0.0 - 1.0 % [facility] HEMOGLOBIN 13.2 12.0 - 16.0 g/dL [facility] RDW 13.5 11.0 - 14.5 % [facility] MONOCYTE ABSOLUTE 1.0(H) 0.1 - 0.6 K/ul [facility] MONOCYTES 10.0 2.0 - 10.0 % [facility] WBC 10.5 4.5 - 11.0 K/ul [facility] MCH 30.3 27.0 - 34.0 pg [facility] NEUTROPHIL ABSOLUTE 5.1 2.0 - 8.0 K/ul [facility] NEUTROPHILS 48.7 42.2 - 75.2 % [facility] HEMATOCRIT 40.6 36.0 - 46.0 % [facility] EOSINOPHILS 4.0 0.0 - 7.0 % [facility] PLATELETS 177 140 - 440 K/ul [facility] EOSINOPHIL ABSOLUTE 0.4 0.0 - 0.7 K/ul [facility] RBC 4.35 4.20 - 5.40 Mil/ul [facility] MCHC 32.5 30.0 - 35.0 g/dL [facility] LYMPHOCYTES 37.0 24.0 - 44.0 % [facility] Blood specimen (specimen) 10/07/2007 2:00 PM CDT 10/07/2007 2:06 PM CDT us Sabino Lai Jr., DO HEMATOLOGY ORDERABLES Fin al Result Performing Organization Address City/State/[facility] Co de Phone Number INTERFACE SYSTEM Refer to clinic/hospital department [facility] CLIA# [id number] [address] [place] [address] * D-DIMER (10/07/2007 2:00 PM CDT) [facility] D-DIMER QUANT 0.5 0.0 - 0.5 mcg/mL [facility] Comment: Testing performed using the STA Liatest D-Di kit. This test can be used as an aid to the diagnosis of deep venous thrombosis and pulmonary embolism. In clinical studies it has been reported that, with a cutoff value of 0.5 mcg/mL FEU, the negative predictive value for the exclusion of thrombosis was within the 95-100% range. Blood specimen (specimen) 10/07/2007 2:00 PM CDT 10/07/2007 2:06 PM CDT Sabino Lai Jr., HEMATOLOGY ORDERABLES Fin al Result Performing Organization Address [facility] Phone Number INTERFACE SYSTEM Refer to clinic/hospital department [facility] CLIA# [id number] [address] [place] [address] * (ABNORMAL) BASIC METABOLIC PANEL (10/07/2007 2:00 PM CDT) BUN 10 7 - 17 mg/dL [facility] CO2 27 22 - 32 mmol/l [facility] POTASSIUM 3.9 3.5 - 5.0 mEq/L [facility] OSMOLALITY, CALCULATED 287 275 - 295 mOsm/Kg [facility] CREATININE 0.6(L) 0.7 - 1.2 mg/dL [facility] CALCIUM 9.6 8.4 - 10.5 mg/dL [facility] GLUCOSE 104 70 - 110 mg/dL [facility] CHLORIDE 109 95 - 110 mEq/L [facility] ANION GAP 8(L) 9 - 20 mEq/L [facility] SODIUM 140 136 - 145 mEq/L [facility] Blood specimen (specimen) 10/07/2007 2:00 PM CDT 10/07/2007 2:06 PM CDT Sabino Lai Jr., DO CHEMISTRY ORDERABLES Chichi l Result Performing Organization Address [facility] Phone Number INTERFACE SYSTEM Refer to clinic/hospital department [facility] CLIA# [id number] [facility] [place] [address] * XR CHEST PA AND LATERAL (10/07/2007 1:46 PM CDT) Anatomical Region Laterality Modality Chest Other 10/07/2007 1:46 PM CDT Narrative 10/07/2007 3:09 PM CDT Two views of the chest were obtained. History is chest pain. Heart and mediastinum are within normal limits. Both lungs are clear. Impression unremarkable exam. - Dictated By: Michael Gooden M.D. Electronically Signed By: Michael Gooden M.D. Date Signed: 10/07/07 [facility]B Procedure Note Michael Gooden W - 10/07/2007 Two views of the chest were obtained. History is chest pain. Heart and mediastinum are within normal limits. Both lungs are clear. Impression unremarkable exam. - Dictated By: Michael Gooden M.D. Electronically Signed By: Michael Gooden M.D. Date Signed: 10/07/07 GRB Sabino Lai Jr., DO DIAGNOSTIC IMAGING ORDERA BLES Final Result documented in this encounter Visit Diagnoses Diagnosis Panic disorder without agoraphobia Backache, unspecified Other chronic pain Other specified cardiac dysrhythmias(427.89) Other specified cardiac dysrhythmias Tobacco use disorder Acquired absence of organ, genital organs Other acquired absence of organ Personal history of allergy to penicillin Personal history of allergy to sulfonamides Personal history of allergy to analgesic agent documented in this encounter Care Teams Plastic Duplicator Relationship Specialty Start Date End Date Zack Gandara MD PCP - General Family Practice 01/23/19 03/19/19 documented as of this encounter
--- OUTSIDE RECORDS SUMMARY | 2024-08-24 19:08 | XMS_ITS | Encounter Summary ---
Author Organization [facility] Address [address] [place] [address] Care Team Providers Care Canine Deputy Name Role Phone Zack Gandara MD Primary Care Provider [phone]- [phone] Encounter Details Date Type Department Care Team (Latest Contact Info) Description 08/06/2005 Outpatient Historical [facility] Family Medicine [address] [place] [address] Juancarlos Obrien MD NO ADDRESS ON FILE Other Malaise and Fatigue (Primary Dx); Unspecified Sleep Apnea; Depressive Disorder, not Elsewhere Classified Social History Tobacco Use Types Packs/Day Years Used Date Smoking Tobacco: Never Assessed Comments Unknown Sex and Gender Information Value Date Recorded Sex Assigned at Not on file 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
--- OUTSIDE RECORDS SUMMARY | 2024-08-24 19:08 | XMS_ITS | Encounter Summary ---
Author Organization [facility] Address [address] [place] [address] Care Team Providers Care Marine Architect Name Role Phone Zack Gandara MD Primary Care Provider [phone]- [phone] Encounter Details Date Type Department Care Team (Latest Contact Info) Description 02/19/2004 Outpatient Historical [facility] Internal Medicine and Pediatrics-[address] [place] [address] Karina Garibay MD NO ADDRESS ON FILE ACUTE URI NOS (Primary Dx) Social History Tobacco Use Types Packs/Day Years Used Date Smoking Tobacco: Never Assessed Comments Unknown Sex and Gender Information Value Date Recorded Sex Assigned at Not on file Legal 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
--- OUTSIDE RECORDS SUMMARY | 2024-08-24 19:08 | XMS_ITS | Clinical Summary ---
Author Organization [facility] Address [address] [place]: Epic Prelude ADT [place] [address] Care Team Providers Care Safe Deposit Box Rental Clerk Name Role Phone Unavailable Primary Care Provider Unavailabl e Allergies Active Allergy Reactions Criticality Noted Date Comments Ceftriaxone Hives High 09/17/2017 Ibuprofen Nausea and Vomiting Low 08/28/2010 Ketorolac Tromethamine Anaphylaxis,Hives High 2007 Lidocaine Rash Low Penicillins Hives High 12/06/2007 Prochlorperazine Edisylate Itching High 1 Propoxyphene N-Acetaminophen Nausea and Vomiting Low 05/20/2009 Sulfa (Sulfonamide Antibiotics) Hives High 09/2009 Tetracycline Hives High 12/06/2007 Tramadol Anaphylaxis,Hives High 12/06/2007 Medications gabapentin (NEURONTIN) 600 mg tablet TAKE ONE TABLET BY MOUTH TWICE DAILY 60 Tablet 0 0 Active Additional Information Patient taking differently: 600 mg DAILY, Reported on 07/24/2024 albuterol sulfate 90 mcg/Actuation inhaler Take 2 Puffs by inhalation every 4 hours as needed for Shortness of Breath or Wheezing. 18 Gram 2 2 Active HYDROcodone-marino taminophen (NORCO) 5-325 mg tabletIndicatio ns:Right upper quadrant abdominal pain Take 1 Tablet by mouth every 4 hours as needed for Pain, Moderate. Max Daily Amount: 6 Tablets 18 Tablet 2 Active Active Problems Problem Noted Date Diagnosed Date Chronic pain syndrome 07/25/2024 Spinal stenosis of lumbar re gion with neurogenic claudication 07/25/2024 Lumbosacral spondylosis without myelopathy 07/25 Discogenic low back pain 07/25/2024 Degeneration of intervertebr al disc of lumbosacral region with discogenic back pain 07/25/2024 AVN (avascular necrosis of bone) 07/25/2024 Chronic, continuous use of opioids 07/25/2024 Overview (07/25/2024): with pcp Ligamentum flavum hypertrophy 07/25/2024 Hospice care patient 09/28/2021 Cellulitis/abscess of abdominal wall 12/22/2018 Ventral hernia without obstr uction or gangrene on CT Dec 2018 12/22/2018 Vaginal irritation 09/20/2017 E. coli pyelonephritis 09/19/2017 DJD (degenerative joint disease) of hip 04/06/19 15 TMJ (temporomandibular joint syndrome) 5 Right shoulder pain 03/11/2014 Right knee pain 03/11/2014 Opiate withdrawal with vomiting 03/10/2014 Bleeding hemorrhoid 03/10/2014 Hepatic steatosis 03/10/2014 Heartburn 03/10/2014 Depressive disorder 05/20/2009 Hot flash 05/20/2009 Migraines 04/22/2009 KANDY (generalized anxiety disorder) 04/22/2009 DJD (degenerative joint disease) of knee 010 DJD (degenerative joint disease), lumbar 010 Depression 04/22/2009 Morbid obesity 04/22/2009 Chronic low back pain 04/22/2009 Bipolar 2 disorder 04/22/2009 Resolved Problems Problem Noted Date Diagnosed Date Resolved Date Vomiting 03/10/2014 09/19/2017 UTI (urinary tract infection) 03/10/2014 09/19/2017 COPD exacerbation 05/20/2009 05/20/2009 IBS (irritable bowel syndrome) 04/22/2009 09/19/2017 Encounters Date Type Department Care Team Description 08/01/2024 External Device Data ST[facility] ABSTRACTION Provider, Abstract 07/31/2024 External Device Data ST[facility] ABSTRACTION Provider, Abstract 07/31/2024 External Device Data ST[facility] ABSTRACTION Provider, Abstract 07/24/2024 1:00 PM CDT Office Visit [facility] [address] [place] [phone] Antwon Marks MD Chronic pain syndrome (Primary Dx); Spinal stenosis of lumbar region with neurogenic claudication; Lumbosacral spondylosis without myelopathy; Discogenic low back pain; Degeneration of intervertebral disc of lumbosacral region with discogenic back pain; AVN (avascular necrosis of bone) (CMS/HCC); Chronic, continuous use of opioids; Ligamentum flavum hypertrophy from Last 3 Months Immunizations Immunization Administration Dates Next Due (ADACEL/BOOSTRIX)(10 YR UP) TDAP VACCINE, 0.5ML, IM 07/29/2011 (TDVAX)(7 YRS UP) TETANUS AN D DIPHTHERIA TOXOIDS, ADSORBED (2 LF OF TETANUS TOXOID AND 2 LF OF DIPHTHERIA TOXOID), 0.5ML (PF), IM 05/27/2002 Influenza Seasonal Unspecifi ed Formulation IM 12/17/2018,2013,12/20/1995 Family History Medical History Relation Name Comments Healthy Brother 1 Healthy Brother 2 Healthy Brother 3 Healthy Daughter Healthy Father Diabetes Mother Hypertension Mother Relation Name Status Comments Brother 1 Alive Brother 2 Alive Brother 3 Alive Daughter Alive Father Mother Alive Social History Tobacco Use Types Packs/Day Years Used Date Smoking Tobacco: Former Cigarettes Smokeless Tobacco: Never Tobacco Cessation:Counseling Given: Yes Comments:Quit smoking: smoking since age 28; trying to quit with chantix Alcohol Use Standard Drinks/Week Comments No 0 (1 standard drink = 0.6 oz pur e alcohol) Feeling Safe Answer Date Recorded Within the last year, have y ou been afraid of your partner or ex-partner? No 01/02/2019 Within the last year, have y ou been humiliated or emotionally abused in other ways by your partner or ex-partner? No Within the last year, have y ou been kicked, hit, slapped, or otherwise physically hurt by your partner or ex-partner? No 01/02/2019 Within the last year, have y ou been raped or forced to have any kind of sexual activity by your partner or ex-partner? No 01/02/2019 Comments No Sex and Gender Information Value Date Recorded Sex Assigned at Not on file Legal Sex Female 9:30 AM DIRECTOR OF MUSIC THERAPY Gender Identity Not on file Sexual Orientation Not on file Last Filed Vital Signs Vital Sign Reading Time Taken Comments Blood Pressure 130/76 07/24/2024 12:41 PM CDT Pulse 77 09/28/2021 7:00 PM CDT Temperature 36.7 C (98 F) 09/28/2021 3:04 PM CDT Respiratory Rate 18 09/28/2021 7:00 PM CDT Oxygen Saturation 96% 09/28/2021 7:00 PM CDT Inhaled Oxygen Concentration - - Weight 158.8 kg (350 lb) 07/24/2024 12:41 PM CDT Height 175.3 cm (5' 9 ) 07/24/2024 12:41 PM CDT Body Mass Index 51.69 07/24/2024 12:41 PM CDT Plan of Treatment Health Maintenance Due Date Last Done Comments Pre-Diabetes and Diabetes Screening 1965 HEPATITIS B VACCINES (1 of 3 - 19+ 3-dose series) 11/09/1983 FIT-DNA Q 3 years 2009 FIT/FOBT Q 1 year 2009 Flex Sig/CT Colonography Q 5 years 2009 ZOSTER VACCINE (1 of 2) 2014 COLORECTAL SCREENING 07/05/2017 07/06/2007 Colorectal Cancer Screening 07/05/2017 DTAP/TDAP/TD VACCINES (2 - T d or Tdap) 07/28/2021 07/29/2011, 05/27/2002 INFLUENZA VACCINE (#1) 2024 9, 2013, 12/20/1995 Insurance MEDICAID [place]
--- OUTSIDE RECORDS SUMMARY | 2024-08-24 19:08 | XMS_ITS | Patient Health Record ---
Author Organization [facility] Address [address] [place] [address] Support Name Relationship Address , Radha Crow Emergency Contact Unknown Unavailable Cyndi Baca Guarantor Unknown [phone] Care Team Providers Care Registered Phlebotomist Part Time Name Role Phone Dr Benson Deleon DO Primary Care Provider Unav Mary Kate Dickinson Unavailable [phone] Hector Pearce Unavailable Unavailable Migration, Provider Unavailable Unavailable Kristen Russo Unavailable [phone] Robbie Crowder Unavailable [phone] Apolonia Lovelace Unavailable [phone] Reason For Referral No Information Medications Medication SIG (Take, Route, Frequency, Duration) Notes Start Date End Date Status F[facility]otidine [facility] Active Gabapentin *[facility]* Active [facility]* Active atorvastatin [facility]* Active glipiZIDE *[facility]* Active quetiapine *[facility]* Active Escitalopram Oxalate *[facility]ren [facility]* Active Problems Problem Type SNOMED Code ICD Code Onset Dates Problem Status W/U Status Risk Notes Problem 711617964 History of kidney stones (Z87.442) Active confirmed Problem 80371390 Cystitis (N30.90) Active confirmed Encounters Encounter Location Date Provider Diagnosis [facility] [place] [address] [place] [address] 10/06/2023 Apolonia Lovelace [facility] [place] [address] [place] [address] 11/09/2023 Robbie Crowder Migrated_Facility 0 0 12/10/2023 Provider Migration Migrated_Facility 0 0 12/11/2023 Provider Migration Plan Of Treatment No Information Insurance Providers Payer Name Payer Address Payer Phone Subscriber Number Group Number Insured Name Patient Relationship to Insured Coverage Start Date Coverage End Date [place] [address] [place] [address] [id number] Cyndi Baca Self - patient is the insured Medical (General) History Surgical History Surgery Date(Month/Year) Hysterectomy cholecystectomy section
--- OUTSIDE RECORDS SUMMARY | 2024-08-24 19:08 | XMS_ITS | Encounter Summary ---
Author Organization [facility] Address [address] [place] [address] Care Team Providers Care Painter Supervisor Name Role Phone Zack Gandara MD Primary Care Provider Encounter Details Date Type Department Care Team (Latest Contact Info) Description 03/24/2004 Outpatient Historical [facility] Internal Medicine and Pediatrics-[address] [place] [address] Karina Garibay MD NO ADDRESS ON FILE LUMBAGO (Primary Dx) Social History Tobacco Use Types Packs/Day Years Used Date Smoking Tobacco: Never Assessed Comments Unknown Sex and Gender Information Value Date Recorded Sex Assigned at Not on file Legal Sex Female 4: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
--- OUTSIDE RECORDS SUMMARY | 2024-08-24 19:08 | XMS_ITS | Encounter Summary ---
Author Organization [facility] Address [address] [place] [address] Care Team Providers Care Linux Unix Engineer Name Role Phone Zack Gandara MD Primary Care Provider [phone]- [phone] Encounter Details Date Type Department Care Team (Latest Contact Info) Description 01/28/2005 Outpatient Historical [facility] [address] 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
--- OUTSIDE RECORDS SUMMARY | 2024-08-24 19:08 | XMS_ITS | Encounter Summary ---
Author Organization [facility] Address [address] [place] [address] Care Team Providers Care Softlines Supervisor Name Role Phone Zack Gandara MD Primary Care Provider [phone] Encounter Details Date Type Department Care Team (Late st Contact Info) Description 03/22/2004 Emergency [facility] Emergency Department [address] 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
--- OUTSIDE RECORDS SUMMARY | 2024-08-24 19:08 | XMS_ITS | Encounter Summary ---
Author Organization [facility] Address [address] [place] [address] Care Team Providers Care Supervisor Of Operations Name Role Phone Zack Gandara MD Primary Care Provider [phone]- [phone] Encounter Details Date Type Department Care Team (Latest Contact Info) Description 05/14/2005 Outpatient Historical [facility] Medicine [address] [address] Juancarlos Obrien MD NO ADDRESS ON FILE Lumbago (Primary Dx); Bipolar Disorder, Unspecified (CMS/HCC) Social History Tobacco Use Types Packs/Day Years Used Date Smoking Tobacco: Never Assessed Comments Unknown Sex and Gender Information Value Date Recorded Sex Assigned at Not on file Legal Sex Female 4: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
--- OUTSIDE RECORDS SUMMARY | 2024-08-24 19:08 | XMS_ITS | Encounter Summary ---
Author Organization [facility] Address [address] [place] [address] Care Team Providers Care Medical Consultant Name Role Phone Zack Gandara MD Primary Care Provider [phone]- [phone] Encounter Details Date Type Department Care Team (Latest Contact Info) Description 04/27/2004 Outpatient Historical [facility] [address] [place] [address] [place] [address] Dheeraj Ayers MD NO ADDRESS ON FILE BACKACHE NOS (Primary Dx) Social History Tobacco Use Types Packs/Day Years Used Date Smoking Tobacco: Never Assessed Comments Unknown Sex and Gender Information Value Date Recorded Sex Assigned at Not on file Legal Sex Female 4:09 AM VP MOBILE PRODUCTS Gender Identity Not on file Sexual Orientation Not on file documented as of this encounter Plan of Treatment Not on file documented as of this encounter Visit Diagnoses Diagnosis Backache, unspecified- Primary documented in this encounter Care Teams Medical Consultant Relationship Specialty Start Date End Date Zack Gandara MD PCP - General Family Practice 01/23/19 03/19/19 documented as of this encounter
--- OUTSIDE RECORDS SUMMARY | 2024-08-24 19:08 | XMS_ITS | Encounter Summary ---
Author Organization [facility] Address [address] [place] [address] Care Team Providers Care Dovetailer Name Role Phone Zack Gandara MD Primary Care Provider [phone]- [phone] Encounter Details Date Type Department Care Team (Latest Contact Info) Description 04/27/2004 Outpatient Historical [facility] [address] [place] [address] Dheeraj Ayers MD NO ADDRESS ON FILE Lumbar disc displacement (Primary Dx) Social History Tobacco Use Types Packs/Day Years Used Date Smoking Tobacco: Never Assessed Comments Unknown Sex and Gender Information Value Date Recorded Sex Assigned at Not on file Legal Sex Female 4:09 AM FOLDER MACHINE Gender Identity Not on file Sexual Orientation Not on file documented as of this encounter Plan of Treatment Not on file documented as of this encounter Visit Diagnoses Diagnosis Lumbar disc displacement- Primary Displacement of lumbar intervertebral disc without myelopathy documented in this encounter Care Teams Dovetailer Relationship Specialty Start Date End Date Zack Gandara MD PCP - General Family Practice 01/23/19 03/19/19 documented as of this encounter
--- OUTSIDE RECORDS SUMMARY | 2024-08-24 19:08 | XMS_ITS | Encounter Summary ---
Author Organization [facility] Address [address] [place] [address] Care Team Providers Care Business Proposal Rep Name Role Phone Zack Gandara MD Primary Care Provider Encounter Details Date Type Department Care Team (Latest Contact Info) Description 03/22/2005 Outpatient Historical [facility] Medicine [address] [place] [address] Juancarlos Obrien MD NO ADDRESS ON FILE LUMBAGO (Primary Dx); BIPOLAR - MOST RECENTLY MANIC NOS (CMS/HCC) Social History Tobacco Use Types Packs/Day Years Used Date Smoking Tobacco: Never Assessed Comments Unknown Sex and Gender Information Value Date Recorded Sex Assigned at Not on file Legal Sex Female 4:09 AM DRAWING IN MACHINE TENDER Gender Identity Not on file Sexual Orientation Not on file documented as of this encounter Plan of Treatment Not on file documented as of this encounter Visit Diagnoses Diagnosis Lumbago- Primary Bipolar I disorder, most recent episode (or current) manic, unspecified (CMS/HCC) Bipolar I disorder, most recent episode (or current) manic, unspecified documented in this encounter Care Teams Business Proposal Rep Relationship Specialty Start Date End Date Zack Gandara MD PCP - General Family Practice 01/23/19 03/19/19 documented as of this encounter
--- OUTSIDE RECORDS SUMMARY | 2024-08-24 19:08 | XMS_ITS | Encounter Summary ---
Author Organization [facility] Address [address] [place] [address] Care Team Providers Care Weight Trainer Name Role Phone Zack Gandara MD Primary Care Provider +1- [phone] Encounter Details Date Type Department Care Team (Latest Contact Info) Description 02/06/2005 Outpatient Historical [facility] [address] [place] [address] Phu Mir MD NO ADDRESS ON FILE Conversion, History NO ADDRESS ON FILE ANXIETY STATE NOS (Primary Dx); HEADACHE Social History Tobacco Use Types Packs/Day Years Used Date Smoking Tobacco: Never Assessed Comments Unknown Sex and Gender Information Value Date Recorded Sex Assigned at Not on file Legal Sex Female 4:09 AM PROCESS OWNER Gender Identity Not on file Sexual Orientation Not on file documented as of this encounter Plan of Treatment Not on file documented as of this encounter Visit Diagnoses Diagnosis Anxiety state, unspecified- Primary Headache(784.0) Headache documented in this encounter Care Teams Weight Trainer Relationship Specialty Start Date End Date Zack Gandara MD PCP - General Family Practice 01/23/19 03/19/19 documented as of this encounter
--- OUTSIDE RECORDS SUMMARY | 2024-08-24 19:08 | XMS_ITS | Encounter Summary ---
Author Organization [facility] Address [address] [place] [address] Care Team Providers Care Painter Foreman Name Role Phone Zack Gandara MD Primary Care Provider Encounter Details Date Type Department Care Team (Latest Contact Info) Description 08/31/2005 Outpatient Historical [facility] Medicine [address] [place] [address] Juancarlos Obrien MD NO ADDRESS ON FILE Sprain of Neck (Primary Dx); Sprain Thoracic Region Social History Tobacco Use Types Packs/Day Years Used Date Smoking Tobacco: Never Assessed Comments Unknown Sex and Gender Information Value Date Recorded Sex Assigned at Not on file Legal Sex Female 4:09 AM EQUIPMENT OPERATOR WAGE HAND Gender Identity Not on file Sexual Orientation Not on file documented as of this encounter Plan of Treatment Not on file documented as of this encounter Visit Diagnoses Diagnosis Sprain of neck- Primary Neck sprain and strain Sprain thoracic region Sprain of thoracic region documented in this encounter Care Teams Painter Foreman Relationship Specialty Start Date End Date Zack Gandara MD PCP - General Family Practice 01/23/19 03/19/19 documented as of this encounter
--- OUTSIDE RECORDS SUMMARY | 2024-08-24 19:08 | XMS_ITS | Encounter Summary ---
Author Organization [facility] Address [address] [place] [address] Care Team Providers Care Graphic Design Professor Name Role Phone Zack Gandara MD Primary Care Provider [phone]- [phone] Encounter Details Date Type Department Care Team (Latest Contact Info) Description 07/05/2005 Outpatient Historical [facility] Medicine [address] [place] [address] Juancarlos Obrien MD NO ADDRESS ON FILE Unspecified Symptom Associated with Female Genital Organs (Primary Dx) Social History Tobacco Use Types Packs/Day Years Used Date Smoking Tobacco: Never Assessed Comments Unknown Sex and Gender Information Value Date Recorded Sex Assigned at Not on file Legal Sex Female 4:09 AM ELECTRICAL MECHANIC Gender Identity Not on file Sexual Orientation Not on file documented as of this encounter Plan of Treatment Not on file documented as of this encounter Visit Diagnoses Diagnosis Unspecified symptom associated with female genital organs- Primary documented in this encounter Care Teams Graphic Design Professor Relationship Specialty Start Date End Date Zack Gandara MD PCP - General Family Practice 01/23/19 03/19/19 documented as of this encounter
--- OUTSIDE RECORDS SUMMARY | 2024-08-24 19:08 | XMS_ITS | Encounter Summary ---
Author Organization [facility] Address [address] [place] [address] Care Team Providers Care Internal Specialist Name Role Phone Zack Gandara MD Primary Care Provider [phone] Encounter Details Date Type Department Care Team (Late st Contact Info) Description 08/30/2004 Outpatient Historical [facility] [address] [place] [address] Gian Downey MD NO ADDRESS ON FILE David Mendoza MD NO ADDRESS ON FILE VOMITING ALONE (Primary Dx); DIARRHEA NOS Social History Tobacco Use Types Packs/Day Years Used Date Smoking Tobacco: Never Assessed Comments Unknown Sex and Gender Information Value Date Recorded Sex Assigned at Not on file Legal Sex Female 4:09 AM NETBACKUP ENGINEER Gender Identity Not on file Sexual Orientation Not on file documented as of this encounter Plan of Treatment Not on file documented as of this encounter Visit Diagnoses Diagnosis Vomiting alone- Primary Diarrhea documented in this encounter Care Teams Internal Specialist Relationship Specialty Start Date End Date Zack Gandara MD PCP - General Family Practice 01/23/19 03/19/19 documented as of this encounter
--- OUTSIDE RECORDS SUMMARY | 2024-08-24 19:08 | XMS_ITS | Encounter Summary ---
Author Organization [facility] Address [address] [place] [address] Care Team Providers Care Safety Aide Name Role Phone Zack Gandara MD Primary Care Provider [phone]- [phone] Encounter Details Date Type Department Care Team (Late st Contact Info) Description 05/14/[address] [facility] Medicine- [facility] [address] [place] [address] David Mendoza MD NO ADDRESS ON FILE LUMBAGO (Primary Dx); OBESITY NOS Social History Tobacco Use Types Packs/Day Years Used Date Smoking Tobacco: Never Assessed Comments Unknown Sex and Gender Information Value Date Recorded Sex Assigned at Not on file Legal Sex Female 4:09 AM PARTY CHIEF Gender Identity Not on file Sexual Orientation Not on file documented as of this encounter Plan of Treatment Not on file documented as of this encounter Visit Diagnoses Diagnosis Lumbago- Primary Obesity, unspecified documented in this encounter Care Teams Safety Aide Relationship Specialty Start Date End Date Zack Gandara MD PCP - General Family Practice 01/23/19 03/19/19 documented as of this encounter
--- OUTSIDE RECORDS SUMMARY | 2024-08-24 19:08 | XMS_ITS | Encounter Summary ---
Author Organization [facility] Address [address] [place] [address] Care Team Providers Care Sales Support Administrator Name Role Phone Zack Gandara MD Primary Care Provider +1- [phone] Encounter Details Date Type Department Care Team (Latest Contact Info) Description 06/29/2005 Outpatient Historical [facility] Medicine [address] [address] Juancarlos Obrien MD NO ADDRESS ON FILE Other Malaise and Fatigue (Primary Dx); Dyspareunia; Unspecified Sleep Apnea; Unspecified Constipation Social History Tobacco Use Types Packs/Day Years Used Date Smoking Tobacco: Never Assessed Comments Unknown Sex and Gender Information Value Date Recorded Sex Assigned at Not on file Legal Sex Female 4:09 AM BUSINESS LOAN PROCESSOR Gender Identity Not on file Sexual Orientation Not on file documented as of this encounter Plan of Treatment Not on file documented as of this encounter Visit Diagnoses Diagnosis Other malaise and fatigue- Primary Dyspareunia Unspecified sleep apnea Unspecified constipation documented in this encounter Care Teams Sales Support Administrator Relationship Specialty Start Date End Date Zack Gandara MD PCP - General Family Practice 01/23/19 03/19/19 documented as of this encounter
--- OUTSIDE RECORDS SUMMARY | 2024-08-24 19:08 | XMS_ITS | Encounter Summary ---
Author Organization [facility] Address [address] [place] [address] Care Team Providers Care Media Promoter Name Role Phone Zack Gandara MD Primary Care Provider Encounter Details Date Type Department Care Team (Late st Contact Info) Description 12/20/2004 Outpatient Historical [facility] [address] [place] [address] Carl Huang, [address] [place], [place] [id number] Moisés Nowak DO [address] [address] LUMBAGO (Primary Dx) Social History Tobacco Use Types Packs/Day Years Used Date Smoking Tobacco: Never Assessed Comments Unknown Sex and Gender Information Value Date Recorded Sex Assigned at Not on file Legal Sex Female 4:09 AM CALCINE FURNACE TENDER Gender Identity Not on file Sexual Orientation Not on file documented as of this encounter Plan of Treatment Not on file documented as of this encounter Visit Diagnoses Diagnosis Lumbago- Primary documented in this encounter Care Teams Media Promoter Relationship Specialty Start Date End Date Zack Gandara MD PCP - General Family Practice 01/23/19 03/19/19 documented as of this encounter
--- OUTSIDE RECORDS SUMMARY | 2024-08-24 19:08 | XMS_ITS | Encounter Summary ---
Author Organization [facility] Address [address] [place] [address] Care Team Providers Care Automation Tender Name Role Phone Zack Gandara MD Primary Care Provider Encounter Details Date Type Department Care Team (Latest Contact Info) Description 06/04/2005 Outpatient Historical [facility] Family Medicine [address] [place] [address] Juancarlos Obrien MD NO ADDRESS ON FILE Lumbago (Primary Dx) Social History Tobacco Use Types Packs/Day Years Used Date Smoking Tobacco: Never Assessed Comments Unknown Sex and Gender Information Value Date Recorded Sex Assigned at Not on file Legal Sex Female 4:09 AM CTE TEACHER Gender Identity Not on file Sexual Orientation Not on file documented as of this encounter Plan of Treatment Not on file documented as of this encounter Visit Diagnoses Diagnosis Lumbago- Primary documented in this encounter Care Teams Automation Tender Relationship Specialty Start Date End Date Zack Gandara MD PCP - General Family Practice 01/23/19 03/19/19 documented as of this encounter
--- OUTSIDE RECORDS SUMMARY | 2024-08-24 19:08 | XMS_ITS | Encounter Summary ---
Author Organization [facility] Address [address] [place] [address] Care Team Providers Care Deployment Specialist Name Role Phone Zack Gandara MD Primary Care Provider [phone] Encounter Details Date Type Department Care Team (Late st Contact Info) Description 06/05/2004 Outpatient Historical [facility] Medicine- [facility] [address] [place] [address] David Mendoza MD NO ADDRESS ON FILE MIGRAINE NOS W/O MENTN INTRACTABLE (Primary Dx); DRUG ABUSE NEC-CONTIN Social History Tobacco Use Types Packs/Day Years Used Date Smoking Tobacco: Never Assessed Comments Unknown Sex and Gender Information Value Date Recorded Sex Assigned at Not on file Legal Sex Female 4:09 AM CYBER INTEL PLANNER Gender Identity Not on file Sexual Orientation Not on file documented as of this encounter Plan of Treatment Not on file documented as of this encounter Visit Diagnoses Diagnosis Migraine, unspecified, without mention of intractable migraine without mention of status migrainosus- Primary Other, mixed, or unspecified nondependent drug abuse, continuous documented in this encounter Care Teams Deployment Specialist Relationship Specialty Start Date End Date Zack Gandara MD PCP - General Family Practice 01/23/19 03/19/19 documented as of this encounter
--- OUTSIDE RECORDS SUMMARY | 2024-08-24 19:08 | XMS_ITS | Encounter Summary ---
Author Organization [facility] Address [address] [place] [address] Care Team Providers Care Rheumatologist Name Role Phone Zack Gandara MD Primary Care Provider Encounter Details Date Type Department Care Team (Latest Contact Info) Description 10/14/2004 Outpatient Historical [facility] [place] [address] [place] [address] Moisés Nowak DO [address] [place] [address] LUMBAGO (Primary Dx) Social History Tobacco Use Types Packs/Day Years Used Date Smoking Tobacco: Never Assessed Comments Unknown Sex and Gender Information Value Date Recorded Sex Assigned at Not on file Legal Sex Female 4:09 AM EYELETTER Gender Identity Not on file Sexual Orientation Not on file documented as of this encounter Plan of Treatment Not on file documented as of this encounter Visit Diagnoses Diagnosis Lumbago- Primary documented in this encounter Care Teams Rheumatologist Relationship Specialty Start Date End Date Zack Gandara MD PCP - General Family Practice 01/23/19 03/19/19 documented as of this encounter
--- OUTSIDE RECORDS SUMMARY | 2024-08-24 19:08 | XMS_ITS | Encounter Summary ---
Author Organization [facility] Address [address] [place] [address] Care Team Providers Care Computer Numerical Control Operator Name Role Phone Zack Gandara MD Primary Care Provider Encounter Details Date Type Department Care Team (Latest Contact Info) Description 04/13/2004 Outpatient Historical [facility] Urgent [address] [place] [address] Gerry Watson MD [address] [facility] [address] [place] [address] INFEC OTITIS EXTERNA NOS (Primary Dx) Social History Tobacco Use Types Packs/Day Years Used Date Smoking Tobacco: Never Assessed Comments Unknown Sex and Gender Information Value Date Recorded Sex Assigned at Not on file Legal Sex Female 4:09 AM CLAIMS SERVICE REPRESENTATIVE Gender Identity Not on file Sexual Orientation Not on file documented as of this encounter Plan of Treatment Not on file documented as of this encounter Visit Diagnoses Diagnosis Infective otitis externa, unspecified- Primary documented in this encounter Care Teams Computer Numerical Control Operator Relationship Specialty Start Date End Date Zack Gandara MD PCP - General Family Practice 01/23/19 03/19/19 documented as of this encounter
--- OUTSIDE RECORDS SUMMARY | 2024-08-24 19:08 | XMS_ITS | Encounter Summary ---
Author Organization [facility] Address [address] [place] [address] Care Team Providers Care Laborer Brush Clearing Name Role Phone Zack Gandara MD Primary Care Provider [phone]- [phone] Encounter Details Date Type Department Care Team (Latest Contact Info) Description 01/04/2005 Outpatient Historical [facility] [address] [place] [address] Gian Downey MD NO ADDRESS ON FILE Moisés Nowak DO [address] [place] [address] LUMBAGO (Primary Dx) Social History Tobacco Use Types Packs/Day Years Used Date Smoking Tobacco: Never Assessed Comments Unknown Sex and Gender Information Value Date Recorded Sex Assigned at Not on file Legal Sex Female 4:09 AM INTERNAL AUDIT DIRECTOR Gender Identity Not on file Sexual Orientation Not on file documented as of this encounter Plan of Treatment Not on file documented as of this encounter Visit Diagnoses Diagnosis Lumbago- Primary documented in this encounter Care Teams Laborer Brush Clearing Relationship Specialty Start Date End Date Zack Gandara MD PCP - General Family Practice 01/23/19 03/19/19 documented as of this encounter
--- OUTSIDE RECORDS SUMMARY | 2024-08-24 19:08 | XMS_ITS | Encounter Summary ---
Author Organization [facility] Address [address] [place] [address] Care Team Providers Care Industrial Servicer Name Role Phone Zack Gandara MD Primary Care Provider +1- [phone] Encounter Details Date Type Department Care Team (Latest Contact Info) Description 06/11/2005 Outpatient Historical [facility] Family Medicine [address] [place] [address] Juancarlos Obrien MD NO ADDRESS ON FILE Lumbago (Primary Dx); Sprain Lumbar Region Social History Tobacco Use Types Packs/Day Years Used Date Smoking Tobacco: Never Assessed Comments Unknown Sex and Gender Information Value Date Recorded Sex Assigned at Not on file Legal Sex Female 4:09 AM AUTOMATIC SERGING MACHINE OPERATOR Gender Identity Not on file Sexual Orientation Not on file documented as of this encounter Plan of Treatment Not on file documented as of this encounter Visit Diagnoses Diagnosis Lumbago- Primary Sprain lumbar region Sprain of lumbar region documented in this encounter Care Teams Industrial Servicer Relationship Specialty Start Date End Date Zack Gandara MD PCP - General Family Practice 01/23/19 03/19/19 documented as of this encounter
--- OUTSIDE RECORDS SUMMARY | 2024-08-24 19:08 | XMS_ITS | Encounter Summary ---
Author Organization [facility] Address [address] [place] [address] Care Team Providers Care Presales Senior Specialist Name Role Phone Zack Gandara MD Primary Care Provider [phone] Encounter Details Date Type Department Care Team (Latest Contact Info) Description 04/14/2005 Outpatient Historical [facility] Family Medicine [address] [address] Juancarlos Obrien MD NO ADDRESS ON FILE BIPOLAR - MOST RECENTLY MANIC NOS (CMS/HCC) (Primary Dx); SACROILIITIS NEC Social History Tobacco Use Types Packs/Day Years Used Date Smoking Tobacco: Never Assessed Comments Unknown Sex and Gender Information Value Date Recorded Sex Assigned at Not on file Legal Sex Female 4:09 AM ORTHOPEDICS NURSE Gender Identity Not on file Sexual Orientation Not on file documented as of this encounter Plan of Treatment Not on file documented as of this encounter Visit Diagnoses Diagnosis Bipolar I disorder, most recent episode (or current) manic, unspecified (CMS/HCC)- Primary Bipolar I disorder, most recent episode (or current) manic, unspecified Sacroiliitis, not elsewhere classified documented in this encounter Care Teams Presales Senior Specialist Relationship Specialty Start Date End Date Zack Gandara MD PCP - General Family Practice 01/23/19 03/19/19 documented as of this encounter
--- OUTSIDE RECORDS SUMMARY | 2024-08-24 19:09 | XMS_ITS | Encounter Summary ---
Author Organization [facility] Address [address] [place]: [place] [address] Care Team Providers Care Clinical Laboratory Aides Teacher Name Role Phone Zack Gandara MD Primary Care Provider Encounter Details Date Type Department Care Team (Late st Contact Info) Description 03/25/1999 [place] [address] [address] Social History Tobacco Use Types Packs/Day Years Used Date Smoking Tobacco: Never Assessed Comments Unknown Sex and Gender Information Value Date Recorded Sex Assigned at Not on file Legal Sex Female 4:09 AM EVENT DECORATOR AND DESIGNER Gender Identity Not on file Sexual Orientation Not on file documented as of this encounter Plan of Treatment Not on file documented as of this encounter Visit Diagnoses Not on filedocumented in this encounter Care Teams Clinical Laboratory Aides Teacher Relationship Specialty Start Date End Date Zack Gandara MD PCP - General Family Practice 01/23/19 03/19/19 documented as of this encounter
--- OUTSIDE RECORDS SUMMARY | 2024-08-24 19:09 | XMS_ITS | Encounter Summary ---
Author Organization [facility] Address [address] [place] [address] Care Team Providers Care High Heel Builder Name Role Phone Zack Gandara MD Primary Care Provider Encounter Details Date Type Department Care Team (Late st Contact Info) Description 11/23/2007 Outpatient Historical [facility] Cardi[facility] Services [address] [place] [phone] Vinicio Nunez MD [address] [facility] [address] [place] [phone] Social History Tobacco Use Types Packs/Day Years Used Date Smoking Tobacco: Never Assessed Comments Unknown Sex and Gender Information Value Date Recorded Sex Assigned at Not on file Legal Sex Female 4:09 AM TRIAGE SPECIALIST Gender Identity Not on file Sexual Orientation Not on file documented as of this encounter Plan of Treatment Not on file documented as of this encounter Visit Diagnoses Not on filedocumented in this encounter Care Teams High Heel Builder Relationship Specialty Start Date End Date Zack Gandara MD PCP - General Family Practice 01/23/19 03/19/19 documented as of this encounter
--- OUTSIDE RECORDS SUMMARY | 2024-08-24 19:09 | XMS_ITS | Encounter Summary ---
Author Organization [facility] Address [address] [place] [address] Care Team Providers Care Title Abstractor Name Role Phone Zack Gandara MD Primary Care Provider [phone] Encounter Details Date Type Department Care Team (Late st Contact Info) Description 11/12/2007 Emergency [facility] Emergency Department [address] [place] [address] Ed, Physician NO ADDRESS ON FILE Charley Downs FNP NO ADDRESS ON FILE Unspecified Backache; Other Chronic Pain; Cellulitis and Abscess of Leg, except Foot; Personal History of Allergy to Penicillin; Personal History of Allergy to Other Anti-Infective Agent; Personal History of Allergy to Sulfonamides; Personal History of Allergy to Analgesic Agent Social History Tobacco Use Types Packs/Day Years Used Date Smoking Tobacco: Never Assessed Comments Unknown Sex and Gender Information Value Date Recorded Sex Assigned at Not on file Legal Sex Female 4:09 AM COORDINATING PRODUCER Gender Identity Not on file Sexual Orientation Not on file documented as of this encounter Plan of Treatment Not on file documented as of this encounter Visit Diagnoses Diagnosis Backache, unspecified Other chronic pain Cellulitis and abscess of leg, except foot Personal history of allergy to penicillin Personal history of allergy to other anti-infective agent Personal history of allergy to sulfonamides Personal history of allergy to analgesic agent documented in this encounter Care Teams Title Abstractor Relationship Specialty Start Date End Date Zack Gandara MD PCP - General Family Practice 01/23/19 03/19/19 documented as of this encounter
--- OUTSIDE RECORDS SUMMARY | 2024-08-24 19:09 | XMS_ITS | Encounter Summary ---
Author Organization [facility] Address [address] [place] [address] Care Team Providers Care Professor Of Social Work Name Role Phone Zack Gandara MD Primary Care Provider Encounter Details Date Type Department Care Team (Late st Contact Info) Description 12/16/[address] [facility] Emergency Department [address] [place] [phone] Rosaura Freeman, HYDRAULIC BOOM OPERATOR NO ADDRESS ON FILE LUMBAGO (Primary Dx) Social History Tobacco Use Types Packs/Day Years Used Date Smoking Tobacco: Never Assessed Comments Unknown Sex and Gender Information Value Date Recorded Sex Assigned at Not on file Legal Sex Female 4:09 AM RESEARCH CHEF Gender Identity Not on file Sexual Orientation Not on file documented as of this encounter Plan of Treatment Not on file documented as of this encounter Visit Diagnoses Diagnosis Lumbago- Primary documented in this encounter Care Teams Professor Of Social Work Relationship Specialty Start Date End Date Zack Gandara MD PCP - General Family Practice 01/23/19 03/19/19 documented as of this encounter
--- OUTSIDE RECORDS SUMMARY | 2024-08-24 19:09 | XMS_ITS | Encounter Summary ---
Author Organization [facility] Address [address] [place] [address] Care Team Providers Care Shape Carver Name Role Phone Zack Gandara MD Primary Care Provider [phone] Encounter Details Date Type Department Care Team (Latest Contact Info) Description 09/02/2005 Outpatient Historical [facility] [address] [place] [address] [place] [address] Juancarlos Obrien MD NO ADDRESS ON FILE Lumbago (Primary Dx) Social History Tobacco Use Types Packs/Day Years Used Date Smoking Tobacco: Never Assessed Comments Unknown Sex and Gender Information Value Date Recorded Sex Assigned at Not on file Legal Sex Female 4:09 AM VITREO RETINAL SURGEON Gender Identity Not on file Sexual Orientation Not on file documented as of this encounter Plan of Treatment Not on file documented as of this encounter Visit Diagnoses Diagnosis Lumbago- Primary documented in this encounter Care Teams Shape Carver Relationship Specialty Start Date End Date Zack Gandara MD PCP - General Family Practice 01/23/19 03/19/19 documented as of this encounter
--- OUTSIDE RECORDS SUMMARY | 2024-08-24 19:09 | XMS_ITS | Encounter Summary ---
Author Organization [facility] Address [address] [place]: Epic Prelude ADT [place] [address] Care Team Providers Care Conservation Coordinator Name Role Phone Zack Gandara MD Primary Care Provider Encounter Details Date Type Department Care Team (Late st Contact Info) Description 03/24/1999 Outpatient Historical Ed, Physician NO ADDRESS ON FILE Social History Tobacco Use Types Packs/Day Years Used Date Smoking Tobacco: Never Assessed Comments Unknown Sex and Gender Information Value Date Recorded Sex Assigned at Not on file Legal Sex Female 4:09 AM PRIVATE INVESTIGATOR SURVEILLANCE Gender Identity Not on file Sexual Orientation Not on file documented as of this encounter Plan of Treatment Not on file documented as of this encounter Visit Diagnoses Not on filedocumented in this encounter Care Teams Conservation Coordinator Relationship Specialty Start Date End Date Zack Gandara MD PCP - General Family Practice 01/23/19 03/19/19 documented as of this encounter
--- OUTSIDE RECORDS SUMMARY | 2024-08-24 19:09 | XMS_ITS | Encounter Summary ---
Author Organization [facility] Address [address] [place] [address] Care Team Providers Care Riding Instructor Name Role Phone Zack Gandara MD Primary Care Provider Encounter Details Date Type Department Care Team (Late st Contact Info) Description 11/22/2006 Outpatient Historical [facility] Orthopedics- [address] [place] [phone] David Kim MD [address] [place] [phone] Pain in Joint, Lower Leg (Primary Dx); Obesity, Unspecified; Unspecified Fall Social History Tobacco Use Types Packs/Day Years Used Date Smoking Tobacco: Never Assessed Comments Unknown Sex and Gender Information Value Date Recorded Sex Assigned at Not on file Legal Sex Female 4:09 AM WEAPONS MECHANIC Gender Identity Not on file Sexual Orientation Not on file documented as of this encounter Plan of Treatment Not on file documented as of this encounter Visit Diagnoses Diagnosis Pain in joint, lower leg- Primary Obesity, unspecified Unspecified fall documented in this encounter Care Teams Riding Instructor Relationship Specialty Start Date End Date Zack Gandara MD PCP - General Family Practice 01/23/19 03/19/19 documented as of this encounter
--- OUTSIDE RECORDS SUMMARY | 2024-08-24 19:09 | XMS_ITS | Encounter Summary ---
Author Organization [facility] Address [address] [place] [address] Care Team Providers Care Tile Classifier Name Role Phone Zack Gandara MD Primary Care Provider [phone] Encounter Details Date Type Department Care Team (Latest Contact Info) Description 08/15/2006 Outpatient Historical [facility] Medicine [address] [address] Juancarlos Obrien MD NO ADDRESS ON FILE Bipolar Disorder, Unspecified (CMS/HCC) (Primary Dx); Lumbago Social History Tobacco Use Types Packs/Day Years Used Date Smoking Tobacco: Never Assessed Comments Unknown Sex and Gender Information Value Date Recorded Sex Assigned at Not on file Legal Sex Female 4:09 AM PLANNED GIVING OFFICER Gender Identity Not on file Sexual Orientation Not on file documented as of this encounter Plan of Treatment Not on file documented as of this encounter Visit Diagnoses Diagnosis Bipolar disorder, unspecified (CMS/HCC)- Primary Bipolar disorder, unspecified Lumbago documented in this encounter Care Teams Tile Classifier Relationship Specialty Start Date End Date Zack Gandara MD PCP - General Family Practice 01/23/19 03/19/19 documented as of this encounter
--- OUTSIDE RECORDS SUMMARY | 2024-08-24 19:09 | XMS_ITS | Encounter Summary ---
Author Organization [facility] Address [address] [place]: Epic Prelude ADT [place] [address] Care Team Providers Care Director It Name Role Phone Zack Gandara MD Primary Care Provider [phone]- [phone] Encounter Details Date Type Department Care Team (Late st Contact Info) Description 04/16/1999 Outpatient Historical Sterling Eli MD NO ADDRESS ON FILE Social History Tobacco Use Types Packs/Day Years Used Date Smoking Tobacco: Never Assessed Comments Unknown Sex and Gender Information Value Date Recorded Sex Assigned at Not on file Legal Sex Female 4:09 AM SENIOR LABORATORY TECHNICIAN Gender Identity Not on file Sexual Orientation Not on file documented as of this encounter Plan of Treatment Not on file documented as of this encounter Visit Diagnoses Not on filedocumented in this encounter Care Teams Director It Relationship Specialty Start Date End Date Zack Gandara MD PCP - General Family Practice 01/23/19 03/19/19 documented as of this encounter
--- OUTSIDE RECORDS SUMMARY | 2024-08-24 19:09 | XMS_ITS | Encounter Summary ---
Author Organization [facility] Address [address] [place] [address] Care Team Providers Care Court Security Officer Name Role Phone Zack Gandara MD Primary Care Provider [phone] Encounter Details Date Type Department Care Team (Latest Contact Info) Description 10/20/2005 Outpatient Historical [facility] Family Medicine [address] [address] Juancarlos Obrien MD NO ADDRESS ON FILE Acute Sinusitis, Unspecified (Primary Dx); Lumbago Social History Tobacco Use Types Packs/Day Years Used Date Smoking Tobacco: Never Assessed Comments Unknown Sex and Gender Information Value Date Recorded Sex Assigned at Not on file Legal Sex Female 4:09 AM CHEMISTRY TECHNICAL OFFICER Gender Identity Not on file Sexual Orientation Not on file documented as of this encounter Plan of Treatment Not on file documented as of this encounter Visit Diagnoses Diagnosis Acute sinusitis, unspecified- Primary Lumbago documented in this encounter Care Teams Court Security Officer Relationship Specialty Start Date End Date Zack Gandara MD PCP - General Family Practice 01/23/19 03/19/19 documented as of this encounter
--- OUTSIDE RECORDS SUMMARY | 2024-08-24 19:09 | XMS_ITS | Encounter Summary ---
Author Organization [facility] Address [address] [place] [address] Care Team Providers Care Die Storage Clerk Name Role Phone Zakc Gandara MD Primary Care Provider +1- [phone] Encounter Details Date Type Department Care Team (Latest Contact Info) Description 04/26/2006 Outpatient Historical [facility] Family Medicine [address] [address] Juancarlos Obrien MD NO ADDRESS ON FILE Unspecified Sleep Apnea (Primary Dx); Lumbago; Unspecified Constipation; Bipolar Affective, Manic, Unspec (CMS/HCC) Social History Tobacco Use Types Packs/Day Years Used Date Smoking Tobacco: Never Assessed Comments Unknown Sex and Gender Information Value Date Recorded Sex Assigned at Not on file Legal Sex Female 4:09 AM EXCAVATING CONTRACTOR Gender Identity Not on file Sexual Orientation Not on file documented as of this encounter Plan of Treatment Not on file documented as of this encounter Visit Diagnoses Diagnosis Unspecified sleep apnea- Primary Lumbago Unspecified constipation Bipolar I disorder, most recent episode (or current) manic, unspecified (CMS/HCC) Bipolar I disorder, most recent episode (or current) manic, unspecified documented in this encounter Care Teams Die Storage Clerk Relationship Specialty Start Date End Date Zack Gandara MD PCP - General Family Practice 01/23/19 03/19/19 documented as of this encounter
--- OUTSIDE RECORDS SUMMARY | 2024-08-24 19:09 | XMS_ITS | Encounter Summary ---
Author Organization [facility] Address [address] [place] [address] Care Team Providers Care Value Stream Leader Name Role Phone Zack Gandara MD Primary Care Provider Encounter Details Date Type Department Care Team (Late st Contact Info) Description 04/24/2006 Outpatient Historical [facility] [address] [place] [address] [facility] Unspecified Backache (Primary Dx) Social History Tobacco Use Types Packs/Day Years Used Date Smoking Tobacco: Never Assessed Comments Unknown Sex and Gender Information Value Date Recorded Sex Assigned at Not on file Legal Sex Female 4:09 AM SUPERVISOR ESTIMATOR AND DRAFTER Gender Identity Not on file Sexual Orientation Not on file documented as of this encounter Plan of Treatment Not on file documented as of this encounter Visit Diagnoses Diagnosis Backache, unspecified- Primary documented in this encounter Care Teams Value Stream Leader Relationship Specialty Start Date End Date Zack Gandara MD PCP - General Family Practice 01/23/19 03/19/19 documented as of this encounter
--- OUTSIDE RECORDS SUMMARY | 2024-08-24 19:09 | XMS_ITS | Encounter Summary ---
Author Organization [facility] Address [address] [place] [address] Care Team Providers Care E Business Manager Name Role Phone Zack Gandara MD Primary Care Provider [phone]- [phone] Encounter Details Date Type Department Care Team (Late st Contact Info) Description 07/14/2003 Emergency [facility] Emergency Department [address] [place] [phone] Charley Downs FNP NO ADDRESS ON FILE LUMBAGO (Primary Dx) Social History Tobacco Use Types Packs/Day Years Used Date Smoking Tobacco: Never Assessed Comments Unknown Sex and Gender Information Value Date Recorded Sex Assigned at Not on file Legal Sex Female 4:09 AM LICENSED PRACTICAL VOCATIONAL NURSE Gender Identity Not on file Sexual Orientation Not on file documented as of this encounter Plan of Treatment Not on file documented as of this encounter Visit Diagnoses Diagnosis Lumbago- Primary documented in this encounter Care Teams E Business Manager Relationship Specialty Start Date End Date Zack Gandara MD PCP - General Family Practice 01/23/19 03/19/19 documented as of this encounter
--- OUTSIDE RECORDS SUMMARY | 2024-08-24 19:09 | XMS_ITS | Encounter Summary ---
Author Organization [facility] Address [address] [place] [address] Care Team Providers Care Vibrator Equipment Tester Name Role Phone Zack Gandara MD Primary Care Provider Encounter Details Date Type Department Care Team (Late st Contact Info) Description 04/24/2006 Emergency [facility] Emergency Department [address] [place] [phone] Ilana Figueroa MD [address] [place] [phone] Other Chronic Pain (Primary Dx) Social History Tobacco Use Types Packs/Day Years Used Date Smoking Tobacco: Never Assessed Comments Unknown Sex and Gender Information Value Date Recorded Sex Assigned at Not on file Legal Sex Female 4:09 AM HAND COMPOSITOR Gender Identity Not on file Sexual Orientation Not on file documented as of this encounter Plan of Treatment Not on file documented as of this encounter Visit Diagnoses Diagnosis Other chronic pain- Primary documented in this encounter Care Teams Vibrator Equipment Tester Relationship Specialty Start Date End Date Zack Gandara MD PCP - General Family Practice 01/23/19 03/19/19 documented as of this encounter
--- OUTSIDE RECORDS SUMMARY | 2024-08-24 19:09 | XMS_ITS | Encounter Summary ---
Author Organization [facility] Address [address] [place] [address] Care Team Providers Care Heat Treat Supervisor Name Role Phone Zack Gandara MD Primary Care Provider [phone] Encounter Details Date Type Department Care Team (Late st Contact Info) Description 06/01/2007 Outpatient Historical HIS IN BED Sj Ed, Physician NO ADDRESS ON FILE Sterling Eli MD NO ADDRESS ON FILE Sabino Troncoso MD [address] [place] [address] Nausea Alone; Body Mass Index 40 and Over, Adult; Obesity, Unspecified; Dysthymic Disorder; Chronic Pain Syndrome; Tobacco Use Disorder Social History Tobacco Use Types Packs/Day Years Used Date Smoking Tobacco: Never Assessed Comments Unknown Sex and Gender Information Value Date Recorded Sex Assigned at Not on file 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 DIFFICILE DETECTION Routine 8 9:[address] ABDOMEN PELVIS W CONTRAST Routine 06/01/2007 1:02 PM CDT DIFFERENTIAL, MANUAL Stat 06/01/2007 11:12 AM CDT CBC WITH DIFFERENTIAL Stat 06/01/2007 11:12 AM CDT LIPASE Stat 06/01/2007 11:12 AM CDT COMPREHENSIVE METABOLIC PANEL Stat 06/01/2007 11:12 AM CDT ICTOTEST Stat 06/01/2007 11:10 AM CDT URINALYSIS MICROSCOPY ONLY Stat 06/01/2007 11:10 AM CDT URINALYSIS W/REFLEX MICROSCOPIC Stat 06/01/2007 11:10 AM CDT documented in this encounter Results * (ABNORMAL) DIFFERENTIAL, MANUAL (06/04/2007 3:50 AM CDT) MONOCYTE 5 4 - 10 % [facility] RBC MORPHOLOGY Abnormal(A ) Normal [facility] BANDS 1 0 - 6 % [facility] ANISOCYTOSIS 1+(A) None Seen [facility] EOSINOPHILS 7(H) 0 - 3 % [facility] LYMPHOCYTES 65(H) 24 - 44 % [facility] PLATELET EST. Normal Normal [facility] NEUTROPHILS, SEG 22(L) 36 - 66 % [facility] Blood specimen (specimen) 06/04/2007 3:50 AM CDT 06/04/2007 4:01 AM CDT Narrative [facility] - 06/04/2007 5:10 AM CDT Differential ordered by policy. Sabino Troncoso MD HEMATOLOGY ORDERABLES COM Final Result Performing Organization Address [facility] [address]/[facility] Co de Phone Number [facility] [address] [place] [address] * (ABNORMAL) CBC WITH DIFFERENTIAL (06/04/2007 3:50 AM CDT) HEMOGLOBIN 11.7(L) 12.0 - 16.0 g/dL [facility] RDW 15.0(H) 11.0 - 14.5 % [facility] WBC 9.5 4.5 - 11.0 K/ul [facility] MCH 28.7 27.0 - 34.0 pg [facility] HEMATOCRIT 37.2 36.0 - 46.0 % [facility] PLATELETS 151 140 - 440 K/ul [facility] RBC 4.07(L) 4.20 - 5.40 Mil/ul [facility] MCHC 31.5 30.0 - 35.0 g/dL [facility] MCV 91.4 84.0 - 103.0 Fl [facility] MPV 9.8 8.9 - 12.8 Fl [facility] Blood specimen (specimen) 06/04/2007 3:50 AM CDT 06/04/2007 4:01 AM CDT Sabino Troncoso MD HEMATOLOGY ORDERABLES Fin al Result Performing Organization Address City/[facility] [address]/ZIP Co de Phone Number [facility] [address] [place] [address] * URINE CULTURE (06/03/2007 4:50 PM CDT) FINAL REPORT 1000 CFU/ml Gram positive cocci Further workup on non-catheterized urine cultures on quantities <5000 col/ml not indicated. Please notify Microbiology if further identification and/or susceptibility requested. INTERFACE SYSTEM 06/03/2007 4:50 PM CDT 06/03/2007 4:50 PM CDT Sabino Troncoso MD MICROBIOLOGY - GENERAL OR DERABLES Final Result Performing Organization Address [facility] [address]/[facility] de Phone Number INTERFACE SYSTEM Refer to clinic/hospital department * URINE CULTURE (06/02/2007 11:31 AM CDT) FINAL REPORT Mixed gram positive olga suggestive of genital/skin olga. If clinically indicated, please submit an appropriately collected specimen. INTERFACE SYSTEM 06/02/2007 11:3 1 AM CDT 06/02/2007 11:31 AM CDT Sabino Troncoso MD MICROBIOLOGY - GENERAL OR DERABLES Final Result Performing Organization Address [facility] [address]/[facility] Phone Number INTERFACE SYSTEM Refer to clinic/hospital department * (ABNORMAL) COMPREHENSIVE METABOLIC PANEL (06/02/2007 4:05 AM CDT) GLUCOSE 89 70 - 110 mg/dL [facility] ALKALINE PHOSPHATASE 212(H) 25 - 100 U/L [facility] CHLORIDE 113(H) 95 - 110 mEq/L [facility] OSMOLALITY, CALCULATED 286 275 - 295 mOsm/Kg [facility] GLOBULIN (CALC) 2.9 2.4 - 3.9 g/dL [facility] TOTAL PROTEIN 5.7(L) 6.3 - 8.2 g/dL [facility] SODIUM 141 136 - 145 mEq/L [facility] BILIRUBIN TOTAL 0.2(L) 0.3 - 1.2 mg/dL [facility] CO2 23 22 - 32 mmol/l [facility] BUN 5(L) 7 - 17 mg/dL [facility] AST 75(H) 8 - 33 U/L [facility] ALBUMIN/GLOBULIN RATIO 1.0 1.0 - 2.3 [facility] POTASSIUM 3.7 3.5 - 5.0 mEq/L [facility] ANION GAP 9 9 - 20 mEq/L [facility] ALBUMIN 2.8(L) 3.5 - 5.0 g/dL [facility] CREATININE 0.5(L) 0.7 - 1.2 mg/dL [facility] ALT 23 4 - 36 IU/L [facility] CALCIUM 8.1(L) 8.4 - 10.5 mg/dL [facility] Blood specimen (specimen) 06/02/2007 4:05 AM CDT 06/02/2007 4:21 AM CDT Sabino Troncoso MD CHEMISTRY ORDERABLES Chichi conley Result Performing Organization Address City/State/[facility] Co de Phone Number [facility] [address] [place] [address] * (ABNORMAL) CBC WITH DIFFERENTIAL (06/02/2007 4:05 AM CDT) LYMPHOCYTE ABSOLUTE 8.7(H) 1.2 - 4.0 K/ul [facility] LYMPHOCYTES 73.1(H) 24.0 - 44.0 % [facility] RBC 4.03(L) 4.20 - 5.40 Mil/ul [facility] MCHC 31.8 30.0 - 35.0 g/dL [facility] BASOPHILS 3.0(H) 0.0 - 1.0 % [facility] MCV 90.6 84.0 - 103.0 Fl [facility] BASOPHILS ABSOLUTE 0.4(H) 0.0 - 0.2 K/ul [facility] MPV 10.3 8.9 - 12.8 Fl [facility] MONOCYTES 11.7(H) 2.0 - 10.0 % [facility] HEMOGLOBIN 11.6(L) 12.0 - 16.0 g/dL [facility] MONOCYTE ABSOLUTE 1.4(H) 0.1 - 0.6 K/ul [facility] RDW 14.7(H) 11.0 - 14.5 % [facility] NEUTROPHILS 11.1(L) 42.2 - 75.2 % [facility] WBC 11.8(H) 4.5 - 11.0 K/ul [facility] NEUTROPHIL ABSOLUTE 1.3(L) 2.0 - 8.0 K/ul [facility] MCH 28.8 27.0 - 34.0 pg [facility] EOSINOPHIL ABSOLUTE 0.1 0.0 - 0.7 K/ul [facility] EOSINOPHILS 1.1 0.0 - 7.0 % [facility] HEMATOCRIT 36.5 36.0 - 46.0 % [facility] PERIPHERAL BLOOD SMEAR REVIEW Smear Reviewed [facility] Comment: Most lymphs atypical. PLATELETS 144 140 - 440 K/ul [facility] Blood specimen (specimen) 06/02/2007 4:05 AM CDT 06/02/2007 4:20 AM CDT Sabino Troncoso MD HEMATOLOGY ORDERABLES Rohit sabi Performing Organization Address City/[facility] [address]/[facility] Co de Phone Number [facility] [address] [place] [address] * CLOSTRIDIUM DIFFICILE TOXIN (06/01/2007 9:31 PM CDT) C DIFFICILE TOXIN Negative Negative [facility] 06/01/2007 9:31 PM CDT 06/01/2007 9:31 PM CDT Sabino Troncoso MD MICROBIOLOGY - GENERAL OR DERABLES Final Result Performing Organization Address [facility] [address]/[facility] Co de Phone Number [facility] [address] [place] [address] * CT ABDOMEN PELVIS W CONTRAST (06/01/2007 1:02 PM CDT) Anatomical Region Laterality Modality Abdomen Other 06/01/2007 1:02 PM CDT Narrative 06/01/2007 9:08 PM CDT Exam: CT Abdomen, Pelvis, w/contrast Date/Time of Exam: Jun 01, 2007 1:02:11 PM History: Please see admitting diagnosis. Axial tomograms obtained through the abdomen and pelvis with Optiray-240 intravenous contrast, 125 mL. Oral and rectal contrast administered. Visualized lung bases unremarkable. Nonspecific 2 cm right adrenal nodule. Remainder of solid upper intra-abdominal organs unremarkable. Surgical absence of gallbladder. No apparent lymphadenopathy by size criteria. No free fluid. Surgical absence of uterus. The appearance of mild wall thickening of sigmoid colon of which a component of suboptimal distention is likely. Similar consideration of transverse colon. Few scattered colonic diverticula without apparent accompanying inflammatory change. Small to moderate sized left paramedian fat containing ventral hernia near the level of umbilicus. No abnormal appearing appendix. Impression: The appearance of mild wall thickening of majority of sigmoid and transverse colon of which a component of suboptimal distention is likely. Inflammatory bowel disease cannot be entirely excluded. Clinical correlation recommended. Few scattered colonic diverticula without apparent accompanying inflammatory change. Small to moderate sized left paramedian fat containing ventral hernia. Nonspecific 2 cm right adrenal nodule. - Dictated By: Hannah Pendleton M.D. Electronically Signed By: Hannah Pendleton M.D. Date Signed: 06/01/07 [facility] Procedure Note Hannah Pendleton S - 06/01/2007 Exam: CT Abdomen, Pelvis, w/contrast Date/Time of Exam: Jun 01, 2007 1:02:11 PM History: Please see admitting diagnosis. Axial tomograms obtained through the abdomen and pelvis with Optiray- 240intravenous contrast, 125 mL. Oral and rectal contrast administered. Visualized lung bases unremarkable. Nonspecific 2 cm right adrenal nodule.Remainder of solid upper intra-abdominal organs unremarkable. Surgical absence of gallbladder. Noapparent lymphadenopathy by size criteria. No free fluid. Surgical absence of uterus. The appearanceof mild wall thickening of sigmoid colon of which a component of suboptimal distention is likely.Similar consideration of transverse colon. Few scattered colonic diverticula without apparentaccompanying inflammatory change. Small to moderate sized left paramedian fat containing ventral hernia nearthe level of umbilicus. No abnormal appearing appendix. Impression: The appearance of mild wall thickening of majority of sigmoidand transverse colon of which a component of suboptimal distention is likely. Inflammatory bowel diseasecannot be entirely excluded. Clinical correlation recommended. Few scattered colonic diverticulawithout apparent accompanying inflammatory change. Small to moderate sized left paramedian fatcontaining ventral hernia. Nonspecific 2 cm right adrenal nodule. - Dictated By: Hannah Pendleton M.D. Electronically Signed By: Hannah Pendleton M.D. Date Signed: 06/01/07 SDM us Sterling Eli MD CT ORDERABLES Final Resu lt * (ABNORMAL) DIFFERENTIAL, MANUAL (06/01/2007 11:12 AM CDT) BLAST 1(H) <=0 % [facility] BANDS 2 0 - 6 % [facility] MONOCYTE 6 4 - 10 % [facility] PLATELET EST. Normal Normal [facility] LYMPHOCYTES 44 24 - 44 % [facility] NEUTROPHILS, SEG 28(L) 36 - 66 % [facility] RBC MORPHOLOGY Normal Normal [facility] BASOPHILS 1 0 - 1 % [facility] ATYPICAL LYMPHOCYTE 18(H) <=0 % [facility] Blood specimen (specimen) 06/01/2007 11:12 AM CDT 06/01/2007 11:15 AM CDT Narrative [facility] - 06/01/2007 11:34 AM CDT Differential ordered by policy. us Sterling Eli MD HEMATOLOGY ORDERABLES COM Final Result [facility] [address] [place] [address] * (ABNORMAL) CBC WITH DIFFERENTIAL (06/01/2007 11:12 AM CDT) WBC 17.9(H) 4.5 - 11.0 K/ul [facility] MCH 29.4 27.0 - 34.0 pg [facility] HEMATOCRIT 42.8 36.0 - 46.0 % [facility] PLATELETS 168 140 - 440 K/ul [facility] RBC 4.76 4.20 - 5.40 Mil/ul [facility] MCHC 32.7 30.0 - 35.0 g/dL [facility] MCV 89.9 84.0 - 103.0 Fl [facility] MPV 10.2 8.9 - 12.8 Fl [facility] HEMOGLOBIN 14.0 12.0 - 16.0 g/dL [facility] RDW 14.5 11.0 - 14.5 % [facility] Blood specimen (specimen) 06/01/2007 11:12 AM CDT 06/01/2007 11:15 AM CDT us Sterling Eli MD HEMATOLOGY ORDERABLES Edit ed Performing Organization Address City/State/[facility] Co de Phone Number [facility] [address] [place] [address] * (ABNORMAL) COMPREHENSIVE METABOLIC PANEL (06/01/2007 11:12 AM CDT) POTASSIUM 4.0 3.5 - 5.0 mEq/L [facility] GLOBULIN (CALC) 3.9 2.4 - 3.9 g/dL [facility] ALBUMIN 3.6 3.5 - 5.0 g/dL [facility] CREATININE 0.7 0.7 - 1.2 mg/dL [facility] ALT 18 4 - 36 IU/L [facility] CALCIUM 9.0 8.4 - 10.5 mg/dL [facility] OSMOLALITY, CALCULATED 280 275 - 295 mOsm/Kg [facility] GLUCOSE 95 70 - 110 mg/dL [facility] ALKALINE PHOSPHATASE 218(H) 25 - 100 U/L [facility] CHLORIDE 108 95 - 110 mEq/L [facility] ALBUMIN/GLOBULIN RATIO 0.9(L) 1.0 - 2.3 [facility] TOTAL PROTEIN 7.5 6.3 - 8.2 g/dL [facility] SODIUM 137 136 - 145 mEq/L [facility] BILIRUBIN TOTAL 0.3 0.3 - 1.2 mg/dL [facility] BUN 7 7 - 17 mg/dL [facility] CO2 24 22 - 32 mmol/l [facility] ANION GAP 9 9 - 20 mEq/L [facility] AST 56(H) 8 - 33 U/L [facility] Blood specimen (specimen) 06/01/2007 11:12 AM CDT 06/01/2007 11:15 AM CDT Sterling Eli MD CHEMISTRY ORDERABLES Final Result Performing Organization Address [facility] [address]/[facility] Phone Number [facility] [address] [place] [address] * LIPASE (06/01/2007 11:12 AM CDT) LIPASE 28 6 - 51 U/L [facility] Blood specimen (specimen) 06/01/2007 11:12 AM CDT 06/01/2007 11:15 AM CDT Sterling Eli MD CHEMISTRY ORDERABLES Final Result Performing Organization Address [facility] Number [facility] [address] [place] [id number] * (ABNORMAL) URINALYSIS MICROSCOPY ONLY (06/01/2007 11:10 AM CDT) HYALINE CAST 3-5(A) 0 - 2 [facility] WBC URINE 0-2 0 - 2 [facility] BACTERIA UA Many(A) None Seen [facility] RBC UA None Seen 0 - 2 [facility] Urine specimen (specimen) 06/01/2007 11:10 AM CDT 06/01/2007 11:13 AM CDT Narrative [facility] - 06/01/2007 11:28 AM CDT Microscopic ordered by policy Sterling Eli MD URINE ORDERABLES Final Res ult Performing Organization Address [facility] [address]/[facility] de Phone Number [facility] [address] [place] [address] * ICTOTEST (06/01/2007 11:10 AM CDT) ICTO Negative Negative [facility] Urine specimen (specimen) 06/01/2007 11:10 AM CDT 06/01/2007 11:13 AM CDT Narrative [facility] - 06/01/2007 11:28 AM CDT Bili verified by ictotest Sterling Eli MD URINE ORDERABLES Final Res ult Performing Organization Address [facility] de Phone Number [facility] [address] [place] [address] * (ABNORMAL) URINALYSIS (06/01/2007 11:10 AM CDT) PH UA 5.0 5.0 - 9.0 [facility] NITRITE UA NEGATIVE NEGATIVE [facility] SPECIFIC GRAVITY UA 1.034 <=1.005 [facility] COLOR UA Yellow Straw [facility] LEUKOCYTE ESTERASE UA NEGATIVE NEGATIVE [facility] BLOOD UA NEGATIVE NEGATIVE [facility] CLARITY UA SL CLOUDY Clear [facility] GLUCOSE UA NEGATIVE NEGATIVE [facility] UROBILINOGEN UA 1.0(A) 0.2 [facility] MICRO EXAM Yes(A) No [facility] PROTEIN UA 30 mg/dl(A) NEGATIVE [facility] KETONES UA Trace(A) NEGATIVE [facility] Urine specimen (specimen) 06/01/2007 11:10 AM CDT 06/01/2007 11:13 AM CDT Sterling Eli MD URINE ORDERABLES Final Res ult Performing Organization Address [facility] [address]/[facility] Co de Phone Number [facility] [address] [place] [address] documented in this encounter Visit Diagnoses Diagnosis Nausea alone Body mass index 40 and over, adult Body Mass Index 40 and over, adult Obesity, unspecified Dysthymic disorder Chronic pain syndrome Tobacco use disorder documented in this encounter Care Teams Heat Treat Supervisor Relationship Specialty Start Date End Date Zack Gandara MD PCP - General Family Practice 01/23/19 03/19/19 documented as of this encounter
--- OUTSIDE RECORDS SUMMARY | 2024-08-24 19:09 | XMS_ITS | Encounter Summary ---
Author Organization [facility] Address [address] [place] [address] Care Team Providers Care Green Chain Off Bearer Name Role Phone Zack Gandara MD Primary Care Provider Encounter Details Date Type Department Care Team (Late st Contact Info) Description 01/12/2008 Emergency [facility] Emergency Department [address] 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 Gender Identity Not on file Sexual Orientation Not on file documented as of this encounter Plan of Treatment Not on file documented as of this encounter Procedures Procedure Name Priority Date/Time Associated Diagnosis Comments XR HIP 2 OR 3 VIEWS RT Routine 8 5:29 PM SHOP CLERK XR KNEE 1 OR 2 VW RIGHT Routine 01/12/2008 3:39 PM SHOP CLERK BASIC METABOLIC PANEL PLUS Stat 01/12/2008 3:13 PM SHOP CLERK CBC WITH DIFFERENTIAL Stat 01/12/2008 3:13 PM SHOP CLERK SEDIMENTATION RATE Stat 01/12/2008 3: 13 PM SHOP CLERK C-REACTIVE PROTEIN Stat 01/12/2008 3: 13 PM SHOP CLERK BASIC METABOLIC PANEL Stat 01/12/2008 3:13 PM SHOP CLERK URINALYSIS W/REFLEX MICROSCOPIC Stat 01/12/2008 3:00 PM SHOP CLERK documented in this encounter Results * XR HIP 2+ VW RIGHT (01/12/2008 5:29 PM SHOP CLERK) Anatomical Region Laterality Modality Lower Extremity Right Other 01/12/2008 5:29 PM SHOP CLERK Narrative 01/12/2008 5:39 PM SHOP CLERK Two views of the right hip are submitted. Osteoarthritic changes are noted in the right hip. There is mild joint space narrowing with subchondral sclerosis. No acute fracture is identified. The visualized bowel gas pattern is nonspecific. Impression: 1. No acute bony abnormality is identified. - Dictated By: Jacinta Correia M.D. Electronically Signed By: Jacinta Correia M.D. Date Signed: 01/12/08 JAW Procedure Note Jacinta Correia - 01/12/2008 Two views of the right hip are submitted. Osteoarthritic changes are noted in the right hip. There is mild jointspace narrowing with subchondral sclerosis. No acute fracture is identified. The visualized bowel gaspattern is nonspecific. Impression: 1. No acute bony abnormality is identified. - Dictated By: Jacinta Correia M.D. Electronically Signed By: Jacinta Correia M.D. Date Signed: 01/12/08 JAW us Alba Salmon MD DIAGNOSTIC IMAGING ORDERABL ES Final Result * XR KNEE 1 OR 2 VW RIGHT (01/12/2008 3:39 PM SHOP CLERK) Anatomical Region Laterality Modality Lower Extremity Other 01/12/2008 3:39 PM SHOP CLERK Narrative 01/12/2008 5:12 PM SHOP CLERK Three views of the right knee are submitted. Osteoarthritic changes are noted. There is joint space narrowing with medial sclerosis and marginal osteophyte formation. Less prominent osteoarthritic changes are noted in the lateral knee joint and patellofemoral compartment. A probable small intra-articular body is noted in the knee joint best seen on the AP view in the intercondylar notch. There may be a trace amount of chondrocalcinosis. No acute fracture is identified. Impression: 1. Degenerative changes. No acute fracture. Query small intra-articular body as above. - Dictated By: Jacinta Correia M.D. Electronically Signed By: Jacinta Correia M.D. Date Signed: 01/12/08 JAW Procedure Note Jacinta Correia - 01/12/2008 Three views of the right knee are submitted. Osteoarthritic changes are noted. There is joint space narrowing withmedial sclerosis and marginal osteophyte formation. Less prominent osteoarthritic changes are noted inthe lateral knee joint and patellofemoral compartment. A probable small intra-articular body is notedin the knee joint best seen on the AP view in the intercondylar notch. There may be a trace amount ofchondrocalcinosis. No acute fracture is identified. Impression: 1. Degenerative changes. No acute fracture. Query small intra-articularbody as above. - Dictated By: Jacinta Correia M.D. Electronically Signed By: Jacinta Correia M.D. Date Signed: 01/12/08 JAW us Tim Kelsey MD DIAGNOSTIC IMAGING ORDERA BLES Final Result * (ABNORMAL) BASIC METABOLIC PANEL PLUS (01/12/2008 3:13 PM SHOP CLERK) AST 16 8 - 33 U/L [facility] ALBUMIN 4.1 3.5 - 5.0 g/dL [facility] ALT 11 4 - 36 IU/L [facility] ALKALINE PHOSPHATASE 98 25 - 100 U/L [facility] BILIRUBIN TOTAL 0.1(L) 0.3 - 1.2 mg/dL [facility] TOTAL PROTEIN 7.1 6.3 - 8.2 g/dL [facility] Blood specimen (specimen) 01/12/2008 3:13 PM SHOP CLERK 01/12/2008 3:17 PM SHOP CLERK Tim Kelsey MD CHEMISTRY ORDERABLES Chichi l Result Performing Organization Address [facility] Phone Number INTERFACE SYSTEM Refer to clinic/hospital department [facility] CLIA# [id number] [address] [place] [address] * C-REACTIVE PROTEIN (01/12/2008 3:13 PM SHOP CLERK) CRP 0.38 0.00 - 1.00 mg/dL [facility] Blood specimen (specimen) 01/12/2008 3:13 PM SHOP CLERK 01/12/2008 3:17 PM SHOP CLERK Result [facility] Tim Kelsey MD CHEMISTRY ORDERABLES Edit ed Performing Organization Address [facility] Phone Number INTERFACE SYSTEM Refer to clinic/hospital department [facility] CLIA# [id number] [address] [place] [address] * (ABNORMAL) SEDIMENTATION RATE (01/12/2008 3:13 PM SHOP CLERK) ESR (SEDIMENTATION RATE) 37(H) 0 - 22 mm/hr [facility] Blood specimen (specimen) 01/12/2008 3:13 PM SHOP CLERK 01/12/2008 3:17 PM SHOP CLERK Tim Kelsey MD HEMATOLOGY ORDERABLES Fin al Result Performing Organization Address [facility] Phone Number INTERFACE SYSTEM Refer to clinic/hospital department [facility] CLIA# [id number] [address] [place] [address] * (ABNORMAL) BASIC METABOLIC PANEL (01/12/2008 3:13 PM SHOP CLERK) Pathologist [facility] CO2 24 22 - 32 mmol/l [facility] OSMOLALITY, CALCULATED 288 275 - 295 mOsm/Kg [facility] POTASSIUM 4.0 3.5 - 5.0 mEq/L [facility] CREATININE 0.7 0.7 - 1.2 mg/dL [facility] CALCIUM 9.4 8.4 - 10.5 mg/dL [facility] GLUCOSE 98 70 - 110 mg/dL [facility] Comment: Slight Lipemia. CHLORIDE 111(H) 95 - 110 mEq/L [facility] SODIUM 140 136 - 145 mEq/L [facility] ANION GAP 9 9 - 20 mEq/L [facility] BUN 13 7 - 17 mg/dL [facility] Blood specimen (specimen) 01/12/2008 3:13 PM SHOP CLERK 01/12/2008 3:17 PM SHOP CLERK us Tim Kelsey MD CHEMISTRY ORDERABLES Chichi conley Result INTERFACE SYSTEM Refer to clinic/hospital department [facility] CLIA# [id number] [address] [place] [address] * (ABNORMAL) CBC WITH DIFFERENTIAL (01/12/2008 3:13 PM SHOP CLERK) Pathologist [facility] BASOPHILS ABSOLUTE 0.1 0.0 - 0.2 K/ul [facility] HEMOGLOBIN 13.2 12.0 - 16.0 g/dL [facility] MONOCYTES 7.1 2.0 - 10.0 % [facility] RDW 13.1 11.0 - 14.5 % [facility] MONOCYTE ABSOLUTE 0.7(H) 0.1 - 0.6 K/ul [facility] WBC 10.2 4.5 - 11.0 K/ul [facility] NEUTROPHILS 50.0 42.2 - 75.2 % [facility] MCH 30.8 27.0 - 34.0 pg [facility] NEUTROPHIL ABSOLUTE 5.1 2.0 - 8.0 K/ul [facility] HEMATOCRIT 39.1 36.0 - 46.0 % [facility] PLATELETS 171 140 - 440 K/ul [facility] EOSINOPHIL ABSOLUTE 0.5 0.0 - 0.7 K/ul [facility] EOSINOPHILS 4.7 0.0 - 7.0 % [facility] RBC 4.29 4.20 - 5.40 Mil/ul [facility] MCHC 33.8 30.0 - 35.0 g/dL [facility] LYMPHOCYTE ABSOLUTE 3.8 1.2 - 4.0 K/ul [facility] LYMPHOCYTES 37.7 24.0 - 44.0 % [facility] MCV 91.1 84.0 - 103.0 Fl [facility] BASOPHILS 0.5 0.0 - 1.0 % [facility] MPV 10.3 8.9 - 12.8 Fl [facility] Blood specimen (specimen) 01/12/2008 3:13 PM SHOP CLERK 01/12/2008 3:17 PM SHOP CLERK Tim Kelsey MD HEMATOLOGY ORDERABLES Fin al Result Performing Organization Address City/State/[facility] Co de Phone Number INTERFACE SYSTEM Refer to clinic/hospital department [facility]# [id number] [address] [place] [address] * (ABNORMAL) URINALYSIS (01/12/2008 3:00 PM SHOP CLERK) NITRITE UA NEGATIVE NEGATIVE [facility] UROBILINOGEN UA 0.2 0.2 [facility] CLARITY UA Clear Clear [facility] SPECIFIC GRAVITY UA >=1.030(A) <=1.005 [facility] GLUCOSE UA NEGATIVE NEGATIVE [facility] PH UA 5.5 5.0 - 9.0 [facility] BILIRUBIN UA NEGATIVE NEGATIVE [facility] LEUKOCYTE ESTERASE UA NEGATIVE NEGATIVE [facility] KETONES UA NEGATIVE NEGATIVE [facility] MICRO EXAM No No [facility] COLOR UA Yellow Straw [facility] PROTEIN UA NEGATIVE NEGATIVE [facility] BLOOD UA NEGATIVE NEGATIVE [facility] Urine specimen (specimen) 01/12/2008 3:00 PM SHOP CLERK 01/12/2008 3:00 PM SHOP CLERK us Tim Kelsey MD URINE ORDERABLES Final Re sult INTERFACE SYSTEM Refer to clinic/hospital department [facility] CLIA# [id number] [facility] [place] [address] documented in this encounter Visit Diagnoses Not on filedocumented in this encounter Care Teams Green Chain Off Bearer Relationship Specialty Start Date End Date Zack Gandara MD PCP - General Family Practice 01/23/19 03/19/19 documented as of this encounter
--- OUTSIDE RECORDS SUMMARY | 2024-08-24 19:09 | XMS_ITS | Encounter Summary ---
Author Organization [facility] Address [address] [place] [address] Care Team Providers Care Electrical Accessories I Assembler Name Role Phone Zack Gandara MD Primary Care Provider [phone] Encounter Details Date Type Department Care Team (Late st Contact Info) Description 03/30/2006 Emergency [facility] Emergency Department [address] [place] [phone] Harry Madera MD [address] [phone] Acute Upper Respiratory Infections of Unspecified Site (Primary Dx) Social History Tobacco Use Types Packs/Day Years Used Date Smoking Tobacco: Never Assessed Comments Unknown Sex and Gender Information Value Date Recorded Sex Assigned at Not on file Legal Sex Female 4:09 AM TEAMCENTER SOLUTION ARCHITECT Gender Identity Not on file Sexual Orientation Not on file documented as of this encounter Plan of Treatment Not on file documented as of this encounter Procedures Procedure Name Priority Date/Time Associated Diagnosis Comments CBC WITH DIFFERENTIAL Routine 03/30/2006 6:37 PM TEAMCENTER SOLUTION ARCHITECT BASIC METABOLIC PANEL Routine 03/30/2006 6:37 PM TEAMCENTER SOLUTION ARCHITECT documented in this encounter Results * (ABNORMAL) CBC WITH DIFFERENTIAL (03/30/2006 6:37 PM TEAMCENTER SOLUTION ARCHITECT) [facility] Emergency Department WBC 16.6(H) 4.5 - 11.0 K/ul INTERFACE SYSTEM RBC 4.84 4.20 - 5.40 Mil/ul INTERFACE SYSTEM HEMOGLOBIN 14.4 12.0 - 16.0 g/dL INTERFACE SYSTEM HEMATOCRIT 43.7 36.0 - 46.0 % INTERFACE SYSTEM MCV 90.3 84.0 - 103.0 Fl INTERFACE SYSTEM MCH 29.8 27.0 - 34.0 pg INTERFACE SYSTEM MCHC 33.0 30.0 - 35.0 g/dL INTERFACE SYSTEM RDW 13.0 11.0 - 14.5 % INTERFACE SYSTEM PLATELETS 248 140 - 440 K/ul INTERFACE SYSTEM MPV 10.7 8.9 - 12.8 Fl INTERFACE SYSTEM NEUTROPHILS 65.7 42.2 - 75.2 % INTERFACE SYSTEM LYMPHOCYTES 24.0 24.0 - 44.0 % INTERFACE SYSTEM MONOCYTES 6.9 2.0 - 10.0 % INTERFACE SYSTEM EOSINOPHILS 3.1 0.0 - 7.0 % INTERFACE SYSTEM BASOPHILS 0.3 0.0 - 1.0 % INTERFACE SYSTEM NEUTROPHIL ABSOLUTE 10.9(H) 2.0 - 8.0 K/uL INTERFACE SYSTEM LYMPHOCYTE ABSOLUTE 4.0 1.2 - 4.0 K/ul INTERFACE SYSTEM MONOCYTE ABSOLUTE 1.2(H) 0.1 - 0.6 K/ul INTERFACE SYSTEM EOSINOPHIL ABSOLUTE 0.5 0.0 - 0.7 K/ul INTERFACE SYSTEM BASOPHILS ABSOLUTE 0.1 0.0 - 0.2 K/ul INTERFACE SYSTEM 03/30/2006 6:37 PM TEAMCENTER SOLUTION ARCHITECT Harry Madera MD HEMATOLOGY ORDERABLES Edited INTERFACE SYSTEM Refer to clinic/hospital department * (ABNORMAL) BASIC METABOLIC PANEL (03/30/2006 6:37 PM TEAMCENTER SOLUTION ARCHITECT) Pathologist [facility] Emergency Department GLUCOSE 99 70 - 110 mg/dL INTERFACE SYSTEM BUN 6(L) 7 - 17 mg/dL INTERFACE SYSTEM CREATININE 0.5(L) 0.7 - 1.2 mg/dL INTERFACE SYSTEM SODIUM 140 136 - 145 mEq/L INTERFACE SYSTEM POTASSIUM 4.0 3.5 - 5.0 mEq/L INTERFACE SYSTEM Comment:Specimen slightly he molyzed CHLORIDE 110 95 - 110 mEq/L INTERFACE SYSTEM CO2 22 22 - 32 mmol/l INTERFACE SYSTEM CALCIUM 9.8 8.4 - 10.5 mg/dL INTERFACE SYSTEM ANION GAP 12 9 - 20 mEq/L INTERFACE SYSTEM OSMOLALITY, CALCULATED 285 275 - 295 mOsm/Kg INTERFACE SYSTEM 03/30/2006 6:37 PM TEAMCENTER SOLUTION ARCHITECT Harry Madera MD CHEMISTRY ORDERABLES Edited INTERFACE SYSTEM Refer to clinic/hospital department documented in this encounter Visit Diagnoses Diagnosis Acute upper respiratory infections of unspecified site- Primary documented in this encounter Care Teams Electrical Accessories I Assembler Relationship Specialty Start Date End Date Zack Gandara MD PCP - General Family Practice 01/23/19 03/19/19 documented as of this encounter
--- OUTSIDE RECORDS SUMMARY | 2024-08-24 19:09 | XMS_ITS | Encounter Summary ---
Author Organization [facility] Address [address] [place] [address] Care Team Providers Care Call Center Manager Name Role Phone Zack Gandara MD Primary Care Provider [phone] Encounter Details Date Type Department Care Team (Late st Contact Info) Description 03/21/2007 Outpatient Historical [facility] [address] [place] [phone] Eloy Lopez MD [address] [place] [address] Social History Tobacco Use Types Packs/Day Years Used Date Smoking Tobacco: Never Assessed Comments Unknown Sex and Gender Information Value Date Recorded Sex Assigned at Not on file Legal Sex Female 4:09 AM TAILERCPA Gender Identity Not on file Sexual Orientation Not on file documented as of this encounter Progress Notes * Eloy Lopez - 03/21/2007 12:00 AM CST Patient Name: Cyndi Baca DOS: 03/21/2007 : 1965 For additional information regarding past medical history, present medications, allergies, completereview of systems, past surgical history, family history and social history, please refer to the Orthopedic History form completed by the patient, which I have reviewed in detail this date. Cyndi Baca is a 41-year-old female who is status post a right knee arthroscopy on February 02, 2007 for medial meniscus tear. She had a partial medial meniscectomy and really found out that she hadsignificant chondromalacia in the trochlear groove in the patella. She had a pretty bad patellofemoral syndrome. She also has significant cartilage loss on the medial tibial plateau and the medial femoral condyle. Her major problem is just knee pain. She states that she has been having a little bitof problem with healing her portals. She has fallen again and hurt the knee. She is still worse with walking. She is down to 312 pounds currently. She was at 340 something pounds. She did weigh 500 pounds. She is kind of going the right direction. She attributes her most recent weight loss to the fact that she nearly lost her parents in a motor vehicle accident. She is getting both nonsteroidal and her pain medicine through her primary care physician. She denies any fevers, chills or sweats. PHYSICAL EXAMINATION: On physical examination today, the patient is well developed and well nourished and in no acute distress. The patient is alert and oriented x3. Patient has a good general appearance and normal mood and affect. The right knee has no effusion, warmth or erythema. She is very obese. It is difficult to get a good examination, but she is ligamentously stable. The portals show just a little red spot there. It looks like she may have spit the stitch or perhaps she is allergic to it but there is no gross infection. Range of motion is good at 0 to 125 degrees. Distally she is neurovascularly intact. ASSESSMENT: 1. Right knee pain. 2. 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 The lateral compartment looks pretty good. 3. Morbid obesity at 312 pounds in a 5 female. PLAN: I told her at age 41 that I really would not consider her a surgical candidate for a total knee arthroplasty. She should really focus significantly on weight loss and probably ought to continueto take her nonsteroidal and the pain medication from her primary care physician. It I were her I miguel also take glucosamine and chondroitin sulfate. This has been shown to be very efficacious with knee problems. It is inexpensive over the counter. She should be able to hopefully afford this. She will let me know of any side effects from the medication. We discussed a supervised weight loss program and possible surgical weight loss. I gave her [place] handouts for both of those entities. I will release her at this time. She will continue to followup with her primary care physician. If she should need steroid injections, I am sure that he can do this. If she needs any Hyalgan or Synvisc injections he can send her back to orthopedics and we would probably send her to one of our sports medicine physicians to consider proceeding with that. If she ended up needing a total knee arthroplasty, I would probably not be the one who would do this. A copy of this dictation has been sent to Dr. David Kim and Dr. Juancarlos Obrien. Eloy Lopez M.D. [facility] Electronically Signed by Eloy Lopez M.D. 03/28/2007 15:29 , P, 136 Job #: Document #: [id number] cc: Atul Rudd M.D. ERCPA documented in this encounter Plan of Treatment Not on file documented as of this encounter Visit Diagnoses Not on filedocumented in this encounter Care Teams Call Center Manager Relationship Specialty Start Date End Date Zack Gandara MD PCP - General Family Practice 01/23/19 03/19/19 documented as of this encounter
--- OUTSIDE RECORDS SUMMARY | 2024-08-24 19:09 | XMS_ITS | Encounter Summary ---
Author Organization [facility] Address [address] [place] [address] Care Team Providers Care Latin Professor Name Role Phone Zack Gandara MD Primary Care Provider [phone] Encounter Details Date Type Department Care Team (Latest Contact Info) Description 04/30/2008 Ancillary Orders [facility] [address] [place] [phone] Jacinta Faria FNP NO ADDRESS ON FILE Chronic Low Back Pain Social History Tobacco Use Types Packs/Day Years Used Date Smoking Tobacco: Every Day Cigarettes 1 15 Alcohol Use Standard Drinks/Week Comments No 0 (1 standard drink = 0.6 oz pur e alcohol) Comments No Sex and Gender Information Value Date Recorded Sex Assigned at Not on file Legal Sex Female 4:09 AM PILE OPERATOR Gender Identity Not on file Sexual Orientation Not on file documented as of this encounter Plan of Treatment Not on file documented as of this encounter Visit Diagnoses Diagnosis Chronic low back pain Lumbago documented in this encounter Care Teams Latin Professor Relationship Specialty Start Date End Date Zack Gandara MD PCP - General Family Practice 01/23/19 03/19/19 documented as of this encounter
--- OUTSIDE RECORDS SUMMARY | 2024-08-24 19:09 | XMS_ITS | Encounter Summary ---
Author Organization [facility] Address [address] [place] [address] Care Team Providers Care Manager Physical Name Role Phone Zack Gandara MD Primary Care Provider Encounter Details Date Type Department Care Team (Late st Contact Info) Description 09/16/2003 Emergency [facility] Emergency Department [address] [place] [phone] Walter Kumar MD NO ADDRESS ON FILE FOREIGN BODY GI NOS (Primary Dx) Social History Tobacco Use Types Packs/Day Years Used Date Smoking Tobacco: Never Assessed Comments Unknown Sex and Gender Information Value Date Recorded Sex Assigned at Not on file Legal Sex Female 4:09 AM SOCIAL SERVICES DESIGNEE Gender Identity Not on file Sexual Orientation Not on file documented as of this encounter Plan of Treatment Not on file documented as of this encounter Visit Diagnoses Diagnosis Foreign body in digestive system, unspecified- Primary documented in this encounter Care Teams Manager Physical Relationship Specialty Start Date End Date Zack Gandara MD PCP - General Family Practice 01/23/19 03/19/19 documented as of this encounter
--- OUTSIDE RECORDS SUMMARY | 2024-08-24 19:09 | XMS_ITS | Encounter Summary ---
Author Organization [facility] Address [address] [place] [address] Care Team Providers Care Patient Relations Manager Name Role Phone Zack Gandara MD Primary Care Provider Encounter Details Date Type Department Care Team (Late st Contact Info) Description 01/23/2010 Outpatient Historical [facility] [address] [place] [address] Carito Proctor MD [address] [place] [address] Conversion, History NO ADDRESS ON FILE Lumbago (Primary Dx); Other chronic pain; Diarrhea; Vomiting alone Social History Tobacco Use Types Packs/Day Years Used Date Smoking Tobacco: Every Day Cigarettes 1 15 Alcohol Use Standard Drinks/Week Comments No 0 (1 standard drink = 0.6 oz pur e alcohol) Comments No Sex and Gender Information Value Date Recorded Sex Assigned at Not on file Legal Sex Female 4:09 AM DRUG ENFORCEMENT ADMINISTRATION AGENT Gender Identity Not on file Sexual Orientation Not on file documented as of this encounter Plan of Treatment Not on file documented as of this encounter Visit Diagnoses Diagnosis Lumbago- Primary Other chronic pain Diarrhea Vomiting alone documented in this encounter Care Teams Patient Relations Manager Relationship Specialty Start Date End Date Zack Gandara MD PCP - General Family Practice 12/10/19 2/3/20 documented as of this encounter
--- OUTSIDE RECORDS SUMMARY | 2024-08-24 19:09 | XMS_ITS | Encounter Summary ---
Author Organization [facility] Address [address] [place] [address] Care Team Providers Care Workers Compensation Consultant Name Role Phone Zack Gandara MD Primary Care Provider Encounter Details Date Type Department Care Team (Latest Contact Info) Description 12/21/2000 Outpatient Historical [facility] [place] [address] [facility] [address] [place] [phone] Koki Birch MD NO ADDRESS ON FILE HEADACHE (Primary Dx) Social History Tobacco Use Types Packs/Day Years Used Date Smoking Tobacco: Never Assessed Comments Unknown Sex and Gender Information Value Date Recorded Sex Assigned at Not on file Legal Sex Female 4:09 AM BAND SINGER Gender Identity Not on file Sexual Orientation Not on file documented as of this encounter Plan of Treatment Not on file documented as of this encounter Visit Diagnoses Diagnosis Headache(784.0)- Primary Headache documented in this encounter Care Teams Workers Compensation Consultant Relationship Specialty Start Date End Date Zack Gandara MD PCP - General Family Practice 01/23/19 03/19/19 documented as of this encounter
--- OUTSIDE RECORDS SUMMARY | 2024-08-24 19:09 | XMS_ITS | Encounter Summary ---
Author Organization [facility] Address [address] [place] [address] Care Team Providers Care Stunt Double Name Role Phone Zack Gandara MD Primary Care Provider Encounter Details Date Type Department Care Team (Late st Contact Info) Description 10/07/2003 Emergency [facility] Emergency Department [address] [place] [phone] Michelle Hanna MD [address] [place] [phone] LUMBAGO (Primary Dx) Social History Tobacco Use Types Packs/Day Years Used Date Smoking Tobacco: Never Assessed Comments Unknown Sex and Gender Information Value Date Recorded Sex Assigned at Not on file Legal Sex Female 4:09 AM ADMINISTRATIVE HEARING OFFICER Gender Identity Not on file Sexual Orientation Not on file documented as of this encounter Plan of Treatment Not on file documented as of this encounter Visit Diagnoses Diagnosis Lumbago- Primary documented in this encounter Care Teams Stunt Double Relationship Specialty Start Date End Date Zack Gandara MD PCP - General Family Practice 01/23/19 03/19/19 documented as of this encounter
--- OUTSIDE RECORDS SUMMARY | 2024-08-24 19:09 | XMS_ITS | Encounter Summary ---
Author Organization [facility] Address [address] [place] [address] Care Team Providers Care Audiometrist Name Role Phone Zack Gandara MD Primary Care Provider Encounter Details Date Type Department Care Team (Late st Contact Info) Description 02/07/2008 Emergency [facility] Emergency Department [address] [place] [phone] Ed, Physician NO ADDRESS ON FILE Sabino Melgar MD [address] [place] [phone] Social History Tobacco Use Types Packs/Day Years Used Date Smoking Tobacco: Every Day Cigarettes 1 15 Alcohol Use Standard Drinks/Week Comments No 0 (1 standard drink = 0.6 oz pur e alcohol) Comments No Sex and Gender Information Value Date Recorded Sex Assigned at Not on file Legal Sex Female 4:09 AM TOOTH CUTTER SPUR Gender Identity Not on file Sexual Orientation Not on file documented as of this encounter Plan of Treatment Not on file documented as of this encounter Visit Diagnoses Not on filedocumented in this encounter Care Teams Audiometrist Relationship Specialty Start Date End Date Zack Gandara MD PCP - General Family Practice 01/23/19 03/19/19 documented as of this encounter
--- OUTSIDE RECORDS SUMMARY | 2024-08-24 19:09 | XMS_ITS | Encounter Summary ---
Author Organization [facility] Address [address] [place] [address] Care Team Providers Care Survey Questionnaire Designer Name Role Phone Zack Gandara MD Primary Care Provider Encounter Details Date Type Department Care Team (Latest Contact Info) Description 02/21/2003 Outpatient Historical [facility] [place] [address] [place] [phone] Tate Edwards MD [address] [place] [phone] OBESITY NOS (Primary Dx) Social History Tobacco Use Types Packs/Day Years Used Date Smoking Tobacco: Never Assessed Comments Unknown Sex and Gender Information Value Date Recorded Sex Assigned at Not on file Legal Sex Female 4:09 AM GUIDE FOREIGN TOUR Gender Identity Not on file Sexual Orientation Not on file documented as of this encounter Plan of Treatment Not on file documented as of this encounter Visit Diagnoses Diagnosis Obesity, unspecified- Primary documented in this encounter Care Teams Survey Questionnaire Designer Relationship Specialty Start Date End Date Zack Gandara MD PCP - General Family Practice 01/23/19 03/19/19 documented as of this encounter
--- OUTSIDE RECORDS SUMMARY | 2024-08-24 19:09 | XMS_ITS | Encounter Summary ---
Author Organization [facility] Address [address] [place] [address] Care Team Providers Care Returner Name Role Phone Zack Gandara MD Primary Care Provider Encounter Details Date Type Department Care Team (Late st Contact Info) Description 10/18/2007 Outpatient Historical [facility] [address] [place] [address] AMBULANCE, [facility] Social History Tobacco Use Types Packs/Day Years Used Date Smoking Tobacco: Never Assessed Comments Unknown Sex and Gender Information Value Date Recorded Sex Assigned at Not on file Legal Sex Female 4:09 AM PLUG SHAPER HAND Gender Identity Not on file Sexual Orientation Not on file documented as of this encounter Plan of Treatment Not on file documented as of this encounter Visit Diagnoses Not on filedocumented in this encounter Care Teams Returner Relationship Specialty Start Date End Date Zack Gandara MD PCP - General Family Practice 01/23/19 03/19/19 documented as of this encounter
--- OUTSIDE RECORDS SUMMARY | 2024-08-24 19:09 | XMS_ITS | Encounter Summary ---
Author Organization [facility] Address [address] [place] [address] Care Team Providers Care Surgical Coordinator Name Role Phone Zack Gandara MD Primary Care Provider Encounter Details Date Type Department Care Team (Late st Contact Info) Description 02/10/2008 Emergency [facility] Emergency Department [address] [place] [address] Ed, Physician NO ADDRESS ON FILE Taras Kaur, TIEING MACHINE OPERATOR [address] [place] [address] Other Chronic Pain; Bipolar Disorder, Unspecified (CMS/HCC); Tobacco Use Disorder; Other Acquired Absence of Organ; Personal History of Allergy to Penicillin; Personal History of Allergy to Sulfonamides; Personal History of Allergy to Other Anti-Infective Agent; Personal History of Allergy to Analgesic Agent Social History Tobacco Use Types Packs/Day Years Used Date Smoking Tobacco: Every Day Cigarettes 1 15 Alcohol Use Standard Drinks/Week Comments No 0 (1 standard drink = 0.6 oz pur e alcohol) Comments No Sex and Gender Information Value Date Recorded Sex Assigned at Not on file Legal Sex Female 4:09 AM PSYCH TECH Gender Identity Not on file Sexual Orientation Not on file documented as of this encounter Plan of Treatment Not on file documented as of this encounter Visit Diagnoses Diagnosis Other chronic pain Bipolar disorder, unspecified (CMS/HCC) Bipolar disorder, unspecified Tobacco use disorder Other acquired absence of organ Personal history of allergy to penicillin Personal history of allergy to sulfonamides Personal history of allergy to other anti-infective agent Personal history of allergy to analgesic agent documented in this encounter Care Teams Surgical Coordinator Relationship Specialty Start Date End Date Zack Gandara MD PCP - General Family Practice 01/23/19 03/19/19 documented as of this encounter
--- OUTSIDE RECORDS SUMMARY | 2024-08-24 19:09 | XMS_ITS | Encounter Summary ---
Author Organization [facility] Address [address] [place] [address] Care Team Providers Care Supervisor Bindery Name Role Phone Zack Gandara MD Primary Care Provider Encounter Details Date Type Department Care Team (Latest Contact Info) Description 08/09/2003 Outpatient Historical [facility]3] Family and International Medicine-[facility] [address] [place] [phone] Sabino Diaz MD [address] [place] [phone] LUMBAGO (Primary Dx); Skin sensation disturb Social History Tobacco Use Types Packs/Day Years Used Date Smoking Tobacco: Never Assessed Comments Unknown Sex and Gender Information Value Date Recorded Sex Assigned at Not on file Legal Sex Female 4:09 AM HUMAN RESOURCES PSYCHOLOGIST Gender Identity Not on file Sexual Orientation Not on file documented as of this encounter Plan of Treatment Not on file documented as of this encounter Visit Diagnoses Diagnosis Lumbago- Primary Skin sensation disturb Disturbance of skin sensation documented in this encounter Care Teams Supervisor Bindery Relationship Specialty Start Date End Date Zack Gandara MD PCP - General Family Practice 01/23/19 03/19/19 documented as of this encounter
--- OUTSIDE RECORDS SUMMARY | 2024-08-24 19:09 | XMS_ITS | Encounter Summary ---
Author Organization [facility] Address [address] [place] [address] Care Team Providers Care Theatrical Trouper Name Role Phone Zack Gandara MD Primary Care Provider [phone] Encounter Details Date Type Department Care Team (Late st Contact Info) Description 03/08/2007 Emergency [facility] Emergency Department [address] [place] [address] Ed, Physician NO ADDRESS ON FILE Rosaura Freeman NP NO ADDRESS ON FILE Lumbar Sprain and Strain; Encounter for Long-Term (Current) Use of Other Medications; Personal History of Allergy to Penicillin; Personal History of Allergy to Sulfonamides; Personal History of Allergy to Analgesic Agent; Personal History of Allergy to Other Specified Medicinal Agents; Fall from Other Slipping, Tripping, or Stumbling; Place of Occurrence, Home Social History Tobacco Use Types Packs/Day Years Used Date Smoking Tobacco: Never Assessed Comments Unknown Sex and Gender Information Value Date Recorded Sex Assigned at Not on file Legal Sex Female 4:09 AM EDUCATIONAL CONSULTANT Gender Identity Not on file Sexual Orientation Not on file documented as of this encounter Plan of Treatment Not on file documented as of this encounter Visit Diagnoses Diagnosis Sprain of lumbar region Encounter for long-term (current) use of other medications Personal history of allergy to penicillin Personal history of allergy to sulfonamides Personal history of allergy to analgesic agent Personal history of allergy to other specified medicinal agents Fall from other slipping, tripping, or stumbling Place of occurrence, home documented in this encounter Care Teams Theatrical Trouper Relationship Specialty Start Date End Date Zack Gandara MD PCP - General Family Practice 01/23/19 03/19/19 documented as of this encounter
--- OUTSIDE RECORDS SUMMARY | 2024-08-24 19:09 | XMS_ITS | Encounter Summary ---
Author Organization [facility] Address [address] [place] [address] Care Team Providers Care Art Psychotherapist Or Therapist Name Role Phone Zack Gandara MD Primary Care Provider Encounter Details Date Type Department Care Team (Latest Contact Info) Description 01/10/2007 Outpatient Historical [facility] Orthoped[facility]- [address] [place] [phone] Eloy Lopez MD [address] [place] [address] Pain in Joint, Lower Leg (Primary Dx); Primary Localized Osteoarthrosis, Lower Leg; Morbid Obesity (CMS/HCC) Social History Tobacco Use Types Packs/Day Years Used Date Smoking Tobacco: Never Assessed Comments Unknown Sex and Gender Information Value Date Recorded Sex Assigned at Not on file Legal Sex Female 4:09 AM AURICULOTHERAPIST Gender Identity Not on file Sexual Orientation Not on file documented as of this encounter Plan of Treatment Not on file documented as of this encounter Visit Diagnoses Diagnosis Pain in joint, lower leg- Primary Primary localized osteoarthrosis, lower leg Morbid obesity (CMS/HCC) Morbid obesity documented in this encounter Care Teams Art Psychotherapist Or Therapist Relationship Specialty Start Date End Date Zack Gandara MD PCP - General Family Practice 12/10/19 2/3/20 documented as of this encounter
--- OUTSIDE RECORDS SUMMARY | 2024-08-24 19:09 | XMS_ITS | Encounter Summary ---
Author Organization [facility] Address [address] [place] [address] Care Team Providers Care Central Office Mechanic Name Role Phone Zack Gandara MD Primary Care Provider Encounter Details Date Type Department Care Team (Late st Contact Info) Description 11/30/2006 Outpatient Historical [facility] [address] [place] [address] Social History Tobacco Use Types Packs/Day Years Used Date Smoking Tobacco: Never Assessed Comments Unknown Sex and Gender Information Value Date Recorded Sex Assigned at Not on file Legal Sex Female 4:09 AM ROOM SERVICE SERVER Gender Identity Not on file Sexual Orientation Not on file documented as of this encounter Plan of Treatment Not on file documented as of this encounter Visit Diagnoses Not on filedocumented in this encounter Care Teams Central Office Mechanic Relationship Specialty Start Date End Date Zack Gandara MD PCP - General Family Practice 01/23/19 03/19/19 documented as of this encounter
--- OUTSIDE RECORDS SUMMARY | 2024-08-24 19:09 | XMS_ITS | Encounter Summary ---
Author Organization [facility] Address [address] [place] [address] Care Team Providers Care Timber Framer Helper Name Role Phone Zack Gandara MD Primary Care Provider [phone] Encounter Details Date Type Department Care Team (Late st Contact Info) Description 04/18/2010 Outpatient Historical [facility] [address] [place] [address] Aleksander Goodson PA [address] [place] [address] Conversion, History NO ADDRESS ON FILE Lumbago (Primary Dx); Other chronic pain Social History Tobacco Use Types Packs/Day Years Used Date Smoking Tobacco: Every Day Cigarettes 1 15 Alcohol Use Standard Drinks/Week Comments No 0 (1 standard drink = 0.6 oz pur e alcohol) Comments No Sex and Gender Information Value Date Recorded Sex Assigned at Not on file Legal Sex Female 4:09 AM HOUSEMAID Gender Identity Not on file Sexual Orientation Not on file documented as of this encounter Plan of Treatment Not on file documented as of this encounter Visit Diagnoses Diagnosis Lumbago- Primary Other chronic pain documented in this encounter Care Teams Timber Framer Helper Relationship Specialty Start Date End Date Zack Gandara MD PCP - General Family Practice 01/23/19 03/19/19 documented as of this encounter
--- OUTSIDE RECORDS SUMMARY | 2024-08-24 19:09 | XMS_ITS | Encounter Summary ---
Author Organization [facility] Address [address] [place] [address] Care Team Providers Care Last Scourer Name Role Phone Zack Gandara MD Primary Care Provider [phone] Encounter Details Date Type Department Care Team (Late st Contact Info) Description 07/24/2003 Emergency [facility] Emergency Department [address] 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
--- OUTSIDE RECORDS SUMMARY | 2024-08-24 19:09 | XMS_ITS | Encounter Summary ---
Author Organization [facility] Address [address] [place] [address] Care Team Providers Care Inspector Raw Quartz Name Role Phone Zack Gandara MD Primary Care Provider [phone] Encounter Details Date Type Department Care Team (Late st Contact Info) Description 01/08/2007 Emergency [facility] Emergency Department [address] [place] [phone] Charley Downs FNP NO ADDRESS ON FILE Bronchitis, not Specified as Acute or Chronic (Primary Dx) Social History Tobacco Use Types Packs/Day Years Used Date Smoking Tobacco: Never Assessed Comments Unknown Sex and Gender Information Value Date Recorded Sex Assigned at Not on file Legal Sex Female 4:09 AM EMPLOYMENT TRAINER Gender Identity Not on file Sexual Orientation Not on file documented as of this encounter Plan of Treatment Not on file documented as of this encounter Visit Diagnoses Diagnosis Bronchitis, not specified as acute or chronic- Primary documented in this encounter Care Teams Inspector Raw Quartz Relationship Specialty Start Date End Date Zack Gandara MD PCP - General Family Practice 01/23/19 03/19/19 documented as of this encounter
--- OUTSIDE RECORDS SUMMARY | 2024-08-24 19:09 | XMS_ITS | Encounter Summary ---
Author Organization [facility] Address [address] [place] [address] Care Team Providers Care Death Clearance Coordinator Name Role Phone Zack Gandara MD Primary Care Provider Encounter Details Date Type Department Care Team (Late st Contact Info) Description 05/03/[address] [facility] MRI [address] [place] [address] Sabino Troncoso MD [address] [place] [address] Lumbago Social History Tobacco Use Types Packs/Day Years Used Date Smoking Tobacco: Every Day Cigarettes 1 15 Alcohol Use Standard Drinks/Week Comments No 0 (1 standard drink = 0.6 oz pur e alcohol) Comments No Sex and Gender Information Value Date Recorded Sex Assigned at Not on file Legal Sex Female 4:09 AM ORE TRIMMER Gender Identity Not on file Sexual Orientation Not on file documented as of this encounter Plan of Treatment Not on file documented as of this encounter Results * MRI LUMBAR WO CONTRAST (05/27/2008 12:27 PM CDT) Anatomical Region Laterality Modality Spine Magnetic Resonan ce, Other 05/27/2008 11:3 0 AM CDT Impressions 05/27/2008 1:31 PM CDT Impression: 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 No significant discogenic spinal stenosis or neural impingement. cgf: - uploaded from [employer] 05/27/2008 1:31 PM CDT Exam: MRI LUMBAR WO CONTRAST Date/Time of Exam: May 27, 2008 12:27:00 PM History: LUMBAGO. Technique: Multiplanar, multisequence MR images were obtained through the lumbar spine without contrast. Lumbar alignment is grossly normal. Mild age-appropriate disc degeneration present manifest as desiccation with loss of disc space height and low-grade annular bulging over the mid and distal levels. No focal disc herniation or neural impingement. Central canal and neural foramina are grossly patent. Chronic Schmorl's node anterosuperior endplate L5. Small hemangiomata and/or focal fatty rests over the distal segments. No compression fracture. Conus normal. Axial images confirm the absence of any significant spinal stenosis. There is a small broad-based disc protrusion and annular tear at L5-S1 which does not appear significant. Procedure Note Niraj Siddiqui, - 05/27/2008 Exam: MRI LUMBAR WO CONTRAST Date/Time of Exam: May 27, 2008 12:27:00 PM History: LUMBAGO. Technique: Multiplanar, multisequence MR images were obtained through thelumbar spine without contrast. Lumbar alignment is grossly normal. Mild age-appropriate disc degenerationpresent manifest as desiccation with loss of disc space height and low-grade annular bulgingover the mid and distal levels. No focal disc herniation or neural impingement. Central canal and neuralforamina are grossly patent. Chronic Schmorl's node anterosuperior endplate L5. Small hemangiomataand/or focal fatty rests over the distal segments. No compression fracture. Conus normal. Axial imagesconfirm the absence of any significant spinal stenosis. There is a small broad-based disc protrusionand annular tear at L5-S1 which does not appear significant. 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 No significantdiscogenic spinal stenosis or neural impingement. cgf: - uploaded from [employer] Sabino Troncoso MD MR ORDERABLES Final Res ult documented in this encounter Visit Diagnoses Diagnosis Lumbago Lumbago documented in this encounter Care Teams Death Clearance Coordinator Relationship Specialty Start Date End Date Zack Gandara MD PCP - General Family Practice 01/23/19 03/19/19 documented as of this encounter
--- OUTSIDE RECORDS SUMMARY | 2024-08-24 19:09 | XMS_ITS | Encounter Summary ---
Author Organization [facility] Address [address] [place] [address] Care Team Providers Care Mangle Feeder Name Role Phone Zack Gandara MD Primary Care Provider [phone] Encounter Details Date Type Department Care Team (Late st Contact Info) Description 02/18/2010 Outpatient Historical [facility] [address] [place] [address] [facility] [place] [address] [place] [address] [place] [id number] Conversion, History NO ADDRESS ON FILE Unspecified backache (Primary Dx); Other chronic pain; Nausea alone; Vomiting alone Social History Tobacco Use Types Packs/Day Years Used Date Smoking Tobacco: Every Day Cigarettes 1 15 Alcohol Use Standard Drinks/Week Comments No 0 (1 standard drink = 0.6 oz pur e alcohol) Comments No Sex and Gender Information Value Date Recorded Sex Assigned at Not on file Legal Sex Female 4:09 AM SOLE SKIVER Gender Identity Not on file Sexual Orientation Not on file documented as of this encounter Plan of Treatment Not on file documented as of this encounter Visit Diagnoses Diagnosis Backache, unspecified- Primary Other chronic pain Nausea alone Vomiting alone documented in this encounter Care Teams Mangle Feeder Relationship Specialty Start Date End Date Zack Gandara MD PCP - General Family Practice 01/23/19 03/19/19 documented as of this encounter
--- OUTSIDE RECORDS SUMMARY | 2024-08-24 19:09 | XMS_ITS | Encounter Summary ---
Author Organization [facility] Address [address] [place] [address] Care Team Providers Care Precast Worker Name Role Phone Zack Gandara MD Primary Care Provider Encounter Details Date Type Department Care Team (Latest Contact Info) Description 01/02/2004 Outpatient Historical [facility] Internal Medicine and Pediatrics-[address] [place] [address] Karina Garibay MD NO ADDRESS ON FILE SCIATICA (Primary Dx); MORBID OBESITY (CMS/HCC); CLASS MIGRAIN W/O MENTN INTRACTABLE; HYPERTENSION NOS Social History Tobacco Use Types Packs/Day Years Used Date Smoking Tobacco: Never Assessed Comments Unknown Sex and Gender Information Value Date Recorded Sex Assigned at Not on file Legal Sex Female 4:09 AM FEATHER BONER Gender Identity Not on file Sexual Orientation Not on file documented as of this encounter Plan of Treatment Not on file documented as of this encounter Visit Diagnoses Diagnosis Sciatica- Primary Morbid obesity (CMS/HCC) Morbid obesity Migraine with aura, without mention of intractable migraine without mention of status migrainosus Unspecified essential hypertension documented in this encounter Care Teams Precast Worker Relationship Specialty Start Date End Date Zack Gandara MD PCP - General Family Practice 01/23/19 03/19/19 documented as of this encounter
--- OUTSIDE RECORDS SUMMARY | 2024-08-24 19:09 | XMS_ITS | Encounter Summary ---
Author Organization [facility] Address [address] [place] [address] Care Team Providers Care Metalsmith Apprentice Name Role Phone Zack Gandara MD Primary Care Provider Encounter Details Date Type Department Care Team (Late st Contact Info) Description 01/02/2003 Emergency [facility] Emergency Department [address] [place] [phone] Walter Kumar MD NO ADDRESS ON FILE LUMBAGO (Primary Dx) Social History Tobacco Use Types Packs/Day Years Used Date Smoking Tobacco: Never Assessed Comments Unknown Sex and Gender Information Value Date Recorded Sex Assigned at Not on file Legal Sex Female 4:09 AM INVENTORY CONTROL ASSISTANT Gender Identity Not on file Sexual Orientation Not on file documented as of this encounter Plan of Treatment Not on file documented as of this encounter Visit Diagnoses Diagnosis Lumbago- Primary documented in this encounter Care Teams Metalsmith Apprentice Relationship Specialty Start Date End Date Zack Gandara MD PCP - General Family Practice 01/23/19 03/19/19 documented as of this encounter
--- OUTSIDE RECORDS SUMMARY | 2024-08-24 19:09 | XMS_ITS | Encounter Summary ---
Author Organization [facility] Address [address] [place] [address] Care Team Providers Care Special Education Curriculum Specialist Name Role Phone Zack Gandara MD Primary Care Provider Encounter Details Date Type Department Care Team (Latest Contact Info) Description 01/12/2007 Outpatient Historical [facility] Operating Room [address] [place] [address] Eloy Lopez MD [address] [place] [address] Morbid Obesity (CMS/HCC); Primary Localized Osteoarthrosis, Lower Leg; Personal History of Allergy to Sulfonamides; Procedure not Carried Out for Other Reasons Social History Tobacco Use Types Packs/Day Years Used Date Smoking Tobacco: Never Assessed Comments Unknown Sex and Gender Information Value Date Recorded Sex Assigned at Not on file Legal Sex Female 4:09 AM CLINICAL LAW PROFESSOR Gender Identity Not on file Sexual Orientation Not on file documented as of this encounter Plan of Treatment Not on file documented as of this encounter Visit Diagnoses Diagnosis Morbid obesity (CMS/HCC) Morbid obesity Primary localized osteoarthrosis, lower leg Personal history of allergy to sulfonamides Procedure not carried out for other reasons documented in this encounter Care Teams Special Education Curriculum Specialist Relationship Specialty Start Date End Date Zack Gandara MD PCP - General Family Practice 01/23/19 03/19/19 documented as of this encounter
--- OUTSIDE RECORDS SUMMARY | 2024-08-24 19:09 | XMS_ITS | Encounter Summary ---
Author Organization [facility] Address [address] [place] [address] Care Team Providers Care Slot Operations Director Name Role Phone Zack Gandara MD Primary Care Provider [phone] Encounter Details Date Type Department Care Team (Late st Contact Info) Description 12/14/2007 Emergency [facility] Emergency Department [address] [place] [phone] Ed, Physician NO ADDRESS ON FILE Vinicio Pacheco DO NO ADDRESS ON FILE Social History Tobacco Use Types Packs/Day Years Used Date Smoking Tobacco: Every Day Cigarettes 1 15 Alcohol Use Standard Drinks/Week Comments No 0 (1 standard drink = 0.6 oz pur e alcohol) Comments No Sex and Gender Information Value Date Recorded Sex Assigned at Not on file Legal Sex Female 4:09 AM EDGE STAINER Gender Identity Not on file Sexual Orientation Not on file documented as of this encounter Plan of Treatment Not on file documented as of this encounter Visit Diagnoses Not on filedocumented in this encounter Care Teams Slot Operations Director Relationship Specialty Start Date End Date Zack Gandara MD PCP - General Family Practice 01/23/19 03/19/19 documented as of this encounter
--- OUTSIDE RECORDS SUMMARY | 2024-08-24 19:09 | XMS_ITS | Encounter Summary ---
Author Organization [facility] Address [address] [place] [address] Care Team Providers Care Single Spindle Screw Machine Operator Name Role Phone Zack Gandara MD Primary Care Provider Encounter Details Date Type Department Care Team (Late st Contact Info) Description 11/11/2006 Emergency [facility] Emergency Department [address] [place] [address] Taras Kaur, CLAIM CLERK [address] [place] [address] Sprain and Strain of Unspecified Site of Knee and Leg (Primary Dx) Social History Tobacco Use Types Packs/Day Years Used Date Smoking Tobacco: Never Assessed Comments Unknown Sex and Gender Information Value Date Recorded Sex Assigned at Not on file Legal Sex Female 4:09 AM RETAIL SALES VITAMIN CONSULTANT Gender Identity Not on file Sexual Orientation Not on file documented as of this encounter Plan of Treatment Not on file documented as of this encounter Procedures Procedure Name Priority Date/Time Associated Diagnosis Comments XR KNEE 1 OR 2 VW RIGHT Routine 11/11/2006 3:21 PM CDT documented in this encounter Results * XR KNEE 1 OR 2 VW RIGHT (11/11/2006 3:21 PM CDT) Anatomical Region Laterality Modality Lower Extremity Other 11/11/2006 3:21 PM CDT Narrative 11/11/2006 3:21 PM CDT Date: 11/11/06History: Injury. Findings: Multiple projections were obtained of the right ankle and right knee. No comparisons. There is no definite fracture or dislocation regarding the right knee. There is no knee jointeffusion. There is no significant soft tissue swelling. There is no significant osteoarthritis. There is no definite fracture or dislocation regarding the right ankle. There may be some minimal softtissue swelling laterally. The ankle mortise appears intact. There is a small plantar calcanealenthesophyte. There is no definite ankle joint effusion. Summary: 1. No definite fracture or dislocation of the right ankle or the right knee. 2. Small plantar calcaneal enthesophyte. 3. Possible minimal soft tissue swelling regarding the lateral aspect of the right ankle. - Dictated By: Daniel Trinidad Jr., M.D. Electronically Signed By: Daniel Trinidad Jr., M.D.MD Date Signed: 11/12/06 AMA Procedure Note 01/05/2009 Date: 11/11/06History: Injury. Findings: Multiple projections were obtained of the right ankle and right knee. Nocomparisons. There is no definite fracture or dislocation regarding the right knee.There is no knee jointeffusion. There is no significant soft tissue swelling. There is no significantosteoarthritis. There is no definite fracture or dislocation regarding the right ankle.There may be some minimal softtissue swelling laterally. The ankle mortise appears intact. There daniel small plantar calcanealenthesophyte. There is no definite ankle joint effusion. Summary: 1. No definite fracture or dislocation of the right ankle or the rightknee. 2. Small plantar calcaneal enthesophyte. 3. Possible minimal soft tissue swelling regarding the lateral aspect ofthe right ankle. - Dictated By: Daniel Trinidad Jr., M.D. Electronically Signed By: Daniel Trinidad Jr., M.D.MD Date Signed: 11/12/06 AMA Taras Kaur CLAIM CLERK DIAGNOSTIC IMAGING ORDERABLES Final Result documented in this encounter Visit Diagnoses Diagnosis Sprain and strain of unspecified site of knee and leg- Primary documented in this encounter Care Teams Single Spindle Screw Machine Operator Relationship Specialty Start Date End Date Zack Gandara MD PCP - General Family Practice 01/23/19 03/19/19 documented as of this encounter
--- OUTSIDE RECORDS SUMMARY | 2024-08-24 19:09 | XMS_ITS | Encounter Summary ---
Author Organization [facility] Address [address] [place] [address] Care Team Providers Care Voice Data Communications Engineer Name Role Phone Zack Gandara MD Primary Care Provider Encounter Details Date Type Department Care Team (Late st Contact Info) Description 01/08/2007 Outpatient Historical [facility] [address] [place] [address] AMBULANCE, [facility] Social History Tobacco Use Types Packs/Day Years Used Date Smoking Tobacco: Never Assessed Comments Unknown Sex and Gender Information Value Date Recorded Sex Assigned at Not on file Legal Sex Female 4:09 AM SENIOR MECHANICAL ESTIMATOR Gender Identity Not on file Sexual Orientation Not on file documented as of this encounter Plan of Treatment Not on file documented as of this encounter Visit Diagnoses Not on filedocumented in this encounter Care Teams Voice Data Communications Engineer Relationship Specialty Start Date End Date Zack Gandara MD PCP - General Family Practice 01/23/19 03/19/19 documented as of this encounter
--- OUTSIDE RECORDS SUMMARY | 2024-08-24 19:09 | XMS_ITS | Encounter Summary ---
Author Organization [facility] Address [address] [place] [address] Care Team Providers Care Cfo Name Role Phone Zack Gandara MD Primary Care Provider Encounter Details Date Type Department Care Team (Late st Contact Info) Description 02/21/2007 Outpatient Historical [facility]oped[facility]- [address] [place] [phone] Eloy Lopez MD [address] [place] [address] Social History Tobacco Use Types Packs/Day Years Used Date Smoking Tobacco: Never Assessed Comments Unknown Sex and Gender Information Value Date Recorded Sex Assigned at Not on file Legal Sex Female 4:09 AM CLOUD ADMINISTRATOR Gender Identity Not on file Sexual Orientation Not on file documented as of this encounter Plan of Treatment Not on file documented as of this encounter Visit Diagnoses Not on filedocumented in this encounter Care Teams Cfo Relationship Specialty Start Date End Date Zack Gandara MD PCP - General Family Practice 01/23/19 03/19/19 documented as of this encounter
--- OUTSIDE RECORDS SUMMARY | 2024-08-24 19:09 | XMS_ITS | Encounter Summary ---
Author Organization [facility] Address [address] [place] [address] Care Team Providers Care Chef French Name Role Phone Zack Gandara MD Primary Care Provider Encounter Details Date Type Department Care Team (Late st Contact Info) Description 01/05/2007 Emergency [facility] Emergency Department [address] [place] [phone] Janel Fields, [facility] [address] [place] [phone] Acute Bronchitis (Primary Dx) Social History Tobacco Use Types Packs/Day Years Used Date Smoking Tobacco: Never Assessed Comments Unknown Sex and Gender Information Value Date Recorded Sex Assigned at Not on file Legal Sex Female 4:09 AM FILM PRODUCER Gender Identity Not on file Sexual Orientation Not on file documented as of this encounter Plan of Treatment Not on file documented as of this encounter Visit Diagnoses Diagnosis Acute bronchitis- Primary documented in this encounter Care Teams Chef French Relationship Specialty Start Date End Date Zack Gandara MD PCP - General Family Practice 01/23/19 03/19/19 documented as of this encounter
--- OUTSIDE RECORDS SUMMARY | 2024-08-24 19:09 | XMS_ITS | Encounter Summary ---
Author Organization [facility] Address [address] [place] [address] Care Team Providers Care Gas Specialist Name Role Phone Zack Gandara MD Primary Care Provider Encounter Details Date Type Department Care Team (Latest Contact Info) Description 02/21/2003 Outpatient Historical [facility] [address] [place] [phone] Tate Edwards MD [address] [place] [phone] LUMBAGO (Primary Dx); SCIATICA; OBESITY NOS Social History Tobacco Use Types Packs/Day Years Used Date Smoking Tobacco: Never Assessed Comments Unknown Sex and Gender Information Value Date Recorded Sex Assigned at Not on file Legal Sex Female 4:09 AM DOG LICENSE OFFICER SUPERVISOR Gender Identity Not on file Sexual Orientation Not on file documented as of this encounter Plan of Treatment Not on file documented as of this encounter Visit Diagnoses Diagnosis Lumbago- Primary Sciatica Obesity, unspecified documented in this encounter Care Teams Gas Specialist Relationship Specialty Start Date End Date Zack Gandara MD PCP - General Family Practice 01/23/19 03/19/19 documented as of this encounter
--- OUTSIDE RECORDS SUMMARY | 2024-08-24 19:09 | XMS_ITS | Encounter Summary ---
Author Organization [facility] Address [address] [place] [address] Care Team Providers Care Field Horticultural Specialty Grower Name Role Phone Zack Gandara MD Primary Care Provider Encounter Details Date Type Department Care Team (Late st Contact Info) Description 12/29/2006 Outpatient Historical [facility] [place] [address] [place] [address] Social History Tobacco Use Types Packs/Day Years Used Date Smoking Tobacco: Never Assessed Comments Unknown Sex and Gender Information Value Date Recorded Sex Assigned at Not on file Legal Sex Female 4:09 AM INSPECTOR QUALITY ASSURANCE Gender Identity Not on file Sexual Orientation Not on file documented as of this encounter Plan of Treatment Not on file documented as of this encounter Visit Diagnoses Not on filedocumented in this encounter Care Teams Field Horticultural Specialty Grower Relationship Specialty Start Date End Date Zack Gandara MD PCP - General Family Practice 01/23/19 03/19/19 documented as of this encounter
--- OUTSIDE RECORDS SUMMARY | 2024-08-24 19:09 | XMS_ITS | Encounter Summary ---
Author Organization [facility] Address [address] [place] [address] Care Team Providers Care Branch Specialist Name Role Phone Zack Gandara MD Primary Care Provider [phone] Encounter Details Date Type Department Care Team (Latest Contact Info) Description 12/17/2005 Outpatient Historical [facility] Family Medicine [address] [place] [address] Juancarlos Obrien MD NO ADDRESS ON FILE Pain in Joint, Pelvic Region and Thigh (Primary Dx) Social History Tobacco Use Types Packs/Day Years Used Date Smoking Tobacco: Never Assessed Comments Unknown Sex and Gender Information Value Date Recorded Sex Assigned at Not on file 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
--- OUTSIDE RECORDS SUMMARY | 2024-08-24 19:09 | XMS_ITS | Clinical Summary ---
Author Organization [facility] Address [address] [place] [address] Phone Care Team Providers Care Rubber Trimmer Name Role Phone Unavailable Primary Care Provider Unavailabl e Allergies Active Allergy Reactions Criticality Noted Date Comments Ceftriaxone Hives High 09/17/2017 Ibuprofen Nausea and Vomiting Low 08/28/2010 Ketorolac Tromethamine Anaphylaxis,Hives High 2007 Lidocaine Rash Low Penicillins Hives High 12/06/2007 Prochlorperazine Edisylate Itching High 1 Propoxyphene N-Acetaminophen Nausea and Vomiting Low 05/20/2009 Sulfa (Sulfonamide Antibiotics) Hives High 11/09/2009 Tetracycline Hives High 12/06/2007 Tramadol Anaphylaxis,Hives High 12/06/2007 Medications lisinopril (PRINIVIL) 40 mg tablet Take 1 Tablet (40 mg) by mouth daily. 90 Tablet 9 Active fluticasone propion-salmete rol (Advair Diskus) 100-50 mcg/dose disk inhaler Take 1 Puff by inhalation 2 times daily. 1 Inhaler 2 9 Active albuterol HFA 90 mcg inhaler Take 2 Puffs by inhalation every 4 hours as needed for Shortness of Breath or Wheezing. 18 Gram 2 9 Active atorvastatin (LIPITOR) 40 mg tablet Take 1 Tablet (40 mg) by mouth daily with supper. 90 Tablet 9 Active CHANTIX 1 mg Tablet TAKE ONE TABLET BY MOUTH TWICE DAILY 60 Tablet 1 0 Active promethazine (PHENERGAN) 25 mg tablet Take 1 Tablet (25 mg) by mouth every 6 hours as needed for Nausea. 12 Tablet 3 0 Active hydrOXYzine HCl (ATARAX) 25 mg tablet Take 1 Tablet (25 mg) by mouth every 8 hours as needed for Itching. 90 Tablet 1 0 Active QUEtiapine (SEROquel XR) 150 mg Extended Release 24 hour tablet TAKE ONE TABLET BY MOUTH LATE IN THE DAY 90 Tablet 0 Active cloNIDine HCL (CATAPRES) 0.2 mg tablet TAKE ONE TABLET BY MOUTH THREE TIMES DAILY 90 Tablet 0 Active tiZANidine (ZANAFLEX) 4 mg Tablet TAKE ONE TABLET BY MOUTH EVERY 8 HOURS NEEDED FOR SPASM 90 Tablet 0 Active gabapentin (NEURONTIN) 600 mg tablet TAKE ONE TABLET BY MOUTH TWICE DAILY 60 Tablet 0 Active lamoTRIgine (LaMICtal) 200 mg tablet TAKE ONE TABLET BY MOUTH DAILY 30 Tablet 0 Active Active Problems Problem Noted Date Diagnosed Date Cellulitis/abscess of abdominal wall 12/22/2018 Ventral hernia without obstr uction or gangrene on CT Dec 2018 12/22/2018 Vaginal irritation 09/20/2017 E. coli pyelonephritis 09/19/2017 DJD (degenerative joint disease) of hip 04/06/19 15 Right shoulder pain 03/11/2014 Right knee pain 03/11/2014 TMJ (temporomandibular joint syndrome) 5 Opiate withdrawal with vomiting 03/10/2014 Bleeding hemorrhoid 03/10/2014 Hepatic steatosis 03/10/2014 Heartburn 03/10/2014 Hot flash 05/20/2009 Depressive disorder 05/20/2009 DJD (degenerative joint disease) of knee 010 Migraines 04/22/2009 Morbid obesity 04/22/2009 DJD (degenerative joint disease), lumbar 010 Chronic low back pain 04/22/2009 Depression 04/22/2009 KANDY (generalized anxiety disorder) 04/22/2009 Bipolar 2 disorder 04/22/2009 Resolved Problems Problem Noted Date Diagnosed Date Resolved Date Vomiting 03/10/2014 09/19/2017 UTI (urinary tract infection) 03/10/2014 09/19/2017 COPD exacerbation 05/20/2009 05/20/2009 IBS (irritable bowel syndrome) 04/22/2009 09/19/2017 Immunizations Immunization Administration Dates Next Due (ADACEL/BOOSTRIX)(10 [...] Date Smoking Tobacco: Every Day Cigarettes 1 29 Smokeless Tobacco: Never Tobacco Cessation:Ready to Q uit: Yes; Counseling Given: Yes Comments:smoking since age 28; trying to quit with [...] on file 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 Gender Identity Not on file Sexual Orientation Not on file Occupation Industry Job Start Date Job End Date Not on file Not on file Not on file Not on file Not on file Not on file Not on file Not on file Last Filed Vital Signs Vital Sign Reading Time Taken Comments Blood Pressure 149/89 04/24/2019 5:22 PM CDT Pulse 107 01/23/2019 1:33 PM CLAY 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 SETTER Temperature 35.5 C (95.9 F) 04/24/2019 3:13 PM CDT Respiratory Rate 18 04/24/2019 5:22 PM CDT Oxygen Saturation 96% 04/24/2019 5:22 PM CDT Inhaled Oxygen Concentration - - Weight 153.1 kg (337 lb 9.6 oz) 04/24/2019 3:13 PM CDT Height 180.3 cm (5' 11 ) 04/24/2019 3:13 PM CDT Body Mass Index 47.09 04/24/2019 3:13 PM CDT Plan of Treatment Health Maintenance Due Date Last Done Comments Pre-Diabetes and Diabetes Screening 1965 HEPATITIS B VACCINES (1 of 3 - 19+ 3-dose series) 11/09/1983 HPV/Cotest (21-29) 1985 HPV/Cotest (30-65) 1994 BREAST CANCER SCREENING 2004 CERVICAL CANCER SCREENING 07/05/2008 PAP SMEAR 07/05/2008 07/05/2005 FIT-DNA Q 3 years 2009 FIT/FOBT Q 1 year 2009 Flex Sig/CT Colonography Q 5 years 2009 ZOSTER VACCINE (1 of 2) 2014 COLORECTAL SCREENING 07/05/2017 07/06/2007 Colorectal Cancer Screening 07/05/2017 DTAP/TDAP/TD VACCINES (2 - T d or Tdap) 07/28/2021 07/29/2011, 05/27/2002 INFLUENZA VACCINE (#1) 2024 9, 2013, 12/20/1995 Procedures Procedure Name Priority Date/Time Associated Diagnosis Comments ENDOSCOPY, COLON, DIAGNOSTIC Routine 07/06/2007 from Last 3 Months or Most Recently Relevant to Health Maintenance Results * ENDOSCOPY, COLON, DIAGNOSTIC (07/06/2007) Kirill Kinney MD GI PROCEDURE ORDERABLES Final Result from Last 3 Months or Most Recently Relevant to Health Maintenance Insurance MEDICAID [place] Advance Directives For more information, please contact: [phone] * Full Code (Latest Code Status on File) Date Activated Date Inactivated Comments 09/18/2017 11:41 PM 09/21/2017 7:58 PM * Full Code Date Activated Date Inactivated Comments 03/10/2014 6:52 PM 03/11/2014 5:18 PM * Full Code Date Activated Date Inactivated Comments 03/10/2014 4:41 AM 03/10/2014 6:52 PM
--- OUTSIDE RECORDS SUMMARY | 2024-08-24 19:09 | XMS_ITS | Encounter Summary ---
Author Organization [facility] Address [address] [place] [address] Care Team Providers Care Brick Mason Name Role Phone Zack Gandara MD Primary Care Provider [phone] Encounter Details Date Type Department Care Team (Latest Contact Info) Description 02/02/2010 Outpatient Historical [facility] [address] 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
--- OUTSIDE RECORDS SUMMARY | 2024-08-24 19:09 | XMS_ITS | Encounter Summary ---
Author Organization [facility] Address [address] [place] [address] Care Team Providers Care Food Quality Technician Name Role Phone Zack Gandara MD Primary Care Provider [phone] Encounter Details Date Type Department Care Team (Latest Contact Info) Description 02/02/2007 Outpatient Historical [facility] Operating Room [address] [place] [phone] Eloy Lopez MD [address] [place] [address] Chondromalacia of Patella; Plica Syndrome; Chronic Pain Syndrome; Headache; Anxiety State, Unspecified; Tobacco Use Disorder; Morbid Obesity (CMS/[facility]); Obstructive Sleep Apnea (Adult) (Pediatric); Bipolar Disorder, Unspecified (CMS/[facility]); Personal History of Allergy to Analgesic Agent; Personal History of Allergy to Penicillin; Personal History of Allergy to Sulfonamides; Personal History of Allergy to Other Specified Medicinal Agents Social History Tobacco Use Types Packs/Day Years Used Date Smoking Tobacco: Never Assessed Comments Unknown Sex and Gender Information Value Date Recorded Sex Assigned at Not on file 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 Gender Identity Not on file Sexual Orientation Not on file documented as of this encounter Plan of Treatment Not on file documented as of this encounter Visit Diagnoses Diagnosis Chondromalacia of patella Plica syndrome Chronic pain syndrome Headache(784.0) Headache Anxiety state, unspecified Tobacco use disorder Morbid obesity (CMS/[facility]) Morbid obesity Obstructive sleep apnea (adult) (pediatric) Bipolar disorder, unspecified (CMS/[facility]) Bipolar disorder, unspecified Personal history of allergy to analgesic agent Personal history of allergy to penicillin Personal history of allergy to sulfonamides Personal history of allergy to other specified medicinal agents documented in this encounter Care Teams Food Quality Technician Relationship Specialty Start Date End Date Zack Gandara MD PCP - General Family Practice 01/23/19 03/19/19 documented as of this encounter
--- OUTSIDE RECORDS SUMMARY | 2024-08-24 19:09 | XMS_ITS | Encounter Summary ---
Author Organization [facility] Address [address] [place] [address] Care Team Providers Care Opal Polisher Name Role Phone Zack Gandara MD Primary Care Provider [phone] Encounter Details Date Type Department Care Team (Late st Contact Info) Description 12/26/2003 Emergency [facility] Emergency Department [address] 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
--- OUTSIDE RECORDS SUMMARY | 2024-08-24 19:09 | XMS_ITS | Encounter Summary ---
Author Organization [facility] Address [address] [place] [address] Care Team Providers Care Shirring Tender Name Role Phone Zack Gandara MD Primary Care Provider Encounter Details Date Type Department Care Team (Late st Contact Info) Description 01/09/2008 Emergency [facility] Emergency Department [address] 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
--- OUTSIDE RECORDS SUMMARY | 2024-08-24 19:09 | XMS_ITS | Encounter Summary ---
Author Organization [facility] Address [address] [place] [address] Care Team Providers Care Curator Of Education Name Role Phone Zack Gandara MD Primary Care Provider Encounter Details Date Type Department Care Team (Late st Contact Info) Description 07/07/2006 Outpatient Historical [facility] [address] 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
--- OUTSIDE RECORDS SUMMARY | 2024-08-24 19:09 | XMS_ITS | Encounter Summary ---
Author Organization [facility] Address [address] [place] [address] Care Team Providers Care Fur Mixer Operator Name Role Phone Zack Gandara MD Primary Care Provider Encounter Details Date Type Department Care Team (Late st Contact Info) Description 02/23/2008 Emergency [facility] Emergency Department [address] 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 Gender Identity Not on file Sexual Orientation Not on file documented as of this encounter Plan of Treatment Not on file documented as of this encounter Procedures Procedure Name Priority Date/Time Associated Diagnosis Comments XR LUMBAR SPINE 2 OR 3 VW Routine 02/23/2008 5:48 PM SIDE TRIMMER XR CERVICAL SPINE 2 OR 3 VIEWS Routine 02/23/2008 5:48 PM SIDE TRIMMER documented in this encounter Results * XR LUMBAR SPINE 2 OR 3 VW (02/23/2008 5:48 PM SIDE TRIMMER) Anatomical Region Laterality Modality Spine Other 02/23/2008 5:48 PM SIDE TRIMMER Narrative 02/24/2008 2:31 PM SIDE TRIMMER Exam: Spine - Lumbar Date/Time of Exam: Feb 23, 2008 5:48:04 PM History: Low back pain. Comparisons: None. Findings: Mild osteophyte formation is noted throughout the lumbar spine consistent with mild degenerative changes. Mild facet degenerative changes are present at L4/L5 and L5/S1 levels. No evidence for fracture or subluxation. Intervertebral disc heights appear within normal limits. Pedicles are intact. Impressions: 1. Mild degenerative changes of the lumbar spine. - Dictated By: Vinicio Wilkerson M.D., Ph.D. Electronically Signed By: Vinicio Wilkerson M.D., Ph.D. Date Signed: 02/24/08 AMA Procedure Note Vinicio Wilkerson MD - 02/24/2008 Exam: Spine - Lumbar Date/Time of Exam: Feb 23, 2008 5:48:04 PM History: Low back pain. Comparisons: None. Findings: Mild osteophyte formation is noted throughout the lumbar spineconsistent with mild degenerative changes. Mild facet degenerative changes are present at L4/L5and L5/S1 levels. No evidence for fracture or subluxation. Intervertebral disc heights appear withinnormal limits. Pedicles are intact. Impressions: 1. Mild degenerative changes of the lumbar spine. - Dictated By: Vinicio Wilkerson M.D., Ph.D. Electronically Signed By: Vinicio Wilkerson M.D., Ph.D. Date Signed: 02/24/08 AMA Geovany Sy MD DIAGNOSTIC IMAGING ORDERABLES F inal Result * XR CERVICAL SPINE 2 OR 3 VW (02/23/2008 5:48 PM SIDE TRIMMER) Anatomical Region Laterality Modality Spine Other 02/23/2008 5:48 PM SIDE TRIMMER Narrative 02/24/2008 2:31 PM SIDE TRIMMER Exam: Spine - Cervical Limited Date/Time of Exam: Feb 23, 2008 5:48:04 PM History: Neck pain. Comparisons: None. Findings: Cervical spine alignment appears within normal limits. There is no evidence for fracture or subluxation. Intervertebral disc heights appear within normal limits. Soft tissues are radiographically unremarkable. Impressions: 1. Unremarkable examination of the cervical spine. - Dictated By: Vinicio Wilkerson M.D., Ph.D. Electronically Signed By: Vinicio Wilkerson M.D., Ph.D. Date Signed: 02/24/08 AMA Procedure Note Vinicio Wilkerson MD - 02/24/2008 Exam: Spine - Cervical Limited Date/Time of Exam: Feb 23, 2008 5:48:04 PM History: Neck pain. Comparisons: None. Findings: Cervical spine alignment appears within normal limits. There isno evidence for fracture or subluxation. Intervertebral disc heights appear within normal limits. Softtissues are radiographically unremarkable. Impressions: 1. Unremarkable examination of the cervical spine. - Dictated By: Vinicio Wilkerson M.D., Ph.D. Electronically Signed By: Vinicio Wilkerson M.D., Ph.D. Date Signed: 02/24/08 AMA Geovany Sy MD DIAGNOSTIC IMAGING ORDERABLES F inal Result documented in this encounter Visit Diagnoses Not on filedocumented in this encounter Care Teams Fur Mixer Operator Relationship Specialty Start Date End Date Zack Gandara MD PCP - General Family Practice 01/23/19 03/19/19 documented as of this encounter
--- OUTSIDE RECORDS SUMMARY | 2024-08-24 19:09 | XMS_ITS | Encounter Summary ---
Author Organization [facility] Address [address] [place] [address] Care Team Providers Care Transport Aide Name Role Phone Zack Gandara MD Primary Care Provider Encounter Details Date Type Department Care Team (Late st Contact Info) Description 10/22/2005 Outpatient Historical [facility] [address] [place] [address] Dania Chandra PA [address] [place] [phone] Juancarlos Obrien MD NO ADDRESS ON FILE Sprain and Strain of Unspecified Site of Hand (Primary Dx); Contusion of Hand(s); Abrasion Hand; Struck Statnry Object w/o Fall Social History Tobacco Use Types Packs/Day Years Used Date Smoking Tobacco: Never Assessed Comments Unknown Sex and Gender Information Value Date Recorded Sex Assigned at Not on file 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 Gender Identity Not on file Sexual Orientation Not on file documented as of this encounter Plan of Treatment Not on file documented as of this encounter Visit Diagnoses Diagnosis Sprain of hand, unspecified site- Primary Contusion of hand(s) Hand(s) except finger(s) alone, abrasion or friction burn, without mention of infection Striking against or struck accidentally by other stationary object without subsequent fall documented in this encounter Care Teams Transport Aide Relationship Specialty Start Date End Date Zack Gandara MD PCP - General Family Practice 01/23/19 03/19/19 documented as of this encounter
--- OUTSIDE RECORDS SUMMARY | 2024-08-24 19:09 | XMS_ITS | Encounter Summary ---
Author Organization [facility] Address [address] [place] [address] Care Team Providers Care Security Guard Supervisor Name Role Phone Zack Gandara MD Primary Care Provider Encounter Details Date Type Department Care Team (Late st Contact Info) Description 05/28/2010 Outpatient Historical [facility] [address] 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
--- OUTSIDE RECORDS SUMMARY | 2024-08-24 19:09 | XMS_ITS | Encounter Summary ---
Author Organization [facility] Address [address] [place] [address] Care Team Providers Care Superintendent Production Name Role Phone Zack Gandara MD Primary Care Provider Encounter Details Date Type Department Care Team (Late st Contact Info) Description 11/29/2006 Outpatient Historical [facility] Services [address] [place] [phone] David Kim MD [address] [place] [phone] Effusion of Lower Leg Joint (Primary Dx) Social History Tobacco Use Types Packs/Day Years Used Date Smoking Tobacco: Never Assessed Comments Unknown Sex and Gender Information Value Date Recorded Sex Assigned at Not on file Legal Sex Female 4:09 AM A/C TECH Gender Identity Not on file Sexual Orientation Not on file documented as of this encounter Plan of Treatment Not on file documented as of this encounter Procedures Procedure Name Priority Date/Time Associated Diagnosis Comments MRI KNEE WO CONTRAST RIGHT Routine 11/29/2006 2:59 PM CDT documented in this encounter Results * MRI KNEE WO CONTRAST RIGHT (11/29/2006 2:59 PM CDT) Anatomical Region Laterality Modality Lower Extremity Other 11/29/2006 2:59 PM CDT Narrative 11/29/2006 2:59 PM CDT MRI right knee without contrast 11/29/2006: Indication: 41-year-old female with history of right knee pain and old fracture deformity. Technique: Proton density sagittal, T1 coronal, T2 fat-sat sagittal and axial, STIR coronal. Comparison: Plain film radiographs of 11/11/2006. Findings: Images are degraded by patient motion artifact. The ACL, PCL, MCL, and LCL complex areintact. A physiologic joint effusion is present. A partial thickness fissure involving thearticular cartilage of the apex of the patella superiorly is identified. The extensor mechanism isotherwise intact. A tiny popliteal cyst is present. Grade 3 horizontal signal extending to the apexof the body and posterior junction of the medial meniscus is identified. Mild tricompartmentalmarginal osteophyte formation is present. No unequivocal grade 3 lateral meniscal signal isidentified. Thinning and surface irregularity of the articular cartilage of the weight-bearingportion of the medial femoral condyle is present. Lobulated cystic appearing lesion between the ACLand PCL is identified consistent with a intercondylar notch cyst. No marrow edema isidentified. Impression: 1. Mild tricompartmental degenerative change greatest within the medial compartment with probablehorizontal cleavage tear of the body and posterior junction of the medial meniscus. 2. Probable small intercondylar notch cysts. 3. Tiny dissecting popliteal cyst. 4. Patient motion artifact. - Dictated By: Yaima Butler M.D. Electronically Signed By: Yaima Butler M.D. Date Signed: 11/30/06 Procedure Note 01/05/2009 MRI right knee without contrast 11/29/2006: Indication: 41-year-old female with history of right knee pain and old fracturedeformity. Technique: Proton density sagittal, T1 coronal, T2 fat-sat sagittal and axial, STIRcoronal. Comparison: Plain film radiographs of 11/11/2006. Findings: Images are degraded by patient motion artifact. The ACL, PCL, MCL, and LCLcomplex areintact. A physiologic joint effusion is present. A partial thickness fissureinvolving thearticular cartilage of the apex of the patella superiorly is identified. The extensor mechanismisotherwise intact. A tiny popliteal cyst is present. Grade 3 horizontal signal extending to theapexof the body and posterior junction of the medial meniscus is identified. Mildtricompartmentalmarginal osteophyte formation is present. No unequivocal grade 3 lateral meniscal signal isidentified.Thinning and surface irregularity of the articular cartilage of the weight-bearingportion of the medialfemoral condyle is present. Lobulated cystic appearing lesion between the ACLand PCL is identifiedconsistent with a intercondylar notch cyst. No marrow edema isidentified. Impression: 1. Mild tricompartmental degenerative change greatest within the medialcompartment with probablehorizontal cleavage tear of the body and posterior junction of themedial meniscus. 2. Probable small intercondylar notch cysts. 3. Tiny dissecting popliteal cyst. 4. Patient motion artifact. - Dictated By: Yaima Butler M.D. Electronically Signed By: Yaima Butler M.D. Date Signed: 11/30/06 us David Kim MD MR ORDERABLES Final Re sult documented in this encounter Visit Diagnoses Diagnosis Effusion of lower leg joint- Primary documented in this encounter Care Teams Superintendent Production Relationship Specialty Start Date End Date Zack Gandara MD PCP - General Family Practice 01/23/19 03/19/19 documented as of this encounter
--- OUTSIDE RECORDS SUMMARY | 2024-08-24 19:09 | XMS_ITS | Encounter Summary ---
Author Organization [facility] Address [address] [place] [address] Care Team Providers Care Production Team Member Name Role Phone Zack Gandara MD Primary Care Provider [phone] Encounter Details Date Type Department Care Team (Late st Contact Info) Description 07/21/2007 Emergency [facility] Emergency Department [address] [place] [address] Ed, Physician NO ADDRESS ON FILE Taras Kaur, WIND SITE MANAGER [address] [place] [address] Lumbar Sprain and Strain; Unspecified Site of Ankle Sprain and Strain; Contusion of Knee; Loc Osteoarth NOS-L/Leg; Lumbosacral Spondylosis without Myelopathy; Encounter for Long-Term (Current) Use of Other Medications; Personal History of Allergy to Penicillin; Personal History of Allergy to Analgesic Agent; Personal History of Allergy to Sulfonamides; Fall from Other Slipping, Tripping, or Stumbling; Place of Occurrence, Home Social History Tobacco Use Types Packs/Day Years Used Date Smoking Tobacco: Never Assessed Comments Unknown Sex and Gender Information Value Date Recorded Sex Assigned at Not on file Legal Sex Female 4:09 AM 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 Gender Identity Not on file Sexual Orientation Not on file documented as of this encounter Plan of Treatment Not on file documented as of this encounter Procedures Procedure Name Priority Date/Time Associated Diagnosis Comments XR ANKLE 3+ VW LEFT Routine 07/21/2007 2 :16 PM CDT XR KNEE 3 VW RIGHT Routine 07/21/2007 2: 16 PM CDT XR LUMBAR SPINE 2 OR 3 VW Routine 07/21/2007 2:16 PM CDT XR CERVICAL SPINE 2 OR 3 VIEWS Routine 07/21/2007 2:16 PM CDT documented in this encounter Results * XR LUMBAR SPINE 2 OR 3 VW (07/21/2007 2:16 PM CDT) Anatomical Region Laterality Modality Spine Other 07/21/2007 2:16 PM CDT Narrative 07/22/2007 7:41 PM CDT Exam: Spine - Lumbar Date/Time of Exam: Jul 21, 2007 2:16:12 PM History: Injury. Comparisons: 03/08/2007 at 1140. Findings: Lumbar spine alignment appears within normal limits. There is no evidence for fracture or subluxation. Intervertebral disc heights appear within normal limits. Facets are unremarkable. Pedicles appear within normal limits. Small osteophytes are seen throughout the lumbar spine. Impression: 1. Mild degenerative changes of the lumbar spine, stable. 2. No evidence for fracture. - Dictated By: Vinicio Wilkerson M.D., Ph.D. Electronically Signed By: Vinicio Wilkerson M.D., Ph.D. Date Signed: 07/22/07 Procedure Note Vinicio Wilkerson - 07/22/2007 Exam: Spine - Lumbar Date/Time of Exam: Jul 21, 2007 2:16:12 PM History: Injury. Comparisons: 03/08/2007 at 1140. Findings: Lumbar spine alignment appears within normal limits. There is noevidence for fracture or subluxation. Intervertebral disc heights appear within normal limits.Facets are unremarkable. Pedicles appear within normal limits. Small osteophytes are seen throughout thelumbar spine. Impression: 1. Mild degenerative changes of the lumbar spine, stable. 2. No evidence for fracture. - Dictated By: Vinicio Wilkerson M.D., Ph.D. Electronically Signed By: Vinicio Wilkerson M.D., Ph.D. Date Signed: 07/22/07 [facility]AB[facility] Final Result * XR ANKLE 3+ VW LEFT (07/21/2007 2:16 PM CDT) Anatomical Region Laterality Modality Ankle / Foot Other 07/21/2007 2:16 PM CDT Narrative 07/22/2007 7:41 PM CDT Exam: Ankle - Left Date/Time of Exam: Jul 21, 2007 2:16:12 PM History: Injury. Comparisons: None. Findings: There is no evidence for fracture or dislocation. Joint spaces appear within normal limits. Soft tissues are radiographically unremarkable. Impression: 1. Unremarkable examination of the left ankle. - Dictated By: Vinicio Wilkerson M.D., Ph.D. Electronically Signed By: Vinicio Wilkerson M.D., Ph.D. Date Signed: 07/22/07 JAW Procedure Note Vinicio Wilkerson - 07/22/2007 Exam: Ankle - Left Date/Time of Exam: Jul 21, 2007 2:16:12 PM History: Injury. Comparisons: None. Findings: There is no evidence for fracture or dislocation. Joint spacesappear within normal limits. Soft tissues are radiographically unremarkable. Impression: 1. Unremarkable examination of the left ankle. - Dictated By: Vinicio Wilkerson M.D., Ph.D. Electronically Signed By: Vinicio Wilkerson M.D., Ph.D. Date Signed: 07/22/07 JAW Taras Kaur [facility] DIAGNOSTIC IMAGING ORDERABLES Final Result * XR KNEE 3 VW RIGHT (07/21/2007 2:16 PM CDT) Anatomical Region Laterality Modality Lower Extremity Other 07/21/2007 2:16 PM CDT Narrative 07/22/2007 7:41 PM CDT Exam: Knee - Right 3 View Date/Time of Exam: Jul 21, 2007 2:16:12 PM History: Injury. Comparisons: 03/08/2007 at 1140. Findings: Mild tricompartmental degenerative changes of the right knee are identified worse in the medial compartment. No fractures are identified. No definite effusions are identified. Impressions: 1. Mild tricompartmental degenerative changes of right knee worse in the medial compartment. 2. No evidence for fracture. - Dictated By: Vinicio Wilkerson M.D., Ph.D. Electronically Signed By: Vinicio Wilkerson M.D., Ph.D. Date Signed: 07/22/07 Procedure Note Vinicio Wilkerson - 07/22/2007 Exam: Knee - Right 3 View Date/Time of Exam: Jul 21, 2007 2:16:12 PM History: Injury. Comparisons: 03/08/2007 at 1140. Findings: Mild tricompartmental degenerative changes of the right knee areidentified worse in the medial compartment. No fractures are identified. No definite effusions areidentified. Impressions: 1. Mild tricompartmental degenerative changes of right knee worse in themedial compartment. 2. No evidence for fracture. - Dictated By: Vinicio Wilkerson M.D., Ph.D. Electronically Signed By: Vinicio Wilkerson M.D., Ph.D. Date Signed: 07/22/07 Taras Kaur [facility] DIAGNOSTIC IMAGING ORDERABLES Final Result * XR CERVICAL SPINE 2 OR 3 VW (07/21/2007 2:16 PM CDT) Anatomical Region Laterality Modality Spine Other 07/21/2007 2:16 PM CDT Narrative 07/21/2007 2:16 PM CDT Exam: Spine - Cervical Limited Date/Time of Exam: Jul 21, 2007 2:16:12 PM History: Injury. Comparisons: None. Findings: Cervical spine alignment appears within normal limits. There is no evidence for fracture or subluxation. Intravertebral disc heights appear within normal limits. Facets are unremarkable. Soft tissues are radiographically unremarkable. Impressions: 1. Unremarkable examination of the cervical spine. - Dictated By: Vinicio Wilkerson M.D., Ph.D. Electronically Signed By: Vinicio Wilkerson M.D., Ph.D. Date Signed: 07/22/07 Procedure Note Vinicio Wilkerson - 07/22/2007 Exam: Spine - Cervical Limited Date/Time of Exam: Jul 21, 2007 2:16:12 PM History: Injury. Comparisons: None. Findings: Cervical spine alignment appears within normal limits. There isno evidence for fracture or subluxation. Intravertebral disc heights appear within normal limits.Facets are unremarkable. Soft tissues are radiographically unremarkable. Impressions: 1. Unremarkable examination of the cervical spine. - Dictated By: Vinicio Wilkerson M.D., Ph.D. Electronically Signed By: Vinicio Wilkerson M.D., Ph.D. Date Signed: 07/22/07 Taras Kaur WIND SITE MANAGER DIAGNOSTIC IMAGING ORDERABLES Final Result documented in this encounter Visit Diagnoses Diagnosis Sprain of lumbar region Sprain of ankle, unspecified site Contusion of knee Localized osteoarthrosis not specified whether primary or secondary, lower leg Lumbosacral spondylosis without myelopathy Encounter for long-term (current) use of other medications Personal history of allergy to penicillin Personal history of allergy to analgesic agent Personal history of allergy to sulfonamides Fall from other slipping, tripping, or stumbling Place of occurrence, home documented in this encounter Care Teams Production Team Member Relationship Specialty Start Date End Date Zack Gandara MD PCP - General Family Practice 01/23/19 03/19/19 documented as of this encounter
--- OUTSIDE RECORDS SUMMARY | 2024-08-24 19:09 | XMS_ITS | Encounter Summary ---
Author Organization [facility] Address [address] [place] [address] Care Team Providers Care Novelty Maker Name Role Phone Zack Gandara MD Primary Care Provider [phone] Encounter Details Date Type Department Care Team (Late st Contact Info) Description 05/27/2003 Emergency [facility] Emergency Department [address] [place] [phone] Jadiel Brothers D, DO [address] [place] [phone] LUMB/LUMBOSAC DISC DEGEN (Primary Dx) Social History Tobacco Use Types Packs/Day Years Used Date Smoking Tobacco: Never Assessed Comments Unknown Sex and Gender Information Value Date Recorded Sex Assigned at Not on file Legal Sex Female 4:09 AM MATTRESS FILLER Gender Identity Not on file Sexual Orientation Not on file documented as of this encounter Plan of Treatment Not on file documented as of this encounter Visit Diagnoses Diagnosis Degeneration of lumbar or lumbosacral intervertebral disc- Primary documented in this encounter Care Teams Novelty Maker Relationship Specialty Start Date End Date Zack Gandara MD PCP - General Family Practice 01/23/19 03/19/19 documented as of this encounter
--- OUTSIDE RECORDS SUMMARY | 2024-08-24 19:09 | XMS_ITS | Encounter Summary ---
Author Organization [facility] Address [address] [place] [address] Care Team Providers Care Co Founder And Director Name Role Phone Zack Gandara MD Primary Care Provider Encounter Details Date Type Department Care Team (Latest Contact Info) Description 01/04/2006 Outpatient Historical [facility] Internal Medicine [address] [place] [phone] [place] [address] [address] Obstructive Sleep Apnea (Primary Dx); Unspecified Essential Hypertension; Obesity, Unspecified; Tobacco Use Disorder Social History Tobacco Use Types Packs/Day Years Used Date Smoking Tobacco: Never Assessed Comments Unknown Sex and Gender Information Value Date Recorded Sex Assigned at Not on file Legal Sex Female 4:09 AM SUB MASTER Gender Identity Not on file Sexual Orientation Not on file documented as of this encounter Plan of Treatment Not on file documented as of this encounter Visit Diagnoses Diagnosis Obstructive sleep apnea- Primary Obstructive sleep apnea (adult) (pediatric) Unspecified essential hypertension Obesity, unspecified Tobacco use disorder documented in this encounter Care Teams Co Founder And Director Relationship Specialty Start Date End Date Zack Gandara MD PCP - General Family Practice 01/23/19 03/19/19 documented as of this encounter
--- OUTSIDE RECORDS SUMMARY | 2024-08-24 19:09 | XMS_ITS | Encounter Summary ---
Author Organization [facility] Address [address] [place] [address] Care Team Providers Care [employer] Education Teacher Name Role Phone Zack Gandara MD Primary Care Provider Encounter Details Date Type Department Care Team (Late st Contact Info) Description 02/05/2007 Emergency [facility] Emergency Department [address] [place] [phone] Ed, Physician NO ADDRESS ON FILE Armand Langford DO NO ADDRESS ON FILE Social History Tobacco Use Types Packs/Day Years Used Date Smoking Tobacco: Never Assessed Comments Unknown Sex and Gender Information Value Date Recorded Sex Assigned at Not on file Legal Sex Female 4:09 AM SOIL SURVEYOR Gender Identity Not on file Sexual Orientation Not on file documented as of this encounter Plan of Treatment Not on file documented as of this encounter Visit Diagnoses Not on filedocumented in this encounter Care Teams [employer] Teacher Relationship Specialty Start Date End Date Zack Gandara MD PCP - General Family Practice 01/23/19 03/19/19 documented as of this encounter
--- OUTSIDE RECORDS SUMMARY | 2024-08-24 19:09 | XMS_ITS | Encounter Summary ---
Author Organization [facility] Address [address] [place] [address] Care Team Providers Care Veneer Stock Grader Name Role Phone Zack Gandara MD Primary Care Provider Encounter Details Date Type Department Care Team (Late st Contact Info) Description 06/13/2010 Outpatient Historical [facility] [address] [place] [address] Carito Proctor MD [address] [place] [address] Lumbago (Primary Dx) Social History Tobacco Use Types Packs/Day Years Used Date Smoking Tobacco: Every Day Cigarettes 1 15 Alcohol Use Standard Drinks/Week Comments No 0 (1 standard drink = 0.6 oz pur e alcohol) Comments No Sex and Gender Information Value Date Recorded Sex Assigned at Not on file Legal Sex Female 4:09 AM FIRER LOCOMOTIVE Gender Identity Not on file Sexual Orientation Not on file documented as of this encounter Plan of Treatment Not on file documented as of this encounter Visit Diagnoses Diagnosis Lumbago- Primary documented in this encounter Care Teams Veneer Stock Grader Relationship Specialty Start Date End Date Zack Gandara MD PCP - General Family Practice 01/23/19 03/19/19 documented as of this encounter
--- OUTSIDE RECORDS SUMMARY | 2024-08-24 19:09 | XMS_ITS | Encounter Summary ---
Author Organization [facility] Address [address] [place] [address] Care Team Providers Care Geological Drafter Name Role Phone Zack Gandara MD Primary Care Provider Encounter Details Date Type Department Care Team (Latest Contact Info) Description 07/05/2007 Outpatient Historical [facility] Endoscopy [place] [address] [place] [phone] Kirill Kinney MD [address] [facility] [address] [place] [phone] Irritable Bowel Syndrome; Unspecified Sleep Apnea; Tobacco Use Disorder Social History Tobacco Use Types Packs/Day Years Used Date Smoking Tobacco: Never Assessed Comments Unknown Sex and Gender Information Value Date Recorded Sex Assigned at Not on file Legal Sex Female 4:09 AM MAXILLOFACIAL PROSTHODONTIST Gender Identity Not on file Sexual Orientation Not on file documented as of this encounter Plan of Treatment Not on file documented as of this encounter Procedures Procedure Name Priority Date/Time Associated Diagnosis Comments PATHOLOGY Routine 07/06/2007 8:29 AM CDT documented in this encounter Results * PATHOLOGY (07/06/2007 8:29 AM CDT) PATHOLOGY/CYT OLOGY REPORT [facility] Anatomic Pathology Dept [address] [facility] [address] Patient: CYNDI BACA Accn No: [id number] Collected: 07/06/2007 8:29:00 AM SURGICAL PATHOLOGY FINAL REPORT Diagnosis A. Colon, random, biopsy - no diagnostic abnormalities. Irene Santamaria M.D. (Electronicall y signed by) Verified: 07/07/07 LJW/CEP Clinical Information Rule out microscopic colitis. Specimen Source AColon, RANDOM Microscopic Description Microscopic examination was performed. Gross Description Part A. Submitted in a container of formalin labelled Keven - #1 biopsies, random colon are six kaufman tissue fragments ranging in size from 0.3 to 0.6 cm. The specimen is submitted entirely in A1. DLS/WLS INTERFACE SYSTEM 07/06/2007 8:29 AM CDT us Kirill Kinney MD PATHOLOGY/CYTOLOGY ORDERABLES Final Result INTERFACE SYSTEM Refer to clinic/hospital department documented in this encounter Visit Diagnoses Diagnosis Irritable bowel syndrome Unspecified sleep apnea Tobacco use disorder documented in this encounter Care Teams Geological Drafter Relationship Specialty Start Date End Date Zack Gandara MD PCP - General Family Practice 01/23/19 03/19/19 documented as of this encounter
--- OUTSIDE RECORDS SUMMARY | 2024-08-24 19:09 | XMS_ITS | Encounter Summary ---
Author Organization [facility] Address [address] [place] [address] Care Team Providers Care Balance Engineer Name Role Phone Zack Gandara MD Primary Care Provider [phone] Encounter Details Date Type Department Care Team (Late st Contact Info) Description 2007 Emergency [facility] Emergency Department [address] [place] [address] Ed, Physician NO ADDRESS ON FILE Taras Kaur, TUBE CLEANER [address] [place] [address] Other Chronic Pain; Lumbago; Bipolar Disorder, Unspecified (CMS/HCC); Tobacco Use Disorder; Acquired Absence of Organ, Genital Organs; Other Acquired Absence of Organ; Encounter for Long-Term (Current) Use of Other Medications; Personal History of Allergy to Other Anti-Infective Agent; Personal History of Allergy to Penicillin; Personal History of Allergy to Analgesic Agent; Personal History of Allergy to Other Specified Medicinal Agents; Fall from Other Slipping, Tripping, or Stumbling; Other Specified Place of Occurrence Social History Tobacco Use Types Packs/Day Years Used Date Smoking Tobacco: Never Assessed Comments Unknown Sex and Gender Information Value Date Recorded Sex Assigned at Not on file Legal Sex Female 4:09 AM HEAD BONE GRINDER Gender Identity Not on file Sexual Orientation Not on file documented as of this encounter Plan of Treatment Not on file documented as of this encounter Procedures Procedure Name Priority Date/Time Associated Diagnosis Comments XR KNEE 1 OR 2 VW LEFT Routine 2007 3:03 PM CDT documented in this encounter Results * XR KNEE 1 OR 2 VW LEFT (2007 3:03 PM CDT) Anatomical Region Laterality Modality Lower Extremity Other 2007 3:03 PM CDT Narrative 2007 11:27 PM CDT Exam: Knee - Left Date/Time of Exam: 2007 3:03:28 PM History: Injury. Comparison: None. Findings: AP and lateral views of the left knee demonstrate no acute fracture or dislocation. No significant effusion of the suprapatellar pouch is identified. An approximately 7.0 mm in diameter focal soft tissue defect/laceration involving the pretibial soft tissues is noted. No radiopaque foreign body seen. Impression: 1. Negative for acute osseous abnormality. 2. Small soft tissue defect/laceration of the pretibial soft tissues. - Dictated By: Yaima Butler M.D. Electronically Signed By: Yaima Butler M.D. Date Signed: 11/08/07 Procedure Note Kylee Butler - 2007 Exam: Knee - Left Date/Time of Exam: 2007 3:03:28 PM History: Injury. Comparison: None. Findings: AP and lateral views of the left knee demonstrate no acutefracture or dislocation. No significant effusion of the suprapatellar pouch is identified. Anapproximately 7.0 mm in diameter focal soft tissue defect/laceration involving the pretibial soft tissues isnoted. No radiopaque foreign body seen. Impression: 1. Negative for acute osseous abnormality. 2. Small soft tissue defect/laceration of the pretibial soft tissues. - Dictated By: Yaima Butler M.D. Electronically Signed By: Yaima Butler M.D. Date Signed: 11/08/07 Taras Kaur TUBE CLEANER DIAGNOSTIC IMAGING ORDERABLES Final Result documented in this encounter Visit Diagnoses Diagnosis Other chronic pain Lumbago Bipolar disorder, unspecified ([facility]) Bipolar disorder, unspecified Tobacco use disorder Acquired absence of organ, genital organs Other acquired absence of organ Encounter for long-term (current) use of other medications Personal history of allergy to other anti-infective agent Personal history of allergy to penicillin Personal history of allergy to analgesic agent Personal history of allergy to other specified medicinal agents Fall from other slipping, tripping, or stumbling Accidents occurring in other specified places documented in this encounter Care Teams Balance Engineer Relationship Specialty Start Date End Date Zack Gandara MD PCP - General Family Practice 01/23/19 03/19/19 documented as of this encounter
[2024-08-24 19:10] VITALS: BP 113/87; PULSE 69; RESP 18; TEMP 36.9; O2SAT 94; BMI 43.9
--- NOTE | 2024-08-24 19:29 | XRR_ITS ---
PROCEDURE INFORMATION: Exam: XR Left Hip Exam date and time: 08/24/2024 7:32 PM Age: 58 years old Clinical indication: C/O worsening chronic left hip pain. TECHNIQUE: Imaging protocol: Radiologic exam of the left hip. Views: 2 or 3 views hip with pelvis when performed. COMPARISON: CT pelvis wo con [id number] 04/22/2024 3:29 PM FINDINGS: Bones/joints: There is joint space narrowing at the femoroacetabular joint with marginal osteophytes along the femoral head suggesting underlying osteoarthritis. No fracture is radiographically apparent. No aggressive osseous lesion is seen. Soft tissues: Unremarkable. XR/XR hip LT 2-3V wo/w pel* [id number] IMPRESSION: Osteoarthritis of the left hip. No radiographically apparent fracture. If clinical concern remains consider CT which is more sensitive.
[2024-08-24 19:33] VITALS: BP 128/88; PULSE 104; O2SAT 93
[2024-08-24 20:18] VITALS: RESP 20; O2SAT 92
[2024-08-24] MEDS: ondansetron 2 mg/ML SDV 2 mL 4 MG IVP ×2 (20:18→21:13)
[2024-08-24] MEDS: morphine 4 mg/mL SDV 1 mL IVP (20:18)
[2024-08-24 20:20] VITALS: BP 128/88; PULSE 102; O2SAT 92
--- NOTE | 2024-08-24 20:27 | W.ED.EXTPRO ---
HPI - Extremity Problem General: Chief complaint: Extremity Injury, Lower Stated complaint: Leg/Hip, BS issues Time Seen by Provider: 08/24/24 19:05 History of Present Illness: 58-year-old female complaining of left hip pain. She has chronic bilateral hip and lower back pain. She states she has been seen by orthopedics, and they have told her that her hips are osteoarthritic, and that they will not do surgery on her until she loses some weight. She was transferring from her wheelchair and her hip popped earlier. She experienced intense groin and lateral hip pain on the left side. It is improved to some degree now. She was able to bear weight off the ambulance gurney. She still having pain though, and it runs down her anterior leg. No numbness or tingling. Related Data Home Medications ?Medication ?Instructions ?Recorded ?Confirmed insulin lispro 100 unit/mL See Rx Instructions .Route .COMPLEX 04/22/24 08/23/24 subcutaneous pen (Admelog SoloStar U-100 Insulin lispro) Previous Rx's ?Medication ?Instructions ?Recorded manual wheelchair #1 ea 10/03/19 TENS unit and equipment #1 ea 10/01/22 wheelchair #1 ea 10/14/22 CPAP 6-16cm setting #1 ea 11/23/22 CPAP mask, tubing, supplies #1 ea 11/23/22 Left wrist brace #1 ea 12/06/22 lancets #100 ea 01/24/23 lancets #200 ea 02/21/23 motorized electric scooter #1 ea 02/21/23 blood sugar diagnostic (Blood #200 ea 03/04/23 Glucose Test strips) blood sugar diagnostic (Blood #200 ea 03/16/23 Glucose Test strips) lancets #200 ea 03/16/23 naloxone 4 mg/actuation nasal 4 mg intranasal Q2M PRN opioid 03/16/23 spray (Narcan) overdose #2 ea pen needle, diabetic 30 gauge x #100 ea 03/17/23 5/16 (Pen Needle) dexcom G7 transmitter #1 ea 07/29/23 albuterol sulfate 90 mcg/actuation 2 puff inhalation Q6H PRN 08/17/23 aerosol inhaler shortness of breath or wheezing #8.5 grams aspirin 81 mg chewable tablet 81 mg PO QAM #60 tabs 08/17/23 tiotropium bromide 18 mcg capsule 1 cap inhalation DAILY #60 08/17/23 with inhalation device (Spiriva inhalations with HandiHaler) escitalopram oxalate 20 mg tablet 20 mg PO QAM #90 tabs 11/22/23 (Lexapro) loperamide 2 mg tablet (Imodium 2 mg PO QID PRN loose stool #30 01/18/24 A-D) tabs duloxetine 30 mg capsule,delayed 30 mg PO BID #180 caps 02/27/24 release (Cymbalta) blood-glucose,sales clerk,cont #1 ea 03/06/24 (Dexcom G7 Mounter Smoking Pipe) atorvastatin 40 mg tablet (Lipitor) 40 mg PO BEDTIME #90 tabs 04/05/24 nystatin 100,000 unit/gram topical 1 applic topical BID 2 weeks #30 05/01/24 ointment grams blood-glucose sensor (Dexcom G7 #3 ea 06/21/24 Sensor device) cetirizine 10 mg tablet (Zyrtec) 10 mg PO DAILY PRN allergy 06/21/24 symptoms #90 tabs fluticasone propionate 50 2 spray intranasal DAILY #16 grams 06/21/24 mcg/actuation nasal spray,suspension (Flonase Allergy Relief) portable oxygen concentrator #1 ea 06/21/24 famotidine 20 mg tablet 20 mg PO QDAY #90 tabs 06/26/24 glipizide 10 mg tablet 10 mg PO DAILY #90 tabs 06/27/24 meloxicam 15 mg tablet 15 mg PO QAM #90 tabs 06/27/24 benzonatate 100 mg capsule 100 mg PO BID PRN Cough #60 caps 07/02/24 quetiapine 150 mg tablet,extended 150 mg PO BEDTIME #90 tabs 07/03/24 release 24 hr (Seroquel XR) insulin glargine 100 unit/mL (3 25 unit (0.25 mL) SUBCUT QAM #15 mL 07/17/24 mL) subcutaneous pen (Lantus Solostar U-100 Insulin) gabapentin 600 mg tablet 600 mg PO TID #270 tabs 07/30/24 metformin 500 mg tablet 1,000 mg (2 x 500 mg) PO BID #360 07/30/24 tabs promethazine 25 mg tablet 25 mg PO TID PRN Nausea And 08/06/24 Vomiting #90 tabs baclofen 10 mg tablet 10 mg PO BID #60 tabs 08/23/24 hydrocodone 7.5 mg-acetaminophen 1 tab PO BID PRN pain 30 days #60 08/23/24 325 mg tablet tabs morphine 30 mg tablet,extended 30 mg PO .qdaily pain 30 days #30 08/23/24 release (MS Contin) tabs tirzepatide (weight loss) 5 mg/0.5 5 mg (0.5 mL) SUBCUT .qweekly #2 mL 08/23/24 mL subcutaneous pen injector (Zepbound) Allergies Allergy/AdvReac Type Severity Reaction Status Date / Time ketorolac (From Toradol) Allergy Severe ALGY-Anaphy Verified 08/23/24 08:19 laxis Penicillins Allergy Severe ALGY-Anaphy Verified 08/23/24 08:19 laxis Sulfa (Sulfonamide Allergy Severe ALGY-Anaphy Verified 08/23/24 08:19 Antibiotics) laxis tetracycline Allergy Severe ALGY-Anaphy Verified 08/23/24 08:19 laxis lidocaine Allergy ALGY-Hives Verified 08/23/24 08:19 tramadol (From Ultram) Allergy ALGY-Difficulty Verified 08/23/24 08:19 Breathing [facility] ED PFSH: Medical History (Updated 08/24/24 @ 20:42 by Abelardo Rodriguez DO) Allergic conjunctivitis and rhinitis Adrenal mass Type 2 diabetes mellitus Hospital discharge follow-up Chronic hypercapnic respiratory failure Chronic respiratory failure with hypoxia Dyslipidemia Neuropathic pain, leg, bilateral Osteoarthritis IVELISSE (obstructive sleep apnea) GERD without esophagitis Chronic low back pain Pulmonary nodules Rheumatoid arthritis History of stroke Chronic cystitis delivery delivered Constipation Hematochezia Insomnia Community acquired pneumonia History of bipolar disorder History of hypertension Surgical History History of incisional hernia repair History of hysterectomy History of cholecystectomy History of tonsillectomy History of knee surgery Family History Mother , at age 78 COVID-19 Brother , at age 58 Cancer Colon Father , at age 45 Car occupant injured in traffic accident Cancer Colon Family/Other Cancer Paternal-lung Other Chronic kidney disease (CKD) Dementia Diabetes Hyperlipidemia Hypertension Lung disease Stroke Denies family history of CAD (coronary artery disease) Clotting disorder Psychiatric illness Anesthesia complication Bleeding disorder Social History Smoking and tobacco/nicotine status: current every day tobacco/nicotine user cigarettes Packs smoked per day: 0.5 Years cigarettes smoked: 30 [ Other cigarette details: Currently smoking 6-7/day] Quit status (tobacco/nicotine): considering quitting Alcohol intake: never Substance/Drug Use: former Adopted: No Lives independently: Yes Household members: spouse Marital status: Number of grandchildren: 2 Current occupational status: disabled Special sherine needs: No Agree to transfusion: Yes Female Reproductive History: Spontaneous abortions: No Physical Exam Const: COMMON NORMALS: no acute distress ORIENTATION/CONSCIOUSNESS: Yes awake, Yes oriented to person and Yes oriented to place HENMT: COMMON NORMALS: normocephalic and atraumatic HEAD & SCALP: normocephalic and atraumatic FACE & SINUS: normal facial exam Eye: COMMON NORMALS: Equal, round and reactive pupils present and EOMs intact bilaterally PUPIL: Yes Equal, round and reactive pupils present Chest: CHEST: Yes Symmetrical chest wall rise Resp: COMMON NORMALS: normal respiratory effort and No use of accessory muscles Cardio: COMMON NORMALS: regular rate and regular rhythm RATE: regular rate RHYTHM: regular rhythm Back/Pelvis: OTHER: Examination of the left hip reveals no deformity. There is tenderness anteriorly and laterally. There is pain on logroll testing. There is some pain with movement. The patient is able to bear weight. Sensation and pulses are normal distally. Neuro: SENSORIUM/ORIENTATION: Yes oriented to person and Yes oriented to place Course Vital Signs: Vital signs: Vital Signs Temperature 98.4 F 08/24/24 19:10 Pulse Rate 99 08/24/24 21:36 Respiratory Rate 18 08/24/24 21:11 Blood Pressure 124/86 08/24/24 21:36 Pulse Oximetry 93 08/24/24 21:36 Oxygen Delivery Me thod Nasal Cannula 08/24/24 19:33 Oxygen Flow Rate 2 08/24/24 19:33 MDM - Extremity (Nontraumatic) Medical Decision Making Hip x-ray reveals osteoarthritis of the left hip. There is no fracture or dislocation. Patient is able to bear weight. She is given IV morphine here with some relief. She will be allowed discharge home. She has previously been prescribed hydrocodone 7.5 mg as well as morphine extended release for chronic pain. Lab Data Radiology Impressions Hip/Pelvis X-Ray 08/24/24 19:29 IMPRESSION: Osteoarthritis of the left hip. No radiographically apparent fracture. If clinical concern remains consider CT which is more sensitive. Laboratory Results POC Glucose 214 mg/dL (70-110) H 08/24/24 19:25 All radiology interpretation(s) finalized by discharge Discharge Plan Discharge Patient Disposition: Home Clinical Impression: Osteoarthritis of left hip Condition: Stable Prescriptions: No Action (DME) manual wheelchair See Rx Instructions .Route .MEDSUPPLY Qty: 1 0RF Rx Instructions: As directed (DME) TENS unit and equipment See Rx Instructions .Route .MEDSUPPLY Qty: 1 0RF Rx Instructions: As directed (DME) Left wrist brace See Rx Instructions .Route .MEDSUPPLY Qty: 1 0RF Rx Instructions: As directed (DME) lancets Misc See Rx Instructions .Route Qty: 100 0RF Rx Instructions: As directed (DME) lancets Misc See Rx Instructions .MEDSUPPLY Qty: 200 12RF Rx Instructions: Use as directed to prick skin for blood sugar checks (DME) motorized electric scooter See Rx Instructions .Route .MEDSUPPLY Qty: 1 0RF Rx Instructions: As directed (DME) Blood Glucose Test Strip See Rx Instructions .MEDSUPPLY Qty: 200 12RF Rx Instructions: Use as directed with glucometer to check blood sugar (DME) lancets Misc See Rx Instructions .MEDSUPPLY Qty: 200 12RF Rx Instructions: Use as directed to prick skin for blood sugar checks naloxone [Narcan] 4 mg/actuation spray,non-aerosol 4 mg intranasal Q2M PRN (Reason: opioid overdose) Qty: 2 0RF (DME) dexcom G7 transmitter See Rx Instructions .Route .MEDSUPPLY Qty: 1 2RF Rx Instructions: As directed escitalopram oxalate [Lexapro] 20 mg tablet 20 mg PO QAM Qty: 90 1RF loperamide [Imodium A-D] 2 mg tablet 2 mg PO QID PRN (Reason: loose stool) Qty: 30 0RF cetirizine [Zyrtec] 10 mg tablet 10 mg PO DAILY PRN (Reason: allergy symptoms) Qty: 90 1RF fluticasone propionate [Flonase Allergy Relief] 50 mcg/actuation spray,suspension 2 spray intranasal DAILY Qty: 16 0RF Rx Instructions: administer into each nostril (DME) portable oxygen concentrator See Rx Instructions .Route .MEDSUPPLY Qty: 1 0RF Rx Instructions: As directed (DME) Dexcom G7 Sensor Device See Rx Instructions .Route Qty: 3 3RF Rx Instructions: As directed baclofen 10 mg tablet 10 mg PO BID Qty: 60 3RF hydrocodone-acetaminophen 7.5-325 mg tablet 1 tab PO BID PRN (Reason: pain) 30 Days Qty: 60 0RF morphine [MS Contin] 30 mg tablet extended release 30 mg PO .qdaily 30 Days Qty: 30 0RF Zepbound 5 mg/0.5 mL pen injector 5 mg SUBCUT .qweekly Qty: 2 2RF (DME) wheelchair See Rx Instructions .Route .MEDSUPPLY Qty: 1 0RF Rx Instructions: As directed (DME) CPAP 6-16cm setting See Rx Instructions .ROUTE .MEDSUPPLY Qty: 1 0RF Rx Instructions: As directed (DME) CPAP mask, tubing, supplies See Rx Instructions .ROUTE .MEDSUPPLY Qty: 1 1RF Rx Instructions: As directed (DME) Blood Glucose Test Strip See Rx Instructions .MEDSUPPLY Qty: 200 12RF Rx Instructions: Use as directed with glucometer to check blood sugar (DME) pen needle, diabetic [Pen Needle] 30 gauge x 5/16 needle See Rx Instructions .MEDSUPPLY Qty: 100 12RF Rx Instructions: Use as directed for insulin administration albuterol sulfate 90 mcg/actuation HFA aerosol inhaler 2 puff inhalation Q6H PRN (Reason: shortness of breath or wheezing) Qty: 8.5 3RF aspirin 81 mg tablet,chewable 81 mg PO QAM Qty: 60 0RF tiotropium bromide [Spiriva with HandiHaler] 18 mcg capsule, w/inhalation device 1 cap inhalation DAILY Qty: 60 6RF Rx Instructions: puncture 1 cap using device; one dose = 2 inhalations duloxetine [Cymbalta] 30 mg capsule,delayed release(DR/EC) 30 mg PO BID Qty: 180 1RF (DME) Dexcom G7 Mounter Smoking Pipe Misc See Rx Instructions .Route Qty: 1 3RF Rx Instructions: As directed Lipitor 40 mg tablet 40 mg PO BEDTIME Qty: 90 1RF nystatin 100,000 unit/gram ointment 1 applic topical BID 14 Days Qty: 30 3RF famotidine 20 mg tablet 20 mg PO QDAY Qty: 90 1RF glipizide 10 mg tablet 10 mg PO DAILY Qty: 90 1RF meloxicam 15 mg tablet 15 mg PO QAM Qty: 90 1RF benzonatate 100 mg capsule 100 mg PO BID PRN (Reason: Cough) Qty: 60 0RF quetiapine [Seroquel XR] 150 mg tablet extended release 24 hr 150 mg PO BEDTIME Qty: 90 0RF insulin glargine [Lantus Solostar U-100 Insulin] 100 unit/mL (3 mL) insulin pen 25 unit SUBCUT QAM Qty: 15 2RF metformin 500 mg tablet 1,000 mg PO BID Qty: 360 1RF gabapentin 600 mg tablet 600 mg PO TID Qty: 270 1RF promethazine 25 mg tablet 25 mg PO TID PRN (Reason: Nausea And Vomiting) Qty: 90 0RF insulin lispro [Admelog SoloStar U-100 Insulin] 100 unit/mL insulin pen See Rx Instructions .ROUTE .COMPLEX Rx Instructions: Please check blood sugar 3 times a day with meals, inject 2 units subcu for blood sugars between 101 and 200, 4 units for blood sugar between 201 and 300, 6 units for blood sugar above 300, Discharge Orders: Discharge ED (Routine); Ordered 08/24/24 Ordered By: Abelardo Rodriguez Referrals: Robbie Burrell MD [Primary Care Provider, Family Practice] Patient Instructions: Opioid Safety, Pain Management, Patient Portal & Annette Instructions Activity Restrictions/Additional Instructions: Use ice, and home pain medication for left hip pain. Call your doctor on Tuesday for a follow-up appointment. Return for fever, numbness or tingling, other concerning symptoms. Print Language: Bulgarian Coding Level of Care Code ED Editorial Specialist for Abdirahman Hill
[2024-08-24 21:11] VITALS: RESP 18; O2SAT 94
[2024-08-24] MEDS: morphine 4 mg/mL SDV 1 mL 2 MG IVP (21:11)
[2024-08-24 21:36] VITALS: BP 124/86; PULSE 99; O2SAT 93
== END 2024-08-24 21:20 | disposition home or self-care (01) ==
PROVIDERS: Emergency Provider Emergency Medicine; PCP Family Medicine
DX: M16.12 Unilateral primary osteoarthritis, left hip (principal); Z79.82 Long term (current) use of aspirin; Z79.4 Long term (current) use of insulin; Z79.84 Long term (current) use of oral hypoglycemic drugs; F17.210 Nicotine dependence, cigarettes, uncomplicated; E78.5 Hyperlipidemia, unspecified; E11.9 Type 2 diabetes mellitus without complications
CPT/HCPCS: 36416; 73502; 82962; 96374; 96375; 96376; 99284; J2270; J2405

== ENCOUNTER 2024-10-27 20:31 | Emergency (ER) | payer MEDICAID, SELFPAY ==
--- OUTSIDE RECORDS SUMMARY | 2010-04-23 11:22 | XMS_ITS | Continuity of Care Document ---
Author Organization [facility] Address [address] [id number][place] [address] Phone Care Team Providers Care [place] Detective Name Role Phone Unavailable Unavailable Unavailable Allergies, [...] $5 (in-hous e) BASIC METABOLIC PANEL $10 ([id number]) EST-EXP PROB FOC/LOW COMPLEXITY 009 EST-EXP PROB [...] Diagnoses Date Provider Providers Copied on Encounter [facility], [id number], [place], [place], [address], [place] tel:[phone] Family Medicine F1 No Information 1 No Information OFFICE/OUTPA TIENT VISIT, [facility], [address]cjk[address] 91217[place], [place], [address], [place] tel:[phone] Family Medicine F1 back pain (chief complaint) medication refills (chief complaint) hemorrhoid s (chief complaint) Bronchitis, AcuteOsteoarthros is, unspecified whether generalized or localized, involving unspecified siteBackacheHemor rhoids 1 No Information OFFICE/OUTPA TIENT VISIT, [facility], [address] 2023179MXK[place], [place], [address], [place] tel:[phone] Family Medicine F1 back pain (chief complaint) medication requests (chief complaint) Osteoarthritis, GeneralizedObesit y, MorbidTherapeutic Drug Monitoring 1 No Information OFFICE/OUTPA TIENT VISIT, [facility], [address]ltnc[address]4 5131693QCKyle, [place], [address], [place] tel:[phone] Family Medicine F1 anxiety (chief complaint) Therapeutic Drug MonitoringOsteoar thritis, GeneralizedAnxiet y 1 No Information EST-EXP PROB FOC/LOW COMPLEXITY [facility], [address]yvwq[address]31D1 6690000TEK[place], [place], [address], [place] tel:[phone] Family Medicine F1 No Information 200 9 No Information EST-EXP PROB FOC/LOW COMPLEXITY [facility], [address] Skllc[address]H5 1875339SQKyle, [place], [address], [place] tel:[phone] Family Medicine F1 No Information Nov-0 6200 9 No Information EST-EXP PROB FOC/LOW COMPLEXITY [facility], [address] Shtrs[address]V9 1583702WP- [facility], [place], [place], [address], [place] tel:[phone] Family Medicine F1 No Information Sep-0 1200 9 No Information EST-EXP PROB FOC/LOW COMPLEXITY [facility], [address]nfzs[address]H8 7132151ZON[facility], [place], [place], [address], [place] tel:[phone] Family Medicine F1 No Information 2 9 No Information EST-PROB FOC/STR FORWARD [facility], [address]zqc[address]J6 3342759QONortheast [facility], [place], [place], [address], [place] tel:[phone] Family Medicine F1 No Information 9 No Information EST-EXP PROB FOC/LOW COMPLEXITY [facility], [address] [id number] 52246[address]AFYoung [place], [place], [address], [place] tel:[phone] Family Medicine F1 No Information 9 No Information EST-EXP PROB FOC/LOW COMPLEXITY [facility], [id number] 2181256ZCNortheast [facility], [place], [place], [address], [place] tel:[phone] Family Medicine F1 No Information 9 No Information EST-EXP PROB FOC/LOW COMPLEXITY [facility], [address] Xegjr074F3 7282172SBYoung [place], [address], [place] tel:[phone] Family Medicine F1 No Information 8 No Information EST-EXP PROB FOC/LOW COMPLEXITY [facility], [address]dtaz[address]K3 1108806XDNortheast [facility], [place], [place], [address], [place] tel:[phone] Family Medicine F1 No Information 8 No Information EST-DETAIL/M OD COMPLEXITY [facility], [address] Qrvoy[address]J1 4166467KV- [facility], [place], [place], [address], [place] tel:[phone] Family Medicine F1 No Information Nov-2 9200 8 No Information EST-EXP PROB FOC/LOW COMPLEXITY [facility], [address] [id number] 3300423MB- [facility], [place], [place], [address], [place] tel:[phone] Family Medicine F1 No Information Nov-1 7200 8 No Information EST-PROB FOC/STR FORWARD [facility], [address] Ed[address]A3 5861092TG- [place], [address], [place] tel:[phone] Family Medicine F1 No Information Sep-0 9200 8 No Information EST-EXP PROB FOC/LOW COMPLEXITY [facility], [address] [id number] 4305659HB- [place], [address], [place] tel:[phone] Family Medicine F1 No Information Sep-2 6200 8 No Information EST-EXP PROB FOC/LOW COMPLEXITY [facility], [id number] 3452908GS- [facility], [place], [place], [address], [place] tel:[phone] Family Medicine F1 No Information José Miguel-2 4200 8 No Information EST-EXP PROB FOC/LOW COMPLEXITY [facility], [address] [id number] 0764961HZ- [facility], [place], [place], [address], [place] tel:[phone] Family Medicine F1 No Information José Miguel-0 2-200 8 No Information EST-PROB FOC/STR FORWARD [facility], [address] Sfsyc[address]V6 6567343XD- [facility], [place], [place], [address], [place] tel:[phone] Family Medicine F1 No Information June-2 3-200 8 No Information EST-EXP PROB FOC/LOW COMPLEXITY [facility], [address] Ogtyw298X8 2939048RV- [facility], [facility], [place], [address], [place] tel:[phone] Family Medicine F1 No Information 8 No Information EST-EXP PROB FOC/LOW COMPLEXITY [facility], [address]zxyb862M8 4332348CB- [facility], [place], [place], [address], [place] tel:[phone] Family Medicine F1 No Information 8 No Information EST-PROB FOC/STR FORWARD [facility], [address] Xhjub982Z5 6652758XM- [facility], [place], [place], [address], [place] tel:[phone] Family Medicine F1 No Information 8 No Information EST-PROB FOC/STR FORWARD [facility], [address] Vjmls531W7 2387718ON- [facility], [place], [place], [address], [place] tel:[phone] Family Medicine F1 No Information 8 No Information EST-EXP PROB FOC/LOW COMPLEXITY [facility], [address] Txebp224P5 6385893WY- [facility], [place], [place], [address], [place] tel:[phone] Family Medicine F1 No Information 7 No Information Family History Family Member Type Diagnosis Age At Onset No Information Payers Payer name Insurance type Covered republican ID Ann-Marie bishop(jesus) M [place] Medicaid MC [id number] Social History Type Description Quantity Date Captured [...]
--- OUTSIDE RECORDS SUMMARY | 2023-12-10 04:00 | XMS_ITS ---
Author Organization [facility] Address [address] [place] [address] Support Name Relationship Address , Radha Crow Emergency Contact Unknown Unavailable Cyndi Baca Guarantor Unknown [phone] Care Team Providers Care Emergency Services Dispatcher Name Role Phone Adrienne CRAFT, Dr Knowles Primary Care Provider Mary Kate Malik Unavailable [phone] Hector Pearce Unavailable Unavailable Migration, Provider Unavailable Unavailable REASON FOR VISIT EMR-Ronn Encounters Encounter Location Date Provider Diagnosis Migrated_Facility 0 0 12/10/2023 Provider Migration Plan Of Treatment Medication Medication Name Sig Start Date Stop Date Notes HYDROcodone-Acetaminop hen 7.5-325 MG Oral Tablet 1 Tablet Every 6 Hours PRN not to exceed 4 tablets per day 08/10/2023 09/09/2023 *Reorder from [facility] an for eRx and Interaction Alerts* morphine 15 mg oral tablet extended release 1 Tablet three times a day 08/12/2023 09/11/2023 [facility]* Progress Notes * Cyndi BACA ADOB: 5 (58 yo F)Acc No.[id number]:12/10/2023 Patient: Elisha Cyndi DEL ROSARIO :1965 A ge:58 Y S ex:Female Address:[address] [place] [id number] * Refills Stop HYDROcodone-Acetaminophen 7.5-325 MG Oral Tablet, 1 Tablet Every 6 Hours PRN not to exceed 4 tablets per day Stop morphine 15 mg oral tablet extended release, 1 Tablet three times a day Subjective: * Chief Complaints: * E MR-Ronn * * Date:
--- OUTSIDE RECORDS SUMMARY | 2023-12-11 04:00 | XMS_ITS ---
Author Organization [facility] Address [address] [place] [address] Support Name Relationship Address , Radha Crow Emergency Contact Unknown Unavailable Cyndi Baca Guarantor Unknown [phone] Care Team Providers Care Branch Sales Manager Name Role Phone Adrienne CRAFT, Dr Knowles Primary Care Provider Mary Kate Malik Unavailable [phone] Hector Pearce Unavailable Unavailable Migration, Provider Unavailable [...] Cyndi BACA ADOB: [birth year] (58 yo F)Acc No.[id number]:12/11/2023 Patient: Elisha Cyndi DEL ROSARIO :1965 A ge:58 Y S ex:Female Address:[address] [place] [phone] Subjective: * Chief Complaints: * E Josefa [...]
[2024-10-27 20:36] VITALS: BP 108/65; PULSE 97; RESP 18; TEMP 36.8; O2SAT 94
--- OUTSIDE RECORDS SUMMARY | 2024-10-27 20:38 | XMS_ITS | Encounter Summary ---
Author Organization [facility] Address [address] [place] [address] Care Team Providers Care Eyeglass Frame Truer Name Role Phone Zack Gandara MD Primary Care Provider Encounter Details Date Type Department Care Team (Latest Contact Info) Description 06/04/2005 Outpatient Historical [facility] Family Medicine [address] [place] [address] Juancarlos Obrien MD NO ADDRESS ON FILE Lumbago (Primary Dx) Social History Tobacco Use Types Packs/Day Years Used Date Smoking Tobacco: Never Assessed Comments Unknown Sex and Gender Information Value Date Recorded Sex Assigned at Not on file Legal Sex 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
--- OUTSIDE RECORDS SUMMARY | 2024-10-27 20:38 | XMS_ITS | Encounter Summary ---
Author Organization [facility] Address [address] [place] [address] Care Team Providers Care Couture Alterations Dressmaker Name Role Phone Zack Gandara MD Primary Care Provider Encounter Details Date Type Department Care Team (Late st Contact Info) Description 02/07/2008 Emergency [facility] Emergency Department [address] 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
--- OUTSIDE RECORDS SUMMARY | 2024-10-27 20:38 | XMS_ITS | Encounter Summary ---
Author Organization [facility] Address [address] [place] [address] Care Team Providers Care Equipment Operation Instructor Name Role Phone Zack Gandara MD Primary Care Provider Encounter Details Date Type Department Care Team (Late st Contact Info) Description 01/12/2008 Emergency [facility] Emergency Department [address] 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 SCIENCE PROGRAM DIRECTOR Gender Identity Not on file Sexual Orientation Not on file documented as of this encounter Plan of Treatment Not on file documented as of this encounter Procedures Procedure Name Priority Date/Time Associated Diagnosis Comments XR HIP 2 OR 3 VIEWS RT Routine 8 5:29 PM ENVIRONMENTAL SCIENCE PROGRAM DIRECTOR XR KNEE 1 OR 2 VW RIGHT Routine 01/12/2008 3:39 PM ENVIRONMENTAL SCIENCE PROGRAM DIRECTOR BASIC METABOLIC PANEL PLUS Stat 01/12/2008 3:13 PM ENVIRONMENTAL SCIENCE PROGRAM DIRECTOR CBC WITH DIFFERENTIAL Stat 01/12/2008 3:13 PM ENVIRONMENTAL SCIENCE PROGRAM DIRECTOR SEDIMENTATION RATE Stat 01/12/2008 3: 13 PM ENVIRONMENTAL SCIENCE PROGRAM DIRECTOR C-REACTIVE PROTEIN Stat 01/12/2008 3: 13 PM ENVIRONMENTAL SCIENCE PROGRAM DIRECTOR BASIC METABOLIC PANEL Stat 01/12/2008 3:13 PM ENVIRONMENTAL SCIENCE PROGRAM DIRECTOR URINALYSIS W/REFLEX MICROSCOPIC Stat 01/12/2008 3:00 PM ENVIRONMENTAL SCIENCE PROGRAM DIRECTOR documented in this encounter Results * XR HIP 2+ VW RIGHT (01/12/2008 5:29 PM ENVIRONMENTAL SCIENCE PROGRAM DIRECTOR) Anatomical Region Laterality Modality Lower Extremity Right Other 01/12/2008 5:29 PM ENVIRONMENTAL SCIENCE PROGRAM DIRECTOR Narrative 01/12/2008 5:39 PM ENVIRONMENTAL SCIENCE PROGRAM DIRECTOR Two views of the right hip are [...] M.D. Date Signed: 01/12/08 JAW us Alba Salomn MD DIAGNOSTIC IMAGING ORDERABL ES Final Result * XR KNEE 1 OR 2 VW RIGHT (01/12/2008 3:39 PM ENVIRONMENTAL SCIENCE PROGRAM DIRECTOR) Anatomical Region Laterality Modality Lower Extremity Other 01/12/2008 3:39 PM ENVIRONMENTAL SCIENCE PROGRAM DIRECTOR Narrative 01/12/2008 5:12 PM ENVIRONMENTAL SCIENCE PROGRAM DIRECTOR Three views of the right knee are [...] BASIC METABOLIC PANEL PLUS (01/12/2008 3:13 PM ENVIRONMENTAL SCIENCE PROGRAM DIRECTOR) AST 16 8 - 33 U/L [facility] ALBUMIN 4.1 3.5 - 5.0 g/dL [facility] ALT 11 4 - 36 IU/L [facility] ALKALINE PHOSPHATASE 98 25 - 100 U/L [facility] BILIRUBIN TOTAL 0.1(L) 0.3 - 1.2 mg/dL [facility] TOTAL PROTEIN 7.1 6.3 - 8.2 g/dL [facility] Blood specimen (specimen) 01/12/2008 3:13 PM ENVIRONMENTAL SCIENCE PROGRAM DIRECTOR 01/12/2008 3:17 PM ENVIRONMENTAL SCIENCE PROGRAM DIRECTOR Tim Kelsey MD CHEMISTRY ORDERABLES Chichi l Result Performing Organization Address [facility] Phone Number INTERFACE SYSTEM Refer to clinic/hospital department [facility] CLIA# [id number] [address] [place] [address] * C-REACTIVE PROTEIN (01/12/2008 3:13 PM ENVIRONMENTAL SCIENCE PROGRAM DIRECTOR) CRP 0.38 0.00 - 1.00 mg/dL [facility] Blood specimen (specimen) 01/12/2008 3:13 PM ENVIRONMENTAL SCIENCE PROGRAM DIRECTOR 01/12/2008 3:17 PM ENVIRONMENTAL SCIENCE PROGRAM DIRECTOR Result [facility] Tim Kelsey MD CHEMISTRY ORDERABLES Edit ed Performing Organization Address [facility] Phone Number INTERFACE SYSTEM Refer to clinic/hospital department [facility] CLIA# [id number] [address] [place] [address] * (ABNORMAL) SEDIMENTATION RATE (01/12/2008 3:13 PM ENVIRONMENTAL SCIENCE PROGRAM DIRECTOR) ESR (SEDIMENTATION RATE) 37(H) 0 - 22 mm/hr [facility] Blood specimen (specimen) 01/12/2008 3:13 PM ENVIRONMENTAL SCIENCE PROGRAM DIRECTOR 01/12/2008 3:17 PM ENVIRONMENTAL SCIENCE PROGRAM DIRECTOR Tim Kelsey MD HEMATOLOGY ORDERABLES Fin al Result Performing Organization Address [facility] Phone Number INTERFACE SYSTEM Refer to clinic/hospital department [facility] CLIA# [id number] [address] [place] [address] * (ABNORMAL) BASIC METABOLIC PANEL (01/12/2008 3:13 PM ENVIRONMENTAL SCIENCE PROGRAM DIRECTOR) Pathologist [facility] CO2 24 22 - 32 mmol/l [facility] OSMOLALITY, CALCULATED 288 275 - 295 mOsm/Kg [facility] POTASSIUM 4.0 3.5 - 5.0 mEq/L [facility] CREATININE 0.7 0.7 - 1.2 mg/dL [facility] CALCIUM 9.4 8.4 - 10.5 mg/dL [facility] GLUCOSE 98 70 - 110 mg/dL [facility] Comment: Slight Lipemia. CHLORIDE 111(H) 95 - 110 mEq/L [facility] SODIUM 140 136 - 145 mEq/L [facility] ANION GAP 9 9 - 20 mEq/L [facility] BUN 13 7 - 17 mg/dL [facility] Blood specimen (specimen) 01/12/2008 3:13 PM ENVIRONMENTAL SCIENCE PROGRAM DIRECTOR 01/12/2008 3:17 PM ENVIRONMENTAL SCIENCE PROGRAM DIRECTOR us Tim Kelsey MD CHEMISTRY ORDERABLES Chichi conley Result INTERFACE SYSTEM Refer to clinic/hospital department [facility] CLIA# [id number] [address] [place] [address] * (ABNORMAL) CBC WITH DIFFERENTIAL (01/12/2008 3:13 PM ENVIRONMENTAL SCIENCE PROGRAM DIRECTOR) Pathologist [facility] BASOPHILS ABSOLUTE 0.1 0.0 - 0.2 K/ul [facility] HEMOGLOBIN 13.2 12.0 - 16.0 g/dL [facility] MONOCYTES 7.1 2.0 - 10.0 % [facility] RDW 13.1 11.0 - 14.5 % [facility] MONOCYTE ABSOLUTE 0.7(H) 0.1 - 0.6 K/ul [facility] WBC 10.2 4.5 - 11.0 K/ul [facility] NEUTROPHILS 50.0 42.2 - 75.2 % [facility] MCH 30.8 27.0 - 34.0 pg [facility] NEUTROPHIL ABSOLUTE 5.1 2.0 - 8.0 K/ul [facility] HEMATOCRIT 39.1 36.0 - 46.0 % [facility] PLATELETS 171 140 - 440 K/ul [facility] EOSINOPHIL ABSOLUTE 0.5 0.0 - 0.7 K/ul [facility] EOSINOPHILS 4.7 0.0 - 7.0 % [facility] RBC 4.29 4.20 - 5.40 Mil/ul [facility] MCHC 33.8 30.0 - 35.0 g/dL [facility] LYMPHOCYTE ABSOLUTE 3.8 1.2 - 4.0 K/ul [facility] LYMPHOCYTES 37.7 24.0 - 44.0 % [facility] MCV 91.1 84.0 - 103.0 Fl [facility] BASOPHILS 0.5 0.0 - 1.0 % [facility] MPV 10.3 8.9 - 12.8 Fl [facility] Blood specimen (specimen) 01/12/2008 3:13 PM ENVIRONMENTAL SCIENCE PROGRAM DIRECTOR 01/12/2008 3:17 PM ENVIRONMENTAL SCIENCE PROGRAM DIRECTOR Tim Kelsey MD HEMATOLOGY ORDERABLES Fin al Result Performing Organization Address City/State/[facility] Co de Phone Number INTERFACE SYSTEM Refer to clinic/hospital department [facility]# [id number] [address] [place] [id number] * (ABNORMAL) URINALYSIS (01/12/2008 3:00 PM ENVIRONMENTAL SCIENCE PROGRAM DIRECTOR) NITRITE UA NEGATIVE NEGATIVE [facility] UROBILINOGEN UA 0.2 0.2 [facility] CLARITY UA Clear Clear [facility] SPECIFIC GRAVITY UA >=1.030(A) <=1.005 [facility] GLUCOSE UA NEGATIVE NEGATIVE [facility] PH UA 5.5 5.0 - 9.0 [facility] BILIRUBIN UA NEGATIVE NEGATIVE [facility] LEUKOCYTE ESTERASE UA NEGATIVE NEGATIVE [facility] KETONES UA NEGATIVE NEGATIVE [facility] MICRO EXAM No No [facility] COLOR UA Yellow Straw [facility] PROTEIN UA NEGATIVE NEGATIVE [facility] BLOOD UA NEGATIVE NEGATIVE [facility] Urine specimen (specimen) 01/12/2008 3:00 PM ENVIRONMENTAL SCIENCE PROGRAM DIRECTOR 01/12/2008 3:00 PM ENVIRONMENTAL SCIENCE PROGRAM DIRECTOR us Tim Kelsey MD URINE ORDERABLES Final Re sult INTERFACE SYSTEM Refer to clinic/hospital department [facility] CLIA# [id number] [facility] [place] [address] documented in this encounter Visit Diagnoses Not on filedocumented in this encounter Care Teams Equipment Operation Instructor Relationship Specialty Start Date End Date Zack Gandara MD PCP - General Family Practice 01/23/19 03/19/19 documented as of this encounter
--- OUTSIDE RECORDS SUMMARY | 2024-10-27 20:38 | XMS_ITS | Encounter Summary ---
Author Organization [facility] Address [address] [place] [address] Care Team Providers Care Cage Shift Manager Name Role Phone Zack Gandara MD Primary Care Provider Encounter Details Date Type Department Care Team (Latest Contact Info) Description 04/14/2005 Outpatient Historical [facility] Family Medicine [address] [address] Juancarlos Obrien MD NO ADDRESS ON FILE BIPOLAR - MOST RECENTLY MANIC NOS (CMS/HCC) (Primary Dx); SACROILIITIS NEC Social History Tobacco Use Types Packs/Day Years Used Date Smoking Tobacco: Never Assessed Comments Unknown Sex and Gender Information Value Date Recorded Sex Assigned at Not on file Legal Sex Female 4:09 AM FIELD SALES ENGINEER Gender Identity Not on file Sexual Orientation Not on file documented as of this encounter Plan of Treatment Not on file documented as of this encounter Visit Diagnoses Diagnosis Bipolar I disorder, most recent episode (or current) manic, unspecified (CMS/HCC)- Primary Bipolar I disorder, most recent episode (or current) manic, unspecified Sacroiliitis, not elsewhere classified documented in this encounter Care Teams Cage Shift Manager Relationship Specialty Start Date End Date Zack Gandara MD PCP - General Family Practice 01/23/19 03/19/19 documented as of this encounter
--- OUTSIDE RECORDS SUMMARY | 2024-10-27 20:38 | XMS_ITS | Encounter Summary ---
Author Organization [facility] Address [address] [place] [address] Care Team Providers Care Furnace Reliner Name Role Phone Zack Gandara MD Primary Care Provider Encounter Details Date Type Department Care Team (Late st Contact Info) Description 01/02/2005 Emergency [facility] [address] [place] [address] Walter Rubio II, MD NO ADDRESS ON FILE Mosiés Nowak DO [address] [place] [id number] LUMBAGO (Primary Dx) Social History Tobacco Use Types Packs/Day Years Used Date Smoking Tobacco: Never Assessed Comments Unknown Sex and Gender Information Value Date Recorded Sex Assigned at Not on file Legal Sex Female 4:09 AM STOCKLAYER Gender Identity Not on file Sexual Orientation Not on file documented as of this encounter Plan of Treatment Not on file documented as of this encounter Visit Diagnoses Diagnosis Lumbago- Primary documented in this encounter Care Teams Furnace Reliner Relationship Specialty Start Date End Date Zack Gandara MD PCP - General Family Practice 01/23/19 03/19/19 documented as of this encounter
--- OUTSIDE RECORDS SUMMARY | 2024-10-27 20:38 | XMS_ITS | Encounter Summary ---
Author Organization [facility] Address [address] [place] [address] Care Team Providers Care Assistant Fitness Manager Name Role Phone Zack Gandara MD Primary Care Provider [phone] Encounter Details Date Type Department Care Team (Latest Contact Info) Description 04/27/2004 Outpatient Historical [facility] [place] [address] [place] [phone] Dheeraj Ayers MD NO ADDRESS ON FILE BACKACHE NOS (Primary Dx) Social History Tobacco Use Types Packs/Day Years Used Date Smoking Tobacco: Never Assessed Comments Unknown Sex and Gender Information Value Date Recorded Sex Assigned at Not on file Legal Sex Female 4:09 AM LINE HAUL DRIVER Gender Identity Not on file Sexual Orientation Not on file documented as of this encounter Plan of Treatment Not on file documented as of this encounter Visit Diagnoses Diagnosis Backache, unspecified- Primary documented in this encounter Care Teams Assistant Fitness Manager Relationship Specialty Start Date End Date Zack Gandara MD PCP - General Family Practice 01/23/19 03/19/19 documented as of this encounter
--- OUTSIDE RECORDS SUMMARY | 2024-10-27 20:38 | XMS_ITS | Encounter Summary ---
Author Organization [facility] Address [address] [place] [address] Care Team Providers Care Emergency Physician Name Role Phone Zack Gandara MD Primary Care Provider Encounter Details Date Type Department Care Team (Late st Contact Info) Description 01/28/2005 Emergency [facility] [address] [place] [address] Carito Proctor MD [address] [place] [address] Moisés Nowak DO [address] [facility] [address] [place] [address] LUMBAGO (Primary Dx); DISC DEGENERATION NOS Social History Tobacco Use Types Packs/Day Years Used Date Smoking Tobacco: Never Assessed Comments Unknown Sex and Gender Information Value Date Recorded Sex Assigned at Not on file Legal Sex Female 4:09 AM DATA REVIEW SPECIALIST Gender Identity Not on file Sexual Orientation Not on file documented as of this encounter Plan of Treatment Not on file documented as of this encounter Visit Diagnoses Diagnosis Lumbago- Primary Degeneration of intervertebral disc, site unspecified documented in this encounter Care Teams Emergency Physician Relationship Specialty Start Date End Date Zack Gandara MD PCP - General Family Practice 01/23/19 03/19/19 documented as of this encounter
--- OUTSIDE RECORDS SUMMARY | 2024-10-27 20:38 | XMS_ITS | Encounter Summary ---
Author Organization [facility] Address [address] [place] [address] Care Team Providers Care Chemical Project Engineer Name Role Phone Zack Gandara MD Primary Care Provider [phone] Encounter Details Date Type Department Care Team (Latest Contact Info) Description 06/11/2005 Outpatient Historical [facility] Family Medicine [address] [place] [address] Juancarlos Obrien MD NO ADDRESS ON FILE Lumbago (Primary Dx); Sprain Lumbar Region Social History Tobacco Use Types Packs/Day Years Used Date Smoking Tobacco: Never Assessed Comments Unknown Sex and Gender Information Value Date Recorded Sex Assigned at Not on file Legal Sex Female 4:09 AM SENIOR GAMEMASTER Gender Identity Not on file Sexual Orientation Not on file documented as of this encounter Plan of Treatment Not on file documented as of this encounter Visit Diagnoses Diagnosis Lumbago- Primary Sprain lumbar region Sprain of lumbar region documented in this encounter Care Teams Chemical Project Engineer Relationship Specialty Start Date End Date Zack Gandara MD PCP - General Family Practice 01/23/19 03/19/19 documented as of this encounter
--- OUTSIDE RECORDS SUMMARY | 2024-10-27 20:38 | XMS_ITS | Encounter Summary ---
Author Organization [facility] Address [address] [place] [address] Care Team Providers Care Melter Supervisor Name Role Phone Zack Gandara MD Primary Care Provider Encounter Details Date Type Department Care Team (Late st Contact Info) Description 10/18/2007 Outpatient Historical [facility] [address] [place] [address] AMBULANCE, [facility] Social History Tobacco Use Types Packs/Day Years Used Date Smoking Tobacco: Never Assessed Comments Unknown Sex and Gender Information Value Date Recorded Sex Assigned at Not on file Legal Sex Female 4:09 AM HOSPITAL HOUSEKEEPER Gender Identity Not on file Sexual Orientation Not on file documented as of this encounter Plan of Treatment Not on file documented as of this encounter Visit Diagnoses Not on filedocumented in this encounter Care Teams Melter Supervisor Relationship Specialty Start Date End Date Zack Gandara MD PCP - General Family Practice 01/23/19 03/19/19 documented as of this encounter
--- OUTSIDE RECORDS SUMMARY | 2024-10-27 20:38 | XMS_ITS | Clinical Summary ---
Author Organization [facility] Address [address] [place]: Epic Prelude ADT [place] [address] Care Team Providers Care Dietitian Teacher Name Role Phone Unavailable Primary Care Provider [...] Encounters Date Type Department Care Team Description 10/03/2024 External Device Data [facility] ABSTRACTION Provider, Abstract 09/19/2024 External Device Data [facility] ABSTRACTION Provider, Abstract 08/01/2024 External Device Data [facility] ABSTRACTION Provider, Abstract 07/31/2024 External Device Data [facility] ABSTRACTION Provider, Abstract 07/31/2024 External Device Data [facility] ABSTRACTION Provider, Abstract from Last 3 Months Immunizations Immunization Administration [...] on file Legal Sex Female 9:30 AM SUPERVISOR SLATE SPLITTING Gender Identity Not on file Sexual Orientation [...] (#1) 2024 9, 2013, 12/20/1995 Insurance [place]ICAID [place]
--- OUTSIDE RECORDS SUMMARY | 2024-10-27 20:38 | XMS_ITS | Encounter Summary ---
Author Organization [facility] Address [address] [place] [address] Care Team Providers Care Core Drill Operator Helper Name Role Phone Zack Gandara MD Primary Care Provider [phone] Encounter Details Date Type Department Care Team (Late st Contact Info) Description 07/05/2005 Outpatient Historical [facility] Family Medicine [address] [place] [address] [place] [address] Paola Waters PA [address] [place] [address] Routine Gynecological Examination (Primary Dx) Social History Tobacco Use Types Packs/Day Years Used Date Smoking Tobacco: Never Assessed Comments Unknown Sex and Gender Information Value Date Recorded Sex Assigned at Not on file Legal Sex Female 4:09 AM TECHNOLOGY ASSISTANT Gender Identity Not on file Sexual Orientation Not on file documented as of this encounter Plan of Treatment Not on file documented as of this encounter Visit Diagnoses Diagnosis Routine gynecological examination- Primary documented in this encounter Care Teams Core Drill Operator Helper Relationship Specialty Start Date End Date Zack Gandara MD PCP - General Family Practice 01/23/19 03/19/19 documented as of this encounter
--- OUTSIDE RECORDS SUMMARY | 2024-10-27 20:38 | XMS_ITS | Encounter Summary ---
Author Organization [facility] Address [address] [place] [address] Care Team Providers Care Retail Inventory Control Clerk Name Role Phone Zack Gandara MD Primary Care Provider [phone] Encounter Details Date Type Department Care Team (Late st Contact Info) Description 11/12/2007 Emergency Emergency Department [address] [place] [address] Ed, Physician NO ADDRESS ON [...] on file Legal Sex Female 4:09 AM FORM TAMPER Gender Identity Not on file Sexual Orientation [...] agent documented in this encounter Care Teams Retail Inventory Control Clerk Relationship Specialty Start Date End Date Zack Gandara MD PCP - General Family Practice 01/23/19 03/19/19 documented as of this encounter
--- OUTSIDE RECORDS SUMMARY | 2024-10-27 20:38 | XMS_ITS | Encounter Summary ---
Author Organization [facility] Address [address] [place] [address] Care Team Providers Care Manager Therapy Name Role Phone Zack Gandara MD Primary Care Provider [phone] Encounter Details Date Type Department Care Team (Latest Contact Info) Description 06/29/2005 Outpatient Historical [facility] [address] [address] Juancarlos Obrien MD NO ADDRESS ON FILE Other Malaise and Fatigue (Primary Dx); Dyspareunia; Unspecified Sleep Apnea; Unspecified Constipation Social History Tobacco Use Types Packs/Day Years Used Date Smoking Tobacco: Never Assessed Comments Unknown Sex and Gender Information Value Date Recorded Sex Assigned at Not on file Legal Sex Female 4:09 AM EXPERIMENTAL MECHANIC SPACECRAFT Gender Identity Not on file Sexual Orientation Not on file documented as of this encounter Plan of Treatment Not on file documented as of this encounter Visit Diagnoses Diagnosis Other malaise and fatigue- Primary Dyspareunia Unspecified sleep apnea Unspecified constipation documented in this encounter Care Teams Manager Therapy Relationship Specialty Start Date End Date Zack Gandara MD PCP - General Family Practice 01/23/19 03/19/19 documented as of this encounter
--- OUTSIDE RECORDS SUMMARY | 2024-10-27 20:38 | XMS_ITS | Encounter Summary ---
Author Organization [facility] Address [address] [place] [address] Care Team Providers Care Regional Sales Consultant Name Role Phone Zack Gandara MD Primary Care Provider Encounter Details Date Type Department Care Team (Late st Contact Info) Description 02/06/2005 Emergency [facility] [address] [place] [address] Phu Mir MD NO ADDRESS ON FILE Conversion, History NO ADDRESS ON FILE ANXIETY STATE NOS (Primary Dx); HEADACHE Social History Tobacco Use Types Packs/Day Years Used Date Smoking Tobacco: Never Assessed Comments Unknown Sex and Gender Information Value Date Recorded Sex Assigned at Not on file Legal Sex Female 4:09 AM DEVELOPMENT REP Gender Identity Not on file Sexual Orientation Not on file documented as of this encounter Plan of Treatment Not on file documented as of this encounter Visit Diagnoses Diagnosis Anxiety state, unspecified- Primary Headache(784.0) Headache documented in this encounter Care Teams Regional Sales Consultant Relationship Specialty Start Date End Date Zack Gandara MD PCP - General Family Practice 01/23/19 03/19/19 documented as of this encounter
--- OUTSIDE RECORDS SUMMARY | 2024-10-27 20:38 | XMS_ITS | Encounter Summary ---
Author Organization [facility] Address [address] [place] [address] Care Team Providers Care Job Training Supervisor Name Role Phone Zack Gandara MD Primary Care Provider Encounter Details Date Type Department Care Team (Late st Contact Info) Description 01/09/[address] [facility] Emergency Department [address] [place] [address] Ed, Physician NO ADDRESS ON FILE Michelle Hanna MD [address] [place] [address] Social History Tobacco Use Types Packs/Day Years Used Date Smoking Tobacco: Every Day Cigarettes 1 15 Alcohol Use Standard Drinks/Week Comments No 0 (1 standard drink = 0.6 oz pur e alcohol) Comments No Sex and Gender Information Value Date Recorded Sex Assigned at Not on file Legal Sex Female 4:09 AM DATA ARCHITECT Gender Identity Not on file Sexual Orientation Not on file documented as of this encounter Plan of Treatment Not on file documented as of this encounter Visit Diagnoses Not on filedocumented in this encounter Care Teams Job Training Supervisor Relationship Specialty Start Date End Date Zack Gandara MD PCP - General Family Practice 01/23/19 03/19/19 documented as of this encounter
--- OUTSIDE RECORDS SUMMARY | 2024-10-27 20:38 | XMS_ITS | Encounter Summary ---
Author Organization [facility] Address [address] [place] [address] Care Team Providers Care Mining Consultant Name Role Phone Zack Gandara MD Primary Care Provider [phone]- [phone] Encounter Details Date Type Department Care Team (Latest Contact Info) Description 05/14/2005 Outpatient Historical [facility] Medicine [address] [address] Juancarlos Obrien MD NO ADDRESS ON FILE Lumbago (Primary Dx); Bipolar Disorder, Unspecified (CMS/HCC) Social History Tobacco Use Types Packs/Day Years Used Date Smoking Tobacco: Never Assessed Comments Unknown Sex and Gender Information Value Date Recorded Sex Assigned at Not on file Legal Sex Female 4:09 AM CLASSIFIED ADVERTISING SUPERVISOR Gender Identity Not on file Sexual Orientation Not on file documented as of this encounter Plan of Treatment Not on file documented as of this encounter Visit Diagnoses Diagnosis Lumbago- Primary Bipolar disorder, unspecified (CMS/HCC) Bipolar disorder, unspecified documented in this encounter Care Teams Mining Consultant Relationship Specialty Start Date End Date Zack Gandara MD PCP - General Family Practice 01/23/19 03/19/19 documented as of this encounter
--- OUTSIDE RECORDS SUMMARY | 2024-10-27 20:38 | XMS_ITS | Encounter Summary ---
Author Organization [facility] Address [address] [place] [address] Care Team Providers Care Ladler Name Role Phone Zack Gandara MD Primary Care Provider Encounter Details Date Type Department Care Team (Late st Contact Info) Description 02/19/2005 Emergency [facility] [address] [place] [address] Carito Proctor MD [address] [place] [address] Conversion, History NO ADDRESS ON FILE BRONCHITIS NOS (Primary Dx); BACKACHE NOS Social History Tobacco Use Types Packs/Day Years Used Date Smoking Tobacco: Never Assessed Comments Unknown Sex and Gender Information Value Date Recorded Sex Assigned at Not on file Legal Sex Female 4:09 AM BUCKLE ATTACHING MACHINE OPERATOR Gender Identity Not on file Sexual Orientation Not on file documented as of this encounter Plan of Treatment Not on file documented as of this encounter Visit Diagnoses Diagnosis Bronchitis, not specified as acute or chronic- Primary Backache, unspecified documented in this encounter Care Teams Ladler Relationship Specialty Start Date End Date Zack Gandara MD PCP - General Family Practice 01/23/19 03/19/19 documented as of this encounter
--- OUTSIDE RECORDS SUMMARY | 2024-10-27 20:38 | XMS_ITS | Encounter Summary ---
Author Organization [facility] Address [address] [place] [address] Care Team Providers Care Fish Receiver Name Role Phone Zack Gandara MD Primary Care Provider Encounter Details Date Type Department Care Team (Latest Contact Info) Description 04/13/2004 Outpatient Historical [facility] Urgent [address] [place] [address] Gerry Watson MD [address] [facility] [address] [place] [address] INFEC OTITIS EXTERNA NOS (Primary Dx) Social History Tobacco Use Types Packs/Day Years Used Date Smoking Tobacco: Never Assessed Comments Unknown Sex and Gender Information Value Date Recorded Sex Assigned at Not on file Legal Sex Female 4:09 AM JOINTER MACHINE Gender Identity Not on file Sexual Orientation Not on file documented as of this encounter Plan of Treatment Not on file documented as of this encounter Visit Diagnoses Diagnosis Infective otitis externa, unspecified- Primary documented in this encounter Care Teams Fish Receiver Relationship Specialty Start Date End Date Zack Gandara MD PCP - General Family Practice 01/23/19 03/19/19 documented as of this encounter
--- OUTSIDE RECORDS SUMMARY | 2024-10-27 20:38 | XMS_ITS | Encounter Summary ---
Author Organization [facility] Address [address] [place] [address] Care Team Providers Care Survey Research Manager Name Role Phone Zack Gandara MD Primary Care Provider Encounter Details Date Type Department Care Team (Latest Contact Info) Description 07/05/2007 Outpatient Historical [facility] Endoscopy Francoise [address] [place] [phone] Kirill Kinney MD [address] [facility] [address] [place] [phone] Irritable Bowel Syndrome; Unspecified Sleep Apnea; Tobacco Use Disorder Social History Tobacco Use Types Packs/Day Years Used Date Smoking Tobacco: Never Assessed Comments Unknown Sex and Gender Information Value Date Recorded Sex Assigned at Not on file Legal Sex Female 4:09 AM EVENT PROMOTIONS COORDINATOR Gender Identity Not on file Sexual Orientation Not on file documented as of this encounter Plan of Treatment Not on file documented as of this encounter Procedures Procedure Name Priority Date/Time Associated Diagnosis Comments PATHOLOGY Routine 07/06/2007 8:29 AM CDT documented in this encounter Results * PATHOLOGY (07/06/2007 8:29 AM CDT) PATHOLOGY/CYT OLOGY REPORT [facility] Anatomic Pathology Dept [address] [facility] [address] Patient: CYNDI BACA Accn No: [id number] Collected: 07/06/2007 8:29:00 AM SURGICAL PATHOLOGY FINAL [...] disorder documented in this encounter Care Teams Survey Research Manager Relationship Specialty Start Date End Date Zack Gandara MD PCP - General Family Practice 01/23/19 03/19/19 documented as of this encounter
--- OUTSIDE RECORDS SUMMARY | 2024-10-27 20:38 | XMS_ITS | Encounter Summary ---
Author Organization [facility] Address [address] [place] [address] Care Team Providers Care Associate Director Finance Name Role Phone Zack Gandara MD Primary Care Provider Encounter Details Date Type Department Care Team (Late st Contact Info) Description 08/30/2004 Emergency [facility] [address] [place] [address] Gian Downey MD NO ADDRESS ON FILE David Mendoza MD NO ADDRESS ON FILE VOMITING ALONE (Primary Dx); DIARRHEA NOS Social History Tobacco Use Types Packs/Day Years Used Date Smoking Tobacco: Never Assessed Comments Unknown Sex and Gender Information Value Date Recorded Sex Assigned at Not on file Legal Sex Female 4:09 AM HOOP RIVETING MACHINE OPERATOR HELPER Gender Identity Not on file Sexual Orientation Not on file documented as of this encounter Plan of Treatment Not on file documented as of this encounter Visit Diagnoses Diagnosis Vomiting alone- Primary Diarrhea documented in this encounter Care Teams Associate Director Finance Relationship Specialty Start Date End Date Zack Gandara MD PCP - General Family Practice 01/23/19 03/19/19 documented as of this encounter
--- OUTSIDE RECORDS SUMMARY | 2024-10-27 20:38 | XMS_ITS | Encounter Summary ---
Author Organization [facility] Address [address] [place] [address] Care Team Providers Care Splitter Operator Name Role Phone Zack Gandara MD Primary Care Provider +1- [phone] Encounter Details Date Type Department Care Team (Latest Contact Info) Description 04/27/2004 Outpatient Historical [facility] Pain [facility] [address] [place] [address] Dheeraj Ayers MD NO ADDRESS ON FILE Lumbar disc displacement (Primary Dx) Social History Tobacco Use Types Packs/Day Years Used Date Smoking Tobacco: Never Assessed Comments Unknown Sex and Gender Information Value Date Recorded Sex Assigned at Not on file Legal Sex Female 4:09 AM BRIDGE OPERATOR Gender Identity Not on file Sexual Orientation Not on file documented as of this encounter Plan of Treatment Not on file documented as of this encounter Visit Diagnoses Diagnosis Lumbar disc displacement- Primary Displacement of lumbar intervertebral disc without myelopathy documented in this encounter Care Teams Splitter Operator Relationship Specialty Start Date End Date Zack Gandara MD PCP - General Family Practice 01/23/19 03/19/19 documented as of this encounter
--- OUTSIDE RECORDS SUMMARY | 2024-10-27 20:38 | XMS_ITS | Encounter Summary ---
Author Organization [facility] Address [address] [place] [address] Care Team Providers Care Middleware Consultant Name Role Phone Zack Gandara MD Primary Care Provider Encounter Details Date Type Department Care Team (Late st Contact Info) Description 10/07/2007 Emergency [facility] [address] [place] [phone] Ed, Physician NO ADDRESS ON FILE Sabino [...] on file Legal Sex Female 4:09 AM CUTTER IN Gender Identity Not on file Sexual Orientation [...] * CARDIAC ENZYMES (10/07/2007 2:00 PM CDT) [facility] CKMB 0.3 0.0 - 5.0 ng/mL [facility] TROPONIN I <0.1 0.0 - 1.3 ng/mL [facility] Blood specimen (specimen) 10/07/2007 2:00 PM CDT 10/07/2007 2:06 PM CDT Sabino Lai Jr., DO CHEMISTRY ORDERABLES Chichi conley Result INTERFACE SYSTEM Refer to clinic/hospital department [facility] CLIA# [id number] [address] [place] [address] * (ABNORMAL) CBC WITH DIFFERENTIAL (10/07/2007 2:00 PM CDT) [facility] LYMPHOCYTE ABSOLUTE 3.9 1.2 - 4.0 K/ul [facility] MCV 93.3 84.0 - 103.0 Fl [facility] MPV 10.1 8.9 - 12.8 Fl [facility] BASOPHILS ABSOLUTE 0.0 0.0 - 0.2 K/ul [facility] BASOPHILS 0.3 0.0 - 1.0 % [facility] HEMOGLOBIN 13.2 12.0 - 16.0 g/dL [facility] RDW 13.5 11.0 - 14.5 % [facility] MONOCYTE ABSOLUTE 1.0(H) 0.1 - 0.6 K/ul [facility] MONOCYTES 10.0 2.0 - 10.0 % [facility] WBC 10.5 4.5 - 11.0 K/ul [facility] MCH 30.3 27.0 - 34.0 pg [facility] NEUTROPHIL ABSOLUTE 5.1 2.0 - 8.0 K/ul [facility] NEUTROPHILS 48.7 42.2 - 75.2 % [facility] HEMATOCRIT 40.6 36.0 - 46.0 % [facility] EOSINOPHILS 4.0 0.0 - 7.0 % [facility] PLATELETS 177 140 - 440 K/ul [facility] EOSINOPHIL ABSOLUTE 0.4 0.0 - 0.7 K/ul [facility] RBC 4.35 4.20 - 5.40 Mil/ul [facility] MCHC 32.5 30.0 - 35.0 g/dL [facility] LYMPHOCYTES 37.0 24.0 - 44.0 % [facility] Blood specimen (specimen) 10/07/2007 2:00 PM CDT 10/07/2007 2:06 PM CDT us Sabino Lai Jr., DO HEMATOLOGY ORDERABLES Fin al Result Performing Organization Address City/State/[facility] Co de Phone Number INTERFACE SYSTEM Refer to clinic/hospital department [facility] CLIA# [id number] [address] [place] [address] * D-DIMER (10/07/2007 2:00 PM CDT) [facility] D-DIMER QUANT 0.5 0.0 - 0.5 mcg/mL [facility] Comment: Testing performed using the STA [...] ORDERABLES Fin al Result Performing Organization Address [facility] Phone Number INTERFACE SYSTEM Refer to clinic/hospital department [facility] CLIA# [id number] [address] [place] [address] * (ABNORMAL) BASIC METABOLIC PANEL (10/07/2007 2:00 PM CDT) BUN 10 7 - 17 mg/dL [facility] CO2 27 22 - 32 mmol/l [facility] POTASSIUM 3.9 3.5 - 5.0 mEq/L [facility] OSMOLALITY, CALCULATED 287 275 - 295 mOsm/Kg [facility] CREATININE 0.6(L) 0.7 - 1.2 mg/dL [facility] CALCIUM 9.6 8.4 - 10.5 mg/dL [facility] GLUCOSE 104 70 - 110 mg/dL [facility] CHLORIDE 109 95 - 110 mEq/L [facility] ANION GAP 8(L) 9 - 20 mEq/L [facility] SODIUM 140 136 - 145 mEq/L [facility] Blood specimen (specimen) 10/07/2007 2:00 PM CDT 10/07/2007 2:06 PM CDT Sabino Lai Jr., DO CHEMISTRY ORDERABLES Chichi l Result Performing Organization Address [facility] Phone Number INTERFACE SYSTEM Refer to clinic/hospital department [facility] CLIA# [id number] [facility] [place] [address] * XR CHEST PA AND LATERAL (10/07/2007 [...] agent documented in this encounter Care Teams Middleware Consultant Relationship Specialty Start Date End Date Zack Gandara MD PCP - General Family Practice 01/23/19 03/19/19 documented as of this encounter
--- OUTSIDE RECORDS SUMMARY | 2024-10-27 20:38 | XMS_ITS | Encounter Summary ---
Author Organization [facility] Address [address] [place] [address] Care Team Providers Care Religious Education Coordinator Name Role Phone Zack Gandara MD Primary Care Provider [phone]- [phone] Encounter Details Date Type Department Care Team (Late st Contact Info) Description 04/30/2004 Outpatient Historical [facility] Medicine- [facility] [address] [place] [address] David Mendoza MD NO ADDRESS ON FILE LUMBAGO (Primary Dx); OBESITY NOS Social History Tobacco Use Types Packs/Day Years Used Date Smoking Tobacco: Never Assessed Comments Unknown Sex and Gender Information Value Date Recorded Sex Assigned at Not on file Legal Sex Female 4:09 AM DUCO POLISHER Gender Identity Not on file Sexual Orientation Not on file documented as of this encounter Plan of Treatment Not on file documented as of this encounter Visit Diagnoses Diagnosis Lumbago- Primary Obesity, unspecified documented in this encounter Care Teams Religious Education Coordinator Relationship Specialty Start Date End Date Zack Gandara MD PCP - General Family Practice 01/23/19 03/19/19 documented as of this encounter
--- OUTSIDE RECORDS SUMMARY | 2024-10-27 20:38 | XMS_ITS | Encounter Summary ---
Author Organization [facility] Address [address] [place] [address] Care Team Providers Care Window Repairer Name Role Phone Zack Gandara MD Primary Care Provider [phone] Encounter Details Date Type Department Care Team (Late st Contact Info) Description 11/23/2007 Outpatient Historical [facility] Cardiovascular Services [address] [place] [phone] Vinicio Nunez MD [address] [facility] [address] [place] [address] Social History Tobacco Use Types Packs/Day Years Used Date Smoking Tobacco: Never Assessed Comments Unknown Sex and Gender Information Value Date Recorded Sex Assigned at Not on file Legal Sex Female 4:09 AM FOREIGN EXCHANGE DEALER Gender Identity Not on file Sexual Orientation Not on file documented as of this encounter Plan of Treatment Not on file documented as of this encounter Visit Diagnoses Not on filedocumented in this encounter Care Teams Window Repairer Relationship Specialty Start Date End Date Zack Gandara MD PCP - General Family Practice 01/23/19 03/19/19 documented as of this encounter
--- OUTSIDE RECORDS SUMMARY | 2024-10-27 20:38 | XMS_ITS | Encounter Summary ---
Author Organization [facility] Address [address] [place] [address] Care Team Providers Care Technical Laboratory Asst Name Role Phone Zack Gandara MD Primary Care Provider [phone] Encounter Details Date Type Department Care Team (Late st Contact Info) Description [address] [facility] Emergency Department [address] [place] [address] Ed, Physician NO ADDRESS ON FILE Taras Kaur, OTA [address] [place] [address] Other Chronic Pain; Lumbago; Bipolar [...] on file Legal Sex Female 4:09 AM GRINDER WATCH PARTS Gender Identity Not on file Sexual Orientation [...] Butler M.D. Date Signed: 11/08/07 Taras Kaur OTA DIAGNOSTIC IMAGING ORDERABLES Final Result documented in this encounter Visit Diagnoses Diagnosis Other chronic pain Lumbago Bipolar disorder, unspecified ([facility]) Bipolar disorder, unspecified Tobacco use disorder Acquired [...] places documented in this encounter Care Teams Technical Laboratory Asst Relationship Specialty Start Date End Date Zack Gandara MD PCP - General Family Practice 01/23/19 03/19/19 documented as of this encounter
--- OUTSIDE RECORDS SUMMARY | 2024-10-27 20:38 | XMS_ITS | Encounter Summary ---
Author Organization [facility] Address [address] [place] [address] Care Team Providers Care Mate First Name Role Phone Zack Gandara MD Primary Care Provider Encounter Details Date Type Department Care Team (Late st Contact Info) Description 06/05/2004 Outpatient Historical [facility] Medicine- [facility] [address] [place] [address] David Mendoza MD NO ADDRESS ON FILE MIGRAINE NOS W/O MENTN INTRACTABLE (Primary Dx); DRUG ABUSE NEC-CONTIN Social History Tobacco Use Types Packs/Day Years Used Date Smoking Tobacco: Never Assessed Comments Unknown Sex and Gender Information Value Date Recorded Sex Assigned at Not on file Legal Sex Female 4:09 AM EVENT HOST Gender Identity Not on file Sexual Orientation Not on file documented as of this encounter Plan of Treatment Not on file documented as of this encounter Visit Diagnoses Diagnosis Migraine, unspecified, without mention of intractable migraine without mention of status migrainosus- Primary Other, mixed, or unspecified nondependent drug abuse, continuous documented in this encounter Care Teams Mate First Relationship Specialty Start Date End Date Zack Gandara MD PCP - General Family Practice 01/23/19 03/19/19 documented as of this encounter
--- OUTSIDE RECORDS SUMMARY | 2024-10-27 20:38 | XMS_ITS | Encounter Summary ---
Author Organization [facility] Address [address] [place] [address] Care Team Providers Care Bakery Machine Mechanic Name Role Phone Zack Gandara MD Primary Care Provider Encounter Details Date Type Department Care Team (Late st Contact Info) Description 02/10/2008 Emergency [facility] Emergency Department [address] [place] [address] Ed, Physician NO ADDRESS ON FILE Taras Kaur, LEVI MAKER [address] [place] [address] Other Chronic Pain; Bipolar Disorder, [...] on file Legal Sex Female 4:09 AM ACCOUNTS SUPERVISOR Gender Identity Not on file Sexual [...] agent documented in this encounter Care Teams Bakery Machine Mechanic Relationship Specialty Start Date End Date Zack Gandara MD PCP - General Family Practice 01/23/19 03/19/19 documented as of this encounter
--- OUTSIDE RECORDS SUMMARY | 2024-10-27 20:38 | XMS_ITS | Encounter Summary ---
Author Organization [facility] Address [address] [place] [address] Care Team Providers Care Address Change Clerk Name Role Phone Zack Gandara MD Primary Care Provider Encounter Details Date Type Department Care Team (Late st Contact Info) Description 03/22/2004 Emergency [facility] Emergency Department [address] [place] [phone] Geovany Sy MD NO ADDRESS ON FILE SPRAIN LUMBAR REGION (Primary Dx) Social History Tobacco Use Types Packs/Day Years Used Date Smoking Tobacco: Never Assessed Comments Unknown Sex and Gender Information Value Date Recorded Sex Assigned at Not on file Legal Sex Female 4:09 AM TURN DOWN MAN Gender Identity Not on file Sexual Orientation Not on file documented as of this encounter Plan of Treatment Not on file documented as of this encounter Visit Diagnoses Diagnosis Sprain of lumbar region- Primary documented in this encounter Care Teams Address Change Clerk Relationship Specialty Start Date End Date Zack Gandara MD PCP - General Family Practice 01/23/19 03/19/19 documented as of this encounter
--- OUTSIDE RECORDS SUMMARY | 2024-10-27 20:38 | XMS_ITS | Encounter Summary ---
Author Organization [facility] Address [address] [place] [address] Care Team Providers Care Hat Blocker Name Role Phone Zack Gandara MD Primary Care Provider Encounter Details Date Type Department Care Team (Late st Contact Info) Description 12/20/2004 Emergency [facility] [address] [place] [address] Carl Huang, [address] [place], [place] [id number] Moisés Nowak DO [address] [phone] LUMBAGO (Primary Dx) Social History Tobacco Use Types Packs/Day Years Used Date Smoking Tobacco: Never Assessed Comments Unknown Sex and Gender Information Value Date Recorded Sex Assigned at Not on file Legal Sex Female 4:09 AM MENTAL HEALTH WORKER Gender Identity Not on file Sexual Orientation Not on file documented as of this encounter Plan of Treatment Not on file documented as of this encounter Visit Diagnoses Diagnosis Lumbago- Primary documented in this encounter Care Teams Hat Blocker Relationship Specialty Start Date End Date Zack Gandara MD PCP - General Family Practice 01/23/19 03/19/19 documented as of this encounter
--- OUTSIDE RECORDS SUMMARY | 2024-10-27 20:38 | XMS_ITS | Encounter Summary ---
Author Organization [facility] Address [address] [place] [address] Care Team Providers Care Furnace Combustion Tester Name Role Phone Zack Gandara MD Primary Care Provider [phone] Encounter Details Date Type Department Care Team (Latest Contact Info) Description 03/31/2005 Outpatient Historical [facility] Family Medicine [address] [address] Juancarlos Obrien MD NO ADDRESS ON FILE ACUTE SINUSITIS NOS (Primary Dx); OTITIS MEDIA NOS; BIPOLAR - MOST RECENTLY MANIC NOS ([facility]) Social History Tobacco Use Types Packs/Day Years Used Date Smoking Tobacco: Never Assessed Comments Unknown Sex and Gender Information Value Date Recorded Sex Assigned at Not on file Legal Sex Female 4:09 AM UNIVERSITY SERVICES PROGRAM ASSOCIATE Gender Identity Not on file Sexual Orientation Not on file documented as of this encounter Plan of Treatment Not on file documented as of this encounter Visit Diagnoses Diagnosis Acute sinusitis, unspecified- Primary Unspecified otitis media Bipolar I disorder, most recent episode (or current) manic, unspecified (CMS/HCC) Bipolar I disorder, most recent episode (or current) manic, unspecified documented in this encounter Care Teams Furnace Combustion Tester Relationship Specialty Start Date End Date Zack Gandara MD PCP - General Family Practice 01/23/19 03/19/19 documented as of this encounter
--- OUTSIDE RECORDS SUMMARY | 2024-10-27 20:38 | XMS_ITS | Encounter Summary ---
Author Organization [facility] Address [address] [place] [address] Care Team Providers Care Brusher Warp Name Role Phone Zack Gandara MD Primary Care Provider Encounter Details Date Type Department Care Team (Latest Contact Info) Description 08/31/2005 Outpatient Historical [facility] Medicine [address] [place] [address] Juancarlos Obrien MD NO ADDRESS ON FILE Sprain of Neck (Primary Dx); Sprain Thoracic Region Social History Tobacco Use Types Packs/Day Years Used Date Smoking Tobacco: Never Assessed Comments Unknown Sex and Gender Information Value Date Recorded Sex Assigned at Not on file Legal Sex Female 4:09 AM WATER HAULER Gender Identity Not on file Sexual Orientation Not on file documented as of this encounter Plan of Treatment Not on file documented as of this encounter Visit Diagnoses Diagnosis Sprain of neck- Primary Neck sprain and strain Sprain thoracic region Sprain of thoracic region documented in this encounter Care Teams Brusher Warp Relationship Specialty Start Date End Date Zack Gandara MD PCP - General Family Practice 01/23/19 03/19/19 documented as of this encounter
--- OUTSIDE RECORDS SUMMARY | 2024-10-27 20:38 | XMS_ITS | Encounter Summary ---
Author Organization [facility] Address [address] [place] [address] Care Team Providers Care Director Of Publications Name Role Phone Zack Gandara MD Primary Care Provider +1- [phone] Encounter Details Date Type Department Care Team (Late st Contact Info) Description 05/14/2004 Outpatient Historical [facility] Medicine- [facility] [address] [place] [address] David Mendoza MD NO ADDRESS ON FILE LUMBAGO (Primary Dx); OBESITY NOS Social History Tobacco Use Types Packs/Day Years Used Date Smoking Tobacco: Never Assessed Comments Unknown Sex and Gender Information Value Date Recorded Sex Assigned at Not on file Legal Sex Female 4:09 AM GETTER WELDER Gender Identity Not on file Sexual Orientation Not on file documented as of this encounter Plan of Treatment Not on file documented as of this encounter Visit Diagnoses Diagnosis Lumbago- Primary Obesity, unspecified documented in this encounter Care Teams Director Of Publications Relationship Specialty Start Date End Date Zack Gandara MD PCP - General Family Practice 01/23/19 03/19/19 documented as of this encounter
--- OUTSIDE RECORDS SUMMARY | 2024-10-27 20:38 | XMS_ITS | Encounter Summary ---
Author Organization [facility] Address [address] [place] [address] Care Team Providers Care Prefitter Doors Name Role Phone Zack Gandara MD Primary Care Provider Encounter Details Date Type Department Care Team (Latest Contact Info) Description 03/24/2004 Outpatient Historical [facility] Internal Medicine and Pediatrics-[address] [place] [address] Karina Garibay MD NO ADDRESS ON FILE LUMBAGO (Primary Dx) Social History Tobacco Use Types Packs/Day Years Used Date Smoking Tobacco: Never Assessed Comments Unknown Sex and Gender Information Value Date Recorded Sex Assigned at Not on file Legal Sex Female 4:09 AM WHEAT FARMER Gender Identity Not on file Sexual Orientation Not on file documented as of this encounter Plan of Treatment Not on file documented as of this encounter Visit Diagnoses Diagnosis Lumbago- Primary documented in this encounter Care Teams Prefitter Doors Relationship Specialty Start Date End Date Zack Gandara MD PCP - General Family Practice 01/23/19 03/19/19 documented as of this encounter
--- OUTSIDE RECORDS SUMMARY | 2024-10-27 20:38 | XMS_ITS | Encounter Summary ---
Author Organization [facility] Address [address] [place] [address] Care Team Providers Care Tire Man Name Role Phone Zack Gandara MD Primary Care Provider Encounter Details Date Type Department Care Team (Latest Contact Info) Description 05/03/2005 Outpatient Historical [facility] Medicine [address] [place] [address] Juancarlos Obrien MD NO ADDRESS ON FILE Lumbago (Primary Dx); Bipolar Affective, Manic, Unspec (CMS/HCC) Social History Tobacco Use Types Packs/Day Years Used Date Smoking Tobacco: Never Assessed Comments Unknown Sex and Gender Information Value Date Recorded Sex Assigned at Not on file Legal Sex Female 4:09 AM BUN MACHINE OPERATOR Gender Identity Not on file Sexual Orientation Not on file documented as of this encounter Plan of Treatment Not on file documented as of this encounter Visit Diagnoses Diagnosis Lumbago- Primary Bipolar I disorder, most recent episode (or current) manic, unspecified (CMS/HCC) Bipolar I disorder, most recent episode (or current) manic, unspecified documented in this encounter Care Teams Tire Man Relationship Specialty Start Date End Date Zack Gandara MD PCP - General Family Practice 01/23/19 03/19/19 documented as of this encounter
--- OUTSIDE RECORDS SUMMARY | 2024-10-27 20:38 | XMS_ITS | Encounter Summary ---
Author Organization [facility] Address [address] [place] [address] Care Team Providers Care Animal Trainer Supervisor Name Role Phone Zack Gandara MD Primary Care Provider [phone] Encounter Details Date Type Department Care Team (Latest Contact Info) Description 03/22/2005 Outpatient Historical [facility] Medicine [address] [place] [address] Juancarlos Obrien MD NO ADDRESS ON FILE LUMBAGO (Primary Dx); BIPOLAR - MOST RECENTLY MANIC NOS (CMS/HCC) Social History Tobacco Use Types Packs/Day Years Used Date Smoking Tobacco: Never Assessed Comments Unknown Sex and Gender Information Value Date Recorded Sex Assigned at Not on file Legal Sex Female 4:09 AM FOUR CORNER FORMER MACHINE OPERATOR Gender Identity Not on file Sexual Orientation Not on file documented as of this encounter Plan of Treatment Not on file documented as of this encounter Visit Diagnoses Diagnosis Lumbago- Primary Bipolar I disorder, most recent episode (or current) manic, unspecified (CMS/HCC) Bipolar I disorder, most recent episode (or current) manic, unspecified documented in this encounter Care Teams Animal Trainer Supervisor Relationship Specialty Start Date End Date Zack Gandara MD PCP - General Family Practice 01/23/19 03/19/19 documented as of this encounter
--- OUTSIDE RECORDS SUMMARY | 2024-10-27 20:38 | XMS_ITS | Encounter Summary ---
Author Organization [facility] Address [address] [place] [address] Care Team Providers Care Rehabilitation Director Name Role Phone Zack Gandara MD Primary Care Provider Encounter Details Date Type Department Care Team (Late st Contact Info) Description 07/21/2007 Emergency [facility] Emergency Department [address] [place] [address] Ed, Physician NO ADDRESS ON FILE Taras Kaur, FLAME CUTTING SUPERVISOR [address] [place] [address] Lumbar Sprain and Strain; Unspecified [...] on file Legal Sex Female 4:09 AM SALES REPRESENTATIVE EDUCATION COURSES Gender Identity Not on file Sexual Orientation [...] Wilkerson M.D., Ph.D. Date Signed: 07/22/07 [facility] Final Result * XR [...] Ph.D. Date Signed: 07/22/[address] [facility] DIAGNOSTIC IMAGING ORDERABLES Final Result * XR [...] M.D., Ph.D. Date Signed: 07/22/[address] [facility] DIAGNOSTIC IMAGING ORDERABLES Final Result * XR [...] M.D., Ph.D. Date Signed: 07/22/07 Taras Kaur FLAME CUTTING SUPERVISOR DIAGNOSTIC IMAGING ORDERABLES Final Result documented in [...] home documented in this encounter Care Teams Rehabilitation Director Relationship Specialty Start Date End Date Zack Gandara MD PCP - General Family Practice 01/23/19 03/19/19 documented as of this encounter
--- OUTSIDE RECORDS SUMMARY | 2024-10-27 20:38 | XMS_ITS | Encounter Summary ---
Author Organization [facility] Address [address] [place] [address] Care Team Providers Care Circuits Engineer Name Role Phone Zack Gandara MD Primary Care Provider [phone]- [phone] Encounter Details Date Type Department Care Team (Latest Contact Info) Description 08/06/2005 Outpatient Historical [facility] Family Medicine [address] [place] [address] Juancarlos Obrien MD NO ADDRESS ON FILE Other Malaise and Fatigue (Primary Dx); Unspecified Sleep Apnea; Depressive Disorder, not Elsewhere Classified Social History Tobacco Use Types Packs/Day Years Used Date Smoking Tobacco: Never Assessed Comments Unknown Sex and Gender Information Value Date Recorded Sex Assigned at Not on file Legal Sex Female 4:09 AM WIRE WEAVER Gender Identity Not on file Sexual Orientation Not on file documented as of this encounter Plan of Treatment Not on file documented as of this encounter Visit Diagnoses Diagnosis Other malaise and fatigue- Primary Unspecified sleep apnea Depressive disorder, not elsewhere classified documented in this encounter Care Teams Circuits Engineer Relationship Specialty Start Date End Date Zack Gandara MD PCP - General Family Practice 01/23/19 03/19/19 documented as of this encounter
--- OUTSIDE RECORDS SUMMARY | 2024-10-27 20:38 | XMS_ITS | Encounter Summary ---
Author Organization [facility] Address [address] [place] [address] Care Team Providers Care Telephone Operator Name Role Phone Zack Gandara MD Primary Care Provider [phone] Encounter Details Date Type Department Care Team (Late st Contact Info) Description 01/04/2005 Emergency [facility] [address] [place] [address] Gian Downey MD NO ADDRESS ON FILE Moisés Nowak DO [address] [place] [id number] LUMBAGO (Primary Dx) Social History Tobacco Use Types Packs/Day Years Used Date Smoking Tobacco: Never Assessed Comments Unknown Sex and Gender Information Value Date Recorded Sex Assigned at Not on file Legal Sex Female 4:09 AM REWINDER Gender Identity Not on file Sexual Orientation Not on file documented as of this encounter Plan of Treatment Not on file documented as of this encounter Visit Diagnoses Diagnosis Lumbago- Primary documented in this encounter Care Teams Telephone Operator Relationship Specialty Start Date End Date Zack Gandara MD PCP - General Family Practice 01/23/19 03/19/19 documented as of this encounter
--- OUTSIDE RECORDS SUMMARY | 2024-10-27 20:38 | XMS_ITS | Encounter Summary ---
Author Organization [facility] Address [address] [place] [address] Care Team Providers Care Supervisor Meter Repair Shop Name Role Phone Zack Gandara MD Primary Care Provider [phone] Encounter Details Date Type Department Care Team (Latest Contact Info) Description 07/05/2005 Outpatient Historical [facility] Family Medicine [address] [place] [address] Juancarlos Obrien MD NO ADDRESS ON FILE Unspecified Symptom Associated with Female Genital Organs (Primary Dx) Social History Tobacco Use Types Packs/Day Years Used Date Smoking Tobacco: Never Assessed Comments Unknown Sex and Gender Information Value Date Recorded Sex Assigned at Not on file Legal Sex Female 4:09 AM FINANCIAL COMPLIANCE EXAMINER Gender Identity Not on file Sexual Orientation Not on file documented as of this encounter Plan of Treatment Not on file documented as of this encounter Visit Diagnoses Diagnosis Unspecified symptom associated with female genital organs- Primary documented in this encounter Care Teams Supervisor Meter Repair Shop Relationship Specialty Start Date End Date Zack Gandara MD PCP - General Family Practice 01/23/19 03/19/19 documented as of this encounter
--- OUTSIDE RECORDS SUMMARY | 2024-10-27 20:38 | XMS_ITS | Encounter Summary ---
Author Organization [facility] Address [address] [place] [address] Care Team Providers Care Preservationist Name Role Phone Zack Gandara MD Primary Care Provider [phone] Encounter Details Date Type Department Care Team (Latest Contact Info) Description 10/14/2004 Outpatient Historical [facility] [address] [place] [address] Moisés Nowak DO [address] [place] [address] LUMBAGO (Primary Dx) Social History Tobacco Use Types Packs/Day Years Used Date Smoking Tobacco: Never Assessed Comments Unknown Sex and Gender Information Value Date Recorded Sex Assigned at Not on file Legal Sex Female 4:09 AM BORE MILL OPERATOR Gender Identity Not on file Sexual Orientation Not on file documented as of this encounter Plan of Treatment Not on file documented as of this encounter Visit Diagnoses Diagnosis Lumbago- Primary documented in this encounter Care Teams Preservationist Relationship Specialty Start Date End Date Zack Gandara MD PCP - General Family Practice 01/23/19 03/19/19 documented as of this encounter
--- OUTSIDE RECORDS SUMMARY | 2024-10-27 20:38 | XMS_ITS | Encounter Summary ---
Author Organization [facility] Address [address] [place] [address] Care Team Providers Care Loss Prevention Officer Name Role Phone Zack Gandara MD [...] on file Legal Sex Female 4:09 AM SPECIAL EDUCATION TUTOR Gender Identity Not on file Sexual Orientation [...] tick bite. ASSESSMENT TRIAGE NOTE Triage Note: Scrap Crane Operator Leia Resendez added this note on May 24 2014 7:42PM: Advised to see UC if fever or worsening symptoms. [place] [facility] of the [facility] in [facility]. TRIAGE/OUTCOME Guideline Title: Information Only Call; No [...] on filedocumented in this encounter Care Teams Loss Prevention Officer Relationship Specialty Start Date End Date Zack Gandara MD PCP - General Family Practice 01/23/19 03/19/19 documented as of this encounter
--- OUTSIDE RECORDS SUMMARY | 2024-10-27 20:38 | XMS_ITS | Encounter Summary ---
Author Organization [facility] Address [address] [place] [address] Care Team Providers Care Lag Screwer Name Role Phone Zack Gandara MD Primary Care Provider [phone]- [phone] Encounter Details Date Type Department Care Team (Latest Contact Info) Description 02/19/2004 Outpatient Historical [facility] Internal Medicine and Pediatrics-[address] [place] [address] Karina Garibay MD NO ADDRESS ON FILE ACUTE URI NOS (Primary Dx) Social History Tobacco Use Types Packs/Day Years Used Date Smoking Tobacco: Never Assessed Comments Unknown Sex and Gender Information Value Date Recorded Sex Assigned at Not on file Legal Sex Female 4:09 AM MANAGER COMMUNITY DEVELOPMENT Gender Identity Not on file Sexual Orientation Not on file documented as of this encounter Plan of Treatment Not on file documented as of this encounter Visit Diagnoses Diagnosis Acute upper respiratory infections of unspecified site- Primary documented in this encounter Care Teams Lag Screwer Relationship Specialty Start Date End Date Zack Gandara MD PCP - General Family Practice 01/23/19 03/19/19 documented as of this encounter
--- OUTSIDE RECORDS SUMMARY | 2024-10-27 20:39 | XMS_ITS | Encounter Summary ---
Author Organization [facility] Address [address] [place] [address] Care Team Providers Care Machine Slat Basket Maker Name Role Phone Zack Gandara MD Primary Care Provider Encounter Details Date Type Department Care Team (Late st Contact Info) Description 09/16/2003 Emergency [facility] Emergency Department [address] [place] [id number] Walter Kumar MD NO ADDRESS ON FILE FOREIGN BODY GI NOS (Primary Dx) Social History Tobacco Use Types Packs/Day Years Used Date Smoking Tobacco: Never Assessed Comments Unknown Sex and Gender Information Value Date Recorded Sex Assigned at Not on file Legal Sex Female 4:09 AM DUCT CLEANER Gender Identity Not on file Sexual Orientation Not on file documented as of this encounter Plan of Treatment Not on file documented as of this encounter Visit Diagnoses Diagnosis Foreign body in digestive system, unspecified- Primary documented in this encounter Care Teams Machine Slat Basket Maker Relationship Specialty Start Date End Date Zack Gandara MD PCP - General Family Practice 01/23/19 03/19/19 documented as of this encounter
--- OUTSIDE RECORDS SUMMARY | 2024-10-27 20:39 | XMS_ITS | Encounter Summary ---
Author Organization [facility] Address [address] [place] [address] Care Team Providers Care Director Of Materials Management Name Role Phone Zack Gandara MD Primary Care Provider Encounter Details Date Type Department Care Team (Late st Contact Info) Description 03/30/2006 Emergency [facility] Emergency Department [address] [place] [phone] Harry Madera MD [address] [phone] Acute Upper Respiratory Infections of Unspecified Site (Primary Dx) Social History Tobacco Use Types Packs/Day Years Used Date Smoking Tobacco: Never Assessed Comments Unknown Sex and Gender Information Value Date Recorded Sex Assigned at Not on file Legal Sex Female 4:09 AM AMPHIBIOUS OPERATIONS OFFICER Gender Identity Not on file Sexual Orientation Not on file documented as of this encounter Plan of Treatment Not on file documented as of this encounter Procedures Procedure Name Priority Date/Time Associated Diagnosis Comments CBC WITH DIFFERENTIAL Routine 03/30/2006 6:37 PM AMPHIBIOUS OPERATIONS OFFICER BASIC METABOLIC PANEL Routine 03/30/2006 6:37 PM AMPHIBIOUS OPERATIONS OFFICER documented in this encounter Results * (ABNORMAL) CBC WITH DIFFERENTIAL (03/30/2006 6:37 PM AMPHIBIOUS OPERATIONS OFFICER) [facility] WBC 16.6(H) 4.5 - 11.0 K/ul INTERFACE [...] 0.2 K/ul INTERFACE SYSTEM 03/30/2006 6:37 PM AMPHIBIOUS OPERATIONS OFFICER Harry Madera MD HEMATOLOGY ORDERABLES Edited INTERFACE SYSTEM Refer to clinic/hospital department * (ABNORMAL) BASIC METABOLIC PANEL (03/30/2006 6:37 PM AMPHIBIOUS OPERATIONS OFFICER) Pathologist [facility] GLUCOSE 99 70 - 110 mg/dL INTERFACE [...] 295 mOsm/Kg INTERFACE SYSTEM 03/30/2006 6:37 PM AMPHIBIOUS OPERATIONS OFFICER Harry Madera MD CHEMISTRY ORDERABLES Edited INTERFACE SYSTEM Refer to clinic/hospital department documented in this encounter Visit Diagnoses Diagnosis Acute upper respiratory infections of unspecified site- Primary documented in this encounter Care Teams Director Of Materials Management Relationship Specialty Start Date End Date Zack Gandara MD PCP - General Family Practice 01/23/19 03/19/19 documented as of this encounter
--- OUTSIDE RECORDS SUMMARY | 2024-10-27 20:39 | XMS_ITS | Encounter Summary ---
Author Organization [facility] Address [address] [place] [address] Care Team Providers Care Quarter Doper Name Role Phone Zack Gandara MD Primary Care Provider Encounter Details Date Type Department Care Team (Late st Contact Info) Description 04/18/2010 Emergency [facility] [address] [place] [address] Aleksander Goodson PA [address] [place] [address] Conversion, History NO ADDRESS ON [...] on file Legal Sex Female 4:09 AM CHIEF DATA OFFICER Gender Identity Not on file Sexual Orientation Not on file documented as of this encounter Plan of Treatment Not on file documented as of this encounter Visit Diagnoses Diagnosis Lumbago- Primary Other chronic pain documented in this encounter Care Teams Quarter Doper Relationship Specialty Start Date End Date Zack Gandara MD PCP - General Family Practice 01/23/19 03/19/19 documented as of this encounter
--- OUTSIDE RECORDS SUMMARY | 2024-10-27 20:39 | XMS_ITS | Encounter Summary ---
Author Organization [facility] Address [address] [place] [address] Care Team Providers Care Chronic Condition Nurse Name Role Phone Zack Gandara MD Primary Care Provider [phone]- [phone] Encounter Details Date Type Department Care Team (Latest Contact Info) Description 10/20/2005 Outpatient Historical [facility] Family Medicine [address] [address] Juancarlos Obrien MD NO ADDRESS ON FILE Acute Sinusitis, Unspecified (Primary Dx); Lumbago Social History Tobacco Use Types Packs/Day Years Used Date Smoking Tobacco: Never Assessed Comments Unknown Sex and Gender Information Value Date Recorded Sex Assigned at Not on file Legal Sex Female 4:09 AM FLAVORING OIL FILTERER Gender Identity Not on file Sexual Orientation Not on file documented as of this encounter Plan of Treatment Not on file documented as of this encounter Visit Diagnoses Diagnosis Acute sinusitis, unspecified- Primary Lumbago documented in this encounter Care Teams Chronic Condition Nurse Relationship Specialty Start Date End Date Zack Gandara MD PCP - General Family Practice 01/23/19 03/19/19 documented as of this encounter
--- OUTSIDE RECORDS SUMMARY | 2024-10-27 20:39 | XMS_ITS | Encounter Summary ---
Author Organization [facility] Address [address] [place] [address] Care Team Providers Care Senior Coldfusion Developer Name Role Phone Zack Gandara MD Primary Care Provider [phone]- [phone] Encounter Details Date Type Department Care Team (Late st Contact Info) Description 07/24/2003 Emergency [facility] Emergency Department [address] [place] [phone] Charley Downs FNP NO ADDRESS ON FILE LUMBAGO (Primary Dx) Social History Tobacco Use Types Packs/Day Years Used Date Smoking Tobacco: Never Assessed Comments Unknown Sex and Gender Information Value Date Recorded Sex Assigned at Not on file Legal Sex Female 4:09 AM GLASS CLEANER Gender Identity Not on file Sexual Orientation Not on file documented as of this encounter Plan of Treatment Not on file documented as of this encounter Visit Diagnoses Diagnosis Lumbago- Primary documented in this encounter Care Teams Senior Coldfusion Developer Relationship Specialty Start Date End Date Zack Gandara MD PCP - General Family Practice 01/23/19 03/19/19 documented as of this encounter
--- OUTSIDE RECORDS SUMMARY | 2024-10-27 20:39 | XMS_ITS | Encounter Summary ---
Author Organization [facility] Address [address] [place] [address] Care Team Providers Care Straightening Roll Operator Name Role Phone Zack Gandara MD Primary Care Provider +1- [phone] Encounter Details Date Type Department Care Team (Latest Contact Info) Description 04/26/2006 Outpatient Historical [facility] Family Medicine [address] [address] Juancarlos Obrien MD NO ADDRESS ON FILE Unspecified Sleep Apnea (Primary Dx); Lumbago; Unspecified Constipation; Bipolar Affective, Manic, Unspec (CMS/HCC) Social History Tobacco Use Types Packs/Day Years Used Date Smoking Tobacco: Never Assessed Comments Unknown Sex and Gender Information Value Date Recorded Sex Assigned at Not on file Legal Sex Female 4:09 AM METAL DRILL PRESS OPERATOR Gender Identity Not on file Sexual [...] unspecified documented in this encounter Care Teams Straightening Roll Operator Relationship Specialty Start Date End Date Zack Gandara MD PCP - General Family Practice 01/23/19 03/19/19 documented as of this encounter
--- OUTSIDE RECORDS SUMMARY | 2024-10-27 20:39 | XMS_ITS | Encounter Summary ---
Author Organization [facility] Address [address] [place]: [place] [address] Care Team Providers Care Automatic Spinning Lathe Operator Name Role Phone Zack Gandara MD Primary Care Provider [phone] Encounter Details Date Type Department Care Team (Latest Contact Info) Description 03/24/1999 Emergency [facility], Physician NO ADDRESS ON FILE Social History Tobacco Use Types Packs/Day Years Used Date Smoking Tobacco: Never Assessed Comments Unknown Sex and Gender Information Value Date Recorded Sex Assigned at Not on file Legal Sex Female 4:09 AM SALES AND MARKETING EXECUTIVE Gender Identity Not on file Sexual Orientation Not on file documented as of this encounter Plan of Treatment Not on file documented as of this encounter Visit Diagnoses Not on filedocumented in this encounter Care Teams Automatic Spinning Lathe Operator Relationship Specialty Start Date End Date Zack Gandara MD PCP - General Family Practice 01/23/19 03/19/19 documented as of this encounter
--- OUTSIDE RECORDS SUMMARY | 2024-10-27 20:39 | XMS_ITS | Encounter Summary ---
Author Organization [facility] Address [address] [place] [address] Care Team Providers Care Assistant Professor Of Physics Name Role Phone Zack Gandara MD Primary Care Provider [phone]- [phone] Encounter Details Date Type Department Care Team (Late st Contact Info) Description 01/08/2007 Emergency [facility] Emergency Department [address] [place] [phone] Charley Downs FNP NO ADDRESS ON FILE Bronchitis, not Specified as Acute or Chronic (Primary Dx) Social History Tobacco Use Types Packs/Day Years Used Date Smoking Tobacco: Never Assessed Comments Unknown Sex and Gender Information Value Date Recorded Sex Assigned at Not on file Legal Sex Female 4:09 AM CROCHETER HAND Gender Identity Not on file Sexual Orientation Not on file documented as of this encounter Plan of Treatment Not on file documented as of this encounter Visit Diagnoses Diagnosis Bronchitis, not specified as acute or chronic- Primary documented in this encounter Care Teams Assistant Professor Of Physics Relationship Specialty Start Date End Date Zack Gandara MD PCP - General Family Practice 01/23/19 03/19/19 documented as of this encounter
--- OUTSIDE RECORDS SUMMARY | 2024-10-27 20:39 | XMS_ITS | Encounter Summary ---
Author Organization [facility] Address [address] [place] [address] Care Team Providers Care Sales Development Specialist Name Role Phone Zack Gandara MD Primary Care Provider Encounter Details Date Type Department Care Team (Late st Contact Info) Description 11/29/2006 Outpatient Historical [facility] [address] [place] [phone] David Kim MD [address] [place] [phone] Effusion of Lower Leg Joint (Primary Dx) Social History Tobacco Use Types Packs/Day Years Used Date Smoking Tobacco: Never Assessed Comments Unknown Sex and Gender Information Value Date Recorded Sex Assigned at Not on file Legal Sex Female 4:09 AM WORLDWIDE CHIEF CREATIVE OFFICER Gender Identity Not on file Sexual [...] Primary documented in this encounter Care Teams Sales Development Specialist Relationship Specialty Start Date End Date Zack Gandara MD PCP - General Family Practice 01/23/19 03/19/19 documented as of this encounter
--- OUTSIDE RECORDS SUMMARY | 2024-10-27 20:39 | XMS_ITS | Encounter Summary ---
Author Organization [facility] Address [address] [place] [address] Care Team Providers Care Piano Refinisher Name Role Phone Zack Gandara MD Primary Care Provider Encounter Details Date Type Department Care Team (Late st Contact Info) Description 04/24/2006 Outpatient Historical [facility] [address] [place] [address] AMBULANCE, [facility] Unspecified Backache (Primary Dx) Social History Tobacco Use Types Packs/Day Years Used Date Smoking Tobacco: Never Assessed Comments Unknown Sex and Gender Information Value Date Recorded Sex Assigned at Not on file Legal Sex Female 4:09 AM SILK SCREEN PRINTER Gender Identity Not on file Sexual Orientation Not on file documented as of this encounter Plan of Treatment Not on file documented as of this encounter Visit Diagnoses Diagnosis Backache, unspecified- Primary documented in this encounter Care Teams Piano Refinisher Relationship Specialty Start Date End Date Zack Gandara MD PCP - General Family Practice 01/23/19 03/19/19 documented as of this encounter
--- OUTSIDE RECORDS SUMMARY | 2024-10-27 20:39 | XMS_ITS | Encounter Summary ---
Author Organization [facility] Address [address] [place] [address] Care Team Providers Care Assistant Golf Course Superintendent Name Role Phone Zack Gandara MD Primary Care Provider Encounter Details Date Type Department Care Team (Late st Contact Info) Description 12/26/2003 Emergency [facility] Emergency Department [address] [place] [phone] Jaidel Brothers D, DO [address] [place] [phone] LUMBAGO (Primary Dx) Social History Tobacco Use Types Packs/Day Years Used Date Smoking Tobacco: Never Assessed Comments Unknown Sex and Gender Information Value Date Recorded Sex Assigned at Not on file Legal Sex Female 4:09 AM MACHINE WASHER Gender Identity Not on file Sexual Orientation Not on file documented as of this encounter Plan of Treatment Not on file documented as of this encounter Visit Diagnoses Diagnosis Lumbago- Primary documented in this encounter Care Teams Assistant Golf Course Superintendent Relationship Specialty Start Date End Date Zack Gandara MD PCP - General Family Practice 01/23/19 03/19/19 documented as of this encounter
--- OUTSIDE RECORDS SUMMARY | 2024-10-27 20:39 | XMS_ITS | Encounter Summary ---
Author Organization [facility] Address [address] [place] [address] Care Team Providers Care Dining Room Hostess Name Role Phone Zack Gandara MD Primary Care Provider Encounter Details Date Type Department Care Team (Late st Contact Info) Description 02/23/2008 Emergency [facility] Emergency Department [address] [place] [phone] Ed, Physician NO ADDRESS ON FILE Geovany [...] on file Legal Sex Female 4:09 AM WELLNESS HEALTH COACH Gender Identity Not on file Sexual Orientation Not on file documented as of this encounter Plan of Treatment Not on file documented as of this encounter Procedures Procedure Name Priority Date/Time Associated Diagnosis Comments XR LUMBAR SPINE 2 OR 3 VW Routine 02/23/2008 5:48 PM WELLNESS HEALTH COACH XR CERVICAL SPINE 2 OR 3 VIEWS Routine 02/23/2008 5:48 PM WELLNESS HEALTH COACH documented in this encounter Results * XR LUMBAR SPINE 2 OR 3 VW (02/23/2008 5:48 PM WELLNESS HEALTH COACH) Anatomical Region Laterality Modality Spine Other 02/23/2008 5:48 PM WELLNESS HEALTH COACH Narrative 02/24/2008 2:31 PM WELLNESS HEALTH COACH Exam: Spine - Lumbar Date/Time of Exam: [...] 2 OR 3 VW (02/23/2008 5:48 PM WELLNESS HEALTH COACH) Anatomical Region Laterality Modality Spine Other 02/23/2008 5:48 PM WELLNESS HEALTH COACH Narrative 02/24/2008 2:31 PM WELLNESS HEALTH COACH Exam: Spine - Cervical Limited Date/Time of [...] on filedocumented in this encounter Care Teams Dining Room Hostess Relationship Specialty Start Date End Date Zack Gandara MD PCP - General Family Practice 01/23/19 03/19/19 documented as of this encounter
--- OUTSIDE RECORDS SUMMARY | 2024-10-27 20:39 | XMS_ITS | Encounter Summary ---
Author Organization [facility] Address [address] [place] [address] Care Team Providers Care Mission Analyst Name Role Phone Zack Gandara MD Primary Care Provider Encounter Details Date Type Department Care Team (Latest Contact Info) Description 02/21/2003 Outpatient Historical [facility] [address] [place] [phone] Tate Edwards MD [address] [place] [phone] OBESITY NOS (Primary Dx) Social History Tobacco Use Types Packs/Day Years Used Date Smoking Tobacco: Never Assessed Comments Unknown Sex and Gender Information Value Date Recorded Sex Assigned at Not on file Legal Sex Female 4:09 AM RELEASE COORDINATOR Gender Identity Not on file Sexual Orientation Not on file documented as of this encounter Plan of Treatment Not on file documented as of this encounter Visit Diagnoses Diagnosis Obesity, unspecified- Primary documented in this encounter Care Teams Mission Analyst Relationship Specialty Start Date End Date Zack Gandara MD PCP - General Family Practice 01/23/19 03/19/19 documented as of this encounter
--- OUTSIDE RECORDS SUMMARY | 2024-10-27 20:39 | XMS_ITS | Encounter Summary ---
Author Organization [facility] Address [address] [place] [address] Care Team Providers Care Cherry Picker Operator Name Role Phone Zack Gandara MD Primary Care Provider Encounter Details Date Type Department Care Team (Late st Contact Info) Description 02/18/2010 Emergency [facility] [address] [place] [address] [facility] RHONDA Moulton [address] [place] [address] [address] [place] [phone] Conversion, History NO ADDRESS ON FILE Unspecified [...] file Legal Sex Female 4:09 AM MANAGER OF HEALTH Gender Identity Not on file Sexual Orientation Not on file documented as of this encounter Plan of Treatment Not on file documented as of this encounter Visit Diagnoses Diagnosis Backache, unspecified- Primary Other chronic pain Nausea alone Vomiting alone documented in this encounter Care Teams Cherry Picker Operator Relationship Specialty Start Date End Date Zack Gandara MD PCP - General Family Practice 01/23/19 03/19/19 documented as of this encounter
--- OUTSIDE RECORDS SUMMARY | 2024-10-27 20:39 | XMS_ITS | Encounter Summary ---
Author Organization [facility] Address [address] [place] [address] Care Team Providers Care Tour Agent Name Role Phone Zack Gandara MD Primary Care Provider Encounter Details Date Type Department Care Team (Late st Contact Info) Description 11/22/2006 Outpatient Historical [facility] Orthopedics- [address] [place] [phone] David Kim MD [address] [place] [phone] Pain in Joint, Lower Leg (Primary Dx); Obesity, Unspecified; Unspecified Fall Social History Tobacco Use Types Packs/Day Years Used Date Smoking Tobacco: Never Assessed Comments Unknown Sex and Gender Information Value Date Recorded Sex Assigned at Not on file Legal Sex Female 4:09 AM ELECTRIC SHAVER MECHANIC Gender Identity Not on file Sexual Orientation Not on file documented as of this encounter Plan of Treatment Not on file documented as of this encounter Visit Diagnoses Diagnosis Pain in joint, lower leg- Primary Obesity, unspecified Unspecified fall documented in this encounter Care Teams Tour Agent Relationship Specialty Start Date End Date Zack Gandara MD PCP - General Family Practice 01/23/19 03/19/19 documented as of this encounter
--- OUTSIDE RECORDS SUMMARY | 2024-10-27 20:39 | XMS_ITS | Encounter Summary ---
Author Organization [facility] Address [address] [place] [address] Care Team Providers Care Dock Loader Name Role Phone Zack Gandara MD Primary Care Provider Encounter Details Date Type Department Care Team (Late st Contact Info) Description 05/27/2003 Emergency [facility] Emergency Department [address] [place] [phone] Jadiel Brothers D, DO [address] [place] [phone] LUMB/LUMBOSAC DISC DEGEN (Primary Dx) Social History Tobacco Use Types Packs/Day Years Used Date Smoking Tobacco: Never Assessed Comments Unknown Sex and Gender Information Value Date Recorded Sex Assigned at Not on file Legal Sex Female 4:09 AM HAT BODY INSPECTOR Gender Identity Not on file Sexual Orientation Not on file documented as of this encounter Plan of Treatment Not on file documented as of this encounter Visit Diagnoses Diagnosis Degeneration of lumbar or lumbosacral intervertebral disc- Primary documented in this encounter Care Teams Dock Loader Relationship Specialty Start Date End Date Zack Gandara MD PCP - General Family Practice 01/23/19 03/19/19 documented as of this encounter
--- OUTSIDE RECORDS SUMMARY | 2024-10-27 20:39 | XMS_ITS | Encounter Summary ---
Author Organization [facility] Address [address] [place] [address] Care Team Providers Care Rigger Supervisor Name Role Phone Zack Gandara MD Primary Care Provider Encounter Details Date Type Department Care Team (Late st Contact Info) Description 11/11/2006 Emergency [facility] Emergency Department [address] [place] [address] Taras Kaur, RESEARCH ASSOCIATE MOLECULAR BIOLOGY [address] [place] [address] Sprain and Strain of Unspecified Site of Knee and Leg (Primary Dx) Social History Tobacco Use Types Packs/Day Years Used Date Smoking Tobacco: Never Assessed Comments Unknown Sex and Gender Information Value Date Recorded Sex Assigned at Not on file Legal Sex Female 4:09 AM TYRE FITTER Gender Identity Not on file Sexual Orientation [...] M.D.MD Date Signed: 11/12/06 AMA Taras Kaur RESEARCH ASSOCIATE MOLECULAR BIOLOGY DIAGNOSTIC IMAGING ORDERABLES Final Result documented in this encounter Visit Diagnoses Diagnosis Sprain and strain of unspecified site of knee and leg- Primary documented in this encounter Care Teams Rigger Supervisor Relationship Specialty Start Date End Date Zack Gandara MD PCP - General Family Practice 01/23/19 03/19/19 documented as of this encounter
--- OUTSIDE RECORDS SUMMARY | 2024-10-27 20:39 | XMS_ITS | Encounter Summary ---
Author Organization [facility] Address [address] [place] [address] Care Team Providers Care Lead Refinery Supervisor Name Role Phone Zack Gandara MD Primary Care Provider [phone]- [phone] Encounter Details Date Type Department Care Team (Late st Contact Info) Description 07/14/2003 Emergency [facility] Emergency Department [address] [place] [phone] Charley Downs FNP NO ADDRESS ON FILE LUMBAGO (Primary Dx) Social History Tobacco Use Types Packs/Day Years Used Date Smoking Tobacco: Never Assessed Comments Unknown Sex and Gender Information Value Date Recorded Sex Assigned at Not on file Legal Sex Female 4:09 AM PHOTOGRAPHIC SPECIALIST Gender Identity Not on file Sexual Orientation Not on file documented as of this encounter Plan of Treatment Not on file documented as of this encounter Visit Diagnoses Diagnosis Lumbago- Primary documented in this encounter Care Teams Lead Refinery Supervisor Relationship Specialty Start Date End Date Zack Gandara MD PCP - General Family Practice 01/23/19 03/19/19 documented as of this encounter
--- OUTSIDE RECORDS SUMMARY | 2024-10-27 20:39 | XMS_ITS | Encounter Summary ---
Author Organization [facility] Address [address] [place] [address] Care Team Providers Care Blue Leather Sorter Name Role Phone Zack Gandara MD Primary Care Provider Encounter Details Date Type Department Care Team (Latest Contact Info) Description 12/21/2000 Outpatient Historical [facility] Family Medicine [place] [address] [facility] [address] [place] [phone] Koki Birch MD NO ADDRESS ON FILE HEADACHE (Primary Dx) Social History Tobacco Use Types Packs/Day Years Used Date Smoking Tobacco: Never Assessed Comments Unknown Sex and Gender Information Value Date Recorded Sex Assigned at Not on file Legal Sex Female 4:09 AM MANAGED SERVICES CONSULTANT Gender Identity Not on file Sexual Orientation Not on file documented as of this encounter Plan of Treatment Not on file documented as of this encounter Visit Diagnoses Diagnosis Headache(784.0)- Primary Headache documented in this encounter Care Teams Blue Leather Sorter Relationship Specialty Start Date End Date Zack Gandara MD PCP - General Family Practice 01/23/19 03/19/19 documented as of this encounter
--- OUTSIDE RECORDS SUMMARY | 2024-10-27 20:39 | XMS_ITS | Encounter Summary ---
Author Organization [facility] Address [address] [place] [address] Care Team Providers Care Paper Machine Backtender Name Role Phone Zack Gandraa MD Primary Care Provider [phone]- [phone] Encounter Details Date Type Department Care Team (Latest Contact Info) Description 12/17/2005 Outpatient Historical [facility] Family Medicine [address] [place] [address] Juancarlos Obrien MD NO ADDRESS ON FILE Pain in Joint, Pelvic Region and Thigh (Primary Dx) Social History Tobacco Use Types Packs/Day Years Used Date Smoking Tobacco: Never Assessed Comments Unknown Sex and Gender Information Value Date Recorded Sex Assigned at Not on file Legal Sex Female 4:09 AM FIELD IDENTIFICATION SPECIALIST Gender Identity Not on file Sexual Orientation Not on file documented as of this encounter Plan of Treatment Not on file documented as of this encounter Visit Diagnoses Diagnosis Pain in joint, pelvic region and thigh- Primary documented in this encounter Care Teams Paper Machine Backtender Relationship Specialty Start Date End Date Zack Gandara MD PCP - General Family Practice 01/23/19 03/19/19 documented as of this encounter
--- OUTSIDE RECORDS SUMMARY | 2024-10-27 20:39 | XMS_ITS | Encounter Summary ---
Author Organization [facility] Address [address] [place]: [place] [address] Care Team Providers Care Lead Teller Name Role Phone Zack Gandara MD Primary Care Provider [phone] Encounter Details Date Type Department Care Team (Latest Contact Info) Description 04/16/1999 Emergency Sterling Eli MD NO ADDRESS ON FILE Social History Tobacco Use Types Packs/Day Years Used Date Smoking Tobacco: Never Assessed Comments Unknown Sex and Gender Information Value Date Recorded Sex Assigned at Not on file Legal Sex Female 4:09 AM PIPE SMOKING MACHINE OPERATOR Gender Identity Not on file Sexual Orientation Not on file documented as of this encounter Plan of Treatment Not on file documented as of this encounter Visit Diagnoses Not on filedocumented in this encounter Care Teams Lead Teller Relationship Specialty Start Date End Date Zack Gandara MD PCP - General Family Practice 01/23/19 03/19/19 documented as of this encounter
--- OUTSIDE RECORDS SUMMARY | 2024-10-27 20:39 | XMS_ITS | Encounter Summary ---
Author Organization [facility] Address [address] [place] [address] Care Team Providers Care Axminster Weaver Name Role Phone Zack Gandara MD Primary Care Provider [phone] Encounter Details Date Type Department Care Team (Late st Contact Info) Description 10/07/2003 Emergency [facility] Emergency Department [address] [place] [phone] Michelle Hanna MD [address] [place] [phone] LUMBAGO (Primary Dx) Social History Tobacco Use Types Packs/Day Years Used Date Smoking Tobacco: Never Assessed Comments Unknown Sex and Gender Information Value Date Recorded Sex Assigned at Not on file Legal Sex Female 4:09 AM WARP TYING MACHINE TENDER Gender Identity Not on file Sexual Orientation Not on file documented as of this encounter Plan of Treatment Not on file documented as of this encounter Visit Diagnoses Diagnosis Lumbago- Primary documented in this encounter Care Teams Axminster Weaver Relationship Specialty Start Date End Date Zack Gandara MD PCP - General Family Practice 01/23/19 03/19/19 documented as of this encounter
--- OUTSIDE RECORDS SUMMARY | 2024-10-27 20:39 | XMS_ITS | Encounter Summary ---
Author Organization [facility] Address [address] [place] [address] Care Team Providers Care Line Department Supervisor Name Role Phone Zack Gandara MD Primary Care Provider Encounter Details Date Type Department Care Team (Late st Contact Info) Description 11/30/2006 Outpatient Historical [facility] [address] [place] [address] Social History Tobacco Use Types Packs/Day Years Used Date Smoking Tobacco: Never Assessed Comments Unknown Sex and Gender Information Value Date Recorded Sex Assigned at Not on file Legal Sex Female 4:09 AM PROJECT CONSTRUCTION MANAGER Gender Identity Not on file Sexual Orientation Not on file documented as of this encounter Plan of Treatment Not on file documented as of this encounter Visit Diagnoses Not on filedocumented in this encounter Care Teams Line Department Supervisor Relationship Specialty Start Date End Date Zack Gandara MD PCP - General Family Practice 01/23/19 03/19/19 documented as of this encounter
--- OUTSIDE RECORDS SUMMARY | 2024-10-27 20:39 | XMS_ITS | Encounter Summary ---
Author Organization [facility] Address [address] [place] [address] Care Team Providers Care Drapery Hand Name Role Phone Zack Gandara MD Primary Care Provider Encounter Details Date Type Department Care Team (Latest Contact Info) Description 02/21/2003 Outpatient Historical [facility] [address] [place] [phone] Tate Edwards MD [address] [place] [phone] LUMBAGO (Primary Dx); SCIATICA; OBESITY NOS Social History Tobacco Use Types Packs/Day Years Used Date Smoking Tobacco: Never Assessed Comments Unknown Sex and Gender Information Value Date Recorded Sex Assigned at Not on file Legal Sex Female 4:09 AM CONCRETE FINISHER Gender Identity Not on file Sexual Orientation Not on file documented as of this encounter Plan of Treatment Not on file documented as of this encounter Visit Diagnoses Diagnosis Lumbago- Primary Sciatica Obesity, unspecified documented in this encounter Care Teams Drapery Hand Relationship Specialty Start Date End Date Zack Gandara MD PCP - General Family Practice 01/23/19 03/19/19 documented as of this encounter
--- OUTSIDE RECORDS SUMMARY | 2024-10-27 20:39 | XMS_ITS | Encounter Summary ---
Author Organization [facility] Address [address] [place] [address] Care Team Providers Care Building Construction Supervisor Name Role Phone Zack Gandara MD Primary Care Provider Encounter Details Date Type Department Care Team (Latest Contact Info) Description 01/02/2004 Outpatient Historical [facility] Internal Medicine and Pediatrics-[address] [place] [address] Karina Garibay MD NO ADDRESS ON FILE SCIATICA (Primary Dx); MORBID OBESITY (CMS/HCC); CLASS MIGRAIN W/O MENTN INTRACTABLE; HYPERTENSION NOS Social History Tobacco Use Types Packs/Day Years Used Date Smoking Tobacco: Never Assessed Comments Unknown Sex and Gender Information Value Date Recorded Sex Assigned at Not on file Legal Sex Female 4:09 AM TECHNICAL PROGRAMS MANAGER Gender Identity Not on file Sexual Orientation Not on file documented as of this encounter Plan of Treatment Not on file documented as of this encounter Visit Diagnoses Diagnosis Sciatica- Primary Morbid obesity (CMS/HCC) Morbid obesity Migraine with aura, without mention of intractable migraine without mention of status migrainosus Unspecified essential hypertension documented in this encounter Care Teams Building Construction Supervisor Relationship Specialty Start Date End Date Zack Gandara MD PCP - General Family Practice 01/23/19 03/19/19 documented as of this encounter
--- OUTSIDE RECORDS SUMMARY | 2024-10-27 20:39 | XMS_ITS | Encounter Summary ---
Author Organization [facility] Address [address] [place] [address] Care Team Providers Care Road Mixer Operator Name Role Phone Zack Gandara MD Primary Care Provider Encounter Details Date Type Department Care Team (Late st Contact Info) Description 12/16/2003 Emergency [facility] Emergency Department [address] [place] [phone] Rosaura Freeman, MANUFACTURING QUALITY TECHNICIAN NO ADDRESS ON FILE LUMBAGO (Primary Dx) Social History Tobacco Use Types Packs/Day Years Used Date Smoking Tobacco: Never Assessed Comments Unknown Sex and Gender Information Value Date Recorded Sex Assigned at Not on file Legal Sex Female 4:09 AM MONOMER RECOVERY OPERATOR Gender Identity Not on file Sexual Orientation Not on file documented as of this encounter Plan of Treatment Not on file documented as of this encounter Visit Diagnoses Diagnosis Lumbago- Primary documented in this encounter Care Teams Road Mixer Operator Relationship Specialty Start Date End Date Zack Gandara MD PCP - General Family Practice 01/23/19 03/19/19 documented as of this encounter
--- OUTSIDE RECORDS SUMMARY | 2024-10-27 20:39 | XMS_ITS | Encounter Summary ---
Author Organization [facility] Address [address] [place] [address] Care Team Providers Care Maintenance Worker Name Role Phone Zack Gandara MD Primary Care Provider Encounter Details Date Type Department Care Team (Late st Contact Info) Description 07/07/2006 Outpatient Historical [facility] [address] [place] [address] AMBULANCE, [facility] Pneumonia, Organism Unspecified (Primary Dx) Social History Tobacco Use Types Packs/Day Years Used Date Smoking Tobacco: Never Assessed Comments Unknown Sex and Gender Information Value Date Recorded Sex Assigned at Not on file Legal Sex Female 4:09 AM SWATCH CLERK Gender Identity Not on file Sexual Orientation Not on file documented as of this encounter Plan of Treatment Not on file documented as of this encounter Visit Diagnoses Diagnosis Pneumonia, organism unspecified(486)- Primary Pneumonia, organism unspecified documented in this encounter Care Teams Maintenance Worker Relationship Specialty Start Date End Date Zack Gandara MD PCP - General Family Practice 01/23/19 03/19/19 documented as of this encounter
--- OUTSIDE RECORDS SUMMARY | 2024-10-27 20:39 | XMS_ITS | Encounter Summary ---
Author Organization [facility] Address [address] [place] [address] Care Team Providers Care Lime Kiln Tender Name Role Phone Zack Gandara MD Primary Care Provider Encounter Details Date Type Department Care Team (Late st Contact Info) Description 01/23/2010 Emergency [facility] [address] [place] [address] Carito Proctor MD [address] [place] [address] Conversion, History NO ADDRESS ON [...] on file Legal Sex Female 4:09 AM CASTING ROOM OPERATOR Gender Identity Not on file Sexual Orientation Not on file documented as of this encounter Plan of Treatment Not on file documented as of this encounter Visit Diagnoses Diagnosis Lumbago- Primary Other chronic pain Diarrhea Vomiting alone documented in this encounter Care Teams Lime Kiln Tender Relationship Specialty Start Date End Date Zack Gandara MD PCP - General Family Practice 01/23/19 03/19/19 documented as of this encounter
--- OUTSIDE RECORDS SUMMARY | 2024-10-27 20:39 | XMS_ITS | Encounter Summary ---
Author Organization [facility] Address [address] [place] [address] Care Team Providers Care Telephone Collector Name Role Phone Zack Gandara MD Primary Care Provider Encounter Details Date Type Department Care Team (Late st Contact Info) Description 01/08/2007 Outpatient Historical [facility] [address] [place] [address] AMBULANCE, [facility] Social History Tobacco Use Types Packs/Day Years Used Date Smoking Tobacco: Never Assessed Comments Unknown Sex and Gender Information Value Date Recorded Sex Assigned at Not on file Legal Sex Female 4:09 AM INDUSTRIAL MAINTENANCE ELECTRICIAN Gender Identity Not on file Sexual Orientation Not on file documented as of this encounter Plan of Treatment Not on file documented as of this encounter Visit Diagnoses Not on filedocumented in this encounter Care Teams Telephone Collector Relationship Specialty Start Date End Date Zack Gandara MD PCP - General Family Practice 01/23/19 03/19/19 documented as of this encounter
--- OUTSIDE RECORDS SUMMARY | 2024-10-27 20:39 | XMS_ITS | Encounter Summary ---
Author Organization [facility] Address [address] [place] [address] Care Team Providers Care Slipcover Cutter Name Role Phone Zack Gandara MD Primary Care Provider Encounter Details Date Type Department Care Team (Latest Contact Info) Description 01/10/2007 Outpatient Historical [facility] [address] [place] [phone] Eloy Lopez MD [address] [place] [address] Pain in Joint, Lower Leg (Primary Dx); Primary Localized Osteoarthrosis, Lower Leg; Morbid Obesity (CMS/HCC) Social History Tobacco Use Types Packs/Day Years Used Date Smoking Tobacco: Never Assessed Comments Unknown Sex and Gender Information Value Date Recorded Sex Assigned at Not on file Legal Sex Female 4:09 AM TIME STUDY TECHNOLOGIST Gender Identity Not on file Sexual Orientation Not on file documented as of this encounter Plan of Treatment Not on file documented as of this encounter Visit Diagnoses Diagnosis Pain in joint, lower leg- Primary Primary localized osteoarthrosis, lower leg Morbid obesity (CMS/HCC) Morbid obesity documented in this encounter Care Teams Slipcover Cutter Relationship Specialty Start Date End Date Zack Gandara MD PCP - General Family Practice 12/10/19 2/3/20 documented as of this encounter
--- OUTSIDE RECORDS SUMMARY | 2024-10-27 20:39 | XMS_ITS | Encounter Summary ---
Author Organization [facility] Address [address] [place] [address] Care Team Providers Care Drying Tunnel Operator Name Role Phone Zack Gandara MD Primary Care Provider Encounter Details Date Type Department Care Team (Late st Contact Info) Description 01/02/2003 Emergency [facility] Emergency Department [address] [place] [phone] Walter Kumar MD NO ADDRESS ON FILE LUMBAGO (Primary Dx) Social History Tobacco Use Types Packs/Day Years Used Date Smoking Tobacco: Never Assessed Comments Unknown Sex and Gender Information Value Date Recorded Sex Assigned at Not on file Legal Sex Female 4:09 AM COSMETICIAN APPRENTICE Gender Identity Not on file Sexual Orientation Not on file documented as of this encounter Plan of Treatment Not on file documented as of this encounter Visit Diagnoses Diagnosis Lumbago- Primary documented in this encounter Care Teams Drying Tunnel Operator Relationship Specialty Start Date End Date Zack Gandara MD PCP - General Family Practice 01/23/19 03/19/19 documented as of this encounter
--- OUTSIDE RECORDS SUMMARY | 2024-10-27 20:39 | XMS_ITS | Encounter Summary ---
Author Organization [facility] Address [address] [place] [address] Care Team Providers Care Tile Mechanic Name Role Phone Zack Gandara MD Primary Care Provider [phone] Encounter Details Date Type Department Care Team (Latest Contact Info) Description 08/09/2003 Outpatient Historical [facility] [address] [place] [phone] Sabino Diaz MD [address] [place] [phone] LUMBAGO (Primary Dx); Skin sensation disturb Social History Tobacco Use Types Packs/Day Years Used Date Smoking Tobacco: Never Assessed Comments Unknown Sex and Gender Information Value Date Recorded Sex Assigned at Not on file Legal Sex Female 4:09 AM BODY SHOP SUPERVISOR Gender Identity Not on file Sexual Orientation Not on file documented as of this encounter Plan of Treatment Not on file documented as of this encounter Visit Diagnoses Diagnosis Lumbago- Primary Skin sensation disturb Disturbance of skin sensation documented in this encounter Care Teams Tile Mechanic Relationship Specialty Start Date End Date Zack Gandara MD PCP - General Family Practice 01/23/19 03/19/19 documented as of this encounter
--- OUTSIDE RECORDS SUMMARY | 2024-10-27 20:39 | XMS_ITS | Encounter Summary ---
Author Organization [facility] Address [address] [place] [address] Care Team Providers Care Hull Molder Name Role Phone Zack Gandara MD Primary Care Provider Encounter Details Date Type Department Care Team (Latest Contact Info) Description 02/02/2007 Outpatient Historical [facility] Operating Room [address] [place] [phone] Eloy Lopez MD [address] [place] [address] Chondromalacia of Patella; Plica Syndrome; Chronic Pain Syndrome; Headache; Anxiety State, Unspecified; Tobacco Use Disorder; Morbid Obesity (CMS/[facility]); Obstructive Sleep Apnea (Adult) (Pediatric); Bipolar Disorder, Unspecified (CMS/[facility]); Personal History of Allergy to Analgesic Agent; Personal History of Allergy to Penicillin; Personal History of Allergy to Sulfonamides; Personal History of Allergy to Other Specified Medicinal Agents Social History Tobacco Use Types Packs/Day Years Used Date Smoking Tobacco: Never Assessed Comments Unknown Sex and Gender Information Value Date Recorded Sex Assigned at Not on file Legal Sex Female 4:09 AM DIESEL DINKEY OPERATOR Gender Identity Not on file Sexual Orientation Not on file documented as of this encounter Plan of Treatment Not on file documented as of this encounter Visit Diagnoses Diagnosis Chondromalacia of patella Plica syndrome Chronic pain syndrome Headache(784.0) Headache Anxiety state, unspecified Tobacco use disorder Morbid obesity (CMS/[facility]) Morbid obesity Obstructive sleep apnea (adult) (pediatric) Bipolar disorder, unspecified (CMS/[facility]) Bipolar disorder, unspecified Personal history of allergy to analgesic agent Personal history of allergy to penicillin Personal history of allergy to sulfonamides Personal history of allergy to other specified medicinal agents documented in this encounter Care Teams Hull Molder Relationship Specialty Start Date End Date Zack Gandara MD PCP - General Family Practice 01/23/19 03/19/19 documented as of this encounter
--- OUTSIDE RECORDS SUMMARY | 2024-10-27 20:39 | XMS_ITS | Encounter Summary ---
Author Organization [facility] Address [address] [place]: [place] [address] Care Team Providers Care Founder And Ceo Name Role Phone Zack Gandara MD Primary Care Provider Encounter Details Date Type Department Care Team (Latest Contact Info) Description 03/25/1999 [place] [address] [address] Social History Tobacco Use Types Packs/Day Years Used Date Smoking Tobacco: Never Assessed Comments Unknown Sex and Gender Information Value Date Recorded Sex Assigned at Not on file Legal Sex Female 4:09 AM DYE EXPERT Gender Identity Not on file Sexual Orientation Not on file documented as of this encounter Plan of Treatment Not on file documented as of this encounter Visit Diagnoses Not on filedocumented in this encounter Care Teams Founder And Ceo Relationship Specialty Start Date End Date Zack Gandara MD PCP - General Family Practice 01/23/19 03/19/19 documented as of this encounter
--- OUTSIDE RECORDS SUMMARY | 2024-10-27 20:39 | XMS_ITS | Encounter Summary ---
Author Organization [facility] Address [address] [place] [address] Care Team Providers Care State Farm Agent Name Role Phone Zack Gandara MD Primary Care Provider Encounter Details Date Type Department Care Team (Late st Contact Info) Description 05/03/2008 Ancillary Orders [facility] MRI [address] [place] [address] Sabino Troncoso MD [address] [place] [address] Lumbago Social History Tobacco Use Types Packs/Day Years Used Date Smoking Tobacco: Every Day Cigarettes 1 15 Alcohol Use Standard Drinks/Week Comments No 0 (1 standard drink = 0.6 oz pur e alcohol) Comments No Sex and Gender Information Value Date Recorded Sex Assigned at Not on file Legal Sex Female 4:09 AM SOFTWARE SALES EXECUTIVE Gender Identity Not on file Sexual [...] or neural impingement. cgf: - uploaded from [employer] 05/27/2008 1:31 PM CDT Exam: MRI LUMBAR [...] or neural impingement. cgf: - uploaded from [employer] us Sabino Troncoso MD MR ORDERABLES Final Res ult documented in this encounter Visit Diagnoses Diagnosis Lumbago Lumbago documented in this encounter Care Teams State Farm Agent Relationship Specialty Start Date End Date Zack Gandara MD PCP - General Family Practice 01/23/19 03/19/19 documented as of this encounter
--- OUTSIDE RECORDS SUMMARY | 2024-10-27 20:39 | XMS_ITS | Encounter Summary ---
Author Organization [facility] Address [address] [place] [address] Care Team Providers Care Customs Compliance Specialist Name Role Phone Zack Gandara MD Primary Care Provider Encounter Details Date Type Department Care Team (Late st Contact Info) Description 12/29/2006 Outpatient Historical [facility] [place] [address] [place] [address] Social History Tobacco Use Types Packs/Day Years Used Date Smoking Tobacco: Never Assessed Comments Unknown Sex and Gender Information Value Date Recorded Sex Assigned at Not on file Legal Sex Female 4:09 AM COSMETICS AND TOILETRIES SALESPERSON Gender Identity Not on file Sexual Orientation Not on file documented as of this encounter Plan of Treatment Not on file documented as of this encounter Visit Diagnoses Not on filedocumented in this encounter Care Teams Customs Compliance Specialist Relationship Specialty Start Date End Date Zack Gandara MD PCP - General Family Practice 01/23/19 03/19/19 documented as of this encounter
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
--- OUTSIDE RECORDS SUMMARY | 2024-10-27 20:39 | XMS_ITS | Encounter Summary ---
Author Organization [facility] Address [address] [place] [address] Care Team Providers Care Capacity Planning Manager Name Role Phone Zack Gandara MD Primary Care Provider [phone] Encounter Details Date Type Department Care Team (Latest Contact Info) Description 04/30/2008 Ancillary Orders [facility] MRI [address] [place] [phone] Jacinta Faria, BANKING SUPERVISOR [address] [facility] [place] [address] Chronic Low Back Pain Social History Tobacco Use Types Packs/Day Years Used Date Smoking Tobacco: Every Day Cigarettes 1 15 Alcohol Use Standard Drinks/Week Comments No 0 (1 standard drink = 0.6 oz pur e alcohol) Comments No Sex and Gender Information Value Date Recorded Sex Assigned at Not on file Legal Sex Female 4:09 AM PHOTOGRAMMETRY AIRPLANE PILOT Gender Identity Not on file Sexual Orientation Not on file documented as of this encounter Plan of Treatment Not on file documented as of this encounter Visit Diagnoses Diagnosis Chronic low back pain Lumbago documented in this encounter Care Teams Capacity Planning Manager Relationship Specialty Start Date End Date Zack Gandara MD PCP - General Family Practice 01/23/19 03/19/19 documented as of this encounter
--- OUTSIDE RECORDS SUMMARY | 2024-10-27 20:39 | XMS_ITS | Encounter Summary ---
Author Organization [facility] Address [address] [place] [address] Care Team Providers Care Bumboater Name Role Phone Zack Gandara MD Primary Care Provider Encounter Details Date Type Department Care Team (Latest Contact Info) Description 01/04/2006 Outpatient Historical [facility] Internal Medicine [address] [place] [phone] [place] [address] [address] Obstructive Sleep Apnea (Primary Dx); Unspecified Essential Hypertension; Obesity, Unspecified; Tobacco Use Disorder Social History Tobacco Use Types Packs/Day Years Used Date Smoking Tobacco: Never Assessed Comments Unknown Sex and Gender Information Value Date Recorded Sex Assigned at Not on file Legal Sex Female 4:09 AM COMMUNITY SUPPORT SPECIALIST Gender Identity Not on file Sexual Orientation Not on file documented as of this encounter Plan of Treatment Not on file documented as of this encounter Visit Diagnoses Diagnosis Obstructive sleep apnea- Primary Obstructive sleep apnea (adult) (pediatric) Unspecified essential hypertension Obesity, unspecified Tobacco use disorder documented in this encounter Care Teams Bumboater Relationship Specialty Start Date End Date Zack Gandara MD PCP - General Family Practice 01/23/19 03/19/19 documented as of this encounter
--- OUTSIDE RECORDS SUMMARY | 2024-10-27 20:39 | XMS_ITS | Encounter Summary ---
Author Organization [facility] Address [address] [place] [address] Care Team Providers Care Drill Press Operator Numerical Control Name Role Phone Zack Gandara MD Primary Care Provider [phone] Encounter Details Date Type Department Care Team (Late st Contact Info) Description 02/02/2010 Emergency [facility] [address] [place] [address] Ezekiel Gee PA NO ADDRESS ON FILE [...] on file Legal Sex Female 4:09 AM RESPIRATORY CARE PROGRAM DIRECTOR Gender Identity Not on file Sexual Orientation Not on file documented as of this encounter Plan of Treatment Not on file documented as of this encounter Visit Diagnoses Diagnosis Lumbago- Primary documented in this encounter Care Teams Drill Press Operator Numerical Control Relationship Specialty Start Date End Date Zack Gandara MD PCP - General Family Practice 01/23/19 03/19/19 documented as of this encounter
--- OUTSIDE RECORDS SUMMARY | 2024-10-27 20:39 | XMS_ITS | Encounter Summary ---
Author Organization [facility] Address [address] [place] [address] Care Team Providers Care Feller Hand Name Role Phone Zack Gandara MD Primary Care Provider Encounter Details Date Type Department Care Team (Late st Contact Info) Description 01/05/2007 Emergency [facility] Emergency Department [address] [place] [phone] Janel Fields, [facility] [address] [place] [phone] Acute Bronchitis (Primary Dx) Social History Tobacco Use Types Packs/Day Years Used Date Smoking Tobacco: Never Assessed Comments Unknown Sex and Gender Information Value Date Recorded Sex Assigned at Not on file Legal Sex Female 4:09 AM HOSPITAL CNA Gender Identity Not on file Sexual Orientation Not on file documented as of this encounter Plan of Treatment Not on file documented as of this encounter Visit Diagnoses Diagnosis Acute bronchitis- Primary documented in this encounter Care Teams Feller Hand Relationship Specialty Start Date End Date Zack Gandara MD PCP - General Family Practice 01/23/19 03/19/19 documented as of this encounter
--- OUTSIDE RECORDS SUMMARY | 2024-10-27 20:39 | XMS_ITS | Encounter Summary ---
Author Organization [facility] Address [address] [place] [address] Care Team Providers Care Microwave Remote Sensing Scientist Name Role Phone Zack Gandara MD Primary Care Provider Encounter Details Date Type Department Care Team (Late st Contact Info) Description 04/24/2006 Emergency [facility] Emergency Department [address] [place] [phone] Ilana Figueroa MD [address] [place] [phone] Other Chronic Pain (Primary Dx) Social History Tobacco Use Types Packs/Day Years Used Date Smoking Tobacco: Never Assessed Comments Unknown Sex and Gender Information Value Date Recorded Sex Assigned at Not on file Legal Sex Female 4:09 AM PHOTOGRAPHER NEWS Gender Identity Not on file Sexual Orientation Not on file documented as of this encounter Plan of Treatment Not on file documented as of this encounter Visit Diagnoses Diagnosis Other chronic pain- Primary documented in this encounter Care Teams Microwave Remote Sensing Scientist Relationship Specialty Start Date End Date Zack Gandara MD PCP - General Family Practice 01/23/19 03/19/19 documented as of this encounter
--- OUTSIDE RECORDS SUMMARY | 2024-10-27 20:39 | XMS_ITS | Encounter Summary ---
Author Organization [facility] Address [address] [place] [address] Care Team Providers Care Divine Healer Name Role Phone Zack Gandara MD Primary Care Provider Encounter Details Date Type Department Care Team (Late st Contact Info) Description 09/02/2005 Emergency [facility] [address] [place] [address] [place] [address] Juancarlos Obrien MD NO ADDRESS ON FILE Lumbago (Primary Dx) Social History Tobacco Use Types Packs/Day Years Used Date Smoking Tobacco: Never Assessed Comments Unknown Sex and Gender Information Value Date Recorded Sex Assigned at Not on file Legal Sex Female 4:09 AM DIAGRAMMER AND SEAMER Gender Identity Not on file Sexual Orientation Not on file documented as of this encounter Plan of Treatment Not on file documented as of this encounter Visit Diagnoses Diagnosis Lumbago- Primary documented in this encounter Care Teams Divine Healer Relationship Specialty Start Date End Date Zack Gandara MD PCP - General Family Practice 01/23/19 03/19/19 documented as of this encounter
--- OUTSIDE RECORDS SUMMARY | 2024-10-27 20:39 | XMS_ITS | Encounter Summary ---
Author Organization [facility] Address [address] [place] [address] Care Team Providers Care Shirt Finisher Name Role Phone Zack Gandara MD Primary Care Provider Encounter Details Date Type Department Care Team (Late st Contact Info) Description 02/05/2007 Emergency [facility] Emergency Department [address] [place] [phone] Ed, Physician NO ADDRESS ON FILE Armand Langford DO NO ADDRESS ON FILE Social History Tobacco Use Types Packs/Day Years Used Date Smoking Tobacco: Never Assessed Comments Unknown Sex and Gender Information Value Date Recorded Sex Assigned at Not on file Legal Sex Female 4:09 AM CAN LINE OPERATOR Gender Identity Not on file Sexual Orientation Not on file documented as of this encounter Plan of Treatment Not on file documented as of this encounter Visit Diagnoses Not on filedocumented in this encounter Care Teams Shirt Finisher Relationship Specialty Start Date End Date Zack Gandara MD PCP - General Family Practice 01/23/19 03/19/19 documented as of this encounter
--- OUTSIDE RECORDS SUMMARY | 2024-10-27 20:39 | XMS_ITS | Encounter Summary ---
Author Organization [facility] Address [address] [place] [address] Care Team Providers Care Form Worker Name Role Phone Zack Gandara MD Primary Care Provider [phone] Encounter Details Date Type Department Care Team (Latest Contact Info) Description 01/12/2007 Outpatient Historical [facility] Operating Room [address] [place] [address] Eloy Lopez MD [address] [place] [address] Morbid Obesity (CMS/HCC); Primary Localized Osteoarthrosis, Lower Leg; Personal History of Allergy to Sulfonamides; Procedure not Carried Out for Other Reasons Social History Tobacco Use Types Packs/Day Years Used Date Smoking Tobacco: Never Assessed Comments Unknown Sex and Gender Information Value Date Recorded Sex Assigned at Not on file Legal Sex Female 4:09 AM CREDIT REVIEW ANALYST Gender Identity Not on file Sexual Orientation Not on file documented as of this encounter Plan of Treatment Not on file documented as of this encounter Visit Diagnoses Diagnosis Morbid obesity (CMS/HCC) Morbid obesity Primary localized osteoarthrosis, lower leg Personal history of allergy to sulfonamides Procedure not carried out for other reasons documented in this encounter Care Teams Form Worker Relationship Specialty Start Date End Date Zack Gandara MD PCP - General Family Practice 01/23/19 03/19/19 documented as of this encounter
--- OUTSIDE RECORDS SUMMARY | 2024-10-27 20:39 | XMS_ITS | Encounter Summary ---
Author Organization [facility] Address [address] [place] [address] Care Team Providers Care Upkeep Worker Name Role Phone Zack Gandara MD Primary Care Provider [phone] Encounter Details Date Type Department Care Team (Late st Contact Info) Description 12/14/2007 Emergency [facility] [address] [place] [id number] Ed, Physician NO ADDRESS ON FILE Vinicio [...] on file Legal Sex Female 4:09 AM COMMUNICATIONS SCIENTIST Gender Identity Not on file Sexual Orientation Not on file documented as of this encounter Plan of Treatment Not on file documented as of this encounter Visit Diagnoses Not on filedocumented in this encounter Care Teams Upkeep Worker Relationship Specialty Start Date End Date Zack Gandara MD PCP - General Family Practice 01/23/19 03/19/19 documented as of this encounter
--- OUTSIDE RECORDS SUMMARY | 2024-10-27 20:39 | XMS_ITS | Encounter Summary ---
Author Organization [facility] Address [address] [place] [address] Care Team Providers Care Supervisor Tree Trimming Name Role Phone Zack Gandara MD Primary Care Provider [phone]- [phone] Encounter Details Date Type Department Care Team (Latest Contact Info) Description 08/15/2006 Outpatient Historical [facility] [address] [address] Juancarlos Obrien MD NO ADDRESS ON FILE Bipolar Disorder, Unspecified (CMS/HCC) (Primary Dx); Lumbago Social History Tobacco Use Types Packs/Day Years Used Date Smoking Tobacco: Never Assessed Comments Unknown Sex and Gender Information Value Date Recorded Sex Assigned at Not on file Legal Sex Female 4:09 AM DEATH SURVEYS CODER Gender Identity Not on file Sexual Orientation Not on file documented as of this encounter Plan of Treatment Not on file documented as of this encounter Visit Diagnoses Diagnosis Bipolar disorder, unspecified (CMS/HCC)- Primary Bipolar disorder, unspecified Lumbago documented in this encounter Care Teams Supervisor Tree Trimming Relationship Specialty Start Date End Date Zack Gandara MD PCP - General Family Practice 01/23/19 03/19/19 documented as of this encounter
--- OUTSIDE RECORDS SUMMARY | 2024-10-27 20:40 | XMS_ITS | Encounter Summary ---
Author Organization [facility] Address [address] [place] [address] Care Team Providers Care Development Scientist Name Role Phone Zack Gandara MD Primary Care Provider Encounter Details Date Type Department Care Team (Late st Contact Info) Description 06/13/2010 Emergency [facility] [address] [place] [address] Carito Proctor MD [address] [place] [address] Lumbago (Primary Dx) Social History Tobacco Use Types Packs/Day Years Used Date Smoking Tobacco: Every Day Cigarettes 1 15 Alcohol Use Standard Drinks/Week Comments No 0 (1 standard drink = 0.6 oz pur e alcohol) Comments No Sex and Gender Information Value Date Recorded Sex Assigned at Not on file Legal Sex Female 4:09 AM WELLNESS PROGRAM ADMINISTRATOR Gender Identity Not on file Sexual Orientation Not on file documented as of this encounter Plan of Treatment Not on file documented as of this encounter Visit Diagnoses Diagnosis Lumbago- Primary documented in this encounter Care Teams Development Scientist Relationship Specialty Start Date End Date Zack Gandara MD PCP - General Family Practice 01/23/19 03/19/19 documented as of this encounter
--- OUTSIDE RECORDS SUMMARY | 2024-10-27 20:40 | XMS_ITS | Clinical Summary ---
Author Organization [facility] Address [address] [place] [address] Phone Care Team Providers Care Upper Shaper Name Role Phone Unavailable Primary Care Provider Unavailabl e Allergies Active Allergy Reactions Criticality Noted Date Comments Ceftriaxone Hives High 09/17/2017 Ibuprofen Nausea and Vomiting Low 08/28/2010 Ketorolac Tromethamine Anaphylaxis,Hives High 2007 Lidocaine Rash Low Penicillins Hives High 12/06/2007 Prochlorperazine Edisylate Itching High 1 Propoxyphene N-Acetaminophen Nausea and Vomiting Low 05/20/2009 Sulfa (Sulfonamide Antibiotics) Hives High 11/0 09/2009 Tetracycline Hives High 12/06/2007 Tramadol Anaphylaxis,Hives [...] on file Legal Sex Female 4:09 AM NAIL GALVANIZER Gender Identity Not on file Sexual Orientation [...] PM CDT Pulse 107 01/23/2019 1:33 PM NAIL GALVANIZER Temperature 35.5 C (95.9 F) 04/24/2019 3:13 [...] Recently Relevant to Health Maintenance Insurance MEDICAID [place] Advance Directives For more information, please contact: [phone] * Full Code (Latest Code Status on File) Date Activated Date Inactivated Comments 09/18/2017 11:41 PM 09/21/2017 7:58 PM * Full Code Date Activated Date Inactivated Comments 03/10/2014 6:52 PM 03/11/2014 5:18 PM * Full Code Date Activated Date Inactivated Comments 03/10/2014 4:41 AM 03/10/2014 6:52 PM
--- OUTSIDE RECORDS SUMMARY | 2024-10-27 20:40 | XMS_ITS | Encounter Summary ---
Author Organization [facility] Address [address] [place] [address] Care Team Providers Care Nursing Coordinator Name Role Phone Zack Gandara MD Primary Care Provider [phone] Encounter Details Date Type Department Care Team (Late st Contact Info) Description 06/01/2007 Outpatient Historical [facility] Ed, Physician NO ADDRESS ON FILE Sterling Eli MD NO ADDRESS ON FILE Sabino Troncoso MD [address] [place] [address] Nausea Alone; Body Mass Index 40 and Over, Adult; Obesity, Unspecified; Dysthymic Disorder; Chronic Pain Syndrome; Tobacco Use Disorder Social History Tobacco Use Types Packs/Day Years Used Date Smoking Tobacco: Never Assessed Comments Unknown Sex and Gender Information Value Date Recorded Sex Assigned at Not on file Legal Sex Female 4:09 AM SUPERVISOR CEREAL Gender Identity Not on file Sexual Orientation [...] CDT) MONOCYTE 5 4 - 10 % LAB RBC MORPHOLOGY Abnormal(A ) Normal LAB BANDS 1 0 - 6 % LAB ANISOCYTOSIS 1+(A) None Seen [facility] LAB EOSINOPHILS 7(H) 0 - 3 % [facility] LAB LYMPHOCYTES 65(H) 24 - 44 % [facility] LAB PLATELET EST. Normal Normal [facility] LAB NEUTROPHILS, SEG 22(L) 36 - 66 % LAB Blood specimen (specimen) 06/04/2007 3:50 AM CDT 06/04/2007 4:01 AM CDT Narrative LAB - 06/04/2007 5:10 AM CDT Differential ordered by policy. Sabino Troncoso MD HEMATOLOGY ORDERABLES COM Final Result Performing Organization Address [facility] Co de Phone Number LAB [address] [place] [address] * (ABNORMAL) CBC WITH DIFFERENTIAL (06/04/2007 3:50 AM CDT) HEMOGLOBIN 11.7(L) 12.0 - 16.0 g/dL LAB RDW 15.0(H) 11.0 - 14.5 % LAB WBC 9.5 4.5 - 11.0 K/ul LAB MCH 28.7 27.0 - 34.0 pg LAB HEMATOCRIT 37.2 36.0 - 46.0 % LAB PLATELETS 151 140 - 440 K/ul LAB RBC 4.07(L) 4.20 - 5.40 Mil/ul LAB MCHC 31.5 30.0 - 35.0 g/dL LAB MCV 91.4 84.0 - 103.0 Fl LAB MPV 9.8 8.9 - 12.8 Fl LAB Blood specimen (specimen) 06/04/2007 3:50 AM CDT 06/04/2007 4:01 AM CDT Sabino Troncoso MD HEMATOLOGY ORDERABLES Fin al Result Performing Organization Address City/[facility]/ZIP Co de Phone Number LAB [address] [place] [address] * URINE CULTURE (06/03/2007 4:50 PM CDT) FINAL REPORT 1000 CFU/ml Gram positive cocci Further workup on non-catheterized urine cultures on quantities <5000 col/ml not indicated. Please notify Microbiology if further identification and/or susceptibility requested. INTERFACE SYSTEM 06/03/2007 4:50 PM CDT 06/03/2007 4:50 PM CDT Sabino Troncoso MD MICROBIOLOGY - GENERAL OR DERABLES Final Result Performing Organization Address [facility] de Phone Number INTERFACE SYSTEM Refer to clinic/hospital department * URINE CULTURE (06/02/2007 11:31 AM CDT) FINAL REPORT Mixed gram positive olga suggestive of genital/skin olga. If clinically indicated, please submit an appropriately collected specimen. INTERFACE SYSTEM 06/02/2007 11:3 1 AM CDT 06/02/2007 11:31 AM CDT Sabino Troncoso MD MICROBIOLOGY - GENERAL OR DERABLES Final Result Performing Organization Address [facility] Phone Number INTERFACE SYSTEM Refer to clinic/hospital department * (ABNORMAL) COMPREHENSIVE METABOLIC PANEL (06/02/2007 4:05 AM CDT) GLUCOSE 89 70 - 110 mg/dL LAB ALKALINE PHOSPHATASE 212(H) 25 - 100 U/L LAB CHLORIDE 113(H) 95 - 110 mEq/L LAB OSMOLALITY, CALCULATED 286 275 - 295 mOsm/Kg LAB GLOBULIN (CALC) 2.9 2.4 - 3.9 g/dL LAB TOTAL PROTEIN 5.7(L) 6.3 - 8.2 g/dL LAB SODIUM 141 136 - 145 mEq/L LAB BILIRUBIN TOTAL 0.2(L) 0.3 - 1.2 mg/dL LAB CO2 23 22 - 32 mmol/l LAB BUN 5(L) 7 - 17 mg/dL LAB AST 75(H) 8 - 33 U/L [facility] LAB ALBUMIN/GLOBULIN RATIO 1.0 1.0 - 2.3 LAB POTASSIUM 3.7 3.5 - 5.0 mEq/L LAB ANION GAP 9 9 - 20 mEq/L LAB ALBUMIN 2.8(L) 3.5 - 5.0 g/dL LAB CREATININE 0.5(L) 0.7 - 1.2 mg/dL LAB ALT 23 4 - 36 IU/L LAB CALCIUM 8.1(L) 8.4 - 10.5 mg/dL LAB Blood specimen (specimen) 06/02/2007 4:05 AM CDT 06/02/2007 4:21 AM CDT Sabino Troncoso MD CHEMISTRY ORDERABLES Chichi conley Result Performing Organization Address City/State/[facility] Co de Phone Number LAB [address] [place] [address] * (ABNORMAL) CBC WITH DIFFERENTIAL (06/02/2007 4:05 AM CDT) LYMPHOCYTE ABSOLUTE 8.7(H) 1.2 - 4.0 K/ul LAB LYMPHOCYTES 73.1(H) 24.0 - 44.0 % LAB RBC 4.03(L) 4.20 - 5.40 Mil/ul LAB MCHC 31.8 30.0 - 35.0 g/dL LAB BASOPHILS 3.0(H) 0.0 - 1.0 % LAB MCV 90.6 84.0 - 103.0 Fl LAB BASOPHILS ABSOLUTE 0.4(H) 0.0 - 0.2 K/ul LAB MPV 10.3 8.9 - 12.8 Fl LAB MONOCYTES 11.7(H) 2.0 - 10.0 % LAB HEMOGLOBIN 11.6(L) 12.0 - 16.0 g/dL LAB MONOCYTE ABSOLUTE 1.4(H) 0.1 - 0.6 K/ul LAB RDW 14.7(H) 11.0 - 14.5 % LAB NEUTROPHILS 11.1(L) 42.2 - 75.2 % LAB WBC 11.8(H) 4.5 - 11.0 K/ul LAB NEUTROPHIL ABSOLUTE 1.3(L) 2.0 - 8.0 K/ul LAB MCH 28.8 27.0 - 34.0 pg LAB EOSINOPHIL ABSOLUTE 0.1 0.0 - 0.7 K/ul LAB EOSINOPHILS 1.1 0.0 - 7.0 % LAB HEMATOCRIT 36.5 36.0 - 46.0 % LAB PERIPHERAL BLOOD SMEAR REVIEW Smear Reviewed LAB Comment: Most lymphs atypical. PLATELETS 144 140 - 440 K/ul LAB Blood specimen (specimen) 06/02/2007 4:05 AM CDT 06/02/2007 4:20 AM CDT Sabino Troncoso MD HEMATOLOGY ORDERABLES Rohit sabi Performing Organization Address City/[facility] Co de Phone Number LAB [address] [place] [address] * CLOSTRIDIUM DIFFICILE TOXIN (06/01/2007 9:31 PM CDT) C DIFFICILE TOXIN Negative Negative LAB 06/01/2007 9:31 PM CDT 06/01/2007 9:31 PM CDT Sabino Troncoso MD MICROBIOLOGY - GENERAL OR DERABLES Final Result Performing Organization Address [facility] Co de Phone Number LAB [address] [place] [address] * CT ABDOMEN PELVIS W CONTRAST (06/01/2007 [...] By: Hannah Pendleton M.D. Date Signed: 06/01/07 [facility] Procedure Note Hannah Pendleton S - 06/01/2007 [...] 11:12 AM CDT) BLAST 1(H) <=0 % LAB BANDS 2 0 - 6 % LAB MONOCYTE 6 4 - 10 % LAB PLATELET EST. Normal Normal [facility] LAB LYMPHOCYTES 44 24 - 44 % [facility] LAB NEUTROPHILS, SEG 28(L) 36 - 66 % LAB RBC MORPHOLOGY Normal Normal [facility] LAB BASOPHILS 1 0 - 1 % LAB ATYPICAL LYMPHOCYTE 18(H) <=0 % LAB Blood specimen (specimen) 06/01/2007 11:12 AM CDT 06/01/2007 11:15 AM CDT Narrative LAB - 06/01/2007 11:34 AM CDT Differential ordered by policy. us Sterling Eli MD HEMATOLOGY ORDERABLES COM Final Result LAB [address] [place] [address] * (ABNORMAL) CBC WITH DIFFERENTIAL (06/01/2007 11:12 AM CDT) WBC 17.9(H) 4.5 - 11.0 K/ul LAB MCH 29.4 27.0 - 34.0 pg LAB HEMATOCRIT 42.8 36.0 - 46.0 % LAB PLATELETS 168 140 - 440 K/ul LAB RBC 4.76 4.20 - 5.40 Mil/ul LAB MCHC 32.7 30.0 - 35.0 g/dL LAB MCV 89.9 84.0 - 103.0 Fl LAB MPV 10.2 8.9 - 12.8 Fl LAB HEMOGLOBIN 14.0 12.0 - 16.0 g/dL LAB RDW 14.5 11.0 - 14.5 % LAB Blood specimen (specimen) 06/01/2007 11:12 AM CDT 06/01/2007 11:15 AM CDT us Sterling Eli MD HEMATOLOGY ORDERABLES Edit ed Performing Organization Address City/State/[facility] Co de Phone Number LAB [address] [place] [address] * (ABNORMAL) COMPREHENSIVE METABOLIC PANEL (06/01/2007 11:12 AM CDT) POTASSIUM 4.0 3.5 - 5.0 mEq/L LAB GLOBULIN (CALC) 3.9 2.4 - 3.9 g/dL LAB ALBUMIN 3.6 3.5 - 5.0 g/dL LAB CREATININE 0.7 0.7 - 1.2 mg/dL LAB ALT 18 4 - 36 IU/L LAB CALCIUM 9.0 8.4 - 10.5 mg/dL LAB OSMOLALITY, CALCULATED 280 275 - 295 mOsm/Kg LAB GLUCOSE 95 70 - 110 mg/dL LAB ALKALINE PHOSPHATASE 218(H) 25 - 100 U/L LAB CHLORIDE 108 95 - 110 mEq/L LAB ALBUMIN/GLOBULIN RATIO 0.9(L) 1.0 - 2.3 LAB TOTAL PROTEIN 7.5 6.3 - 8.2 g/dL LAB SODIUM 137 136 - 145 mEq/L LAB BILIRUBIN TOTAL 0.3 0.3 - 1.2 mg/dL LAB BUN 7 7 - 17 mg/dL LAB CO2 24 22 - 32 mmol/l LAB ANION GAP 9 9 - 20 mEq/L LAB AST 56(H) 8 - 33 U/L [facility] LAB Blood specimen (specimen) 06/01/2007 11:12 AM CDT 06/01/2007 11:15 AM CDT Sterling Eli MD CHEMISTRY ORDERABLES Final Result Performing Organization Address [facility] Phone Number LAB [address] [place] [address] * LIPASE (06/01/2007 11:12 AM CDT) LIPASE 28 6 - 51 U/L [facility] LAB Blood specimen (specimen) 06/01/2007 11:12 AM CDT 06/01/2007 11:15 AM CDT Sterling Eli MD CHEMISTRY ORDERABLES Final Result Performing Organization Address [facility] Number LAB [address] [place] [address] * (ABNORMAL) URINALYSIS MICROSCOPY ONLY (06/01/2007 11:10 AM CDT) HYALINE CAST 3-5(A) 0 - 2 [facility] LAB WBC URINE 0-2 0 - 2 LAB BACTERIA UA Many(A) None Seen [facility] LAB RBC UA None Seen 0 - 2 LAB Urine specimen (specimen) 06/01/2007 11:10 AM CDT 06/01/2007 11:13 AM CDT Narrative LAB - 06/01/2007 11:28 AM CDT Microscopic ordered by policy Sterling Eli MD URINE ORDERABLES Final Res ult Performing Organization Address [facility] de Phone Number LAB [address] [place] [address] * ICTOTEST (06/01/2007 11:10 AM CDT) ICTO Negative Negative LAB Urine specimen (specimen) 06/01/2007 11:10 AM CDT 06/01/2007 11:13 AM CDT Narrative LAB - 06/01/2007 11:28 AM CDT Bili verified by ictotest Sterling Eli MD URINE ORDERABLES Final Res ult Performing Organization Address [facility] de Phone Number LAB [address] [place] [address] * (ABNORMAL) URINALYSIS (06/01/2007 11:10 AM CDT) PH UA 5.0 5.0 - 9.0 LAB NITRITE UA NEGATIVE NEGATIVE [facility] LAB SPECIFIC GRAVITY UA 1.034 <=1.005 LAB COLOR UA Yellow Straw LAB LEUKOCYTE ESTERASE UA NEGATIVE NEGATIVE LAB BLOOD UA NEGATIVE NEGATIVE LAB CLARITY UA SL CLOUDY Clear [facility] LAB GLUCOSE UA NEGATIVE NEGATIVE [facility] LAB UROBILINOGEN UA 1.0(A) 0.2 LAB MICRO EXAM Yes(A) No [facility] LAB PROTEIN UA 30 mg/dl(A) NEGATIVE [facility] LAB KETONES UA Trace(A) NEGATIVE [facility] LAB Urine specimen (specimen) 06/01/2007 11:10 AM CDT 06/01/2007 11:13 AM CDT Sterling Eli MD URINE ORDERABLES Final Res ult Performing Organization Address [facility] Co de Phone Number LAB [address] [place] [address] documented in this encounter Visit Diagnoses Diagnosis Nausea alone Body mass index 40 and over, adult Body Mass Index 40 and over, adult Obesity, unspecified Dysthymic disorder Chronic pain syndrome Tobacco use disorder documented in this encounter Care Teams Nursing Coordinator Relationship Specialty Start Date End Date Zack Gandara MD PCP - General Family Practice 01/23/19 03/19/19 documented as of this encounter
--- OUTSIDE RECORDS SUMMARY | 2024-10-27 20:40 | XMS_ITS | Encounter Summary ---
Author Organization [facility] Address [address] [place] [address] Care Team Providers Care Layer Out Name Role Phone Zack Gandara MD Primary Care Provider Encounter Details Date Type Department Care Team (Late st Contact Info) Description 05/28/2010 Emergency [facility] [address] 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
--- OUTSIDE RECORDS SUMMARY | 2024-10-27 20:40 | XMS_ITS | Encounter Summary ---
Author Organization [facility] Address [address] [place] [address] Care Team Providers Care Superintendent Commissary Name Role Phone Zack Gandara MD Primary Care Provider [phone] Encounter Details Date Type Department Care Team (Late st Contact Info) Description 03/21/2007 Outpatient Historical [facility] 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 I gave her [employer] handouts for both of those entities. I [...] , P, 136 Job #: Document #: [id number] cc: Atul Rudd M.D. T LICENSING CLERK documented in this encounter Plan of Treatment Not on file documented as of this encounter Visit Diagnoses Not on filedocumented in this encounter Care Teams Superintendent Commissary Relationship Specialty Start Date End Date Zack Gandara MD PCP - General Family Practice 01/23/19 03/19/19 documented as of this encounter
--- OUTSIDE RECORDS SUMMARY | 2024-10-27 20:40 | XMS_ITS | Encounter Summary ---
Author Organization [facility] Address [address] [place] [address] Care Team Providers Care Campus Recruiting Intern Name Role Phone Zack Gandara MD Primary Care Provider [phone] Encounter Details Date Type Department Care Team (Late st Contact Info) Description 03/08/2007 Emergency [facility] Emergency Department [address] 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
--- OUTSIDE RECORDS SUMMARY | 2024-10-27 20:40 | XMS_ITS | Encounter Summary ---
Author Organization [facility] Address [address] [place] [address] Care Team Providers Care Scientific Informatics Project Leader Name Role Phone Zack Gandara MD Primary Care Provider [phone] Encounter Details Date Type Department Care Team (Late st Contact Info) Description 02/21/2007 Outpatient Historical [facility]- 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
--- NOTE | 2024-10-27 21:58 | XRR_ITS ---
PROCEDURE INFORMATION: Exam: XR Chest Exam date and time: 10/27/2024 11:10 PM Age: 58 years old Clinical indication: Other: Syncope; Syncopal episode TECHNIQUE: Imaging protocol: Radiologic exam of the chest. Views: 1 view. COMPARISON: CR XR chest 1V portable [id number] 06/05/2024 6:17 PM FINDINGS: Lungs: Mild interstitial prominence is noted in the central and lower lungs. Pleural spaces: Unremarkable. No pleural effusion. No pneumothorax. Heart/Mediastinum: The heart is mildly enlarged with the AP view, which may be artifactual or represent a component of mild cardiomegaly. Bones/joints: Unremarkable. XR/XR chest 1V portable [id number] IMPRESSION: Findings most consistent with mild pulmonary vascular congestion or interstitial pneumonia.
[2024-10-27 23:16] LABS: Hematocrit 40.2 % (36-47); Hemoglobin 12.60 g/dL (11.27-16.99); Mean Corpuscular HGB Conc 31.3 g/dL (30-55); Mean Corpuscular Hemoglobin 29.3 pg (27-33); Mean Corpuscular Volume 93.5 fl (85-98); Nucleated Red Blood Cells % 0 %; Platelet Count 207 10^3/cmm (157-399); Red Blood Count 4.30 10^6/uL (3.85-5.65); White Blood Count 9.86 10^3/uL (3.29-11.43)
[2024-10-27 23:29] LABS: Alanine Aminotransferase 23 U/L (0-33); Albumin Level 4.1 g/dL (3.5-5.2); Alkaline Phosphatase 71 U/L (35-105); Anion Gap 18.5 (5-19); Aspartate Amino Transferase 42 U/L (0-32); Blood Urea Nitrogen 15 mg/dL (6-20); Calcium 9.5 mg/dL (8.5-10.5); Carbon Dioxide 25 mmol/L (22-29); Chloride 105 mmol/L (98-107); Creatinine Clr Calc Pharmacy 154.4522; Globulin 3.4 g/dL (1.3-4.6); Glucose 118 mg/dL (65-115); Osmolality Calculated 298 mOsm/kg (285-295); Potassium 5.5 mmol/L (3.5-5.1); Sodium 143 mmol/L (136-145); Total Protein 7.5 g/dL (6.6-8.7)
[2024-10-27 23:32] LABS: Acetaminophen < 5.0 ug/mL (10-30); Salicylate < 0.3 mg/dL (3-10)
[2024-10-27 23:44] LABS: Base Excess VBG 1.1 mmol/L (-3.0-3.0); Blood Gas Operator Identificat SAM; Blood Gas Sample Site Not specified; Blood Gas Sample Type Venous; HCO3 VBG 27.6 mmol/L (24-28); PCO2 VBG 50.9 mmHg (41-51); PO2 VBG 76.3 mmHg (25-40); Venous Blood Gas Hematocrit 38.7 % (37-47); pH VBG 7.34 (7.32-7.42)
--- NOTE | 2024-10-27 23:46 | W.ED.AMS ---
HPI - Altered Mental Status General: Chief Complaint: Altered Mental Status Stated Complaint: ams Time Seen by Provider: 10/27/24 22:55 History of Present Illness: Patient is a 58-year-old female that presented to ED due to left hip pain. This has been occurring chronically. On the weekend, patient was unresponsive unless there is a bump in the road, or she had stimulus. At bedside, patient complains of her left chronic hip pain without change. She has not had any falls. She has no sensation changes. As she has fallen asleep, and I have woken her back up, upon awaking her, she has to take her own pain medicine. Selected Entries 10/27/24 20:36 ED Triage Comment arrives to triage with [facility] from [facility] report that they were called out for complicati ons of her DM. EMS report [phone] in triage. Pt th en told EMS report edly that she is h aving severe left hip pain and has n ot had her pain me dication today. Em s report that pt w ould become unre ssponsive enroute and wake up mccollum al rub or hitting a bump in the road . Pt a/o x 4 and states that her d aughter in law karely led 911 because sh e can 't stay awak e and her chronic hip pain is bother ing her. Pt tells me that she last t ook Morphine 30mg and Hydrcodone 7.5 6 hrs ago. Pt rep orts a fall last w [place] that has incre ased the hip pain and groin pain. De nies burning/ pain with urination. Pt countinously f alling asleep in t riage. Associated symptoms: Reports depression Related Data Home Medications ?Medication ?Instructions ?Recorded ?Confirmed insulin lispro 100 unit/mL See Rx Instructions .Route .COMPLEX 04/22/24 08/23/24 subcutaneous pen (Admelog SoloStar U-100 Insulin lispro) Previous Rx's ?Medication ?Instructions ?Recorded manual wheelchair #1 ea 10/03/19 TENS unit and equipment #1 ea 10/01/22 wheelchair #1 ea 10/14/22 CPAP 6-16cm setting #1 ea 11/23/22 CPAP mask, tubing, supplies #1 ea 11/23/22 Left wrist brace #1 ea 12/06/22 lancets #100 ea 01/24/23 lancets #200 ea 02/21/23 motorized electric scooter #1 ea 02/21/23 blood sugar diagnostic (Blood #200 ea 03/04/23 Glucose Test strips) blood sugar diagnostic (Blood #200 ea 03/16/23 Glucose Test strips) lancets #200 ea 03/16/23 naloxone 4 mg/actuation nasal 4 mg intranasal Q2M PRN opioid 03/16/23 spray (Narcan) overdose #2 ea pen needle, diabetic 30 gauge x #100 ea 03/17/23/ (Pen Needle) dexcom G7 transmitter #1 ea 07/29/23 albuterol sulfate 90 mcg/actuation 2 puff inhalation Q6H PRN 08/17/23 aerosol inhaler shortness of breath or wheezing #8.5 grams aspirin 81 mg chewable tablet 81 mg PO QAM #60 tabs 08/17/23 escitalopram oxalate 20 mg tablet 20 mg PO QAM #90 tabs 11/22/23 (Lexapro) loperamide 2 mg tablet (Imodium 2 mg PO QID PRN loose stool #30 01/18/24 A-D) tabs blood-glucose,pilot teacher,cont #1 ea 03/06/24 (Dexcom G7 Railroad Car 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) atorvastatin 40 mg tablet (Lipitor) 40 mg PO BEDTIME #90 tabs 04/05/24 nystatin 100,000 unit/gram topical 1 applic topical BID 2 weeks #30 05/01/24 ointment grams cetirizine 10 mg tablet (Zyrtec) 10 mg PO DAILY PRN allergy 06/21/24 symptoms #90 tabs portable oxygen concentrator #1 ea 06/21/24 famotidine 20 mg tablet 20 mg PO QDAY #90 tabs 06/26/24 glipizide 10 mg tablet 10 mg PO DAILY #90 tabs 06/27/24 meloxicam 15 mg tablet 15 mg PO QAM #90 tabs 06/27/24 insulin glargine 100 unit/mL (3 25 unit (0.25 mL) SUBCUT QAM #15 mL 07/17/24 mL) subcutaneous pen (Lantus Solostar U-100 Insulin) gabapentin 600 mg tablet 600 mg PO TID #270 tabs 07/30/24 metformin 500 mg tablet 1,000 mg (2 x 500 mg) PO BID #360 07/30/24 tabs baclofen 10 mg tablet 10 mg PO BID #60 tabs 08/23/24 tirzepatide (weight loss) 5 mg/0.5 5 mg (0.5 mL) SUBCUT .qweekly #2 mL 08/23/24 mL subcutaneous pen injector (Zepbound) duloxetine 30 mg capsule,delayed 30 mg PO BID #180 caps 08/28/24 release (Cymbalta) promethazine 25 mg tablet 25 mg PO TID PRN Nausea And 09/11/24 Vomiting #90 tabs tiotropium bromide 18 mcg capsule 1 cap inhalation DAILY #60 09/11/24 with inhalation device (Spiriva inhalations with HandiHaler) benzonatate 100 mg capsule 100 mg PO BID PRN Cough #60 caps 09/17/24 fluticasone propionate 50 2 spray intranasal DAILY #16 grams 09/17/24 mcg/actuation nasal spray,suspension (Flonase Allergy Relief) quetiapine 150 mg tablet,extended 150 mg PO BEDTIME #90 tabs 09/24/24 release 24 hr (Seroquel XR) blood-glucose sensor (Dexcom G7 #3 ea 10/16/24 Sensor device) hydrocodone 7.5 mg-acetaminophen 1 tab PO BID PRN pain 30 days #60 10/19/24 325 mg tablet tabs morphine 30 mg tablet,extended 30 mg PO .qdaily pain 30 days #30 10/19/24 release (MS Contin) tabs nicotine 14 mg/24 hr daily 1 patch transdermal DAILY #28 ea 10/26/24 transdermal patch Allergies Allergy/AdvReac Type Severity Reaction Status Date / Time ketorolac (From Toradol) Allergy Severe ALGY-Anaphy Verified 10/27/24 20:48 laxis Penicillins Allergy Severe ALGY-Anaphy Verified 10/27/24 20:48 laxis Sulfa (Sulfonamide Allergy Severe ALGY-Anaphy Verified 10/27/24 20:48 Antibiotics) laxis tetracycline Allergy Severe ALGY-Anaphy Verified 10/27/24 20:48 laxis lidocaine Allergy ALGY-Hives Verified 10/27/24 20:48 tramadol (From Ultram) Allergy ALGY-Difficulty Verified 10/27/24 20:48 Breathing Review of Systems General: Reports: 10 or more systems reviewed and unremarkable except in HPI and below Eyes: Denies: change in vision or blurry vision ENMT: Denies: throat pain or mouth pain Card: Denies: chest pain or palpitations Resp: Denies: dyspnea or productive cough GI: Denies: abdominal pain, nausea or vomiting : Denies: flank pain or difficulty voiding Musc: Reports: back pain and joint pain; Denies: neck pain, extremity pain or joint swelling Skin/Breast: Denies: rash or pruritus Neuro: Reports: lack of coordination and difficulty walking; Denies: headache(s), numbness in extremities, sensory changes, dizziness, vertigo, Slurred speech present, difficulty communicating thoughts or restless legs Psych: Reports: anxiety and depression PFSH ED PFSH: Medical History (Updated 10/27/24 @ 23:53 by RHONDA Boyd) Allergic conjunctivitis and rhinitis Adrenal mass Type 2 diabetes mellitus Hospital discharge follow-up Chronic hypercapnic respiratory failure Chronic respiratory failure with hypoxia Dyslipidemia Neuropathic pain, leg, bilateral Osteoarthritis IVELISSE (obstructive sleep apnea) GERD without esophagitis Chronic low back pain Pulmonary nodules Rheumatoid arthritis History of stroke Chronic cystitis delivery delivered Constipation Hematochezia Insomnia Community acquired pneumonia History of bipolar disorder History of hypertension Surgical History History of incisional hernia repair History of hysterectomy History of cholecystectomy History of tonsillectomy History of knee surgery Family History Mother , at age 78 COVID-19 Brother , at age 58 Cancer Colon Father , at age 45 Car occupant injured in traffic accident Cancer Colon Family/Other Cancer Paternal-lung Other Chronic kidney disease (CKD) Dementia Diabetes Hyperlipidemia Hypertension Lung disease Stroke Denies family history of CAD (coronary artery disease) Clotting disorder Psychiatric illness Anesthesia complication Bleeding disorder Social History Smoking and tobacco/nicotine status: current every day tobacco/nicotine user cigarettes Packs smoked per day: 0.5 Years cigarettes smoked: 30 [ Other cigarette details: Currently smoking 6-7/day] Quit status (tobacco/nicotine): considering quitting Alcohol intake: never Substance/Drug Use: former Adopted: No Lives independently: Yes Household members: spouse Marital status: Number of grandchildren: 2 Current occupational status: disabled Special sherine needs: No Agree to transfusion: Yes Female Reproductive History: Spontaneous abortions: No Physical Exam Const: COMMON NORMALS: no acute distress and alert GENERAL APPEARANCE: cooperative; not in distress, not anxious and not lethargic NUTRITIONAL APPEARANCE: obese morbidly obese ORIENTATION/CONSCIOUSNESS: Yes awake, Yes oriented to person, Yes oriented to place and Yes oriented to time; not confused and not lethargic HENMT: COMMON NORMALS: normocephalic and atraumatic HEAD & SCALP: normocephalic and atraumatic Neck/C-Spine: COMMON NORMALS: full ROM, no lymphadenopathy and supple Chest: COMMONS NORMALS: normal inspection of the chest and normal palpation of entire chest wall GI: COMMON NORMALS: Normal to inspection, nondistended, normoactive bowel sounds present, Soft to palpation and non-tender PALPATION: Yes Soft to palpation : COMMON NORMALS: Yes no CVA tenderness BLADDER/KIDNEY EXAM: Yes no CVA tenderness Back/Pelvis: COMMON NORMALS: no CVA tenderness Extremity: COMMON NORMALS: normal to inspection, full ROM and capillary refill normal GENERAL: Yes normal exam except as noted Neuro: SENSORIUM/ORIENTATION: Yes alert, Yes oriented to person, Yes oriented to place, Yes oriented to time and No lethargic Psych: COMMON NORMALS: mental status grossly normal, Normal thought process present, cooperative, normal affect and speech normal SPEECH: Yes normal speech THOUGHT PROCESS: Normal thought process present Course Vital Signs: Vital signs: Vital Signs Temperature 98.2 F 10/27/24 20:36 Pulse Rate 97 10/27/24 20:36 Respiratory Rate 18 10/27/24 20:36 Blood Pressure 108/65 10/27/24 20:36 Pulse Oximetry 94 10/27/24 20:36 Oxygen Delivery Me thod Room Air 10/27/24 20:36 MDM - Altered Mental Status Medical Decision Making As discussed with patient, it is dangerous to have this much narcotics on board with having to be stimulated multiple times to wake up. Her ABG shows a pH of 7.34, with pCO2 of 51. This is most likely a product of narcotic use. Patient has Narcan at home. I have recommended she not continue her narcotics today. Patient has awakened and had a good conversation with me. I have discussed this with her candidly not to take any more narcotics today. Will give her Kayexalate due to her potassium of 5.5, and have her repeat her labs on Tuesday. Lab Data 10/27/24 23:07 10/27/24 23:07 Laboratory Results WBC 9.86 10^3/uL (3.29-11.43) 10/27/24 23:07 RBC 4.30 10^6/uL (3.85-5.65) 10/27/24 23:07 Hgb 12.60 g/dL (11.27-16.99) 10/27/24 23:07 Hct 40.2 % (36-47) 10/27/24 23:07 MCV 93.5 fl (85-98) 10/27/24 23:07 MCH 29.3 pg (27-33) 10/27/24 23:07 MCHC 31.3 g/dL (30-55) 10/27/24 23:07 RDW 13.3 % (12.1-15.1) 10/27/24 23:07 Plt Count 207 10^3/cmm (157-399) 10/27/24 23:07 MPV 9.9 fL (7.4-10.4) 10/27/24 23:07 Neut % (Auto) 45.9 % 10/27/24 23:07 Lymph % (Auto) 39.8 % 10/27/24 23:07 Rush % (Auto) 10.5 % 10/27/24 23:07 Eos % (Auto) 2.9 % 10/27/24 23:07 Baso % (Auto) 0.6 % 10/27/24 23:07 Neut # (Auto) 4.52 10^3/uL (1.8-7.7) 10/27/24 23:07 Lymph # (Auto) 3.9 10^3/uL (0.8-4.8) 10/27/24 23:07 Rush # (Auto) 1.0 10^3/uL (0.2-0.9) H 10/27/24 23:07 Eos # (Auto) 0.3 10^3/uL (0.0-0.8) 10/27/24 23:07 Baso # (Auto) 0.1 10^3/uL (0.0-0.1) 10/27/24 23:07 Nucleated RBC % (auto) 0 % 10/27/24 23:07 Nucleated RBCs # 0.0 /100WBC 10/27/24 23:07 Specimen Type Venous 10/27/24 23:29 Sample Site Not specified 10/27/24 23:29 Cameron Test N/a 10/27/24 23: VBG pH 7.34 (7.32-7.42) 10/27/24 23: VBG pCO2 50.9 mmHg (41-51) 10/27/24 23: VBG pO2 76.3 mmHg (25-40) H 10/27/24: VBG HCO3 27.6 mmol/L (24-28) 10/27/24: VBG Base Excess 1.1 mmol/L (-3.0-3.0) 10/27/24: VBG Hematocrit 38.7 % (37-47) 10/27/24 23:29 Family Medicine Chair ID Pancho 10/27/24 23:29 Sodium 143 mmol/L (136-145) 10/27/24 23:07 Potassium 5.5 mmol/L (3.5-5.1) H 10/27/24 23:07 Chloride 105 mmol/L (98-107) 10/27/24 23:07 Carbon Dioxide 25 mmol/L (22-29) 10/27/24 23:07 Anion Gap 18.5 (5-19) 10/27/24 23:07 BUN 15 mg/dL (6-20) 10/27/24 23:07 Creatinine 0.6 mg/dL (0.5-0.9) 10/27/24 23:07 GFR Calculation 102.3 mL/min (90-130) 10/27/24 23:07 Glucose 118 mg/dL (65-115) H 10/27/24 23:07 POC Glucose 134 mg/dL (70-110) H 10/27/24 20:43 Calculated Osmolality 298 mOsm/kg (285-295) H 10/27/24 23:07 Calcium 9.5 mg/dL (8.5-10.5) 10/27/24 23:07 Total Bilirubin 0.2 mg/dL (0.15-1.2) 10/27/24 23:07 AST 42 U/L (0-32) H 10/27/24 23:07 ALT 23 U/L (0-33) 10/27/24 23:07 Alkaline Phosphatase 71 U/L (35-105) 10/27/24 23:07 Total Protein 7.5 g/dL (6.6-8.7) 10/27/24 23:07 Albumin 4.1 g/dL (3.5-5.2) 10/27/24 23:07 Globulin 3.4 g/dL (1.3-4.6) 10/27/24 23:07 Salicylates < 0.3 mg/dL (3-10) L 10/27/24 23:07 Acetaminophen < 5.0 ug/mL (10-30) L 10/27/24 23:07 XR interpretation done by ED provider, pending radiology final review Discharge Plan Discharge Patient Disposition: Home Clinical Impression: Acute hyperkalemia, Hypersomnia due to drug Condition: Stable Prescriptions: No Action (DME) manual wheelchair See Rx Instructions .Route .MEDSUPPLY Qty: 1 0RF Rx Instructions: As directed (DME) TENS unit and equipment See Rx Instructions .Route .MEDSUPPLY Qty: 1 0RF Rx Instructions: As directed (DME) Left wrist brace See Rx Instructions .Route .MEDSUPPLY Qty: 1 0RF Rx Instructions: As directed (DME) lancets Misc See Rx Instructions .Route Qty: 100 0RF Rx Instructions: As directed (DME) lancets Misc See Rx Instructions .MEDSUPPLY Qty: 200 12RF Rx Instructions: Use as directed to prick skin for blood sugar checks (DME) motorized electric scooter See Rx Instructions .Route .MEDSUPPLY Qty: 1 0RF Rx Instructions: As directed (DME) Blood Glucose Test Strip See Rx Instructions .MEDSUPPLY Qty: 200 12RF Rx Instructions: Use as directed with glucometer to check blood sugar (DME) lancets Misc See Rx Instructions .MEDSUPPLY Qty: 200 12RF Rx Instructions: Use as directed to prick skin for blood sugar checks naloxone [Narcan] 4 mg/actuation spray,non-aerosol 4 mg intranasal Q2M PRN (Reason: opioid overdose) Qty: 2 0RF (DME) dexcom G7 transmitter See Rx Instructions .Route .MEDSUPPLY Qty: 1 2RF Rx Instructions: As directed escitalopram oxalate [Lexapro] 20 mg tablet 20 mg PO QAM Qty: 90 1RF loperamide [Imodium A-D] 2 mg tablet 2 mg PO QID PRN (Reason: loose stool) Qty: 30 0RF cetirizine [Zyrtec] 10 mg tablet 10 mg PO DAILY PRN (Reason: allergy symptoms) Qty: 90 1RF (DME) portable oxygen concentrator See Rx Instructions .Route .MEDSUPPLY Qty: 1 0RF Rx Instructions: As directed baclofen 10 mg tablet 10 mg PO BID Qty: 60 3RF Zepbound 5 mg/0.5 mL pen injector 5 mg SUBCUT .qweekly Qty: 2 2RF (DME) wheelchair See Rx Instructions .Route .MEDSUPPLY Qty: 1 0RF Rx Instructions: As directed (DME) CPAP 6-16cm setting See Rx Instructions .ROUTE .MEDSUPPLY Qty: 1 0RF Rx Instructions: As directed (DME) CPAP mask, tubing, supplies See Rx Instructions .ROUTE .MEDSUPPLY Qty: 1 1RF Rx Instructions: As directed (DME) Blood Glucose Test Strip See Rx Instructions .MEDSUPPLY Qty: 200 12RF Rx Instructions: Use as directed with glucometer to check blood sugar (DME) pen needle, diabetic [Pen Needle] 30 gauge x 5/16 needle See Rx Instructions .MEDSUPPLY Qty: 100 12RF Rx Instructions: Use as directed for insulin administration albuterol sulfate 90 mcg/actuation HFA aerosol inhaler 2 puff inhalation Q6H PRN (Reason: shortness of breath or wheezing) Qty: 8.5 3RF aspirin 81 mg tablet,chewable 81 mg PO QAM Qty: 60 0RF (DME) Dexcom G7 [employer] Car Repair Supervisor Misc See Rx Instructions .Route Qty: 1 3RF Rx Instructions: As directed Lipitor 40 mg tablet 40 mg PO BEDTIME Qty: 90 1RF nystatin 100,000 unit/gram ointment 1 applic topical BID 14 Days Qty: 30 3RF famotidine 20 mg tablet 20 mg PO QDAY Qty: 90 1RF glipizide 10 mg tablet 10 mg PO DAILY Qty: 90 1RF meloxicam 15 mg tablet 15 mg PO QAM Qty: 90 1RF insulin glargine [Lantus Solostar U-100 Insulin] 100 unit/mL (3 mL) insulin pen 25 unit SUBCUT QAM Qty: 15 2RF metformin 500 mg tablet 1,000 mg PO BID Qty: 360 1RF gabapentin 600 mg tablet 600 mg PO TID Qty: 270 1RF duloxetine [Cymbalta] 30 mg capsule,delayed release(DR/EC) 30 mg PO BID Qty: 180 1RF promethazine 25 mg tablet 25 mg PO TID PRN (Reason: Nausea And Vomiting) Qty: 90 0RF tiotropium bromide [Spiriva with HandiHaler] 18 mcg capsule, w/inhalation device 1 cap inhalation DAILY Qty: 60 6RF Rx Instructions: puncture 1 cap using device; one dose = 2 inhalations benzonatate 100 mg capsule 100 mg PO BID PRN (Reason: Cough) Qty: 60 0RF fluticasone propionate [Flonase Allergy Relief] 50 mcg/actuation spray,suspension 2 spray intranasal DAILY Qty: 16 0RF Rx Instructions: administer into each nostril quetiapine [Seroquel XR] 150 mg tablet extended release 24 hr 150 mg PO BEDTIME Qty: 90 0RF (DME) Dexcom G7 Sensor Device See Rx Instructions .Route Qty: 3 3RF Rx Instructions: As directed morphine [MS Contin] 30 mg tablet extended release 30 mg PO .qdaily 30 Days Qty: 30 0RF hydrocodone-acetaminophen 7.5-325 mg tablet 1 tab PO BID PRN (Reason: pain) 30 Days Qty: 60 0RF nicotine 14 mg/24 hr patch 24 hour 1 patch transdermal DAILY Qty: 28 0RF insulin lispro [Admelog SoloStar U-100 Insulin] 100 unit/mL insulin pen See Rx Instructions .ROUTE .COMPLEX Rx Instructions: Please check blood sugar 3 times a day with meals, inject 2 units subcu for blood sugars between 101 and 200, 4 units for blood sugar between 201 and 300, 6 units for blood sugar above 300, Discharge Orders: Discharge ED (Routine); Ordered 10/27/24 Ordered By: Sylwia Ponce Referrals: Robbie Burrell MD [Primary Care Provider, Family Practice] Patient Instructions: Altered Mental Status (ED), Opioid Safety, Pain Management, Patient Portal & Annette Instructions Activity Restrictions/Additional Instructions: - Do not take any more of your pain medication tonight. This has caused you did not breathe effectively. - Tomorrow only take half your dose of pain medication (break it in half) due to causing increased sleepiness and narcotic breathing suppression. - Your potassium is too high. Stay away from potassium rich foods such as bananas, beans, fries, tater tots, cottage cheese, milk, and repeat on Tuesday. - Return to ED with increasing altered mentation, or further issues. Print Language: Swedish Coding Level of Care Code ED Physician Obstetrician for [facility]
[2024-10-28 00:10] LABS: PCP Screen Urine Negative (Negative)
[2024-10-28 00:27] LABS: Add Urine Microscopic? YES; Glucose Urine UA Negative (Normal); Nitrate Urine Negative (Negative)
[2024-10-28 00:28] LABS: Specific Gravity, Urine 1.036 (1.005-1.030); UA Slide Review UA Slide Review Perf
[2024-10-28 00:37] VITALS: BP 98/49; PULSE 87; O2SAT 91
== END 2024-10-28 01:04 | disposition home or self-care (01) ==
PROVIDERS: Emergency Medicine; Emergency Provider Physician Assistant; PCP Family Medicine
DX: E87.5 Hyperkalemia (principal); F11.982 Opioid use, unspecified with opioid-induced sleep disorder; Z79.82 Long term (current) use of aspirin; Z79.4 Long term (current) use of insulin; Z79.84 Long term (current) use of oral hypoglycemic drugs; F17.210 Nicotine dependence, cigarettes, uncomplicated; E78.5 Hyperlipidemia, unspecified; E11.9 Type 2 diabetes mellitus without complications; I10 Essential (primary) hypertension
CPT/HCPCS: 36415; 36416; 71045; 80053; 80306; 80307; 81001; 82803; 82962; 85025; 99284; J9999

== ENCOUNTER → 2024-11-02 15:16 | Outpatient (BNVA) | payer MEDICAID, SELFPAY | PROVIDERS: PCP Family Medicine; Visit Provider Family Medicine | DX: S69.91XA Unspecified injury of right wrist, hand and finger(s), initial encounter (principal); Z68.42 Body mass index [BMI] 45.0-49.9, adult; E11.69 Type 2 diabetes mellitus with other specified complication; X58.XXXA Exposure to other specified factors, initial encounter | CPT/HCPCS: 73110; 73130; 80053; 83036; 84439; 84443 ==

== ENCOUNTER 2024-11-15 18:57 | Emergency (ER) | payer MEDICAID, SELFPAY ==
[2024-11-15 19:03] VITALS: BP 177/111; PULSE 110; RESP 18; TEMP 36.8; O2SAT 95; BMI 47.4
[2024-11-15 20:01] LABS: Hematocrit 42.3 % (36-47); Hemoglobin 13.40 g/dL (11.27-16.99); Mean Corpuscular HGB Conc 31.7 g/dL (30-55); Mean Corpuscular Hemoglobin 28.4 pg (27-33); Mean Corpuscular Volume 89.6 fl (85-98); Nucleated Red Blood Cells % 0 %; Platelet Count 229 10^3/cmm (157-399); Red Blood Count 4.72 10^6/uL (3.85-5.65); White Blood Count 11.49 10^3/uL (3.29-11.43)
[2024-11-15 20:19] VITALS: BP 133/95; PULSE 99; RESP 18; O2SAT 95
[2024-11-15 20:19] LABS: Alanine Aminotransferase 31 U/L (0-33); Albumin Level 4.2 g/dL (3.5-5.2); Alkaline Phosphatase 73 U/L (35-105); Anion Gap 17.8 (5-19); Aspartate Amino Transferase 64 U/L (0-32); Blood Urea Nitrogen 12 mg/dL (8-23); Calcium 9.8 mg/dL (8.5-10.5); Carbon Dioxide 24 mmol/L (22-29); Chloride 103 mmol/L (98-107); Creatinine Clr Calc Pharmacy 196.7625; Globulin 3.8 g/dL (1.3-4.6); Glucose 105 mg/dL (65-115); Osmolality Calculated 292 mOsm/kg (285-295); Potassium 3.8 mmol/L (3.5-5.1); Sodium 141 mmol/L (136-145); Total Protein 8.0 g/dL (6.6-8.7)
--- NOTE | 2024-11-15 20:25 | XRR_ITS ---
PROCEDURE INFORMATION: Exam: XR Chest Exam date and time: 11/15/2024 8:31 PM Age: 59 years old Clinical indication: Fever; Additional info: Report of fever TECHNIQUE: Imaging protocol: Radiologic exam of the chest. Views: 1 view. COMPARISON: CR (CHEST, ) 10/27/2024 11:10 PM FINDINGS: Lungs: No focal consolidation or other acute appearing pulmonary opacity. Pleural spaces: No pleural effusion or pneumothorax noted. Heart/Mediastinum: There is cardiomegaly. Bones/joints: No acute osseous abnormality. XR/XR chest 1V portable [id number] IMPRESSION: No acute findings.
--- NOTE | 2024-11-15 20:25 | CTR_ITS ---
PROCEDURE INFORMATION: Exam: CT Abdomen And Pelvis With Contrast Exam date and time: 11/15/2024 9:20 PM Age: 59 years old Clinical indication: Abdominal pain; Flank; Left; Additional info: Pain, nvd TECHNIQUE: Imaging protocol: Computed tomography of the abdomen and pelvis with contrast. Radiation optimization: All CT scans at this facility use at least one of these dose optimization techniques: automated exposure control; mA and/or kV adjustment per patient size (includes targeted exams where dose is matched to clinical indication); or iterative reconstruction. Contrast material: OMNIPAQUE 350; Contrast volume: 100 ml; Contrast route: INTRAVENOUS (IV); COMPARISON: CT pelvis wo con [id number] 04/22/2024 3:29 PM RADIATION DOSE METRICS: Total DLP (mGy-cm): 1519.66 FINDINGS: Lungs: Lung bases are unremarkable. Liver: The liver is enlarged measuring 23 cm in length. Gallbladder and biliary ducts: Post cholecystectomy. Pancreas: The pancreas is atrophic. Spleen: The spleen is unremarkable. Adrenal glands: Stable 18.6 mm right adrenal nodule and 13.4 mm left adrenal nodule. Kidneys and ureters: No hydronephrosis, hydroureter or nephrolithiasis. Stable 5.5 cm left simple renal cyst is present, as well as other subcentimeter hypodensities which are too small to characterize. Stomach and bowel: The stomach is not distended. Small and large bowel are normal in caliber without evidence of obstruction. Moderate amount of feces in the colon. Appendix: No evidence of appendicitis. Intraperitoneal space: No free intraperitoneal air. No significant fluid collection. Vasculature: There is no aortic aneurysm. Lymph nodes: No pathologically enlarged lymph nodes (by short axis size criteria). Urinary bladder: Bladder is distended with no focal wall thickening. Reproductive: There has been a hysterectomy. No adnexal cysts or masses are identified. Bones/joints: No acute osseous abnormality. There is degenerative disease of the spine. Soft tissues: There is a small fat containing umbilical hernia. CT/CT abdomen pelvis w con* [id number] IMPRESSION: 1. Stable 5.5 cm left simple renal cyst. 2. Hepatomegaly. 3. Stable bilateral adrenal nodules measuring 18.6 mm on the right and 13.4 mm on the left. COMMENTS: Consistent with the [employer]'s Incidental Findings Committee white paper (J Am Mary Radiol 2018): Any incidental renal lesion less than 1 cm or classified as too small to characterize, or any incidental cystic renal lesion characterized as simple-appearing, is likely benign. No follow-up imaging is recommended for these lesions per consensus recommendations based on imaging criteria.
[2024-11-15 20:49] LABS: Lipase 20 U/L (13-60)
[2024-11-15 20:57] VITALS: BP 133/95; PULSE 107; RESP 18; O2SAT 92
[2024-11-15] MEDS: HYDROmorphone 0.5 MG/0.5 ML INJ 1 MG IVP ×3 (20:58→23:14)
[2024-11-15] MEDS: ondansetron 2 mg/ML SDV 2 mL 8 MG IVP (20:58)
[2024-11-15] MEDS: iohexol 350 mg/mL 500 mL Btl (per mL) IV (21:25)
[2024-11-15] MEDS: LORazepam 1 MG/0.5 ML injection IVP (21:51)
[2024-11-15] MEDS: promethazine 25 mg/mL SDV 1 mL 50 MG IM (23:14)
[2024-11-15 23:29] VITALS: BP 119/82; PULSE 104; RESP 18; O2SAT 93
[2024-11-15 23:42] LABS: Glucose Urine UA Negative (Normal); Nitrate Urine Negative (Negative)
[2024-11-15 23:49] LABS: PCP Screen Urine Negative (Negative)
[2024-11-16 00:07] LABS: Add Urine Microscopic? YES; Specific Gravity, Urine 1.081 (1.005-1.030)
[2024-11-16 00:25] VITALS: BP 96/69; PULSE 86; O2SAT 93
[2024-11-16 01:56] VITALS: BP 119/81; PULSE 92; RESP 18; O2SAT 98
[2024-11-16 02:25] VITALS: BP 125/86; PULSE 94; RESP 18; O2SAT 93
--- NOTE | 2024-11-16 02:48 | ED_ITS ---
HPI - Nausea/Vomiting/Diarrhea 2 General: Chief complaint: Nausea/Vomiting/Diarrhea Stated complaint: dizziness - diarrhea Time Seen by Provider: 11/15/24 20:13 History of Present Illness: 59 yo F with Hx of type 2 DM, chronic hy percapnic respiratory failure, HTN, dyslipidemia, RA, GERD, chronic lower back pain, pulmonary nodules, prior stroke, chronic cystitis, constipation, hematochezia, insomnia, CAP, bipolar disorder, osteoarthritis, and neuropathic pain presents with N/V/D and hematochezia. Per EMS, she wears O2 as needed; BG has been in the 300s this week but was 122 for EMS. She has been unable to keep anything down, including medications. She reports severe abdominal pain (11/23) and fever to 101. Recent ED visits: 10/28 for hyperkalemia; August for left hip OA; May for chest wall pain. ROS notable for N/V/D, abdominal pain, hematochezia, fever. No additional ROS details provided. Medical History: - Type 2 diabetes mellitus - Chronic hypercapnic respiratory failur e - Dyslipidemia - Neuropathic pain - Osteoarthritis - GERD - Chronic lower back pain - Pulmonary nodules - Rheumatoid arthritis - History of stroke - Chronic cystitis - Constipation - Hematochezia - Insomnia - Community-acquired pneumonia - Bipolar disorder - Hypertension Related Data Home Medications ?Medication ?Instructions ?Recorded ?Confirmed insulin lispro 100 unit/mL See Rx Instructions .Route .COMPLEX 04/22/24 11/02/24 subcutaneous pen (Admelog SoloStar U-100 Insulin lispro) Previous Rx's ?Medication ?Instructions ?Recorded manual wheelchair #1 ea 10/03/19 TENS unit and equipment #1 ea 10/01/22 CPAP 6-16cm setting #1 ea 11/23/22 CPAP mask, tubing, supplies #1 ea 11/23/22 Left wrist brace #1 ea 12/06/22 lancets #100 ea 01/24/23 lancets #200 ea 02/21/23 motorized electric scooter #1 ea 02/21/23 blood sugar diagnostic (Blood #200 ea 03/04/23 Glucose Test strips) blood sugar diagnostic (Blood #200 ea 03/16/23 Glucose Test strips) lancets #200 ea 03/16/23 naloxone 4 mg/actuation nasal 4 mg intranasal Q2M PRN opioid 03/16/23 spray (Narcan) overdose #2 ea pen needle, diabetic 30 gauge x #100 ea 03/17/2306/29 (Pen Needle) dexcom G7 transmitter #1 ea 07/29/23 albuterol sulfate 90 mcg/actuation 2 puff inhalation Q 6H PRN 08/17/23 aerosol inhaler shortness of breath or wheez ing #8.5 grams aspirin 81 mg chewable tablet 81 mg PO QAM #60 tabs escitalopram oxalate 20 mg tablet 20 mg PO QAM #90 tab s 11/22/23 (Lexapro) loperamide 2 mg tablet (Imodium 2 mg PO QID PRN loose stool #30 01/18/24 A-D) tabs blood-glucose,school community relations coordinator,cont #1 ea 03/06/24 (Dexcom G7 Drug Safety Specialist) atorvastatin 40 mg tablet (Lipitor) 40 mg PO BEDTIME # 90 tabs 04/05/24 nystatin 100,000 unit/gram topical 1 applic topical BI D 2 weeks #30 05/01/24 ointment grams cetirizine 10 mg tablet (Zyrtec) 10 mg PO DAILY PRN al lergy 06/21/24 symptoms #90 tabs portable oxygen concentrator #1 ea 06/21/24 famotidine 20 mg tablet 20 mg PO QDAY #90 tabs 06/26 glipizide 10 mg tablet 10 mg PO DAILY #90 tabs 06/14 06/08 meloxicam 15 mg tablet 15 mg PO QAM #90 tabs insulin glargine 100 unit/mL (3 25 unit (0.25 mL) SUBC UT QAM #15 mL 07/17/24 mL) subcutaneous pen (Lantus Solostar U-100 Insulin) gabapentin 600 mg tablet 600 mg PO TID #270 tabs 07/15 08/08 metformin 500 mg tablet 1,000 mg (2 x 500 mg) PO BID #360 07/30/24 tabs baclofen 10 mg tablet 10 mg PO BID #60 tabs duloxetine 30 mg capsule,delayed 30 mg PO BID #180 cap s 08/28/24 release (Cymbalta) tiotropium bromide 18 mcg capsule 1 cap inhalation GIANCARLO LY #60 09/11/24 with inhalation device (Spiriva inhalations with HandiHaler) benzonatate 100 mg capsule 100 mg PO BID PRN Cough #60 caps 09/17/24 fluticasone propionate 50 2 spray intranasal DAILY #16 grams 09/17/24 mcg/actuation nasal spray,suspension (Flonase Allergy Relief) blood-glucose sensor (Dexcom G7 #3 ea 10/16/24 Sensor device) hydrocodone 7.5 mg-acetaminophen 1 tab PO BID PRN pain 30 days #60 10/19/24 325 mg tablet tabs morphine 30 mg tablet,extended 30 mg PO .qdaily pain 3 0 days #30 10/19/24 release (MS Contin) tabs nicotine 14 mg/24 hr daily 1 patch transdermal DAILY # 28 ea 10/26/24 transdermal patch promethazine 25 mg tablet 25 mg PO TID PRN Nausea And 10/29/24 Vomiting #90 tabs quetiapine 150 mg tablet,extended 150 mg PO BEDTIME #9 0 tabs 10/29/24 release 24 hr (Seroquel XR) tirzepatide (weight loss) 7.5 7.5 mg (0.5 mL) SUBCUT . qweekly #2 11/02/24 mg/0.5 mL subcutaneous pen injector mL wheelchair #1 ea 11/02/24 Allergies Allergy/AdvReac Type Severity Reaction Status Date / Time ketorolac (From Toradol) Allergy Severe ALGY-Anaphy Verified 11/02/24 14:26 laxis Penicillins Allergy Severe ALGY-Anaphy Verified 11/02/24 14:26 laxis Sulfa (Sulfonamide Allergy Severe ALGY-Anaphy Verified 11/02/24 14:26 Antibiotics) laxis tetracycline Allergy Severe ALGY-Anaphy Verified 11/02/24 14:26 laxis lidocaine Allergy ALGY-Hives Verified 11/02/24 14:26 tramadol (From Ultram) Allergy ALGY-Difficulty Verified 11/02/24 14:26 Breathing PFSH ED 2 PFSH: Medical History (Updated 11/16/24 @ 02:20 by Benson Claros MD) Allergic conjunctivitis and rhinitis Adrenal mass Type 2 diabetes mellitus Hospital discharge follow-up Chronic hypercapnic respiratory failure Chronic respiratory failure with hypoxia Dyslipidemia Neuropathic pain, leg, bilateral Osteoarthritis IVELISSE (obstructive sleep apnea) GERD without esophagitis Chronic low back pain Pulmonary nodules Rheumatoid arthritis History of stroke Chronic cystitis delivery delivered Constipation Hematochezia Insomnia Community acquired pneumonia History of bipolar disorder History of hypertension Surgical History History of incisional hernia repair History of hysterectomy History of cholecystectomy History of tonsillectomy History of knee surgery Family History Mother , at age 78 COVID-19 Brother , at age 58 Cancer Colon Father , at age 45 Car occupant injured in traffic accident Cancer Colon Family/Other Cancer Paternal-lung Other Chronic kidney disease (CKD) Dementia Diabetes Hyperlipidemia Hypertension Lung disease Stroke Denies family history of CAD (coronary artery disease) Clotting disorder Psychiatric illness Anesthesia complication Bleeding disorder Social History Smoking and tobacco/nicotine status: current every day tobacco/nicotine user cigarettes Packs smoked per day: 0.5 Years cigarettes smoked: 30 [ Other cigarette details: Currently smoking 6-7/day] Quit status (tobacco/nicotine): considering quitting Alcohol intake: never Substance/Drug Use: former Adopted: No Lives independently: Yes Household members: spouse Marital status: Number of grandchildren: 2 Current occupational status: disabled Special sherine needs: No Agree to transfusion: Yes Female Reproductive History: Spontaneous abortions: No Physical Exam 2 Narrative: EXAM NARRATIVE: Tearful, in moderate distress due to pain and sensation of nausea. Const: COMMON NORMALS: patient oriented x3 and alert HENMT: COMMON NORMALS: normocephalic and atraumatic HEAD & SCALP: n ormocephalic and atraumatic Eye: COMMON NORMALS: Equal, round and reactive pupils present, EOMs intact bilaterally and no scleral icterus PUPIL: Yes Equal, round and reactive pupils present Resp: COMMON NORMALS: normal respiratory effort and No retractions Cardio: COMMON NORMALS: regular rate, regular rhythm and No murmurs present (Cardio) RATE: regular rate RHYTHM: regular rhythm GI: COMMON NORMALS: Normal to inspection, nondistended, normoactive bowel sounds present, Soft to palpation and non-tender PALPATION: Yes Soft to palpation OTHER: Pain not elicited by palpation in any quadrant. Neuro: COMMON NORMALS: patient oriented x3 SENSORIUM/ORIENTATION: Yes alert Skin: COMMON NORMALS: no rashes or lesions noted GENERAL SKIN EXAM: no rashes or lesions noted Course 2 Vital Signs: Vital signs: Vital Signs Temperature 98.3 F 11/15/24 19:03 Pulse Rate 94 11/16/24 02:25 Respiratory Rate 18 11/16/24 02:25 Blood Pressure 125/86 11/16/24 02:25 Pulse Oximetry 93 11/16/24 02:25 Oxygen Delivery Me thod Nasal Cannula 11/16/24 00:25 Oxygen Flow Rate 2 11/16/24 00:25 MDM - Nausea/Vomiting/Diarrhea Medical Decision Making 59 yo F with DM2 and chronic respiratory disease presents with N/V/D and hematochezia, unable to keep meds down; reports fever 101 and severe abdominal pain. Vitals notable for reported fever and mild tachycardia. PE shows tearful, anxious, flushed; lungs clear; heart regular; abdomen without increased tenderness on palpation. Provider suspects possible opioid withdrawal given inability to keep morphine/hydrocodone down. GI source for N/V/D with hematochezia under evaluation Patient remained anxious and tearful despite multiple doses of Dilaudid. Finally after third milligram of Dilaudid was administered, she was able to relax and laugh and make jokes and drink water without nausea or vomiting. She typically takes hydrocodone and morphine but has not been able to for the last several days due to her nausea and vomiting and I believe this put her into withdrawal. CT scan and lab work showed nothing acute. She is not able to eat and drink. She will be discharged in stable condition as she has Phenergan and opioids at home for her symptomatic care. Lab Data 11/15/24 19:50 11/15/24 19:50 Radiology Impressions Abdomen/Pelvis CT 11/15/24 20:25 IMPRESSION: 1. Stable 5.5 cm left simple renal cyst. 2. Hepatomegaly. 3. Stable bilateral adrenal nodules measuring 18.6 mm on the right and 13.4 mm on the left. COMMENTS: Consistent with the [employer]'s Incidental Findings Committee white paper (J Am Mary Radiol 2018): Any incidental renal lesion less than 1 cm or classified as too small to characterize, or any incidental cystic renal lesion characterized as simple-appearing, is likely benign. No follow-up imaging is recommended for these lesions per consensus recommendations based on imaging criteria. Chest X-Ray 11/15/24 20:25 IMPRESSION: No acute findings. Laboratory Results WBC 11.49 10^3/uL (3.29-11.43) H 11/15/24 19:50 RBC 4.72 10^6/uL (3.85-5.65) 11/15/24 19:50 Hgb 13.40 g/dL (11.27-16.99) 11/15/24 19:50 Hct 42.3 % (36-47) 11/15/24 19:50 MCV 89.6 fl (85-98) 11/15/24 19:50 MCH 28.4 pg (27-33) 11/15/24 19:50 MCHC 31.7 g/dL (30-55) 11/15/24 19:50 RDW 13.2 % (12.1-15.1) 11/15/24 19:50 Plt Count 229 10^3/cmm (157-399) 11/15/24 19:50 MPV 9.9 fL (7.4-10.4) 11/15/24 19:50 Neut % (Auto) 58.7 % 11/15/24 19:50 Lymph % (Auto) 31.2 % 11/15/24 19:50 [place] % (Auto) 8.0 % 11/15/24 19:50 Eos % (Auto) 1.4 % 11/15/24 19:50 Baso % (Auto) 0.4 % 11/15/24 19:50 Neut # (Auto) 6.75 10^3/uL (1.8-7.7) 11/15/24 19:50 Lymph # (Auto) 3.6 10^3/uL (0.8-4.8) 11/15/24 19:50 [place] # (Auto) 0.9 10^3/uL (0.2-0.9) 11/15/24 19:50 Eos # (Auto) 0.2 10^3/uL (0.0-0.8) 11/15/24 19:50 Baso # (Auto) 0.1 10^3/uL (0.0-0.1) 11/15/24 19:50 Nucleated RBC % (auto) 0 % 11/15/24 19:50 Nucleated RBCs # 0.0 /100WBC 11/15/24 19:50 Sodium 141 mmol/L (136-145) 11/15/24 19:50 Potassium 3.8 mmol/L (3.5-5.1) 11/15/24 19:50 Chloride 103 mmol/L (98-107) 11/15/24 19:50 Carbon Dioxide 24 mmol/L (22-29) 11/15/24 19:50 Anion Gap 17.8 (5-19) 11/15/24 19:50 BUN 12 mg/dL (8-23) 11/15/24 19:50 Creatinine 0.5 mg/dL (0.5-0.9) 11/15/24 19:50 GFR Calculation 125.9 mL/min (90-130) 11/15/24 19:50 Glucose 105 mg/dL (65-115) 11/15/24 19:50 Calculated Osmolality 292 mOsm/kg (285-295) 11/15/24 19:50 Calcium 9.8 mg/dL (8.5-10.5) 11/15/24 19:50 Total Bilirubin 0.4 mg/dL (0.15-1.2) 11/15/24 19:50 AST 64 U/L (0-32) H 11/15/24 19:50 ALT 31 U/L (0-33) 11/15/24 19:50 Alkaline Phosphatase 73 U/L (35-105) 11/15/24 19:50 Total Protein 8.0 g/dL (6.6-8.7) 11/15/24 19:50 Albumin 4.2 g/dL (3.5-5.2) 11/15/24 19:50 Globulin 3.8 g/dL (1.3-4.6) 11/15/24 19:50 Lipase 20 U/L (13-60) 11/15/24 19:50 Urine Color Yellow (Yellow) 11/15/24 23:21 Urine Appearance Clear (CLEAR) 11/15/24 23:21 Urine pH 5.0 (5-7) 11/15/24 23:21 Ur Specific [place] 1.081 (1.005-1.030) H 11/15/24 23:21 Urine Protein 1+ (Negative) A 11/15/24 23:21 Urine Glucose (UA) Negative (Normal) 11/15/24 23:21 Urine Ketones Negative (Negative) 11/15/24 23:21 Urine Blood Negative (Negative) 11/15/24 23:21 Urine Nitrate Negative (Negative) 11/15/24 23:21 Urine Bilirubin Negative (Negative) 11/15/24 23:21 Urine Urobilinogen 1.0 mg/dL (Negative) 11/15/24 23:21 Ur Leukocyte Esterase Negative (Negative) 11/15/24 23:21 Urine RBC 0-4 /hpf (0-2) H 11/15/24 23:21 Urine WBC None /hpf (0-5) 11/15/24 23:21 Ur Squamous Epith Cells 5-10 /hpf (0-5) H 11/15/24 23:21 Amorphous Sediment Not Reportable 11/15/24 23:21 Urine Bacteria None /hpf (NONE) 11/15/24 23:21 Urine Opiates Screen Positive ng/mL (Negative) H 11/15/24 23:21 Ur Barbiturates Screen Negative ng/mL (Negative) 11/15/24 23:21 Ur Phencyclidine Scrn Negative ng/mL (Negative) 11/15/24 23:21 Ur Amphetamines Screen Negative ng/mL (Negative) 11/15/24 23:21 U Benzodiazepines Scrn Negative ng/mL (Negative) 11/15/24 23:21 Urine Cocaine Screen Negative ng/mL (Negative) 11/15/24 23:21 U Marijuana (THC) Screen Negative ng/mL (Negative) 11/15/24 23:21 All radiology interpretation(s) finalized by discharge Discharge Plan Discharge Patient Disposition: Home Clinical Impression: Opioid-induced hyperalgesia Condition: Stable Prescriptions: No Action (DME) manual wheelchair See Rx Instructions .Route .MEDSUPPLY Qty: 1 0RF Rx Instructions: As directed (DME) TENS unit and equipment See Rx Instructions .Route .MEDSUPPLY Qty: 1 0RF Rx Instructions: As directed tirzepatide (weight loss) 7.5 mg/0.5 mL pen injector 7.5 mg SUBCUT .qweekly Qty: 2 2RF (DME) wheelchair See Rx Instructions .Route .MEDSUPPLY Qty: 1 0RF Rx Instructions: As directed (DME) Left wrist brace See Rx Instructions .Route .MEDSUPPLY Qty: 1 0RF Rx Instructions: As directed (DME) lancets Misc See Rx Instructions .Route Qty: 100 0RF Rx Instructions: As directed (DME) lancets Misc See Rx Instructions .MEDSUPPLY Qty: 200 12RF Rx Instructions: Use as directed to prick skin for blood sugar checks (DME) motorized electric scooter See Rx Instructions .Route .MEDSUPPLY Qty: 1 0RF Rx Instructions: As directed (DME) Blood Glucose Test Strip See Rx Instructions .MEDSUPPLY Qty: 200 12RF Rx Instructions: Use as directed with glucometer to check blood sugar (DME) lancets Misc See Rx Instructions .MEDSUPPLY Qty: 200 12RF Rx Instructions: Use as directed to prick skin for blood sugar checks naloxone [Narcan] 4 mg/actuation spray,non-aerosol 4 mg intranasal Q2M PRN (Reason: opioid overdose) Qty: 2 0RF (DME) dexcom G7 transmitter See Rx Instructions .Route .MEDSUPPLY Qty: 1 2RF Rx Instructions: As directed escitalopram oxalate [Lexapro] 20 mg tablet 20 mg PO QAM Qty: 90 1RF loperamide [Imodium A-D] 2 mg tablet 2 mg PO QID PRN (Reason: loose stool) Qty: 30 0RF cetirizine [Zyrtec] 10 mg tablet 10 mg PO DAILY PRN (Reason: allergy symptoms) Qty: 90 1RF (DME) portable oxygen concentrator See Rx Instructions .Route .MEDSUPPLY Qty: 1 0RF Rx Instructions: As directed baclofen 10 mg tablet 10 mg PO BID Qty: 60 3RF (DME) CPAP 6-16cm setting See Rx Instructions .ROUTE .MEDSUPPLY Qty: 1 0RF Rx Instructions: As directed (DME) CPAP mask, tubing, supplies See Rx Instructions .ROUTE .MEDSUPPLY Qty: 1 1RF Rx Instructions: As directed (DME) Blood Glucose Test Strip See Rx Instructions .MEDSUPPLY Qty: 200 12RF Rx Instructions: Use as directed with glucometer to check blood sugar (DME) pen needle, diabetic [Pen Needle] 30 gauge x 5/16 needle See Rx Instructions .MEDSUPPLY Qty: 100 12RF Rx Instructions: Use as directed for insulin administration albuterol sulfate 90 mcg/actuation HFA aerosol inhaler 2 puff inhalation Q6H PRN (Reason: shortness of breath or wheezing) Qty: 8.5 3RF aspirin 81 mg tablet,chewable 81 mg PO QAM Qty: 60 0RF (DME) Dexcom G7 Drug Safety Specialist Misc See Rx Instructions .Route Qty: 1 3RF Rx Instructions: As directed Lipitor 40 mg tablet 40 mg PO BEDTIME Qty: 90 1RF nystatin 100,000 unit/gram ointment 1 applic topical BID 14 Days Qty: 30 3RF famotidine 20 mg tablet 20 mg PO QDAY Qty: 90 1RF glipizide 10 mg tablet 10 mg PO DAILY Qty: 90 1RF meloxicam 15 mg tablet 15 mg PO QAM Qty: 90 1RF insulin glargine [Lantus Solostar U-100 Insulin] 100 unit/mL (3 mL) insulin pen 25 unit SUBCUT QAM Qty: 15 2RF metformin 500 mg tablet 1,000 mg PO BID Qty: 360 1RF gabapentin 600 mg tablet 600 mg PO TID Qty: 270 1RF duloxetine [Cymbalta] 30 mg capsule,delayed release(DR/EC) 30 mg PO BID Qty: 180 1RF tiotropium bromide [Spiriva with HandiHaler] 18 mcg capsule, w/inhalation device 1 cap inhalation DAILY Qty: 60 6RF Rx Instructions: puncture 1 cap using device; one dose = 2 inhalations benzonatate 100 mg capsule 100 mg PO BID PRN (Reason: Cough) Qty: 60 0RF fluticasone propionate [Flonase Allergy Relief] 50 mcg/actuation spray,suspension 2 spray intranasal DAILY Qty: 16 0RF Rx Instructions: administer into each nostril (DME) Dexcom G7 Sensor Device See Rx Instructions .Route Qty: 3 3RF Rx Instructions: As directed morphine [MS Contin] 30 mg tablet extended release 30 mg PO .qdaily 30 Days Qty: 30 0RF hydrocodone-acetaminophen 7.5-325 mg tablet 1 tab PO BID PRN (Reason: pain) 30 Days Qty: 60 0RF nicotine 14 mg/24 hr patch 24 hour 1 patch transdermal DAILY Qty: 28 0RF quetiapine [Seroquel XR] 150 mg tablet extended release 24 hr 150 mg PO BEDTIME Qty: 90 0RF promethazine 25 mg tablet 25 mg PO TID PRN (Reason: Nausea And Vomiting) Qty: 90 0RF insulin lispro [Admelog SoloStar U-100 Insulin] 100 unit/mL insulin pen See Rx Instructions .ROUTE .COMPLEX Rx Instructions: Please check blood sugar 3 times a day with meals, inject 2 units subcu for blood sugars between 101 and 200, 4 units for blood sugar between 201 and 300, 6 units for blood sugar above 300, Discharge Orders: Discharge ED (Routine); Ordered 11/16/24 Ordered By: eBnson Claros Referrals: Robbie Burrell MD [Primary Care Provider, [facility]] Discharge Diet: Advance as tolerated Discharge Activity: Increase activity as tolerated Patient Instructions: Opioid Safety, Pain Management, Patient Portal & Annette Instructions Activity Restrictions/Additional Instructions: Your blood work and CT scan showed no evidence of medical problems. Please continue your home medications as prescribed and follow-up with your primary care doctor Print Language: Polish Coding Level of Care Code ED Hot Box Checker for Abdirahman Hill
== END 2024-11-16 02:39 | disposition home or self-care (01) ==
PROVIDERS: Emergency Medicine; Emergency Provider Student in an Organized Health Care Education/Training Program; PCP Family Medicine
DX: R20.8 Other disturbances of skin sensation (principal); Z79.82 Long term (current) use of aspirin; Z79.84 Long term (current) use of oral hypoglycemic drugs; Z79.4 Long term (current) use of insulin; F17.210 Nicotine dependence, cigarettes, uncomplicated; E78.5 Hyperlipidemia, unspecified; E11.9 Type 2 diabetes mellitus without complications; I10 Essential (primary) hypertension
CPT/HCPCS: 36415; 71045; 74177; 80053; 80306; 81001; 83690; 85025; 96361; 96372; 96374; 96375; 96376; 99285; J1171; J2060; J2405; J2550; J7030

== ENCOUNTER → 2024-12-20 14:56 | Outpatient (BNVA) | payer MEDICAID, SELFPAY | PROVIDERS: PCP Family Medicine; Visit Provider Family Medicine | DX: D18.01 Hemangioma of skin and subcutaneous tissue (principal) | CPT/HCPCS: 88304 ==

== ENCOUNTER 2024-12-28 11:36 | Emergency (ER) | payer MEDICAID, SELFPAY ==
[2024-12-28 11:37] VITALS: BP 184/124; PULSE 128; RESP 20; TEMP 36.8; O2SAT 94; BMI 33.5
--- NOTE | 2024-12-28 11:37 | XR_ITS ---
WS: [email or web address] Exam: XR chest 1V portable [id number] Date/Time of Exam: 12/28/2024 11:43 AM Reason For Exam: chest pain Comparison 11/15/2024. The lungs are fully inflated and clear. Cardiomediastinal silhouette is unremarkable for technique. No pleural effusions. Normal bony structures. XR/XR chest 1V portable [id number] IMPRESSION: 1. No acute cardiopulmonary finding.
--- NOTE | 2024-12-28 11:43 | XR_ITS ---
WS: [email or web address] Exam: XR hip LT 2-3V wo/w pel* [id number] Date/Time of Exam: 12/28/2024 11:43 AM Reason For Exam: pain Comparison 08/24/2024. No obvious fracture. Moderately advanced osteoarthritis noted. The visualized pelvis is intact. Moderately advanced DJD of the RIGHT hip also noted. XR/XR hip LT 2-3V wo/w pel* [id number] IMPRESSION: 1. No obvious fracture. Moderately advanced DJD.
[2024-12-28 11:50] VITALS: RESP 18
[2024-12-28] MEDS: morphine 4 mg/mL SDV 1 mL IVP ×2 (11:50→14:54)
[2024-12-28 11:54] LABS: Hematocrit 44.4 % (36-47); Hemoglobin 13.90 g/dL (11.27-16.99); Mean Corpuscular HGB Conc 31.3 g/dL (30-55); Mean Corpuscular Hemoglobin 28.5 pg (27-33); Mean Corpuscular Volume 91.2 fl (85-98); Nucleated Red Blood Cells % 0 %; Platelet Count 266 10^3/cmm (157-399); Red Blood Count 4.87 10^6/uL (3.85-5.65); White Blood Count 13.73 10^3/uL (3.29-11.43)
--- NOTE | 2024-12-28 12:08 | CT_ITS ---
WS: [id number] CT LEFT HIP WITH CONTRAST HISTORY: Recent injection pain leukocytosis Technique: All CT scans at [facility] use at least one of these dose optimization techniques: automated exposure control; mA and/or kV adjustment per patient size (includes targeted exams where dose is matched to clinical indication); or iterative reconstruction. DLP: 950.19 mGy.cm COMPARISON: 11/15/2024 CT. LEFT hip radiograph 12/28/2024 Moderate to severe narrowing of the hip joint. Mild osteophytic ridging around the femoral head-neck junction. There is small cortical breaks along the acetabulum and femoral head at the areas of numerous subchondral cysts. There is no dislocation. No destructive neoplastic process identified. There is a calcific density along the anterior femoral head which was present on prior CTs. This is projecting into the joint space. This is probably an osteophyte. No fluid collections or abnormal enhancement identified surrounding the hip. No joint effusion. No abscess or soft tissue mass. CT/CT hip LT w con [id number] IMPRESSION: 1. Severe degenerative joint disease involving the LEFT hip. Numerous subchondr al cysts on both sides of the joint. 2. No enhancing fluid collection or synovitis.
[2024-12-28 12:09] LABS: Troponin(5th) Baseline 12 ng/L (0-10)
[2024-12-28 12:12] LABS: Alanine Aminotransferase 31 U/L (0-33); Albumin Level 4.4 g/dL (3.5-5.2); Alkaline Phosphatase 71 U/L (35-105); Aspartate Amino Transferase 55 U/L (0-32); Blood Urea Nitrogen 13 mg/dL (8-23); Calcium 10.2 mg/dL (8.5-10.5); Carbon Dioxide 25 mmol/L (22-29); Chloride 99 mmol/L (98-107); Globulin 3.4 g/dL (1.3-4.6); Glucose 115 mg/dL (65-115); Osmolality Calculated 287 mOsm/kg (285-295); Sodium 138 mmol/L (136-145); Total Protein 7.8 g/dL (6.6-8.7)
[2024-12-28 12:15] LABS: Anion Gap 18.1 (5-19); Potassium 4.1 mmol/L (3.5-5.1)
[2024-12-28] MEDS: iohexol 350 mg/mL 500 mL Btl (per mL) IV (12:37)
--- NOTE | 2024-12-28 13:09 | ED_ITS ---
HPI - Extremity Problem 2 General: Chief complaint: Extremity Problem,Nontraumatic Stated complaint: cp, hip pain Time Seen by Provider: 12/28/24 11:37 History of Present Illness: 59-year-old female presents emergency ro om complaining of hip pain and chest pain. She states she has had excruciating pain for 4 days since she had a hip injection done. Some report of subjective fevers she called her doctor they advised patient to come to the emergency room in case she has an infection. She is also complaining of some chest discomfort with some shortness of breath. No vomiting no diarrhea no abdominal pain. No fecal incontinence or urinary retention. No dysuria urgency or frequency no hematuria. Associated symptoms: Deny chest pain, fever(s) or rash Related Data Home Medications ?Medication ?Instructions ?Recorded ?Confirmed insulin lispro 100 unit/mL See Rx Instructions .Route .COMPLEX 04/22/24 12/28/24 subcutaneous pen (Admelog SoloStar U-100 Insulin lispro) blood-glucose sensor 12/28/24 12/28/24 duloxetine 30 mg capsule,delayed 30 mg PO BID 12/28/24 12/28/24 release Previous Rx's ?Medication ?Instructions ?Recorded manual wheelchair #1 ea 10/03/19 TENS unit and equipment #1 ea 10/01/22 CPAP 6-16cm setting #1 ea 11/23/22 CPAP mask, tubing, supplies #1 ea 11/23/22 Left wrist brace #1 ea 12/06/22 lancets #100 ea 01/24/23 lancets #200 ea 02/21/23 motorized electric scooter #1 ea 02/21/23 blood sugar diagnostic (Blood #200 ea 03/04/23 Glucose Test strips) blood sugar diagnostic (Blood #200 ea 03/16/23 Glucose Test strips) lancets #200 ea 03/16/23 naloxone 4 mg/actuation nasal 4 mg intranasal Q2M PRN opioid 03/16/23 spray (Narcan) overdose #2 ea pen needle, diabetic 30 gauge x #100 ea 03/17/23/ (Pen Needle) dexcom G7 transmitter #1 ea 07/29/23 aspirin 81 mg chewable tablet 81 mg PO QAM #60 tabs loperamide 2 mg tablet (Imodium 2 mg PO QID PRN loose stool #30 01/18/24 A-D) tabs blood-glucose,nanoscience technician,cont #1 ea 03/06/24 (Dexcom G7 Desk Clerks Supervisor) portable oxygen concentrator #1 ea 06/21/24 meloxicam 15 mg tablet 15 mg PO QAM #90 tabs insulin glargine 100 unit/mL (3 25 unit (0.25 mL) SUBC UT QAM #15 mL 07/17/24 mL) subcutaneous pen (Lantus Solostar U-100 Insulin) gabapentin 600 mg tablet 600 mg PO TID #270 tabs 07/15 08/08 metformin 500 mg tablet 1,000 mg (2 x 500 mg) PO BID #360 07/30/24 tabs nicotine 14 mg/24 hr daily 1 patch transdermal DAILY # 28 ea 10/26/24 transdermal patch quetiapine 150 mg tablet,extended 150 mg PO BEDTIME #9 0 tabs 10/29/24 release 24 hr (Seroquel XR) tirzepatide (weight loss) 7.5 7.5 mg (0.5 mL) SUBCUT . qweekly #2 11/02/24 mg/0.5 mL subcutaneous pen injector mL wheelchair #1 ea 11/02/24 promethazine 25 mg tablet 25 mg PO TID PRN Nausea And 12/07/24 Vomiting #90 tabs cetirizine 10 mg tablet (Zyrtec) 10 mg PO DAILY PRN al lergy 12/12/24 symptoms #90 tabs famotidine 20 mg tablet 20 mg PO QDAY #90 tabs 12/20 hydrocodone 7.5 mg-acetaminophen 1 tab PO BID PRN pain 30 days #60 12/20/24 325 mg tablet tabs morphine 30 mg tablet,extended 30 mg PO .qdaily pain 3 0 days #30 12/20/24 release (MS Contin) tabs methylprednisolone 4 mg tablets in See Rx Instructions PO .COMPLEX 12/28/24 a dose pack (Medrol (Bao)) #21 ea fluticasone propionate 50 2 spray intranasal DAILY #16 grams 12/31/24 mcg/actuation nasal spray,suspension (Flonase Allergy Relief) Allergies Allergy/AdvReac Type Severity Reaction Status Date / Time ketorolac (From Toradol) Allergy Severe ALGY-Anaphy Verified 12/20/24 14:06 laxis Penicillins Allergy Severe ALGY-Anaphy Verified 12/20/24 14:06 laxis Sulfa (Sulfonamide Allergy Severe ALGY-Anaphy Verified 12/20/24 14:06 Antibiotics) laxis tetracycline Allergy Severe ALGY-Anaphy Verified 12/20/24 14:06 laxis lidocaine Allergy ALGY-Hives Verified 12/20/24 14:06 tramadol (From Ultram) Allergy ALGY-Difficulty Verified 12/20/24 14:06 Breathing Review of Systems 2 Const: Denies: fever(s) or chills Card: Denies: chest pain Resp: Denies: dyspnea GI: Denies: abdominal pain : Denies: dysuria, urinary frequency or urinary urgency Musc: Denies: neck pain or back pain Skin/Breast: Denies: rash PFSH ED 2 PFSH: Medical History Allergic conjunctivitis and rhinitis Adrenal mass Type 2 diabetes mellitus Hospital discharge follow-up Chronic hypercapnic respiratory failure Chronic respiratory failure with hypoxia Dyslipidemia Neuropathic pain, leg, bilateral Osteoarthritis IVELISSE (obstructive sleep apnea) GERD without esophagitis Chronic low back pain Pulmonary nodules Rheumatoid arthritis History of stroke Chronic cystitis delivery delivered Constipation Hematochezia Insomnia Community acquired pneumonia History of bipolar disorder History of hypertension Surgical History History of incisional hernia repair History of hysterectomy History of cholecystectomy History of tonsillectomy History of knee surgery Family History Mother , at age 78 COVID-19 Brother , at age 58 Cancer Colon Father , at age 45 Car occupant injured in traffic accident Cancer Colon Family/Other Cancer Paternal-lung Other Chronic kidney disease (CKD) Dementia Diabetes Hyperlipidemia Hypertension Lung disease Stroke Denies family history of CAD (coronary artery disease) Clotting disorder Psychiatric illness Anesthesia complication Bleeding disorder Social History Smoking and tobacco/nicotine status: current every day tobacco/nicotine user cigarettes Packs smoked per day: 0.5 Years cigarettes smoked: 30 [ Other cigarette details: Currently smoking 6-7/day] Quit status (tobacco/nicotine): considering quitting Alcohol intake: never Substance/Drug Use: former Adopted: No Lives independently: Yes Household members: spouse Marital status: Number of grandchildren: 2 Current occupational status: disabled Special sherine needs: No Agree to transfusion: Yes Female Reproductive History: Spontaneous abortions: No Physical Exam 2 Const: GENERAL APPEARANCE: cooperative ORIENTATION/CONSCIOUSNESS: Yes awake, Yes oriented to person, Yes oriented to place and Yes oriented to time HENMT: COMMON NORMALS: normocephalic, atraumatic and hearing grossly normal bilaterally HEAD & SCALP: normocephalic and atraumatic Resp: COMMON NORMALS: normal respiratory effort, No retractions, No use of accessory muscles and clear to auscultation bilaterally AUSCULTATION: clear to auscultation bilaterally Cardio: COMMON NORMALS: regular rate, regular rhythm and No murmurs present (Cardio) RATE: regular rate RHYTHM: regular rhythm GI: COMMON NORMALS: Soft to palpation and No hepatosplenomegaly present A USCULTATION: Yes normoactive bowel sounds PALPATION: Yes Soft to palpation, No Tenderness to palpation present (GI), No Guarding due to palpation present (GI) and Yes No hepatosplenomegaly present Extremity: COMMON NORMALS: normal to inspection, capillary refill normal, no clubbing, cyanosis or edema, no calf tenderness and no pedal edema Neuro: SENSORIUM/ORIENTATION: Yes oriented to person, Yes oriented to place and Yes oriented to time Skin: COMMON NORMALS: no rashes or lesions noted GENERAL SKIN EXAM: no rashes or lesions noted Course 2 Vital Signs: Vital signs: Vital Signs Temperature 97.9 F 12/28/24 15:34 Pulse Rate 87 12/28/24 15:34 Respiratory Rate 18 12/28/24 15:34 Blood Pressure 144/89 12/28/24 15:34 Pulse Oximetry 99 12/28/24 15:34 Oxygen Delivery Me thod Room Air 12/28/24 11:37 MDM - Extremity (Nontraumatic) Medical Decision Making White count of 13 7 sed rate is 42 CT does not show any joint effusion. With pain medication symptoms improved she has not had a fever. Will discharge patient home follow-up with Ortho as previously planned. Return if she has further problems. Patient prescribed she was tachycardic in the 130s this resolved after her pain was controlled. She is denying any chest pain at this time. Medical Records I reviewed the patient's medical records. Lab Data I reviewed the patient's lab results. 12/28/24 11:15 12/28/24 11:15 Radiology Impressions Chest X-Ray 12/28/24 11:37 IMPRESSION: 1. No acute cardiopulmonary finding. Hip/Pelvis X-Ray 12/28/24 11:43 IMPRESSION: 1. No obvious fracture. Moderately advanced DJD. Hip CT 12/28/24 12:08 IMPRESSION: 1. Severe degenerative joint disease involving the LEFT hip. Numerous subchondral cysts on both sides of the joint. 2. No enhancing fluid collection or synovitis. Laboratory Results WBC 13.73 10^3/uL (3.29-11.43) H 12/28/24 11:15 RBC 4.87 10^6/uL (3.85-5.65) 12/28/24 11:15 Hgb 13.90 g/dL (11.27-16.99) 12/28/24 11:15 Hct 44.4 % (36-47) 12/28/24 11:15 MCV 91.2 fl (85-98) 12/28/24 11:15 MCH 28.5 pg (27-33) 12/28/24 11:15 MCHC 31.3 g/dL (30-55) 12/28/24 11:15 RDW 13.7 % (12.1-15.1) 12/28/24 11:15 Plt Count 266 10^3/cmm (157-399) 12/28/24 11:15 MPV 10.1 fL (7.4-10.4) 12/28/24 11:15 Neut % (Auto) 54.0 % 12/28/24 11:15 Lymph % (Auto) 34.6 % 12/28/24 11:15 [place] % (Auto) 8.9 % 12/28/24 11:15 Eos % (Auto) 1.2 % 12/28/24 11:15 Baso % (Auto) 0.6 % 12/28/24 11:15 Neut # (Auto) 7.41 10^3/uL (1.8-7.7) 12/28/24 11:15 Lymph # (Auto) 4.8 10^3/uL (0.8-4.8) 12/28/24 11:15 [place] # (Auto) 1.2 10^3/uL (0.2-0.9) H 12/28/24 11:15 Eos # (Auto) 0.2 10^3/uL (0.0-0.8) 12/28/24 11:15 Baso # (Auto) 0.1 10^3/uL (0.0-0.1) 12/28/24 11:15 Nucleated RBC % (auto) 0 % 12/28/24 11:15 Nucleated RBCs # 0.0 /100WBC 12/28/24 11:15 ESR 42 mm/hr (0-15) H 12/28/24 11:15 Sodium 138 mmol/L (136-145) 12/28/24 11:15 Potassium 4.1 mmol/L (3.5-5.1) 12/28/24 11:15 Chloride 99 mmol/L (98-107) 12/28/24 11:15 Carbon Dioxide 25 mmol/L (22-29) 12/28/24 11:15 Anion Gap 18.1 (5-19) 12/28/24 11:15 BUN 13 mg/dL (8-23) 12/28/24 11:15 Creatinine 0.5 mg/dL (0.5-0.9) 12/28/24 11:15 GFR Calculation 125.9 mL/min (90-130) 12/28/24 11:15 Glucose 115 mg/dL (65-115) 12/28/24 11:15 Calculated Osmolality 287 mOsm/kg (285-295) 12/28/24 11:15 Calcium 10.2 mg/dL (8.5-10.5) 12/28/24 11:15 Total Bilirubin 0.2 mg/dL (0.15-1.2) 12/28/24 11:15 AST 55 U/L (0-32) H 12/28/24 11:15 ALT 31 U/L (0-33) 12/28/24 11:15 Alkaline Phosphatase 71 U/L (35-105) 12/28/24 11:15 Troponin T Baseline 12 ng/L (0-10) H 12/28/24 11:15 Troponin T 120 Minute 12.03 ng/L (0-10) H 12/28/24 13:14 Delta Troponin T 0.03 ABS# (0-10) 12/28/24 13:14 C-Reactive Protein 3.0 mg/L (0.0-4.9) 12/28/24 11:15 Total Protein 7.8 g/dL (6.6-8.7) 12/28/24 11:15 Albumin 4.4 g/dL (3.5-5.2) 12/28/24 11:15 Globulin 3.4 g/dL (1.3-4.6) 12/28/24 11:15 Urine Color Yellow (Yellow) 12/28/24 15:13 Urine Appearance Clear (CLEAR) 12/28/24 15:13 Urine pH 5.0 (5-7) 12/28/24 15:13 Ur Specific [place] 1.070 (1.005-1.030) H 12/28/24 15:13 Urine Protein Trace (Negative) A 12/28/24 15:13 Urine Glucose (UA) Negative (Normal) 12/28/24 15:13 Urine Ketones Negative (Negative) 12/28/24 15:13 Urine Blood Negative (Negative) 12/28/24 15:13 Urine Nitrate Negative (Negative) 12/28/24 15:13 Urine Bilirubin Negative (Negative) 12/28/24 15:13 Urine Urobilinogen 0.2 mg/dL (Negative) 12/28/24 15:13 Ur Leukocyte Esterase Negative (Negative) 12/28/24 15:13 Urine RBC 3-5 /hpf (0-2) 12/28/24 15:13 Urine WBC 0-5 /hpf (0-5) 12/28/24 15:13 Ur Squamous Epith Cells 0-5 /hpf (0-5) 12/28/24 15:13 Amorphous Sediment Not Reportable 12/28/24 15:13 Urine Bacteria Trace /hpf (NONE) 12/28/24 15:13 Hyaline Casts 0.40 /lpf 12/28/24 15:13 All radiology interpretation(s) finalized by discharge EKG Data EKG 1: Interpretation: 12/28/2024 1140 sinus tachycardia rate of 136 QTc [address] elevation. Compared to EKG 06/05/2024 no acute changes there are some rate related changes. Discharge Plan Discharge Patient Disposition: Home Clinical Impression: Degenerative joint disease of left hip Hip pain Qualifiers: Laterality: left Qualified Code(s): M25.552 - Pain in left hip Condition: Stable Prescriptions: New methylprednisolone [Medrol (Bao)] 4 mg tablets,dose pack See Rx Instructions .ROUTE .COMPLEX Qty: 21 0RF Rx Instructions: orally per package directions No Action (DME) manual wheelchair See Rx Instructions .Route .MEDSUPPLY Qty: 1 0RF Rx Instructions: As directed (DME) TENS unit and equipment See Rx Instructions .Route .MEDSUPPLY Qty: 1 0RF Rx Instructions: As directed tirzepatide (weight loss) 7.5 mg/0.5 mL pen injector 7.5 mg SUBCUT .qweekly Qty: 2 2RF (DME) wheelchair See Rx Instructions .Route .MEDSUPPLY Qty: 1 0RF Rx Instructions: As directed (DME) Left wrist brace See Rx Instructions .Route .MEDSUPPLY Qty: 1 0RF Rx Instructions: As directed (DME) lancets Misc See Rx Instructions .Route Qty: 100 0RF Rx Instructions: As directed (DME) lancets Misc See Rx Instructions .MEDSUPPLY Qty: 200 12RF Rx Instructions: Use as directed to prick skin for blood sugar checks (DME) motorized electric scooter See Rx Instructions .Route .MEDSUPPLY Qty: 1 0RF Rx Instructions: As directed (DME) Blood Glucose Test Strip See Rx Instructions .MEDSUPPLY Qty: 200 12RF Rx Instructions: Use as directed with glucometer to check blood sugar (DME) lancets Misc See Rx Instructions .MEDSUPPLY Qty: 200 12RF Rx Instructions: Use as directed to prick skin for blood sugar checks naloxone [Narcan] 4 mg/actuation spray,non-aerosol 4 mg intranasal Q2M PRN (Reason: opioid overdose) Qty: 2 0RF (DME) dexcom G7 transmitter See Rx Instructions .Route .MEDSUPPLY Qty: 1 2RF Rx Instructions: As directed loperamide [Imodium A-D] 2 mg tablet 2 mg PO QID PRN (Reason: loose stool) Qty: 30 0RF (DME) portable oxygen concentrator See Rx Instructions .Route .MEDSUPPLY Qty: 1 0RF Rx Instructions: As directed hydrocodone-acetaminophen 7.5-325 mg tablet 1 tab PO BID PRN (Reason: pain) 30 Days Qty: 60 0RF morphine [MS Contin] 30 mg tablet extended release 30 mg PO .qdaily 30 Days Qty: 30 0RF (DME) CPAP 6-16cm setting See Rx Instructions .ROUTE .MEDSUPPLY Qty: 1 0RF Rx Instructions: As directed (DME) CPAP mask, tubing, supplies See Rx Instructions .ROUTE .MEDSUPPLY Qty: 1 1RF Rx Instructions: As directed (DME) Blood Glucose Test Strip See Rx Instructions .MEDSUPPLY Qty: 200 12RF Rx Instructions: Use as directed with glucometer to check blood sugar (DME) pen needle, diabetic [Pen Needle] 30 gauge x 5/16 needle See Rx Instructions .MEDSUPPLY Qty: 100 12RF Rx Instructions: Use as directed for insulin administration aspirin 81 mg tablet,chewable 81 mg PO QAM Qty: 60 0RF (DME) Dexcom G7 Desk Clerks Supervisor Misc See Rx Instructions .Route Qty: 1 3RF Rx Instructions: As directed meloxicam 15 mg tablet 15 mg PO QAM Qty: 90 1RF insulin glargine [Lantus Solostar U-100 Insulin] 100 unit/mL (3 mL) insulin pen 25 unit SUBCUT QAM Qty: 15 2RF metformin 500 mg tablet 1,000 mg PO BID Qty: 360 1RF gabapentin 600 mg tablet 600 mg PO TID Qty: 270 1RF nicotine 14 mg/24 hr patch 24 hour 1 patch transdermal DAILY Qty: 28 0RF quetiapine [Seroquel XR] 150 mg tablet extended release 24 hr 150 mg PO BEDTIME Qty: 90 0RF promethazine 25 mg tablet 25 mg PO TID PRN (Reason: Nausea And Vomiting) Qty: 90 0RF cetirizine [Zyrtec] 10 mg tablet 10 mg PO DAILY PRN (Reason: allergy symptoms) Qty: 90 1RF famotidine 20 mg tablet 20 mg PO QDAY Qty: 90 1RF fluticasone propionate [Flonase Allergy Relief] 50 mcg/actuation spray,suspension 2 spray intranasal DAILY Qty: 16 0RF Rx Instructions: administer into each nostril insulin lispro [Admelog SoloStar U-100 Insulin] 100 unit/mL insulin pen See Rx Instructions .ROUTE .COMPLEX Rx Instructions: Please check blood sugar 3 times a day with meals, inject 2 units subcu for blood sugars between 101 and 200, 4 units for blood sugar between 201 and 300, 6 units for blood sugar above 300, duloxetine 30 mg capsule,delayed release(DR/EC) 30 mg PO BID (DME) blood-glucose sensor Device See Rx Instructions .Route Rx Instructions: As directed Discharge Orders: Discharge ED (Routine); Ordered 12/28/24 Ordered By: Dheeraj Suarez Referrals: Robbie Burrell MD [Primary Care Provider, Family Practice] Discharge Diet: Usual diet Discharge Activity: Increase activity as tolerated Patient Instructions: Opioid Safety, Pain Management, Patient Portal & Annette Instructions Activity Restrictions/Additional Instructions: Janeth [facility]. It is very important that you follow up as instructed or that you return to the Emergency Department should you have concerns or if your condition changes or worsens in any way. Emergency department visits are focused on emergent conditions, in some cases you may require further evaluation on an outpatient basis. You are seen emergency room for sed rate was minimally elevated CT did not show any signs of infection. Will discharge you home with a oral steroid taper continue to use meloxicam and medications previously prescribed for pain follow- up with your orthopedic physician. Urine was checked for signs of infection and there was no infection noted. (Please note that included in your discharge packet is information concerning opioid safety and pain management. This information is given to all patients were discharged from the ER regardless of their discharge diagnosis or the medicines they usually take or are prescribed.) Print Language: Hebrew Coding Level of Care Code ED Security Installation Technician for Abdirahman Hill
--- NOTE | 2024-12-28 13:37 | ECG_ITS ---
[facility] Date: 2024-12-28 Pat Name: Cyndi Baca Department: Room: Gender: Female Qualitative Field Coordinator: : 1965 Requested By: Dheeraj Ortiz Order Number: [id number] Ramila MD: Jesse Linda M.D. Measurements Intervals [place] Rate: 136 P: 0 ND: 0 QRS: -12 QRSD: 88 T: 102 QT: 281 QTc: 423 Interpretive Statements SUPRAVENTRICULAR TACHYCARDIA LEFT VENTRICULAR HYPERTROPHY AND ST-T CHANGE [VOLTAGE CRITERIA PLUS ST/T ABNORMALITY] POSSIBLE SEPTAL MYOCARDIAL INFARCTION , PROBABLY OLD [30 ms Q WAVE IN V1/V2] Compared to ECG 06/05/2024 18:15:20 Myocardial infarct finding now present Sinus rhythm no longer present Ventricular premature complex(es) no longer present ST (T wave) deviation still present Electronically Signed On 12-28-2024 13:14:50 HOUSEKEEPER HOME by Jesse Linda M.D. [email or web address] [id number]
[2024-12-28 13:41] LABS: Troponin 5 2HR 12.03 ng/L (0-10); Troponin 5 2HR Delta 0.03 ABS# (0-10)
[2024-12-28] MEDS: ondansetron 2 mg/ML SDV 2 mL 4 MG IVP (14:33)
[2024-12-28 14:54] VITALS: RESP 18
[2024-12-28 15:21] LABS: Glucose Urine UA Negative (Normal); Nitrate Urine Negative (Negative)
[2024-12-28 15:23] LABS: Add Urine Microscopic? YES
[2024-12-28 15:24] LABS: Specific Gravity, Urine 1.070 (1.005-1.030)
[2024-12-28 15:34] VITALS: BP 144/89; PULSE 87; RESP 18; TEMP 36.6; O2SAT 99
== END 2024-12-28 15:37 | disposition home or self-care (01) ==
PROVIDERS: Emergency Provider Family Medicine; PCP Family Medicine
DX: M16.12 Unilateral primary osteoarthritis, left hip (principal); Z79.4 Long term (current) use of insulin; Z79.84 Long term (current) use of oral hypoglycemic drugs; Z79.82 Long term (current) use of aspirin; F17.210 Nicotine dependence, cigarettes, uncomplicated; E11.9 Type 2 diabetes mellitus without complications; I10 Essential (primary) hypertension; E78.5 Hyperlipidemia, unspecified
CPT/HCPCS: 36415; 71045; 73502; 73701; 80053; 81001; 84484; 85025; 85651; 86140; 93005; 96374; 96375; 96376; 99285; J0780; J2270; J2405; J9999

== ENCOUNTER 2025-01-08 17:15 | Emergency (ER) | payer MEDICAID, SELFPAY ==
--- OUTSIDE RECORDS SUMMARY | 2023-08-10 03:00 | XMS_ITS ---
Author Organization [facility] Address [address] [place] [address] Support Name Relationship Address , Radha Crow Emergency Contact Unknown Unavailable Cyndi Baca Guarantor Unknown [phone] Care Team Providers Care Sales Agent Casualty Insurance Name Role Phone Dr Benson Deleon DO Primary Care Provider Mary Kate Malik Unavailable [phone] Hector Pearce Unavailable Unavailable Migration, Provider Unavailable Unavailable REASON FOR VISIT EMR-Ronn Vital Signs Height 71.00 in 08/10/2023 Weight 348.00 lbs 08/10/2023 BMI 49 kg/m2 08/10/2023 Height-cm 180.34 cm 08/10/2023 Weight-kg 157.85 kg 08/10/2023 Encounters Encounter Location Date Provider Diagnosis Migrated_Facility 0 0 08/10/2023 Provider Migration Obesity, unspecified E66.9 ; Chronic pain due to trauma G89.21 ; Chronic pain syndrome G89.4 ; Unilateral primary osteoarthritis, left hip M16.12 ; Other intervertebral disc degeneration, lumbar region M51.36 ; Radiculopathy, lumbosacral region M54.17 ; 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 ; Unspecified abnormalities of gait and mobility R26.9 and custodial (current) use of opiate analgesic Z79.891 Assessments Encounter Date Diagnosis (ICD Code) Assessment Notes Treatment Notes Treatment Clinical Notes Section Notes 08/10/2023 Obesity, unspecified (ICD-10 - E66.9) 08/10/2023 Chronic pain due to trauma (ICD-10 - G89.21) 08/10/2023 Chronic pain syndrome (ICD-10 - G89.4) 08/10/2023 Unilateral primary osteoarthritis, left hip (ICD-10 - M16.12) 08/10/2023 Other intervertebral disc degeneration, lumbar region (ICD-10 - M51.36) 08/10/2023 Radiculopathy, lumbosacral region (ICD-10 - M54.17) 08/10/2023 Idiopathic aseptic necrosis of left femur (ICD-10 - M87.052) 08/10/2023 Unspecified abnormalities of gait and mobility (ICD-10 - R26.9) 08/10/2023 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 Assessment: * Assessment: 1. O besity, unspecified - E66.9 2 . C hronic pain due to trauma - G89.21? 3. C hronic pain syndrome - G89.4 4 . U nilateral primary osteoarthritis, left hip - M16.12 5 . O ther intervertebral disc degeneration, lumbar region - M51.36 6 . R adiculopathy, lumbosacral region - M54.17 ?7. I diopathic aseptic necrosis of left femur - M87.052 8 . U nspecified abnormalities of gait and mobility - R26.9 9 . L shorty term (current) use of opiate analgesic - Z79.891 * Electronic signature of Prov ider Migration on 01/08/2025 at 05:20 PM LINUX SUPPORT ENGINEER Sign off status: Pending * Provider: Margaret [facility] Date: 0 08/10/2023 Generated for Alexi rupal/Indy/eTransmitting on: 1 03/10/2024 05:20 PM LINUX SUPPORT ENGINEER
--- OUTSIDE RECORDS SUMMARY | 2023-12-10 03:00 | XMS_ITS ---
Author Organization [facility] Address [address] [place] [address] Support Name Relationship Address , Radha Crow Emergency Contact Unknown Unavailable Cyndi Baca Guarantor Unknown [phone] Care Team Providers Care Road Engineer Freight Name Role Phone Adrienne CRAFT, Dr Knowles Primary Care Provider Mary Kate Malik Unavailable [phone] Hector Pearce Unavailable Unavailable Migration, Provider Unavailable Unavailable REASON FOR VISIT EMR-Ronn Encounters Encounter Location Date Provider Diagnosis Migrated_Facility 0 0 12/10/2023 Provider Migration Plan Of Treatment Medication Medication Name Sig Start Date Stop Date Notes HYDROcodone-Acetaminop hen 7.5-325 MG Oral Tablet 1 Tablet Every 6 Hours PRN not to exceed 4 tablets per day 08/10/2023 09/09/2023 *Reorder from [facility] an for eRx and Interaction Alerts* morphine 15 mg oral tablet extended release 1 Tablet three times a day 08/12/2023 09/11/2023 [facility]* Progress Notes * Cyndi BACA ADOB: [birth year] (59 yo F)Acc No.[id number]:12/10/2023 Patient: Elisha Cyndi DEL ROSARIO :1965 A ge:58 Y S ex:Female Address:[address] [place] [id number] * Refills Stop HYDROcodone-Acetaminophen 7.5-325 MG Oral Tablet, 1 Tablet Every 6 Hours PRN not to exceed 4 tablets per day Stop morphine 15 mg oral tablet extended release, 1 Tablet three times a day Subjective: * Chief Complaints: * E MR-Ronn * * Date:
--- OUTSIDE RECORDS SUMMARY | 2023-12-11 03:00 | XMS_ITS ---
Author Organization [facility] Address [address] [place] [address] Support Name Relationship Address , Radha Crow Emergency Contact Unknown Unavailable Cyndi Baca Guarantor Unknown [phone] Care Team Providers Care Detonator Maker Name Role Phone Adrienne CRAFT, Dr Knowles Primary Care Provider Mary Kate Malik Unavailable [phone] Hector Pearce Unavailable Unavailable Migration, Provider Unavailable Unavailable REASON FOR VISIT EMR-[facility]n Medications Medication SIG (Take, Route, Frequency, Duration) Notes Start Date End Date Status Famotidine *Pick strength-f orm from [facility] for eRX* Active Gabapentin *Pick strength-f orm from [facility] for eRX* Active Metformin *Reorder from [facility] for eRx and Interaction Alerts* Active atorvastatin *Reorder from [facility] for eRx and Interaction Alerts* Active quetiapine *Reorder from [facility] for eRx and Interaction Alerts* Active glipiZIDE *Pick strength-f orm from [facility] for eRX* Active Escitalopram Oxalate *Pick stren gth-form from [facility] for eRX* Active Social History Social History Additional Details Category Social Info Options Details Migrated Social History Migrated Social History Alcoholic beverages? - No, Currently on disability? - Yes, Drug or substance abuse? - No, Marital Status - , Nonprescription drug use? - No, Participation in detoxification or rehabilitation - No, Smoking - 1 PPD, Working currently? - No Encounters Encounter Location Date Provider Diagnosis Migrated_Facility 0 0 12/11/2023 Provider Migration Plan Of Treatment No Information Progress Notes * Cyndi BACA ADOB: [birth year] (59 yo F)Acc No.[id number]:12/11/2023 Patient: Elisha Cyndi DEL ROSARIO :1965 A ge:58 Y S ex:Female Address:[address] [place] [id number] Subjective: * Chief Complaints: * E Josefa * Surgical History: section cholecystectomy Hysterectomy * Family History: M igrated Family History: : Arthritis, C ancer, D iabetes, H igh blood pressure. * Social History: M igrated Social History: M igrated Social History: Alcoholic beverages? - No, C urrently on disability? - Yes, D rug or substance abuse? - No, M arital Status - , N onprescription drug use? - No, Participation in detoxification or rehabilitation - No, S moking - 1 PPD, W orking currently? - No. * Medications: T akingatorvastatin , Notes to Pharmacist: *Reorder from [facility] for eRx and Interaction Alerts*Escitalopram Oxalate , Notes to Pharmacist: *Pick strength- form from [facility] for eRX*quetiapine , Notes to Pharmacist: *Reorder from [facility] for eRx and Interaction Alerts*Metformin , Notes to Pharmacist: *Reorder from [facility] for eRx and Interaction Alerts*Famotidine , Notes to Pharmacist: *Pick strength- form from [facility] for eRX*glipiZIDE , Notes to Pharmacist: *Pick strength-form from [facility] for eRX*Gabapentin , Notes to Pharmacist: *Pick strength-form from [facility] for eRX*Taking atorvastatin , Notes to Pharmacist: *Reorder from [facility] for eRx and Interaction Alerts*Taking Escitalopram Oxalate , Notes to Pharmacist: *Pick strength-form from [facility] for eRX*Taking quetiapine , Notes to Pharmacist: *Reorder from [facility] for eRx and Interaction Alerts*Taking Metformin , Notes to Pharmacist: *Reorder from [facility] for eRx and Interaction Alerts*Taking Famotidine , Notes to Pharmacist: *Pick strength-form from [facility] for eRX*Taking glipiZIDE , Notes to Pharmacist: *Pick strength-form from [facility] for eRX*Taking Gabapentin , Notes to Pharmacist: *Pick strength-form from [facility] for eRX* * * Date:
--- NOTE | 2025-01-08 17:14 | XRR_ITS ---
PROCEDURE INFORMATION: Exam: XR Chest Exam date and time: 01/08/2025 5:22 PM Age: 59 years old Clinical indication: Pain; Chest pressure; Additional info: Cp TECHNIQUE: Imaging protocol: Radiologic exam of the chest. Views: 1 view. COMPARISON: CR XR chest 1V portable [id number] 12/28/2024 11:46 AM FINDINGS: Lungs: Unremarkable. No consolidation. Pleural spaces: Unremarkable. No pleural effusion. No pneumothorax. Heart/Mediastinum: Unremarkable. No cardiomegaly. Bones/joints: Unremarkable. XR/XR chest 1V portable [id number] IMPRESSION: No acute findings.
--- NOTE | 2025-01-08 17:14 | ECG_ITS ---
[facility] Test Date: 2025-01-08 Pat Name: Cyndi Baca Department: Room: Gender: Female Terra Cotta Mold Maker: : 1965 Requested By: Karen Oviedo Order Number: [id number] Ramila MD: Marbella Blankenship M.D. Measurements Intervals [place] Rate: 120 P: 59 [place]: 164 QRS: -25 QRSD: 106 T: 107 QT: 308 QTc: 435 Interpretive Statements SINUS TACHYCARDIA WITH OCCASIONAL VENTRICULAR PREMATURE COMPLEXES LEFT VENTRICULAR HYPERTROPHY AND ST-T CHANGE POSSIBLE SEPTAL MYOCARDIAL INFARCTION , OF INDETERMINATE AGE [30 ms Q WAVE IN V1/V2] Compared to ECG 12/28/2024 11:41:10 Ventricular premature complex(es) now present Supraventricular tachycardia no longer present ST (T wave) deviation still present Myocardial infarct finding still present Electronically Signed On 01-10-2025 17:48:12 AIRPORT RAMP ATTENDANT by Marbella Blankenship M.D. [id number]
[2025-01-08 17:16] VITALS: BP 151/98; PULSE 129; RESP 24; TEMP 36.6; O2SAT 97
--- OUTSIDE RECORDS SUMMARY | 2025-01-08 17:19 | XMS_ITS | Encounter Summary ---
Author Organization [facility] Address [address] [place] [address] Care Team Providers Care Trip Motor Operator Name Role Phone Zack Gandara MD Primary Care Provider Encounter Details Date Type Department Care Team (Latest Contact Info) Description 03/24/[address] 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
--- OUTSIDE RECORDS SUMMARY | 2025-01-08 17:19 | XMS_ITS | Encounter Summary ---
Author Organization [facility] Address [address] [place] [address] Care Team Providers Care Lpn Rn Name Role Phone Zack Gandara MD Primary Care Provider Encounter Details Date Type Department Care Team (Latest Contact Info) Description 04/13/2004 Outpatient Historical [facility] Urgent [address] [place] [address] Gerry Watson MD [address] [facility] [address] [place] [address] INFEC OTITIS EXTERNA NOS (Primary Dx) Social History Tobacco Use Types Packs/Day Years Used Date Smoking Tobacco: Never Assessed Comments Unknown Sex and Gender Information Value Date Recorded Sex Assigned at Not on file Legal Sex Female 4:09 AM EDGER HAND Gender Identity Not on file Sexual Orientation Not on file documented as of this encounter Plan of Treatment Not on file documented as of this encounter Visit Diagnoses Diagnosis Infective otitis externa, unspecified- Primary documented in this encounter Care Teams Lpn Rn Relationship Specialty Start Date End Date Zack Gandara MD PCP - General Family Practice 01/23/19 03/19/19 documented as of this encounter
--- OUTSIDE RECORDS SUMMARY | 2025-01-08 17:19 | XMS_ITS | Encounter Summary ---
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 ASSESSMENT TRIAGE NOTE Triage Note: Mercury Cracking Tester Leia Resendez added this note on May 24 2014 7:42PM: Advised to see UC if fever or worsening symptoms. [place] address of the [facility] in [facility]. TRIAGE/OUTCOME Guideline Title: Information Only Call; No [...] on filedocumented in this encounter Care Teams Plant And Equipment Worker Relationship Specialty Start Date End Date Zack Gandara MD PCP - General Family Practice 01/23/19 03/19/19 documented as of this encounter
--- OUTSIDE RECORDS SUMMARY | 2025-01-08 17:19 | XMS_ITS | Encounter Summary ---
Author Organization [facility] Address [address] [place] [address] Care Team Providers Care Maple Syrup Maker Name Role Phone Zack Gandara MD Primary Care Provider Encounter Details Date Type Department Care Team (Latest Contact Info) Description 06/04/2005 Outpatient Historical [facility] Family Medicine [address] [place] [address] Juancarlos Obrien MD NO ADDRESS ON FILE Lumbago (Primary Dx) Social History Tobacco Use Types Packs/Day Years Used Date Smoking Tobacco: Never Assessed Comments Unknown Sex and Gender Information Value Date Recorded Sex Assigned at Not on file Legal Sex Female 4:09 AM PATIENT SUPPORT REPRESENTATIVE Gender Identity Not on file Sexual Orientation Not on file documented as of this encounter Plan of Treatment Not on file documented as of this encounter Visit Diagnoses Diagnosis Lumbago- Primary documented in this encounter Care Teams Maple Syrup Maker Relationship Specialty Start Date End Date Zack Gandara MD PCP - General Family Practice 01/23/19 03/19/19 documented as of this encounter
--- OUTSIDE RECORDS SUMMARY | 2025-01-08 17:19 | XMS_ITS | Encounter Summary ---
Author Organization [facility] Address [address] [place] [address] Care Team Providers Care Primary School Teacher Name Role Phone Zack Gandara MD Primary Care Provider [phone]- [phone] Encounter Details Date Type Department Care Team (Late st Contact Info) Description 05/14/2004 Outpatient Historical [facility] Medicine- [facility] [address] [place] [address] David Mendoza MD NO ADDRESS ON FILE LUMBAGO (Primary Dx); OBESITY NOS Social History Tobacco Use Types Packs/Day Years Used Date Smoking Tobacco: Never Assessed Comments Unknown Sex and Gender Information Value Date Recorded Sex Assigned at Not on file Legal Sex Female 4:09 AM DOLLY DRIVER Gender Identity Not on file Sexual Orientation Not on file documented as of this encounter Plan of Treatment Not on file documented as of this encounter Visit Diagnoses Diagnosis Lumbago- Primary Obesity, unspecified documented in this encounter Care Teams Primary School Teacher Relationship Specialty Start Date End Date Zack Gandara MD PCP - General Family Practice 01/23/19 03/19/19 documented as of this encounter
--- OUTSIDE RECORDS SUMMARY | 2025-01-08 17:19 | XMS_ITS | Encounter Summary ---
Author Organization [facility] Address [address] [place] [address] Care Team Providers Care Tire Builder Heavy Service Name Role Phone Zack Gandara MD Primary Care Provider [phone] Encounter Details Date Type Department Care Team (Latest Contact Info) Description 03/22/2005 Outpatient Historical [facility] Medicine [address] [place] [address] Juancarlos Obrien MD NO ADDRESS ON FILE LUMBAGO (Primary Dx); BIPOLAR - MOST RECENTLY MANIC NOS (CMS/HCC) Social History Tobacco Use Types Packs/Day Years Used Date Smoking Tobacco: Never Assessed Comments Unknown Sex and Gender Information Value Date Recorded Sex Assigned at Not on file Legal Sex Female 4:09 AM COTTON BREEDER Gender Identity Not on file Sexual Orientation Not on file documented as of this encounter Plan of Treatment Not on file documented as of this encounter Visit Diagnoses Diagnosis Lumbago- Primary Bipolar I disorder, most recent episode (or current) manic, unspecified (CMS/HCC) Bipolar I disorder, most recent episode (or current) manic, unspecified documented in this encounter Care Teams Tire Builder Heavy Service Relationship Specialty Start Date End Date Zack Gandara MD PCP - General Family Practice 01/23/19 03/19/19 documented as of this encounter
--- OUTSIDE RECORDS SUMMARY | 2025-01-08 17:19 | XMS_ITS | Encounter Summary ---
Author Organization [facility] Address [address] [place] [address] Care Team Providers Care Wall To Wall Carpet Installer Name Role Phone Zack Gandara MD Primary Care Provider Encounter Details Date Type Department Care Team (Late st Contact Info) Description 01/02/2005 Emergency [facility] [address] [place] [address] Walter Rubio II, MD NO ADDRESS ON FILE Moisés Nowak DO [address] [place] [id number] LUMBAGO (Primary Dx) Social History Tobacco Use Types Packs/Day Years Used Date Smoking Tobacco: Never Assessed Comments Unknown Sex and Gender Information Value Date Recorded Sex Assigned at Not on file Legal Sex Female 4:09 AM HYDRAULIC ASSEMBLER Gender Identity Not on file Sexual Orientation Not on file documented as of this encounter Plan of Treatment Not on file documented as of this encounter Visit Diagnoses Diagnosis Lumbago- Primary documented in this encounter Care Teams Wall To Wall Carpet Installer Relationship Specialty Start Date End Date Zack Gandara MD PCP - General Family Practice 01/23/19 03/19/19 documented as of this encounter
--- OUTSIDE RECORDS SUMMARY | 2025-01-08 17:19 | XMS_ITS | Encounter Summary ---
Author Organization [facility] Address [address] [place] [address] Care Team Providers Care Dominatrix Name Role Phone Zack Gandara MD Primary Care Provider Encounter Details Date Type Department Care Team (Late st Contact Info) Description 07/05/2005 Outpatient Historical [facility] Family Medicine [address] [place] [address] Paola Waters PA [address] [place] [id number] Routine Gynecological Examination (Primary Dx) Social History Tobacco Use Types Packs/Day Years Used Date Smoking Tobacco: Never Assessed Comments Unknown Sex and Gender Information Value Date Recorded Sex Assigned at Not on file Legal Sex Female 4:09 AM DIGITIZER OPERATOR Gender Identity Not on file Sexual Orientation Not on file documented as of this encounter Plan of Treatment Not on file documented as of this encounter Visit Diagnoses Diagnosis Routine gynecological examination- Primary documented in this encounter Care Teams Dominatrix Relationship Specialty Start Date End Date Zack Gandara MD PCP - General Family Practice 01/23/19 03/19/19 documented as of this encounter
--- OUTSIDE RECORDS SUMMARY | 2025-01-08 17:19 | XMS_ITS | Encounter Summary ---
Author Organization [facility] Address [address] [place] [address] Care Team Providers Care Crystal Mounter Name Role Phone Zack Gandara MD Primary Care Provider [phone] Encounter Details Date Type Department Care Team (Latest Contact Info) Description 06/29/2005 Outpatient Historical [facility] Medicine [address] [address] Juancarlos Obrien MD NO ADDRESS ON FILE Other Malaise and Fatigue (Primary Dx); Dyspareunia; Unspecified Sleep Apnea; Unspecified Constipation Social History Tobacco Use Types Packs/Day Years Used Date Smoking Tobacco: Never Assessed Comments Unknown Sex and Gender Information Value Date Recorded Sex Assigned at Not on file Legal Sex Female 4:09 AM SLATE MIXER Gender Identity Not on file Sexual Orientation Not on file documented as of this encounter Plan of Treatment Not on file documented as of this encounter Visit Diagnoses Diagnosis Other malaise and fatigue- Primary Dyspareunia Unspecified sleep apnea Unspecified constipation documented in this encounter Care Teams Crystal Mounter Relationship Specialty Start Date End Date Zack Gandara MD PCP - General Family Practice 01/23/19 03/19/19 documented as of this encounter
--- OUTSIDE RECORDS SUMMARY | 2025-01-08 17:19 | XMS_ITS | Encounter Summary ---
Author Organization [facility] Address [address] [place] [address] Care Team Providers Care Coal Wheeler Name Role Phone Zack Gandara MD Primary Care Provider [phone]- [phone] Encounter Details Date Type Department Care Team (Latest Contact Info) Description 02/19/2004 Outpatient Historical [facility] Internal Medicine and Pediatrics-[address] [place] [address] Karina Garibay MD NO ADDRESS ON FILE ACUTE URI NOS (Primary Dx) Social History Tobacco Use Types Packs/Day Years Used Date Smoking Tobacco: Never Assessed Comments Unknown Sex and Gender Information Value Date Recorded Sex Assigned at Not on file Legal Sex Female 4:09 AM HUMAN RESOURCE STATISTICIAN Gender Identity Not on file Sexual Orientation Not on file documented as of this encounter Plan of Treatment Not on file documented as of this encounter Visit Diagnoses Diagnosis Acute upper respiratory infections of unspecified site- Primary documented in this encounter Care Teams Coal Wheeler Relationship Specialty Start Date End Date Zack Gandara MD PCP - General Family Practice 01/23/19 03/19/19 documented as of this encounter
--- OUTSIDE RECORDS SUMMARY | 2025-01-08 17:19 | XMS_ITS | Encounter Summary ---
Author Organization [facility] Address [address] [place] [address] Care Team Providers Care Trademark Paralegal Name Role Phone Zack Gandara MD Primary Care Provider [phone]- [phone] Encounter Details Date Type Department Care Team (Latest Contact Info) Description 08/06/2005 Outpatient Historical [facility] Family Medicine [address] [place] [address] Juancarlos Obrien MD NO ADDRESS ON FILE Other Malaise and Fatigue (Primary Dx); Unspecified Sleep Apnea; Depressive Disorder, not Elsewhere Classified Social History Tobacco Use Types Packs/Day Years Used Date Smoking Tobacco: Never Assessed Comments Unknown Sex and Gender Information Value Date Recorded Sex Assigned at Not on file Legal Sex Female 4:09 AM HEARTH FEEDER Gender Identity Not on file Sexual Orientation Not on file documented as of this encounter Plan of Treatment Not on file documented as of this encounter Visit Diagnoses Diagnosis Other malaise and fatigue- Primary Unspecified sleep apnea Depressive disorder, not elsewhere classified documented in this encounter Care Teams Trademark Paralegal Relationship Specialty Start Date End Date Zack Gandara MD PCP - General Family Practice 01/23/19 03/19/19 documented as of this encounter
--- OUTSIDE RECORDS SUMMARY | 2025-01-08 17:19 | XMS_ITS | Encounter Summary ---
Author Organization [facility] Address [address] [place] [address] Care Team Providers Care Design Assembler Name Role Phone Zack Gandara MD Primary Care Provider Encounter Details Date Type Department Care Team (Latest Contact Info) Description 08/31/2005 Outpatient Historical [facility] Medicine [address] [place] [address] Juancarlos Obrien MD NO ADDRESS ON FILE Sprain of Neck (Primary Dx); Sprain Thoracic Region Social History Tobacco Use Types Packs/Day Years Used Date Smoking Tobacco: Never Assessed Comments Unknown Sex and Gender Information Value Date Recorded Sex Assigned at Not on file Legal Sex Female 4:09 AM GRINDER SET UP OPERATOR INTERNAL Gender Identity Not on file Sexual Orientation Not on file documented as of this encounter Plan of Treatment Not on file documented as of this encounter Visit Diagnoses Diagnosis Sprain of neck- Primary Neck sprain and strain Sprain thoracic region Sprain of thoracic region documented in this encounter Care Teams Design Assembler Relationship Specialty Start Date End Date Zack Gandara MD PCP - General Family Practice 01/23/19 03/19/19 documented as of this encounter
--- OUTSIDE RECORDS SUMMARY | 2025-01-08 17:19 | XMS_ITS | Encounter Summary ---
Author Organization [facility] Address [address] [place] [address] Care Team Providers Care Laborer Poultry Hatchery Name Role Phone Zack Gandara MD Primary Care Provider [phone] Encounter Details Date Type Department Care Team (Late st Contact Info) Description 02/06/2005 Emergency [facility] [address] [place] [address] Phu Mir MD NO ADDRESS ON FILE Conversion, History NO ADDRESS ON FILE ANXIETY STATE NOS (Primary Dx); HEADACHE Social History Tobacco Use Types Packs/Day Years Used Date Smoking Tobacco: Never Assessed Comments Unknown Sex and Gender Information Value Date Recorded Sex Assigned at Not on file Legal Sex Female 4:09 AM SEAM PRESS OPERATOR Gender Identity Not on file Sexual Orientation Not on file documented as of this encounter Plan of Treatment Not on file documented as of this encounter Visit Diagnoses Diagnosis Anxiety state, unspecified- Primary Headache(784.0) Headache documented in this encounter Care Teams Laborer Poultry Hatchery Relationship Specialty Start Date End Date Zack Gandara MD PCP - General Family Practice 01/23/19 03/19/19 documented as of this encounter
--- OUTSIDE RECORDS SUMMARY | 2025-01-08 17:19 | XMS_ITS | Encounter Summary ---
Author Organization [facility] Address [address] [place] [address] Care Team Providers Care Procurement Services Manager Name Role Phone Zack Gandara MD Primary Care Provider +1- [phone] Encounter Details Date Type Department Care Team (Late st Contact Info) Description 04/30/2004 Outpatient Historical [facility] Medicine- [facility] [address] [place] [address] David Mendoza MD NO ADDRESS ON FILE LUMBAGO (Primary Dx); OBESITY NOS Social History Tobacco Use Types Packs/Day Years Used Date Smoking Tobacco: Never Assessed Comments Unknown Sex and Gender Information Value Date Recorded Sex Assigned at Not on file Legal Sex Female 4:09 AM PRECINCT POLICE SERGEANT Gender Identity Not on file Sexual Orientation Not on file documented as of this encounter Plan of Treatment Not on file documented as of this encounter Visit Diagnoses Diagnosis Lumbago- Primary Obesity, unspecified documented in this encounter Care Teams Procurement Services Manager Relationship Specialty Start Date End Date Zack Gandara MD PCP - General Family Practice 01/23/19 03/19/19 documented as of this encounter
--- OUTSIDE RECORDS SUMMARY | 2025-01-08 17:19 | XMS_ITS | Clinical Summary ---
Author Organization [facility] Address [address] Attn: Epic Prelude ADT DONI STUART [address] Care Team Providers Care Rn Care Manager Name Role Phone Unavailable Primary Care Provider Unavailabl e Allergies Active Allergy Reactions Criticality Noted Date Comments Ceftriaxone Hives High 09/17/2017 Ibuprofen Nausea and Vomiting Low 08/28/2010 Ketorolac Tromethamine Anaphylaxis,Hives High 2007 Lidocaine Rash Low Penicillins Hives High 12/06/2007 Prochlorperazine Edisylate Itching High 1 Propoxyphene N-Acetaminophen Nausea and Vomiting Low 05/20/2009 Sulfa (Sulfonamide Antibiotics) Hives High 1109/2009 Tetracycline Hives High 12/06/2007 Tramadol Anaphylaxis,Hives High [...] Encounters Date Type Department Care Team Description 01/01/2025 External Device Data ST[facility] ABSTRACTION Provider, Abstract 12/12/2024 External Device Data STL ABSTRACTION Provider, Abstract 11/27/2024 External Device Data [facility] ABSTRACTION Provider, Abstract 10/30/2024 External Device Data [facility] ABSTRACTION Provider, Abstract [...] on file Legal Sex Female 9:30 AM TRANSFER PUMPER Gender Identity Not on file Sexual Orientation [...] Done Comments Pre-Diabetes and Diabetes Screening 1964 FIT-DNA Q 3 years 2009 FIT/FOBT Q 1 year 2009 Flex Sig/CT Colonography Q 5 years 2009 RSV VACCINE (60+ or ) (1 - Risk 50-74 years 1-dose series) 2014 ZOSTER VACCINE (1 of 2) 2014 COLORECTAL SCREENING 07/05/2017 07/06/2007 Colorectal Cancer Screening 07/05/2017 DTAP/TDAP/TD VACCINES (2 - T d or Tdap) 07/28/2021 07/29/2011, 05/27/2002 INFLUENZA VACCINE (#1) 2024 9, 2013, 12/20/1995 HEPATITIS B VACCINES (1 of 3 - Risk 3-dose series) 2024 Insurance MEDICAID [place]
--- OUTSIDE RECORDS SUMMARY | 2025-01-08 17:19 | XMS_ITS | Encounter Summary ---
Author Organization [facility] Address [address] [place] [address] Care Team Providers Care Home Appliance Technician Name Role Phone Zack Gandara MD Primary Care Provider Encounter Details Date Type Department Care Team (Late st Contact Info) Description 02/19/2005 Emergency [facility] [address] [place] [address] Carito Proctor MD [address] [place] [address] Conversion, History NO ADDRESS ON FILE BRONCHITIS NOS (Primary Dx); BACKACHE NOS Social History Tobacco Use Types Packs/Day Years Used Date Smoking Tobacco: Never Assessed Comments Unknown Sex and Gender Information Value Date Recorded Sex Assigned at Not on file Legal Sex Female 4:09 AM WILDLIFE REHABILITATOR Gender Identity Not on file Sexual Orientation Not on file documented as of this encounter Plan of Treatment Not on file documented as of this encounter Visit Diagnoses Diagnosis Bronchitis, not specified as acute or chronic- Primary Backache, unspecified documented in this encounter Care Teams Home Appliance Technician Relationship Specialty Start Date End Date Zack Gandara MD PCP - General Family Practice 01/23/19 03/19/19 documented as of this encounter
--- OUTSIDE RECORDS SUMMARY | 2025-01-08 17:19 | XMS_ITS | Encounter Summary ---
Author Organization [facility] Address [address] [place] [address] Care Team Providers Care Hand Flesher Name Role Phone Zack Gandara MD Primary Care Provider [phone]- [phone] Encounter Details Date Type Department Care Team (Latest Contact Info) Description 05/14/2005 Outpatient Historical [facility] Medicine [address] [address] Juancarlos Obrien MD NO ADDRESS ON FILE Lumbago (Primary Dx); Bipolar Disorder, Unspecified (CMS/HCC) Social History Tobacco Use Types Packs/Day Years Used Date Smoking Tobacco: Never Assessed Comments Unknown Sex and Gender Information Value Date Recorded Sex Assigned at Not on file Legal Sex Female 4:09 AM CHILD CARE PROVIDER Gender Identity Not on file Sexual Orientation Not on file documented as of this encounter Plan of Treatment Not on file documented as of this encounter Visit Diagnoses Diagnosis Lumbago- Primary Bipolar disorder, unspecified (CMS/HCC) Bipolar disorder, unspecified documented in this encounter Care Teams Hand Flesher Relationship Specialty Start Date End Date Zack Gandara MD PCP - General Family Practice 01/23/19 03/19/19 documented as of this encounter
--- OUTSIDE RECORDS SUMMARY | 2025-01-08 17:19 | XMS_ITS | Encounter Summary ---
Author Organization [facility] Address [address] [place] [address] Care Team Providers Care Agricultural Specialist Name Role Phone Zack Gandara MD Primary Care Provider [phone]- [phone] Encounter Details Date Type Department Care Team (Latest Contact Info) Description 06/11/2005 Outpatient Historical [facility] Family Medicine [address] [place] [address] Juancarlos Obrien MD NO ADDRESS ON FILE Lumbago (Primary Dx); Sprain Lumbar Region Social History Tobacco Use Types Packs/Day Years Used Date Smoking Tobacco: Never Assessed Comments Unknown Sex and Gender Information Value Date Recorded Sex Assigned at Not on file Legal Sex Female 4:09 AM METAL BUILDINGS ASSEMBLER Gender Identity Not on file Sexual Orientation Not on file documented as of this encounter Plan of Treatment Not on file documented as of this encounter Visit Diagnoses Diagnosis Lumbago- Primary Sprain lumbar region Sprain of lumbar region documented in this encounter Care Teams Agricultural Specialist Relationship Specialty Start Date End Date Zack Gandara MD PCP - General Family Practice 01/23/19 03/19/19 documented as of this encounter
--- OUTSIDE RECORDS SUMMARY | 2025-01-08 17:19 | XMS_ITS | Encounter Summary ---
Author Organization [facility] Address [address] [place] [address] Care Team Providers Care Applications Developer Name Role Phone Zack Gandara MD Primary Care Provider Encounter Details Date Type Department Care Team (Latest Contact Info) Description 04/14/2005 Outpatient Historical [facility] Family Medicine [address] [address] Juancarlos Obrien MD NO ADDRESS ON FILE BIPOLAR - MOST RECENTLY MANIC NOS (CMS/HCC) (Primary Dx); SACROILIITIS NEC Social History Tobacco Use Types Packs/Day Years Used Date Smoking Tobacco: Never Assessed Comments Unknown Sex and Gender Information Value Date Recorded Sex Assigned at Not on file Legal Sex Female 4:09 AM STAFF NURSE MIDWIFE Gender Identity Not on file Sexual Orientation Not on file documented as of this encounter Plan of Treatment Not on file documented as of this encounter Visit Diagnoses Diagnosis Bipolar I disorder, most recent episode (or current) manic, unspecified (CMS/HCC)- Primary Bipolar I disorder, most recent episode (or current) manic, unspecified Sacroiliitis, not elsewhere classified documented in this encounter Care Teams Applications Developer Relationship Specialty Start Date End Date Zakc Gandara MD PCP - General Family Practice 01/23/19 03/19/19 documented as of this encounter
--- OUTSIDE RECORDS SUMMARY | 2025-01-08 17:19 | XMS_ITS | Encounter Summary ---
Author Organization [facility] Address [address] [place] [address] Care Team Providers Care Checking Department Supervisor Name Role Phone Unavailable Primary Care Provider Unavailabl e Encounter Details Date Type Department Care Team (Late st Contact Info) Description 01/01/2025 External Device Data [facility] ABSTRACTION Provider, Abstract NO ADDRESS ON FILE Social History Tobacco Use Types Packs/Day Years Used Date Smoking Tobacco: Former Cigarettes Smokeless Tobacco: Never Comments:Quit smoking: smoki ng since age 28; trying to quit with [...] on file Legal Sex Female 9:30 AM CLINICAL MATERIAL HANDLER Gender Identity Not on file Sexual Orientation Not on file documented as of this encounter Plan of Treatment Not on file documented as of this encounter Visit Diagnoses Not on filedocumented in this encounter
--- OUTSIDE RECORDS SUMMARY | 2025-01-08 17:19 | XMS_ITS | Encounter Summary ---
Author Organization [facility] Address [address] [place] [address] Care Team Providers Care Form Block Maker Name Role Phone Zack Gandara MD Primary Care Provider Encounter Details Date Type Department Care Team (Late st Contact Info) Description 01/04/2005 Emergency [facility] [address] [place] [address] Gian Downey MD NO ADDRESS ON FILE Moisés Nowak DO [address] [place] [id number] LUMBAGO (Primary Dx) Social History Tobacco Use Types Packs/Day Years Used Date Smoking Tobacco: Never Assessed Comments Unknown Sex and Gender Information Value Date Recorded Sex Assigned at Not on file Legal Sex Female 4:09 AM GUSSET STITCHER Gender Identity Not on file Sexual Orientation Not on file documented as of this encounter Plan of Treatment Not on file documented as of this encounter Visit Diagnoses Diagnosis Lumbago- Primary documented in this encounter Care Teams Form Block Maker Relationship Specialty Start Date End Date Zack Gandara MD PCP - General Family Practice 01/23/19 03/19/19 documented as of this encounter
--- OUTSIDE RECORDS SUMMARY | 2025-01-08 17:19 | XMS_ITS | Encounter Summary ---
Author Organization [facility] Address [address] [place] [address] Care Team Providers Care Card Mounter Name Role Phone Zack Gandara MD Primary Care Provider Encounter Details Date Type Department Care Team (Late st Contact Info) Description 01/28/2005 Emergency [facility] [address] [place] [address] Carito Proctor MD [address] [place] [address] Moisés Nowak DO [address] [facility] [[email or web address] [address] [place] [address] LUMBAGO (Primary Dx); DISC DEGENERATION NOS Social History Tobacco Use Types Packs/Day Years Used Date Smoking Tobacco: Never Assessed Comments Unknown Sex and Gender Information Value Date Recorded Sex Assigned at Not on file Legal Sex Female 4:09 AM ENROLLMENT NURSE Gender Identity Not on file Sexual Orientation Not on file documented as of this encounter Plan of Treatment Not on file documented as of this encounter Visit Diagnoses Diagnosis Lumbago- Primary Degeneration of intervertebral disc, site unspecified documented in this encounter Care Teams Card Mounter Relationship Specialty Start Date End Date Zack Gandara MD PCP - General Family Practice 01/23/19 03/19/19 documented as of this encounter
--- OUTSIDE RECORDS SUMMARY | 2025-01-08 17:19 | XMS_ITS | Encounter Summary ---
Author Organization [facility] Address [address] [place] [address] Care Team Providers Care Snipper Name Role Phone Zack Gandara MD Primary Care Provider Encounter Details Date Type Department Care Team (Latest Contact Info) Description 05/03/2005 Outpatient Historical [facility] Medicine [address] [place] [address] Juancarlos Obrien MD NO ADDRESS ON FILE Lumbago (Primary Dx); Bipolar Affective, Manic, Unspec (CMS/HCC) Social History Tobacco Use Types Packs/Day Years Used Date Smoking Tobacco: Never Assessed Comments Unknown Sex and Gender Information Value Date Recorded Sex Assigned at Not on file Legal Sex Female 4:09 AM MATERIAL DAMAGE ADJUSTER Gender Identity Not on file Sexual Orientation Not on file documented as of this encounter Plan of Treatment Not on file documented as of this encounter Visit Diagnoses Diagnosis Lumbago- Primary Bipolar I disorder, most recent episode (or current) manic, unspecified (CMS/HCC) Bipolar I disorder, most recent episode (or current) manic, unspecified documented in this encounter Care Teams Snipper Relationship Specialty Start Date End Date Zack Gandara MD PCP - General Family Practice 01/23/19 03/19/19 documented as of this encounter
--- OUTSIDE RECORDS SUMMARY | 2025-01-08 17:19 | XMS_ITS | Encounter Summary ---
Author Organization [facility] Address [address] [place] [address] Care Team Providers Care Application Support Lead Name Role Phone Zack Gandara MD Primary Care Provider Encounter Details Date Type Department Care Team (Late st Contact Info) Description 03/22/2004 Emergency [facility] [address] [place] [phone] Geovany Sy MD NO ADDRESS ON FILE SPRAIN LUMBAR REGION (Primary Dx) Social History Tobacco Use Types Packs/Day Years Used Date Smoking Tobacco: Never Assessed Comments Unknown Sex and Gender Information Value Date Recorded Sex Assigned at Not on file Legal Sex Female 4:09 AM CITRIX ARCHITECT Gender Identity Not on file Sexual Orientation Not on file documented as of this encounter Plan of Treatment Not on file documented as of this encounter Visit Diagnoses Diagnosis Sprain of lumbar region- Primary documented in this encounter Care Teams Application Support Lead Relationship Specialty Start Date End Date Zack Gandara MD PCP - General Family Practice 01/23/19 03/19/19 documented as of this encounter
--- OUTSIDE RECORDS SUMMARY | 2025-01-08 17:19 | XMS_ITS | Encounter Summary ---
Author Organization [facility] Address [address] [place] [address] Care Team Providers Care Analytics Senior Manager Name Role Phone Zack Gandara MD Primary Care Provider [phone]- [phone] Encounter Details Date Type Department Care Team (Latest Contact Info) Description 04/27/2004 Outpatient Historical [facility] [address] [place] [address] [place] [address] Dheeraj Ayers MD NO ADDRESS ON FILE BACKACHE NOS (Primary Dx) Social History Tobacco Use Types Packs/Day Years Used Date Smoking Tobacco: Never Assessed Comments Unknown Sex and Gender Information Value Date Recorded Sex Assigned at Not on file Legal Sex Female 4:09 AM DYER ASSISTANT Gender Identity Not on file Sexual Orientation Not on file documented as of this encounter Plan of Treatment Not on file documented as of this encounter Visit Diagnoses Diagnosis Backache, unspecified- Primary documented in this encounter Care Teams Analytics Senior Manager Relationship Specialty Start Date End Date Zack Gandara MD PCP - General Family Practice 01/23/19 03/19/19 documented as of this encounter
--- OUTSIDE RECORDS SUMMARY | 2025-01-08 17:19 | XMS_ITS | Encounter Summary ---
Author Organization [facility] Address [address] [place] [address] Care Team Providers Care Special Forces Officer Name Role Phone Zack Gandara MD Primary Care Provider [phone]- [phone] Encounter Details Date Type Department Care Team (Latest Contact Info) Description 04/27/2004 Outpatient Historical [facility] Pain [facility] [address] [place] [phone] Dheeraj Ayers MD NO ADDRESS ON FILE Lumbar disc displacement (Primary Dx) Social History Tobacco Use Types Packs/Day Years Used Date Smoking Tobacco: Never Assessed Comments Unknown Sex and Gender Information Value Date Recorded Sex Assigned at Not on file Legal Sex Female 4:09 AM REPORT ANALYST Gender Identity Not on file Sexual Orientation Not on file documented as of this encounter Plan of Treatment Not on file documented as of this encounter Visit Diagnoses Diagnosis Lumbar disc displacement- Primary Displacement of lumbar intervertebral disc without myelopathy documented in this encounter Care Teams Special Forces Officer Relationship Specialty Start Date End Date Zack Gandara MD PCP - General Family Practice 01/23/19 03/19/19 documented as of this encounter
--- OUTSIDE RECORDS SUMMARY | 2025-01-08 17:19 | XMS_ITS | Encounter Summary ---
Author Organization [facility] Address [address] [place] [address] Care Team Providers Care Civil Engineering Teacher Name Role Phone Zack Gandara MD Primary Care Provider [phone]- [phone] Encounter Details Date Type Department Care Team (Latest Contact Info) Description 03/31/2005 Outpatient Historical [facility] Family Medicine [address] [address] Juancarlos Obrien MD NO ADDRESS ON FILE ACUTE SINUSITIS NOS (Primary Dx); OTITIS MEDIA NOS; BIPOLAR - MOST RECENTLY MANIC NOS ([facility]CC) Social History Tobacco Use Types Packs/Day Years Used Date Smoking Tobacco: Never Assessed Comments Unknown Sex and Gender Information Value Date Recorded Sex Assigned at Not on file Legal Sex Female 4:09 AM INDUSTRIAL TRAINER Gender Identity Not on file Sexual [...] unspecified documented in this encounter Care Teams Civil Engineering Teacher Relationship Specialty Start Date End Date Zack Gandara MD PCP - General Family Practice 01/23/19 03/19/19 documented as of this encounter
--- OUTSIDE RECORDS SUMMARY | 2025-01-08 17:19 | XMS_ITS | Encounter Summary ---
Author Organization [facility] Address [address] [place] [address] Care Team Providers Care Health And Wellness Coordinator Name Role Phone Zack Gandara MD Primary Care Provider +1- [phone] Encounter Details Date Type Department Care Team (Latest Contact Info) Description 07/05/2005 Outpatient Historical [facility] Family Medicine [address] [place] [address] Juancarlos Obrien MD NO ADDRESS ON FILE Unspecified Symptom Associated with Female Genital Organs (Primary Dx) Social History Tobacco Use Types Packs/Day Years Used Date Smoking Tobacco: Never Assessed Comments Unknown Sex and Gender Information Value Date Recorded Sex Assigned at Not on file Legal Sex Female 4:09 AM GREEN BUILDING 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
--- OUTSIDE RECORDS SUMMARY | 2025-01-08 17:20 | XMS_ITS | Encounter Summary ---
Author Organization [facility] Address [address] [place] [address] Care Team Providers Care Parts Advisor Name Role Phone Zack Gandara MD Primary Care Provider Encounter Details Date Type Department Care Team (Late st Contact Info) Description 02/07/2008 Emergency [facility] Emergency Department [address] [place] [phone] Ed, Physician NO ADDRESS ON FILE Sabino Melgar MD [address] [place] [address] Social History Tobacco Use Types Packs/Day Years Used Date Smoking Tobacco: Every Day Cigarettes 1 15 Alcohol Use Standard Drinks/Week Comments No 0 (1 standard drink = 0.6 oz pur e alcohol) Comments No Sex and Gender Information Value Date Recorded Sex Assigned at Not on file Legal Sex Female 4:09 AM NEWS ASSIGNMENT EDITOR Gender Identity Not on file Sexual Orientation Not on file documented as of this encounter Plan of Treatment Not on file documented as of this encounter Visit Diagnoses Not on filedocumented in this encounter Care Teams Parts Advisor Relationship Specialty Start Date End Date Zack Gandara MD PCP - General Family Practice 01/23/19 03/19/19 documented as of this encounter
--- OUTSIDE RECORDS SUMMARY | 2025-01-08 17:20 | XMS_ITS | Encounter Summary ---
Author Organization [facility] Address [address] [place] [address] Care Team Providers Care Supervisor Stripping Name Role Phone Zack Gandara MD Primary Care Provider Encounter Details Date Type Department Care Team (Late st Contact Info) Description 03/30/2006 Emergency [facility] Emergency Department [address] [place] [phone] Harry Madera MD [address] [phone] Acute Upper Respiratory Infections of Unspecified Site (Primary Dx) Social History Tobacco Use Types Packs/Day Years Used Date Smoking Tobacco: Never Assessed Comments Unknown Sex and Gender Information Value Date Recorded Sex Assigned at Not on file Legal Sex Female 4:09 AM INSPECTOR MACHINE PARTS Gender Identity Not on file Sexual Orientation Not on file documented as of this encounter Plan of Treatment Not on file documented as of this encounter Procedures Procedure Name Priority Date/Time Associated Diagnosis Comments CBC WITH DIFFERENTIAL Routine 03/30/2006 6:37 PM INSPECTOR MACHINE PARTS BASIC METABOLIC PANEL Routine 03/30/2006 6:37 PM INSPECTOR MACHINE PARTS documented in this encounter Results * (ABNORMAL) CBC WITH DIFFERENTIAL (03/30/2006 6:37 PM INSPECTOR MACHINE PARTS) [facility] WBC 16.6(H) 4.5 - 11.0 K/ul [...] 0.2 K/ul INTERFACE SYSTEM 03/30/2006 6:37 PM INSPECTOR MACHINE PARTS Harry Madera MD HEMATOLOGY ORDERABLES Edited INTERFACE SYSTEM Refer to clinic/hospital department * (ABNORMAL) BASIC METABOLIC PANEL (03/30/2006 6:37 PM INSPECTOR MACHINE PARTS) Pathologist [facility] GLUCOSE 99 70 - 110 mg/dL [...] 295 mOsm/Kg INTERFACE SYSTEM 03/30/2006 6:37 PM INSPECTOR MACHINE PARTS Harry Madera MD CHEMISTRY ORDERABLES Edited INTERFACE SYSTEM Refer to clinic/hospital department documented in this encounter Visit Diagnoses Diagnosis Acute upper respiratory infections of unspecified site- Primary documented in this encounter Care Teams Supervisor Stripping Relationship Specialty Start Date End Date Zack Gandara MD PCP - General Family Practice 01/23/19 03/19/19 documented as of this encounter
--- OUTSIDE RECORDS SUMMARY | 2025-01-08 17:20 | XMS_ITS | Encounter Summary ---
Author Organization [facility] Address [address] [place] [address] Care Team Providers Care Tire Spotter Name Role Phone Zack Gandara MD Primary Care Provider Encounter Details Date Type Department Care Team (Late st Contact Info) Description 02/10/2008 Emergency [facility] Emergency Department [address] [place] [address] Ed, Physician NO ADDRESS ON FILE Taras Kaur, MORTGAGE SPECIALIST [address] [place] [address] Other Chronic Pain; Bipolar Disorder, [...] on file Legal Sex Female 4:09 AM ORTHOPEDIC RADIOLOGIC TECHNOLOGIST Gender Identity Not on file Sexual [...] agent documented in this encounter Care Teams Tire Spotter Relationship Specialty Start Date End Date Zack Gandara MD PCP - General Family Practice 01/23/19 03/19/19 documented as of this encounter
--- OUTSIDE RECORDS SUMMARY | 2025-01-08 17:20 | XMS_ITS | Encounter Summary ---
Author Organization [facility] Address [address] [place] [address] Care Team Providers Care Cut Off Saw Grader Name Role Phone Zack Gandara MD Primary Care Provider Encounter Details Date Type Department Care Team (Latest Contact Info) Description 08/09/2003 Outpatient Historical [facility] [address] [place] [phone] Sabino Diaz MD [address] [place] [address] LUMBAGO (Primary Dx); Skin sensation disturb Social History Tobacco Use Types Packs/Day Years Used Date Smoking Tobacco: Never Assessed Comments Unknown Sex and Gender Information Value Date Recorded Sex Assigned at Not on file Legal Sex Female 4:09 AM SOFTWARE PROGRAMMER Gender Identity Not on file Sexual Orientation Not on file documented as of this encounter Plan of Treatment Not on file documented as of this encounter Visit Diagnoses Diagnosis Lumbago- Primary Skin sensation disturb Disturbance of skin sensation documented in this encounter Care Teams Cut Off Saw Grader Relationship Specialty Start Date End Date Zack Gandara MD PCP - General Family Practice 01/23/19 03/19/19 documented as of this encounter
--- OUTSIDE RECORDS SUMMARY | 2025-01-08 17:20 | XMS_ITS | Encounter Summary ---
Author Organization [facility] Address [address] [place] [address] Care Team Providers Care Raw Juice Weigher Name Role Phone Zack Gandara MD Primary Care Provider Encounter Details Date Type Department Care Team (Latest Contact Info) Description 12/21/2000 Outpatient Historical [facility] Family Medicine [place] [address] [facility] [address] [place] [phone] Koki Birch MD NO ADDRESS ON FILE HEADACHE (Primary Dx) Social History Tobacco Use Types Packs/Day Years Used Date Smoking Tobacco: Never Assessed Comments Unknown Sex and Gender Information Value Date Recorded Sex Assigned at Not on file Legal Sex Female 4:09 AM ADVERTISING DISPATCH CLERK Gender Identity Not on file Sexual Orientation Not on file documented as of this encounter Plan of Treatment Not on file documented as of this encounter Visit Diagnoses Diagnosis Headache(784.0)- Primary Headache documented in this encounter Care Teams Raw Juice Weigher Relationship Specialty Start Date End Date Zack Gandara MD PCP - General Family Practice 01/23/19 03/19/19 documented as of this encounter
--- OUTSIDE RECORDS SUMMARY | 2025-01-08 17:20 | XMS_ITS | Encounter Summary ---
Author Organization [facility] Address [address] [place] [address] Care Team Providers Care Entry Level Paralegal Name Role Phone Zack Gandara MD Primary Care Provider Encounter Details Date Type Department Care Team (Late st Contact Info) Description 11/23/2007 Outpatient Historical [facility] [address] [place] [address] [place] [phone] Vinicio Nunez MD [address] [facility] [address] [place] [phone] Social History Tobacco Use Types Packs/Day Years Used Date Smoking Tobacco: Never Assessed Comments Unknown Sex and Gender Information Value Date Recorded Sex Assigned at Not on file Legal Sex Female 4:09 AM METAL CASKET ASSEMBLER Gender Identity Not on file Sexual Orientation Not on file documented as of this encounter Plan of Treatment Not on file documented as of this encounter Visit Diagnoses Not on filedocumented in this encounter Care Teams Entry Level Paralegal Relationship Specialty Start Date End Date Zack Gandara MD PCP - General Family Practice 01/23/19 03/19/19 documented as of this encounter
--- OUTSIDE RECORDS SUMMARY | 2025-01-08 17:20 | XMS_ITS | Encounter Summary ---
Author Organization [facility] Address [address] [place] [address] Care Team Providers Care Escalator Constructor Name Role Phone Zack Gandara MD Primary Care Provider Encounter Details Date Type Department Care Team (Late st Contact Info) Description 09/16/2003 Emergency [facility] Emergency Department [address] [place] [place] [phone] Walter Kumar MD NO ADDRESS ON FILE FOREIGN BODY GI NOS (Primary Dx) Social History Tobacco Use Types Packs/Day Years Used Date Smoking Tobacco: Never Assessed Comments Unknown Sex and Gender Information Value Date Recorded Sex Assigned at Not on file Legal Sex Female 4:09 AM CONTRACT CONSULTANT Gender Identity Not on file Sexual Orientation Not on file documented as of this encounter Plan of Treatment Not on file documented as of this encounter Visit Diagnoses Diagnosis Foreign body in digestive system, unspecified- Primary documented in this encounter Care Teams Escalator Constructor Relationship Specialty Start Date End Date Zack Gandara MD PCP - General Family Practice 01/23/19 03/19/19 documented as of this encounter
--- OUTSIDE RECORDS SUMMARY | 2025-01-08 17:20 | XMS_ITS | Encounter Summary ---
Author Organization [facility] Address [address] [place] [address] Care Team Providers Care Sheet Metal Former Name Role Phone Zack Gandara MD Primary Care Provider [phone] Encounter Details Date Type Department Care Team (Late st Contact Info) Description 01/02/2003 Emergency [facility] Emergency Department [address] [place] [phone] Walter Kumar MD NO ADDRESS ON FILE LUMBAGO (Primary Dx) Social History Tobacco Use Types Packs/Day Years Used Date Smoking Tobacco: Never Assessed Comments Unknown Sex and Gender Information Value Date Recorded Sex Assigned at Not on file Legal Sex Female 4:09 AM SENIOR PROPERTY MANAGER Gender Identity Not on file Sexual Orientation Not on file documented as of this encounter Plan of Treatment Not on file documented as of this encounter Visit Diagnoses Diagnosis Lumbago- Primary documented in this encounter Care Teams Sheet Metal Former Relationship Specialty Start Date End Date Zack Gandara MD PCP - General Family Practice 01/23/19 03/19/19 documented as of this encounter
--- OUTSIDE RECORDS SUMMARY | 2025-01-08 17:20 | XMS_ITS | Encounter Summary ---
Author Organization [facility] Address [address] [place] [address] Care Team Providers Care Culture Media Laboratory Assistant Name Role Phone Zack Gandara MD Primary Care Provider Encounter Details Date Type Department Care Team (Late st Contact Info) Description 08/30/2004 Emergency [facility] [address] [place] [address] Gian Downey MD NO ADDRESS ON FILE David Mendoza MD NO ADDRESS ON FILE VOMITING ALONE (Primary Dx); DIARRHEA NOS Social History Tobacco Use Types Packs/Day Years Used Date Smoking Tobacco: Never Assessed Comments Unknown Sex and Gender Information Value Date Recorded Sex Assigned at Not on file Legal Sex Female 4:09 AM REHABILITATION CONSTRUCTION SPECIALIST Gender Identity Not on file Sexual Orientation Not on file documented as of this encounter Plan of Treatment Not on file documented as of this encounter Visit Diagnoses Diagnosis Vomiting alone- Primary Diarrhea documented in this encounter Care Teams Culture Media Laboratory Assistant Relationship Specialty Start Date End Date Zack Gandara MD PCP - General Family Practice 01/23/19 03/19/19 documented as of this encounter
--- OUTSIDE RECORDS SUMMARY | 2025-01-08 17:20 | XMS_ITS | Encounter Summary ---
Author Organization [facility] Address [address] [place] [address] Care Team Providers Care Block Placer Name Role Phone Zack Gandara MD Primary Care Provider Encounter Details Date Type Department Care Team (Latest Contact Info) Description 02/21/2003 Outpatient Historical [facility] [address] [place] [phone] Tate Edwards MD [address] [place] [phone] LUMBAGO (Primary Dx); SCIATICA; OBESITY NOS Social History Tobacco Use Types Packs/Day Years Used Date Smoking Tobacco: Never Assessed Comments Unknown Sex and Gender Information Value Date Recorded Sex Assigned at Not on file Legal Sex Female 4:09 AM TRANSLATION DIRECTOR Gender Identity Not on file Sexual Orientation Not on file documented as of this encounter Plan of Treatment Not on file documented as of this encounter Visit Diagnoses Diagnosis Lumbago- Primary Sciatica Obesity, unspecified documented in this encounter Care Teams Block Placer Relationship Specialty Start Date End Date Zack Gandara MD PCP - General Family Practice 01/23/19 03/19/19 documented as of this encounter
--- OUTSIDE RECORDS SUMMARY | 2025-01-08 17:20 | XMS_ITS | Encounter Summary ---
Author Organization [facility] Address [address] [place] [address] Care Team Providers Care Perishable Fruit Inspector Name Role Phone Zack Gandara MD Primary Care Provider [phone]- [phone] Encounter Details Date Type Department Care Team (Late st Contact Info) Description 11/12/2007 Emergency [facility] Emergency Department [address] [place] [address] Ed, Physician NO ADDRESS ON [...] on file Legal Sex Female 4:09 AM AMMUNITION STOREKEEPER Gender Identity Not on file Sexual Orientation [...] agent documented in this encounter Care Teams Perishable Fruit Inspector Relationship Specialty Start Date End Date Zack Gandara MD PCP - General Family Practice 01/23/19 03/19/19 documented as of this encounter
--- OUTSIDE RECORDS SUMMARY | 2025-01-08 17:20 | XMS_ITS | Encounter Summary ---
Author Organization [facility] Address [address] [place] [address] Care Team Providers Care Pot Liner Name Role Phone Zack Gandara MD Primary Care Provider Encounter Details Date Type Department Care Team (Latest Contact Info) Description 02/21/2003 Outpatient Historical [facility] [address] [place] [phone] Tate Edwards MD [address] [place] [phone] OBESITY NOS (Primary Dx) Social History Tobacco Use Types Packs/Day Years Used Date Smoking Tobacco: Never Assessed Comments Unknown Sex and Gender Information Value Date Recorded Sex Assigned at Not on file Legal Sex Female 4:09 AM MUTUAL FUND SALES AGENT Gender Identity Not on file Sexual Orientation Not on file documented as of this encounter Plan of Treatment Not on file documented as of this encounter Visit Diagnoses Diagnosis Obesity, unspecified- Primary documented in this encounter Care Teams Pot Liner Relationship Specialty Start Date End Date Zack Gandara MD PCP - General Family Practice 01/23/19 03/19/19 documented as of this encounter
--- OUTSIDE RECORDS SUMMARY | 2025-01-08 17:20 | XMS_ITS | Encounter Summary ---
Author Organization [facility] Address [address] [place] [address] Care Team Providers Care Radiographer Name Role Phone Zack Gandara MD Primary Care Provider Encounter Details Date Type Department Care Team (Late st Contact Info) Description 01/09/2008 Emergency [facility] Emergency Department [address] [place] [address] Ed, Physician NO ADDRESS ON FILE Michelle Hanna MD [address] [place] [address] Social History Tobacco Use Types Packs/Day Years Used Date Smoking Tobacco: Every Day Cigarettes 1 15 Alcohol Use Standard Drinks/Week Comments No 0 (1 standard drink = 0.6 oz pur e alcohol) Comments No Sex and Gender Information Value Date Recorded Sex Assigned at Not on file Legal Sex Female 4:09 AM DEBURRER Gender Identity Not on file Sexual Orientation Not on file documented as of this encounter Plan of Treatment Not on file documented as of this encounter Visit Diagnoses Not on filedocumented in this encounter Care Teams Radiographer Relationship Specialty Start Date End Date Zack Gandara MD PCP - General Family Practice 01/23/19 03/19/19 documented as of this encounter
--- OUTSIDE RECORDS SUMMARY | 2025-01-08 17:20 | XMS_ITS | Encounter Summary ---
Author Organization [facility] Address [address] [place] [address] Care Team Providers Care Relationship Associate Name Role Phone Zack Gandara MD Primary Care Provider [phone] Encounter Details Date Type Department Care Team (Late st Contact Info) Description 12/16/2003 Emergency [facility] Emergency Department [address] [place] [phone] Rosaura Freeman, PLATE CUTTER NO ADDRESS ON FILE LUMBAGO (Primary Dx) Social History Tobacco Use Types Packs/Day Years Used Date Smoking Tobacco: Never Assessed Comments Unknown Sex and Gender Information Value Date Recorded Sex Assigned at Not on file Legal Sex Female 4:09 AM WASHERY ENGINEER Gender Identity Not on file Sexual Orientation Not on file documented as of this encounter Plan of Treatment Not on file documented as of this encounter Visit Diagnoses Diagnosis Lumbago- Primary documented in this encounter Care Teams Relationship Associate Relationship Specialty Start Date End Date Zack Gandara MD PCP - General Family Practice 01/23/19 03/19/19 documented as of this encounter"
--- OUTSIDE RECORDS SUMMARY | 2025-01-08 17:20 | XMS_ITS | Encounter Summary ---
Author Organization [facility] Address [address] [place] [address] Care Team Providers Care News Operations Manager Name Role Phone Zack Gandara MD Primary Care Provider Encounter Details Date Type Department Care Team (Late st Contact Info) Description 10/18/2007 Outpatient Historical [facility] [address] [place] [address] AMBULANCE, [facility] Social History Tobacco Use Types Packs/Day Years Used Date Smoking Tobacco: Never Assessed Comments Unknown Sex and Gender Information Value Date Recorded Sex Assigned at Not on file Legal Sex Female 4:09 AM TRANSMISSION REPAIRER Gender Identity Not on file Sexual Orientation Not on file documented as of this encounter Plan of Treatment Not on file documented as of this encounter Visit Diagnoses Not on filedocumented in this encounter Care Teams News Operations Manager Relationship Specialty Start Date End Date Zack Gandara MD PCP - General Family Practice 01/23/19 03/19/19 documented as of this encounter
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
--- OUTSIDE RECORDS SUMMARY | 2025-01-08 17:20 | XMS_ITS | Encounter Summary ---
Author Organization [facility] Address [address] [place] [address] Care Team Providers Care Rapid Transit Operator Name Role Phone Zack Gandara MD Primary Care Provider [phone] Encounter Details Date Type Department Care Team (Latest Contact Info) Description 10/20/2005 Outpatient Historical [facility] [address] [address] Juancarlos Obrien MD NO ADDRESS ON FILE Acute Sinusitis, Unspecified (Primary Dx); Lumbago Social History Tobacco Use Types Packs/Day Years Used Date Smoking Tobacco: Never Assessed Comments Unknown Sex and Gender Information Value Date Recorded Sex Assigned at Not on file 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
--- OUTSIDE RECORDS SUMMARY | 2025-01-08 17:20 | XMS_ITS | Encounter Summary ---
Author Organization [facility] Address [address] [place] [address] Care Team Providers Care Transit Manager Name Role Phone Zack Gandara MD Primary Care Provider Encounter Details Date Type Department Care Team (Late st Contact Info) Description 01/12/2008 Emergency [facility] Emergency Department [address] [place] [address] Ed, Physician NO ADDRESS ON FILE Alba Salmon MD [address] [place] [phone] Social History Tobacco Use Types Packs/Day Years Used Date Smoking Tobacco: Every Day Cigarettes 1 15 Alcohol Use Standard Drinks/Week Comments No 0 (1 standard drink = 0.6 oz pur e alcohol) Comments No Sex and Gender Information Value Date Recorded Sex Assigned at Not on file Legal Sex Female 4:09 AM TROLLEY CAR OVERHAULER Gender Identity Not on file Sexual Orientation Not on file documented as of this encounter Plan of Treatment Not on file documented as of this encounter Procedures Procedure Name Priority Date/Time Associated Diagnosis Comments XR HIP 2 OR 3 VIEWS RT Routine 8 5:29 PM TROLLEY CAR OVERHAULER XR KNEE 1 OR 2 VW RIGHT Routine 01/12/2008 3:39 PM TROLLEY CAR OVERHAULER BASIC METABOLIC PANEL PLUS Stat 01/12/2008 3:13 PM TROLLEY CAR OVERHAULER CBC WITH DIFFERENTIAL Stat 01/12/2008 3:13 PM TROLLEY CAR OVERHAULER SEDIMENTATION RATE Stat 01/12/2008 3: 13 PM TROLLEY CAR OVERHAULER C-REACTIVE PROTEIN Stat 01/12/2008 3: 13 PM TROLLEY CAR OVERHAULER BASIC METABOLIC PANEL Stat 01/12/2008 3:13 PM TROLLEY CAR OVERHAULER URINALYSIS W/REFLEX MICROSCOPIC Stat 01/12/2008 3:00 PM TROLLEY CAR OVERHAULER documented in this encounter Results * XR HIP 2+ VW RIGHT (01/12/2008 5:29 PM TROLLEY CAR OVERHAULER) Anatomical Region Laterality Modality Lower Extremity Right Other 01/12/2008 5:29 PM TROLLEY CAR OVERHAULER Narrative 01/12/2008 5:39 PM TROLLEY CAR OVERHAULER Two views of the right hip are [...] OR 2 VW RIGHT (01/12/2008 3:39 PM TROLLEY CAR OVERHAULER) Anatomical Region Laterality Modality Lower Extremity Other 01/12/2008 3:39 PM TROLLEY CAR OVERHAULER Narrative 01/12/2008 5:12 PM TROLLEY CAR OVERHAULER Three views of the right knee are [...] BASIC METABOLIC PANEL PLUS (01/12/2008 3:13 PM TROLLEY CAR OVERHAULER) AST 16 8 - 33 U/L [facility] ALBUMIN 4.1 3.5 - 5.0 g/dL [facility] ALT 11 4 - 36 IU/L [facility] ALKALINE PHOSPHATASE 98 25 - 100 U/L [facility] BILIRUBIN TOTAL 0.1(L) 0.3 - 1.2 mg/dL [facility] TOTAL PROTEIN 7.1 6.3 - 8.2 g/dL [facility] Blood specimen (specimen) 01/12/2008 3:13 PM TROLLEY CAR OVERHAULER 01/12/2008 3:17 PM TROLLEY CAR OVERHAULER Tim Kelsey MD CHEMISTRY ORDERABLES Chichi l Result Performing Organization Address [facility] Phone Number INTERFACE SYSTEM Refer to clinic/hospital department [facility] CLIA# [id number] [address] [place] [address] * C-REACTIVE PROTEIN (01/12/2008 3:13 PM TROLLEY CAR OVERHAULER) CRP 0.38 0.00 - 1.00 mg/dL [facility] Blood specimen (specimen) 01/12/2008 3:13 PM TROLLEY CAR OVERHAULER 01/12/2008 3:17 PM TROLLEY CAR OVERHAULER Result [facility] Tim Kelsey MD CHEMISTRY ORDERABLES Edit ed Performing Organization Address [facility] Phone Number INTERFACE SYSTEM Refer to clinic/hospital department [facility] CLIA# [id number] [address] [place] [address] * (ABNORMAL) SEDIMENTATION RATE (01/12/2008 3:13 PM TROLLEY CAR OVERHAULER) ESR (SEDIMENTATION RATE) 37(H) 0 - 22 mm/hr [facility] Blood specimen (specimen) 01/12/2008 3:13 PM TROLLEY CAR OVERHAULER 01/12/2008 3:17 PM TROLLEY CAR OVERHAULER Tim Kelsey MD HEMATOLOGY ORDERABLES Fin al Result Performing Organization Address [facility] Phone Number INTERFACE SYSTEM Refer to clinic/hospital department [facility] CLIA# [id number] [address] [place] [address] * (ABNORMAL) BASIC METABOLIC PANEL (01/12/2008 3:13 PM TROLLEY CAR OVERHAULER) Pathologist [facility] CO2 24 22 - 32 mmol/l [facility] OSMOLALITY, CALCULATED 288 275 - 295 mOsm/Kg [facility] POTASSIUM 4.0 3.5 - 5.0 mEq/L [facility] CREATININE 0.7 0.7 - 1.2 mg/dL [facility] CALCIUM 9.4 8.4 - 10.5 mg/dL [facility] GLUCOSE 98 70 - 110 mg/dL [facility] Comment: Slight Lipemia. CHLORIDE 111(H) 95 - 110 mEq/L [facility] SODIUM 140 136 - 145 mEq/L [facility] ANION GAP 9 9 - 20 mEq/L [facility] BUN 13 7 - 17 mg/dL [facility] Blood specimen (specimen) 01/12/2008 3:13 PM TROLLEY CAR OVERHAULER 01/12/2008 3:17 PM TROLLEY CAR OVERHAULER us Tim Kelsey MD CHEMISTRY ORDERABLES Chichi conley Result INTERFACE SYSTEM Refer to clinic/hospital department [facility] CLIA# [id number] [address] [place] [address] * (ABNORMAL) CBC WITH DIFFERENTIAL (01/12/2008 3:13 PM TROLLEY CAR OVERHAULER) Pathologist [facility] BASOPHILS ABSOLUTE 0.1 0.0 - 0.2 K/ul [facility] HEMOGLOBIN 13.2 12.0 - 16.0 g/dL [facility] MONOCYTES 7.1 2.0 - 10.0 % [facility] RDW 13.1 11.0 - 14.5 % [facility] MONOCYTE ABSOLUTE 0.7(H) 0.1 - 0.6 K/ul [facility] WBC 10.2 4.5 - 11.0 K/ul [facility] NEUTROPHILS 50.0 42.2 - 75.2 % [facility] MCH 30.8 27.0 - 34.0 pg [facility] NEUTROPHIL ABSOLUTE 5.1 2.0 - 8.0 K/ul [facility] HEMATOCRIT 39.1 36.0 - 46.0 % [facility] PLATELETS 171 140 - 440 K/ul [facility] EOSINOPHIL ABSOLUTE 0.5 0.0 - 0.7 K/ul [facility] EOSINOPHILS 4.7 0.0 - 7.0 % [facility] RBC 4.29 4.20 - 5.40 Mil/ul [facility] MCHC 33.8 30.0 - 35.0 g/dL [facility] LYMPHOCYTE ABSOLUTE 3.8 1.2 - 4.0 K/ul [facility] LYMPHOCYTES 37.7 24.0 - 44.0 % [facility] MCV 91.1 84.0 - 103.0 Fl [facility] BASOPHILS 0.5 0.0 - 1.0 % [facility] MPV 10.3 8.9 - 12.8 Fl [facility] Blood specimen (specimen) 01/12/2008 3:13 PM TROLLEY CAR OVERHAULER 01/12/2008 3:17 PM TROLLEY CAR OVERHAULER Tim Kelsey MD HEMATOLOGY ORDERABLES Fin al Result Performing Organization Address City/State/[facility] Co de Phone Number INTERFACE SYSTEM Refer to clinic/hospital department [facility]# [id number] [address] [place] [address] * (ABNORMAL) URINALYSIS (01/12/2008 3:00 PM TROLLEY CAR OVERHAULER) NITRITE UA NEGATIVE NEGATIVE [facility] UROBILINOGEN UA 0.2 0.2 [facility] CLARITY UA Clear Clear [facility] SPECIFIC GRAVITY UA >=1.030(A) <=1.005 [facility] GLUCOSE UA NEGATIVE NEGATIVE [facility] PH UA 5.5 5.0 - 9.0 [facility] BILIRUBIN UA NEGATIVE NEGATIVE [facility] LEUKOCYTE ESTERASE UA NEGATIVE NEGATIVE [facility] KETONES UA NEGATIVE NEGATIVE [facility] MICRO EXAM No No [facility] COLOR UA Yellow Straw [facility] PROTEIN UA NEGATIVE NEGATIVE [facility] BLOOD UA NEGATIVE NEGATIVE [facility] Urine specimen (specimen) 01/12/2008 3:00 PM TROLLEY CAR OVERHAULER 01/12/2008 3:00 PM TROLLEY CAR OVERHAULER us Tim Kelsey MD URINE ORDERABLES Final Re sult INTERFACE SYSTEM Refer to clinic/hospital department [facility] CLIA# [id number] [facility] [place] [address] documented in this encounter Visit Diagnoses Not on filedocumented in this encounter Care Teams Transit Manager Relationship Specialty Start Date End Date Zack Gandara MD PCP - General Family Practice 01/23/19 03/19/19 documented as of this encounter
--- OUTSIDE RECORDS SUMMARY | 2025-01-08 17:20 | XMS_ITS | Encounter Summary ---
Author Organization [facility] Address [address] [place] [address] Care Team Providers Care Soap Worker Name Role Phone Zack Gandara MD Primary Care Provider Encounter Details Date Type Department Care Team (Latest Contact Info) Description 04/30/2008 Ancillary Orders [facility] MRI [address] [place] [phone] Jacinta Faria, FRINGE WEAVER [address] 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
--- OUTSIDE RECORDS SUMMARY | 2025-01-08 17:20 | XMS_ITS | Encounter Summary ---
Author Organization [facility] Address [address] 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
--- OUTSIDE RECORDS SUMMARY | 2025-01-08 17:20 | XMS_ITS | Encounter Summary ---
Author Organization [facility] Address [address] [place] [address] Care Team Providers Care Global Security Architect Name Role Phone Zack Gandara MD Primary Care Provider Encounter Details Date Type Department Care Team (Late st Contact Info) Description 12/20/2004 Emergency [facility] [address] 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
--- OUTSIDE RECORDS SUMMARY | 2025-01-08 17:20 | XMS_ITS | Encounter Summary ---
Author Organization [facility] Address [address] [place] [address] Care Team Providers Care Business Continuity Planner Name Role Phone Zack Gandara MD Primary Care Provider Encounter Details Date Type Department Care Team (Late st Contact Info) Description 2007 Emergency [facility] Emergency Department [address] 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 Date Signed: 11/08/07 Taras Kaur ANDROID UI DEVELOPER DIAGNOSTIC IMAGING ORDERABLES Final Result documented in this encounter Visit Diagnoses Diagnosis Other chronic pain Lumbago Bipolar disorder, unspecified ([facility]) Bipolar disorder, unspecified Tobacco use disorder [...] places documented in this encounter Care Teams Business Continuity Planner Relationship Specialty Start Date End Date Zack Gandara MD PCP - General Family Practice 01/23/19 03/19/19 documented as of this encounter
--- OUTSIDE RECORDS SUMMARY | 2025-01-08 17:20 | XMS_ITS | Encounter Summary ---
Author Organization [facility] Address [address] [place] [address] Care Team Providers Care Gem Carver Name Role Phone Zack Gandara MD Primary Care Provider Encounter Details Date Type Department Care Team (Late st Contact Info) Description 05/03/2008 Ancillary Orders [facility] MRI [address] 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 cgf: - uploaded from [employer] 05/27/2008 1:31 PM CDT Exam: MRI LUMBAR [...] or neural impingement. cgf: - uploaded from [employer] us Sabino Troncoso MD MR ORDERABLES Final Res ult documented in this encounter Visit Diagnoses Diagnosis Lumbago Lumbago documented in this encounter Care Teams Gem Carver Relationship Specialty Start Date End Date Zack Gandara MD PCP - General Family Practice 01/23/19 03/19/19 documented as of this encounter
--- OUTSIDE RECORDS SUMMARY | 2025-01-08 17:20 | XMS_ITS | Encounter Summary ---
Author Organization [facility] Address [address] [place] [address] Care Team Providers Care Tag Machine Operator Name Role Phone Zack Gandara MD Primary Care Provider [phone] Encounter Details Date Type Department Care Team (Late st Contact Info) Description 12/14/2007 Emergency [facility] Emergency Department [address] 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
--- OUTSIDE RECORDS SUMMARY | 2025-01-08 17:20 | XMS_ITS | Encounter Summary ---
Author Organization [facility] Address [address] [place] [address] Care Team Providers Care Rug Cleaner Hand Name Role Phone Zack Gandara MD Primary Care Provider Encounter Details Date Type Department Care Team (Late st Contact Info) Description 12/26/2003 Emergency [facility] Emergency Department [address] 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
--- OUTSIDE RECORDS SUMMARY | 2025-01-08 17:20 | XMS_ITS | Encounter Summary ---
Author Organization [facility] Address [address] [place] [address] Care Team Providers Care Bookkeeper Name Role Phone Zack Gandara MD Primary Care Provider Encounter Details Date Type Department Care Team (Late st Contact Info) Description 10/07/2007 Emergency [facility] Emergency Department [address] [place] [phone] Ed, Physician NO ADDRESS ON FILE Sabino [...] on file Legal Sex Female 4:09 AM ELEVATOR SUPERVISOR Gender Identity Not on file Sexual [...] CARDIAC ENZYMES (10/07/2007 2:00 PM CDT) [facility] CKMB 0.3 0.0 - 5.0 ng/mL [facility] TROPONIN I <0.1 0.0 - 1.3 ng/mL [facility] Blood specimen (specimen) 10/07/2007 2:00 PM CDT 10/07/2007 2:06 PM CDT Sabino Lai Jr., DO CHEMISTRY ORDERABLES Chichi conley Result INTERFACE SYSTEM Refer to clinic/hospital department [facility] CLIA# [id number] [address] [place] [address] * (ABNORMAL) CBC WITH DIFFERENTIAL (10/07/2007 2:00 PM CDT) [facility] LYMPHOCYTE ABSOLUTE 3.9 1.2 - 4.0 K/ul [facility] MCV 93.3 84.0 - 103.0 Fl [facility] MPV 10.1 8.9 - 12.8 Fl [facility] BASOPHILS ABSOLUTE 0.0 0.0 - 0.2 K/ul [facility] BASOPHILS 0.3 0.0 - 1.0 % [facility] HEMOGLOBIN 13.2 12.0 - 16.0 g/dL [facility] RDW 13.5 11.0 - 14.5 % [facility] MONOCYTE ABSOLUTE 1.0(H) 0.1 - 0.6 K/ul [facility] MONOCYTES 10.0 2.0 - 10.0 % [facility] WBC 10.5 4.5 - 11.0 K/ul [facility] MCH 30.3 27.0 - 34.0 pg [facility] NEUTROPHIL ABSOLUTE 5.1 2.0 - 8.0 K/ul [facility] NEUTROPHILS 48.7 42.2 - 75.2 % [facility] HEMATOCRIT 40.6 36.0 - 46.0 % [facility] EOSINOPHILS 4.0 0.0 - 7.0 % [facility] PLATELETS 177 140 - 440 K/ul [facility] EOSINOPHIL ABSOLUTE 0.4 0.0 - 0.7 K/ul [facility] RBC 4.35 4.20 - 5.40 Mil/ul [facility] MCHC 32.5 30.0 - 35.0 g/dL [facility] LYMPHOCYTES 37.0 24.0 - 44.0 % [facility] Blood specimen (specimen) 10/07/2007 2:00 PM CDT 10/07/2007 2:06 PM CDT us Sabino Lai Jr., DO HEMATOLOGY ORDERABLES Fin al Result Performing Organization Address City/State/[facility] Co de Phone Number INTERFACE SYSTEM Refer to clinic/hospital department [facility] CLIA# [id number] [address] [place] [address] * D-DIMER (10/07/2007 2:00 PM CDT) [facility] D-DIMER QUANT 0.5 0.0 - 0.5 mcg/mL [facility] Comment: Testing performed using the STA [...] ORDERABLES Fin al Result Performing Organization Address [facility] Phone Number INTERFACE SYSTEM Refer to clinic/hospital department [facility] CLIA# [id number] [address] [place] [address] * (ABNORMAL) BASIC METABOLIC PANEL (10/07/2007 2:00 PM CDT) BUN 10 7 - 17 mg/dL [facility] CO2 27 22 - 32 mmol/l [facility] POTASSIUM 3.9 3.5 - 5.0 mEq/L [facility] OSMOLALITY, CALCULATED 287 275 - 295 mOsm/Kg [facility] CREATININE 0.6(L) 0.7 - 1.2 mg/dL [facility] CALCIUM 9.6 8.4 - 10.5 mg/dL [facility] GLUCOSE 104 70 - 110 mg/dL [facility] CHLORIDE 109 95 - 110 mEq/L [facility] ANION GAP 8(L) 9 - 20 mEq/L [facility] SODIUM 140 136 - 145 mEq/L [facility] Blood specimen (specimen) 10/07/2007 2:00 PM CDT 10/07/2007 2:06 PM CDT Sabino Lai Jr., DO CHEMISTRY ORDERABLES Chichi l Result Performing Organization Address [facility] Phone Number INTERFACE SYSTEM Refer to clinic/hospital department [facility] CLIA# [id number] [facility] [place] [address] * XR CHEST PA AND LATERAL (10/07/2007 [...] By: Michael Gooden M.D. Electronically Signed By: Micahel Gooden M.D. Date Signed: 10/07/07 GRB Sabino [...] agent documented in this encounter Care Teams Bookkeeper Relationship Specialty Start Date End Date Zack Gandara MD PCP - General Family Practice 01/23/19 03/19/19 documented as of this encounter
--- OUTSIDE RECORDS SUMMARY | 2025-01-08 17:20 | XMS_ITS | Encounter Summary ---
Author Organization [facility] Address [address] Hurst: Epic [place] [address] Care Team Providers Care Highway Administrative Engineer Name Role Phone Zack Gandara MD Primary Care Provider Encounter Details Date Type Department Care Team (Latest Contact Info) Description 03/25/1999 [place] [address] [address] Social History Tobacco Use Types Packs/Day Years Used Date Smoking Tobacco: Never Assessed Comments Unknown Sex and Gender Information Value Date Recorded Sex Assigned at Not on file Legal Sex Female 4:09 AM RETORT FEEDER GROUND BONE Gender Identity Not on file Sexual Orientation Not on file documented as of this encounter Plan of Treatment Not on file documented as of this encounter Visit Diagnoses Not on filedocumented in this encounter Care Teams Highway Administrative Engineer Relationship Specialty Start Date End Date Zack Gandara MD PCP - General Family Practice 01/23/19 03/19/19 documented as of this encounter
--- OUTSIDE RECORDS SUMMARY | 2025-01-08 17:20 | XMS_ITS | Encounter Summary ---
Author Organization [facility] Address [address] [place] [address] Care Team Providers Care Director Digital Advertising Name Role Phone Zack Gandara MD Primary Care Provider Encounter Details Date Type Department Care Team (Latest Contact Info) Description 10/14/2004 Outpatient Historical [facility] Imaging Services-[facility] [place] [address] [place] [address] Moisés Nowak DO [address] [place] [address] LUMBAGO (Primary Dx) Social History Tobacco Use Types Packs/Day Years Used Date Smoking Tobacco: Never Assessed Comments Unknown Sex and Gender Information Value Date Recorded Sex Assigned at Not on file Legal Sex Female 4:09 AM ECONOMIC DEVELOPER Gender Identity Not on file Sexual Orientation Not on file documented as of this encounter Plan of Treatment Not on file documented as of this encounter Visit Diagnoses Diagnosis Lumbago- Primary documented in this encounter Care Teams Director Digital Advertising Relationship Specialty Start Date End Date Zack Gandara MD PCP - General Family Practice 01/23/19 03/19/19 documented as of this encounter
--- OUTSIDE RECORDS SUMMARY | 2025-01-08 17:20 | XMS_ITS | Encounter Summary ---
Author Organization [facility] Address [address] [place] [address] Care Team Providers Care Driller'S Assistant Name Role Phone Zack Gandara MD Primary Care Provider [phone] Encounter Details Date Type Department Care Team (Latest Contact Info) Description 01/02/2004 Outpatient Historical [facility] Internal Medicine and Pediatrics-[address] [place] [address] Karina Garibay MD NO ADDRESS ON FILE SCIATICA (Primary Dx); MORBID OBESITY (CMS/HCC); CLASS MIGRAIN W/O MENTN INTRACTABLE; HYPERTENSION NOS Social History Tobacco Use Types Packs/Day Years Used Date Smoking Tobacco: Never Assessed Comments Unknown Sex and Gender Information Value Date Recorded Sex Assigned at Not on file Legal Sex Female 4:09 AM CARPET BINDER Gender Identity Not on file Sexual Orientation Not on file documented as of this encounter Plan of Treatment Not on file documented as of this encounter Visit Diagnoses Diagnosis Sciatica- Primary Morbid obesity (CMS/HCC) Morbid obesity Migraine with aura, without mention of intractable migraine without mention of status migrainosus Unspecified essential hypertension documented in this encounter Care Teams Driller'S Assistant Relationship Specialty Start Date End Date Zack Gandara MD PCP - General Family Practice 01/23/19 03/19/19 documented as of this encounter
--- OUTSIDE RECORDS SUMMARY | 2025-01-08 17:20 | XMS_ITS | Encounter Summary ---
Author Organization [facility] Address [address] [place] [address] Care Team Providers Care Vending Service Technician Name Role Phone Zack Gandara MD Primary Care Provider Encounter Details Date Type Department Care Team (Late st Contact Info) Description 10/07/2003 Emergency [facility] Emergency Department [address] [place] [phone] Michelle Hanna MD [address] [place] [phone] LUMBAGO (Primary Dx) Social History Tobacco Use Types Packs/Day Years Used Date Smoking Tobacco: Never Assessed Comments Unknown Sex and Gender Information Value Date Recorded Sex Assigned at Not on file Legal Sex Female 4:09 AM SANDER AND POLISHER Gender Identity Not on file Sexual Orientation Not on file documented as of this encounter Plan of Treatment Not on file documented as of this encounter Visit Diagnoses Diagnosis Lumbago- Primary documented in this encounter Care Teams Vending Service Technician Relationship Specialty Start Date End Date Zack Gandara MD PCP - General Family Practice 01/23/19 03/19/19 documented as of this encounter
--- OUTSIDE RECORDS SUMMARY | 2025-01-08 17:20 | XMS_ITS | Encounter Summary ---
Author Organization [facility] Address [address] [place] [address] Care Team Providers Care Machine Engraver Name Role Phone Zack Gandara MD Primary Care Provider Encounter Details Date Type Department Care Team (Late st Contact Info) Description 04/24/2006 Outpatient Historical [facility] [address] [place] [address] AMBULANCE, [facility] Unspecified Backache (Primary Dx) Social History Tobacco Use Types Packs/Day Years Used Date Smoking Tobacco: Never Assessed Comments Unknown Sex and Gender Information Value Date Recorded Sex Assigned at Not on file Legal Sex Female 4:09 AM DRILL PRESS HAND Gender Identity Not on file Sexual Orientation Not on file documented as of this encounter Plan of Treatment Not on file documented as of this encounter Visit Diagnoses Diagnosis Backache, unspecified- Primary documented in this encounter Care Teams Machine Engraver Relationship Specialty Start Date End Date Zack Gandara MD PCP - General Family Practice 01/23/19 03/19/19 documented as of this encounter
--- OUTSIDE RECORDS SUMMARY | 2025-01-08 17:20 | XMS_ITS | Encounter Summary ---
Author Organization [facility] Address [address] [place] [address] Care Team Providers Care Stable Cleaner Name Role Phone Zack Gandara MD Primary Care Provider Encounter Details Date Type Department Care Team (Late st Contact Info) Description 06/05/2004 Outpatient Historical [facility] Medicine- [facility] [address] [place] [address] David Mendoza MD NO ADDRESS ON FILE MIGRAINE NOS W/O MENTN INTRACTABLE (Primary Dx); DRUG ABUSE NEC-CONTIN Social History Tobacco Use Types Packs/Day Years Used Date Smoking Tobacco: Never Assessed Comments Unknown Sex and Gender Information Value Date Recorded Sex Assigned at Not on file Legal Sex Female 4:09 AM PRESS BRAKE OPERATOR Gender Identity Not on file Sexual Orientation Not on file documented as of this encounter Plan of Treatment Not on file documented as of this encounter Visit Diagnoses Diagnosis Migraine, unspecified, without mention of intractable migraine without mention of status migrainosus- Primary Other, mixed, or unspecified nondependent drug abuse, continuous documented in this encounter Care Teams Stable Cleaner Relationship Specialty Start Date End Date Zack Gandara MD PCP - General Family Practice 01/23/19 03/19/19 documented as of this encounter
--- OUTSIDE RECORDS SUMMARY | 2025-01-08 17:20 | XMS_ITS | Encounter Summary ---
Author Organization [facility] Address [address] [place] [address] Care Team Providers Care Learning Center Instructor Name Role Phone Zack Gandara MD Primary Care Provider Encounter Details Date Type Department Care Team (Late st Contact Info) Description 02/23/[address] [facility] Emergency Department [address] [place] [phone] Ed, Physician NO ADDRESS ON FILE Geovany [...] on file Legal Sex Female 4:09 AM TUBE SIZER AND CUTTER OPERATOR Gender Identity Not on file Sexual Orientation Not on file documented as of this encounter Plan of Treatment Not on file documented as of this encounter Procedures Procedure Name Priority Date/Time Associated Diagnosis Comments XR LUMBAR SPINE 2 OR 3 VW Routine 02/23/2008 5:48 PM TUBE SIZER AND CUTTER OPERATOR XR CERVICAL SPINE 2 OR 3 VIEWS Routine 02/23/2008 5:48 PM TUBE SIZER AND CUTTER OPERATOR documented in this encounter Results * XR LUMBAR SPINE 2 OR 3 VW (02/23/2008 5:48 PM TUBE SIZER AND CUTTER OPERATOR) Anatomical Region Laterality Modality Spine Other 02/23/2008 5:48 PM TUBE SIZER AND CUTTER OPERATOR Narrative 02/24/2008 2:31 PM TUBE SIZER AND CUTTER OPERATOR Exam: Spine - Lumbar Date/Time of Exam: [...] 2 OR 3 VW (02/23/2008 5:48 PM TUBE SIZER AND CUTTER OPERATOR) Anatomical Region Laterality Modality Spine Other 02/23/2008 5:48 PM TUBE SIZER AND CUTTER OPERATOR Narrative 02/24/2008 2:31 PM TUBE SIZER AND CUTTER OPERATOR Exam: Spine - Cervical Limited Date/Time of [...] on filedocumented in this encounter Care Teams Learning Center Instructor Relationship Specialty Start Date End Date Zack Gandara MD PCP - General Family Practice 01/23/19 03/19/19 documented as of this encounter
--- OUTSIDE RECORDS SUMMARY | 2025-01-08 17:20 | XMS_ITS | Encounter Summary ---
Author Organization [facility] Address [address] [place] [address] Care Team Providers Care Trimmer Sawyer Name Role Phone Zack Gandara MD Primary Care Provider [phone] Encounter Details Date Type Department Care Team (Late st Contact Info) Description 07/24/2003 Emergency [facility] Emergency Department [address] [place] [phone] Charley Downs FNP NO ADDRESS ON FILE LUMBAGO (Primary Dx) Social History Tobacco Use Types Packs/Day Years Used Date Smoking Tobacco: Never Assessed Comments Unknown Sex and Gender Information Value Date Recorded Sex Assigned at Not on file Legal Sex Female 4:09 AM FEED INSPECTION SUPERVISOR Gender Identity Not on file Sexual Orientation Not on file documented as of this encounter Plan of Treatment Not on file documented as of this encounter Visit Diagnoses Diagnosis Lumbago- Primary documented in this encounter Care Teams Trimmer Sawyer Relationship Specialty Start Date End Date Zack Gandara MD PCP - General Family Practice 01/23/19 03/19/19 documented as of this encounter
--- OUTSIDE RECORDS SUMMARY | 2025-01-08 17:20 | XMS_ITS | Encounter Summary ---
Author Organization [facility] Address [address] [place] [address] Care Team Providers Care Human Resources Clerk Name Role Phone Zack Gandara MD Primary Care Provider Encounter Details Date Type Department Care Team (Latest Contact Info) Description 07/05/2007 Outpatient Historical [facility] Endoscopy [place] [address] [address] [place] [phone] Kirill Kinney MD [address] [facility] [address] [place] [phone] Irritable Bowel Syndrome; Unspecified Sleep Apnea; Tobacco Use Disorder Social History Tobacco Use Types Packs/Day Years Used Date Smoking Tobacco: Never Assessed Comments Unknown Sex and Gender Information Value Date Recorded Sex Assigned at Not on file Legal Sex Female 4:09 AM LITHOGRAPHIC ARTIST Gender Identity Not on file Sexual Orientation Not on file documented as of this encounter Plan of Treatment Not on file documented as of this encounter Procedures Procedure Name Priority Date/Time Associated Diagnosis Comments PATHOLOGY Routine 07/06/2007 8:29 AM CDT documented in this encounter Results * PATHOLOGY (07/06/2007 8:29 AM CDT) PATHOLOGY/CYT OLOGY REPORT [facility] Anatomic Pathology Dept [address] [facility] [address] Patient: CYNDI BACA Accn No: [id number] Collected: 07/06/2007 8:29:00 AM SURGICAL PATHOLOGY FINAL [...] disorder documented in this encounter Care Teams Human Resources Clerk Relationship Specialty Start Date End Date Zack Gandara MD PCP - General Family Practice 01/23/19 03/19/19 documented as of this encounter
--- OUTSIDE RECORDS SUMMARY | 2025-01-08 17:20 | XMS_ITS | Encounter Summary ---
Author Organization [facility] Address [address] [place] [address] Care Team Providers Care Plastic Cnc Machine Operator Name Role Phone Zack Gandara MD Primary Care Provider [phone] Encounter Details Date Type Department Care Team (Late st Contact Info) Description 07/21/2007 Emergency [facility] Emergency Department [address] [place] [address] Ed, Physician NO ADDRESS ON FILE Taras Kaur, TECHNICAL DESIGNER [address] [place] [address] Lumbar Sprain and Strain; Unspecified [...] on file Legal Sex Female 4:09 AM DEEP SUBMERGENCE VEHICLE CREWMEMBER Gender Identity Not on file Sexual Orientation [...] Wilkerson M.D., Ph.D. Date Signed: 07/22/07 [facility] Final Result [...] Ph.D. Date Signed: 07/22/07 JAW Taras Kaur [facility] DIAGNOSTIC IMAGING ORDERABLES Final Result * [...] M.D., Ph.D. Date Signed: 07/22/07 Taras Kaur [facility] DIAGNOSTIC IMAGING ORDERABLES Final Result * [...] M.D., Ph.D. Date Signed: 07/22/07 Taras Kaur TECHNICAL DESIGNER DIAGNOSTIC IMAGING ORDERABLES Final Result documented in [...] home documented in this encounter Care Teams Plastic Cnc Machine Operator Relationship Specialty Start Date End Date Zack Gandara MD PCP - General Family Practice 01/23/19 03/19/19 documented as of this encounter
--- OUTSIDE RECORDS SUMMARY | 2025-01-08 17:20 | XMS_ITS | Encounter Summary ---
Author Organization [facility] Address [address] [place] [address] Care Team Providers Care Test Engine Mechanic Name Role Phone Zack Gandara MD Primary Care Provider [phone] Encounter Details Date Type Department Care Team (Late st Contact Info) Description 09/02/2005 Emergency [facility] [address] [place] [address] [place] [address] Juancarlos Obrien MD NO ADDRESS ON FILE Lumbago (Primary Dx) Social History Tobacco Use Types Packs/Day Years Used Date Smoking Tobacco: Never Assessed Comments Unknown Sex and Gender Information Value Date Recorded Sex Assigned at Not on file Legal Sex Female 4:09 AM HOSPICE HOME HEALTH AIDE Gender Identity Not on file Sexual Orientation Not on file documented as of this encounter Plan of Treatment Not on file documented as of this encounter Visit Diagnoses Diagnosis Lumbago- Primary documented in this encounter Care Teams Test Engine Mechanic Relationship Specialty Start Date End Date Zack Gandara MD PCP - General Family Practice 01/23/19 03/19/19 documented as of this encounter
--- OUTSIDE RECORDS SUMMARY | 2025-01-08 17:20 | XMS_ITS | Encounter Summary ---
Author Organization [facility] Address [address] [place] [address] Care Team Providers Care Can Capper Name Role Phone Zack Gandara MD Primary Care Provider Encounter Details Date Type Department Care Team (Late st Contact Info) Description 05/27/2003 Emergency [facility] Emergency Department [address] [place] [phone] Jadiel Brothers D, DO [address] [place] [phone] LUMB/LUMBOSAC DISC DEGEN (Primary Dx) Social History Tobacco Use Types Packs/Day Years Used Date Smoking Tobacco: Never Assessed Comments Unknown Sex and Gender Information Value Date Recorded Sex Assigned at Not on file Legal Sex Female 4:09 AM TABLE OPERATOR Gender Identity Not on file Sexual Orientation Not on file documented as of this encounter Plan of Treatment Not on file documented as of this encounter Visit Diagnoses Diagnosis Degeneration of lumbar or lumbosacral intervertebral disc- Primary documented in this encounter Care Teams Can Capper Relationship Specialty Start Date End Date Zack Gandara MD PCP - General Family Practice 01/23/19 03/19/19 documented as of this encounter
--- OUTSIDE RECORDS SUMMARY | 2025-01-08 17:20 | XMS_ITS | Encounter Summary ---
Author Organization [facility] Address [address] [place] [address] Care Team Providers Care Silo Tender Name Role Phone Zack Gandara MD Primary Care Provider Encounter Details Date Type Department Care Team (Latest Contact Info) Description 01/04/2006 Outpatient Historical [facility] Internal Medicine [address] [place] [phone] [place] [address] [address] Obstructive Sleep Apnea (Primary Dx); Unspecified Essential Hypertension; Obesity, Unspecified; Tobacco Use Disorder Social History Tobacco Use Types Packs/Day Years Used Date Smoking Tobacco: Never Assessed Comments Unknown Sex and Gender Information Value Date Recorded Sex Assigned at Not on file Legal Sex Female 4:09 AM METALLURGICAL LAB TECHNICIAN Gender Identity Not on file Sexual Orientation Not on file documented as of this encounter Plan of Treatment Not on file documented as of this encounter Visit Diagnoses Diagnosis Obstructive sleep apnea- Primary Obstructive sleep apnea (adult) (pediatric) Unspecified essential hypertension Obesity, unspecified Tobacco use disorder documented in this encounter Care Teams Silo Tender Relationship Specialty Start Date End Date Zack Gandara MD PCP - General Family Practice 01/23/19 03/19/19 documented as of this encounter
--- OUTSIDE RECORDS SUMMARY | 2025-01-08 17:20 | XMS_ITS | Encounter Summary ---
Author Organization [facility] Address [address] [place]: Epic [place] [address] Care Team Providers Care Elementary [employer] Music Teacher Name Role Phone Zack Gandara MD Primary Care Provider Encounter Details Date Type Department Care Team (Latest Contact Info) Description 03/24/1999 Emergency [facility] Ed, Physician NO ADDRESS ON FILE Social History Tobacco Use Types Packs/Day Years Used Date Smoking Tobacco: Never Assessed Comments Unknown Sex and Gender Information Value Date Recorded Sex Assigned at Not on file Legal Sex Female 4:09 AM VBA PROGRAMMER Gender Identity Not on file Sexual Orientation Not on file documented as of this encounter Plan of Treatment Not on file documented as of this encounter Visit Diagnoses Not on filedocumented in this encounter Care Teams Elementary School Music Teacher Relationship Specialty Start Date End Date Zack Gandara MD PCP - General Family Practice 01/23/19 03/19/19 documented as of this encounter
--- OUTSIDE RECORDS SUMMARY | 2025-01-08 17:20 | XMS_ITS | Encounter Summary ---
Author Organization [facility] Address [address] [place] [address] Care Team Providers Care Medical Education Manager Name Role Phone Zack Gandara MD Primary Care Provider [phone] Encounter Details Date Type Department Care Team (Late st Contact Info) Description 07/14/[address] [facility] [address] [place] [phone] Charley Downs FNP NO ADDRESS ON FILE LUMBAGO (Primary Dx) Social History Tobacco Use Types Packs/Day Years Used Date Smoking Tobacco: Never Assessed Comments Unknown Sex and Gender Information Value Date Recorded Sex Assigned at Not on file Legal Sex Female 4:09 AM BRIM CURLER Gender Identity Not on file Sexual Orientation Not on file documented as of this encounter Plan of Treatment Not on file documented as of this encounter Visit Diagnoses Diagnosis Lumbago- Primary documented in this encounter Care Teams Medical Education Manager Relationship Specialty Start Date End Date Zack Gandara MD PCP - General Family Practice 01/23/19 03/19/19 documented as of this encounter
--- OUTSIDE RECORDS SUMMARY | 2025-01-08 17:20 | XMS_ITS | Encounter Summary ---
Author Organization [facility] Address [address] [place] [address] Care Team Providers Care Fruit Express Agent Name Role Phone Zack Gandara MD Primary Care Provider [phone] Encounter Details Date Type Department Care Team (Latest Contact Info) Description 12/17/2005 Outpatient Historical [facility] Family Medicine [address] [place] [address] Juancarlos Obrien MD NO ADDRESS ON FILE Pain in Joint, Pelvic Region and Thigh (Primary Dx) Social History Tobacco Use Types Packs/Day Years Used Date Smoking Tobacco: Never Assessed Comments Unknown Sex and Gender Information Value Date Recorded Sex Assigned at Not on file Legal Sex Female 4:09 AM EDUCATIONAL RECRUITER Gender Identity Not on file Sexual Orientation Not on file documented as of this encounter Plan of Treatment Not on file documented as of this encounter Visit Diagnoses Diagnosis Pain in joint, pelvic region and thigh- Primary documented in this encounter Care Teams Fruit Express Agent Relationship Specialty Start Date End Date Zack Gandara MD PCP - General Family Practice 01/23/19 03/19/19 documented as of this encounter
--- OUTSIDE RECORDS SUMMARY | 2025-01-08 17:21 | XMS_ITS | Encounter Summary ---
Author Organization [facility] Address [address] [place] [address] Care Team Providers Care Life Science Teacher Name Role Phone Zack Gandara MD Primary Care Provider Encounter Details Date Type Department Care Team (Late st Contact Info) Description 01/05/2007 Emergency [facility] Emergency Department [address] [place] [phone] Janel Fields, [facility] [address] [place] [phone] Acute Bronchitis (Primary Dx) Social History Tobacco Use Types Packs/Day Years Used Date Smoking Tobacco: Never Assessed Comments Unknown Sex and Gender Information Value Date Recorded Sex Assigned at Not on file Legal Sex Female 4:09 AM DETECTIVE SUPERVISOR Gender Identity Not on file Sexual Orientation Not on file documented as of this encounter Plan of Treatment Not on file documented as of this encounter Visit Diagnoses Diagnosis Acute bronchitis- Primary documented in this encounter Care Teams Life Science Teacher Relationship Specialty Start Date End Date Zack Gandara MD PCP - General Family Practice 01/23/19 03/19/19 documented as of this encounter
--- OUTSIDE RECORDS SUMMARY | 2025-01-08 17:21 | XMS_ITS | Encounter Summary ---
Author Organization [facility] Address [address] [place] [address] Care Team Providers Care Contact Lens Edge Buffer Name Role Phone Zack Gandara MD Primary Care Provider Encounter Details Date Type Department Care Team (Late st Contact Info) Description 04/18/2010 Emergency [facility] [address] [place] [address] Aleksander Goodson PA [address] [place] [address] Conversion, History NO ADDRESS ON [...] on file Legal Sex Female 4:09 AM CLERICAL WAREHOUSE WORKER Gender Identity Not on file Sexual Orientation Not on file documented as of this encounter Plan of Treatment Not on file documented as of this encounter Visit Diagnoses Diagnosis Lumbago- Primary Other chronic pain documented in this encounter Care Teams Contact Lens Edge Buffer Relationship Specialty Start Date End Date Zack Gandara MD PCP - General Family Practice 01/23/19 03/19/19 documented as of this encounter
--- OUTSIDE RECORDS SUMMARY | 2025-01-08 17:21 | XMS_ITS | Encounter Summary ---
Author Organization [facility] Address [address] [place] [address] Care Team Providers Care Supervisor Beater Room Name Role Phone Zack Gandara MD Primary Care Provider Encounter Details Date Type Department Care Team (Late st Contact Info) Description 07/07/2006 Outpatient Historical [facility] [address] [place] [address] [facility]BULANCE, [facility] Pneumonia, Organism Unspecified (Primary Dx) Social History Tobacco Use Types Packs/Day Years Used Date Smoking Tobacco: Never Assessed Comments Unknown Sex and Gender Information Value Date Recorded Sex Assigned at Not on file Legal Sex Female 4:09 AM WAISTBAND SETTER LOCKSTITCH Gender Identity Not on file Sexual Orientation Not on file documented as of this encounter Plan of Treatment Not on file documented as of this encounter Visit Diagnoses Diagnosis Pneumonia, organism unspecified(486)- Primary Pneumonia, organism unspecified documented in this encounter Care Teams Supervisor Beater Room Relationship Specialty Start Date End Date Zack Gandara MD PCP - General Family Practice 01/23/19 03/19/19 documented as of this encounter
--- OUTSIDE RECORDS SUMMARY | 2025-01-08 17:21 | XMS_ITS | Encounter Summary ---
Author Organization [facility] Address [address] [place] [address] Care Team Providers Care Coal Deliverer Name Role Phone Zack Gandara MD Primary Care Provider [phone] Encounter Details Date Type Department Care Team (Late st Contact Info) Description 02/18/2010 Emergency [facility] [address] [place] [address] [facility] [address] [place] [address] [address] [place] [id number] Conversion, History NO ADDRESS ON FILE Unspecified [...] on file Legal Sex Female 4:09 AM CRULLER MAKER MACHINE Gender Identity Not on file Sexual Orientation Not on file documented as of this encounter Plan of Treatment Not on file documented as of this encounter Visit Diagnoses Diagnosis Backache, unspecified- Primary Other chronic pain Nausea alone Vomiting alone documented in this encounter Care Teams Coal Deliverer Relationship Specialty Start Date End Date Zack Gandara MD PCP - General Family Practice 01/23/19 03/19/19 documented as of this encounter
--- OUTSIDE RECORDS SUMMARY | 2025-01-08 17:21 | XMS_ITS | Encounter Summary ---
Author Organization [facility] Address [address] [place] [address] Care Team Providers Care Dial Screw Assembler Name Role Phone Zack Gandara MD Primary Care Provider Encounter Details Date Type Department Care Team (Late st Contact Info) Description 11/22/2006 Outpatient Historical [facility]3] Orthopedics- [address] [place] [phone] David Kim MD [address] [place] [phone] Pain in Joint, Lower Leg (Primary Dx); Obesity, Unspecified; Unspecified Fall Social History Tobacco Use Types Packs/Day Years Used Date Smoking Tobacco: Never Assessed Comments Unknown Sex and Gender Information Value Date Recorded Sex Assigned at Not on file Legal Sex Female 4:09 AM MANAGER ANIMATION Gender Identity Not on file Sexual Orientation Not on file documented as of this encounter Plan of Treatment Not on file documented as of this encounter Visit Diagnoses Diagnosis Pain in joint, lower leg- Primary Obesity, unspecified Unspecified fall documented in this encounter Care Teams Dial Screw Assembler Relationship Specialty Start Date End Date Zack Gandara MD PCP - General Family Practice 01/23/19 03/19/19 documented as of this encounter
--- OUTSIDE RECORDS SUMMARY | 2025-01-08 17:21 | XMS_ITS | Encounter Summary ---
Author Organization [facility] Address [address] [place] [address] Care Team Providers Care Sourcing Associate Name Role Phone Zack Gandara MD Primary Care Provider [phone] Encounter Details Date Type Department Care Team (Late st Contact Info) Description 01/08/2007 Emergency [facility] Emergency Department [address] [place] [phone] Charley Downs FNP NO ADDRESS ON FILE Bronchitis, not Specified as Acute or Chronic (Primary Dx) Social History Tobacco Use Types Packs/Day Years Used Date Smoking Tobacco: Never Assessed Comments Unknown Sex and Gender Information Value Date Recorded Sex Assigned at Not on file Legal Sex Female 4:09 AM ELEMENTARY SCHOOL REGISTRAR Gender Identity Not on file Sexual Orientation Not on file documented as of this encounter Plan of Treatment Not on file documented as of this encounter Visit Diagnoses Diagnosis Bronchitis, not specified as acute or chronic- Primary documented in this encounter Care Teams Sourcing Associate Relationship Specialty Start Date End Date Zack Gandara MD PCP - General Family Practice 01/23/19 03/19/19 documented as of this encounter
--- OUTSIDE RECORDS SUMMARY | 2025-01-08 17:21 | XMS_ITS | Encounter Summary ---
Author Organization [facility] Address [address] [place] [address] Care Team Providers Care Hostess Party Sales Representative Name Role Phone Zack Gandara MD Primary Care Provider Encounter Details Date Type Department Care Team (Late st Contact Info) Description 01/23/2010 Emergency [facility] [address] [place] [address] Carito Proctor MD [address] [place] [address] Conversion, History NO ADDRESS ON [...] file Legal Sex Female 4:09 AM BUSINESS BANKING RELATIONSHIP MANAGER Gender Identity Not on file Sexual Orientation Not on file documented as of this encounter Plan of Treatment Not on file documented as of this encounter Visit Diagnoses Diagnosis Lumbago- Primary Other chronic pain Diarrhea Vomiting alone documented in this encounter Care Teams Hostess Party Sales Representative Relationship Specialty Start Date End Date Zack Gandara MD PCP - General Family Practice 01/23/19 03/19/19 documented as of this encounter
--- OUTSIDE RECORDS SUMMARY | 2025-01-08 17:21 | XMS_ITS | Encounter Summary ---
Author Organization [facility] Address [address] [place] [address] Care Team Providers Care Scrap Metal Collector Name Role Phone Zack Gandara MD Primary Care Provider [phone] Encounter Details Date Type Department Care Team (Late st Contact Info) Description 11/29/2006 Outpatient Historical [facility] [address] 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
--- OUTSIDE RECORDS SUMMARY | 2025-01-08 17:21 | XMS_ITS | Encounter Summary ---
Author Organization [facility] Address [address] [place] [address] Care Team Providers Care Hand Mixer Name Role Phone Zack Gandara MD Primary Care Provider [phone] Encounter Details Date Type Department Care Team (Late st Contact Info) Description 02/05/2007 Emergency [facility] Emergency Department [address] 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
--- OUTSIDE RECORDS SUMMARY | 2025-01-08 17:21 | XMS_ITS | Encounter Summary ---
Author Organization [facility] Address [address] [place] [address] Care Team Providers Care Waterproofer Helper Name Role Phone Zack Gandara MD Primary Care Provider [phone]- [phone] Encounter Details Date Type Department Care Team (Latest Contact Info) Description 04/26/2006 Outpatient Historical [facility] Family Medicine [address] [address] Juancarlos Obrien MD NO ADDRESS ON FILE Unspecified Sleep Apnea (Primary Dx); Lumbago; Unspecified Constipation; Bipolar Affective, Manic, Unspec (CMS/HCC) Social History Tobacco Use Types Packs/Day Years Used Date Smoking Tobacco: Never Assessed Comments Unknown Sex and Gender Information Value Date Recorded Sex Assigned at Not on file Legal Sex Female 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
--- OUTSIDE RECORDS SUMMARY | 2025-01-08 17:21 | XMS_ITS | Encounter Summary ---
Author Organization [facility] Address [address] [place] [address] Care Team Providers Care Make Up Editor Name Role Phone Zack Gandara MD Primary Care Provider Encounter Details Date Type Department Care Team (Latest Contact Info) Description 01/10/2007 Outpatient Historical [facility]3] Orthopedics- [address] [place] [phone] Eloy Lopez MD [address] [place] [address] Pain in Joint, Lower Leg (Primary Dx); Primary Localized Osteoarthrosis, Lower Leg; Morbid Obesity (CMS/HCC) Social History Tobacco Use Types Packs/Day Years Used Date Smoking Tobacco: Never Assessed Comments Unknown Sex and Gender Information Value Date Recorded Sex Assigned at Not on file Legal Sex Female 4:09 AM SOLAR TECH Gender Identity Not on file Sexual Orientation Not on file documented as of this encounter Plan of Treatment Not on file documented as of this encounter Visit Diagnoses Diagnosis Pain in joint, lower leg- Primary Primary localized osteoarthrosis, lower leg Morbid obesity (CMS/HCC) Morbid obesity documented in this encounter Care Teams Make Up Editor Relationship Specialty Start Date End Date Zack Gandara MD PCP - General Family Practice 12/10/19 2/3/20 documented as of this encounter
--- OUTSIDE RECORDS SUMMARY | 2025-01-08 17:21 | XMS_ITS | Encounter Summary ---
Author Organization [facility] Address [address] [place] [address] Care Team Providers Care Parachute Folder Name Role Phone Zack Gandara MD Primary Care Provider Encounter Details Date Type Department Care Team (Late st Contact Info) Description 12/29/[address] 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
--- OUTSIDE RECORDS SUMMARY | 2025-01-08 17:21 | XMS_ITS | Encounter Summary ---
Author Organization [facility] Address [address] [place] [address] Care Team Providers Care Manufacturing Executive Name Role Phone Zack Gandara MD Primary Care Provider Encounter Details Date Type Department Care Team (Late st Contact Info) Description 06/01/2007 Outpatient Historical [facility] IN BED Sj Ed, Physician NO ADDRESS ON FILE Sterling Eli MD NO ADDRESS ON FILE Sabino Troncoso MD [address] [place] [address] Nausea Alone; Body Mass Index 40 and Over, Adult; Obesity, Unspecified; Dysthymic Disorder; Chronic Pain Syndrome; Tobacco Use Disorder Social History Tobacco Use Types Packs/Day Years Used Date Smoking Tobacco: Never Assessed Comments Unknown Sex and Gender Information Value Date Recorded Sex Assigned at Not on file Legal Sex Female 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 RBC MORPHOLOGY Abnormal(A ) Normal [facility] BANDS 1 0 - 6 % [facility] ANISOCYTOSIS 1+(A) None Seen [facility] EOSINOPHILS 7(H) 0 - 3 % [facility] LYMPHOCYTES 65(H) 24 - 44 % [facility] PLATELET EST. Normal Normal [facility] NEUTROPHILS, SEG 22(L) 36 - 66 % [facility] Blood specimen (specimen) 06/04/2007 3:50 AM CDT 06/04/2007 4:[address] [facility] - 06/04/2007 5:10 AM CDT Differential ordered by policy. Sabino Troncoso MD HEMATOLOGY ORDERABLES COM Final Result Performing Organization Address [facility] Co de Phone Number [facility] [address] [place] [address] * (ABNORMAL) CBC WITH DIFFERENTIAL (06/04/2007 3:50 AM CDT) HEMOGLOBIN 11.7(L) 12.0 - 16.0 g/dL [facility] RDW 15.0(H) 11.0 - 14.5 % [facility] WBC 9.5 4.5 - 11.0 K/ul [facility] MCH 28.7 27.0 - 34.[address] [facility] HEMATOCRIT 37.2 36.0 - 46.0 % [facility] PLATELETS 151 140 - 440 K/ul [facility] RBC 4.07(L) 4.20 - 5.40 Mil/ul [facility] MCHC 31.5 30.0 - 35.0 g/dL [facility] MCV 91.4 84.0 - 103.[address] [facility] MPV 9.8 8.9 - 12.[address] [facility] Blood specimen (specimen) 06/04/2007 3:50 AM CDT 06/04/2007 4:01 AM CDT Sabino Troncoso MD HEMATOLOGY ORDERABLES Fin al Result Performing Organization Address City/[facility]/ZIP Co de Phone Number [facility] [address] [place] [address] * URINE CULTURE (06/03/2007 4:50 PM CDT) FINAL REPORT 1000 CFU/ml Gram positive cocci Further workup on non-catheterized urine cultures on quantities <5000 col/ml not indicated. Please notify Microbiology if further identification and/or susceptibility requested. INTERFACE SYSTEM 06/03/2007 4:50 PM CDT 06/03/2007 4:50 PM CDT Sabino Troncoso MD MICROBIOLOGY - GENERAL OR DERABLES Final Result Performing Organization Address [facility] de Phone Number INTERFACE SYSTEM Refer to clinic/hospital department * URINE CULTURE (06/02/2007 11:31 AM CDT) FINAL REPORT Mixed gram positive olga suggestive of genital/skin olga. If clinically indicated, please submit an appropriately collected specimen. INTERFACE SYSTEM 06/02/2007 11:3 1 AM CDT 06/02/2007 11:31 AM CDT Sabino Troncoso MD MICROBIOLOGY - GENERAL OR DERABLES Final Result Performing Organization Address [facility] Phone Number INTERFACE SYSTEM Refer to clinic/hospital department * (ABNORMAL) COMPREHENSIVE METABOLIC PANEL (06/02/2007 4:05 AM CDT) GLUCOSE 89 70 - 110 mg/dL [facility] ALKALINE PHOSPHATASE 212(H) 25 - 100 U/L [facility] CHLORIDE 113(H) 95 - 110 mEq/L [facility] OSMOLALITY, CALCULATED 286 275 - 295 mOsm/Kg [facility] GLOBULIN (CALC) 2.9 2.4 - 3.9 g/dL [facility] TOTAL PROTEIN 5.7(L) 6.3 - 8.2 g/dL [facility] SODIUM 141 136 - 145 mEq/L [facility] BILIRUBIN TOTAL 0.2(L) 0.3 - 1.2 mg/dL [facility] CO2 23 22 - 32 mmol/l [facility] BUN 5(L) 7 - 17 mg/dL [facility] AST 75(H) 8 - 33 U/L [facility] ALBUMIN/GLOBULIN RATIO 1.0 1.0 - 2.3 [facility] POTASSIUM 3.7 3.5 - 5.0 mEq/L [facility] ANION GAP 9 9 - 20 mEq/L [facility] ALBUMIN 2.8(L) 3.5 - 5.0 g/dL [facility] CREATININE 0.5(L) 0.7 - 1.2 mg/dL [facility] ALT 23 4 - 36 IU/L [facility] CALCIUM 8.1(L) 8.4 - 10.5 mg/dL [facility] Blood specimen (specimen) 06/02/2007 4:05 AM CDT 06/02/2007 4:21 AM CDT Sabino Troncoso MD CHEMISTRY ORDERABLES Chichi conley Result Performing Organization Address City/State/[facility] Co de Phone Number [facility] [address] [place] [address] * (ABNORMAL) CBC WITH DIFFERENTIAL (06/02/2007 4:05 AM CDT) LYMPHOCYTE ABSOLUTE 8.7(H) 1.2 - 4.0 K/ul [facility] LYMPHOCYTES 73.1(H) 24.0 - 44.0 % [facility] RBC 4.03(L) 4.20 - 5.40 Mil/ul [facility] MCHC 31.8 30.0 - 35.0 g/dL [facility] BASOPHILS 3.0(H) 0.0 - 1.0 % [facility] MCV 90.6 84.0 - 103.[address] [facility] BASOPHILS ABSOLUTE 0.4(H) 0.0 - 0.2 K/ul [facility] MPV 10.3 8.9 - 12.[address] [facility] MONOCYTES 11.7(H) 2.0 - 10.0 % [facility] HEMOGLOBIN 11.6(L) 12.0 - 16.0 g/dL [facility] MONOCYTE ABSOLUTE 1.4(H) 0.1 - 0.6 K/ul [facility] RDW 14.7(H) 11.0 - 14.5 % [facility] NEUTROPHILS 11.1(L) 42.2 - 75.2 % [facility] WBC 11.8(H) 4.5 - 11.0 K/ul [facility] NEUTROPHIL ABSOLUTE 1.3(L) 2.0 - 8.0 K/ul [facility] MCH 28.8 27.0 - 34.[address] [facility] EOSINOPHIL ABSOLUTE 0.1 0.0 - 0.7 K/ul [facility] EOSINOPHILS 1.1 0.0 - 7.0 % [facility] HEMATOCRIT 36.5 36.0 - 46.0 % [facility] PERIPHERAL BLOOD SMEAR REVIEW Smear Reviewed [facility] Comment: Most lymphs atypical. PLATELETS 144 140 - 440 K/ul [facility] Blood specimen (specimen) 06/02/2007 4:05 AM CDT 06/02/2007 4:20 AM CDT Sabino Troncoso MD HEMATOLOGY ORDERABLES Rohit sabi Performing Organization Address City/[facility] Co de Phone Number [facility] [address] [place] [address] * CLOSTRIDIUM DIFFICILE TOXIN (06/01/2007 9:31 PM CDT) C DIFFICILE TOXIN Negative Negative [facility] 06/01/2007 9:31 PM CDT 06/01/2007 9:31 PM CDT Sabino Troncoso MD MICROBIOLOGY - GENERAL OR DERABLES Final Result Performing Organization Address [facility] Co de Phone Number [facility] [address] [place] [address] * CT ABDOMEN PELVIS W CONTRAST (06/01/2007 [...] By: Hannah Pendleton M.D. Date Signed: 06/01/07 [facility] Procedure Note Hannah Pendleton S - 06/01/2007 [...] 11:12 AM CDT) BLAST 1(H) <=0 % [facility] BANDS 2 0 - 6 % [facility] MONOCYTE 6 4 - 10 % [facility] PLATELET EST. Normal Normal [facility] LYMPHOCYTES 44 24 - 44 % [facility] NEUTROPHILS, SEG 28(L) 36 - 66 % [facility] RBC MORPHOLOGY Normal Normal [facility] BASOPHILS 1 0 - 1 % [facility] ATYPICAL LYMPHOCYTE 18(H) <=0 % [facility] Blood specimen (specimen) 06/01/2007 11:12 AM CDT 06/01/2007 11:[address] [facility] - 06/01/2007 11:34 AM CDT Differential ordered by policy. us Sterling Eli MD HEMATOLOGY ORDERABLES COM Final Result [facility] [address] [place] [address] * (ABNORMAL) CBC WITH DIFFERENTIAL (06/01/2007 11:12 AM CDT) WBC 17.9(H) 4.5 - 11.0 K/ul [facility] MCH 29.4 27.0 - 34.[address] [facility] HEMATOCRIT 42.8 36.0 - 46.0 % [facility] PLATELETS 168 140 - 440 K/ul [facility] RBC 4.76 4.20 - 5.40 Mil/ul [facility] MCHC 32.7 30.0 - 35.0 g/dL [facility] MCV 89.9 84.0 - 103.[address] [facility] MPV 10.2 8.9 - 12.[address] [facility] HEMOGLOBIN 14.0 12.0 - 16.0 g/dL [facility] RDW 14.5 11.0 - 14.5 % [facility] Blood specimen (specimen) 06/01/2007 11:12 AM CDT 06/01/2007 11:15 AM CDT us Sterling Eli MD HEMATOLOGY ORDERABLES Edit ed Performing Organization Address City/State/[facility] Co de Phone Number [facility] [address] [place] [address] * (ABNORMAL) COMPREHENSIVE METABOLIC PANEL (06/01/2007 11:12 AM CDT) POTASSIUM 4.0 3.5 - 5.0 mEq/L [facility] GLOBULIN (CALC) 3.9 2.4 - 3.9 g/dL [facility] ALBUMIN 3.6 3.5 - 5.0 g/dL [facility] CREATININE 0.7 0.7 - 1.2 mg/dL [facility] ALT 18 4 - 36 IU/L [facility] CALCIUM 9.0 8.4 - 10.5 mg/dL [facility] OSMOLALITY, CALCULATED 280 275 - 295 mOsm/Kg [facility] GLUCOSE 95 70 - 110 mg/dL [facility] ALKALINE PHOSPHATASE 218(H) 25 - 100 U/L [facility] CHLORIDE 108 95 - 110 mEq/L [facility] ALBUMIN/GLOBULIN RATIO 0.9(L) 1.0 - 2.3 [facility] TOTAL PROTEIN 7.5 6.3 - 8.2 g/dL [facility] SODIUM 137 136 - 145 mEq/L [facility] BILIRUBIN TOTAL 0.3 0.3 - 1.2 mg/dL [facility] BUN 7 7 - 17 mg/dL [facility] CO2 24 22 - 32 mmol/l [facility] ANION GAP 9 9 - 20 mEq/L [facility] AST 56(H) 8 - 33 U/L [facility] Blood specimen (specimen) 06/01/2007 11:12 AM CDT 06/01/2007 11:15 AM CDT Sterling Eli MD CHEMISTRY ORDERABLES Final Result Performing Organization Address [facility] Phone Number [facility] [address] [place] [address] * LIPASE (06/01/2007 11:12 AM CDT) LIPASE 28 6 - 51 U/L [facility] Blood specimen (specimen) 06/01/2007 11:12 AM CDT 06/01/2007 11:15 AM CDT Sterling Eli MD CHEMISTRY ORDERABLES Final Result Performing Organization Address [facility] Number [facility] [address] [place] [address] * (ABNORMAL) URINALYSIS MICROSCOPY ONLY (06/01/2007 11:10 AM CDT) HYALINE CAST 3-5(A) 0 - 2 [facility] WBC URINE 0-2 0 - 2 [facility] BACTERIA UA Many(A) None Seen [facility] RBC UA None Seen 0 - 2 [facility] Urine specimen (specimen) 06/01/2007 11:10 AM CDT 06/01/2007 11:[address] [facility] - 06/01/2007 11:28 AM CDT Microscopic ordered by policy Sterling Eli MD URINE ORDERABLES Final Res ult Performing Organization Address [facility] de Phone Number [facility] [address] [place] [address] * ICTOTEST (06/01/2007 11:10 AM CDT) ICTO Negative Negative [facility] Urine specimen (specimen) 06/01/2007 11:10 AM CDT 06/01/2007 11:[address] [facility] - 06/01/2007 11:28 AM CDT Bili verified by ictotest Sterling Eli MD URINE ORDERABLES Final Res ult Performing Organization Address [facility] de Phone Number [facility] [address] [place] [address] * (ABNORMAL) URINALYSIS (06/01/2007 11:10 AM CDT) PH UA 5.0 5.0 - 9.0 [facility] NITRITE UA NEGATIVE NEGATIVE [facility] SPECIFIC GRAVITY UA 1.034 <=1.005 [facility] COLOR UA Yellow Straw [facility] LEUKOCYTE ESTERASE UA NEGATIVE NEGATIVE [facility] BLOOD UA NEGATIVE NEGATIVE [facility] CLARITY UA SL CLOUDY Clear [facility] GLUCOSE UA NEGATIVE NEGATIVE [facility] UROBILINOGEN UA 1.0(A) 0.2 [facility] MICRO EXAM Yes(A) No [facility] PROTEIN UA 30 mg/dl(A) NEGATIVE [facility] KETONES UA Trace(A) NEGATIVE [facility] Urine specimen (specimen) 06/01/2007 11:10 AM CDT 06/01/2007 11:13 AM CDT Sterling Eli MD URINE ORDERABLES Final Res ult Performing Organization Address [facility] Co de Phone Number [facility] [address] [place] [address] documented in this encounter Visit Diagnoses Diagnosis Nausea alone Body mass index 40 and over, adult Body Mass Index 40 and over, adult Obesity, unspecified Dysthymic disorder Chronic pain syndrome Tobacco use disorder documented in this encounter Care Teams Manufacturing Executive Relationship Specialty Start Date End Date Zack Gandara MD PCP - General Family Practice 01/23/19 03/19/19 documented as of this encounter
--- OUTSIDE RECORDS SUMMARY | 2025-01-08 17:21 | XMS_ITS | Encounter Summary ---
Author Organization [facility] Address [address] [place] [address] Care Team Providers Care Lacquer Sizer Name Role Phone Zack Gandara MD Primary Care Provider [phone] Encounter Details Date Type Department Care Team (Late st Contact Info) Description 02/21/2007 Outpatient Historical [facility] 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
--- OUTSIDE RECORDS SUMMARY | 2025-01-08 17:21 | XMS_ITS | Encounter Summary ---
Author Organization [facility] Address [address] [place] [address] Care Team Providers Care Clock And Watch Hands Painter Name Role Phone Zack Gandara MD Primary Care Provider Encounter Details Date Type Department Care Team (Late st Contact Info) Description 11/30/2006 Outpatient [facility] [address] [place] [address] Social History Tobacco Use Types Packs/Day Years Used Date Smoking Tobacco: Never Assessed Comments Unknown Sex and Gender Information Value Date Recorded Sex Assigned at Not on file Legal Sex Female 4:09 AM TRAIN OPERATOR Gender Identity Not on file Sexual Orientation Not on file documented as of this encounter Plan of Treatment Not on file documented as of this encounter Visit Diagnoses Not on filedocumented in this encounter Care Teams Clock And Watch Hands Painter Relationship Specialty Start Date End Date Zack Gandara MD PCP - General Family Practice 01/23/19 03/19/19 documented as of this encounter
--- OUTSIDE RECORDS SUMMARY | 2025-01-08 17:21 | XMS_ITS | Encounter Summary ---
Author Organization [facility] Address [address] [place] [address] Care Team Providers Care Foot Piece Assembler Name Role Phone Zack Gandara MD Primary Care Provider [phone] Encounter Details Date Type Department Care Team (Late st Contact Info) Description 04/24/2006 Emergency [facility] Emergency Department [address] 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
--- OUTSIDE RECORDS SUMMARY | 2025-01-08 17:21 | XMS_ITS | Encounter Summary ---
Author Organization [facility] Address [address] [place] [address] Care Team Providers Care Charter Boat Captain Name Role Phone Zack Gandara MD Primary Care Provider [phone] Encounter Details Date Type Department Care Team (Late st Contact Info) Description 11/11/2006 Emergency [facility] Emergency Department [address] [place] [address] Taras Kaur, HISTORIC PRESERVATIONIST [address] [place] [address] Sprain and Strain of Unspecified Site of Knee and Leg (Primary Dx) Social History Tobacco Use Types Packs/Day Years Used Date Smoking Tobacco: Never Assessed Comments Unknown Sex and Gender Information Value Date Recorded Sex Assigned at Not on file Legal Sex Female 4:09 AM DIP STAND LOADER Gender Identity Not on file Sexual Orientation [...] M.D.MD Date Signed: 11/12/06 AMA Taras Kaur HISTORIC PRESERVATIONIST DIAGNOSTIC IMAGING ORDERABLES Final Result documented in this encounter Visit Diagnoses Diagnosis Sprain and strain of unspecified site of knee and leg- Primary documented in this encounter Care Teams Charter Boat Captain Relationship Specialty Start Date End Date Zack Gandara MD PCP - General Family Practice 01/23/19 03/19/19 documented as of this encounter
--- OUTSIDE RECORDS SUMMARY | 2025-01-08 17:21 | XMS_ITS | Encounter Summary ---
Author Organization [facility] Address [address] [place] [address] Care Team Providers Care Passenger Service Agent Name Role Phone Zack Gandara MD Primary Care Provider [phone] Encounter Details Date Type Department Care Team (Latest Contact Info) Description 08/15/2006 Outpatient Historical [facility] Medicine [address] [address] Juancarlos Obrien MD NO ADDRESS ON FILE Bipolar Disorder, Unspecified (CMS/HCC) (Primary Dx); Lumbago Social History Tobacco Use Types Packs/Day Years Used Date Smoking Tobacco: Never Assessed Comments Unknown Sex and Gender Information Value Date Recorded Sex Assigned at Not on file Legal Sex Female 4:09 AM TRAFFIC RATE 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
--- OUTSIDE RECORDS SUMMARY | 2025-01-08 17:21 | XMS_ITS | Clinical Summary ---
Author Organization [facility] Address [address] [place] [address] Phone Care Team Providers Care Forecast Analyst Name Role Phone Unavailable Primary Care Provider [...] on file Legal Sex Female 4:09 AM ROVING HAULER Gender Identity Not on file Sexual [...] PM CDT Pulse 107 01/23/2019 1:33 PM ROVING HAULER Temperature 35.5 C (95.9 F) 04/24/2019 3:13 [...] Done Comments Pre-Diabetes and Diabetes Screening 1964 HPV/Cotest (21-29) 1985 HPV/Cotest (30-65) 1994 BREAST [...] of 3 - Risk 3-dose series) 2024 Procedures Procedure Name Priority Date/Time Associated Diagnosis Comments ENDOSCOPY, COLON, DIAGNOSTIC Routine 07/06/2007 from Last 3 Months or Most Recently Relevant to Health Maintenance Results * ENDOSCOPY, COLON, DIAGNOSTIC (07/06/2007) us Kirill Kinney MD GI PROCEDURE ORDERABLES Final Result from Last 3 Months or Most Recently Relevant to Health Maintenance Insurance [place]ICA[id number] Advance Directives For more information, please contact: [phone] * Full Code (Latest Code Status on File) Date Activated Date Inactivated Comments 09/18/2017 11:41 PM 09/21/2017 7:58 PM * Full Code Date Activated Date Inactivated Comments 03/10/2014 6:52 PM 03/11/2014 5:18 PM * Full Code Date Activated Date Inactivated Comments 03/10/2014 4:41 AM 03/10/2014 6:52 PM
--- OUTSIDE RECORDS SUMMARY | 2025-01-08 17:21 | XMS_ITS | Encounter Summary ---
Author Organization [facility] Address [address] [place] [address] Care Team Providers Care Safety And Security Officer Name Role Phone Zack Gandara MD Primary Care Provider Encounter Details Date Type Department Care Team (Late st Contact Info) Description 06/13/2010 Emergency [facility] [address] 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
--- OUTSIDE RECORDS SUMMARY | 2025-01-08 17:21 | XMS_ITS | Encounter Summary ---
Author Organization [facility] Address [address] [place] [address] Care Team Providers Care Examination Supervisor Name Role Phone Zack Gandara MD Primary Care Provider Encounter Details Date Type Department Care Team (Late st Contact Info) Description 02/02/2010 Emergency [facility] [address] 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
--- OUTSIDE RECORDS SUMMARY | 2025-01-08 17:21 | XMS_ITS | Encounter Summary ---
Author Organization [facility] Address [address] [place] [address] Care Team Providers Care Furnace Fitter Name Role Phone Zack Gandara MD Primary Care Provider Encounter Details Date Type Department Care Team (Late st Contact Info) Description 05/28/2010 Emergency [facility] [address] 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
--- OUTSIDE RECORDS SUMMARY | 2025-01-08 17:21 | XMS_ITS | Encounter Summary ---
Author Organization [facility] Address [address] [place] [address] Care Team Providers Care Cabin Service Agent Name Role Phone Zack Gandara MD Primary Care Provider Encounter Details Date Type Department Care Team (Latest Contact Info) Description 02/02/2007 Outpatient Historical [facility] Operating Room [address] [place] [id number] Eloy Lopez MD [address] [place] [address] Chondromalacia of Patella; Plica Syndrome; Chronic Pain Syndrome; Headache; Anxiety State, Unspecified; Tobacco Use Disorder; Morbid Obesity (CMS/[facility]); Obstructive Sleep Apnea (Adult) (Pediatric); Bipolar Disorder, Unspecified (CMS/[facility]); Personal History of Allergy to Analgesic Agent; Personal History of Allergy to Penicillin; Personal History of Allergy to Sulfonamides; Personal History of Allergy to Other Specified Medicinal Agents Social History Tobacco Use Types Packs/Day Years Used Date Smoking Tobacco: Never Assessed Comments Unknown Sex and Gender Information Value Date Recorded Sex Assigned at Not on file 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 Gender Identity Not on file Sexual Orientation Not on file documented as of this encounter Plan of Treatment Not on file documented as of this encounter Visit Diagnoses Diagnosis Chondromalacia of patella Plica syndrome Chronic pain syndrome Headache(784.0) Headache Anxiety state, unspecified Tobacco use disorder Morbid obesity (CMS/[facility]) Morbid obesity Obstructive sleep apnea (adult) (pediatric) Bipolar disorder, unspecified (CMS/[facility]) Bipolar disorder, unspecified Personal history of allergy to analgesic agent Personal history of allergy to penicillin Personal history of allergy to sulfonamides Personal history of allergy to other specified medicinal agents documented in this encounter Care Teams Cabin Service Agent Relationship Specialty Start Date End Date Zack Gandara MD PCP - General Family Practice 01/23/19 03/19/19 documented as of this encounter
--- OUTSIDE RECORDS SUMMARY | 2025-01-08 17:21 | XMS_ITS | Encounter Summary ---
Author Organization [facility] Address [address] [place] [address] Care Team Providers Care Sales Recruiting Coordinator Name Role Phone Zack Gandara MD Primary Care Provider [phone] Encounter Details Date Type Department Care Team (Late st Contact Info) Description 03/08/2007 Emergency [facility] Emergency Department [address] 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
--- OUTSIDE RECORDS SUMMARY | 2025-01-08 17:21 | XMS_ITS | Encounter Summary ---
Author Organization [facility] Address [address] [place] [address] Care Team Providers Care Teaching Dietitian Name Role Phone Zack Gandara MD Primary Care Provider Encounter Details Date Type Department Care Team (Late st Contact Info) Description 03/21/2007 Outpatient Historical [facility] 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 I gave her [employer] handouts for both of those entities. I [...] , P, 136 Job #: Document #: [id number] cc: Atul Rudd M.D. SUPERVISOR documented in this encounter Plan of Treatment Not on file documented as of this encounter Visit Diagnoses Not on filedocumented in this encounter Care Teams Teaching Dietitian Relationship Specialty Start Date End Date Zack Gandara MD PCP - General Family Practice 01/23/19 03/19/19 documented as of this encounter
--- OUTSIDE RECORDS SUMMARY | 2025-01-08 17:21 | XMS_ITS | Encounter Summary ---
Author Organization [facility] Address [address] [place] [address] Care Team Providers Care Outside Cutter Name Role Phone Zack Gandara MD Primary Care Provider Encounter Details Date Type Department Care Team (Latest Contact Info) Description 01/12/2007 Outpatient Historical [facility] Operating Room [address] [place] [address] Eloy Lopez MD [address] [place] [address] Morbid Obesity (CMS/HCC); Primary Localized Osteoarthrosis, Lower Leg; Personal History of Allergy to Sulfonamides; Procedure not Carried Out for Other Reasons Social History Tobacco Use Types Packs/Day Years Used Date Smoking Tobacco: Never Assessed Comments Unknown Sex and Gender Information Value Date Recorded Sex Assigned at Not on file 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
--- OUTSIDE RECORDS SUMMARY | 2025-01-08 17:21 | XMS_ITS | Encounter Summary ---
Author Organization [facility] Address [address] [place] [address] Care Team Providers Care Steam Setter Name Role Phone Zack Gandara MD Primary Care Provider Encounter Details Date Type Department Care Team (Late st Contact Info) Description 01/08/2007 Outpatient Historical [facility] [address] 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
[2025-01-08] MEDS: ondansetron 2 mg/ML SDV 2 mL 4 MG IVP (17:30)
[2025-01-08] MEDS: HYDROmorphone 0.5 MG/0.5 ML INJ 1 MG IVP (17:30)
--- NOTE | 2025-01-08 17:32 | W.ED.CHESTPA ---
HPI - Chest Pain General: Chief Complaint: Chest Pain Stated Complaint: Chest Pain Source: patient and EMS Mode of arrival: EMS Limitations: no limitations History of Present Illness: 59-year-old female is here with multiple complaints. Patient has a history of chronic pain patient states that she had had a biopsy done on her right thigh over a week ago was having pain at that site. States she has arthritis in bilateral hips and is having bilateral hip pain. Patient also states she been having some chest pain today. She denies any severe shortness of breath. Patient denies any fever or vomiting. Rates her pain a 9 out of 10 currently denies any worse improved factors. Related Data Home Medications ?Medication ?Instructions ?Recorded ?Confirmed insulin lispro 100 unit/mL See Rx Instructions .Route .COMPLEX 04/22/24 12/28/24 subcutaneous pen (Admelog SoloStar U-100 Insulin lispro) blood-glucose sensor 12/28/24 12/28/24 duloxetine 30 mg capsule,delayed 30 mg PO BID 12/28/24 12/28/24 release Previous Rx's ?Medication ?Instructions ?Recorded manual wheelchair #1 ea 10/03/19 TENS unit and equipment #1 ea 10/01/22 CPAP 6-16cm setting #1 ea 11/23/22 CPAP mask, tubing, supplies #1 ea 11/23/22 Left wrist brace #1 ea 12/06/22 lancets #100 ea 01/24/23 lancets #200 ea 02/21/23 motorized electric scooter #1 ea 02/21/23 blood sugar diagnostic (Blood #200 ea 03/04/23 Glucose Test strips) blood sugar diagnostic (Blood #200 ea 03/16/23 Glucose Test strips) lancets #200 ea 03/16/23 naloxone 4 mg/actuation nasal 4 mg intranasal Q2M PRN opioid 03/16/23 spray (Narcan) overdose #2 ea pen needle, diabetic 30 gauge x #100 ea 03/17/23/ (Pen Needle) dexcom G7 transmitter #1 ea 07/29/23 aspirin 81 mg chewable tablet 81 mg PO QAM #60 tabs 08/17/23 loperamide 2 mg tablet (Imodium 2 mg PO QID PRN loose stool #30 01/18/24 A-D) tabs blood-glucose,buyer tobacco head,cont #1 ea 03/06/24 (Dexcom G7 Solar Energy Advisor) portable oxygen concentrator #1 ea 06/21/24 meloxicam 15 mg tablet 15 mg PO QAM #90 tabs 06/27/24 insulin glargine 100 unit/mL (3 25 unit (0.25 mL) SUBCUT QAM #15 mL 07/17/24 mL) subcutaneous pen (Lantus Solostar U-100 Insulin) gabapentin 600 mg tablet 600 mg PO TID #270 tabs 07/30/24 metformin 500 mg tablet 1,000 mg (2 x 500 mg) PO BID #360 07/30/24 tabs nicotine 14 mg/24 hr daily 1 patch transdermal DAILY #28 ea 10/26/24 transdermal patch quetiapine 150 mg tablet,extended 150 mg PO BEDTIME #90 tabs 10/29/24 release 24 hr (Seroquel XR) tirzepatide (weight loss) 7.5 7.5 mg (0.5 mL) SUBCUT .qweekly #2 11/02/24 mg/0.5 mL subcutaneous pen injector mL wheelchair #1 ea 11/02/24 promethazine 25 mg tablet 25 mg PO TID PRN Nausea And 12/07/24 Vomiting #90 tabs cetirizine 10 mg tablet (Zyrtec) 10 mg PO DAILY PRN allergy 12/12/24 symptoms #90 tabs famotidine 20 mg tablet 20 mg PO QDAY #90 tabs 12/20/24 hydrocodone 7.5 mg-acetaminophen 1 tab PO BID PRN pain 30 days #60 12/20/24 325 mg tablet tabs morphine 30 mg tablet,extended 30 mg PO .qdaily pain 30 days #30 12/20/24 release (MS Contin) tabs methylprednisolone 4 mg tablets in See Rx Instructions PO .COMPLEX 12/28/24 a dose pack (Medrol (Bao)) #21 ea fluticasone propionate 50 2 spray intranasal DAILY #16 grams 12/31/24 mcg/actuation nasal spray,suspension (Flonase Allergy Relief) ondansetron 4 mg disintegrating 4 mg PO Q6H PRN nausea and 01/08/25 tablet vomiting #14 tabs Allergies Allergy/AdvReac Type Severity Reaction Status Date / Time ketorolac (From Toradol) Allergy Severe ALGY-Anaphy Verified 12/20/24 14:06 laxis Penicillins Allergy Severe ALGY-Anaphy Verified 12/20/24 14:06 laxis Sulfa (Sulfonamide Allergy Severe ALGY-Anaphy Verified 12/20/24 14:06 Antibiotics) laxis tetracycline Allergy Severe ALGY-Anaphy Verified 12/20/24 14:06 laxis lidocaine Allergy ALGY-Hives Verified 12/20/24 14:06 tramadol (From Ultram) Allergy ALGY-Difficulty Verified 12/20/24 14:06 Breathing PFS ED PFSH: Medical History (Updated 01/08/25 @ 19:47 by Karen Oviedo MD) Allergic conjunctivitis and rhinitis Adrenal mass Type 2 diabetes mellitus Hospital discharge follow-up Chronic hypercapnic respiratory failure Chronic respiratory failure with hypoxia Dyslipidemia Neuropathic pain, leg, bilateral Osteoarthritis IVELISSE (obstructive sleep apnea) GERD without esophagitis Chronic low back pain Pulmonary nodules Rheumatoid arthritis History of stroke Chronic cystitis delivery delivered Constipation Hematochezia Insomnia Community acquired pneumonia History of bipolar disorder History of hypertension Surgical History History of incisional hernia repair History of hysterectomy History of cholecystectomy History of tonsillectomy History of knee surgery Family History Mother , at age 78 COVID-19 Brother , at age 58 Cancer Colon Father , at age 45 Car occupant injured in traffic accident Cancer Colon Family/Other Cancer Paternal-lung Other Chronic kidney disease (CKD) Dementia Diabetes Hyperlipidemia Hypertension Lung disease Stroke Denies family history of CAD (coronary artery disease) Clotting disorder Psychiatric illness Anesthesia complication Bleeding disorder Social History Smoking and tobacco/nicotine status: current every day tobacco/nicotine user cigarettes Packs smoked per day: 0.5 Years cigarettes smoked: 30 [ Other cigarette details: Currently smoking 6-7/day] Quit status (tobacco/nicotine): considering quitting Alcohol intake: never Substance/Drug Use: former Adopted: No Lives independently: Yes Household members: spouse Marital status: Number of grandchildren: 2 Current occupational status: disabled Special sherine needs: No Agree to transfusion: Yes Female Reproductive History: Spontaneous abortions: No Physical Exam Const: COMMON NORMALS: patient oriented x3 HENMT: COMMON NORMALS: normocephalic and atraumatic HEAD & SCALP: normocephalic and atraumatic Neck/C-Spine: COMMON NORMALS: full ROM and supple Chest: COMMONS NORMALS: normal inspection of the chest and normal palpation of entire chest wall Resp: COMMON NORMALS: normal respiratory effort, No retractions, No use of accessory muscles and clear to auscultation bilaterally AUSCULTATION: clear to auscultation bilaterally Cardio: COMMON NORMALS: regular rate, regular rhythm and No murmurs present (Cardio) RATE: regular rate RHYTHM: regular rhythm GI: COMMON NORMALS: Normal to inspection, nondistended, normoactive bowel sounds present, Soft to palpation, non-tender and no masses PALPATION: Yes Soft to palpation Extremity: COMMON NORMALS: full ROM NARRATIVE EXTREMITY EXAM: Wound to right inner thigh is clean dry and intact no signs of cellulitis Neuro: COMMON NORMALS: patient oriented x3, moves all extremities and no focal motor deficits Psych: COMMON NORMALS: mental status grossly normal, Normal thought process present and cooperative THOUGHT PROCESS: Normal thought process present Skin: COMMON NORMALS: no rashes or lesions noted and no wounds GENERAL SKIN EXAM: no rashes or lesions noted Course Vital Signs: Vital signs: Vital Signs Temperature 97.8 F 01/08/25 17:16 Pulse Rate 116 H 01/08/25 21:47 Respiratory Rate 20 H 01/08/25 19:31 Blood Pressure 126/105 01/08/25 21:47 Pulse Oximetry 92 01/08/25 21:47 Oxygen Delivery Me thod Room Air 01/08/25 19:31 MDM - Chest Pain Medical Decision Making 59-year-old female with a history of chronic pain presents here with multiple complaints pain everywhere including chest hips back. Patient has no signs of ACS here EKG was interpreted by me showed sinus tach heart rate [address] elevation QRS 106 QTc 379. Patient has no shortness of breath no signs of pulmonary emboli. And a mild leukocytosis but has had an elevated white count in the past she has no signs of infection here her labs are otherwise normal. Patient's improved here after pain meds I feel this is likely her chronic pain she is stable for discharge at this time she has to follow-up her PCP and return if worsening. Medical Records I reviewed the patient's medical records. Lab Data I reviewed the patient's lab results. 01/08/25 17:25 01/08/25 17:25 Radiology Impressions Chest X-Ray 01/08/25 17:14 IMPRESSION: No acute findings. Laboratory Results WBC 16.83 10^3/uL (3.29-11.43) H 01/08/25 17: RBC 4.69 10^6/uL (3.85-5.65) 01/08/25 17: Hgb 13.60 g/dL (11.27-16.99) 01/08/25 17: Hct 43.9 % (36-47) 01/08/25 17: MCV 93.6 fl (85-98) 01/08/25 17: MCH 29.0 pg (27-33) 01/08/25 17: MCHC 31.0 g/dL (30-55) 01/08/25 17: RDW 13.6 % (12.1-15.1) 01/08/25 17: Plt Count 270 10^3/cmm (157-399) 01/08/25 17: MPV 10.4 fL (7.4-10.4) 01/08/25 17: Neut % (Auto) 60.0 % 01/08/25 17: Lymph % (Auto) 30.7 % 01/08/25 17: [place] % (Auto) 7.8 % 01/08/25 17: Eos % (Auto) 0.9 % 01/08/25: Baso % (Auto) 0.2 % 01/08/25: Neut # (Auto) 10.10 10^3/uL (1.8-7.7) H 01/08/25 17:25 Lymph # (Auto) 5.2 10^3/uL (0.8-4.8) H 01/08/25 17:25 [place]go # (Auto) 1.3 10^3/uL (0.2-0.9) H 01/08/25 17:25 Eos # (Auto) 0.2 10^3/uL (0.0-0.8) 01/08/25 17: Baso # (Auto) 0.0 10^3/uL (0.0-0.1) 01/08/25 17:25 Nucleated RBC % (auto) 0 % 01/08/25 17:25 Nucleated RBCs # 0.0 /100WBC 01/08/25 17:25 PT 12.60 SECONDS (12.1-14.9) 01/08/25 17:25 INR 0.88 (0.8-1.2) 01/08/25 17:25 Sodium 142 mmol/L (136-145) 01/08/25 17:25 Potassium 4.4 mmol/L (3.5-5.1) 01/08/25 17:25 Chloride 104 mmol/L (98-107) 01/08/25 17:25 Carbon Dioxide 25 mmol/L (22-29) 01/08/25 17:25 Anion Gap 17.4 (5-19) 01/08/25 17:25 BUN 15 mg/dL (8-23) 01/08/25 17:25 Creatinine 0.5 mg/dL (0.5-0.9) 01/08/25 17:25 GFR Calculation 125.9 mL/min (90-130) 01/08/25 17:25 Glucose 149 mg/dL (65-115) H 01/08/25 17:25 Calculated Osmolality 298 mOsm/kg (285-295) H 01/08/25 17: Calcium 10.1 mg/dL (8.5-10.5) 01/08/25 17: Total Bilirubin 0.4 mg/dL (0.15-1.2) 01/08/25 17: AST 51 U/L (0-32) H 01/08/25 17:25 ALT 31 U/L (0-33) 01/08/25 17:25 Alkaline Phosphatase 81 U/L (35-105) 01/08/25 17:25 Troponin T Baseline 12 ng/L (0-10) H 01/08/25 17:25 Troponin T 120 Minute 15.00 ng/L (0-10) H 01/08/25 19:11 Delta Troponin T 3.00 ABS# (0-10) 01/08/25 19:11 Total Protein 7.6 g/dL (6.6-8.7) 01/08/25 17:25 Albumin 4.5 g/dL (3.5-5.2) 11/25/25 17:25 Globulin 3.1 g/dL (1.3-4.6) 01/08/25 17:25 Lipase 42 U/L (13-60) 01/08/25 17:25 All radiology interpretation(s) finalized by discharge EKG Data EKG 1: I personally reviewed and interpreted this EKG as follows: EKG interpretation date: 01/08/25 EKG interpretation time: 17:22 Interpretation: sinus tach hr [address] elevation qrs 106 qtc 379 Discharge Plan Discharge Patient Disposition: Home Clinical Impression: Chest pain, Chronic pain Hip pain Qualifiers: Laterality: left Qualified Code(s): M25.552 - Pain in left hip Condition: Stable Prescriptions: New ondansetron 4 mg tablet,disintegrating 4 mg PO Q6H PRN (Reason: nausea and vomiting) Qty: 14 0RF No Action (DME) manual wheelchair See Rx Instructions .Route .MEDSUPPLY Qty: 1 0RF Rx Instructions: As directed (DME) TENS unit and equipment See Rx Instructions .Route .MEDSUPPLY Qty: 1 0RF Rx Instructions: As directed tirzepatide (weight loss) 7.5 mg/0.5 mL pen injector 7.5 mg SUBCUT .qweekly Qty: 2 2RF (DME) wheelchair See Rx Instructions .Route .MEDSUPPLY Qty: 1 0RF Rx Instructions: As directed (DME) Left wrist brace See Rx Instructions .Route .MEDSUPPLY Qty: 1 0RF Rx Instructions: As directed (DME) lancets Misc See Rx Instructions .Route Qty: 100 0RF Rx Instructions: As directed (DME) lancets Misc See Rx Instructions .MEDSUPPLY Qty: 200 12RF Rx Instructions: Use as directed to prick skin for blood sugar checks (DME) motorized electric scooter See Rx Instructions .Route .MEDSUPPLY Qty: 1 0RF Rx Instructions: As directed (DME) Blood Glucose Test Strip See Rx Instructions .MEDSUPPLY Qty: 200 12RF Rx Instructions: Use as directed with glucometer to check blood sugar (DME) lancets Misc See Rx Instructions .MEDSUPPLY Qty: 200 12RF Rx Instructions: Use as directed to prick skin for blood sugar checks naloxone [Narcan] 4 mg/actuation spray,non-aerosol 4 mg intranasal Q2M PRN (Reason: opioid overdose) Qty: 2 0RF (DME) dexcom G7 transmitter See Rx Instructions .Route .MEDSUPPLY Qty: 1 2RF Rx Instructions: As directed loperamide [Imodium A-D] 2 mg tablet 2 mg PO QID PRN (Reason: loose stool) Qty: 30 0RF (DME) portable oxygen concentrator See Rx Instructions .Route .MEDSUPPLY Qty: 1 0RF Rx Instructions: As directed hydrocodone-acetaminophen 7.5-325 mg tablet 1 tab PO BID PRN (Reason: pain) 30 Days Qty: 60 0RF morphine [MS Contin] 30 mg tablet extended release 30 mg PO .qdaily 30 Days Qty: 30 0RF (DME) CPAP 6-16cm setting See Rx Instructions .ROUTE .MEDSUPPLY Qty: 1 0RF Rx Instructions: As directed (DME) CPAP mask, tubing, supplies See Rx Instructions .ROUTE .MEDSUPPLY Qty: 1 1RF Rx Instructions: As directed (DME) Blood Glucose Test Strip See Rx Instructions .MEDSUPPLY Qty: 200 12RF Rx Instructions: Use as directed with glucometer to check blood sugar (DME) pen needle, diabetic [Pen Needle] 30 gauge x 5/16 needle See Rx Instructions .MEDSUPPLY Qty: 100 12RF Rx Instructions: Use as directed for insulin administration aspirin 81 mg tablet,chewable 81 mg PO QAM Qty: 60 0RF (DME) Dexcom G7 Solar Energy Advisor Misc See Rx Instructions .Route Qty: 1 3RF Rx Instructions: As directed meloxicam 15 mg tablet 15 mg PO QAM Qty: 90 1RF insulin glargine [Lantus Solostar U-100 Insulin] 100 unit/mL (3 mL) insulin pen 25 unit SUBCUT QAM Qty: 15 2RF metformin 500 mg tablet 1,000 mg PO BID Qty: 360 1RF gabapentin 600 mg tablet 600 mg PO TID Qty: 270 1RF nicotine 14 mg/24 hr patch 24 hour 1 patch transdermal DAILY Qty: 28 0RF quetiapine [Seroquel XR] 150 mg tablet extended release 24 hr 150 mg PO BEDTIME Qty: 90 0RF promethazine 25 mg tablet 25 mg PO TID PRN (Reason: Nausea And Vomiting) Qty: 90 0RF cetirizine [Zyrtec] 10 mg tablet 10 mg PO DAILY PRN (Reason: allergy symptoms) Qty: 90 1RF famotidine 20 mg tablet 20 mg PO QDAY Qty: 90 1RF fluticasone propionate [Flonase Allergy Relief] 50 mcg/actuation spray,suspension 2 spray intranasal DAILY Qty: 16 0RF Rx Instructions: administer into each nostril insulin lispro [Admelog SoloStar U-100 Insulin] 100 unit/mL insulin pen See Rx Instructions .ROUTE .COMPLEX Rx Instructions: Please check blood sugar 3 times a day with meals, inject 2 units subcu for blood sugars between 101 and 200, 4 units for blood sugar between 201 and 300, 6 units for blood sugar above 300, duloxetine 30 mg capsule,delayed release(DR/EC) 30 mg PO BID methylprednisolone [Medrol (Bao)] 4 mg tablets,dose pack See Rx Instructions .ROUTE .COMPLEX Qty: 21 0RF Rx Instructions: orally per package directions (DME) blood-glucose sensor Device See Rx Instructions .Route Rx Instructions: As directed Discharge Orders: Discharge ED (Routine); Ordered 01/08/25 Ordered By: Karen Oviedo Referrals: Robbie Burrell MD [Primary Care Provider, Family Practice] - 4-7 days Discharge Diet: Advance as tolerated Discharge Activity: Resume usual activity Patient Instructions: Chronic Pain (ED) Print Language: Romanian Coding Level of Care Code ED 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
[2025-01-08] MEDS: LORazepam 2 mg/mL INJ 1 mL 1 MG IVP (17:40)
[2025-01-08 18:13] LABS: Hematocrit 43.9 % (36-47); Hemoglobin 13.60 g/dL (11.27-16.99); Mean Corpuscular HGB Conc 31.0 g/dL (30-55); Mean Corpuscular Hemoglobin 29.0 pg (27-33); Mean Corpuscular Volume 93.6 fl (85-98); Nucleated Red Blood Cells % 0 %; Platelet Count 270 10^3/cmm (157-399); Red Blood Count 4.69 10^6/uL (3.85-5.65); White Blood Count 16.83 10^3/uL (3.29-11.43)
[2025-01-08 18:29] LABS: INR 0.88 (0.8-1.2); Prothrombin Time 12.60 SECONDS (12.1-14.9)
[2025-01-08 18:33] VITALS: BP 149/100; PULSE 111; O2SAT 93
[2025-01-08 18:36] LABS: Alanine Aminotransferase 31 U/L (0-33); Albumin Level 4.5 g/dL (3.5-5.2); Alkaline Phosphatase 81 U/L (35-105); Blood Urea Nitrogen 15 mg/dL (8-23); Calcium 10.1 mg/dL (8.5-10.5); Carbon Dioxide 25 mmol/L (22-29); Chloride 104 mmol/L (98-107); Globulin 3.1 g/dL (1.3-4.6); Glucose 149 mg/dL (65-115); Lipase 42 U/L (13-60); Osmolality Calculated 298 mOsm/kg (285-295); Sodium 142 mmol/L (136-145); Total Protein 7.6 g/dL (6.6-8.7)
[2025-01-08 18:37] LABS: Troponin(5th) Baseline 12 ng/L (0-10)
[2025-01-08 18:52] LABS: Anion Gap 17.4 (5-19); Aspartate Amino Transferase 51 U/L (0-32); Potassium 4.4 mmol/L (3.5-5.1)
--- NOTE | 2025-01-08 19:25 | ECG_ITS ---
[facility] Test Date: 2025-01-08 Pat Name: Cyndi Baca Department: Room: Gender: Female [employer]: : 1965 Requested By: Karen Oviedo Order Number: [id number] Ramila MD: Marbella Blankenship M.D. Measurements Intervals Anthony Rate: 117 P: 76 AL: 166 QRS: 4 QRSD: 91 T: 92 QT: 301 QTc: 421 Interpretive Statements SINUS TACHYCARDIA NONSPECIFIC T-WAVE ABNORMALITY Compared to ECG 01/08/2025 17:22:32 T-wave abnormality now present Ventricular premature complex(es) no longer present Left ventricular hypertrophy no longer present ST (T wave) deviation no longer present Myocardial infarct finding no longer present Electronically Signed On 01-10-2025 18:06:49 [employer] by Marbella Blankenship M.[email or web address]
[2025-01-08] MEDS: HYDROmorphone 0.5 MG/0.5 ML INJ IVP (19:29)
[2025-01-08 19:31] VITALS: BP 146/107; PULSE 104; RESP 20; O2SAT 95
[2025-01-08 19:38] LABS: Troponin 5 2HR 15.00 ng/L (0-10); Troponin 5 2HR Delta 3.00 ABS# (0-10)
[2025-01-08] MEDS: metoclopramide 5 mg/mL SDV 2 mL IVP (19:57)
[2025-01-08] MEDS: diphenhydrAMINE 50 mg/mL SDV 1mL 25 MG IVP (19:57)
[2025-01-08] MEDS: morphine 4 mg/mL SDV 1 mL IVP (20:33)
[2025-01-08] MEDS: LORazepam 2 mg/mL INJ 1 mL 0.5 MG IVP (20:33)
[2025-01-08 20:35] VITALS: BP 153/114; PULSE 118; O2SAT 97
[2025-01-08 21:47] VITALS: BP 126/105; PULSE 116; O2SAT 92
== END 2025-01-08 21:50 | disposition home or self-care (01) ==
PROVIDERS: Emergency Provider Emergency Medicine; PCP Family Medicine
DX: R07.9 Chest pain, unspecified (principal); G89.29 Other chronic pain; M25.551 Pain in right hip; M25.552 Pain in left hip; Z79.82 Long term (current) use of aspirin; Z79.4 Long term (current) use of insulin; Z79.84 Long term (current) use of oral hypoglycemic drugs; F17.210 Nicotine dependence, cigarettes, uncomplicated; E78.5 Hyperlipidemia, unspecified; I10 Essential (primary) hypertension
CPT/HCPCS: 71045; 80053; 83690; 84484; 85025; 85610; 93005; 96374; 96375; 96376; 99285; J1171; J1200; J2060; J2270; J2405; J2765; Q0169

== ENCOUNTER → 2025-01-25 11:02 | Outpatient (BNVA) | payer MEDICAID, SELFPAY | PROVIDERS: PCP Family Medicine; Visit Provider Dermatology | DX: D18.01 Hemangioma of skin and subcutaneous tissue (principal); R20.8 Other disturbances of skin sensation; R23.8 Other skin changes; R58 Hemorrhage, not elsewhere classified | CPT/HCPCS: 11403; 12032 ==